=== PATIENT | male | born 1950 | race Caucasian/White ===

== ENCOUNTER 2020-04-22 06:16 | Outpatient (REF) | payer MEDICARE, SELFPAY ==
[2020-04-22 07:21] LABS: MANUAL DIFF FLAG NO
[2020-04-22 07:24] LABS: Basophils Percent Auto 0.5 % (0-2); Eosinophils Absolute Auto 0.3 X10*3/uL (0.0-0.4); Eosinophils Percent Auto 4.7 % (0-4); Hemoglobin 14.4 g/dl (14.0-18.0); Imm Gran Abs Auto 0.05 X10*3/uL (0.00-0.03); Imm Gran Pct Auto 0.8 % (0.0-0.4); Lymphocytes Absolute Auto 1.3 X10*3/uL (1.2-4.9); Lymphocytes Percent Auto 21.5 % (20-40); Mean Corpuscular HGB Conc 32.7 g/dl (31.0-36.0); Mean Corpuscular Volume 97.8 fL (80-98); Mean Platelet Volume 9.8 fL (9.4-12.4); Monocytes Absolute Auto 0.3 X10*3/uL (0.1-1.2); Monocytes Percent Auto 5.6 % (2-11); Neutrophils Absolute Auto 3.9 X10*3/uL (2.0-8.3); Neutrophils Percent Auto 66.9 % (45-73); Platelet Count 188 X10*3/uL (160-400); Red Cell Distribution Width 13.3 % (11.0-16.0); White Blood Count 5.9 X10*3/uL (4.8-10.8)
[2020-04-22 07:38] LABS: Glucose Urine UA NEG (NEG); Leukocyte Esterase Urine NEG (NEG); Nitrite Urine NEG (NEG); PH 5.5 (5.0-8.0); Specific Gravity - Urine >= 1.030 (1.005-1.025); Urine Blood 1+ (NEG); Urine Ketones NEG (NEG); Urine Protein 1+ MG/DL (NEG-TRACE)
[2020-04-22 07:39] LABS: Appearance Urine CLEAR; Color Urine YELLOW
[2020-04-22 07:40] LABS: Alanine Aminotransferase 12 U/L (0-40); Albumin Level 4.3 g/dL (3.5-5.0); Alkaline Phosphatase 91 U/L (39-117); Anion Gap 12 (12-20); Aspartate Amino Transferase 10 U/L (5-37); Bilirubin Total 0.5 mg/dL (0.0-1.0); Blood Urea Nitrogen 18 mg/dL (9-16); Calcium 8.8 mg/dL (8.4-10.2); Carbon Dioxide 28 mmol/L (22-29); Chloride 108 mmol/L (96-108); Cholesterol 128 mg/dL; Estimated Glomerular Filt Rate 57; Glucose Fasting 99 mg/dL (60-99); HDL Cholesterol 53 mg/dL; LDL Cholesterol Calculated 26 mg/dl; Potassium 4.5 mmol/l (3.3-5.1); Sodium 143 mmol/L (135-145); Total Protein 6.3 g/dL (6.5-8.0); Triglycerides 247 mg/dL
[2020-04-22 07:47] LABS: Squamous Epithelial Cell Urine TRACE /LPF; WBC Urine 0-2 /HPF (0-4)
[2020-04-22 07:53] LABS: Estimated Average Glucose 105 mg/dL; Hemoglobin A1c % 5.3 %
[2020-04-22 08:03] LABS: PSA,Total (Free>4and<10) < 0.05 ng/mL (0.00-4.00)
[2020-04-22 08:05] LABS: TSH reflex Free T4 0.48 mIU/mL (0.32-4.0)
[2020-04-22 08:16] LABS: Folate 19.8 ng/mL (> or = 4.0); Vitamin B12 563 pg/mL (200-900)
[2020-04-22 08:20] LABS: Mucus Urine TRACE /LPF
[2020-04-22 08:27] LABS: Reflex LDLD? No
== END 2020-04-22 06:17 | disposition home or self-care (01) ==
LOC: HO.LAB 06:16
PROVIDERS: PCP Internal Medicine; Visit Provider Internal Medicine
DX: Z00.00 Encounter for general adult medical examination without abnormal findings (principal); I10 Essential (primary) hypertension; E78.5 Hyperlipidemia, unspecified; R73.01 Impaired fasting glucose; R20.2 Paresthesia of skin; C61 Malignant neoplasm of prostate; K52.0 Gastroenteritis and colitis due to radiation; Z12.5 Encounter for screening for malignant neoplasm of prostate
CPT/HCPCS: 36415; 80053; 80061; 81001; 82607; 82746; 83036; 84153; 84443; 85025

== ENCOUNTER 2021-03-10 09:54 | Outpatient (REF) | payer MEDICARE, SELFPAY ==
[2021-03-10 10:11] LABS: MANUAL DIFF FLAG NO
[2021-03-10 10:27] LABS: Basophils Percent Auto 0.3 % (0-2); Eosinophils Absolute Auto 0.5 X10*3/uL (0.0-0.4); Hematocrit 49.3 % (42.0-52.0); Hemoglobin 15.9 g/dl (14.0-18.0); Imm Gran Abs Auto 0.06 X10*3/uL (0.00-0.03); Imm Gran Pct Auto 0.7 % (0.0-0.4); Lymphocytes Absolute Auto 1.6 X10*3/uL (1.2-4.9); Lymphocytes Percent Auto 17.3 % (20-40); Mean Corpuscular HGB Conc 32.3 g/dl (31.0-36.0); Mean Corpuscular Hemoglobin 31.5 pg (27.0-33.0); Mean Corpuscular Volume 97.6 fL (80.0-98.0); Mean Platelet Volume 9.8 fL (9.4-12.4); Monocytes Absolute Auto 0.6 X10*3/uL (0.1-1.2); Monocytes Percent Auto 6.8 % (2-11); Neutrophils Absolute Auto 6.2 x10*3/uL (2.0-8.3); Neutrophils Percent Auto 68.9 % (45-73); Platelet Count 224 X10*3/uL (160-400); Red Blood Count 5.05 X10*6/uL (4.60-5.80)
[2021-03-10 11:07] LABS: Appearance Urine CLEAR; Color Urine YELLOW; Glucose Urine UA NEG (NEG); Leukocyte Esterase Urine NEG (NEG); Nitrite Urine NEG (NEG); PH 6.5 (5.0-8.0); Urine Blood NEG (NEG); Urine Ketones NEG (NEG); Urine Protein NEG (NEG-TRACE)
[2021-03-10 11:11] LABS: Alanine Aminotransferase 19 U/L (0-40); Albumin Level 4.6 g/dL (3.5-5.0); Alkaline Phosphatase 86 U/L (39-117); Anion Gap 12 (12-20); Aspartate Amino Transferase 19 U/L (5-37); Bilirubin Total 0.5 mg/dL (0.0-1.0); Blood Urea Nitrogen 14 mg/dL (9-16); Calcium 9.8 mg/dL (8.4-10.2); Carbon Dioxide 28 mmol/L (22-29); Chloride 105 mmol/L (96-108); Cholesterol 173 mg/dL; Estimated Glomerular Filt Rate 60; Glucose Fasting 93 mg/dL (60-99); HDL Cholesterol 52 mg/dL; LDL Cholesterol Calculated 60 mg/dl; Potassium 4.4 mmol/L (3.3-5.1); Sodium 141 mmol/L (135-145); Total Protein 6.9 g/dL (6.5-8.0); Triglycerides 309 mg/dL
== END 2021-03-10 09:55 | disposition home or self-care (01) ==
LOC: HO.LAB 09:54
PROVIDERS: PCP Internal Medicine; Visit Provider Internal Medicine
DX: I10 Essential (primary) hypertension (principal); K52.0 Gastroenteritis and colitis due to radiation; E78.00 Pure hypercholesterolemia, unspecified; R73.01 Impaired fasting glucose
CPT/HCPCS: 36415; 80053; 80061; 81003; 85025

== ENCOUNTER 2021-07-14 12:43 | Outpatient (REF) | payer MEDICARE, SELFPAY ==
[2021-07-14 13:04] LABS: MANUAL DIFF FLAG NO
[2021-07-14 13:36] LABS: Basophils Percent Auto 0.3 % (0-2); Eosinophils Absolute Auto 0.5 X10*3/uL (0.0-0.4); Hematocrit 43.5 % (42.0-52.0); Hemoglobin 14.3 g/dl (14.0-18.0); Imm Gran Abs Auto 0.02 X10*3/uL (0.00-0.03); Imm Gran Pct Auto 0.3 % (0.0-0.4); Lymphocytes Absolute Auto 1.4 X10*3/uL (1.2-4.9); Lymphocytes Percent Auto 22.7 % (20-40); Mean Corpuscular HGB Conc 32.9 g/dl (31.0-36.0); Mean Corpuscular Hemoglobin 30.9 pg (27.0-33.0); Mean Platelet Volume 9.7 fL (9.4-12.4); Monocytes Absolute Auto 0.5 X10*3/uL (0.1-1.2); Monocytes Percent Auto 7.9 % (2-11); Neutrophils Absolute Auto 3.6 x10*3/uL (2.0-8.3); Neutrophils Percent Auto 60.8 % (45-73); Platelet Count 184 X10*3/uL (160-400); Red Blood Count 4.63 X10*6/uL (4.60-5.80)
[2021-07-14 14:06] LABS: Estimated Average Glucose 108 mg/dL; Hemoglobin A1c % 5.4 %
[2021-07-14 14:24] LABS: Alanine Aminotransferase 16 U/L (0-40); Albumin Level 4.5 g/dL (3.5-5.0); Alkaline Phosphatase 84 U/L (39-117); Anion Gap 12 (12-20); Aspartate Amino Transferase 17 U/L (5-37); Bilirubin Total 0.7 mg/dL (0.0-1.0); Blood Urea Nitrogen 25 mg/dL (9-16); Calcium 9.1 mg/dL (8.4-10.2); Carbon Dioxide 24 mmol/L (22-29); Chloride 104 mmol/L (96-108); Cholesterol 133 mg/dL; Estimated Glomerular Filt Rate 54; Glucose Fasting 80 mg/dL (60-99); HDL Cholesterol 39 mg/dL; LDL Cholesterol Calculated 64 mg/dl; Potassium 4.3 mmol/L (3.3-5.1); Sodium 136 mmol/L (135-145); Total Protein 6.7 g/dL (6.5-8.0); Triglycerides 154 mg/dL
[2021-07-14 14:47] LABS: Vitamin D 25-OH Total 38.8 ng/mL (>30)
[2021-07-14 14:47] LABS: Appearance Urine CLEAR; Color Urine YELLOW; Glucose Urine UA NEG (NEG); Leukocyte Esterase Urine NEG (NEG); Nitrite Urine NEG (NEG); PH 5.5 (5.0-8.0); Specific Gravity - Urine >= 1.030 (1.005-1.025); Urine Blood NEG (NEG); Urine Ketones NEG (NEG); Urine Protein NEG (NEG-TRACE)
== END 2021-07-14 12:44 | disposition home or self-care (01) ==
LOC: HO.LAB 12:43
PROVIDERS: PCP Internal Medicine; Visit Provider Internal Medicine
DX: I10 Essential (primary) hypertension (principal); E78.00 Pure hypercholesterolemia, unspecified; E55.9 Vitamin D deficiency, unspecified; R73.01 Impaired fasting glucose
CPT/HCPCS: 36415; 80053; 80061; 81003; 82306; 83036; 84443; 85025

== ENCOUNTER → 2021-08-14 07:44 | Outpatient (BNVA) | payer MEDICARE, SELFPAY | PROVIDERS: PCP Internal Medicine; Referring Provider Internal Medicine; Visit Provider Physician Assistant | DX: R19.5 Other fecal abnormalities (principal); K57.30 Diverticulosis of large intestine without perforation or abscess without bleeding; Z79.02 Long term (current) use of antithrombotics/antiplatelets; Z79.891 Long term (current) use of opiate analgesic | CPT/HCPCS: 99202 ==

== ENCOUNTER → 2021-08-21 15:27 | Outpatient (BNVA) | payer MEDICARE, SELFPAY | PROVIDERS: PCP Internal Medicine; Referring Provider Internal Medicine; Visit Provider Surgery | DX: R19.8 Other specified symptoms and signs involving the digestive system and abdomen (principal); K64.9 Unspecified hemorrhoids | CPT/HCPCS: 46600; 99202 ==

== ENCOUNTER 2021-10-16 13:10 | Outpatient (REF) | payer MEDICARE, SELFPAY ==
[2021-10-16 13:27] LABS: MANUAL DIFF FLAG NO
[2021-10-16 13:45] LABS: Basophils Percent Auto 0.3 % (0-2); Eosinophils Absolute Auto 0.5 X10*3/uL (0.0-0.4); Hematocrit 42.8 % (42.0-52.0); Hemoglobin 14.2 g/dl (14.0-18.0); Imm Gran Abs Auto 0.03 X10*3/uL (0.00-0.03); Imm Gran Pct Auto 0.3 % (0.0-0.4); Lymphocytes Absolute Auto 1.4 X10*3/uL (1.2-4.9); Lymphocytes Percent Auto 15.7 % (20-40); Mean Corpuscular HGB Conc 33.2 g/dl (31.0-36.0); Mean Corpuscular Volume 93.4 fL (80.0-98.0); Mean Platelet Volume 9.9 fL (9.4-12.4); Monocytes Absolute Auto 0.7 X10*3/uL (0.1-1.2); Monocytes Percent Auto 7.5 % (2-11); Neutrophils Absolute Auto 6.5 x10*3/uL (2.0-8.3); Neutrophils Percent Auto 71.2 % (45-73); Platelet Count 191 X10*3/uL (160-400); Red Blood Count 4.58 X10*6/uL (4.60-5.80); Red Cell Distribution Width 13.2 % (11.0-16.0); White Blood Count 9.1 X10*3/uL (4.8-10.8)
[2021-10-16 14:09] LABS: Alanine Aminotransferase 13 U/L (0-40); Albumin Level 4.4 g/dL (3.5-5.0); Alkaline Phosphatase 77 U/L (39-117); Anion Gap 12 (12-20); Aspartate Amino Transferase 19 U/L (5-37); Bilirubin Total 0.5 mg/dL (0.0-1.0); Blood Urea Nitrogen 18 mg/dL (9-16); Calcium 9.1 mg/dL (8.4-10.2); Carbon Dioxide 25 mmol/L (22-29); Chloride 103 mmol/L (96-108); Cholesterol 130 mg/dL; Estimated Glomerular Filt Rate 48; Glucose Fasting 99 mg/dL (60-99); HDL Cholesterol 38 mg/dL; LDL Cholesterol Calculated 58 mg/dl; Potassium 5.1 mmol/L (3.3-5.1); Sodium 135 mmol/L (135-145); Total Protein 6.5 g/dL (6.5-8.0); Triglycerides 173 mg/dL
[2021-10-16 14:13] LABS: Estimated Average Glucose 108 mg/dL; Hemoglobin A1c % 5.4 %
[2021-10-16 14:17] LABS: Appearance Urine CLEAR; Color Urine YELLOW; Glucose Urine UA NEG (NEG); Leukocyte Esterase Urine NEG (NEG); Nitrite Urine NEG (NEG); PH 5.5 (5.0-8.0); Urine Blood NEG (NEG); Urine Ketones NEG (NEG); Urine Protein TRACE MG/DL (NEG-TRACE)
[2021-10-16 14:32] LABS: Vitamin D 25-OH Total 37.7 ng/mL (>30)
== END 2021-10-16 13:11 | disposition home or self-care (01) ==
LOC: HO.LAB 13:10
PROVIDERS: PCP Internal Medicine; Visit Provider Internal Medicine
DX: I10 Essential (primary) hypertension (principal); E78.00 Pure hypercholesterolemia, unspecified; R73.01 Impaired fasting glucose; E55.9 Vitamin D deficiency, unspecified
CPT/HCPCS: 36415; 80053; 80061; 81003; 82306; 83036; 84443; 85025

== ENCOUNTER 2021-12-11 07:16 | Day surgery (SDC) | payer MEDICARE, SELFPAY ==
--- NOTE | 2021-12-10 12:10 | HO.ANESPROP2 ---
Documented by User: Kateryna Armenta NP 12/10/21 12:12 HPI - Anesthesia Eval Consult details Narrative: 71yo M for Colonoscopy Plavix s/p carotid artery stenting 2014 [facility] Active Problems Active Problems: All Active Problems (Updated 10/20/21 @ 10:54 by Jayy Foster MD) Annual physical exam (Acute) Anal discharge (Acute) Encounter for long-term (current) use of antiplatelets/antithrombotics (Acute) Diverticulosis of colon (Acute) Positive colorectal cancer screening using Cologuard test (Acute) Perianal lesion (Acute) Perianal infection (Acute) Epilepsy (Acute) Depression (Acute) Anxiety (Acute) Prostate cancer (Acute) Restless legs syndrome (Acute) Radiation colitis (Acute) Degenerative disc disease, cervical (Acute) Impaired fasting glucose (Acute) Pure hypercholesterolemia (Acute) Bilateral carotid artery stenosis (Acute) Benign essential hypertension (Acute) Past Medical History Medical History Anal discharge Anxiety Basilar artery aneurysm Benign essential hypertension Bilateral carotid artery stenosis Cerebellar hemorrhage Degenerative disc disease, cervical Depression Epilepsy Impaired fasting glucose Prostate cancer Pure hypercholesterolemia Radiation colitis Restless legs syndrome Family History Family History Father Cancer Mother Chronic mental illness Son In good health Daughter In good health Surgical History Surgical History H/O radical prostatectomy History of common carotid artery stent placement History of inguinal hernia repair Hx of colonoscopy Social History Social History Housing: House Alcohol intake: never Patient Tobacco Use Status: Former Tobacco user Quit Date: quit 7 yrs ago Tobacco use type: Cigarette e-Cigarette/Vaping Use: Never Used Second Hand Smoke Exposure: No Substance Use Type: Marijuana Substance Use Frequency: Daily Are you DNR?: No Advance Directives: No Advance Directives Information Provided: Yes service: No Current occupational status: retired Cognitive needs: No Hearing needs: No Vision needs: Yes Meds Allergies Allergy/AdvReac Type Severity Reaction Status Date / Time zolpidem AdvReac Unknown sleepwalkin Verified 10/20/21 10:37 g Home Medications Medication Instructions Recorded Confirmed Last Taken Type clopidogrel 75 mg tablet 75 mg PO DAILY 08/14/21 10/20/21 Unknown History Exam Exam Date and Time: December 10, 2021 1210 Pertinent Lab Results Pertinent Lab Results: Laboratory Tests 10/16/21 10/16/21 13:25 13:25 WBC 9.1 Hgb 14.2 Hct 42.8 Plt Count 191 Sodium 135 Potassium 5.1 Chloride 103 Carbon Dioxide 25 BUN 18 H Creatinine 1.44 H Assessment and Plan Assessment Anesthesia Assessment: Chart Reviewed Documented by User: Selin Valerio MD 12/11/21 09:00 PMFSH Past Medical History Medical History Anal discharge Anxiety Basilar artery aneurysm Benign essential hypertension Bilateral carotid artery stenosis Cerebellar hemorrhage Degenerative disc disease, cervical Depression Epilepsy Impaired fasting glucose Prostate cancer Pure hypercholesterolemia Radiation colitis Restless legs syndrome Functional capacity: independent ambulation Family History Family History Father Cancer Mother Chronic mental illness Son In good health Daughter In good health Family history of problems with anesthesia: No Surgical History Surgical History H/O radical prostatectomy History of common carotid artery stent placement History of inguinal hernia repair Hx of colonoscopy History of Problems with Anesthesia: No Social History Social History Housing: House Alcohol intake: never Patient Tobacco Use Status: Former Tobacco user Quit Date: quit 7 yrs ago Tobacco use type: Cigarette e-Cigarette/Vaping Use: Never Used Second Hand Smoke Exposure: No Substance Use Type: Marijuana Substance Use Frequency: Daily Are you DNR?: No Advance Directives: No Advance Directives Information Provided: Yes service: No Current occupational status: retired Cognitive needs: No Hearing needs: No Vision needs: Yes Meds Allergies Allergy/AdvReac Type Severity Reaction Status Date / Time zolpidem AdvReac Unknown sleepwalkin Verified 10/20/21 10:37 g Home Medications Medication Instructions Recorded Confirmed Last Taken Type clopidogrel 75 mg tablet 75 mg PO DAILY 08/14/21 10/20/21 Unknown History Exam Airway Mallampati Class: III TM Dist: >3cm Neck ROM: Full Heart: RRR Lungs: CTA Assessment and Plan Final Anesthetic Review Family History of Problems with Anesthesia: No History of Problems with Anesthesia: No ASA Class: III Final Preanesthetic Review: No Changes in Pt Med Stat, Meds/Allgs Chart Reviewed, Consent Obtained/Reviewed and Anes Risks/Benef Reviewed Patient Risk: Low Anesthetic Plan Anesthetic Plan: MAC: Disposition: Standard PACU
[2021-12-11 07:44] VITALS: BMI 21.1
[2021-12-11] MEDS: Lactated Ringers 1,000 ML 100 ML IVCONT (07:54)
[2021-12-11 07:55] VITALS: BP 134/80; PULSE 80; RESP 16; TEMP 36.2; O2SAT 97
--- NOTE | 2021-12-11 08:53 | MHC.SHP ---
Pre-Procedural Eval Section A Date of Service: 12/11/21 Section B Chief Complaint: fecal abnormalities Relevant Family History (Specify if Yes): No Relevant Social History: Other (specify) (THC use) Present Medications: see Short Stay Collaborative assessment Medical History: Significant History (Anal discharge Anxiety Basilar artery aneurysm Benign essential hypertension Bilateral carotid artery stenosis Cerebellar hemorrhage Degenerative disc disease, cervical Depression Epilepsy Impaired fasting glucose Prostate cancer Pure hypercholesterolemia Radiation colitis Restless legs syndrome) History of Previous Operations: Relevant previous surgery/procedure and date(s) (H/O radical prostatectomy History of common carotid artery stent placement History of inguinal hernia repair Hx of colonoscopy) Allergies: Allergies Allergy/AdvReac Type Severity Reaction Status Date / Time zolpidem AdvReac Unknown sleepwalkin Verified 10/20/21 10:37 g Review of Systems Sugical H&P ROS: Negative: Constitution, Cardiovascular, Respiratory, Neurological, Psychiatric, Hem-Onc, Allergic/Immunologic, Gastrointestinal, Genitourinary, Musculoskeletal, Integumentary, Endocrine and Eyes/Ears/Nose/Throat Exam Surgical H&P Exam: Normal: HEENT, Normal: Heart, Normal: Lungs, Normal: Extremities, Normal: Abdomen, Normal: Skin and Normal: Neurological Plan Diagnosis/Plan: Unchanged I have reviewed the history and physical and performed a pertinent physical examination on my patient. No changes have occurred unless specified.
--- NOTE | 2021-12-11 09:17 | P.OP_ITS ---
Operative Note Operative Note Date of Service: 12/11/21 Narrative: Operative Information Procedure Description: Colonoscopy Indication: pos cologuard Anesthesia: MAC COLONOSCOPY Instrument: Olympus variable stiffness pediatric scope 190L Colonoscopy Monitoring: Vital signs and clinical assessment, continuous EKG monitoring, Pulse oximetry, Carbon Dioxide monitoring and blood pressure monitoring were done throughout the procedure. Colon withdrawal time was 15 minutes. Procedure: The patient was placed in the left lateral decubitis position and pre-procedure medications were administered. After a digital rectal examination of the ano-rectum, the video colonoscope was inserted into the rectum and advanced through the colon to the cecum/TI. The colonoscope was slowly withdrawn in a retrograde panoramic fashion and the colon mucosa was carefully examined including a retroflexed view of the rectum. Findings and interventions are described below. Procedure Difficulty: easy Findings: Terminal Ileum-normal Cecum:normal Ascending Colon: mild diverticulosis Transverse Colon -normal Descending Colon:normal Sigmoid Colon: severe diverticulosis with luminal narrowing and mucosal hypertrophy Rectum: Retroflexion not done due to rectal inflammation and ucleration. At analrectal junction a shallow ulceration 10-12 mm with surrounding edema and induration noted, bx taken, Also scattered telangiectasia seen compatible with radiation proctitis. At the rectosigmoid junction there was a12 mm semi peudculated polyp which was injected with few cc of epinephrine and then removed with hot snare. Edges ablated with soft tip coag. Anorectum - normal Colon preparation: [place] Bowel Preparation Scale Right colon; 3 Transverse colon: 3 Left colon; 3 (0 = Unprepared colon segment with mucosa not seen due to solid stool that cannot be cleared. 1 = Portion of mucosa of the colon segment seen, but other areas of the colon segment not well seen due to staining, residual stool and/or opaque liquid. 2 = Minor amount of residual staining, small fragments of stool and/or opaque liquid, but mucosa of colon segment seen well. 3 = Entire mucosa of colon segment seen well with no residual staining, small fragments of stool or opaque liquid) Impression and Post Procedure Diagnosis: polyp rectal ulceration radiation proctitis (RAVE) diverticular disease Plan: High fiber diet leaflet Avoid straining at stool, epsom salts and sitz bath, anusol supps or cream Repeat Colonoscopy in 6-12 month or earlier if clinically indicated depending on path may need steroid cream, avoid constipation. restart plavix tomorrow Above findings were reviewed with the patient and relevant handouts were provided if indicated.
[2021-12-11 09:23] VITALS: BP 106/55; PULSE 64; RESP 16; TEMP 36.5; O2SAT 96
[2021-12-11 09:38] VITALS: BP 140/74; PULSE 60; RESP 16; TEMP 36.5; O2SAT 96
[2021-12-11 09:53] VITALS: BP 152/86; PULSE 69; RESP 16; O2SAT 96
[2021-12-11 10:08] VITALS: BP 160/80; PULSE 71; RESP 16; TEMP 36.6; O2SAT 95
--- NOTE | 2021-12-11 13:22 | HO.POSTANES ---
Post Anesthesia Evaluation Post Anesthesia Evaluation Vital Signs: Vital Signs Temp Pulse Resp BP Pulse Ox O2 Del Method 12/11/21 10:08 97.9 F 71 16 160/80 H 95 Room Air 12/11/21 09:53 69 16 152/86 H 96 Room Air 12/11/21 09:38 97.7 F 60 16 140/74 H 96 Room Air 12/11/21 09:23 97.7 F 64 16 106/55 L 96 Room Air 12/11/21 07:55 97.2 F 80 16 134/80 97 Room Air Anesthesia: Monitored Mental Status: Awake Pain Control: Satisfactory Nausea/Vomiting: None Hydration: Adequate Anesthesia-Related Issues: No Anes. Related Issues
== END 2021-12-11 10:42 ==
LOC: HO.SSS 07:16
PROVIDERS: PCP Internal Medicine; Visit Provider Internal Medicine Gastroenterology
PROC: 0DJD8ZZ Inspection of Lower Intestinal Tract, Via Natural or Artificial Opening Endoscopic (ICD-10-PCS; CPT 45378; principal; 2021-12-11 08:30)
DX: R19.5 Other fecal abnormalities (principal); D12.8 Benign neoplasm of rectum; K62.6 Ulcer of anus and rectum; K57.30 Diverticulosis of large intestine without perforation or abscess without bleeding; K62.7 Radiation proctitis; Y84.2 Radiological procedure and radiotherapy as the cause of abnormal reaction of the patient, or of later complication, without mention of misadventure at the time of the procedure; K31.819 Angiodysplasia of stomach and duodenum without bleeding; G40.909 Epilepsy, unspecified, not intractable, without status epilepticus; I10 Essential (primary) hypertension; F32.A Depression, unspecified; R73.02 Impaired glucose tolerance (oral); Z85.46 Personal history of malignant neoplasm of prostate; Z79.899 Other long term (current) drug therapy; Z79.02 Long term (current) use of antithrombotics/antiplatelets; Z88.8 Allergy status to other drugs, medicaments and biological substances; Z92.3 Personal history of irradiation; Z87.891 Personal history of nicotine dependence
CPT/HCPCS: 45385; 45380; 88305; J0171

== ENCOUNTER → 2021-12-25 11:03 | Outpatient (BNVA) | payer MEDICARE, SELFPAY | PROVIDERS: PCP Internal Medicine; Visit Provider Physician Assistant | DX: D12.8 Benign neoplasm of rectum (principal); Z98.890 Other specified postprocedural states | CPT/HCPCS: Q3014 ==

== ENCOUNTER 2022-01-08 06:07 | Outpatient (REF) | payer MEDICARE, SELFPAY ==
[2022-01-08 07:25] LABS: Basophils Absolute Auto 0.1 X10*3/uL (0.0-0.2); Basophils Percent Auto 0.6 % (0-2); Eosinophils Absolute Auto 0.3 X10*3/uL (0.0-0.4); Eosinophils Percent Auto 3.9 % (0-4); Hematocrit 49.8 % (42.0-52.0); Hemoglobin 16.2 g/dl (14.0-18.0); Imm Gran Abs Auto 0.03 X10*3/uL (0.00-0.03); Imm Gran Pct Auto 0.4 % (0.0-0.4); Lymphocytes Percent Auto 23.8 % (20-40); MANUAL DIFF FLAG SCAN; Mean Corpuscular HGB Conc 32.5 g/dl (31.0-36.0); Mean Corpuscular Hemoglobin 30.3 pg (27.0-33.0); Mean Corpuscular Volume 93.1 fL (80.0-98.0); Mean Platelet Volume 11.1 fL (9.4-12.4); Monocytes Absolute Auto 0.7 X10*3/uL (0.1-1.2); Monocytes Percent Auto 7.9 % (2-11); Neutrophils Absolute Auto 5.4 x10*3/uL (2.0-8.3); Neutrophils Percent Auto 63.4 % (45-73); PLT CLUMP 1; Red Blood Count 5.35 X10*6/uL (4.60-5.80); Red Cell Distribution Width 14.2 % (11.0-16.0); SCAN SMEAR FLAG 1
[2022-01-08 07:26] LABS: Platelet Count 169 X10*3/uL (160-400); White Blood Count 8.6 X10*3/uL (4.8-10.8)
[2022-01-08 07:32] LABS: Appearance Urine Clear; Color Urine Yellow; Estimated Average Glucose 103 mg/dL; Glucose Urine UA Negative (Negative); Hemoglobin A1c % 5.2 %; Leukocyte Esterase Urine Negative (Negative); Nitrite Urine Negative (Negative); Specific Gravity - Urine >= 1.030 (1.005-1.025); UMIC TRIGGER UACC YES; Urine Blood Negative (Negative); Urine Ketones Negative (Negative); Urine Protein 30 (1+) mg/dL (Neg-Trace)
[2022-01-08 07:41] LABS: WBC Urine 0-5 /HPF (0-5)
[2022-01-08 07:42] LABS: Bacteria Urine None Seen (None Seen); Granular Casts Urine Present; Hyaline Casts Urine 0-2 /LPF (0-2); RBC Urine 0-2 /HPF (0-2); Squamous Epithelial Cell Urine 0-2 /HPF (0-2)
[2022-01-08 07:46] LABS: SLIDE REVIEW VERIFIED
[2022-01-08 07:49] LABS: Alanine Aminotransferase 22 U/L (0-40); Albumin Level 4.7 g/dL (3.5-5.0); Alkaline Phosphatase 89 U/L (39-117); Anion Gap 17 (12-20); Aspartate Amino Transferase 24 U/L (5-37); Bilirubin Total 0.6 mg/dL (0.0-1.0); Blood Urea Nitrogen 17 mg/dL (9-16); Calcium 9.6 mg/dL (8.4-10.2); Carbon Dioxide 23 mmol/L (22-29); Chloride 105 mmol/L (96-108); Cholesterol 146 mg/dL; Estimated Glomerular Filt Rate 52; Glucose Fasting 100 mg/dL (60-99); HDL Cholesterol 44 mg/dL; LDL Cholesterol Calculated 74 mg/dl; Potassium 4.6 mmol/L (3.3-5.1); Sodium 140 mmol/L (135-145); Total Protein 7.2 g/dL (6.5-8.0); Triglycerides 143 mg/dL
[2022-01-08 08:23] LABS: Folate > 20.0 ng/mL (> or = 4.0); Vitamin B12 1120 pg/mL (200-900)
[2022-01-08 08:56] LABS: Prostate Specific Antigen < 0.05 ng/mL (<0.05-4.0); TSH reflex Free T4 1.08 uIU/mL (0.32-4.0); Vitamin D 25-OH Total 46.4 ng/mL (>30)
== END 2022-01-08 06:08 | disposition home or self-care (01) ==
LOC: HO.LAB 06:07
PROVIDERS: PCP Internal Medicine; Visit Provider Internal Medicine
DX: Z00.00 Encounter for general adult medical examination without abnormal findings (principal); Z12.5 Encounter for screening for malignant neoplasm of prostate; I10 Essential (primary) hypertension; N40.0 Benign prostatic hyperplasia without lower urinary tract symptoms; R73.01 Impaired fasting glucose; E53.8 Deficiency of other specified B group vitamins; E78.00 Pure hypercholesterolemia, unspecified; E55.9 Vitamin D deficiency, unspecified
CPT/HCPCS: 36415; 80053; 80061; 81001; 82306; 82607; 82746; 83036; 84153; 84443; 85025

== ENCOUNTER 2022-01-09 11:23 | Emergency (ER) | payer MEDICARE, SELFPAY ==
[2022-01-09] VITALS (7 sets, daily range): BP systolic 65–148; BP diastolic 52–83; PULSE 92–111; RESP 18–26; TEMP 36.6–36.8; O2SAT 98–100
--- NOTE | ~2022-01-09 | CT_ITS ---
EXAMINATION: CT ABDOMEN AND PELVIS WITHOUT AND WITH CONTRAST CLINICAL INFORMATION: GI bleeding. COMPARISON: 08/12/2018. TECHNIQUE: Contiguous axial thin section helical images of the abdomen and pelvis were performed following the administration of oral contrast and 80 mL of intravenous Omnipaque 350. The data set was reformatted in the coronal and sagittal planes and reviewed on an independent workstation. This CT examination was performed using dose optimization techniques as appropriate, variously including the following: *Automated exposure control *Adjustment of mA and/or kV according to patient size (this includes techniques or standardized protocols for targeted exams where dose is matched to indication/reason for exam; i.e. extremities or head) *Use of iterative reconstruction technique DLP: 1140 mGy-cm FINDINGS: GASTROINTESTINAL TRACT: There is severe diverticulosis throughout the colon especially distal colon but no definite acute transition of contrast is seen to indicate active bleeding. There is no discernible mass contrast blush or abnormal enhancement. LUNG BASES: No focal parenchymal or pleural disease. No pericardial effusion. LIVER, GALLBLADDER, BILIARY TREE: Within normal limits. No focal lesion. PANCREAS: No mass or inflammatory changes. Incidental punctate calcific lesion within the body. SPLEEN: No focal lesion or enlargement. ADRENAL GLANDS AND KIDNEYS: No focal lesion. No mass, calculus or hydronephrosis. Tiny subcentimeter posterior exophytic cyst lower mid pole right kidney. PELVIS: There is no pelvic mass. Pelvic organs within normal limits. URETERS AND BLADDER: . LYMPHOVASCULAR STRUCTURES: No pathologic enlargement. BONES: No lytic or sclerotic lesions. No fracture. CT/CT gi bleed abd pel wo/w IVcon IMPRESSION: Severe diverticulosis but no active sites of bleeding is noted. No new findings since baseline exam..
--- NOTE | 2022-01-09 11:29 | ECG_ITS ---
Test Reason : Tachycardia Blood Pressure : / mmHG Vent. Rate : 111 BPM Atrial Rate : 111 BPM P-R Int : 174 ms QRS Dur : 074 ms QT Int : 328 ms P-R-T Axes : 083 -46 075 degrees QTc Int : 446 ms Sinus tachycardia Left axis deviation Abnormal ECG When compared with ECG of 02-JAN-2006 05:40, Nonspecific T wave abnormality is no longer Present Heart rate has increased Referred By: Steve Velez Electronically Signed By:JOSSE SANTAMARIA
[2022-01-09 11:48] LABS: MANUAL DIFF FLAG NO
[2022-01-09] MEDS: 0.9 % Sodium Chloride 1,000 ML 999 ML IV (11:48)
[2022-01-09 11:50] LABS: Basophils Absolute Auto 0.1 X10*3/uL (0.0-0.2); Basophils Percent Auto 0.6 % (0-2); Eosinophils Absolute Auto 0.3 X10*3/uL (0.0-0.4); Eosinophils Percent Auto 2.3 % (0-4); Hematocrit 39.5 % (42.0-52.0); Hemoglobin 13.1 g/dl (14.0-18.0); Imm Gran Abs Auto 0.05 X10*3/uL (0.00-0.03); Imm Gran Pct Auto 0.5 % (0.0-0.4); Lymphocytes Absolute Auto 1.9 X10*3/uL (1.2-4.9); Lymphocytes Percent Auto 17.5 % (20-40); Mean Corpuscular HGB Conc 33.2 g/dl (31.0-36.0); Mean Corpuscular Hemoglobin 30.8 pg (27.0-33.0); Mean Corpuscular Volume 92.9 fL (80.0-98.0); Mean Platelet Volume 9.7 fL (9.4-12.4); Monocytes Absolute Auto 0.8 X10*3/uL (0.1-1.2); Monocytes Percent Auto 7.4 % (2-11); Neutrophils Absolute Auto 7.7 x10*3/uL (2.0-8.3); Neutrophils Percent Auto 71.7 % (45-73); Platelet Count 181 X10*3/uL (160-400); Red Blood Count 4.25 X10*6/uL (4.60-5.80); Red Cell Distribution Width 13.9 % (11.0-16.0); White Blood Count 10.7 X10*3/uL (4.8-10.8)
[2022-01-09 12:02] LABS: Prothrombin Time 11.7 SEC (10.0-13.1)
[2022-01-09 12:06] LABS: COVID-19 Test Negative (Negative)
[2022-01-09 12:09] LABS: Troponin-I High Sensitivity 5.4 ng/L (<3.5-35.0)
[2022-01-09 12:23] LABS: Alanine Aminotransferase 19 U/L (0-40); Albumin Level 3.9 g/dL (3.5-5.0); Alkaline Phosphatase 68 U/L (39-117); Anion Gap 17 (12-20); Aspartate Amino Transferase 19 U/L (5-37); Bilirubin Total 0.7 mg/dL (0.0-1.0); Blood Urea Nitrogen 19 mg/dL (9-16); Calcium 8.7 mg/dL (8.4-10.2); Carbon Dioxide 18 mmol/L (22-29); Chloride 107 mmol/L (96-108); Creatinine Clr Calc Pharmacy 50.1; Estimated Glomerular Filt Rate 55; Glucose Random 123 mg/dL (60-115); Potassium 4.8 mmol/L (3.3-5.1); Sodium 137 mmol/L (135-145); Total Protein 5.9 g/dL (6.5-8.0)
--- NOTE | 2022-01-09 13:21 | ED.GENADULT ---
HPI - General Adult General Chief complaint: General Medical Stated complaint: RECTAL BLEED Time Seen by Provider: 01/09/22 11:28 Source: patient Mode of arrival: ambulatory Limitations: no limitations History of Present Illness HPI narrative: Patient's history of prostate cancer status post radiation proctitis had colonoscopy on 12/11 which showed and anorectal junction shallow ulceration 10-12 mm with surrounding edema and induration without any active bleeding with severe diverticulosis comes here for rectal bleed which started earlier today. Patient had normal bowel movement x3 in the morning followed by about 8-10 times fresh blood rectal bleeding with blood clots no abdominal pain or rectal pain patient never had bleeding like this in the past patient feels slightly weak . Denies any palpitation or dizziness syncope. Patient is on aspirin and Plavix which he took last night on arrival patient's blood pressure 138/83 pulse rate of 111 Related Data Home Medications Medication Instructions Recorded Confirmed clopidogrel 75 mg tablet 75 mg PO DAILY 08/14/21 10/20/21 Previous Rx's Medication Instructions Recorded quetiapine 100 mg tablet 100 mg PO BEDTIME #90 tabs 03/12/21 paroxetine HCl 40 mg tablet 40 mg PO QAM 90 days #90 tabs 09/05/21 diazepam 5 mg tablet 5 mg PO BID PRN anxiety 7 days #14 10/20/21 tabs hydroxyzine HCl 50 mg tablet 50 mg PO TID PRN anxiety 30 days 10/20/21 #90 tabs mirtazapine 30 mg tablet 30 mg PO BEDTIME 90 days #90 tabs 10/21/21 ropinirole 3 mg tablet 3 mg PO BEDTIME 90 days #90 tabs 10/21/21 lisinopril 20 mg tablet 20 mg PO DAILY #90 tabs 12/09/21 docusate sodium 100 mg capsule 100 mg PO BEDTIME 30 days #30 caps 12/25/21 (Colace) oxycodone 10 mg tablet 10 mg PO BID 30 days #60 tabs 12/25/21 rosuvastatin 40 mg tablet 40 mg PO DAILY #30 tabs 12/31/21 hydrocortisone 1 %-pramoxine 1 % 1 appl AR BID PRN hemorrhoids #10 01/09/22 rectal foam (Proctofoam HC) grams Allergies Allergy/AdvReac Type Severity Reaction Status Date / Time zolpidem AdvReac Unknown sleepwalkin Verified 12/25/21 11:04 g Review of Systems Review of Systems: Yes all other systems are reviewed and are negative [facility] Past Medical History Medical History (Updated 01/09/22 @ 17:15 by Steve Velez MD) Anal discharge Anxiety Basilar artery aneurysm Benign essential hypertension Bilateral carotid artery stenosis Cerebellar hemorrhage Degenerative disc disease, cervical Depression Epilepsy Impaired fasting glucose Prostate cancer Pure hypercholesterolemia Radiation colitis Restless legs syndrome Surgical History (Updated 12/25/21 @ 11:18 by Nuzhat Zarate PA-C) H/O radical prostatectomy History of common carotid artery stent placement History of inguinal hernia repair Hx of colonoscopy Family History Family History Father Cancer Mother Chronic mental illness Son In good health Daughter In good health Social History Social History Housing: House Alcohol intake: never Patient Tobacco Use Status: Former Tobacco user Quit Date: quit 7 yrs ago Tobacco use type: Cigarette Smoked in Last 30 Days: No e-Cigarette/Vaping Use: Never Used Second Hand Smoke Exposure: No Use of substances other than those prescribed or required for medical reasons: Yes Substance Use Type: Marijuana Advance Directives: No service: No Current occupational status: retired Cognitive needs: No Hearing needs: No Vision needs: Yes Physical Exam ED Vital Signs: Vital Signs - 24 hr 01/09/22 11:24 01/09/22 12:45 01/09/22 13:41 Temperature 98.2 F 97.9 F Pulse Rate 111 H 98 96 Respiratory Rate 22 H 24 H 26 H Blood Pressure 138/83 93/69 125/77 Pulse Oximetry 98 99 100 Oxygen Delivery Method Room Air Room Air Room Air 01/09/22 15:54 01/09/22 15:55 01/09/22 15:56 Temperature Pulse Rate 93 92 94 Respiratory Rate 18 Blood Pressure 129/79 138/79 148/76 H Pulse Oximetry 100 Oxygen Delivery Method Room Air 01/09/22 15:57 Temperature Pulse Rate 107 H Respiratory Rate Blood Pressure 112/83 Pulse Oximetry Oxygen Delivery Method BMI result Body Mass Index 20.0 Appearance: Alert. Oriented X3. No acute distress. Eyes: Slight pallor ENT: Pharynx normal. Oral Mucosa moist Neck: Normal inspection. Neck supple. CVS: Normal heart rate and rhythm. Pulses normal. Respiratory: No respiratory distress. Equal air entry bilateral, no wheezing/rales/rhonchi Abdomen: Soft and nontender. Bowel sounds are present, no mass palpable, no CVA tenderness Skin: Skin warm and dry. Normal skin color. Normal skin turgor. Extremities: No lower extremity edema. No calf tenderness Neuro: Oriented X 3. No motor deficit. No sensory deficit.No cerebellar signs , cranial nerves II-XII intact Medical Decision Making MDM Narrative Medical decision making narrative: Patient with the rectal bleeding in the ER patient had only 1 time small amount of blood repeat orthostatics were normal patient denies any dizziness no abdominal pain CT angio for GI bleed was negative. Patient H and H on 01/08 was 16.2/49.8 and today was 13.1/39.5 patient was giving 1 g of TXA and Proctofoam suppository patient refused to stay in the hospital. Case discussed with Dr. Brooks patient gastroenterology Lab Data Lab results reviewed: Yes I reviewed the patient's lab results. Result diagrams: 01/09/22 11:41 01/09/22 11:41 Labs: Lab Results 01/09/22 01/09/22 01/09/22 Range/Units 11:36 11:41 11:41 WBC 10.7 (4.8-10.8) X10*3/uL RBC 4.25 L D (4.60-5.80) X10*6/uL Hgb 13.1 L (14.0-18.0) g/dl Hct 39.5 L D (42.0-52.0) % MCV 92.9 (80.0-98.0) fL MCH 30.8 (27.0-33.0) pg MCHC 33.2 (31.0-36.0) g/dl RDW 13.9 (11.0-16.0) % Plt Count 181 (160-400) X10*3/uL MPV 9.7 (9.4-12.4) fL Immature Gran % (Auto) 0.5 H (0.0-0.4) % Neut % (Auto) 71.7 (45-73) % Lymph % (Auto) 17.5 L (20-40) % Love % (Auto) 7.4 (2-11) % Eos % (Auto) 2.3 (0-4) % Baso % (Auto) 0.6 (0-2) % Lymph # (Auto) 1.9 (1.2-4.9) X10*3/uL Love # (Auto) 0.8 (0.1-1.2) X10*3/uL Eos # (Auto) 0.3 (0.0-0.4) X10*3/uL Baso # (Auto) 0.1 (0.0-0.2) X10*3/uL Abs Immat Gran (auto) 0.05 H (0.00-0.03) X10*3/uL Absolute Neuts (auto) 7.7 (2.0-8.3) x10*3/uL Absolute Nucleated RBC 0.000 (0.0-0.012) X10*3/uL Nucleated RBC % (auto) 0.0 (0.0-0.2) /100WBC PT 11.7 (10.0-13.1) SEC INR 1.0 (0.9-1.1) Sodium (135-145) mmol/L Potassium (3.3-5.1) mmol/L Chloride (96-108) mmol/L Carbon Dioxide (22-29) mmol/L Anion Gap (12-20) BUN (9-16) mg/dL Creatinine (0.5-1.4) mg/dL Estim Creat Clear Calc Estimated GFR Random Glucose (60-115) mg/dL Calcium (8.4-10.2) mg/dL Total Bilirubin (0.0-1.0) mg/dL AST (5-37) U/L ALT (0-40) U/L Alkaline Phosphatase (39-117) U/L Troponin I High Sens (<3.5-35.0) ng/L Total Protein (6.5-8.0) g/dL Albumin (3.5-5.0) g/dL COVID-19 ([facility]) Negative (Negative) COVID-19 Clin Com See Note Blood Type Antibody Screen 01/09/22 01/09/22 01/09/22 Range/Units 11:41 11:41 12:43 WBC (4.8-10.8) X10*3/uL RBC (4.60-5.80) X10*6/uL Hgb (14.0-18.0) g/dl Hct (42.0-52.0) % MCV (80.0-98.0) fL MCH (27.0-33.0) pg MCHC (31.0-36.0) g/dl RDW (11.0-16.0) % Plt Count (160-400) X10*3/uL MPV (9.4-12.4) fL Immature Gran % (Auto) (0.0-0.4) % Neut % (Auto) (45-73) % Lymph % (Auto) (20-40) % Love % (Auto) (2-11) % Eos % (Auto) (0-4) % Baso % (Auto) (0-2) % Lymph # (Auto) (1.2-4.9) X10*3/uL Love # (Auto) (0.1-1.2) X10*3/uL Eos # (Auto) (0.0-0.4) X10*3/uL Baso # (Auto) (0.0-0.2) X10*3/uL Abs Immat Gran (auto) (0.00-0.03) X10*3/uL Absolute Neuts (auto) (2.0-8.3) x10*3/uL Absolute Nucleated RBC (0.0-0.012) X10*3/uL Nucleated RBC % (auto) (0.0-0.2) /100WBC PT (10.0-13.1) SEC INR (0.9-1.1) Sodium 137 (135-145) mmol/L Potassium 4.8 (3.3-5.1) mmol/L Chloride 107 (96-108) mmol/L Carbon Dioxide 18 L (22-29) mmol/L Anion Gap 17 (12-20) BUN 19 H (9-16) mg/dL Creatinine 1.28 (0.5-1.4) mg/dL Estim Creat Clear Calc 50.1 Estimated GFR 55 Random Glucose 123 H (60-115) mg/dL Calcium 8.7 D (8.4-10.2) mg/dL Total Bilirubin 0.7 (0.0-1.0) mg/dL AST 19 (5-37) U/L ALT 19 (0-40) U/L Alkaline Phosphatase 68 D (39-117) U/L Troponin I High Sens 5.4 (<3.5-35.0) ng/L Total Protein 5.9 L (6.5-8.0) g/dL Albumin 3.9 (3.5-5.0) g/dL COVID-19 ([facility]) (Negative) COVID-19 Clin Com Blood Type B Positive Antibody Screen NEGATIVE Discharge Plan Discharge Clinical Impression: Acute GI bleeding Patient Disposition: Home, Self-Care Instructions: Rectal Bleeding (ED) Additional Instructions: have clear fluid today advanced as tolerated Report the ER emergently if recurrence of the rectal bleed Proctofoam suppository as prescribed Follow-up with mine supervisor Prescriptions: New Proctofoam HC 1-1 % foam 1 appl AR BID PRN (Reason: hemorrhoids) Qty: 10 0RF No Action quetiapine 100 mg tablet 100 mg PO BEDTIME Qty: 90 3RF paroxetine HCl 40 mg tablet 40 mg PO QAM 90 Days Qty: 90 1RF ropinirole 3 mg tablet 3 mg PO BEDTIME 90 Days Qty: 90 1RF mirtazapine 30 mg tablet 30 mg PO BEDTIME 90 Days Qty: 90 1RF lisinopril 20 mg tablet 20 mg PO DAILY Qty: 90 1RF oxycodone 10 mg tablet 10 mg PO BID 30 Days Qty: 60 0RF rosuvastatin 40 mg tablet 40 mg PO DAILY Qty: 30 3RF hydroxyzine HCl 50 mg tablet 50 mg PO TID PRN (Reason: anxiety) 30 Days Qty: 90 1RF diazepam 5 mg tablet 5 mg PO BID PRN (Reason: anxiety) 7 Days Qty: 14 0RF clopidogrel 75 mg tablet 75 mg PO DAILY docusate sodium [Colace] 100 mg capsule 100 mg PO BEDTIME 30 Days Qty: 30 6RF
[2022-01-09] MEDS: iohexoL 350 MG/ML 100 ML INFUS..BTL IV (13:38)
--- NOTE | 2022-01-09 16:03 | PC.NURSE ---
pt a&ox3, vss - hypertensive, pt denies any dizziness on standing, orthostats complete, pt ambulating independently, denies pain, would like to go home, medications being prepared by pharmacy.
[2022-01-09] MEDS: Pramoxine HCl 1 % Rectal Foam 15 GM 1 APPL PR (16:25)
[2022-01-09] MEDS: Tranexamic Acid 1,000 MG in 0.9 % Sodium Chloride 50 ML 360 MG IV (16:26)
--- NOTE | 2022-01-09 16:31 | PC.NURSE ---
medicated per provider order, no new orders at this time.
== END 2022-01-09 17:22 | disposition home or self-care (01) ==
PROVIDERS: Emergency Provider Internal Medicine; PCP Internal Medicine
DX: K92.2 Gastrointestinal hemorrhage, unspecified (principal); Z20.822 Contact with and (suspected) exposure to COVID-19; I10 Essential (primary) hypertension; E78.00 Pure hypercholesterolemia, unspecified; Z85.46 Personal history of malignant neoplasm of prostate; Z79.899 Other long term (current) drug therapy; Z79.02 Long term (current) use of antithrombotics/antiplatelets; Z87.891 Personal history of nicotine dependence
CPT/HCPCS: 74178; 80053; 84484; 85025; 85610; 86850; 86900; 86901; 87635; 93005; 96361; 96365; 99284; 99285; Q9967

== ENCOUNTER 2022-02-25 14:40 | Outpatient (REF) | payer MEDICARE, SELFPAY ==
--- NOTE | ~2022-02-25 | US_ITS ---
EXAMINATION: US EXTRACRANIAL CAROTID DUPLEX, BILATERAL CLINICAL INFORMATION: Carotid stenosis. History of left ICA stenting 2014 and right ICA stenting 2013 COMPARISON: 09/03/2014. TECHNIQUE: Real-time ultrasound and Doppler techniques (integrating B-mode 2-D vascular images, Doppler spectral analysis and color-flow Doppler imaging) were utilized to interrogate the extracranial carotid arteries, the vertebral arteries and proximal subclavian arteries bilaterally. The degree of stenosis is determined by criteria similar to NASCET. FINDINGS:. Right Side: 1. There is a stent across the bifurcation/proximal ICA. The stent appears patent on grayscale and color Doppler imaging. 2. The common carotid artery PSV proximally is 80 cm/s and distally 69 cm/s. 3. The proximal internal carotid artery velocities are 114 cm/s systolic and 48 cm/s diastolic. 4. The proximal external carotid artery PSV is 413 cm/s. 5. The vertebral artery shows antegrade flow. 6. The subclavian artery waveforms are normal. Left Side: 1. There is a stent across the bifurcation/proximal ICA. The stent appears patent on grayscale and color Doppler imaging. 2. The common carotid artery PSV proximally is 95 cm/s and distally 80 cm/s. 3. The proximal internal carotid artery velocities are 169 cm/s systolic and 56 cm/s diastolic. 4. The proximal external carotid artery PSV is 279 cm/s. 5. The vertebral artery shows antegrade flow. 6. The subclavian artery velocity is mildly elevated. US/US carotid duplex BI IMPRESSION: 1. RIGHT: Stent across the carotid bulb/proximal ICA with normal velocities. No evidence of hemodynamically significant in-stent stenosis. 2. LEFT: Stent across the carotid bulb/proximal ICA with elevated velocity in the distal aspect of the stent possibly representing a near 50% stenosis.
== END 2022-02-25 14:41 | disposition home or self-care (01) ==
LOC: HO.US 14:40
PROVIDERS: Visit Provider Internal Medicine
DX: I65.23 Occlusion and stenosis of bilateral carotid arteries (principal)
CPT/HCPCS: 93880

== ENCOUNTER 2022-04-14 07:22 | Outpatient (REF) | payer MEDICARE, SELFPAY ==
[2022-04-14 07:26] LABS: MANUAL DIFF FLAG NO
[2022-04-14 08:16] LABS: Basophils Absolute Auto 0.1 X10*3/uL (0.0-0.2); Basophils Percent Auto 0.5 % (0-2); Eosinophils Absolute Auto 0.1 X10*3/uL (0.0-0.4); Eosinophils Percent Auto 1.3 % (0-4); Hematocrit 51.3 % (42.0-52.0); Hemoglobin 16.7 g/dl (14.0-18.0); Imm Gran Abs Auto 0.03 X10*3/uL (0.00-0.03); Imm Gran Pct Auto 0.3 % (0.0-0.4); Lymphocytes Absolute Auto 1.5 X10*3/uL (1.2-4.9); Lymphocytes Percent Auto 15.8 % (20-40); Mean Corpuscular HGB Conc 32.6 g/dl (31.0-36.0); Mean Corpuscular Hemoglobin 28.8 pg (27.0-33.0); Mean Corpuscular Volume 88.6 fL (80.0-98.0); Mean Platelet Volume 10.1 fL (9.4-12.4); Monocytes Absolute Auto 0.7 X10*3/uL (0.1-1.2); Monocytes Percent Auto 7.7 % (2-11); Neutrophils Absolute Auto 6.9 x10*3/uL (2.0-8.3); Neutrophils Percent Auto 74.4 % (45-73); Platelet Count 236 X10*3/uL (160-400); Red Blood Count 5.79 X10*6/uL (4.60-5.80); Red Cell Distribution Width 13.8 % (11.0-16.0); White Blood Count 9.2 X10*3/uL (4.8-10.8)
[2022-04-14 08:26] LABS: Appearance Urine Clear; Color Urine Yellow; Glucose Urine UA Negative (Negative); Leukocyte Esterase Urine Negative (Negative); Nitrite Urine Negative (Negative); Urine Blood Negative (Negative); Urine Ketones Trace mg/dL (Negative); Urine Protein Negative (Neg-Trace)
[2022-04-14 08:52] LABS: Alanine Aminotransferase 20 U/L (0-40); Albumin Level 5.2 g/dL (3.5-5.0); Alkaline Phosphatase 97 U/L (39-117); Anion Gap 16 (12-20); Aspartate Amino Transferase 21 U/L (5-37); Blood Urea Nitrogen 20 mg/dL (9-16); Carbon Dioxide 24 mmol/L (22-29); Chloride 102 mmol/L (96-108); Cholesterol 138 mg/dL; Estimated Glomerular Filt Rate 50; Glucose Fasting 103 mg/dL (60-99); HDL Cholesterol 46 mg/dL; LDL Cholesterol Calculated 56 mg/dl; Potassium 4.5 mmol/L (3.3-5.1); Sodium 137 mmol/L (135-145); Total Protein 7.6 g/dL (6.5-8.0); Triglycerides 183 mg/dL
[2022-04-14 11:29] LABS: Bilirubin Total 0.7 mg/dL (0.0-1.0)
== END 2022-04-14 07:23 | disposition home or self-care (01) ==
LOC: HO.LAB 07:22
PROVIDERS: PCP Internal Medicine; Visit Provider Internal Medicine
DX: I10 Essential (primary) hypertension (principal); E78.00 Pure hypercholesterolemia, unspecified
CPT/HCPCS: 36415; 80053; 80061; 81003; 85025

== ENCOUNTER 2022-10-20 06:08 | Outpatient (REF) | payer MEDICARE, SELFPAY ==
[2022-10-20 06:24] LABS: MANUAL DIFF FLAG NO
[2022-10-20 07:12] LABS: Basophils Percent Auto 0.5 % (0-2); Eosinophils Absolute Auto 0.2 X10*3/uL (0.0-0.4); Eosinophils Percent Auto 3.4 % (0-4); Hematocrit 47.9 % (42.0-52.0); Imm Gran Abs Auto 0.02 X10*3/uL (0.00-0.03); Imm Gran Pct Auto 0.3 % (0.0-0.4); Lymphocytes Absolute Auto 1.4 X10*3/uL (1.2-4.9); Lymphocytes Percent Auto 24.6 % (20-40); Mean Corpuscular HGB Conc 33.4 g/dl (31.0-36.0); Mean Corpuscular Hemoglobin 33.1 pg (27.0-33.0); Mean Platelet Volume 9.9 fL (9.4-12.4); Monocytes Absolute Auto 0.5 X10*3/uL (0.1-1.2); Monocytes Percent Auto 9.1 % (2-11); Neutrophils Absolute Auto 3.6 x10*3/uL (2.0-8.3); Neutrophils Percent Auto 62.1 % (45-73); Platelet Count 167 X10*3/uL (160-400); Red Blood Count 4.84 X10*6/uL (4.60-5.80); White Blood Count 5.8 X10*3/uL (4.8-10.8)
[2022-10-20 07:22] LABS: Appearance Urine Clear; Color Urine Yellow; Glucose Urine UA Negative (Negative); Leukocyte Esterase Urine Negative (Negative); Nitrite Urine Negative (Negative); Specific Gravity - Urine 1.025 (1.005-1.025); UMIC TRIGGER UACC YES; Urine Blood Trace (Negative); Urine Ketones Trace mg/dL (Negative); Urine Protein 100 (2+) mg/dL (Neg-Trace)
[2022-10-20 07:28] LABS: Bacteria Urine None Seen (None Seen); Hyaline Casts Urine 0-2 /LPF (0-2); Squamous Epithelial Cell Urine 0-2 /HPF (0-2); WBC Urine 0-5 /HPF (0-5)
[2022-10-20 07:44] LABS: Alanine Aminotransferase 17 U/L (0-40); Albumin Level 4.4 g/dL (3.5-5.0); Alkaline Phosphatase 94 U/L (39-117); Anion Gap 15 (12-20); Aspartate Amino Transferase 18 U/L (5-37); Bilirubin Total 0.7 mg/dL (0.0-1.0); Blood Urea Nitrogen 17 mg/dL (9-16); Calcium 9.7 mg/dL (8.4-10.2); Carbon Dioxide 27 mmol/L (22-29); Chloride 107 mmol/L (96-108); Cholesterol 126 mg/dL; Estimated Glomerular Filt Rate > 60; Glucose Fasting 106 mg/dL (60-99); HDL Cholesterol 51 mg/dL; LDL Cholesterol Calculated 40 mg/dl; Potassium 4.5 mmol/L (3.3-5.1); Sodium 144 mmol/L (135-145); Triglycerides 178 mg/dL
[2022-10-20 08:32] LABS: Estimated Average Glucose 103 mg/dL; Hemoglobin A1c % 5.2 %
== END 2022-10-20 06:09 | disposition home or self-care (01) ==
LOC: HO.LAB 06:08
PROVIDERS: PCP Internal Medicine; Visit Provider Internal Medicine
DX: I10 Essential (primary) hypertension (principal); E78.00 Pure hypercholesterolemia, unspecified; R73.01 Impaired fasting glucose
CPT/HCPCS: 36415; 80053; 80061; 81001; 83036; 85025

== ENCOUNTER 2022-10-20 09:37 | Outpatient (AMB) | payer MEDICARE, SELFPAY ==
[2022-10-20 09:40] VITALS: BP 118/82; PULSE 95; O2SAT 96; BMI 20.2
--- NOTE | 2022-10-20 09:40 | MHC.PC.OV ---
Vital Signs 10/20/22 09:40 Height 6 ft 1 in Weight 153 lb 8 oz BMI 20.2 BP 118/82 Blood Pressure Location Lt brachial Position Sitting Pulse 95 Pulse Source Pulse Oximeter Pulse Oximetry (%) 96 Oxygen Delivery Method Room Air Intake Visit Reasons: Follow Up Mounting Inspector Required: No Accompanied by: Self / Same As Patient Allergies zolpidem Adverse Reaction (Unknown, Verified 07/05/23 04:09) sleepwalking Medication List - Last Reconciled 10/20/22 by Jayy Foster MD clopidogrel 75 mg PO DAILY diazepam 5 mg PO DAILY PRN 30 days docusate sodium (Colace) 100 mg PO BEDTIME 30 days hydrocortisone-pramoxine 1-1 % (Proctofoam HC) 1 appl [place] BID PRN hydroxyzine HCl 50 mg PO TID PRN 30 days lisinopril 20 mg PO DAILY mirtazapine 30 mg PO BEDTIME 90 days paroxetine HCl 40 mg PO QAM 90 days polyethylene glycol 3350 (Miralax) 17 grams PO DAILY 30 days quetiapine 100 mg PO BEDTIME ropinirole 3 mg PO BEDTIME 90 days rosuvastatin 40 mg PO DAILY zolpidem 10 mg PO BEDTIME PRN 30 days Tobacco use date assessed: 10/20/22 Fall risk assessment: No Falls in past year Dental Screening Dental Screen Date: 10/20/22 Did you have a dental visit in the last 12 months?: No Did you have a dental problem in the last 6 months where you did not have access to dental care?: No Was dental information given to patient?: No HPI Follow Up HPI Details Patient comes in today for his follow up visit States that he continues to experience increased anxiety - feels that this has gotten a lot worse lately despite his current Rx States that he sometimes feel like he is going to jump out of himself in panic and has hardly been getting any sleep at night lately, which he feels is making his anxiety a lot worse He denies any headaches or dizziness Denies any chest pains, no SOB No nausea/vomiting, no abdominal pain No change in bowel habits noted - still has frequent loose stools / diarrhea due to his radiation proctitis Had his follow up labs done earlier this morning - to discuss his results [facility] Medical History Anal discharge Depression Anxiety Prostate cancer Restless legs syndrome Epilepsy 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 Degenerative disc disease, cervical Impaired fasting glucose Pure hypercholesterolemia Bilateral carotid artery stenosis Benign essential hypertension Surgical History Hx of colonoscopy History of common carotid artery stent placement H/O radical prostatectomy History of inguinal hernia repair Family History Father Cancer Mother Chronic mental illness Son In good health Daughter In good health Social History Household Members: Children and Other Housing: House Do you presently have visiting nurse or other home services: No Alcohol intake: never Patient Tobacco Use Status: Former Tobacco user Quit Date: quit 7 yrs ago Tobacco use type: Cigarette e-Cigarette/Vaping Use: Never Used Second Hand Smoke Exposure: No Substance Use Type: Marijuana Advance Directives Date on File: 12/08/22 service: No Current occupational status: retired Cognitive needs: No Hearing needs: No Vision needs: Yes Questionnaire PHQ-9 Over the last 2 weeks, how often have you been bothered by any of the following problems? 1. Little interest or pleasure in doing things: several days 2. Feeling down, depressed, or hopeless: several days 3. Trouble falling or staying asleep, or sleeping too much: several days 4. Feeling tired or having little energy: several days 5. Poor appetite or overeating: several days 6. Feeling bad about yourself - or that you are a failure or have let yourself or your family down: not at all 7. Trouble concentrating on things, such as reading the newspaper or watching television: not at all 8. Moving or speaking so slowly that other people could have noticed. Or the opposite - being so fidgety or restless that you have been moving around a lot more than usual: not at all 9. Thoughts that you would be better off or of hurting yourself in some way: not at all Total score: 5 Depression Screening Interpretation: Positive Depression Screening Follow-up: Existing condition and In treatment 38197 - PHQ-9 Billing: Yes Source: Developed by Drs. Rory Porter, Phil Cannon and colleagues, with an educational maria c from [employer]. Thrive Questionnaire Date Thrive assessed: 10/20/22 I am a: Patient What is your living situation today?: I have a steady place to live Within the past 12 months, did the food you bought not last and you didn't have the money to get more?: Never true Within the past 12 months, did you worry whether your food would run out before you got money to buy more?: Never true Do you have trouble paying for medicines?: No Do you have trouble getting transportation to medical appointments?: No Do you have trouble paying your heating and electricity bill?: No Do you have trouble taking care of your child, family member or friend?: No Do you have trouble with day-to-day activities such as bathing, preparing meals, shopping, managing finances, etc.?: No Are you currently unemployed and looking for a job?: No Are you interested in more education?: No Currently or been in a relationship where the following occur: no concerns reported AUDIT C Alcohol Use Questionnaire (AUDIT-C) 1. How often do you have a drink containing alcohol?: Never 3. How often do you have six or more drinks on one occasion?: Never Total Score: 0 Score Reviewed/Action Taken: Yes ELISA-7 AMB Questionnaire ELISA-7 Date ELISA - 7 assessed: 10/20/22 Feeling nervous, anxious, or on edge: 3 = Nearly every day Not being able to stop or control worryin = Nearly every day Worrying too much about different things: 3 = Nearly every day Trouble relaxin = Nearly every day Being so restless that it is hard to sit still: 3 = Nearly every day Becoming easily annoyed or irritable: 3 = Nearly every day Feeling afraid as if something awful might happen: 3 = Nearly every day Total ELISA-7 score (0-4 normal; 5-9 mild; 10-14 moderate; 15-21 severe): 21 Source: Developed by Drs. Rory Porter, Phil Cannon and colleagues, with an educational maria c from [employer]. Review of Systems Const Reports difficulty sleeping, Reports fatigue, Denies fever(s) and Denies headache(s) ENT Denies dysphagia, Denies dizziness, Denies otalgia, Denies headache(s), Reports neck pain (chronic) and Denies sore throat Card Denies chest pain, Denies palpitations and Denies dyspnea Resp Denies cough, Denies dyspnea and Denies wheezing GI Denies abdominal pain, Denies constipation, Denies dysphagia, Denies heartburn, Reports diarrhea (recurrent), Reports loose stools, Denies nausea and Denies vomiting Denies dysuria, Denies nocturia and Denies urinary frequency Musc Reports neck pain (chronic) Neuro Denies dizziness and Denies headache(s) Psych Reports anxiety (increasing), Reports depression and Reports irritability Endo Reports fatigue and Denies palpitations Aller/Immun Denies wheezing Physical exam (Primary Care) Vital Signs: Last Vital Signs Pulse 95 10/20/22 09:40 BP 118/82 10/20/22 09:40 Pulse Ox 96 10/20/22 09:40 Oxygen Delivery Method Room Air 10/20/22 09:40 BMI result Body Mass Index 20.2 Tobacco/Smoking Status: Tobacco use Status Tobacco use date assessed 10/20/22 10/20/22 09:49 Patient Tobacco Use Status Former Tobacco user 10/20/22 09:49 Tobacco use type Cigarette 10/20/22 09:49 e-Cigarette/Vaping Use Never Used 10/20/22 09:49 PHQ-9: PHQ-9 Score PHQ-9: Total score 5 10/20/22 10:24 Depression Screening Interpretation: Positive Depression Screening Follow-up: Existing condition and In treatment Thrive Assessment: Date of Thrive Assessment Date Thrive assessed 10/20/22 10/20/22 09:49 Currently or been in a relationship where the following occur: no concerns reported Const General: no acute distress and alert HENMT Ears: TM's normal bilaterally and EAC's normal Throat: Yes posterior oropharynx normal and Yes tonsils normal Neck Neck: Yes no lymphadenopathy and Yes supple Thyroid: Thyroid normal Resp Auscultation: clear to auscultation bilaterally, no rales and no wheezes Cardio Rate: regular rate Rhythm: regular rhythm Heart sounds: no murmurs GI Palpation (GI): Soft to palpation and nontender Auscultation: normal bowel sounds General: Yes no CVA tenderness Back/Spine/Pelvis Back: no CVA tenderness Cervical Spine: Cervical spine tenderness (chronic) Skin Rashes: no rashes Extrem General: Yes no clubbing, cyanosis or edema Results Reviewed Results Reviewed: Laboratory Tests 10/20/22 10/20/22 10/20/22 06:20 06:20 06:23 WBC 5.8 Hgb 16.0 Hct 47.9 Plt Count 167 D Sodium 144 Potassium 4.5 Creatinine 1.19 Estimated GFR > 60 Fasting Glucose 106 H Hemoglobin A1c % 5.2 Calcium 9.7 AST 18 ALT 17 Triglycerides 178 Cholesterol LDL Cholesterol, Calc HDL Cholesterol Ur Specific [place] 1.025 Urine Protein 100 (2+) H Urine Glucose (UA) Negative Urine Blood Trace H Urine Nitrite Negative Ur Leukocyte Esterase Negative 10/20/22 06:23 WBC Hgb Hct Plt Count Sodium Potassium Creatinine Estimated GFR Fasting Glucose Hemoglobin A1c % Calcium AST ALT Triglycerides Cholesterol 126 LDL Cholesterol, Calc 40 HDL Cholesterol 51 Ur Specific [place] Urine Protein Urine Glucose (UA) Urine Blood Urine Nitrite Ur Leukocyte Esterase Assessment and Plan Assessment & Plan (1) Pure hypercholesterolemia: Code(s): E78.00 - Pure hypercholesterolemia, unspecified Plan: Results of his labs done earlier this morning reviewed and discussed with patient Reinforced low cholesterol diet Continue Rosuvastatin 40 mg QD Will recheck his labs and fasting lipids in 3 months for follow up (2) Benign essential hypertension: Code(s): I10 - Essential (primary) hypertension Plan: Reinforced low sodium diet - goal is systolic BP of at least 130 mm or less Continue Lisinopril 20 mg QD (3) Impaired fasting glucose: Code(s): R73.01 - Impaired fasting glucose Plan: HgbA1c remains normal and unchanged at 5.2% on his labs earlier this morning; HgbA1c was also at 5.2% a few months ago Reinforced low calorie diet/exercise as tolerated (4) Bilateral carotid artery stenosis: Comment: S/P bilateral carotid stenting with Dr. Almazan Code(s): I65.23 - Occlusion and stenosis of bilateral carotid arteries Plan: Was following up with vascular surgery regularly before but has not been back to see them since 2019 Repeat carotid US done a few months ago revealed (+) stent across the RIGHT carotid bulb/proximal ICA with normal velocities. No evidence of hemodynamically significant in-stent stenosis; (+) stent across the LEFT carotid bulb/proximal ICA with elevated velocity in the distal aspect of the stent possibly representing a near 50% stenosis. Due to his frequent rectal bleeding, we had him stop taking his Clopidogrel a few months ago but advised that as he's had carotid stenting done years ago, he should continue on low dose Aspirin 81 mg QD indefinitely Patient eventually went back on Clopidogrel as he reportedly did not notice any improvement in his symptoms even after he was off Clopidogrel for a few weeks (5) Degenerative disc disease, cervical: Code(s): M50.30 - Other cervical disc degeneration, unspecified cervical region Plan: Reinforced activity and weight-lifting restrictions to avoid aggravating his neck pain Used to take Oxycodone for pain but he has stopped taking them a few months ago and now uses CBD oil, which he feels work just as well (6) Radiation colitis: Comment: S/P colonoscopy in 05/2012 and on 12/11/2021 - due for repeat in 2 to 3 years Code(s): K52.0 - Gastroenteritis and colitis due to radiation Plan: Was started on a trial of bile salt binders in the past to help slow down his diarrhea but patient could not fill Rx due to cost, as the Rx is not covered by his insurance; patient has also tried OTC Imodium in the past with no improvement of symptoms Patient recently had a POSITIVE COLOGUARD test result and was subsequently referred to GI for colonoscopy Colonoscopy done on 12/11/2021 revealed (+) polyp that was a tubular adenoma on pathology, rectal ulceration, radiation proctitis (RAVE) and severe diverticular disease Has been advised not to strain as much as possible during BM, which patient has been doing due to constipation - was advised to come off his opioid Rx as this was most likely the biggest contributor to his constipation and his constipation has improved significantly since he stopped taking Oxycodone last year Follow up with GI as scheduled (7) Constipation: Code(s): K59.00 - Constipation, unspecified Qualifiers: Constipation type: unspecified constipation type Qualified Code(s): K59.00 - Constipation, unspecified Plan: Encouraged to increased his oral fluids and dietary fiber intake daily Continue Miralax 17 gm QD - he is reminded again to take this daily for it to work effectively Continue Colace 100 mg Q HS PRN (8) Epilepsy: Comment: no seizures since 2014 Code(s): G40.909 - Epilepsy, unspecified, not intractable, without status epilepticus Qualifiers: Epilepsy type: unspecified Intractability: not intractable Status epilepticus: without status epilepticus Qualified Code(s): G40.909 - Epilepsy, unspecified, not intractable, without status epilepticus Plan: Stable - follow up with neurology as scheduled (9) Restless legs syndrome: Code(s): G25.81 - Restless legs syndrome Plan: Continue Ropinirole 3 mg Q HS (10) Prostate cancer: Comment: S/P radiation Tx and hormonal Tx with Bicalutamide x 2.5 years Code(s): C61 - Malignant neoplasm of prostate Plan: Follow up with urology as scheduled PSA was normal when last checked a few months ago (11) Insomnia: Code(s): G47.00 - Insomnia, unspecified Qualifiers: Insomnia type: unspecified Qualified Code(s): G47.00 - Insomnia, unspecified Plan: Sleep hygiene reinforced Continue Zolpidem 10 mg Q HS PRN (12) Anxiety: Code(s): F41.9 - Anxiety disorder, unspecified Plan: Will increase his Paroxetine to 60 mg QD; continue Hydroxyzine 50 mg TID PRN He was start additionally on Buspirone 7.5 mg BID at his last visit but he felt that this was not working and self-discontinued the medication after a few weeks Will also STOP his Diazepam and switch him over to Alprazolam 1 mg BID PRN (13) Depression: Code(s): F32.9 - Major depressive disorder, single episode, unspecified Qualifiers: Depression Type: major depressive disorder Major depression recurrence: recurrent Active/Remission status: currently active Major depression episode severity: unspecified Qualified Code(s): F33.9 - Major depressive disorder, recurrent, unspecified Plan: Continue Quetiapine 100 mg Q HS and Mirtazapine 30 mg Q HS He will also have his Paroxetine increased today to 60 mg QD Plan To return as scheduled in December 2023 for his annual physical examination Orders: Orders TSH reflex Free T4 01/04/23 E78.00 - Pure hypercholesterolemia, unspecified Complete Blood Count Auto Diff 01/04/23 I10 - Essential (primary) hypertension Lipid Panel 01/04/23 E78.00 - Pure hypercholesterolemia, unspecified Comprehensive [place]. Panel Fast 01/04/23 E78.00 - Pure hypercholesterolemia, unspecified UA CC w/rflx Micro + Cult 01/04/23 R30.0 - Dysuria Vitamin D 25-OH Total 01/04/23 E55.9 - Vitamin D deficiency, unspecified Medications: New alprazolam 1 mg PO BID PRN 60 tabs 0RF anxiety 30 days F41.9 - Anxiety disorder, unspecified Changed From paroxetine HCl 40 mg PO QAM 90 days 90 tabs 1RF To paroxetine HCl 60 mg (2 x 30 mg) PO QAM 180 tabs 1RF 90 days Discontinued diazepam Discontinued Reason: Doctor's Order 5 mg PO DAILY 30 days PRN 30 tabs 0RF anxiety Coding Level of Care Code Est Pt Level 4 (90555) Diagnoses Pure hypercholesterolemia E78.00 Benign essential hypertension I10 Impaired fasting glucose R73.01 Bilateral carotid artery stenosis I65.23 Degenerative disc disease, cervical M50.30 Radiation colitis K52.0 Constipation, unspecified constipation type K59.00 Constipation type: unspecified constipation type Nonintractable epilepsy without status epilepticus, unspecified epilepsy type G40.909 Epilepsy type: unspecified Intractability: not intractable Status epilepticus: without status epilepticus Restless legs syndrome G25.81 Prostate cancer C61 Insomnia, unspecified type G47.00 Insomnia type: unspecified Anxiety F41.9 Episode of recurrent major depressive disorder, unspecified depression episode severity F33.9 Depression Type: major depressive disorder Major depression recurrence: recurrent Active/Remission status: currently active Major depression episode severity: unspecified
== END 2022-10-20 10:37 | disposition home or self-care (01) ==
PROVIDERS: Visit Provider Internal Medicine
DX: I10 Essential (primary) hypertension (principal); G40.909 Epilepsy, unspecified, not intractable, without status epilepticus; C61 Malignant neoplasm of prostate; F33.9 Major depressive disorder, recurrent, unspecified; E78.00 Pure hypercholesterolemia, unspecified; R73.01 Impaired fasting glucose; I65.23 Occlusion and stenosis of bilateral carotid arteries; M50.30 Other cervical disc degeneration, unspecified cervical region; K52.0 Gastroenteritis and colitis due to radiation; K59.00 Constipation, unspecified; G25.81 Restless legs syndrome; G47.00 Insomnia, unspecified
CPT/HCPCS: 99214

== ENCOUNTER 2022-12-01 13:07 | Inpatient (IN) | payer MEDICARE, SELFPAY ==
[2022-12-01] VITALS (11 sets, daily range): BP systolic 79–139; BP diastolic 48–81; PULSE 63–91; RESP 20–30; TEMP 35.9–37.1; O2SAT 95–99; BMI 21.3
--- NOTE | ~2022-12-01 | XR_ITS ---
EXAMINATION: XR CHEST CLINICAL INFORMATION: Chest pain, shortness of breath. COMPARISON: None available. TECHNIQUE: Frontal view of the chest was obtained. FINDINGS: No significant abnormality is noted involving the heart, lungs, mediastinum, bony thorax or soft tissues. XR/XR chest 1V IMPRESSION: No acute cardiopulmonary process.
--- NOTE | ~2022-12-01 | CT_ITS ---
EXAMINATION: CT ABDOMEN AND PELVIS WITHOUT CONTRAST CLINICAL INFORMATION: Abdominal pain, diarrhea, rectal bleeding. COMPARISON: CT scan of the abdomen and pelvis dated 08/12/2018. TECHNIQUE: Multidetector volumetric imaging was performed from the superior aspect of the liver through the pubic symphysis. Sagittal and coronal reformatted images were obtained on the technologist's workstation. Lack of intravenous and oral contrast limits visceral evaluation. This CT examination was performed using dose optimization techniques as appropriate, variously including the following: *Automated exposure control *Adjustment of mA and/or kV according to patient size (this includes techniques or standardized protocols for targeted exams where dose is matched to indication/reason for exam; i.e. extremities or head) *Use of iterative reconstruction technique DLP: 600.41 mGy-cm FINDINGS: LUNG BASES: Mild centrilobular emphysema at the lung bases with mild bibasilar atelectasis/scarring. No pleural or pericardial effusions. LIVER, GALLBLADDER, AND BILIARY TREE: Unremarkable. PANCREAS: A 0.2 cm calculus is seen in the region of the confluence of the common bile duct and pancreatic duct near the ampulla (image 33, series 14) without significant change. SPLEEN: Unremarkable. ADRENAL GLANDS: Unremarkable. KIDNEYS AND URETERS: There is a punctate nonobstructive calculus in the lower pole the left kidney. No significant right renal abnormality. BLADDER: Unremarkable. GASTROINTESTINAL TRACT: The stomach and small bowel are unremarkable. No evidence for acute appendicitis. The colon again shows scattered mild mural thickening extending to the rectum without surrounding infiltrative changes. Mild diverticulosis is seen distally. ABDOMINAL WALL: No significant hernia is appreciated. LYMPH NODES: No lymphadenopathy. VASCULAR: Moderate to severe atherosclerosis most pronounced in the infrarenal aortic segment without significant aneurysmal dilatation. PELVIC VISCERA: Postsurgical changes in the prostatic bed without associated abnormality. OSSEOUS STRUCTURES: Mild degenerative disc disease at L2-L3. No suspicious abnormality. CT/CT abdomen pelvis wo IV con IMPRESSION: 1. Scattered diffuse mild colonic and rectal mural thickening without surrounding infiltrative changes is nonspecific, but appears increased from the 2021 study. Given the patient's symptoms, this could represent sequelae of possible subacute colitis. Developing acute colitis would be less likely. If symptoms persist or worsen, short-term repeat CT follow-up is recommended as clinically indicated to assess for more acute change. 2. Other incidental findings detailed above without significant interval change.
--- NOTE | ~2022-12-01 | CT_ITS ---
EXAMINATION: CT HEAD WITHOUT CONTRAST CLINICAL INFORMATION: Status post fall with head injury, on blood thinners, rule out intracranial abnormality. COMPARISON: MRA of the head dated 06/27/2015. TECHNIQUE: Contiguous axial imaging was performed from the skull base to vertex without intravenous administration of contrast. Coronal and sagittal reformatted images were obtained. This CT examination was performed using dose optimization techniques as appropriate, variously including the following: *Automated exposure control *Adjustment of mA and/or kV according to patient size (this includes techniques or standardized protocols for targeted exams where dose is matched to indication/reason for exam; i.e. extremities or head) *Use of iterative reconstruction technique DLP: 687.04 mGy-cm FINDINGS: There is mild widening of the cortical sulci and associated ventriculomegaly. The lateral ventricles are symmetrical. The third and fourth ventricles are in their normal midline position. The basilar and prepontine cisterns are unremarkable. The neurovascular channel seen in the insular cortex extending towards the basal ganglia. Mild periventricular microvascular changes. There is no acute intra or extracerebral abnormality. There is no mass effect or midline shift. Sections through the bony calvarium are unremarkable. The orbits are intact. The paranasal sinuses are clear. The mastoid air cells are clear. CT/CT head/brain wo IV con IMPRESSION: No acute intracranial pathology.
--- NOTE | 2022-12-01 13:16 | ECG_ITS ---
Test Reason : CHEST PAIN Blood Pressure : / mmHG Vent. Rate : 083 BPM Atrial Rate : 083 BPM P-R Int : 166 ms QRS Dur : 078 ms QT Int : 382 ms P-R-T Axes : 081 024 089 degrees QTc Int : 448 ms Normal sinus rhythm ST & T wave abnormality, consider anterolateral ischemia Abnormal ECG When compared with ECG of 09-JAN-2022 11:41, QRS axis Shifted right ST now depressed in Anterior leads T wave inversion more evident in Anterior leads Referred By: Generic ED Physician Electronically Signed By:Venkatesh Marroquin
--- NOTE | 2022-12-01 13:23 | ED.CHESTPAIN ---
HPI - Chest Pain General Chief Complaint: Chest Pain Stated Complaint: SOB, CHEST PAIN, WEAKNESS Time Seen by Provider: 12/01/22 13:18 History of Present Illness HPI narrative: 72-year-old male who presents emergency department for evaluation of multiple complaints. The patient states that over the past 2 days he has had intermittent chest pain, multiple episodes per day. He points to his sternum when asked to localize the pain. The pain is a sharp pain which is worse with movement and with breathing. Pain is 6/10 at its worst. He states that he is feeling short of breath and very weak. He states he has been drinking fluid over the past several days but he lost his appetite. He states that he has had multiple falls, at least 12 times over the past 2 days. He states that he has struck his head on some of these falls but has not lost consciousness. He states that on Wednesday, 3 days prior, he did notice bloody stools but since then he has been having frequent, brown loose, diarrheal stools. He complains of a constant, diffuse, cramping abdominal pain. Patient states the last drank alcohol 3 weeks prior. He he had subjective fever and chills at home. He has had rhinorrhea. He denied sore throat or cough. He denied frequency, urgency or dysuria. Patient presented on to for lower rectal bleeding, his past medical history was listed as prostate cancer status post radiation proctitis had colonoscopy on 12/11 which showed and anorectal junction shallow ulceration 10-12 mm with surrounding edema and induration without any active bleeding with severe diverticulosis comes here for rectal bleed. His H&H at that time was stable he was discharged home. Related Data Previous Rx's Medication Instructions Recorded hydroxyzine HCl 50 mg tablet 50 mg PO TID PRN anxiety 30 days 10/20/21 #90 tabs docusate sodium 100 mg capsule 100 mg PO BEDTIME 30 days #30 caps 12/25/21 (Colace) hydrocortisone 1 %-pramoxine 1 % 1 appl ME BID PRN hemorrhoids #10 01/13/22 rectal foam (Proctofoam HC) grams polyethylene glycol 3350 17 17 g PO DAILY 30 days #510 grams 01/13/22 gram/dose oral powder (Miralax) quetiapine 100 mg tablet 100 mg PO BEDTIME #90 tabs 01/23/22 clopidogrel 75 mg tablet 75 mg PO DAILY #90 tabs 05/16/22 zolpidem 10 mg tablet 10 mg PO BEDTIME PRN insomnia 30 07/15/22 days #30 tabs lisinopril 20 mg tablet 20 mg PO DAILY #90 tabs 09/12/22 mirtazapine 30 mg tablet 30 mg PO BEDTIME 90 days #90 tabs 09/17/22 paroxetine HCl 30 mg tablet 60 mg PO QAM 90 days #180 tabs 10/20/22 rosuvastatin 40 mg tablet 40 mg PO DAILY #100 tabs 10/21/22 bisacodyl 5 mg tablet,delayed 20 mg PO ONCE 1 day #4 tabs 10/31/22 release (Dulcolax (bisacodyl)) peg-electrolyte solution 420 gram 240 ml PO Q10M #4,000 mL 10/31/22 oral solution alprazolam 1 mg tablet 1 mg PO BID PRN anxiety 30 days 11/17/22 #60 tabs ropinirole 3 mg tablet 3 mg PO BEDTIME 90 days #90 tabs 11/18/22 Allergies Allergy/AdvReac Type Severity Reaction Status Date / Time zolpidem AdvReac Unknown sleepwalkin Verified 10/20/22 10:21 g Review of Systems Review of Systems: Yes all other systems are reviewed and are negative [facility] Past Medical History [facility] Narrative: Social history: He denies tobacco use. He denies alcohol use. He states that he smokes marijuana daily. Medical History Anal discharge Anxiety Basilar artery aneurysm Benign essential hypertension Bilateral carotid artery stenosis Cerebellar hemorrhage Degenerative disc disease, cervical Depression Epilepsy Impaired fasting glucose Prostate cancer Pure hypercholesterolemia Radiation colitis Restless legs syndrome Surgical History H/O radical prostatectomy History of common carotid artery stent placement History of inguinal hernia repair Hx of colonoscopy Family History Family History Father Cancer Mother Chronic mental illness Son In good health Daughter In good health Social History Social History Housing: House Alcohol intake: current Alcohol intake frequency: does not drink Patient Tobacco Use Status: Former Tobacco user Quit Date: quit 7 yrs ago Tobacco use type: Cigarette Smoked in Last 30 Days: No e-Cigarette/Vaping Use: Never Used Second Hand Smoke Exposure: No Use of substances other than those prescribed or required for medical reasons: Yes Substance Use Type: Marijuana Advance Directives: No Advance Directives Information Provided: Yes service: No Current occupational status: retired Cognitive needs: No Hearing needs: No Vision needs: Yes Physical Exam Vital Signs: Vital Signs: Last Vital Signs Temp 97.6 F 12/01/22 16:13 Pulse 81 12/01/22 16:13 Resp 25 H 12/01/22 16:13 BP 103/65 12/01/22 16:13 Pulse Ox 98 12/01/22 16:10 O2 Del Method Room Air 12/01/22 16:10 BMI result Body Mass Index 21.3 Vital signs revealed hypotension with a be P of 70 over 50, normal heart rate of 87, elevated respiratory rate of 25. General: Awake, alert male patient, appears weak, pleasant, cooperative, answers questions appropriately, very pale skin Head: Normocephalic, atraumatic EENT: PERRL, Lids normal, sclera normal, conjunctiva normal, nose normal , ears normal, throat without erythema or exudates Neck: Supple, no adenopathy, trachea midline and nontender Lung: breath sounds symmetric, no wheezing, rales or rhonchi Chest: symmetric movement, nontender Heart: regular rate and rhythm, normal S1, S2 no murmurs or rubs Abdomen: soft, moderate RUQ tenderness, mild epigastric tender, nondistended, normal bowel sounds. Rectal exam, small external skin tag, patient had brown stool which was strongly Hemoccult positive, patient had significant tenderness with insertion of the finger into his rectal area, I did not feel any rectal masses on my exam Back: no vertebral tenderness, no CVAT Extremities: no deformities, moves all extremities symmetrically Skin: no rashes, no lesion, normal color and warmth Neuro: Awake, alert, oriented, normal speech, cranial nerves intact, moves all extremities symmetrically Psych: Pleasant, cooperative Medications Administered Discontinued Medications Generic Name Dose Route Start Last Admin Trade Name Freq PRN Reason Stop Dose Admin Sodium Chloride 1,000 mls @ 999 mls/hr 12/01/22 13:19 12/01/22 15:33 Ns IV 12/01/22 14:19 Infused .Q1H1M STA Infusion Sodium Chloride 100 mls @ 100 mls/hr 12/01/22 14:45 12/01/22 15:58 Ns IV 12/01/22 15:44 100 mls/hr ONCE ONE Administration Medical Decision Making Medical Decision Making MDM Narrative: 72-year-old male with a history of hypertension, hyperlipidemia, diverticulosis, prostate cancer with radiation proctitis, seizures who presents emergency department for evaluation of chest pain, weakness, loose brown stools, loss of appetite, shortness of breath x2 days with bright red blood per rectum 3 days prior. Patient has had multiple falls secondary to his weakness and did have several head injuries but is uncertain if he had loss of consciousness. Vital signs revealed low blood pressure with normal heart rate. Patient abdominal exam did reveal right upper quadrant and epigastric tenderness. Rectal exam revealed rectal tenderness, brown stool which was strongly Hemoccult positive. I ordered the following evaluation on the patient: CBC, CMP, lipase, lactic acid, BNP, troponin, PT/INR, PTT, urine drug screen, blood cultures x2, urinalysis, urine drug screen, 12 EKG, CT scan of the head without contrast, CT scan of the abdomen pelvis with IV contrast and chest x-ray one view. Patient was ordered to get normal saline x1 L. 1447: Laboratory evaluation did reveal elevated WBCs 11,200 with a low H&H of 10 and 32. This was compared to an H&H of 16 and 47 from 10/20/2022-a I suspect that this represents an acute drop in his H&H and may be the cause of his hypotension therefore I ordered 1 unit of packed red blood cells to be transfused. Patient's BUN creatinine were elevated 47 and 1.93-this could be secondary to volume depletion/acute kidney injury or secondary to a GI bleed. Troponin was also elevated at 44.7, repeat is due at 16:55. Lactic acid was normal 1.8. Chest x-ray was unremarkable with no evidence of pneumonia. 1657: Patient's CT scan of the brain revealed no acute fracture bleed CT scan of the abdomen pelvis revealed no acute findings to explain the patient's abdominal pain or Hemoccult-positive stool. Patient's blood pressure has improved with the IV fluids and blood transfusion. I will discuss admission for acute GI bleed with the covering hospitalist 1744: I did discuss the patient with Dr. Carty and the patient will be admitted for further management. Patient's repeat high sensitivity troponin I was 40.0 which did not meet the criteria for a 50% change suggesting that he did not have myocardial injury is the cause of weakness and falls. Differential Diagnosis Differential Diagnoses: The differential diagnosis associated with the presentation includes Differential diagnosis includes but is not limited to myocardial infarction, myocardial ischemia, anemia, electrolyte abnormality, volume depletion, dehydration, malnutrition, GI bleed Admission/Observation Consideration of admission/observation: Escalation of care including admission/observation considered Consult Healthcare Provider Management of the patient was discussed with: Hospitalist Lab Data MDM Lab Attestation statement: I reviewed the patient's lab results. My independent interpretation patient's laboratory evaluation is as follows: Elevated WBC 69605. Anemia with an H&H of 10 and 32-compared to an H&H of 16 and 47 on 10/20/2022. Elevated BUN creatinine 46 and 1.93-compared to BUN creatinine of 17 and 1.19 from 10/20/2022. Patient's chloride was elevated 109 and bicarb was low at 21. High sensitive troponin I was elevated at 44.7 repeat is due at 16:55. LFTs were normal. Lipase was normal. COVID-19 was negative. Hemoccult stool was positive and confirms my bedside test. Lactic acid was normal at 1.8. 12/01/22 13:55 12/01/22 13:55 Labs: Lab Results 12/01/22 12/01/22 12/01/22 Range/Units 13:37 13:55 13:55 WBC 11.2 H (4.8-10.8) X10*3/uL RBC 3.31 L D (4.60-5.80) X10*6/uL Hgb 10.9 L D (14.0-18.0) g/dl Hct 32.2 L D (42.0-52.0) % MCV 97.3 (80.0-98.0) fL MCH 32.9 (27.0-33.0) pg MCHC 33.9 (31.0-36.0) g/dl RDW 12.7 (11.0-16.0) % Plt Count 234 D (160-400) X10*3/uL MPV 9.1 L (9.4-12.4) fL Immature Gran % (Auto) 0.6 H (0.0-0.4) % Neut % (Auto) 79.0 H (45-73) % Lymph % (Auto) 14.0 L (20-40) % [place] % (Auto) 5.1 (2-11) % Eos % (Auto) 0.9 (0-4) % Baso % (Auto) 0.4 (0-2) % Lymph # (Auto) 1.6 (1.2-4.9) X10*3/uL [place] # (Auto) 0.6 (0.1-1.2) X10*3/uL Eos # (Auto) 0.1 (0.0-0.4) X10*3/uL Baso # (Auto) 0.0 (0.0-0.2) X10*3/uL Abs Immat Gran (auto) 0.07 H (0.00-0.03) X10*3/uL Absolute Neuts (auto) 8.8 H (2.0-8.3) x10*3/uL Absolute Nucleated RBC 0.000 (0.0-0.012) X10*3/uL Nucleated RBC % (auto) 0.0 (0.0-0.2) /100WBC PT (11.1-13.3) SEC INR (0.9-1.1) APTT (26.0-36.4) SEC Sodium 138 (135-145) mmol/L Potassium 4.9 (3.3-5.1) mmol/L Chloride 109 H (96-108) mmol/L Carbon Dioxide 21 L (22-29) mmol/L Anion Gap 13 (12-20) BUN 46 H (9-16) mg/dL Creatinine 1.93 H (0.5-1.4) mg/dL Estim Creat Clear Calc 33.3 Estimated GFR 34 Random Glucose 86 (60-115) mg/dL Lactic Acid (0.5-2.0) mmol/L Calcium 8.9 D (8.4-10.2) mg/dL Total Bilirubin 0.7 (0.0-1.0) mg/dL AST 13 (5-37) U/L ALT 17 (0-40) U/L Alkaline Phosphatase 80 (39-117) U/L Troponin I High Sens (<3.5-35.0) ng/L B-Natriuretic Peptide (<100) pg/mL Total Protein 5.9 L (6.5-8.0) g/dL Albumin 3.5 (3.5-5.0) g/dL Lipase 32 (8-78) U/L Urine Color Urine Appearance Urine pH (5.0-9.0) Ur Specific [place] (1.005-1.025) Urine Protein (Neg-Trace) mg/dL Urine Glucose (UA) (Negative) mg/dL Urine Ketones (Negative) mg/dL Urine Blood (Negative) Urine Nitrite (Negative) Ur Leukocyte Esterase (Negative) Stool Occult Blood (NEGATIVE) Urine Opiates Screen (Not Detect) Urine Fentanyl Screen (Not Detect) Ur Barbiturates Screen (Not Detect) Ur Phencyclidine Scrn (Not Detect) Ur Amphetamines Screen (Not Detect) U Benzodiazepines Scrn (Not Detect) Urine Cocaine Screen (Not Detect) U Marijuana (THC) Screen (Not Detect) Ethyl Alcohol mg/dL COVID-19 ([facility]) Negative (Negative) COVID-19 Clin Com See Note Blood Type Antibody Screen Crossmatch 12/01/22 12/01/22 12/01/22 Range/Units 13:55 13:55 13:55 WBC (4.8-10.8) X10*3/uL RBC (4.60-5.80) X10*6/uL Hgb (14.0-18.0) g/dl Hct (42.0-52.0) % MCV (80.0-98.0) fL MCH (27.0-33.0) pg MCHC (31.0-36.0) g/dl RDW (11.0-16.0) % Plt Count (160-400) X10*3/uL MPV (9.4-12.4) fL Immature Gran % (Auto) (0.0-0.4) % Neut % (Auto) (45-73) % Lymph % (Auto) (20-40) % [place] % (Auto) (2-11) % Eos % (Auto) (0-4) % Baso % (Auto) (0-2) % Lymph # (Auto) (1.2-4.9) X10*3/uL [place] # (Auto) (0.1-1.2) X10*3/uL Eos # (Auto) (0.0-0.4) X10*3/uL Baso # (Auto) (0.0-0.2) X10*3/uL Abs Immat Gran (auto) (0.00-0.03) X10*3/uL Absolute Neuts (auto) (2.0-8.3) x10*3/uL Absolute Nucleated RBC (0.0-0.012) X10*3/uL Nucleated RBC % (auto) (0.0-0.2) /100WBC PT 11.3 (11.1-13.3) SEC INR 0.9 (0.9-1.1) APTT 26.5 (26.0-36.4) SEC Sodium (135-145) mmol/L Potassium (3.3-5.1) mmol/L Chloride (96-108) mmol/L Carbon Dioxide (22-29) mmol/L Anion Gap (12-20) BUN (9-16) mg/dL Creatinine (0.5-1.4) mg/dL Estim Creat Clear Calc Estimated GFR Random Glucose (60-115) mg/dL Lactic Acid 1.8 (0.5-2.0) mmol/L Calcium (8.4-10.2) mg/dL Total Bilirubin (0.0-1.0) mg/dL AST (5-37) U/L ALT (0-40) U/L Alkaline Phosphatase (39-117) U/L Troponin I High Sens (<3.5-35.0) ng/L B-Natriuretic Peptide 69 (<100) pg/mL Total Protein (6.5-8.0) g/dL Albumin (3.5-5.0) g/dL Lipase (8-78) U/L Urine Color Urine Appearance Urine pH (5.0-9.0) Ur Specific [place] (1.005-1.025) Urine Protein (Neg-Trace) mg/dL Urine Glucose (UA) (Negative) mg/dL Urine Ketones (Negative) mg/dL Urine Blood (Negative) Urine Nitrite (Negative) Ur Leukocyte Esterase (Negative) Stool Occult Blood (NEGATIVE) Urine Opiates Screen (Not Detect) Urine Fentanyl Screen (Not Detect) Ur Barbiturates Screen (Not Detect) Ur Phencyclidine Scrn (Not Detect) Ur Amphetamines Screen (Not Detect) U Benzodiazepines Scrn (Not Detect) Urine Cocaine Screen (Not Detect) U Marijuana (THC) Screen (Not Detect) Ethyl Alcohol mg/dL COVID-19 ([facility]) (Negative) COVID-19 Clin Com Blood Type Antibody Screen Crossmatch 12/01/22 12/01/22 12/01/22 Range/Units 13:55 13:55 13:55 WBC (4.8-10.8) X10*3/uL RBC (4.60-5.80) X10*6/uL Hgb (14.0-18.0) g/dl Hct (42.0-52.0) % MCV (80.0-98.0) fL MCH (27.0-33.0) pg MCHC (31.0-36.0) g/dl RDW (11.0-16.0) % Plt Count (160-400) X10*3/uL MPV (9.4-12.4) fL Immature Gran % (Auto) (0.0-0.4) % Neut % (Auto) (45-73) % Lymph % (Auto) (20-40) % [place] % (Auto) (2-11) % Eos % (Auto) (0-4) % Baso % (Auto) (0-2) % Lymph # (Auto) (1.2-4.9) X10*3/uL [place] # (Auto) (0.1-1.2) X10*3/uL Eos # (Auto) (0.0-0.4) X10*3/uL Baso # (Auto) (0.0-0.2) X10*3/uL Abs Immat Gran (auto) (0.00-0.03) X10*3/uL Absolute Neuts (auto) (2.0-8.3) x10*3/uL Absolute Nucleated RBC (0.0-0.012) X10*3/uL Nucleated RBC % (auto) (0.0-0.2) /100WBC PT (11.1-13.3) SEC INR (0.9-1.1) APTT (26.0-36.4) SEC Sodium (135-145) mmol/L Potassium (3.3-5.1) mmol/L Chloride (96-108) mmol/L Carbon Dioxide (22-29) mmol/L Anion Gap (12-20) BUN (9-16) mg/dL Creatinine (0.5-1.4) mg/dL Estim Creat Clear Calc Estimated GFR Random Glucose (60-115) mg/dL Lactic Acid (0.5-2.0) mmol/L Calcium (8.4-10.2) mg/dL Total Bilirubin (0.0-1.0) mg/dL AST (5-37) U/L ALT (0-40) U/L Alkaline Phosphatase (39-117) U/L Troponin I High Sens 44.7 H (<3.5-35.0) ng/L B-Natriuretic Peptide (<100) pg/mL Total Protein (6.5-8.0) g/dL Albumin (3.5-5.0) g/dL Lipase (8-78) U/L Urine Color Urine Appearance Urine pH (5.0-9.0) Ur Specific [place] (1.005-1.025) Urine Protein (Neg-Trace) mg/dL Urine Glucose (UA) (Negative) mg/dL Urine Ketones (Negative) mg/dL Urine Blood (Negative) Urine Nitrite (Negative) Ur Leukocyte Esterase (Negative) Stool Occult Blood (NEGATIVE) Urine Opiates Screen (Not Detect) Urine Fentanyl Screen (Not Detect) Ur Barbiturates Screen (Not Detect) Ur Phencyclidine Scrn (Not Detect) Ur Amphetamines Screen (Not Detect) U Benzodiazepines Scrn (Not Detect) Urine Cocaine Screen (Not Detect) U Marijuana (THC) Screen (Not Detect) Ethyl Alcohol < 10 mg/dL COVID-19 ([facility]) (Negative) COVID-19 Clin Com Blood Type B Positive Antibody Screen NEGATIVE Crossmatch See Detail 12/01/22 12/01/22 12/01/22 Range/Units 13:58 14:58 14:58 WBC (4.8-10.8) X10*3/uL RBC (4.60-5.80) X10*6/uL Hgb (14.0-18.0) g/dl Hct (42.0-52.0) % MCV (80.0-98.0) fL MCH (27.0-33.0) pg MCHC (31.0-36.0) g/dl RDW (11.0-16.0) % Plt Count (160-400) X10*3/uL MPV (9.4-12.4) fL Immature Gran % (Auto) (0.0-0.4) % Neut % (Auto) (45-73) % Lymph % (Auto) (20-40) % [place] % (Auto) (2-11) % Eos % (Auto) (0-4) % Baso % (Auto) (0-2) % Lymph # (Auto) (1.2-4.9) X10*3/uL [place] # (Auto) (0.1-1.2) X10*3/uL Eos # (Auto) (0.0-0.4) X10*3/uL Baso # (Auto) (0.0-0.2) X10*3/uL Abs Immat Gran (auto) (0.00-0.03) X10*3/uL Absolute Neuts (auto) (2.0-8.3) x10*3/uL Absolute Nucleated RBC (0.0-0.012) X10*3/uL Nucleated RBC % (auto) (0.0-0.2) /100WBC PT (11.1-13.3) SEC INR (0.9-1.1) APTT (26.0-36.4) SEC Sodium (135-145) mmol/L Potassium (3.3-5.1) mmol/L Chloride (96-108) mmol/L Carbon Dioxide (22-29) mmol/L Anion Gap (12-20) BUN (9-16) mg/dL Creatinine (0.5-1.4) mg/dL Estim Creat Clear Calc Estimated GFR Random Glucose (60-115) mg/dL Lactic Acid (0.5-2.0) mmol/L Calcium (8.4-10.2) mg/dL Total Bilirubin (0.0-1.0) mg/dL AST (5-37) U/L ALT (0-40) U/L Alkaline Phosphatase (39-117) U/L Troponin I High Sens (<3.5-35.0) ng/L B-Natriuretic Peptide (<100) pg/mL Total Protein (6.5-8.0) g/dL Albumin (3.5-5.0) g/dL Lipase (8-78) U/L Urine Color Yellow Urine Appearance Clear Urine pH 6.5 (5.0-9.0) Ur Specific [place] <= 1.005 (1.005-1.025) Urine Protein Negative (Neg-Trace) mg/dL Urine Glucose (UA) Negative (Negative) mg/dL Urine Ketones Negative (Negative) mg/dL Urine Blood Negative (Negative) Urine Nitrite Negative (Negative) Ur Leukocyte Esterase Negative (Negative) Stool Occult Blood POSITIVE (NEGATIVE) Urine Opiates Screen Not Detected (Not Detect) Urine Fentanyl Screen Not Detected (Not Detect) Ur Barbiturates Screen Not Detected (Not Detect) Ur Phencyclidine Scrn Not Detected (Not Detect) Ur Amphetamines Screen Not Detected (Not Detect) U Benzodiazepines Scrn POSITIVE H (Not Detect) Urine Cocaine Screen Not Detected (Not Detect) U Marijuana (THC) Screen POSITIVE H (Not Detect) Ethyl Alcohol mg/dL COVID-19 ([facility]) (Negative) COVID-19 Clin Com Blood Type Antibody Screen Crossmatch 12/01/22 Range/Units 17:03 WBC (4.8-10.8) X10*3/uL RBC (4.60-5.80) X10*6/uL Hgb (14.0-18.0) g/dl Hct (42.0-52.0) % MCV (80.0-98.0) fL MCH (27.0-33.0) pg MCHC (31.0-36.0) g/dl RDW (11.0-16.0) % Plt Count (160-400) X10*3/uL MPV (9.4-12.4) fL Immature Gran % (Auto) (0.0-0.4) % Neut % (Auto) (45-73) % Lymph % (Auto) (20-40) % [place] % (Auto) (2-11) % Eos % (Auto) (0-4) % Baso % (Auto) (0-2) % Lymph # (Auto) (1.2-4.9) X10*3/uL [place] # (Auto) (0.1-1.2) X10*3/uL Eos # (Auto) (0.0-0.4) X10*3/uL Baso # (Auto) (0.0-0.2) X10*3/uL Abs Immat Gran (auto) (0.00-0.03) X10*3/uL Absolute Neuts (auto) (2.0-8.3) x10*3/uL Absolute Nucleated RBC (0.0-0.012) X10*3/uL Nucleated RBC % (auto) (0.0-0.2) /100WBC PT (11.1-13.3) SEC INR (0.9-1.1) APTT (26.0-36.4) SEC Sodium (135-145) mmol/L Potassium (3.3-5.1) mmol/L Chloride (96-108) mmol/L Carbon Dioxide (22-29) mmol/L Anion Gap (12-20) BUN (9-16) mg/dL Creatinine (0.5-1.4) mg/dL Estim Creat Clear Calc Estimated GFR Random Glucose (60-115) mg/dL Lactic Acid (0.5-2.0) mmol/L Calcium (8.4-10.2) mg/dL Total Bilirubin (0.0-1.0) mg/dL AST (5-37) U/L ALT (0-40) U/L Alkaline Phosphatase (39-117) U/L Troponin I High Sens 40.0 H (<3.5-35.0) ng/L B-Natriuretic Peptide (<100) pg/mL Total Protein (6.5-8.0) g/dL Albumin (3.5-5.0) g/dL Lipase (8-78) U/L Urine Color Urine Appearance Urine pH (5.0-9.0) Ur Specific [place] (1.005-1.025) Urine Protein (Neg-Trace) mg/dL Urine Glucose (UA) (Negative) mg/dL Urine Ketones (Negative) mg/dL Urine Blood (Negative) Urine Nitrite (Negative) Ur Leukocyte Esterase (Negative) Stool Occult Blood (NEGATIVE) Urine Opiates Screen (Not Detect) Urine Fentanyl Screen (Not Detect) Ur Barbiturates Screen (Not Detect) Ur Phencyclidine Scrn (Not Detect) Ur Amphetamines Screen (Not Detect) U Benzodiazepines Scrn (Not Detect) Urine Cocaine Screen (Not Detect) U Marijuana (THC) Screen (Not Detect) Ethyl Alcohol mg/dL COVID-19 ([facility]) (Negative) COVID-19 Clin Com Blood Type Antibody Screen Crossmatch Independent Interpretation I performed an independent interpretation of an: EKG Interpretation: My independent interpretation the patient's 12 EKG is as follows, sinus rhythm with a rate of 83, normal ME interval, QRS duration QTC interval, no ST segment elevation, no ST segment depression inverted T-waves from V1 through V4, no PACs, no PVCs. Compared to EKG dated 01/09/2022 the T-wave inversions in V2 through V4 are new. Radiology Impression Discussion of test interpretation with radiology: I have reviewed the radiologist's reading. Radiologist Impression: XR chest 1V IMPRESSION: No acute cardiopulmonary process. Dictated By:Angel Wood MD CT head/brain wo IV con IMPRESSION: No acute intracranial pathology. Dictated By:Angel Wood MD CT abdomen pelvis wo IV con FINDINGS: LUNG BASES: Mild centrilobular emphysema at the lung bases with mild bibasilar atelectasis/scarring. No pleural or pericardial effusions. LIVER, GALLBLADDER, AND BILIARY TREE: Unremarkable. PANCREAS: A 0.2 cm calculus is seen in the region of the confluence of the common bile duct and pancreatic duct near the ampulla (image 33, series 14) without significant change. SPLEEN: Unremarkable. ADRENAL GLANDS: Unremarkable. KIDNEYS AND URETERS: There is a punctate nonobstructive calculus in the lower pole the left kidney. No significant right renal abnormality. BLADDER: Unremarkable. GASTROINTESTINAL TRACT: The stomach and small bowel are unremarkable. No evidence for acute appendicitis. The colon again shows scattered mild mural thickening extending to the rectum without surrounding infiltrative changes. Mild diverticulosis is seen distally. ABDOMINAL WALL: No significant hernia is appreciated. LYMPH NODES: No lymphadenopathy. VASCULAR: Moderate to severe atherosclerosis most pronounced in the infrarenal aortic segment without significant aneurysmal dilatation. PELVIC VISCERA: Postsurgical changes in the prostatic bed without associated abnormality. OSSEOUS STRUCTURES: Mild degenerative disc disease at L2-L3. No suspicious abnormality. CT/CT abdomen pelvis wo IV con IMPRESSION: 1. Scattered diffuse mild colonic and rectal mural thickening without surrounding infiltrative changes is nonspecific, but appears increased from the 2021 study. Given the patient's symptoms, this could represent sequelae of possible subacute colitis. Developing acute colitis would be less likely. If symptoms persist or worsen, short-term repeat CT follow-up is recommended as clinically indicated to assess for more acute change. 2. Other incidental findings detailed above without significant interval change. External Record Review External record reviewed: Inpatient record and Office record Chronic Conditions Patient?s care impacted by: Hypertension Critical Care Time Critical Care Time Critical Care Time: Yes Total Critical Care Time: 75 Attestation: Critical Care: The patient was critically ill with a high probability of imminent or life threatening deterioration. I spent greater than 30 minutes of discontinuous time evaluating the patient,delivering critical care at the bedside, discussing and evaluating pertinent data with consultants. Critical care time does not include time spent performing separately billable procedures or teaching. Total time spent performing critical care was 75 minutes. Discharge Plan Discharge Prescriptions: No Action quetiapine 100 mg tablet 100 mg PO BEDTIME Qty: 90 3RF clopidogrel 75 mg tablet 75 mg PO DAILY Qty: 90 3RF zolpidem 10 mg tablet 10 mg PO BEDTIME PRN (Reason: insomnia) 30 Days Qty: 30 1RF lisinopril 20 mg tablet 20 mg PO DAILY Qty: 90 1RF mirtazapine 30 mg tablet 30 mg PO BEDTIME 90 Days Qty: 90 1RF rosuvastatin 40 mg tablet 40 mg PO DAILY Qty: 100 2RF bisacodyl [Dulcolax (bisacodyl)] 5 mg tablet,delayed release (DR/EC) 20 mg PO ONCE 1 Days Qty: 4 0RF Rx Instructions: take at 6 pm day before colonoscopy peg-electrolyte soln 420 gram recon soln 240 ml PO Q10M Qty: 4000 0RF Rx Instructions: until fecal effluent is clear; to take day before colonoscopy alprazolam 1 mg tablet 1 mg PO BID PRN (Reason: anxiety) 30 Days Qty: 60 0RF ropinirole 3 mg tablet 3 mg PO BEDTIME 90 Days Qty: 90 1RF hydroxyzine HCl 50 mg tablet 50 mg PO TID PRN (Reason: anxiety) 30 Days Qty: 90 1RF paroxetine HCl 30 mg tablet 60 mg PO QAM 90 Days Qty: 180 1RF Proctofoam HC 1-1 % foam 1 appl ME BID PRN (Reason: hemorrhoids) Qty: 10 5RF polyethylene glycol 3350 [Miralax] 17 gram/dose powder 17 g PO DAILY 30 Days Qty: 510 11RF docusate sodium [Colace] 100 mg capsule 100 mg PO BEDTIME 30 Days Qty: 30 6RF
[2022-12-01] MEDS: 0.9 % Sodium Chloride 1,000 ML 999 ML IV (13:25)
[2022-12-01 14:07] LABS: MANUAL DIFF FLAG NO
[2022-12-01 14:08] LABS: Basophils Percent Auto 0.4 % (0-2); Eosinophils Absolute Auto 0.1 X10*3/uL (0.0-0.4); Eosinophils Percent Auto 0.9 % (0-4); Hematocrit 32.2 % (42.0-52.0); Hemoglobin 10.9 g/dl (14.0-18.0); Imm Gran Abs Auto 0.07 X10*3/uL (0.00-0.03); Imm Gran Pct Auto 0.6 % (0.0-0.4); Lymphocytes Absolute Auto 1.6 X10*3/uL (1.2-4.9); Mean Corpuscular HGB Conc 33.9 g/dl (31.0-36.0); Mean Corpuscular Hemoglobin 32.9 pg (27.0-33.0); Mean Corpuscular Volume 97.3 fL (80.0-98.0); Mean Platelet Volume 9.1 fL (9.4-12.4); Monocytes Absolute Auto 0.6 X10*3/uL (0.1-1.2); Monocytes Percent Auto 5.1 % (2-11); Neutrophils Absolute Auto 8.8 x10*3/uL (2.0-8.3); Platelet Count 234 X10*3/uL (160-400); Red Blood Count 3.31 X10*6/uL (4.60-5.80); Red Cell Distribution Width 12.7 % (11.0-16.0); White Blood Count 11.2 X10*3/uL (4.8-10.8)
[2022-12-01 14:11] LABS: OBS Int Ctl Valid YES; OBS1 POSITIVE (NEGATIVE)
[2022-12-01 14:12] LABS: COVID-19 Test Negative (Negative); IDNOW Serial# 08D9AD1C
[2022-12-01 14:22] LABS: Lactic Acid 1.8 mmol/L (0.5-2.0)
[2022-12-01 14:27] LABS: INTERNATIONAL NORM RATIO 0.9 (0.9-1.1); Prothrombin Time 11.3 SEC (11.1-13.3)
[2022-12-01 14:28] LABS: Alanine Aminotransferase 17 U/L (0-40); Albumin Level 3.5 g/dL (3.5-5.0); Alkaline Phosphatase 80 U/L (39-117); Anion Gap 13 (12-20); Aspartate Amino Transferase 13 U/L (5-37); Bilirubin Total 0.7 mg/dL (0.0-1.0); Blood Urea Nitrogen 46 mg/dL (9-16); Calcium 8.9 mg/dL (8.4-10.2); Carbon Dioxide 21 mmol/L (22-29); Chloride 109 mmol/L (96-108); Creatinine Clr Calc Pharmacy 33.3; Estimated Glomerular Filt Rate 34; Glucose Random 86 mg/dL (60-115); Lipase 32 U/L (8-78); Potassium 4.9 mmol/L (3.3-5.1); Sodium 138 mmol/L (135-145); Total Protein 5.9 g/dL (6.5-8.0)
[2022-12-01 14:29] LABS: Partial Thromboplastin Time 26.5 SEC (26.0-36.4)
[2022-12-01 14:32] LABS: B Type Natriuretic Peptide 69 pg/mL (<100)
[2022-12-01 14:33] LABS: Troponin-I High Sensitivity 44.7 ng/L (<3.5-35.0)
[2022-12-01 14:35] LABS: Ethanol < 10 mg/dL
[2022-12-01 15:07] LABS: Appearance Urine Clear; Color Urine Yellow; Glucose Urine UA Negative (Negative); Leukocyte Esterase Urine Negative (Negative); Nitrite Urine Negative (Negative); PH 6.5 (5.0-9.0); Specific Gravity - Urine <= 1.005 (1.005-1.025); Urine Blood Negative (Negative); Urine Ketones Negative (Negative); Urine Protein Negative (Neg-Trace)
[2022-12-01 15:23] LABS: Amphetamine Screen Urine Not Detected (Not Detect); Barbiturates, Urine Not Detected (Not Detect); Benzodiazepines Screen Urine POSITIVE (Not Detect); Cannabinoid Screen Urine POSITIVE (Not Detect); Cocaine Screen Urine Not Detected (Not Detect); Fentanyl, urine Not Detected (Not Detect); Opiate Screen Urine Not Detected (Not Detect); Phencyclidine Screen Urine Not Detected (Not Detect)
--- NOTE | 2022-12-01 17:54 | PHA.MEDREC ---
Pharmacy Consult ? Medication Reconciliation Pharmacy has completed the medication reconciliation. Patient stated he did not know his medications, then went to list them. Patient reports he takes paroxetine at night. Reported the one night he took 3 tablets of ambien (30 mg) because it was no working. Rashida Ferguson, PharmD
--- NOTE | 2022-12-01 18:28 | P.HPHOSP_ITS ---
History of Present Illness Date of Service: 12/01/22 Attending physician on admission: Alyssa Carty Chief Complaint: chest pain, falls, brbpr 72-year-old male with history of prostate cancer s/p prostatectomy and radiation therapy, history of radiation proctitis, hypercholesterolemia, coronary artery disease s/p PCI in 2015, hypertension, anxiety, epilepsy, carotid artery stenosis s/p bilateral carotid stenting, history cerebellar hemorrhage, and restless leg syndrome presented to the ED earlier today for evaluation of chest pain. He reports for last 3 days he has been experiencing exertional retrosternal chest pain which is also felt in the bilateral shoulders. There is associated dyspnea on exertion and lightheadedness. Reports the episodes would last for about 15-20 minutes before resolving spontaneously but felt they were worse today. He denies any chest pain at rest. He also tells me that over the last few days he has been experiencing copious watery diarrhea though did not experience any episodes today but has been passing gas. There has been lower abdominal pain and associated chills but no fevers. Denies any nausea or vomiting. He states Wednesday and Wednesday he had 4 episodes of large volume bright red blood per rectum but has not had any bleeding in the last 2 days. He states secondary to the lightheadedness he has had between 12-15 falls with head strike but no LOC. He takes plavix, but no anticoagulants. He is unsure if he has had recent seizure. No sick contacts. No recent abx use. No recent travel. Denies eating any known bad foods. Lives at home with his daughter. On arrival, pt hypotensive to 79/50 and tachypneic to 28. No tachycardia or hypoxia. He is asymptomatic on arrival. He has a mild leukocytosis of 11.2. H/H 10.9/32.2% (significant decrease from 10/20 with H/H 16.0/47.9%). Creat 1.93, BUN 46, electrolytes largely wnl. Initial troponin 44.7, repeat 40.0. BNP 69. Urinalysis negative. Stool occult blood positive and pt reports significant with rectal exam, otherwise denies rectal pain. Head CT negative for any acute intracranial pathology. Chest x-ray negative for any acute cardiopulmonary process. CT abdomen/pelvis shows scattered diffuse mild colonic and rectal mural thickening without any surrounding infiltrative changes being increased from prior studies possibly representing sequela of subacute colitis, developing acute colitis would be less likely. EKG showing NSR with t wave inversions in septal and anterior leads. In the ED, given 1 L IV NS bolus and then started on 1 L IV NS at 100 mL/hour. He was transfused 1 unit packed red blood cells given significant blood loss. Review of Systems Review of Systems: General: No fevers, malaise, unintentional weight loss. +general weakness, falls HEENT: No blurred vision, diplopia. No sore throat, nasal congestion, rhinorrhea, sinus pain, ear pain Cardiovascular: +chest pain, +lightheadedness. No palpitations, or leg edema Respiratory: +solis. No wheezing, cough GI: +abd pain, +diarrhea, +BRBPR. No nausea, vomiting, constipation, melena : No dysuria, hematuria, increased urinary frequency, decreased urinary output MSK: No myalgia, back pain Neuro: No headaches, weakness, paresthesias Skin: No rashes or lesions [facility] Medical History Anal discharge Anxiety Basilar artery aneurysm Benign essential hypertension Bilateral carotid artery stenosis Cerebellar hemorrhage Degenerative disc disease, cervical Depression Epilepsy Impaired fasting glucose Prostate cancer Pure hypercholesterolemia Radiation colitis Restless legs syndrome Family History Father Cancer Mother Chronic mental illness Son In good health Daughter In good health Surgical History H/O radical prostatectomy History of common carotid artery stent placement History of inguinal hernia repair Hx of colonoscopy Social History Household Members: Children and Other Housing: House Do you presently have visiting nurse or other home services: No Alcohol intake: current Alcohol intake frequency: does not drink Patient Tobacco Use Status: Former Tobacco user Quit Date: quit 7 yrs ago Tobacco use type: Cigarette Smoked in Last 30 Days: No e-Cigarette/Vaping Use: Never Used Second Hand Smoke Exposure: No Use of substances other than those prescribed or required for medical reasons: Yes Substance Use Type: Marijuana Last Used Substance: Days (ago) Currently Displaying Signs/Symptoms of Drug Intoxication Withdrawal: No Have you been hit, kicked, punched, or otherwise hurt by someone within the past year? If so, by whom?: No Advance Directives: No Advance Directives Information Provided: Yes Advance Directives on File: No Do you have thoughts of harming others: None Do you have a plan to hurt others: No Plan Recently lost weight without trying: No How much weight loss: 2-13 pounds Eating poorly because of decreased appetite: No Nutrition screen score: 1 Nutrition Risks: No Nutritional Risk service: No Current occupational status: retired Cognitive needs: No Hearing needs: No Vision needs: Yes Meds Allergies Allergy/AdvReac Type Severity Reaction Status Date / Time zolpidem AdvReac Unknown sleepwalkin Verified 10/20/22 10:21 g Active Medications: Current Medications Acetaminophen (Acetaminophen 325 Mg Tablet) 650 mg PO Q6H PRN PRN Reason: Pain, Mild (Pain Scale 1-3) Docusate Sodium (Docusate Sodium 100 Mg Capsule) 100 mg PO DAILY PRN PRN Reason: Constipation Ondansetron HCl (Ondansetron Hcl 4 Mg/2 Ml Vial) 4 mg IVPUSH Q8H PRN PRN Reason: Nausea and Vomiting Sodium Chloride (0.9 % Sodium Chloride Flush 3 Ml Syringe) 3 ml IVFLUSH [facility] Home Medications Medication Instructions Recorded Confirmed Last Taken Type alprazolam 1 mg tablet 1 mg PO BID 12/01/22 12/01/22 12/01/22 History cholecalciferol (vitamin D3) 25 25 mcg PO DAILY 12/01/22 12/01/22 12/01/22 History mcg (1,000 unit) tablet cyanocobalamin (vitamin B-12) 1,000 mcg PO DAILY 12/01/22 12/01/22 12/01/22 History 1,000 mcg tablet [id number]-tl-nawuy 300 mcg-K 60 1 tab PO DAILY 12/01/22 12/01/22 12/01/22 History mcg-lycop 600 mcg-lutein 300 mcg tablet (Centrum Silver Men) paroxetine HCl 30 mg tablet 60 mg PO BEDTIME 12/01/22 12/01/22 11/30/22 History zolpidem 10 mg tablet 10 mg PO BEDTIME 12/01/22 12/01/22 11/30/22 History Physical Exam Vital Signs and Narrative: Vital Signs: Last Vital Signs Temp 98.0 F 12/01/22 18:12 Pulse 86 12/01/22 18:12 Resp 30 H 12/01/22 18:12 BP 113/64 12/01/22 18:12 Pulse Ox 99 12/01/22 18:12 O2 Del Method Room Air 12/01/22 18:12 BMI result Body Mass Index 21.3 Constitutional - Awake and Alert, No apparent distress Eyes - PERRLA, EOMI Cardiovascular - S1S2, RRR, No edema Respiratory - Normal lung expansion, Normal respiratory effort, No respiratory distress, CTA bilaterally Gastrointestinal - rlq ttp without guarding or rebound. ND; +BS Extremities - no calf tenderness bilaterally, no swelling Skin - Warm/Dry Neurological - Alert & oriented x3 Psychological - Appropriate affect Results Labs 12/01/22 13:55 12/01/22 13:55 Labs: Laboratory Results - last 24 hr 12/01/22 12/01/22 12/01/22 13:37 13:55 13:55 MCV 97.3 MCH 32.9 MCHC 33.9 RDW 12.7 Plt Count 234 D MPV 9.1 L Immature Gran % (Auto) 0.6 H Neut % (Auto) 79.0 H Lymph % (Auto) 14.0 L [place] % (Auto) 5.1 Eos % (Auto) 0.9 Baso % (Auto) 0.4 Lymph # (Auto) 1.6 [place] # (Auto) 0.6 Eos # (Auto) 0.1 Baso # (Auto) 0.0 Abs Immat Gran (auto) 0.07 H Absolute Neuts (auto) 8.8 H Absolute Nucleated RBC 0.000 Nucleated RBC % (auto) 0.0 PT INR APTT Anion Gap 13 Estim Creat Clear Calc 33.3 Estimated GFR 34 Random Glucose 86 Lactic Acid Calcium 8.9 D Total Bilirubin 0.7 AST 13 ALT 17 Alkaline Phosphatase 80 B-Natriuretic Peptide Total Protein 5.9 L Albumin 3.5 Lipase 32 Urine Color Urine Appearance Urine pH Ur Specific [place] Urine Protein Urine Glucose (UA) Urine Ketones Urine Blood Urine Nitrite Ur Leukocyte Esterase Stool Occult Blood Urine Opiates Screen Urine Fentanyl Screen Ur Barbiturates Screen Ur Phencyclidine Scrn Ur Amphetamines Screen U Benzodiazepines Scrn Urine Cocaine Screen U Marijuana (THC) Screen Ethyl Alcohol COVID-19 ([facility]) Negative COVID-19 Clin Com See Note Blood Type Antibody Screen Crossmatch 12/01/22 12/01/22 12/01/22 13:55 13:55 13:55 MCV MCH MCHC RDW Plt Count MPV Immature Gran % (Auto) Neut % (Auto) Lymph % (Auto) [place] % (Auto) Eos % (Auto) Baso % (Auto) Lymph # (Auto) [place] # (Auto) Eos # (Auto) Baso # (Auto) Abs Immat Gran (auto) Absolute Neuts (auto) Absolute Nucleated RBC Nucleated RBC % (auto) PT 11.3 INR 0.9 APTT 26.5 Anion Gap Estim Creat Clear Calc Estimated GFR Random Glucose Lactic Acid 1.8 Calcium Total Bilirubin AST ALT Alkaline Phosphatase B-Natriuretic Peptide 69 Total Protein Albumin Lipase Urine Color Urine Appearance Urine pH Ur Specific [place] Urine Protein Urine Glucose (UA) Urine Ketones Urine Blood Urine Nitrite Ur Leukocyte Esterase Stool Occult Blood Urine Opiates Screen Urine Fentanyl Screen Ur Barbiturates Screen Ur Phencyclidine Scrn Ur Amphetamines Screen U Benzodiazepines Scrn Urine Cocaine Screen U Marijuana (THC) Screen Ethyl Alcohol COVID-19 ([facility]) COVID-19 Clin Com Blood Type Antibody Screen Crossmatch 12/01/22 12/01/22 12/01/22 13:55 13:55 13:58 MCV MCH MCHC RDW Plt Count MPV Immature Gran % (Auto) Neut % (Auto) Lymph % (Auto) [place] % (Auto) Eos % (Auto) Baso % (Auto) Lymph # (Auto) [place] # (Auto) Eos # (Auto) Baso # (Auto) Abs Immat Gran (auto) Absolute Neuts (auto) Absolute Nucleated RBC Nucleated RBC % (auto) PT INR APTT Anion Gap Estim Creat Clear Calc Estimated GFR Random Glucose Lactic Acid Calcium Total Bilirubin AST ALT Alkaline Phosphatase B-Natriuretic Peptide Total Protein Albumin Lipase Urine Color Urine Appearance Urine pH Ur Specific [place] Urine Protein Urine Glucose (UA) Urine Ketones Urine Blood Urine Nitrite Ur Leukocyte Esterase Stool Occult Blood POSITIVE Urine Opiates Screen Urine Fentanyl Screen Ur Barbiturates Screen Ur Phencyclidine Scrn Ur Amphetamines Screen U Benzodiazepines Scrn Urine Cocaine Screen U Marijuana (THC) Screen Ethyl Alcohol < 10 COVID-19 ([facility]) COVID-19 Clin Com Blood Type B Positive Antibody Screen NEGATIVE Crossmatch See Detail 12/01/22 12/01/22 14:58 14:58 MCV MCH MCHC RDW Plt Count MPV Immature Gran % (Auto) Neut % (Auto) Lymph % (Auto) [place] % (Auto) Eos % (Auto) Baso % (Auto) Lymph # (Auto) [place] # (Auto) Eos # (Auto) Baso # (Auto) Abs Immat Gran (auto) Absolute Neuts (auto) Absolute Nucleated RBC Nucleated RBC % (auto) PT INR APTT Anion Gap Estim Creat Clear Calc Estimated GFR Random Glucose Lactic Acid Calcium Total Bilirubin AST ALT Alkaline Phosphatase B-Natriuretic Peptide Total Protein Albumin Lipase Urine Color Yellow Urine Appearance Clear Urine pH 6.5 Ur Specific [place] <= 1.005 Urine Protein Negative Urine Glucose (UA) Negative Urine Ketones Negative Urine Blood Negative Urine Nitrite Negative Ur Leukocyte Esterase Negative Stool Occult Blood Urine Opiates Screen Not Detected Urine Fentanyl Screen Not Detected Ur Barbiturates Screen Not Detected Ur Phencyclidine Scrn Not Detected Ur Amphetamines Screen Not Detected U Benzodiazepines Scrn POSITIVE H Urine Cocaine Screen Not Detected U Marijuana (THC) Screen POSITIVE H Ethyl Alcohol COVID-19 ([facility]) COVID-19 Clin Com Blood Type Antibody Screen Crossmatch Imaging Radiologist's Impressions: Impressions Chest X-Ray 12/01/22 14:06 IMPRESSION: No acute cardiopulmonary process. Abdomen/Pelvis CT 12/01/22 15:37 IMPRESSION: 1. Scattered diffuse mild colonic and rectal mural thickening without surrounding infiltrative changes is nonspecific, but appears increased from the 2021 study. Given the patient's symptoms, this could represent sequelae of possible subacute colitis. Developing acute colitis would be less likely. If symptoms persist or worsen, short-term repeat CT follow-up is recommended as clinically indicated to assess for more acute change. 2. Other incidental findings detailed above without significant interval change. Head CT 12/01/22 15:37 IMPRESSION: No acute intracranial pathology. Assessment and Plan (1) Acute gastrointestinal bleeding: Status: Acute (2) Acute hypotension: Status: Acute (3) Colitis: Status: Acute (4) Acute anemia: Status: Acute (5) Multiple falls: Status: Acute (6) Elevated troponin I level: Status: Acute Plan 72-year-old male with history of prostate cancer s/p prostatectomy and radiation therapy, history of radiation proctitis, hypercholesterolemia, coronary artery disease s/p PCI in 2014, hypertension, anxiety, epilepsy, carotid artery stenosis s/p bilateral carotid stenting, history cerebellar hemorrhage, and restless leg syndrome to be admitted for symptomatic blood loss anemia secondary to colitis with demand ischemia. #Acute symptomatic blood loss anemia due to GI bleed -H/H 10.9/32.2% (significant decrease from 10/20 with H/H 16.0/47.9%) -GIven significant symptoms and end organ damage, tranfused 1 unit PRBC. Give 20mg IV lasix x 1 -Repeat H/H q6h -Monitor on telemetry #Subacute colitis with acute GI bleed -IV PPI -Transfused as above -CT abd/pelvis showing subacute colitis -GI panel/CDiff PCR ordered -Cover with flagyl and ceftriaxone empirically -Clear liquid diet -GI consult #Elevated troponins- likely demand ischemia in setting of acute blood loss -Initiatl trop 44, repeat 40 -EKG with t wave inversions anteroseptal leads -Currently asymptomatic, but exertional cp -Echo -Cardiology consult -monitor on telemetry #Acute kidney injury- likely r/t to blood loss -resuscitated with 2 L IVF and 1 unit packed red blood cells -avoid nephrotoxins -follow BMP # recurrent falls -likely related to generalized weakness and lightheadedness related to above -PT evaluation # hypertension -blood pressure is soft -hold antihypertensives for now # coronary artery disease -chest pain/elevated troponins as above -echo ordered, cardiology consult -continue statin, hold Plavix #Epilepsy -not on anti epileptics #Mood disorder -continue home meds DVT prophylaxis- SCPs Full code Pt requires inpt stay at least 2 midnights for management of acute blood loss anemia 2/2 gi bleed with demand ischemia requiring blood transfusion, IV abx, close monitoring of blood counts and cardiac function, and expert consultation Time Spent With Patient Time: Total time managing care of this patient today ____ minutes. Quality Stroke Does the patient have a stroke diagnosis?: No VTE Prior VTE?: No VTE Risk Level:: Medical - moderate - high VTE Device Contraindication: N/A - Device Ordered VTE Drug Contraindication: Treatment Not Indicated
[2022-12-01] MEDS: Furosemide 20 MG/2 ML VIAL IVPUSH (19:20)
[2022-12-01] MEDS: cefTRIAXone sodium 1 GM in 0.9 % Sodium Chloride 50 ML IV (19:20)
[2022-12-01 20:00] LABS: Hemoglobin 11.9 g/dl (14.0-18.0)
[2022-12-01] MEDS: ALPRAZolam 0.5 MG TABLET 1 MG PO (21:31)
[2022-12-01] MEDS: metroNIDAZOLE/NS 500 MG/100 ML PIGGYBACK 100 MG IV (21:31)
[2022-12-01] MEDS: rOPINIRole HCL 1 MG TABLET 3 MG PO (21:32)
[2022-12-01] MEDS: Zolpidem Tartrate 5 MG TABLET PO (21:32)
[2022-12-01] MEDS: PARoxetine HCL 30 MG TABLET 60 MG PO (21:33)
[2022-12-01] MEDS: QUEtiapine Fumarate 100 MG TABLET PO (21:33)
[2022-12-01] MEDS: Mirtazapine 30 MG TABLET PO (21:33)
[2022-12-02] VITALS (7 sets, daily range): BP systolic 100–136; BP diastolic 61–80; PULSE 76–93; RESP 16–20; TEMP 36.2–37.1; O2SAT 93–98
--- NOTE | 2022-12-02 | ECG_ITS ---
Test Reason : chest pain Blood Pressure : / mmHG Vent. Rate : 102 BPM Atrial Rate : 102 BPM P-R Int : 166 ms QRS Dur : 084 ms QT Int : 354 ms P-R-T Axes : 085 018 092 degrees QTc Int : [address] & T wave abnormality, consider anterolateral ischemia Abnormal ECG When compared with ECG of 01-DEC-2022 13:22, Inverted T waves have replaced nonspecific T wave abnormality in Lateral leads Referred By: Alyssa Carty Electronically Signed By:Venkatesh Marroquin
[2022-12-02] MEDS: 0.9 % Sodium Chloride Flush 3 ML SYRINGE IVFLUSH ×4 (00:42→20:31)
[2022-12-02] MEDS: Pantoprazole Sodium 40 MG/10 ML VIAL IVPUSH ×2 (05:31→18:06)
--- NOTE | 2022-12-02 07:00 | CA_ITS ---
Transthoracic Echocardiogram Patient (Last, First, Middle): Irwin Clark, Gender: Male Date of : 1950 Age: 72 Procedure Date: 12/02/2022 Procedure Type: Transthoracic Echocardiogram Location: [facility] [place] Height: 177.8 cm Weight: 67.13 kg BSA: 1.84 m2 Heart Rate: bpm BP: 134 / 75 mmHg Reclamation Supervisor: Referring MD: [place] OCONNELL Symptoms: elevated trops, chest pain Study Quality: Fair Conclusions: - Normal left ventricular size, thickness, and systolic function. The visually estimated ejection fraction is between 65-70%. - Normal right ventricular cavity size and systolic function. Findings Left Ventricle Normal left ventricular size, thickness, and systolic function. The visually estimated ejection fraction is between 65-70%. There is no evidence of regional wall motion abnormalities. Diastolic function is normal for age. Right Ventricle Normal right ventricular cavity size and systolic function. Atria The left atrium is normal in size. Aortic Valve Normal aortic valve structure and function. There is no aortic valve stenosis. There is no aortic valve regurgitation. Mitral Valve The mitral valve appears normal. There is no mitral valve regurgitation. There is no mitral valve stenosis. Tricuspid Valve Normal tricuspid valve structure and function. Tricuspid regurgitation envelope is inadequate for calculation of right ventricular systolic pressure. Normal right atrial pressure. Great Vessels All visible segments of the aorta are normal in size. Venous The inferior vena cava is normal in size and collapses greater than 50% with inspiration. Pericardium/Pleural Prominent epicardial adipose tissue noted. There is no evidence of pericardial effusion. Prior Study Comparison No prior study available for comparison. Measurements 2D Linear Measurements IVSd: 1.00 0.6-0.9/0.6-1.0 cm LVIDd: 3.60 3.9-5.3/4.2-5.9 cm LVIDd Index: 1.96 2.4-3.2/2.2-3.1 cm/m2 LVIDs: 2.30 2.0-3.6 cm LVPWd: 1.00 0.7-1.1 cm Ao Root: 3.20 2.1-3.5 cm LA Diam: 2.40 2.7-3.8/3.0-4.0 cm LAIDs Index: 1.30 1.5-2.3 cm/m2 LV Mass: 134.12 67-162/88-224 g LV Mass Index: 72.89 43-95/49-115 g/m2 LVOT Diam: 2.00 3.0+(-)1.3 cm Mitral Valve MV Pk E: 0.52 MV PK A: 0.75 MV Decel Time: 130.00 E/A: 0.70 E'Lateral: 9.90 E'Medial: 5.77 E/E' Med: 9.00 E/E' Lat: 5.30 PHT: 38.00 MVA PHT: 5.79 Decel Jewell: 4.01 Aortic Valve AoV Pk Fidencio: 1.30 AoV Mn Fidencio: 0.79 AoV VTI: 0.19 AoV Pk Grad: 7.00 Aov Mn Grad: 3.00 LVOT LVOT Diam: 2.00 LVOT Area: 3.14 Diastolic Function MV Pk E: 0.52 MV Pk A: 0.75 E/A: 0.70 E'Medial: 5.77 E/E' Med: 9.00 E' Laterial: 9.90 E/E' Lat: 5.30 Right Ventricle TAPSE (mm): 19.80 TVS' Fidencio: 11.70 Tricuspid Valve TR Pk Fidencio: 2.11 TR Pk Grad: 18.00 Great Vessels Aorta Ao Root-2D: 3.20 2.0-3.7 cm Ao Asc: 3.40 2.1-3.4 cm Pulmonary Valve PV Pk Fidencio: 1.05 Peak PV Grad: 4.00 Updated in Other Vendor System with Status of Final Venkatesh Marroquin MD electronically signed on 12/02/2022 9:20:30 PM with status of Final
[2022-12-02 07:29] LABS: MANUAL DIFF FLAG NO
[2022-12-02 07:34] LABS: Basophils Percent Auto 0.4 % (0-2); Eosinophils Absolute Auto 0.1 X10*3/uL (0.0-0.4); Eosinophils Percent Auto 1.7 % (0-4); Hematocrit 39.7 % (42.0-52.0); Hemoglobin 13.2 g/dl (14.0-18.0); Imm Gran Abs Auto 0.06 X10*3/uL (0.00-0.03); Imm Gran Pct Auto 0.7 % (0.0-0.4); Lymphocytes Absolute Auto 1.1 X10*3/uL (1.2-4.9); Lymphocytes Percent Auto 13.2 % (20-40); Mean Corpuscular HGB Conc 33.2 g/dl (31.0-36.0); Mean Corpuscular Hemoglobin 32.4 pg (27.0-33.0); Mean Corpuscular Volume 97.3 fL (80.0-98.0); Mean Platelet Volume 9.2 fL (9.4-12.4); Monocytes Absolute Auto 0.5 X10*3/uL (0.1-1.2); Monocytes Percent Auto 6.3 % (2-11); Neutrophils Absolute Auto 6.6 x10*3/uL (2.0-8.3); Neutrophils Percent Auto 77.7 % (45-73); Platelet Count 204 X10*3/uL (160-400); Red Blood Count 4.08 X10*6/uL (4.60-5.80); Red Cell Distribution Width 14.3 % (11.0-16.0); White Blood Count 8.5 X10*3/uL (4.8-10.8)
[2022-12-02 07:46] LABS: Anion Gap 14 (12-20); Blood Urea Nitrogen 39 mg/dL (9-16); Calcium 9.4 mg/dL (8.4-10.2); Carbon Dioxide 23 mmol/L (22-29); Chloride 110 mmol/L (96-108); Creatinine Clr Calc Pharmacy 37.4; Estimated Glomerular Filt Rate 39; Glucose Random 116 mg/dL (60-115); Potassium 4.8 mmol/L (3.3-5.1); Sodium 142 mmol/L (135-145)
--- NOTE | 2022-12-02 09:05 | P.CNGI_ITS ---
History of Present Illness Data of Consult Service Date: 12/02/22 Requesting physician: [place] Marlow Primary Care Provider: Jayy Foster MD HPI Reason for consult: Rectal bleeding This is a 72y.o M with PMH of carotid artery disease, prostate ca s/p XRT and radical prostatectomy, hyperlipidemia who presented to the hospital for chest pain. Gastroenterology has been consulted for acute anemia and rectal bleeding. Pt reports having 4-5 episodes of david blood ME on Wednesday that were self limiting. This was not associated with any abd pain, rectal pain, fevers or chills. He does not report any chest pain, lightheadedness or dizziness that day. Then on Wednesday he started noticing chest pain and heaviness radiating to shoulders that would get worse on exertion. The episodes would come and go and each would last around 20-30 mins. However on the day of admission, pain was w orse and lasted longer than usual, associated with lightheadedness and diaphoresis and therefore he came to the ER. On presentation, he was noted to have hypotension that was responsive to fluid resuscitation. Blood work showed Hb of 10.9, down from previous baseline of 16. He was given 1u PRBC subsequently. CT Abd/pel without contrast showed mild wall thickening throughout colon worse in rectum. Pt was also noted to have dynamic changes on EKG with elevated trops; and undergoing cardiac work up. [place] 11/2021 (Dr Brooks) Sigmoid Colon:? severe diverticulosis with luminal narrowing and mucosal hypertrophy Rectum: Retroflexion not done due to rectal inflammation and ucleration. At analrectal junction a shallow ulceration 10-12 mm with surrounding edema and induration noted, bx taken, Also scattered telangiectasia seen compatible with radiation proctitis. At the rectosigmoid junction there was a12 mm semi peudculated polyp which was injected with few cc of epinephrine and then removed with hot snare. Edges ablated with soft tip coag. Path: A.? Rectum, polypectomy:? Tubular adenoma; negative for high-grade dysplasia or carcinoma. B. ? Rectum, ulcer, biopsy:? Anorectal mucosa with mucosal congestion and architectural disarray, consistent with sampling near an ulcer. Review of Systems Review of Systems: Yes all other systems are reviewed and are negative PMFSH Past Medical History Medical History Anal discharge Anxiety Basilar artery aneurysm Benign essential hypertension Bilateral carotid artery stenosis Cerebellar hemorrhage Degenerative disc disease, cervical Depression Epilepsy Impaired fasting glucose Prostate cancer Pure hypercholesterolemia Radiation colitis Restless legs syndrome Family History Family History Father Cancer Mother Chronic mental illness Son In good health Daughter In good health Surgical History Surgical History H/O radical prostatectomy History of common carotid artery stent placement History of inguinal hernia repair Hx of colonoscopy Social History Social History Household Members: Children and Other Housing: House Do you presently have visiting nurse or other home services: No Alcohol intake: current Alcohol intake frequency: does not drink Patient Tobacco Use Status: Former Tobacco user Quit Date: quit 7 yrs ago Tobacco use type: Cigarette Smoked in Last 30 Days: No e-Cigarette/Vaping Use: Never Used Second Hand Smoke Exposure: No Use of substances other than those prescribed or required for medical reasons: Yes Substance Use Type: Marijuana Last Used Substance: Days (ago) Currently Displaying Signs/Symptoms of Drug Intoxication Withdrawal: No Have you been hit, kicked, punched, or otherwise hurt by someone within the past year? If so, by whom?: No Advance Directives: No Advance Directives Information Provided: Yes Advance Directives on File: No Do you have thoughts of harming others: None Do you have a plan to hurt others: No Plan Recently lost weight without trying: No How much weight loss: 2-13 pounds Eating poorly because of decreased appetite: No Nutrition screen score: 1 Nutrition Risks: No Nutritional Risk service: No Current occupational status: retired Cognitive needs: No Hearing needs: No Vision needs: Yes Meds Allergies Allergy/AdvReac Type Severity Reaction Status Date / Time zolpidem AdvReac Unknown sleepwalkin Verified 10/20/22 10:21 g Active Medications: Current Medications Acetaminophen (Acetaminophen 325 Mg Tablet) 650 mg PO Q6H PRN PRN Reason: Pain, Mild (Pain Scale 1-3) Alprazolam (Alprazolam 0.5 Mg Tablet) 1 mg PO BID HERMINIO Last Admin: 12/01/22 21:31 Dose: 1 mg Atorvastatin Calcium (Atorvastatin Calcium 80 Mg Tablet) 80 mg PO DAILY [facility] Cyanocobalamin (Cyanocobalamin (Vitamin B-12) 1,000 Mcg Tablet) 1,000 mcg PO DAILY [facility] Docusate Sodium (Docusate Sodium 100 Mg Capsule) 100 mg PO DAILY PRN PRN Reason: Constipation Ceftriaxone Sodium 1 gm/ (Sodium Chloride) 50 mls @ 100 mls/hr IV Q24H [facility] Last Infusion: 12/01/22 20:00 Dose: Infused Metronidazole (Flagyl) 500 mg in 100 mls @ 100 mls/hr IV Q12H [facility] Last Infusion: 12/01/22 22:54 Dose: Infused Mirtazapine (Mirtazapine 30 Mg Tablet) 30 mg PO BEDTIME [facility] Last Admin: 12/01/22 21:33 Dose: 30 mg Multivitamins/Vitamin C (Multivitamin Tablet) 1 tab PO DAILY [facility] Ondansetron HCl (Ondansetron Hcl 4 Mg/2 Ml Vial) 4 mg IVPUSH Q8H PRN PRN Reason: Nausea and Vomiting Pantoprazole Sodium (Pantoprazole Sodium 40 Mg/10 Ml Vial) 40 mg IVPUSH BID@0630,1630 [facility] Last Admin: 12/02/22 05:31 Dose: 40 mg Paroxetine HCl (Paroxetine Hcl 30 Mg Tablet) 60 mg PO BEDTIME [facility] Last Admin: 12/01/22 21:33 Dose: 60 mg Quetiapine Fumarate (Quetiapine Fumarate 100 Mg Tablet) 100 mg PO BEDTIME [facility] Last Admin: 12/01/22 21:33 Dose: 100 mg Ropinirole HCl (Ropinirole Hcl 1 Mg Tablet) 3 mg PO BEDTIME [facility] Last Admin: 12/01/22 21:32 Dose: 3 mg Sodium Chloride (0.9 % Sodium Chloride Flush 3 Ml Syringe) 3 ml IVFLUSH QSHIFT [facility] Last Admin: 12/02/22 00:42 Dose: 3 ml Vitamin D (Cholecalciferol (Vitamin D3) 25 Mcg Tablet) 25 mcg PO DAILY [facility] Zolpidem Tartrate (Zolpidem Tartrate 5 Mg Tablet) 5 mg PO BEDTIME [facility] Last Admin: 12/01/22 21:32 Dose: 5 mg Home Medications Medication Instructions Recorded Confirmed Last Taken Type alprazolam 1 mg tablet 1 mg PO BID 12/01/22 12/01/22 12/01/22 History cholecalciferol (vitamin D3) 25 25 mcg PO DAILY 12/01/22 12/01/22 12/01/22 History mcg (1,000 unit) tablet cyanocobalamin (vitamin B-12) 1,000 mcg PO DAILY 12/01/22 12/01/22 12/01/22 History 1,000 mcg tablet [id number] 300 mcg-K 60 1 tab PO DAILY 12/01/22 12/01/22 12/01/22 History mcg-lycop 600 mcg-lutein 300 mcg tablet (Centrum Silver Men) paroxetine HCl 30 mg tablet 60 mg PO BEDTIME 12/01/22 12/01/22 11/30/22 History zolpidem 10 mg tablet 10 mg PO BEDTIME 12/01/22 12/01/22 11/30/22 History Physical Exam Vital Signs: Vital Signs: Last Vital Signs Temp 97.7 F 12/02/22 07:11 Pulse 93 12/02/22 07:31 Resp 16 12/02/22 07:11 BP 134/75 12/02/22 07:31 Pulse Ox 93 12/02/22 07:31 O2 Del Method Room Air 12/02/22 07:11 BMI result Body Mass Index 21.3 Gen appear: NAD, non toxic appearing HEENT: nonicteric, no cervical lymphadenopathy Chest: CTA CVS: Regular S1/S2 Abd: soft, nontender, mild distended, bowel sounds + Ext: no peripheral edema Neuro: A/Ox3, noted to move all extremities spontaneously Psych: interacting appropriately Results Labs 12/02/22 07:20 12/02/22 07:20 Labs: Short CBC 12/01/22 12/01/22 12/02/22 Range/Units 13:55 19:50 07:20 WBC 11.2 H 8.5 (4.8-10.8) X10*3/uL Hgb 10.9 L D 11.9 L 13.2 L (14.0-18.0) g/dl Hct 32.2 L D 36.0 L 39.7 L (42.0-52.0) % Plt Count 234 D 204 (160-400) X10*3/uL BMP 12/01/22 12/02/22 13:55 07:20 Sodium 138 142 Potassium 4.9 4.8 Chloride 109 H 110 H Carbon Dioxide 21 L 23 BUN 46 H 39 H Creatinine 1.93 H 1.72 H Calcium 8.9 D 9.4 Liver Function 12/01/22 Range/Units 13:55 Total Bilirubin 0.7 (0.0-1.0) mg/dL AST 13 (5-37) U/L ALT 17 (0-40) U/L Alkaline Phosphatase 80 (39-117) U/L Albumin 3.5 (3.5-5.0) g/dL Urine 12/01/22 Range/Units 14:58 Urine Color Yellow Urine Appearance Clear Urine pH 6.5 (5.0-9.0) Ur Specific [place] <= 1.005 (1.005-1.025) Urine Protein Negative (Neg-Trace) mg/dL Urine Glucose (UA) Negative (Negative) mg/dL Assessment and Plan (1) Colitis: Status: Acute (2) Acute gastrointestinal bleeding: Status: Acute (3) Acute hypotension: Status: Acute (4) Acute anemia: Status: Acute (5) Elevated troponin I level: Status: Acute Plan Based on history and findings on recent colo from last year, most likely had LGIB due to radiation proctitis. Currently has not had any bleeding x 2 days. Also does not report any rectal pain or obstructive sx. Appreciate input from Cardiology. Recommendations: - Work up for anginal sx as per Cardiology - Will hold off diagnostic endoscopy for now, until cleared from cardiology standpoint - Monitor H/H - If has recurrence of mild bleeding, can start sucralfate enemas - If has hemodynamically significant bleeding, will need to review periprocedural risk with the pt before proceeding with flex sig for APC Thank you for allowing me to participate in his care. Please do not hesitate to reach out for any questions or concerns. Time Spent With Patient Time: Total time managing care of this patient today ____ minutes. Procedures Date of Service Date of Service: 12/02/22
--- NOTE | 2022-12-02 09:46 | MHC.CM.PN ---
IMM 12/02. Pt admitted with acute blood loss anemia, elevated troponins, and colitis. Pt lives at home with his daughter, he is independent/self-care. D/C plan to return home self-care when medically cleared. Pts daughter or friend will transport him home. HCP created and on file. PCP: Jayy Hathaway vax: x [phone]
[2022-12-02] MEDS: Atorvastatin Calcium 80 MG TABLET PO (09:49)
[2022-12-02] MEDS: ALPRAZolam 0.5 MG TABLET 1 MG PO ×2 (09:49→20:30)
[2022-12-02] MEDS: Cyanocobalamin (Vitamin B-12) 1,000 MCG TABLET 1000 MCG PO (09:49)
[2022-12-02] MEDS: Multivitamin TABLET 1 TAB PO (09:49)
[2022-12-02] MEDS: metroNIDAZOLE/NS 500 MG/100 ML PIGGYBACK 100 MG IV ×2 (09:50→18:05)
[2022-12-02] MEDS: Cholecalciferol (Vitamin D3) 25 MCG TABLET PO (10:36)
--- NOTE | 2022-12-02 13:37 | PM.CNCAR ---
History of Present Illness History of Present Illness Date of Service: 12/02/22 Requesting physician: Alyssa Carty Chief complaint: acute blood loss anemia, elevated troponins,coliti Narrative: 72-year-old gentleman who is presenting with chest discomfort and GI bleed. He was having significant diarrhea and was later noticed in the hospital to have bloody diarrhea. He came hypotensive. He was complaining of chest tightness at that time radiating to both shoulders. He was resuscitated and was noticed to have hemoglobin of 10 and was given 1 unit of blood. He is denying any chest discomfort currently. He is saying he has never had similar discomfort in his chest before. No other complaints currently. Labs EKG and imaging reviewed. [facility] Past Medical History Medical History Anal discharge Anxiety Basilar artery aneurysm Benign essential hypertension Bilateral carotid artery stenosis Cerebellar hemorrhage Degenerative disc disease, cervical Depression Epilepsy Impaired fasting glucose Prostate cancer Pure hypercholesterolemia Radiation colitis Restless legs syndrome Family History Family History Father Cancer Mother Chronic mental illness Son In good health Daughter In good health Surgical History Surgical History H/O radical prostatectomy History of common carotid artery stent placement History of inguinal hernia repair Hx of colonoscopy Social History Social History Household Members: Children and Other Housing: House Do you presently have visiting nurse or other home services: No Alcohol intake: current Alcohol intake frequency: does not drink Patient Tobacco Use Status: Former Tobacco user Quit Date: quit 7 yrs ago Tobacco use type: Cigarette Smoked in Last 30 Days: No e-Cigarette/Vaping Use: Never Used Second Hand Smoke Exposure: No Use of substances other than those prescribed or required for medical reasons: Yes Substance Use Type: Marijuana Last Used Substance: Days (ago) Currently Displaying Signs/Symptoms of Drug Intoxication Withdrawal: No Have you been hit, kicked, punched, or otherwise hurt by someone within the past year? If so, by whom?: No Advance Directives: No Advance Directives Information Provided: Yes Advance Directives on File: No Do you have thoughts of harming others: None Do you have a plan to hurt others: No Plan Recently lost weight without trying: No How much weight loss: 2-13 pounds Eating poorly because of decreased appetite: No Nutrition screen score: 1 Nutrition Risks: No Nutritional Risk service: No Current occupational status: retired Cognitive needs: No Hearing needs: No Vision needs: Yes Meds Allergies Allergy/AdvReac Type Severity Reaction Status Date / Time zolpidem AdvReac Unknown sleepwalkin Verified 10/20/22 10:21 g Active Medications: Current Medications Acetaminophen (Acetaminophen 325 Mg Tablet) 650 mg PO Q6H PRN PRN Reason: Pain, Mild (Pain Scale 1-3) Alprazolam (Alprazolam 0.5 Mg Tablet) 1 mg PO BID [facility] Last Admin: 12/02/22 09:49 Dose: 1 mg Atorvastatin Calcium (Atorvastatin Calcium 80 Mg Tablet) 80 mg PO DAILY [facility] Last Admin: 12/02/22 09:49 Dose: 80 mg Cyanocobalamin (Cyanocobalamin (Vitamin B-12) 1,000 Mcg Tablet) 1,000 mcg PO DAILY [facility] Last Admin: 12/02/22 09:49 Dose: 1,000 mcg Docusate Sodium (Docusate Sodium 100 Mg Capsule) 100 mg PO DAILY PRN PRN Reason: Constipation Ceftriaxone Sodium 1 gm/ (Sodium Chloride) 50 mls @ 100 mls/hr IV Q24H [facility] Last Infusion: 12/01/22 20:00 Dose: Infused Metronidazole (Flagyl) 500 mg in 100 mls @ 100 mls/hr IV Q12H [facility] Last Infusion: 12/02/22 13:14 Dose: Infused Mirtazapine (Mirtazapine 30 Mg Tablet) 30 mg PO BEDTIME [facility] Last Admin: 12/01/22 21:33 Dose: 30 mg Multivitamins/Vitamin C (Multivitamin Tablet) 1 tab PO DAILY [facility] Last Admin: 12/02/22 09:49 Dose: 1 tab Ondansetron HCl (Ondansetron Hcl 4 Mg/2 Ml Vial) 4 mg IVPUSH Q8H PRN PRN Reason: Nausea and Vomiting Pantoprazole Sodium (Pantoprazole Sodium 40 Mg/10 Ml Vial) 40 mg IVPUSH BID@0630,1630 [facility] Last Admin: 12/02/22 05:31 Dose: 40 mg Paroxetine HCl (Paroxetine Hcl 30 Mg Tablet) 60 mg PO BEDTIME [facility] Last Admin: 12/01/22 21:33 Dose: 60 mg Quetiapine Fumarate (Quetiapine Fumarate 100 Mg Tablet) 100 mg PO BEDTIME [facility] Last Admin: 12/01/22 21:33 Dose: 100 mg Ropinirole HCl (Ropinirole Hcl 1 Mg Tablet) 3 mg PO BEDTIME [facility] Last Admin: 12/01/22 21:32 Dose: 3 mg Sodium Chloride (0.9 % Sodium Chloride Flush 3 Ml Syringe) 3 ml IVFLUSH QSHIFT [facility] Last Admin: 12/02/22 09:50 Dose: 3 ml Vitamin D (Cholecalciferol (Vitamin D3) 25 Mcg Tablet) 25 mcg PO DAILY [facility] Last Admin: 12/02/22 10:36 Dose: 25 mcg Zolpidem Tartrate (Zolpidem Tartrate 5 Mg Tablet) 5 mg PO BEDTIME [facility] Last Admin: 12/01/22 21:32 Dose: 5 mg Home Medications Medication Instructions Recorded Confirmed Last Taken Type alprazolam 1 mg tablet 1 mg PO BID 12/01/22 12/01/22 12/01/22 History cholecalciferol (vitamin D3) 25 25 mcg PO DAILY 12/01/22 12/01/22 12/01/22 History mcg (1,000 unit) tablet cyanocobalamin (vitamin B-12) 1,000 mcg PO DAILY 12/01/22 12/01/22 12/01/22 History 1,000 mcg tablet [id number] 300 mcg-K 60 1 tab PO DAILY 12/01/22 12/01/22 12/01/22 History mcg-lycop 600 mcg-lutein 300 mcg tablet (Centrum Silver Men) paroxetine HCl 30 mg tablet 60 mg PO BEDTIME 12/01/22 12/01/22 11/30/22 History zolpidem 10 mg tablet 10 mg PO BEDTIME 12/01/22 12/01/22 11/30/22 History Physical Exam Vital Signs: Vital Signs: Last Vital Signs Temp 97.2 F 12/02/22 11:17 Pulse 89 12/02/22 11:17 Resp 16 12/02/22 11:17 BP 100/72 12/02/22 11:17 Pulse Ox 96 12/02/22 11:17 O2 Del Method Room Air 12/02/22 11:17 BMI result Body Mass Index 21.3 GENERAL APPEARANCE: in no acute distress, pleasant. NECK: no carotid bruit, no jugular venous distention. SKIN: no suspicious lesions, warm and dry. HEART: no murmurs, regular rate and rhythm. LUNGS: clear to auscultation bilaterally. ABDOMEN: soft, nontender. EXTREMITIES: no edema. PERIPHERAL PULSES: equal. NEUROLOGIC: No gross deficits, AAO X 3 Objective Labs and Meds 12/02/22 07:20 12/02/22 07:20 Lab results: Laboratory Results - last 24 hr 12/01/22 12/01/22 12/01/22 13:37 13:55 13:55 WBC 11.2 H RBC 3.31 L D Hgb 10.9 L D Hct 32.2 L D MCV 97.3 MCH 32.9 MCHC 33.9 RDW 12.7 Plt Count 234 D MPV 9.1 L Immature Gran % (Auto) 0.6 H Neut % (Auto) 79.0 H Lymph % (Auto) 14.0 L [place] % (Auto) 5.1 Eos % (Auto) 0.9 Baso % (Auto) 0.4 Lymph # (Auto) 1.6 [place] # (Auto) 0.6 Eos # (Auto) 0.1 Baso # (Auto) 0.0 Abs Immat Gran (auto) 0.07 H Absolute Neuts (auto) 8.8 H Absolute Nucleated RBC 0.000 Nucleated RBC % (auto) 0.0 PT INR APTT Sodium 138 Potassium 4.9 Chloride 109 H Carbon Dioxide 21 L Anion Gap 13 BUN 46 H Creatinine 1.93 H Estim Creat Clear Calc 33.3 Estimated GFR 34 Random Glucose 86 Lactic Acid Calcium 8.9 D Total Bilirubin 0.7 AST 13 ALT 17 Alkaline Phosphatase 80 Troponin I High Sens B-Natriuretic Peptide Total Protein 5.9 L Albumin 3.5 Lipase 32 Urine Color Urine Appearance Urine pH Ur Specific [place] Urine Protein Urine Glucose (UA) Urine Ketones Urine Blood Urine Nitrite Ur Leukocyte Esterase Stool Occult Blood Urine Opiates Screen Urine Fentanyl Screen Ur Barbiturates Screen Ur Phencyclidine Scrn Ur Amphetamines Screen U Benzodiazepines Scrn Urine Cocaine Screen U Marijuana (THC) Screen Ethyl Alcohol COVID-19 ([facility]) Negative COVID-19 Clin Com See Note Blood Type Antibody Screen Crossmatch 12/01/22 12/01/22 12/01/22 13:55 13:55 13:55 WBC RBC Hgb Hct MCV MCH MCHC RDW Plt Count MPV Immature Gran % (Auto) Neut % (Auto) Lymph % (Auto) [place] % (Auto) Eos % (Auto) Baso % (Auto) Lymph # (Auto) [place] # (Auto) Eos # (Auto) Baso # (Auto) Abs Immat Gran (auto) Absolute Neuts (auto) Absolute Nucleated RBC Nucleated RBC % (auto) PT 11.3 INR 0.9 APTT 26.5 Sodium Potassium Chloride Carbon Dioxide Anion Gap BUN Creatinine Estim Creat Clear Calc Estimated GFR Random Glucose Lactic Acid 1.8 Calcium Total Bilirubin AST ALT Alkaline Phosphatase Troponin I High Sens B-Natriuretic Peptide 69 Total Protein Albumin Lipase Urine Color Urine Appearance Urine pH Ur Specific [place] Urine Protein Urine Glucose (UA) Urine Ketones Urine Blood Urine Nitrite Ur Leukocyte Esterase Stool Occult Blood Urine Opiates Screen Urine Fentanyl Screen Ur Barbiturates Screen Ur Phencyclidine Scrn Ur Amphetamines Screen U Benzodiazepines Scrn Urine Cocaine Screen U Marijuana (THC) Screen Ethyl Alcohol COVID-19 ([facility]) COVID-19 [place] Com Blood Type Antibody Screen Crossmatch 12/01/22 12/01/22 12/01/22 13:55 13:55 13:55 WBC RBC Hgb Hct MCV MCH MCHC RDW Plt Count MPV Immature Gran % (Auto) Neut % (Auto) Lymph % (Auto) [place] % (Auto) Eos % (Auto) Baso % (Auto) Lymph # (Auto) [place] # (Auto) Eos # (Auto) Baso # (Auto) Abs Immat Gran (auto) Absolute Neuts (auto) Absolute Nucleated RBC Nucleated RBC % (auto) PT INR APTT Sodium Potassium Chloride Carbon Dioxide Anion Gap BUN Creatinine Estim Creat Clear Calc Estimated GFR Random Glucose Lactic Acid Calcium Total Bilirubin AST ALT Alkaline Phosphatase Troponin I High Sens 44.7 H B-Natriuretic Peptide Total Protein Albumin Lipase Urine Color Urine Appearance Urine pH Ur Specific [place] Urine Protein Urine Glucose (UA) Urine Ketones Urine Blood Urine Nitrite Ur Leukocyte Esterase Stool Occult Blood Urine Opiates Screen Urine Fentanyl Screen Ur Barbiturates Screen Ur Phencyclidine Scrn Ur Amphetamines Screen U Benzodiazepines Scrn Urine Cocaine Screen U Marijuana (THC) Screen Ethyl Alcohol < 10 COVID-19 ([facility]) COVID-19 [place] Com Blood Type B Positive Antibody Screen NEGATIVE Crossmatch See Detail 12/01/22 12/01/2212/01/23 13:58 14:58 14:58 WBC RBC Hgb Hct MCV MCH MCHC RDW Plt Count MPV Immature Gran % (Auto) Neut % (Auto) Lymph % (Auto) [place] % (Auto) Eos % (Auto) Baso % (Auto) Lymph # (Auto) [place] # (Auto) Eos # (Auto) Baso # (Auto) Abs Immat Gran (auto) Absolute Neuts (auto) Absolute Nucleated RBC Nucleated RBC % (auto) PT INR APTT Sodium Potassium Chloride Carbon Dioxide Anion Gap BUN Creatinine Estim Creat Clear Calc Estimated GFR Random Glucose Lactic Acid Calcium Total Bilirubin AST ALT Alkaline Phosphatase Troponin I High Sens B-Natriuretic Peptide Total Protein Albumin Lipase Urine Color Yellow Urine Appearance Clear Urine pH 6.5 Ur Specific [place] <= 1.005 Urine Protein Negative Urine Glucose (UA) Negative Urine Ketones Negative Urine Blood Negative Urine Nitrite Negative Ur Leukocyte Esterase Negative Stool Occult Blood POSITIVE Urine Opiates Screen Not Detected Urine Fentanyl Screen Not Detected Ur Barbiturates Screen Not Detected Ur Phencyclidine Scrn Not Detected Ur Amphetamines Screen Not Detected U Benzodiazepines Scrn POSITIVE H Urine Cocaine Screen Not Detected U Marijuana (THC) Screen POSITIVE H Ethyl Alcohol COVID-19 ([facility]) COVID-19 Clin Com Blood Type Antibody Screen Crossmatch 12/01/22 12/01/22 12/02/22 17:03 19:50 07:20 WBC 8.5 RBC 4.08 L D Hgb 11.9 L 13.2 L Hct 36.0 L 39.7 L MCV 97.3 MCH 32.4 MCHC 33.2 RDW 14.3 Plt Count 204 MPV 9.2 L Immature Gran % (Auto) 0.7 H Neut % (Auto) 77.7 H Lymph % (Auto) 13.2 L [place] % (Auto) 6.3 Eos % (Auto) 1.7 Baso % (Auto) 0.4 Lymph # (Auto) 1.1 L [place] # (Auto) 0.5 Eos # (Auto) 0.1 Baso # (Auto) 0.0 Abs Immat Gran (auto) 0.06 H Absolute Neuts (auto) 6.6 Absolute Nucleated RBC 0.000 Nucleated RBC % (auto) 0.0 PT INR APTT Sodium Potassium Chloride Carbon Dioxide Anion Gap BUN Creatinine Estim Creat Clear Calc Estimated GFR Random Glucose Lactic Acid Calcium Total Bilirubin AST ALT Alkaline Phosphatase Troponin I High Sens 40.0 H B-Natriuretic Peptide Total Protein Albumin Lipase Urine Color Urine Appearance Urine pH Ur Specific [place] Urine Protein Urine Glucose (UA) Urine Ketones Urine Blood Urine Nitrite Ur Leukocyte Esterase Stool Occult Blood Urine Opiates Screen Urine Fentanyl Screen Ur Barbiturates Screen Ur Phencyclidine Scrn Ur Amphetamines Screen U Benzodiazepines Scrn Urine Cocaine Screen U Marijuana (THC) Screen Ethyl Alcohol COVID-19 ([facility]) COVID-19 Clin Com Blood Type Antibody Screen Crossmatch 12/02/22 07:20 WBC RBC Hgb Hct MCV MCH MCHC RDW Plt Count MPV Immature Gran % (Auto) Neut % (Auto) Lymph % (Auto) [place] % (Auto) Eos % (Auto) Baso % (Auto) Lymph # (Auto) [place] # (Auto) Eos # (Auto) Baso # (Auto) Abs Immat Gran (auto) Absolute Neuts (auto) Absolute Nucleated RBC Nucleated RBC % (auto) PT INR APTT Sodium 142 Potassium 4.8 Chloride 110 H Carbon Dioxide 23 Anion Gap 14 BUN 39 H Creatinine 1.72 H Estim Creat Clear Calc 37.4 Estimated GFR 39 Random Glucose 116 H Lactic Acid Calcium 9.4 Total Bilirubin AST ALT Alkaline Phosphatase Troponin I High Sens B-Natriuretic Peptide Total Protein Albumin Lipase Urine Color Urine Appearance Urine pH Ur Specific [place] Urine Protein Urine Glucose (UA) Urine Ketones Urine Blood Urine Nitrite Ur Leukocyte Esterase Stool Occult Blood Urine Opiates Screen Urine Fentanyl Screen Ur Barbiturates Screen Ur Phencyclidine Scrn Ur Amphetamines Screen U Benzodiazepines Scrn Urine Cocaine Screen U Marijuana (THC) Screen Ethyl Alcohol COVID-19 ([facility]) COVID-19 Clin Com Blood Type Antibody Screen Crossmatch Imaging Radiologist's impression: Impressions Chest X-Ray 12/01/22 14:06 IMPRESSION: No acute cardiopulmonary process. Abdomen/Pelvis CT 12/01/22 15:37 IMPRESSION: 1. Scattered diffuse mild colonic and rectal mural thickening without surrounding infiltrative changes is nonspecific, but appears increased from the 2021 study. Given the patient's symptoms, this could represent sequelae of possible subacute colitis. Developing acute colitis would be less likely. If symptoms persist or worsen, short-term repeat CT follow-up is recommended as clinically indicated to assess for more acute change. 2. Other incidental findings detailed above without significant interval change. Head CT 12/01/22 15:37 IMPRESSION: No acute intracranial pathology. Assessment and Plan (1) Colitis: Status: Acute (2) Acute gastrointestinal bleeding: Status: Acute (3) Chest pain: Status: Acute Plan 72-year-old gentleman presenting with chest discomfort and GI bleed. Was having diarrhea and came with hypotension and chest tightness. He also had bloody bowel movement in the hospital and eventually was given 1 unit of blood. He has background history of radiation proctitis. His chest discomfort has resolved. He has precordial T-wave inversions which are nonspecific appearing. Clinical story is somewhat concerning for angina but he came with bleeding which needs to be further workup to make sure there is any reversible cause present or not. If bleeding settles then we can consider doing further workup. Check echocardiogram to rule out any wall motion abnormalities. GI workup. Thank you for allowing me to participate in the care of your patient. Please feel free to contact me if you have any questions. Time Spent With Patient Time: Total time managing care of this patient today ____ minutes. Procedures Date of Service Date of Service: 12/02/22
--- NOTE | 2022-12-02 15:47 | HO.PM.IMPN ---
Subjective Subjective Date of Service: 12/02/22 Interval History: chest pain, falls, brbpr Review of Systems no new bleeding episode diarrahe improved , no fevers denies chest pain even with walkin Physical Exam Vital Signs: Vital Signs: Last Vital Signs Temp 98.0 F 12/02/22 14:50 Pulse 81 12/02/22 14:50 Resp 20 12/02/22 14:50 BP 104/61 12/02/22 14:50 Pulse Ox 98 12/02/22 14:50 O2 Del Method Room Air 12/02/22 14:50 BMI result Body Mass Index 21.3 Appearance: Alert.? Oriented X3.? not in distress.?. cvs: rrr, [id number] . res: clear to auscultation ,no rhonchii or wheezing abd: no rebound or guarding ,nt, bs present. ext pulses present , no cyanosis . neuro: axo3 , nonfocal. Objective Data Active Medications Acetaminophen (Acetaminophen 325 Mg Tablet) 650 mg PO Q6H PRN PRN Reason: Pain, Mild (Pain Scale 1-3) Alprazolam (Alprazolam 0.5 Mg Tablet) 1 mg PO BID [facility] Last Admin: 12/02/22 09:49 Dose: 1 mg Documented By: MINDY Atorvastatin Calcium (Atorvastatin Calcium 80 Mg Tablet) 80 mg PO DAILY [facility] Last Admin: 12/02/22 09:49 Dose: 80 mg Documented By: MINDY Cyanocobalamin (Cyanocobalamin (Vitamin B-12) 1,000 Mcg Tablet) 1,000 mcg PO DAILY [facility] Last Admin: 12/02/22 09:49 Dose: 1,000 mcg Documented By: MINDY Docusate Sodium (Docusate Sodium 100 Mg Capsule) 100 mg PO DAILY PRN PRN Reason: Constipation Ceftriaxone Sodium 1 gm/ (Sodium Chloride) 50 mls @ 100 mls/hr IV Q24H [facility] Last Infusion: 12/01/22 20:00 Dose: 0 mls/hr Documented By: EVY Metronidazole (Flagyl) 500 mg in 100 mls @ 100 mls/hr IV Q12H [facility] Last Infusion: 12/02/22 13:14 Dose: 0 mls/hr Documented By: MINDY Mirtazapine (Mirtazapine 30 Mg Tablet) 30 mg PO BEDTIME [facility] Last Admin: 12/01/22 21:33 Dose: 30 mg Documented By: TING Multivitamins/Vitamin C (Multivitamin Tablet) 1 tab PO DAILY [facility] Last Admin: 12/02/22 09:49 Dose: 1 tab Documented By: MINDY Ondansetron HCl (Ondansetron Hcl 4 Mg/2 Ml Vial) 4 mg IVPUSH Q8H PRN PRN Reason: Nausea and Vomiting Pantoprazole Sodium (Pantoprazole Sodium 40 Mg/10 Ml Vial) 40 mg IVPUSH BID@0630,1630 [facility] Last Admin: 12/02/22 05:31 Dose: 40 mg Documented By: TEJINDER Paroxetine HCl (Paroxetine Hcl 30 Mg Tablet) 60 mg PO BEDTIME [facility] Last Admin: 12/01/22 21:33 Dose: 60 mg Documented By: TING Quetiapine Fumarate (Quetiapine Fumarate 100 Mg Tablet) 100 mg PO BEDTIME [facility] Last Admin: 12/01/22 21:33 Dose: 100 mg Documented By: TING Ropinirole HCl (Ropinirole Hcl 1 Mg Tablet) 3 mg PO BEDTIME [facility] Last Admin: 12/01/22 21:32 Dose: 3 mg Documented By: TING Sodium Chloride (0.9 % Sodium Chloride Flush 3 Ml Syringe) [facility] Last Admin: 12/02/22 09:50 Dose: 3 ml Documented By: MINDY Vitamin D (Cholecalciferol (Vitamin D3) 25 Mcg Tablet) 25 mcg PO DAILY [facility] Last Admin: 12/02/22 10:36 Dose: 25 mcg Documented By: MINDY Zolpidem Tartrate (Zolpidem Tartrate 5 Mg Tablet) 5 mg PO BEDTIME [facility] Last Admin: 12/01/22 21:32 Dose: 5 mg Documented By: TING Labs 12/02/22 07:20 12/02/22 07:20 Labs: Laboratory Results - last 24 hr 12/01/22 12/02/22 12/02/22 13:55 07:20 07:20 MCV 97.3 MCH 32.4 MCHC 33.2 RDW 14.3 Plt Count 204 MPV 9.2 L Immature Gran % (Auto) 0.7 H Neut % (Auto) 77.7 H Lymph % (Auto) 13.2 L [place] % (Auto) 6.3 Eos % (Auto) 1.7 Baso % (Auto) 0.4 Lymph # (Auto) 1.1 L [place] # (Auto) 0.5 Eos # (Auto) 0.1 Baso # (Auto) 0.0 Abs Immat Gran (auto) 0.06 H Absolute Neuts (auto) 6.6 Absolute Nucleated RBC 0.000 Nucleated RBC % (auto) 0.0 Anion Gap 14 Estim Creat Clear Calc 37.4 Estimated GFR 39 Random Glucose 116 H Calcium 9.4 Blood Type B Positive Antibody Screen NEGATIVE Crossmatch See Detail Assessment and Plan (1) Colitis: Status: Acute (2) Acute gastrointestinal bleeding: Status: Acute (3) Elevated troponin I level: Status: Acute Plan 72-year-old male with history of prostate cancer s/p prostatectomy and radiation therapy, history of radiation proctitis, hypercholesterolemia, coronary artery disease s/p PCI in 2014, hypertension, anxiety, epilepsy, carotid artery stenosis s/p bilateral carotid stenting, history cerebellar hemorrhage, and restless leg syndrome to be admitted for symptomatic blood loss anemia secondary to colitis with demand ischemia. Acute symptomatic blood loss anemia due to GI bleed -H/H 10.9/32.2% (significant decrease from 10/20 with H/H 16.0/47.9%) got 1 prbc in ed. h/h :13.2/39.7 No abdominal pain or diarrhea or gross bleeding now continue moniter h/h switch to daily, ppi,Gi eval possible Subacute colitis with acute GI bleed CT abd/pelvis showing subacute colitis need GI panel/CDiff PCR sent when has bm continue flagyl and ceftriaxone empirically Clear liquid diet, may need to advance diet GI eval pendin Elevated troponins- likely demand ischemia in setting of acute blood loss Initiatl trop 44, repeat 40 EKG with t wave inversions anteroseptal leads ? nonspecific. Currently asymptomatic, no exertional CP. Echo pending Cardiology consult-Clinical story is somewhat concerning for angina but he came with bleeding which needs to be further workup to make sure there is any reversible cause present or not.? If bleeding settles then consider doing further workup.Gi input pendin Acute kidney injury- likely r/t to blood loss resuscitated with 2 L IVF and 1 unit packed red blood cells renal function slightly improving encouraged for po hydration 250 ml q6hr,avoid nephrotoxins follow BMP nephro eval recurrent falls-likely related to generalized weakness and lightheadedness related to above PT evaluation hypertension -blood pressure is soft,hold antihypertensives for now coronary artery disease -chest pain/elevated troponins as above -echo ordered, cardiology consult -continue statin, hold Plavix hx Epilepsy-not on anti epileptics Mood disorder-continue home meds DVT prophylaxis- SCPs Full code inpatient need:acute blood loss anemia 2/2 gi bleed with demand ischemia requiring blood transfusion, IV abx, close monitoring of blood counts and cardiac function, and expert consultation(GI and cardiac workup). Time Spent With Patient Time: Total time managing care of this patient today ____ minutes. Quality Stroke Does the patient have a stroke diagnosis?: No VTE Prior VTE?: No VTE Risk Level:: Medical - moderate - high VTE Device Contraindication: N/A - Device Ordered VTE Drug Contraindication: Treatment Not Indicated
[2022-12-02] MEDS: cefTRIAXone sodium 1 GM in 0.9 % Sodium Chloride 50 ML IV (18:05)
[2022-12-02] MEDS: PARoxetine HCL 30 MG TABLET 60 MG PO (20:30)
[2022-12-02] MEDS: Zolpidem Tartrate 5 MG TABLET PO (20:30)
[2022-12-02] MEDS: Mirtazapine 30 MG TABLET PO (20:30)
[2022-12-02] MEDS: QUEtiapine Fumarate 100 MG TABLET PO (20:30)
[2022-12-02] MEDS: rOPINIRole HCL 1 MG TABLET 3 MG PO (20:30)
[2022-12-03 03:42] VITALS: BP 125/75; PULSE 91; RESP 18; TEMP 36.9; O2SAT 94
[2022-12-03] MEDS: Pantoprazole Sodium 40 MG/10 ML VIAL IVPUSH (05:46)
[2022-12-03 07:16] VITALS: BP 112/64; PULSE 98; RESP 18; TEMP 36.4; O2SAT 93
[2022-12-03 08:28] LABS: Hematocrit 39.5 % (42.0-52.0); Hemoglobin 12.8 g/dl (14.0-18.0)
[2022-12-03 08:52] LABS: Anion Gap 14 (12-20); Blood Urea Nitrogen 38 mg/dL (9-16); Calcium 9.5 mg/dL (8.4-10.2); Carbon Dioxide 23 mmol/L (22-29); Chloride 109 mmol/L (96-108); Creatinine Clr Calc Pharmacy 38.3; Estimated Glomerular Filt Rate 40; Glucose Random 108 mg/dL (60-115); Potassium 4.4 mmol/L (3.3-5.1); Sodium 142 mmol/L (135-145)
[2022-12-03] MEDS: metroNIDAZOLE/NS 500 MG/100 ML PIGGYBACK 100 MG IV ×2 (09:17→21:42)
[2022-12-03] MEDS: Atorvastatin Calcium 80 MG TABLET PO (09:18)
[2022-12-03] MEDS: ALPRAZolam 0.5 MG TABLET 1 MG PO ×2 (09:18→21:43)
[2022-12-03] MEDS: Cholecalciferol (Vitamin D3) 25 MCG TABLET PO (09:18)
[2022-12-03] MEDS: Cyanocobalamin (Vitamin B-12) 1,000 MCG TABLET 1000 MCG PO (09:18)
[2022-12-03] MEDS: Multivitamin TABLET 1 TAB PO (09:18)
[2022-12-03] MEDS: 0.9 % Sodium Chloride Flush 3 ML SYRINGE IVFLUSH ×2 (09:18→21:42)
[2022-12-03] MEDS: Omeprazole 20 MG CAPSULE.DR PO (11:02)
[2022-12-03 11:13] VITALS: BP 101/67; PULSE 98; RESP 18; TEMP 36.4; O2SAT 95
[2022-12-03 15:12] VITALS: BP 95/55; PULSE 83; RESP 14; TEMP 36.1; O2SAT 95
--- NOTE | 2022-12-03 15:12 | P.CDIM_ITS ---
PROVIDER RESPONSE TEXT: To clarify, the appropriate diagnosis supported by the clinical indicators: NSTEMI due to demand ischemia QUERY TEXT: PHYSICIAN'S DOCUMENTATION REQUEST Date of Query: 12/03/2022 08:48 AM EDT Patient Name: Irwin Clark Admit Date: 12/01/2022 Dear Alyssa Carty, A review of the medical record indicates additional documentation may be needed. Please review below and update the documentation accordingly. Clinical Indicators: Elevated troponins - likely demand ischemia in setting of acute blood loss. Cardiology somewhat concerning for angina but came in with bleeding which needs to be further worked up. Troponin 44 EKG CAD, chest discomfort, hypotensive. [place] Type 2 NSTEMI due to demand ischemia Other etiology of the elevated Troponins Other (explain)Clinically unable to determine (explain)Thank you, Eva Bermeo, CCS, CDIS Use of terms such as suspected, likely, concern for, or probable (associated with a specific diagnosi s that is being evaluated, monitored, or treated as if it exists) are acceptable and can be coded in the inpatient se tting, when documented at the time of discharge. Please use your independent medical judgment in providing your response. THIS QUERY IS PART OF THE PERMANENT MEDICAL RECORD
--- NOTE | 2022-12-03 17:01 | HO.PM.IMPN ---
Subjective Subjective Date of Service: 12/04/22 Interval History: Gi bleed ,chest pain Review of Systems Denies any chest pain, no new episode of GI bleeding. Physical Exam Vital Signs: Vital Signs: Last Vital Signs Temp 96.9 F 12/03/22 15:12 Pulse 83 12/03/22 15:12 Resp 14 12/03/22 15:12 BP 95/55 L 12/03/22 15:12 Pulse Ox 95 12/03/22 15:12 O2 Del Method Room Air 12/03/22 15:12 BMI result Body Mass Index 21.3 Appearance: Alert. Oriented X3. not in distress. . cvs: rrr, [id number] . res: clear to auscultation ,no rhonchii or wheezing abd: no rebound or guarding ,nt, bs present. ext pulses present , no cyanosis . neuro: axo3 , nonfocal. Objective Data Active Medications Acetaminophen (Acetaminophen 325 Mg Tablet) 650 mg PO Q6H PRN PRN Reason: Pain, Mild (Pain Scale 1-3) Alprazolam (Alprazolam 0.5 Mg Tablet) 1 mg PO BID [facility] Last Admin: 12/03/22 09:18 Dose: 1 mg Documented By: LESTER Atorvastatin Calcium (Atorvastatin Calcium 80 Mg Tablet) 80 mg PO DAILY [facility] Last Admin: 12/03/22 09:18 Dose: 80 mg Documented By: LESTER Cyanocobalamin (Cyanocobalamin (Vitamin B-12) 1,000 Mcg Tablet) 1,000 mcg PO DAILY [facility] Last Admin: 12/03/22 09:18 Dose: 1,000 mcg Documented By: LESTER Docusate Sodium (Docusate Sodium 100 Mg Capsule) 100 mg PO DAILY PRN PRN Reason: Constipation Ceftriaxone Sodium 1 gm/ (Sodium Chloride) 50 mls @ 100 mls/hr IV Q24H [facility] Last Infusion: 12/02/22 19:18 Dose: 0 mls/hr Documented By: MINDY Metronidazole (Flagyl) 500 mg in 100 mls @ 100 mls/hr IV Q12H [facility] Last Infusion: 12/03/22 11:18 Dose: 0 mls/hr Documented By: LESTER Mirtazapine (Mirtazapine 30 Mg Tablet) 30 mg PO BEDTIME [facility] Last Admin: 12/02/22 20:30 Dose: 30 mg Documented By: LINDA Multivitamins/Vitamin C (Multivitamin Tablet) 1 tab PO DAILY [facility] Last Admin: 12/03/22 09:18 Dose: 1 tab Documented By: LESTER Omeprazole (Omeprazole 20 Mg Capsule.Dr) 20 mg PO DAILY@0630 [facility] Last Admin: 12/03/22 11:02 Dose: 20 mg Documented By: LOBO Ondansetron HCl (Ondansetron Hcl 4 Mg/2 Ml Vial) 4 mg IVPUSH Q8H PRN PRN Reason: Nausea and Vomiting Paroxetine HCl (Paroxetine Hcl 30 Mg Tablet) 60 mg PO BEDTIME [facility] Last Admin: 12/02/22 20:30 Dose: 60 mg Documented By: LINDA Quetiapine Fumarate (Quetiapine Fumarate 100 Mg Tablet) 100 mg PO BEDTIME [facility] Last Admin: 12/02/22 20:30 Dose: 100 mg Documented By: LINDA Ropinirole HCl (Ropinirole Hcl 1 Mg Tablet) 3 mg PO BEDTIME [facility] Last Admin: 12/02/22 20:30 Dose: 3 mg Documented By: LINDA Sodium Chloride (0.9 % Sodium Chloride Flush 3 Ml Syringe) 3 ml IVFSH [facility] Last Admin: 12/03/22 09:18 Dose: 3 ml Documented By: LESTER Vitamin D (Cholecalciferol (Vitamin D3) 25 Mcg Tablet) 25 mcg PO DAILY [facility] Last Admin: 12/03/22 09:18 Dose: 25 mcg Documented By: LESTER Zolpidem Tartrate (Zolpidem Tartrate 5 Mg Tablet) 5 mg PO BEDTIME [facility] Last Admin: 12/02/22 20:30 Dose: 5 mg Documented By: LINDA Labs 12/03/22 08:16 12/03/22 08:16 Labs: Laboratory Results - last 24 hr 12/03/22 08:16 Anion Gap 14 Estim Creat Clear Calc 38.3 Estimated GFR 40 Random Glucose 108 Calcium 9.5 Microbiology Microbiology Results: Microbiology 12/01/22 13:55 Blood Culture - Preliminary Blood - Venous No growth after 48 hours. 12/01/22 13:55 Blood Culture - Preliminary Blood - Venous No growth after 48 hours. Assessment and Plan (1) Colitis: Status: Acute (2) Acute gastrointestinal bleeding: Status: Acute (3) Elevated troponin I level: Status: Acute Plan 72-year-old male with history of prostate cancer s/p prostatectomy and radiation therapy, history of radiation proctitis, hypercholesterolemia, coronary artery disease s/p PCI in 2014, hypertension, anxiety, epilepsy, carotid artery stenosis s/p bilateral carotid stenting, history cerebellar hemorrhage, and restless leg syndrome to be admitted for symptomatic blood loss anemia secondary to colitis with demand ischemia. Acute symptomatic blood loss anemia due to GI bleed -H/H 10.9/32.2% (significant decrease from 10/20 with H/H 16.0/47.9%) got 1 prbc in ed. h/h :13.2/39.7 No abdominal pain or diarrhea or gross bleeding now continue moniter h/h switch to daily, ppi,Gi eval noted -recomended to cardiac workup GI workup outpatient . possible Subacute colitis with acute GI bleed CT abd/pelvis showing subacute colitis need GI panel/CDiff PCR sent when has bm continue flagyl and ceftriaxone empirically Clear liquid diet, may need to advance diet GI eval pendin Elevated troponins- likely demand ischemia in setting of acute blood loss Initiatl trop 44, repeat 40 EKG with t wave inversions anteroseptal leads ? nonspecific. Currently asymptomatic, no exertional CP. Echo pending Cardiology consult-Clinical story is somewhat concerning for angina but he came with bleeding which needs to be further workup to make sure there is any reversible cause present or not.? If bleeding settles then consider doing further workup.Gi input pendin Acute kidney injury- likely r/t to blood loss resuscitated with 2 L IVF and 1 unit packed red blood cells renal function slightly improving encouraged for po hydration 250 ml q6hr,avoid nephrotoxins follow BMP nephro eval recurrent falls-likely related to generalized weakness and lightheadedness related to above PT evaluation hypertension -blood pressure is soft,hold antihypertensives for now coronary artery disease -chest pain/elevated troponins as above -echo ordered, cardiology consult -continue statin, hold Plavix hx Epilepsy-not on anti epileptics Mood disorder-continue home meds DVT prophylaxis- SCPs Full code inpatient need:acute blood loss anemia 2/2 gi bleed with demand ischemia requiring blood transfusion, IV abx, close monitoring of blood counts and cardiac function, and expert consultation(GI and cardiac workup). Time Spent With Patient Time: Total time managing care of this patient today ____ minutes. Quality Stroke Does the patient have a stroke diagnosis?: No VTE Prior VTE?: No VTE Risk Level:: Medical - moderate - high VTE Device Contraindication: N/A - Device Ordered VTE Drug Contraindication: Treatment Not Indicated
[2022-12-03] MEDS: cefTRIAXone sodium 1 GM in 0.9 % Sodium Chloride 50 ML IV (18:26)
[2022-12-03] MEDS: oxyCODONE HCl Immed Release 5 MG TABLET PO (18:40)
[2022-12-03 19:04] VITALS: BP 114/67; PULSE 84; RESP 16; TEMP 36.8; O2SAT 96
[2022-12-03 21:15] LABS: Hematocrit 37.1 % (42.0-52.0); Hemoglobin 12.2 g/dl (14.0-18.0)
[2022-12-03] MEDS: rOPINIRole HCL 1 MG TABLET 3 MG PO (21:43)
[2022-12-03] MEDS: Zolpidem Tartrate 5 MG TABLET PO (21:43)
[2022-12-03] MEDS: PARoxetine HCL 30 MG TABLET 60 MG PO (21:43)
[2022-12-03] MEDS: Mirtazapine 30 MG TABLET PO (21:43)
[2022-12-03] MEDS: QUEtiapine Fumarate 100 MG TABLET PO (21:43)
[2022-12-03 23:32] VITALS: BP 100/56; PULSE 79; RESP 14; TEMP 36.1; O2SAT 95
[2022-12-04 03:25] VITALS: BP 109/62; PULSE 89; RESP 18; TEMP 36.9; O2SAT 93
[2022-12-04] MEDS: Omeprazole 20 MG CAPSULE.DR PO (05:31)
[2022-12-04 07:12] VITALS: BP 128/69; PULSE 95; RESP 18; TEMP 36.4; O2SAT 93
[2022-12-04] MEDS: Cyanocobalamin (Vitamin B-12) 1,000 MCG TABLET 1000 MCG PO (08:54)
[2022-12-04] MEDS: Cholecalciferol (Vitamin D3) 25 MCG TABLET PO (08:54)
[2022-12-04] MEDS: Clopidogrel Bisulfate 75 MG TABLET PO (08:54)
[2022-12-04] MEDS: ALPRAZolam 0.5 MG TABLET 1 MG PO ×2 (08:54→20:21)
[2022-12-04] MEDS: Multivitamin TABLET 1 TAB PO (08:54)
[2022-12-04] MEDS: Atorvastatin Calcium 80 MG TABLET PO (08:54)
[2022-12-04] MEDS: metroNIDAZOLE/NS 500 MG/100 ML PIGGYBACK 100 MG IV (08:55)
[2022-12-04] MEDS: 0.9 % Sodium Chloride Flush 3 ML SYRINGE IVFLUSH ×2 (08:55→20:21)
[2022-12-04 09:45] LABS: Hematocrit 41.3 % (42.0-52.0); Hemoglobin 13.3 g/dl (14.0-18.0)
[2022-12-04 10:12] LABS: Blood Urea Nitrogen 38 mg/dL (9-16); Estimated Glomerular Filt Rate 44
[2022-12-04] MEDS: Loperamide HCl 2 MG CAPSULE PO (10:29)
--- NOTE | 2022-12-04 10:43 | PM.PNCARD ---
Subjective Subjective Date of Service: 12/04/22 Interval history: Seen and examined at bedside. Denying any symptoms. Physical Exam Vital Signs: Last Vital Signs Temp 97.5 F 12/04/22 07:12 Pulse 95 12/04/22 07:12 Resp 18 12/04/22 07:12 BP 128/69 12/04/22 07:12 Pulse Ox 93 12/04/22 07:12 O2 Del Method Room Air 12/04/22 07:12 BMI result Body Mass Index 21.3 GENERAL APPEARANCE: in no acute distress, pleasant. NECK: no carotid bruit, no jugular venous distention. SKIN: no suspicious lesions, warm and dry. HEART: no murmurs, regular rate and rhythm. LUNGS: clear to auscultation bilaterally. ABDOMEN: soft, nontender. EXTREMITIES: no edema. PERIPHERAL PULSES: equal. NEUROLOGIC: No gross deficits, AAO X 3 Objective Labs and Meds 12/04/22 09:15 12/04/22 09:15 Lab results: Laboratory Results - last 24 hr 12/03/22 12/04/22 12/04/22 19:40 09:15 09:15 Hgb 12.2 L 13.3 L Hct 37.1 L 41.3 L BUN 38 H Creatinine 1.57 H Estim Creat Clear Calc 41.0 Estimated GFR 44 Progress Note: A&P Assessment and plan (1) Chest pain: Status: Acute Plan [age] gentleman presenting with GI blood loss and chest pain. Breathing has been stable he has been started on antiplatelet therapy after discussion with Gastroenterology. Given chest discomfort radiating both shoulders and risk factors for coronary disease, we have decided to do an exercise stress echo today. Based on that we will go further with management plan. Blood pressure control is good. Thank you for allowing me to participate in the care of your patient. Please feel free to contact me if you have any questions. Time Spent With Patient Time: Total time managing care of this patient today ____ minutes. Progress Note: Quality Stroke Does the patient have a stroke diagnosis?: No Procedures Date of Service Date of Service: 12/04/22
[2022-12-04 11:13] VITALS: BP 103/63; PULSE 91; RESP 18; TEMP 36.8; O2SAT 96
--- NOTE | 2022-12-04 11:45 | CA_ITS ---
Acquisition Time: 2022-12-04 11:35:40 Total Exercise Time: 00:01:15 Test Indications: CP Medications: Protocol: CRUZ Max HR: 136 BPM 91% of Pred: 149 BPM Max BP: 118/078 mmHG Max Work Load: 3.1 METS Exercise stress text exercise 1 min 15 sec of Cruz protocol achieving 89% MPHR, with request to stop due to leg fatigue and feeling as if they were going to give out from under him, with moderate SOB, 5/10 chest pressure chest discomfort, with isolated PVCs, with normotensive response to exercise at achieved workload, with ST elevation in aVR, aVL, ST depression in lead 2, 3 V3-V6. Chest pain resolved to 0/10 with rest. Echo images obtained by SepSensor at rest and immediately post peak exercise. Definity contrast used. Test reviewed with Dr. Marroquin. Stress echo images reviewed. Resting LVEF and wall motion is normal but post stress there is septal dyskinesis which I think is due to PVC. LV function appears to be normal in post stress images. Conclusion: Abnormal stress echocardiogram. Referred By: Venkatesh Marroquin Overread By: Venkatesh Marroquin
--- NOTE | 2022-12-04 12:12 | MHC.CM.PN ---
EMR reviewed and per MD rounds, pt is not medically cleared for D/C today and is awaiting stress test. CM will continue to follow.
[2022-12-04 12:49] VITALS: BMI 19.7
[2022-12-04 13:19] LABS: Prothrombin Time 12.1 SEC (11.1-13.3)
[2022-12-04 13:22] LABS: PTT Heparin Drip 28.5 SEC (53-77.9)
[2022-12-04 14:01] LABS: Hematocrit 38.8 % (42.0-52.0); Hemoglobin 12.8 g/dl (14.0-18.0); Mean Corpuscular Hemoglobin 32.1 pg (27.0-33.0); Mean Corpuscular Volume 97.2 fL (80.0-98.0); Mean Platelet Volume 9.5 fL (9.4-12.4); Platelet Count 205 X10*3/uL (160-400); Red Blood Count 3.99 X10*6/uL (4.60-5.80); Red Cell Distribution Width 14.2 % (11.0-16.0); White Blood Count 8.3 X10*3/uL (4.8-10.8)
--- NOTE | 2022-12-04 14:53 | HO.PM.IMPN ---
Subjective Subjective Date of Service: 12/04/22 Interval History: Gi bleed ,chest pain Review of Systems no new episode of bleed 2-3 episode of diarrhae overnight-no bleed ,mostly loose stools as per patient no new chest pain Physical Exam Vital Signs: Vital Signs: Last Vital Signs Temp 98.2 F 12/04/22 11:13 Pulse 91 12/04/22 11:13 Resp 18 12/04/22 11:13 BP 103/63 12/04/22 11:13 Pulse Ox 96 12/04/22 11:13 O2 Del Method Room Air 12/04/22 11:13 BMI result Body Mass Index 19.7 Objective Data Active Medications Acetaminophen (Acetaminophen 325 Mg Tablet) 650 mg PO Q6H PRN PRN Reason: Pain, Mild (Pain Scale 1-3) Alprazolam (Alprazolam 0.5 Mg Tablet) 1 mg PO BID [facility] Last Admin: 12/04/22 08:54 Dose: 1 mg Documented By: LESTER Aspirin (Aspirin Enteric Coated 81 Mg Tablet.) 81 mg PO DAILY [facility] Atorvastatin Calcium (Atorvastatin Calcium 80 Mg Tablet) 80 mg PO DAILY [facility] Last Admin: 12/04/22 08:54 Dose: 80 mg Documented By: LESTER Cyanocobalamin (Cyanocobalamin (Vitamin B-12) 1,000 Mcg Tablet) 1,000 mcg PO DAILY [facility] Last Admin: 12/04/22 08:54 Dose: 1,000 mcg Documented By: LESTER Heparin Sodium (Porcine) (Heparin Sodium,Porcine 5,000 Unit/Ml Vial) 2,500 unit 40 unit/kg (2500 unit) IVPUSH PROTOCOL BOLUS PRN; Protocol PRN Reason: 40 unit/kg - Heparin Protocol Heparin Sodium (Porcine) (Heparin Sodium,Porcine 5,000 Unit/Ml Vial) 5,000 unit 80 unit/kg (5000 unit) IVPUSH PROTOCOL BOLUS PRN; Protocol PRN Reason: 80 unit/kg - Heparin Protocol Heparin Sodium/Sodium Chloride (Heparin Sodium,Porcine/1/2ns) 25,000 unit in 250 mls @ 0 mls/hr IVCONT .Q0M HERMINIO; Protocol Lactated Ringer's (Lr) 1,000 mls @ 100 mls/hr IVCONT .Q10H [facility] Mirtazapine (Mirtazapine 30 Mg Tablet) 30 mg PO BEDTIME [facility] Last Admin: 12/03/22 21:43 Dose: 30 mg Documented By: JOYA Multivitamins/Vitamin C (Multivitamin Tablet) 1 tab PO DAILY [facility] Last Admin: 12/04/22 08:54 Dose: 1 tab Documented By: LESETR Omeprazole (Omeprazole 20 Mg Capsule.Dr) 20 mg PO DAILY@0630 [facility] Last Admin: 12/04/22 05:31 Dose: 20 mg Documented By: JOYA Ondansetron HCl (Ondansetron Hcl 4 Mg/2 Ml Vial) 4 mg IVPUSH Q8H PRN PRN Reason: Nausea and Vomiting Paroxetine HCl (Paroxetine Hcl 30 Mg Tablet) 60 mg PO BEDTIME [facility] Last Admin: 12/03/22 21:43 Dose: 60 mg Documented By: JOYA Quetiapine Fumarate (Quetiapine Fumarate 100 Mg Tablet) 100 mg PO BEDTIME [facility] Last Admin: 12/03/22 21:43 Dose: 100 mg Documented By: JOYA Ropinirole HCl (Ropinirole Hcl 1 Mg Tablet) 3 mg PO BEDTIME [facility] Last Admin: 12/03/22 21:43 Dose: 3 mg Documented By: JOYA Sodium Chloride (0.9 % Sodium Chloride Flush 3 Ml Syringe) 3 ml IVFLUSH [facility] Last Admin: 12/04/22 08:55 Dose: 3 ml Documented By: LESTER Vitamin D (Cholecalciferol (Vitamin D3) 25 Mcg Tablet) 25 mcg PO DAILY [facility] Last Admin: 12/04/22 08:54 Dose: 25 mcg Documented By: LESTER Zolpidem Tartrate (Zolpidem Tartrate 5 Mg Tablet) 5 mg PO BEDTIME [facility] Last Admin: 12/03/22 21:43 Dose: 5 mg Documented By: JOYA Labs 12/04/22 13:52 12/04/22 09:15 Labs: Laboratory Results - last 24 hr 12/04/22 12/04/22 12/04/22 09:15 13:02 13:52 MCV 97.2 MCH 32.1 MCHC 33.0 RDW 14.2 Plt Count 205 MPV 9.5 Absolute Nucleated RBC 0.000 Nucleated RBC % (auto) 0.0 PT 12.1 INR 1.0 aPTT Heparin Protocol 28.5 L Estim Creat Clear Calc 41.0 Estimated GFR 44 Microbiology Microbiology Results: Microbiology 12/01/22 13:55 Blood Culture - Preliminary Blood - Venous No growth after 48 hours. 12/01/22 13:55 Blood Culture - Preliminary Blood - Venous No growth after 48 hours. Assessment and Plan (1) Colitis: Status: Acute (2) Acute gastrointestinal bleeding: Status: Acute (3) Elevated troponin I level: Status: Acute Plan 72-year-old male with history of prostate cancer s/p prostatectomy and radiation therapy, history of radiation proctitis, hypercholesterolemia, coronary artery disease s/p PCI in 2014, hypertension, anxiety, epilepsy, carotid artery stenosis s/p bilateral carotid stenting, history cerebellar hemorrhage, and restless leg syndrome to be admitted for symptomatic blood loss anemia secondary to colitis with demand ischemia. Acute symptomatic blood loss anemia due to GI bleed -H/H 10.9/32.2% (significant decrease from 10/20 with H/H 16.0/47.9%) got 1 prbc in ed. h/h :13.2/39.7 No abdominal pain or diarrhea or gross bleeding now continue moniter h/h switch to daily, ppi,Gi eval noted -recomended to cardiac workup GI workup outpatient . likely radiation proctatitis with acute GI bleed CT abd/pelvis showing subacute colitis need GI pane sent when has bm less liekly colitis -no fevers or abd pain Gi-REC Sucralfate enema possible nstmi-since elevated trops ,ekg changes and stress test abnormal hx of cad. Initiatl trop 44, repeat 40 EKG with t wave inversions anteroseptal leads ? nonspecific. Currently asymptomatic, no exertional CP. Echo noted ef seems fine Cardiology consult-added asa ,hold plavix,statin,started on iv heaprin.moniter pt/ptt protocol. Acute kidney injury- likely r/t to blood loss resuscitated with 2 L IVF and 1 unit packed red blood cells renal function slightly improving encouraged for po hydration 250 ml q6hr,avoid nephrotoxins follow BMP nephro eval appreciated recurrent falls-likely related to generalized weakness and lightheadedness related to above PT evaluation hypertension -blood pressure is soft,hold antihypertensives for now hx Epilepsy-not on anti epileptics Mood disorder-continue home meds DVT prophylaxis- SCPs Full code inpatient need:need transfer to [facility] on wednesday -for now need iv heparin /ptt moniterin.will need to go to [facility] for further cardiac workup. Time Spent With Patient Time: Total time managing care of this patient today ____ minutes. Quality Stroke Does the patient have a stroke diagnosis?: No VTE Prior VTE?: No VTE Risk Level:: Medical - moderate - high VTE Device Contraindication: N/A - Device Ordered VTE Drug Contraindication: Treatment Not Indicated
[2022-12-04 15:12] VITALS: BP 102/58; PULSE 84; RESP 14; TEMP 36.5; O2SAT 98
[2022-12-04] MEDS: Heparin Sodium,Porcine/1/2NS 25,000 UNIT/250 ML IV.SOLN 8.74 UNIT IVCONT (15:16)
[2022-12-04] MEDS: Aspirin Enteric Coated 81 MG TABLET.DR 162 MG PO (16:16)
[2022-12-04 19:33] VITALS: BP 90/62; PULSE 84; RESP 14; TEMP 36.3; O2SAT 96
[2022-12-04] MEDS: QUEtiapine Fumarate 100 MG TABLET PO (20:20)
[2022-12-04] MEDS: rOPINIRole HCL 1 MG TABLET 3 MG PO (20:20)
[2022-12-04] MEDS: Zolpidem Tartrate 5 MG TABLET PO (20:20)
[2022-12-04] MEDS: Mirtazapine 30 MG TABLET PO (20:20)
[2022-12-04] MEDS: PARoxetine HCL 30 MG TABLET 60 MG PO (20:21)
[2022-12-04] MEDS: Lactated Ringers 1,000 ML 100 ML IVCONT (20:30)
[2022-12-04 22:27] LABS: PTT Heparin Drip 48.9 SEC (53-77.9)
[2022-12-04] MEDS: Heparin Sodium,Porcine 5,000 UNIT/ML VIAL 2500 UNIT IVPUSH (22:57)
[2022-12-04 23:25] VITALS: BP 92/50; PULSE 76; RESP 18; TEMP 36.5; O2SAT 96
[2022-12-05 03:15] VITALS: BP 116/64; PULSE 74; RESP 18; TEMP 36.4; O2SAT 95
[2022-12-05] MEDS: Omeprazole 20 MG CAPSULE.DR PO (05:39)
[2022-12-05 06:24] LABS: Prothrombin Time 11.7 SEC (11.1-13.3)
[2022-12-05 06:33] LABS: Hematocrit 35.7 % (42.0-52.0); Hemoglobin 11.8 g/dl (14.0-18.0); Mean Corpuscular HGB Conc 33.1 g/dl (31.0-36.0); Mean Corpuscular Hemoglobin 31.9 pg (27.0-33.0); Mean Corpuscular Volume 96.5 fL (80.0-98.0); Mean Platelet Volume 9.9 fL (9.4-12.4); Platelet Count 174 X10*3/uL (160-400); Red Cell Distribution Width 14.2 % (11.0-16.0)
[2022-12-05 06:43] LABS: PTT Heparin Drip 161.2 SEC (53-77.9)
[2022-12-05] MEDS: Lactated Ringers 1,000 ML 100 ML IVCONT (06:54)
[2022-12-05 07:26] VITALS: BP 120/68; PULSE 84; RESP 18; TEMP 36.1; O2SAT 93
[2022-12-05] MEDS: Cyanocobalamin (Vitamin B-12) 1,000 MCG TABLET 1000 MCG PO (08:18)
[2022-12-05] MEDS: Aspirin Enteric Coated 81 MG TABLET.DR PO (08:18)
[2022-12-05] MEDS: Cholecalciferol (Vitamin D3) 25 MCG TABLET PO (08:18)
[2022-12-05] MEDS: Atorvastatin Calcium 80 MG TABLET PO (08:18)
[2022-12-05] MEDS: ALPRAZolam 0.5 MG TABLET 1 MG PO ×2 (08:18→21:45)
[2022-12-05] MEDS: Multivitamin TABLET 1 TAB PO (08:18)
[2022-12-05 08:21] LABS: Hematocrit 35.3 % (42.0-52.0); Hemoglobin 11.5 g/dl (14.0-18.0)
[2022-12-05 08:30] LABS: PTT Heparin Drip 60.9 SEC (53-77.9)
[2022-12-05 09:13] LABS: Anion Gap 11 (12-20); Blood Urea Nitrogen 30 mg/dL (9-16); Calcium 8.9 mg/dL (8.4-10.2); Carbon Dioxide 21 mmol/L (22-29); Chloride 113 mmol/L (96-108); Creatinine Clr Calc Pharmacy 48.2; Estimated Glomerular Filt Rate 57; Glucose Random 97 mg/dL (60-115); Potassium 4.3 mmol/L (3.3-5.1); Sodium 141 mmol/L (135-145)
--- NOTE | 2022-12-05 11:24 | PC.NURSE ---
Previous shift paused heparin drip that was running at a rate of 16units/kg/hr per policy based on aPTTHD of 161.2. Lab redrew aPTTHD one hour later per policy with a result of 60.9. Per policy this nurse resumed heparin drip at a rate of 12units/kg/hr, next aPTTHD to be drawn at 14:00, will continue to monitor patient.
[2022-12-05 11:32] VITALS: BP 98/53; PULSE 77; RESP 18; TEMP 36.6; O2SAT 97
--- NOTE | 2022-12-05 12:19 | HO.PM.IMPN ---
Subjective Subjective Date of Service: 12/05/22 Interval History: chests pain ,radiation proctitis Review of Systems denies any chest pain or sob or dizziness or diarrhea or grossly blood loss. Physical Exam Vital Signs: Vital Signs: Last Vital Signs Temp 97.9 F 12/05/22 11:32 Pulse 77 12/05/22 11:32 Resp 18 12/05/22 11:32 BP 98/53 L 12/05/22 11:32 Pulse Ox 97 12/05/22 11:32 O2 Del Method Room Air 12/05/22 11:32 BMI result Body Mass Index 19.7 Appearance: Alert.? Oriented X3.? not in distress. . cvs: rrr, [id number] . res: clear to auscultation ,no rhonchii or wheezing abd: no rebound or guarding ,nt, bs present. ext pulses present , no cyanosis . neuro: axo3 , nonfocal. Objective Data Active Medications Acetaminophen (Acetaminophen 325 Mg Tablet) 650 mg PO Q6H PRN PRN Reason: Pain, Mild (Pain Scale 1-3) Alprazolam (Alprazolam 0.5 Mg Tablet) 1 mg PO BID [facility] Last Admin: 12/05/22 08:18 Dose: 1 mg Documented By: RADHA Aspirin (Aspirin Enteric Coated 81 Mg Tablet.) 81 mg PO DAILY [facility] Last Admin: 12/05/22 08:18 Dose: 81 mg Documented By: RADHA Atorvastatin Calcium (Atorvastatin Calcium 80 Mg Tablet) 80 mg PO DAILY [facility] Last Admin: 12/05/22 08:18 Dose: 80 mg Documented By: RADHA Cyanocobalamin (Cyanocobalamin (Vitamin B-12) 1,000 Mcg Tablet) 1,000 mcg PO DAILY [facility] Last Admin: 12/05/22 08:18 Dose: 1,000 mcg Documented By: RADHA Heparin Sodium (Porcine) (Heparin Sodium,Porcine 5,000 Unit/Ml Vial) 2,500 unit 40 unit/kg (2500 unit) IVPUSH PROTOCOL BOLUS PRN; Protocol PRN Reason: 40 unit/kg - Heparin Protocol Last Admin: 12/04/22 22:57 Dose: 2,500 unit Documented By: TING Heparin Sodium (Porcine) (Heparin Sodium,Porcine 5,000 Unit/Ml Vial) 5,000 unit 80 unit/kg (5000 unit) IVPUSH PROTOCOL BOLUS PRN; Protocol PRN Reason: 80 unit/kg - Heparin Protocol Heparin Sodium/Sodium Chloride (Heparin Sodium,Porcine/1/2ns) 25,000 unit in 250 mls @ 0 mls/hr IVCONT .Q0M HERMINIO; Protocol Last Titration: 12/05/22 09:01 Dose: 12 units/kg/hr, 7.49 mls/hr Documented By: RADHA Co-signed By: MATT Lactated Ringer's (Lr) 1,000 mls @ 100 mls/hr IVCONT .Q10H [facility] Last Admin: 12/05/22 06:54 Dose: 100 mls/hr Documented By: TEJINDER Mirtazapine (Mirtazapine 30 Mg Tablet) 30 mg PO BEDTIME [facility] Last Admin: 12/04/22 20:20 Dose: 30 mg Documented By: TING Multivitamins/Vitamin C (Multivitamin Tablet) 1 tab PO DAILY [facility] Last Admin: 12/05/22 08:18 Dose: 1 tab Documented By: RADHA Omeprazole (Omeprazole 20 Mg Capsule.Dr) 20 mg PO DAILY@0630 [facility] Last Admin: 12/05/22 05:39 Dose: 20 mg Documented By: TEJINDER Ondansetron HCl (Ondansetron Hcl 4 Mg/2 Ml Vial) 4 mg IVPUSH Q8H PRN PRN Reason: Nausea and Vomiting Paroxetine HCl (Paroxetine Hcl 30 Mg Tablet) 60 mg PO BEDTIME [facility] Last Admin: 12/04/22 20:21 Dose: 60 mg Documented By: TING Quetiapine Fumarate (Quetiapine Fumarate 100 Mg Tablet) 100 mg PO BEDTIME [facility] Last Admin: 12/04/22 20:20 Dose: 100 mg Documented By: TING Ropinirole HCl (Ropinirole Hcl 1 Mg Tablet) 3 mg PO BEDTIME [facility] Last Admin: 12/04/22 20:20 Dose: 3 mg Documented By: TING Sodium Chloride (0.9 % Sodium Chloride Flush 3 Ml Syringe) 3 ml IVFLUSH QSHIFT [facility] Last Admin: 12/05/22 07:15 Dose: Not Given Documented By: RADHA Non-Admin Reason: IV Running Vitamin D (Cholecalciferol (Vitamin D3) 25 Mcg Tablet) 25 mcg PO DAILY [facility] Last Admin: 12/05/22 08:18 Dose: 25 mcg Documented By: RADHA Zolpidem Tartrate (Zolpidem Tartrate 5 Mg Tablet) 5 mg PO BEDTIME [facility] Last Admin: 12/04/22 20:20 Dose: 5 mg Documented By: TING Labs 12/05/22 08:02 12/05/22 08:02 Labs: Laboratory Results - last 24 hr 12/04/22 12/04/22 12/04/22 13:02 13:52 21:37 MCV 97.2 MCH 32.1 MCHC 33.0 RDW 14.2 Plt Count 205 MPV 9.5 Absolute Nucleated RBC 0.000 Nucleated RBC % (auto) 0.0 PT 12.1 INR 1.0 aPTT Heparin Protocol 28.5 L 48.9 L D Anion Gap Estim Creat Clear Calc Estimated GFR Random Glucose Calcium 12/05/22 12/05/22 12/05/22 05:58 05:58 05:58 MCV 96.5 MCH 31.9 MCHC 33.1 RDW 14.2 Plt Count 174 MPV 9.9 Absolute Nucleated RBC 0.000 Nucleated RBC % (auto) 0.0 PT 11.7 INR 1.0 aPTT Heparin Protocol 161.2 H* D Anion Gap Estim Creat Clear Calc Estimated GFR Random Glucose Calcium 12/05/22 12/05/22 08:02 08:02 MCV MCH MCHC RDW Plt Count MPV Absolute Nucleated RBC Nucleated RBC % (auto) PT INR aPTT Heparin Protocol 60.9 D Anion Gap 11 L Estim Creat Clear Calc 48.2 Estimated GFR 57 Random Glucose 97 Calcium 8.9 D Assessment and Plan (1) Colitis: Status: Acute (2) Acute gastrointestinal bleeding: Status: Acute (3) Elevated troponin I level: Status: Acute Plan 72-year-old male with history of prostate cancer s/p prostatectomy and radiation therapy, history of radiation proctitis, hypercholesterolemia, coronary artery disease s/p PCI in 2014, hypertension, anxiety, epilepsy, carotid artery stenosis s/p bilateral carotid stenting, history cerebellar hemorrhage, and restless leg syndrome to be admitted for symptomatic blood loss anemia secondary to colitis with demand ischemia. Acute symptomatic blood loss anemia due to GI bleed -H/H 10.9/32.2% (significant decrease from 10/20 with H/H 16.0/47.9%) got 1 prbc in ed. h/h :11.5 No abdominal pain or diarrhea or gross bleeding now continue moniter h/h switch to daily, ppi,Gi eval noted -recomended to cardiac workup,also added sucralfate enemas for radiation proctitis. GI workup outpatient . likely radiation proctatitis with acute GI bleed CT abd/pelvis showing subacute colitis need GI pane sent when has bm less liekly colitis -no fevers or abd pain Gi-REC Sucralfate enema possible nstemi-since elevated trops ,ekg changes and stress test abnormal hx of cad. Initiatl trop 44, repeat 40 EKG with t wave inversions anteroseptal leads ? nonspecific. Currently asymptomatic, no exertional CP. Echo noted ef seems fine Cardiology consult-added asa ,hold plavix,statin,started on iv heaprin.moniter pt/ptt protocol. Acute kidney injury- likely r/t to blood loss resuscitated with 2 L IVF and 1 unit packed red blood cells renal function slightly improving,stop ivf. encouraged for po hydration 250 ml q6hr,avoid nephrotoxins follow BMP recurrent falls-likely related to generalized weakness and lightheadedness related to above PT evaluation hypertension -blood pressure is soft,hold antihypertensives for now hx Epilepsy-not on anti epileptics Mood disorder-continue home meds DVT prophylaxis- SCPs Full code inpatient need:need transfer to [facility] on wednesday -for now need iv heparin /ptt moniterin.will need to go to [facility] for further cardiac workup.possible transfer to [facility] in [place]. Time Spent With Patient Time: Total time managing care of this patient today ____ minutes. Quality Stroke Does the patient have a stroke diagnosis?: No VTE Prior VTE?: No VTE Risk Level:: Medical - moderate - high VTE Device Contraindication: N/A - Device Ordered VTE Drug Contraindication: Treatment Not Indicated
[2022-12-05 15:02] VITALS: BP 91/54; RESP 20; TEMP 36.2; O2SAT 95
[2022-12-05 15:36] LABS: PTT Heparin Drip 60.6 SEC (53-77.9)
[2022-12-05] MEDS: Heparin Sodium,Porcine/1/2NS 25,000 UNIT/250 ML IV.SOLN 7.49 UNIT IVCONT (16:00)
[2022-12-05] MEDS: 0.9 % Sodium Chloride Flush 3 ML SYRINGE IVFLUSH (16:02)
[2022-12-05 18:06] VITALS: BP 112/64; PULSE 85
[2022-12-05 19:02] VITALS: BP 97/59; PULSE 80; RESP 20; TEMP 36.7; O2SAT 94
[2022-12-05] MEDS: Mirtazapine 30 MG TABLET PO (21:45)
[2022-12-05] MEDS: rOPINIRole HCL 1 MG TABLET 3 MG PO (21:45)
[2022-12-05] MEDS: QUEtiapine Fumarate 100 MG TABLET PO (21:45)
[2022-12-05] MEDS: PARoxetine HCL 30 MG TABLET 60 MG PO (21:45)
[2022-12-05] MEDS: Zolpidem Tartrate 5 MG TABLET PO (21:45)
[2022-12-05 21:51] LABS: PTT Heparin Drip 59.9 SEC (53-77.9)
[2022-12-06] VITALS (7 sets, daily range): BP systolic 112–139; BP diastolic 61–80; PULSE 82–90; RESP 18–20; TEMP 36.2–37; O2SAT 94–96
--- NOTE | 2022-12-06 05:43 | PC.NURSE ---
1900: Handover received from previous RN and acquired care of pt. Pt. awake, alert and oriented x4 and voices no c/o N/V, abdominal pain, dizziness/lightheadedness. BP 97/59 and SR 70-80's on cotton picker. Pt. had a smear of mushy dark red blood per rectum. Pt. inc. of stools. Heparin drip at 12 units/kg/hr. PTT within therapeutic range at 2137. Dr. Lopez notified at 2205 of rectal bleeding and pt on Heparin drip for possible NSTEMI and next CBC for 0600.. Pt. refusing Sucrulfate enema last evening-Md notified of this as well. Per MD, to cont. Heparin drip. No new orders at that time. Pt. continued to have inc. of dark red stools, increased in frequency and presence of mushy clots. Pt. denies N/V, lightheadedness/dizziness but is now c/o abd. pain across lower abd., lower back pain and pain starting in bilateral groin. VSS. See chart. At 0527, Dr. Lopez notified in these new findings and notified of increase/consistency of stools. As per Dr. Lopez, Heparin drip ON HOLD at 0531. New order for Pantoprazole 40mg IV push at 0531. CBC was ordered 05, awaiting blood to be drawn. VS at 0533: 97.2 temporal, HR 82, 138/71 with O2 sat 95% on RA.
--- NOTE | 2022-12-06 06:04 | PM.EVENT ---
Event Note Date of Service: 12/06/22 Event Note: Patient with multiple episodes of bright blood per rectum. Patient hemodynamically stable, with stable blood pressure and heart rate. Given the significant amount of bleed, will hold heparin, obtain stat CBC, PPI IV b.i.d. Time Spent With Patient Time: Total time managing care of this patient today ____ minutes.
[2022-12-06] MEDS: Pantoprazole Sodium 40 MG/10 ML VIAL IVPUSH (06:07)
[2022-12-06 07:05] LABS: MANUAL DIFF FLAG NO
[2022-12-06 07:17] LABS: Hematocrit 34.1 % (42.0-52.0); Hemoglobin 11.3 g/dl (14.0-18.0)
[2022-12-06 07:18] LABS: Basophils Percent Auto 0.4 % (0-2); Eosinophils Absolute Auto 0.2 X10*3/uL (0.0-0.4); Eosinophils Percent Auto 3.4 % (0-4); Hematocrit 33.1 % (42.0-52.0); Imm Gran Abs Auto 0.02 X10*3/uL (0.00-0.03); Imm Gran Pct Auto 0.4 % (0.0-0.4); Lymphocytes Absolute Auto 1.1 X10*3/uL (1.2-4.9); Lymphocytes Percent Auto 20.5 % (20-40); Mean Corpuscular HGB Conc 33.2 g/dl (31.0-36.0); Mean Corpuscular Hemoglobin 32.1 pg (27.0-33.0); Mean Corpuscular Volume 96.5 fL (80.0-98.0); Mean Platelet Volume 9.9 fL (9.4-12.4); Monocytes Absolute Auto 0.4 X10*3/uL (0.1-1.2); Monocytes Percent Auto 7.6 % (2-11); Neutrophils Absolute Auto 3.6 x10*3/uL (2.0-8.3); Neutrophils Percent Auto 67.7 % (45-73); Platelet Count 193 X10*3/uL (160-400); Red Blood Count 3.43 X10*6/uL (4.60-5.80); Red Cell Distribution Width 14.1 % (11.0-16.0); White Blood Count 5.3 X10*3/uL (4.8-10.8)
[2022-12-06 07:19] LABS: PTT Heparin Drip 33.2 SEC (53-77.9)
[2022-12-06] MEDS: 0.9 % Sodium Chloride Flush 3 ML SYRINGE IVFLUSH (09:35)
[2022-12-06] MEDS: Cyanocobalamin (Vitamin B-12) 1,000 MCG TABLET 1000 MCG PO (09:35)
[2022-12-06] MEDS: Multivitamin TABLET 1 TAB PO (09:35)
[2022-12-06] MEDS: Aspirin Enteric Coated 81 MG TABLET.DR PO (09:35)
[2022-12-06] MEDS: Cholecalciferol (Vitamin D3) 25 MCG TABLET PO (09:35)
[2022-12-06] MEDS: ALPRAZolam 0.5 MG TABLET 1 MG PO (09:35)
[2022-12-06] MEDS: Atorvastatin Calcium 80 MG TABLET PO (09:35)
[2022-12-06] MEDS: Sucralfate Oral Suspension 1 GM/10 ML ORAL.SUSP 2 GM PR (10:55)
--- NOTE | 2022-12-06 12:10 | PM.DS ---
DS: Providers Provider Date of Service: 12/06/22 Date of admission: 12/01/22 18:16 Date of discharge: 12/06/22 Primary care physician: Jayy Foster MD Consults: 12/01/22 18:19 Consult to Cardiology Routine Consulting Provider: [facility] Cardi[facility] Services Reason for consultation: elevated trops, exertional chest pain Consult to Gastroenterology Routine Consulting Provider: Harriett Glasgow Reason for consultation: rectal bleeding, colitis Attending physician on discharge: Alyssa Carty Discharging clinician: Alyssa Carty DS: Diagnosis Discharge Diagnosis (1) Colitis: Status: Acute (2) Acute gastrointestinal bleeding: Status: Acute (3) Elevated troponin I level: Status: Acute DS: Summary Hospital Course Hospital Course: 72-year-old male with history of prostate cancer s/p prostatectomy and radiation therapy, history of radiation proctitis, hypercholesterolemia, coronary artery disease s/p PCI in 2014, hypertension, anxiety, epilepsy, carotid artery stenosis s/p bilateral carotid stenting, history cerebellar hemorrhage, and restless leg syndrome presented to the ED earlier today for evaluation of chest pain.? He reports for last 3 days he has been experiencing exertional retrosternal chest pain which is also felt in the bilateral shoulders.? There is associated dyspnea on exertion and lightheadedness.? Reports the episodes would last for about 15-20 minutes before resolving spontaneously but felt they were worse today.? He denies any chest pain at rest.? He also tells me that over the last few days he has been experiencing copious watery diarrhea though did not experience any episodes today but has been passing gas.? There has been lower abdominal pain and associated chills but no fevers.? Denies any nausea or vomiting.? He states Wednesday and Wednesday he had 4 episodes of large volume bright red blood per rectum but has not had any bleeding in the last 2 days.? He states secondary to the lightheadedness he has had between 12-15 falls with head strike but no LOC. He takes plavix, but no anticoagulants.? He is unsure if he has had recent seizure. No sick contacts. No recent abx use. No recent travel. Denies eating any known bad foods. Lives at home with his daughter. On arrival, pt hypotensive to 79/50 and tachypneic to 28. No tachycardia or hypoxia. He is asymptomatic on arrival. He has a mild leukocytosis of 11.2.? H/H 10.9/32.2% (significant decrease from 10/20 with H/H 16.0/47.9%). Creat 1.93, BUN 46, electrolytes largely wnl.? Initial troponin 44.7, repeat 40.0.? BNP 69.? Urinalysis negative.? Stool occult blood positive and pt reports significant with rectal exam, otherwise denies rectal pain.? Head CT negative for any acute intracranial pathology.? Chest x-ray negative for any acute cardiopulmonary process.? CT abdomen/pelvis shows scattered diffuse mild colonic and rectal mural thickening without any surrounding infiltrative changes being increased from prior studies possibly representing sequela of subacute colitis, developing acute colitis would be less likely. EKG showing NSR with t wave inversions in septal and anterior leads. In the ED, given 1 L IV NS bolus and then started on 1 L IV NS at 100 mL/hour.? He was transfused 1 unit packed red blood cells given significant blood loss. Hospital course: Patient was admitted to the hospital because of acute blood loss(GI bleed) possibly related to radiation proctitis: Patient initially hemoglobin was around 11(baseline is around 14): In the ED he was given 1 PRBC. Subsequently patient hemoglobin stayed between 12 and 13. Patient did not had any episode of david bleeding in the hospital. In addition patient was started on empiric antibiotics initially due to question of mild colitis on abdominal CT scan. Seen by GI-above episode of GI bleeding thought to be related to radiation proctitis, patient has through couple episode of stool with blood last night ,stool this morning dark but no david blood or clots. Discussed with the GI thought diarrhea related to radiation proctitis-antibiotics discontinued and continue sucralfate enemas daily for 4 weeks . hb/hct stable around 11/33 ,vitals stable , no abd pain or nausea or vomiting. moniter h/h closely ,consider [facility] eval [facility]. In addition patient had chest pain on presentation, also has mild elevated troponin and EKG changes: Discussed with the GI and Cardiology- recommended for stress test which is abnormal-patient will need possible cardiac catheterization in [facility] and further management accordingly.patient was started asa,iv heparin drip started ( received almst 35 hours of drip which is stopped today due to Gi bleed as above.) discussed with cardiology-hold off heparin now and transfer patient to [facility] for [facility] and further management.plavix use on hold now until cardiac cath done ( if multivessel disease he might need cardiac surgery). Sander on ckd3: possible related to fluid loss due to diarrhae /also was on lisinopril -cr improving with po hydration and holding SIVA - cr near baseline 1.24 ( baseline 1.2 -1.3 ). continue po hydration and moniter bmp closely. plan: nstemi-need cardiac cath GIB-possible sec to radiation proctitis-continue continue sucralfate enemas daily for 4 weeks,moniter h/h closely ,consider Gi eval [facility] also. [id number] renal function and electrolytes closely. Above management discussed with the patient in detail and he understand and in agreement with above plan, time spent 50 minute. Time Spent with Patient Time attestation: Total time managing care of this patient today ____ minutes. Discharge coordination time: Greater than 30 minutes Quality: Safe Use of Opioids Does Pt have an Active Cancer Diagnosis on the Problem List?: No Quality: Stroke Does the patient have a stroke diagnosis?: No Physical Exam Vital Signs: Vital Signs: Last Vital Signs Temp 98.2 F 12/06/22 11:33 Pulse 86 12/06/22 11:33 Resp 18 12/06/22 11:33 BP 129/76 12/06/22 11:33 Pulse Ox 96 12/06/22 11:33 O2 Del Method Room Air 12/06/22 11:33 BMI result Body Mass Index 19.7 Appearance: Alert.? Oriented X3.? not in distress. . cvs: rrr, [id number] . res: clear to auscultation ,no rhonchii or wheezing abd: no rebound or guarding ,nt, bs present. ext pulses present , no cyanosis . neuro: axo3 , nonfocal. DS: Data Data Completed and Pending Labs on day of discharge: Laboratory Results - last 24 hr 12/05/22 12/05/22 12/06/22 14:51 21:17 06:48 WBC RBC Hgb Hct MCV MCH MCHC RDW Plt Count MPV Immature Gran % (Auto) Neut % (Auto) Lymph % (Auto) [place] % (Auto) Eos % (Auto) Baso % (Auto) Lymph # (Auto) [place] # (Auto) Eos # (Auto) Baso # (Auto) Abs Immat Gran (auto) Absolute Neuts (auto) Absolute Nucleated RBC Nucleated RBC % (auto) aPTT Heparin Protocol 60.6 59.9 33.2 L D 12/06/22 12/06/22 06:49 06:49 WBC 5.3 RBC 3.43 L Hgb 11.3 L 11.0 L Hct 34.1 L 33.1 L MCV 96.5 MCH 32.1 MCHC 33.2 RDW 14.1 Plt Count 193 MPV 9.9 Immature Gran % (Auto) 0.4 Neut % (Auto) 67.7 Lymph % (Auto) 20.5 [place] % (Auto) 7.6 Eos % (Auto) 3.4 Baso % (Auto) 0.4 Lymph # (Auto) 1.1 L [place] # (Auto) 0.4 Eos # (Auto) 0.2 Baso # (Auto) 0.0 Abs Immat Gran (auto) 0.02 Absolute Neuts (auto) 3.6 Absolute Nucleated RBC 0.000 Nucleated RBC % (auto) 0.0 aPTT Heparin Protocol Preliminary micro results at discharge 12/01/22 13:55 Blood Culture - Preliminary Blood - Venous No growth after 48 hours. 12/01/22 13:55 Blood Culture - Preliminary Blood - Venous No growth after 48 hours. Imaging Chest x-ray: Radiologist's impression: ITS Impressions Chest X-Ray 12/01/22 14:06 IMPRESSION: No acute cardiopulmonary process. Abdomen/Pelvis CT 12/01/22 15:37 IMPRESSION: 1. Scattered diffuse mild colonic and rectal mural thickening without surrounding infiltrative changes is nonspecific, but appears increased from the 2021 study. Given the patient's symptoms, this could represent sequelae of possible subacute colitis. Developing acute colitis would be less likely. If symptoms persist or worsen, short-term repeat CT follow-up is recommended as clinically indicated to assess for more acute change. 2. Other incidental findings detailed above without significant interval change. Head CT 12/01/22 15:37 IMPRESSION: No acute intracranial pathology. Discharge Plan Discharge Anticipated Discharge Date/Time: 12/04/22 12:34 Patient Disposition: [facility] Discharge Diagnosis: Gi bleed ,chest pain Referrals: Jayy Foster MD [Primary Care Provider] - 1 Week Discharge Medications: New omeprazole 20 mg Capsule,Delayed Release(Dr/Ec) 20 mg PO BID Qty: 30 0RF aspirin 81 mg capsule 81 mg PO DAILY Qty: 1 0RF sucralfate [Carafate] 100 mg/mL suspension 20 ml PA DAILY Qty: 1 0RF Rx Instructions: swish in mouth and swallow; use after food/drink Continued quetiapine 100 mg tablet 100 mg PO BEDTIME Qty: 90 3RF mirtazapine 30 mg tablet 30 mg PO BEDTIME 90 Days Qty: 90 1RF rosuvastatin 40 mg tablet 40 mg PO DAILY Qty: 100 2RF ropinirole 3 mg tablet 3 mg PO BEDTIME 90 Days Qty: 90 1RF alprazolam 1 mg tablet 1 mg PO BID paroxetine HCl 30 mg tablet 60 mg PO BEDTIME zolpidem 10 mg tablet 10 mg PO BEDTIME cyanocobalamin (vitamin B-12) 1,000 mcg Tablet 1,000 mcg PO DAILY cholecalciferol (vitamin D3) 25 mcg (1,000 unit) Tablet 25 mcg PO DAILY Centrum Silver Men [id number] mcg Tablet 1 tab PO DAILY Held clopidogrel 75 mg tablet 75 mg PO DAILY Qty: 90 3RF Hold Instructions: Resume on 12/15/22. hold until clear by cardiology lisinopril 20 mg tablet 20 mg PO DAILY Qty: 90 1RF Hold Instructions: Resume on 12/18/22. hold due to sander -moniter renal function and start lisinopril according to renal function Discharge Orders: Discharge Order (Routine); Ordered 12/06/22 Ordered By: Alyssa Carty Diet: Advance to usual diet Activity on Discharge: As tolerated Stand Alone Forms: Patient Portal Discharge page Care Plan Goals: Patient was admitted to the hospital because of acute blood loss(GI bleed) possibly related to radiation proctitis: Patient initially hemoglobin was around 11(baseline is around 14): In the ED he was given 1 PRBC. Subsequently patient hemoglobin stayed between 12 and 13. Patient did not had any episode of david bleeding in the hospital. In addition patient was started on empiric antibiotics initially due to question of mild colitis on abdominal CT scan. Seen by GI-above episode of GI bleeding thought to be related to radiation proctitis, patient has through couple episode of stool with blood last night ,stool this morning dark but no david blood or clots. Discussed with the GI thought diarrhea related to radiation proctitis-antibiotics discontinued and continue sucralfate enemas daily for 4 weeks . hb/hct stable around ,vitals stable , no abd pain or nausea or vomiting. moniter h/h closely ,consider [facility]. In addition patient had chest pain on presentation, also has mild elevated troponin and EKG changes: Discussed with the GI and Cardiology- recommended for stress test which is abnormal-patient will need possible cardiac catheterization in [facility] and further management accordingly.patient was started asa,iv heparin drip started ( received almst 35 hours of drip which is stopped today due to Gi bleed as above.) discussed with cardiology-hold off heparin now and transfer [facility] and further management.plavix use on hold now until cardiac cath done ( if multivessel disease he might need cardiac surgery). Sander on ckd3: possible related to fluid loss due to diarrhae /also was on lisinopril -cr improving with po hydration and holding SIVA - cr near baseline 1.24 ( baseline 1.2 -1.3 ). continue hydration and moniter bmp closely Health Concerns: as above. Plan of Treatment: as above. Assessment: as above.
--- NOTE | 2022-12-06 12:25 | MHC.CM.PN ---
Patient will be transferred to [facility] for Cardiac Catheterization.
--- NOTE | 2022-12-06 12:30 | P.PNCA_ITS ---
Subjective Subjective Date of Service: 12/06/22 Interval history: Seen examined at bedside. He is saying he had mild chest discomfort last night. He also small amount of rectal bleeding too. He is still having some oozing. Physical Exam Vital Signs: Last Vital Signs Temp 98.2 F 12/06/22 11:33 Pulse 86 12/06/22 11:33 Resp 18 12/06/22 11:33 BP 129/76 12/06/22 11:33 Pulse Ox 96 12/06/22 11:33 O2 Del Method Room Air 12/06/22 11:33 BMI result Body Mass Index 19.7 GENERAL APPEARANCE: in no acute distress, pleasant. NECK: no carotid bruit, no jugular venous distention. SKIN: no suspicious lesions, warm and dry. HEART: no murmurs, regular rate and rhythm. LUNGS: clear to auscultation bilaterally. ABDOMEN: soft, nontender. EXTREMITIES: no edema. PERIPHERAL PULSES: equal. NEUROLOGIC: No gross deficits, AAO X 3 Objective Labs and Meds 12/06/22 06:49 12/05/22 08:02 Lab results: Laboratory Results - last 24 hr 12/05/22 12/05/22 12/06/22 14:51 21:17 06:48 WBC RBC Hgb Hct MCV MCH MCHC RDW Plt Count MPV Immature Gran % (Auto) Neut % (Auto) Lymph % (Auto) [place] % (Auto) Eos % (Auto) Baso % (Auto) Lymph # (Auto) [place] # (Auto) Eos # (Auto) Baso # (Auto) Abs Immat Gran (auto) Absolute Neuts (auto) Absolute Nucleated RBC Nucleated RBC % (auto) aPTT Heparin Protocol 60.6 59.9 33.2 L D 12/06/22 12/06/22 06:49 06:49 WBC 5.3 RBC 3.43 L Hgb 11.3 L 11.0 L Hct 34.1 L 33.1 L MCV 96.5 MCH 32.1 MCHC 33.2 RDW 14.1 Plt Count 193 MPV 9.9 Immature Gran % (Auto) 0.4 Neut % (Auto) 67.7 Lymph % (Auto) 20.5 [place] % (Auto) 7.6 Eos % (Auto) 3.4 Baso % (Auto) 0.4 Lymph # (Auto) 1.1 L [place] # (Auto) 0.4 Eos # (Auto) 0.2 Baso # (Auto) 0.0 Abs Immat Gran (auto) 0.02 Absolute Neuts (auto) 3.6 Absolute Nucleated RBC 0.000 Nucleated RBC % (auto) 0.0 aPTT Heparin Protocol Progress Note: A&P Assessment and plan (1) Unstable angina: Status: Acute Plan Pleasant 72-year-old gentleman with radiation proctitis and chest pain with abn ormal stress test. He had ST depressions in 1 minute on treadmill with AVR elevation and I am suspecting multivessel disease at this point. He was on Plavix per bilateral carotid stents done by Dr. Almazan in the past. Plavix has been held and has been started on aspirin at this point. He continues to get some small amount of rectal bleeding at this point. This is due to radiation proctitis. He has high-risk stress tests and cannot get sedated safely at this point. I had a detailed discussion with the patient. His heparin has been held. He needs diagnostic angiogram to start with to see if he has surgical disease. If he truly has surgical disease then CABG should be pursued. On the other hand if he has single-vessel disease which is critical then he may need PCI and after PCI can get colonoscopy with cauterization. Please continue the sucralfate and was daily for the next 4 weeks. Will sign out to [facility] cardiovascular associates at [facility]. Thank you for allowing me to participate in the care of your patient. Please feel free to contact me if you have any questions. Time Spent With Patient Time: Total time managing care of this patient today ____ minutes. Progress Note: Quality Stroke Does the patient have a stroke diagnosis?: No Procedures Date of Service Date of Service: 12/06/22
--- NOTE | 2022-12-06 14:32 | PC.NURSE ---
Report called at [facility], this Nurse spoke to primary Nurse at [facility]; Mirian. pt. is ready for discharge pending transportation.
== END 2022-12-06 16:15 | disposition short-term general hospital (02) | DRG 393 ==
LOC: HO.ED 17:42 → HO.EDOVER 18:30 → HO.IMC 19:16
PROVIDERS: Internal Medicine; Admitting Provider Physician Assistant; Emergency Provider Emergency Medicine Emergency Medical Services; PCP Internal Medicine; Visit Provider Internal Medicine
DX: K62.7 Radiation proctitis (principal); I21.A1 Myocardial infarction type 2; D62 Acute posthemorrhagic anemia; N17.9 Acute kidney failure, unspecified; K62.5 Hemorrhage of anus and rectum; R29.6 Repeated falls; I95.9 Hypotension, unspecified; Z91.81 History of falling; G40.909 Epilepsy, unspecified, not intractable, without status epilepticus; E78.00 Pure hypercholesterolemia, unspecified; N18.30 Chronic kidney disease, stage 3 unspecified; Z20.822 Contact with and (suspected) exposure to COVID-19; Y84.2 Radiological procedure and radiotherapy as the cause of abnormal reaction of the patient, or of later complication, without mention of misadventure at the time of the procedure; Z85.46 Personal history of malignant neoplasm of prostate; Z92.3 Personal history of irradiation; Z90.79 Acquired absence of other genital organ(s); Z87.891 Personal history of nicotine dependence; Z79.82 Long term (current) use of aspirin; Z79.899 Other long term (current) drug therapy
CPT/HCPCS: 36415; 70450; 71045; 74176; 80048; 80053; 80307; 81003; 82272; 82565; 83605; 83690; 83880; 84484; 84520; 85014; 85018; 85025; 85027; 85610; 85730; 86850; 86900; 86901; 86923; 87040; 87635; 93005; 93306; 93350; 97161; 99285; J0696; J1643; J1940; P9016; Q9957

== ENCOUNTER → 2022-12-01 13:16 | Outpatient (BNV) | payer MEDICARE, SELFPAY | PROVIDERS: Emergency Provider Emergency Medicine Emergency Medical Services; PCP Internal Medicine; Visit Provider Internal Medicine Cardiovascular Disease | DX: R94.31 Abnormal electrocardiogram [ECG] [EKG] (principal) | CPT/HCPCS: 93010 ==

== ENCOUNTER 2022-12-01 18:16 | Outpatient (BNV) | payer MEDICARE, SELFPAY | END 2022-12-04 11:45 | PROVIDERS: Admitting Provider Physician Assistant; Emergency Provider Emergency Medicine Emergency Medical Services; PCP Internal Medicine; Visit Provider Internal Medicine Cardiovascular Disease | DX: R06.02 Shortness of breath (principal); I49.3 Ventricular premature depolarization | CPT/HCPCS: 93350 ==

== ENCOUNTER 2022-12-01 18:16 | Outpatient (BNV) | payer MEDICARE, SELFPAY | END 2022-12-02 07:00 | PROVIDERS: Admitting Provider Physician Assistant; Emergency Provider Emergency Medicine Emergency Medical Services; PCP Internal Medicine; Visit Provider Internal Medicine Cardiovascular Disease | DX: R07.9 Chest pain, unspecified (principal) | CPT/HCPCS: 93010; 93306 ==

== ENCOUNTER → 2022-12-01 18:16 | Outpatient (BNV) | payer MEDICARE, SELFPAY | PROVIDERS: Admitting Provider Physician Assistant; Emergency Provider Emergency Medicine Emergency Medical Services; PCP Internal Medicine; Visit Provider Internal Medicine | DX: K52.9 Noninfective gastroenteritis and colitis, unspecified (principal); K92.2 Gastrointestinal hemorrhage, unspecified; D64.9 Anemia, unspecified; R77.8 Other specified abnormalities of plasma proteins | CPT/HCPCS: 99232 ==

== ENCOUNTER → 2022-12-01 18:16 | Outpatient (BNV) | payer MEDICARE, SELFPAY | PROVIDERS: Admitting Provider Physician Assistant; Emergency Provider Emergency Medicine Emergency Medical Services; PCP Internal Medicine; Visit Provider Physician Assistant | DX: K52.9 Noninfective gastroenteritis and colitis, unspecified (principal); K92.2 Gastrointestinal hemorrhage, unspecified; R77.8 Other specified abnormalities of plasma proteins | CPT/HCPCS: 99223; 99231; 99232; 99233; 99239; 99499 ==

== ENCOUNTER → 2022-12-01 18:16 | Outpatient (BNV) | payer MEDICARE, SELFPAY | PROVIDERS: Admitting Provider Physician Assistant; Emergency Provider Emergency Medicine Emergency Medical Services; PCP Internal Medicine; Visit Provider Internal Medicine Cardiovascular Disease | DX: I20.0 Unstable angina (principal) | CPT/HCPCS: 99221; 99223; 99231; 99232; 99233 ==

== ENCOUNTER 2023-01-02 18:50 | Inpatient (IN) | payer MEDICARE, SELFPAY ==
[2023-01-02] VITALS (7 sets, daily range): BP systolic 75–137; BP diastolic 50–71; PULSE 73–112; RESP 16–30; TEMP 36.7–37.2; O2SAT 97–100; BMI 19.6
--- NOTE | 2023-01-02 | ECG_ITS ---
Test Reason : GI Blood Pressure : / mmHG Vent. Rate : 100 BPM Atrial Rate : 100 BPM P-R Int : 154 ms QRS Dur : 074 ms QT Int : 390 ms P-R-T Axes : 084 057 083 degrees QTc Int : 503 ms Normal sinus rhythm Prolonged QT Abnormal ECG When compared with ECG of 02-DEC-2022 08:04, ST no longer depressed in Lateral leads T wave inversion no longer evident in Anterolateral leads Referred By: Generic ED Physician Electronically Signed By:JOSSE SANTAMARIA
--- NOTE | ~2023-01-02 | XR_ITS ---
EXAMINATION: XR CHEST CLINICAL INFORMATION: Cough and wheezing COMPARISON: 12/01/2022 TECHNIQUE: Frontal view of the chest was obtained. FINDINGS: The cardiomediastinal silhouette is normal. The lung mac are hyperinflated and appear to be hyperlucent. There is no focal lung consolidation or pleural effusion. The bony structures and soft tissues are unremarkable. XR/XR chest 1V IMPRESSION: Emphysema/COPD. No focal consolidation or pleural effusion.
--- NOTE | ~2023-01-02 | CT_ITS ---
EXAMINATION: CT ABDOMEN AND PELVIS WITHOUT CONTRAST CLINICAL INFORMATION: Pain COMPARISON: None available. TECHNIQUE: Multidetector volumetric imaging was performed from the superior aspect of the liver through the pubic symphysis. Sagittal and coronal reformatted images were obtained on the technologist's workstation. This CT examination was performed using dose optimization techniques as appropriate, variously including the following: *Automated exposure control *Adjustment of mA and/or kV according to patient size (this includes techniques or standardized protocols for targeted exams where dose is matched to indication/reason for exam; i.e. extremities or head) *Use of iterative reconstruction technique DLP: 375 mGy-cm FINDINGS: LUNG BASES: There is scarring and/or subsegmental atelectasis at the right lung base. LIVER, GALLBLADDER, AND BILIARY TREE: The liver is normal in size, shape, and attenuation. No focal hepatic lesion or biliary ductal dilatation is present. The gallbladder is unremarkable with no evidence of radiopaque gallstones, gallbladder wall thickening, or obvious pericholecystic inflammatory changes. PANCREAS: Unremarkable. SPLEEN: Unremarkable. ADRENAL GLANDS: Unremarkable. KIDNEYS AND URETERS: The kidneys are normal in size, shape, and attenuation. No hydronephrosis, hydroureter, or calculi seen. No perinephric stranding. BLADDER: Unremarkable. GASTROINTESTINAL TRACT: There is retained stool throughout the colon. There is distal rectal/anal thickening. ABDOMINAL WALL: There is a small umbilical hernia containing fat. LYMPH NODES: Normal. VASCULAR: There is moderate atherosclerotic plaque of the abdominal aorta with an infrarenal abdominal aortic bulge measuring up to 2.5 cm. PELVIC VISCERA: Unremarkable. OSSEOUS STRUCTURES: There is a partially healed posterior lateral right ninth rib fracture. CT/CT abdomen pelvis wo IV con IMPRESSION: Distal rectal/anal thickening suggesting proctocolitis. Retained stool throughout the colon. Fleischner guidelines were followed.
[2023-01-02 19:11] LABS: MANUAL DIFF FLAG NO
[2023-01-02 19:14] LABS: Basophils Percent Auto 0.3 % (0-2); Eosinophils Absolute Auto 0.2 X10*3/uL (0.0-0.4); Eosinophils Percent Auto 1.3 % (0-4); Hematocrit 36.7 % (42.0-52.0); Hemoglobin 12.3 g/dl (14.0-18.0); Imm Gran Abs Auto 0.05 X10*3/uL (0.00-0.03); Imm Gran Pct Auto 0.4 % (0.0-0.4); Lymphocytes Absolute Auto 1.5 X10*3/uL (1.2-4.9); Lymphocytes Percent Auto 12.4 % (20-40); Mean Corpuscular HGB Conc 33.5 g/dl (31.0-36.0); Mean Corpuscular Hemoglobin 31.8 pg (27.0-33.0); Mean Corpuscular Volume 94.8 fL (80.0-98.0); Mean Platelet Volume 9.7 fL (9.4-12.4); Monocytes Absolute Auto 0.8 X10*3/uL (0.1-1.2); Monocytes Percent Auto 6.4 % (2-11); Neutrophils Absolute Auto 9.5 x10*3/uL (2.0-8.3); Neutrophils Percent Auto 79.2 % (45-73); Platelet Count 262 X10*3/uL (160-400); Red Blood Count 3.87 X10*6/uL (4.60-5.80); Red Cell Distribution Width 13.9 % (11.0-16.0)
--- NOTE | 2023-01-02 19:20 | PC.NURSE ---
patient refusing occult stool, verbal order from MD to cancel
--- NOTE | 2023-01-02 19:22 | ED_ITS ---
HPI - GI Bleed General Chief complaint: GI Bleed Stated complaint: diarrhea x1week, bright red blood, Hypotensive Time Seen by Provider: 01/02/23 19:10 History of Present Illness HPI Narrative: 72-year-old male with history of prostate cancer s/p prostatectomy and radiation therapy, history of radiation proctitis, hypercholesterolemia, coronary artery disease s/p PCI in 2014, hypertension, anxiety, epilepsy, carotid artery stenosis s/p bilateral carotid stenting, history cerebellar hemorrhage, and restless leg syndrome patient had a history of GI bleed. Last admission was in November. Complaining of bright red blood per rectum again x3. Denies any history of congestive heart failure. Positive previous history of ID. Positive previous history of stents. Patient felt weak tired. Never passed out. The stool was noted to be bright red very similar to previous episodes. This time there is no chest pain. Related Data Home Medications Medication Instructions Recorded Confirmed alprazolam 1 mg tablet 1 mg PO BID 12/01/22 12/01/22 cholecalciferol (vitamin D3) 25 25 mcg PO DAILY 12/01/22 12/01/22 mcg (1,000 unit) tablet cyanocobalamin (vitamin B-12) 1,000 mcg PO DAILY 12/01/22 12/01/22 1,000 mcg tablet [id number] 300 mcg-K 60 1 tab PO DAILY 12/01/22 12/01/22 mcg-lycop 600 mcg-lutein 300 mcg tablet (Centrum Silver Men) paroxetine HCl 30 mg tablet 60 mg PO BEDTIME 12/01/22 12/01/22 Previous Rx's Medication Instructions Recorded quetiapine 100 mg tablet 100 mg PO BEDTIME #90 tabs 01/23/22 clopidogrel 75 mg tablet 75 mg PO DAILY #90 tabs 05/16/22 lisinopril 20 mg tablet 20 mg PO DAILY #90 tabs 09/12/22 mirtazapine 30 mg tablet 30 mg PO BEDTIME 90 days #90 tabs 09/17/22 rosuvastatin 40 mg tablet 40 mg PO DAILY #100 tabs 10/21/22 ropinirole 3 mg tablet 3 mg PO BEDTIME 90 days #90 tabs 11/18/22 aspirin 81 mg capsule 81 mg PO DAILY #1 cap 12/04/22 omeprazole 20 mg capsule,delayed 20 mg PO BID #30 caps 12/04/22 release sucralfate 100 mg/mL oral [address] DAILY #1 mL 12/06/22 suspension (Carafate) zolpidem 10 mg tablet 10 mg PO BEDTIME PRN insomnia #30 12/14/22 tabs alprazolam 1 mg tablet 1 mg PO BID PRN anxiety 30 days 12/29/22 #60 tabs Allergies Allergy/AdvReac Type Severity Reaction Status Date / Time zolpidem AdvReac Unknown sleepwalkin Verified 10/20/22 10:21 g Review of Systems 2 Review of Systems: Positive generalized malaise Yes all other systems are reviewed and are negative [facility] Past Medical History Medical History Anal discharge Depression Anxiety Prostate cancer Restless legs syndrome Epilepsy 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 Degenerative disc disease, cervical Impaired fasting glucose Pure hypercholesterolemia Bilateral carotid artery stenosis Benign essential hypertension Surgical History Hx of colonoscopy History of common carotid artery stent placement H/O radical prostatectomy History of inguinal hernia repair Family History Family History Father Cancer Mother Chronic mental illness Son In good health Daughter In good health Social History Social History Household Members: Children and Other Housing: House Do you presently have visiting nurse or other home services: No Alcohol intake: never Patient Tobacco Use Status: Former Tobacco user Quit Date: quit 7 yrs ago Tobacco use type: Cigarette Smoked in Last 30 Days: No e-Cigarette/Vaping Use: Never Used Second Hand Smoke Exposure: No Use of substances other than those prescribed or required for medical reasons: Yes Substance Use Type: Marijuana Substance Use Frequency: Monthly Advance Directives: No Advance Directives Information Provided: No service: No Current occupational status: retired Cognitive needs: No Hearing needs: No Vision needs: Yes Physical Exam 2 Vital Signs: Vital Signs: Last Vital Signs Temp 98.8 F 01/02/23 20:25 Pulse 93 01/02/23 20:53 Resp 28 H 01/02/23 20:53 BP 114/68 01/02/23 20:53 Pulse Ox 100 01/02/23 20:53 O2 Del Method Room Air 01/02/23 20:53 BMI result Body Mass Index 19.6 Appearance: Alert. Oriented X3. No acute distress. Eyes: Pupils equal, round and reactive to light. ENT: Pharynx normal. Neck: Normal inspection. Neck supple. No lymph nodes noted. No crepitus CVS: Normal heart rate and rhythm. Pulses normal. Normal S1 and S2 Respiratory: No respiratory distress. Breath sounds normal. No Wheezing. No rales Abdomen: Soft and nontender. No rigidity. No distention. good BS x4 Rectal exam patient refuse Skin: Skin warm and dry. Normal skin color. Normal skin turgor. Extremities: No lower extremity edema. Neurovascular intact to all extremities. No Lacerations. No Rash Neuro: Oriented X 3. No motor deficit. No sensory deficit. Moving all extermities. No slurred speech Medications Administered Generic Name Dose Route Start Last Admin Trade Name Freq PRN Reason Stop Dose Admin Sodium Chloride 1,000 mls @ 999 mls/hr 01/02/23 20:15 01/02/23 20:25 Ns IV 01/02/23 21:15 999 mls/hr .Q1H1M HERMINIO Administration Medical Decision Making Medical Decision Making MDM Narrative: Patient's previous record reviewed. Had a colonoscopy done about a year ago. At that time it shows diverticulosis. Also had a history of prostatectomy. History of having lower GI bleed secondary to radiation prostatitis. Likely the same causing the bright red blood per rectum. Will check patient's hemoglobin. Electrolytes will be checked. My interpretation of patient's EKG showed a sinus rhythm heart rate is [address] CT QRS was normal. QTC was slightly prolonged at 500. Will likely require admission for further evaluation. Patient is currently not on any blood thinners. He was on Plavix previously for his stents. He has not been taking them for the last 2 weeks. Patient well appearing no acute distress. Given 2 L of IV fluids. Hemoglobin is 12 today. Not on Plavix anymore. Blood pressure recover nicely. The last blood pressure is 130/70. Patient did have multiple bouts of 80/40. In no distress. Case discussed with the hospitalist team. Will admit for further evaluation. Differential Diagnosis Differential Diagnoses: The differential diagnosis associated with the presentation includes Lower GI bleed secondary to diverticulitis, radiation proctitis, Admission/Observation Consideration of admission/observation: Escalation of care including admission/observation considered Consult Healthcare Provider Management of the patient was discussed with: Hospitalist Lab Data MDM Lab Attestation statement: I reviewed the patient's lab results. 01/02/23 19:07 01/02/23 19:07 Labs: Lab Results 01/02/23 01/02/23 01/02/23 Range/Units 19:07 19:09 20:17 WBC 12.0 H (4.8-10.8) X10*3/uL RBC 3.87 L (4.60-5.80) X10*6/uL Hgb 12.3 L (14.0-18.0) g/dl Hct 36.7 L (42.0-52.0) % MCV 94.8 (80.0-98.0) fL MCH 31.8 (27.0-33.0) pg MCHC 33.5 (31.0-36.0) g/dl RDW 13.9 (11.0-16.0) % Plt Count 262 D (160-400) X10*3/uL MPV 9.7 (9.4-12.4) fL Immature Gran % (Auto) 0.4 (0.0-0.4) % Neut % (Auto) 79.2 H (45-73) % Lymph % (Auto) 12.4 L (20-40) % [place] % (Auto) 6.4 (2-11) % Eos % (Auto) 1.3 (0-4) % Baso % (Auto) 0.3 (0-2) % Lymph # (Auto) 1.5 (1.2-4.9) X10*3/uL [place] # (Auto) 0.8 (0.1-1.2) X10*3/uL Eos # (Auto) 0.2 (0.0-0.4) X10*3/uL Baso # (Auto) 0.0 (0.0-0.2) X10*3/uL Abs Immat Gran (auto) 0.05 H (0.00-0.03) X10*3/uL Absolute Neuts (auto) 9.5 H (2.0-8.3) x10*3/uL Absolute Nucleated RBC 0.000 (0.0-0.012) X10*3/uL Nucleated RBC % (auto) 0.0 (0.0-0.2) /100WBC PT 10.6 L (11.1-13.3) SEC INR 0.9 (0.9-1.1) Sodium 141 (135-145) mmol/L Potassium 4.4 (3.3-5.1) mmol/L Chloride 109 H (96-108) mmol/L Carbon Dioxide 18 L (22-29) mmol/L Anion Gap 18 (12-20) BUN 33 H (9-16) mg/dL Creatinine 1.76 H (0.5-1.4) mg/dL Estim Creat Clear Calc 36.7 Estimated GFR 38 Random Glucose 110 (60-115) mg/dL Calcium 9.9 D (8.4-10.2) mg/dL Total Bilirubin 0.6 (0.0-1.0) mg/dL AST 30 (5-37) U/L ALT 16 (0-40) U/L Alkaline Phosphatase 83 (39-117) U/L Troponin I High Sens 17.8 D (<3.5-35.0) ng/L Total Protein 6.8 (6.5-8.0) g/dL Albumin 3.9 (3.5-5.0) g/dL Blood Type B Positive Antibody Screen NEGATIVE Independent Interpretation I performed an independent interpretation of an: EKG Interpretation: Sinus heart rate is 100 CT QRS within normal limits. QTC slightly prolonged at 500. There is no acute ST segment elevation. External Record Review External record reviewed: Inpatient record Chronic Conditions Prostate cancer, status post radical prostatectomy history of radiation induced proctitis history of diverticulosis. History of coronary artery disease Critical Care Time Critical Care Time Critical Care Time: Yes Total Critical Care Time: 40 Attestation: I have personally provided 40 minutes of critical care time exclusive of time spent on separately billable procedures. Time includes review of lab data, radiology results, discussion with consultants, and monitoring for potential decompensation. Interventions were performed as documented above Discharge Plan Discharge Clinical Impression: Lower gastrointestinal hemorrhage Patient Disposition: Admitted As Inpatient Prescriptions: No Action quetiapine 100 mg tablet 100 mg PO BEDTIME Qty: 90 3RF clopidogrel 75 mg tablet 75 mg PO DAILY Qty: 90 3RF Hold Instructions: Resume on 12/15/22. hold until clear by cardiology lisinopril 20 mg tablet 20 mg PO DAILY Qty: 90 1RF Hold Instructions: Resume on 12/18/22. hold due to black -moniter renal function and start lisinopril according to renal function mirtazapine 30 mg tablet 30 mg PO BEDTIME 90 Days Qty: 90 1RF rosuvastatin 40 mg tablet 40 mg PO DAILY Qty: 100 2RF ropinirole 3 mg tablet 3 mg PO BEDTIME 90 Days Qty: 90 1RF zolpidem 10 mg tablet 10 mg PO BEDTIME PRN (Reason: insomnia) Qty: 30 1RF alprazolam 1 mg tablet 1 mg PO BID PRN (Reason: anxiety) 30 Days Qty: 60 0RF alprazolam 1 mg tablet 1 mg PO BID paroxetine HCl 30 mg tablet 60 mg PO BEDTIME cyanocobalamin (vitamin B-12) 1,000 mcg Tablet 1,000 mcg PO DAILY cholecalciferol (vitamin D3) 25 mcg (1,000 unit) Tablet 25 mcg PO DAILY Centrum Silver Men [id number] mcg Tablet 1 tab PO DAILY omeprazole 20 mg Capsule,Delayed Release(Dr/Ec) 20 mg PO BID Qty: 30 0RF aspirin 81 mg capsule 81 mg PO DAILY Qty: 1 0RF sucralfate [Carafate] 100 mg/mL suspension [address] DAILY Qty: 1 0RF Rx Instructions: swish in mouth and swallow; use after food/drink
[2023-01-02 19:29] LABS: Alanine Aminotransferase 16 U/L (0-40); Albumin Level 3.9 g/dL (3.5-5.0); Alkaline Phosphatase 83 U/L (39-117); Anion Gap 18 (12-20); Aspartate Amino Transferase 30 U/L (5-37); Bilirubin Total 0.6 mg/dL (0.0-1.0); Blood Urea Nitrogen 33 mg/dL (9-16); Calcium 9.9 mg/dL (8.4-10.2); Carbon Dioxide 18 mmol/L (22-29); Chloride 109 mmol/L (96-108); Creatinine Clr Calc Pharmacy 36.7; Estimated Glomerular Filt Rate 38; Glucose Random 110 mg/dL (60-115); Potassium 4.4 mmol/L (3.3-5.1); Sodium 141 mmol/L (135-145); Total Protein 6.8 g/dL (6.5-8.0)
[2023-01-02 19:57] LABS: INTERNATIONAL NORM RATIO 0.9 (0.9-1.1); Prothrombin Time 10.6 SEC (11.1-13.3)
[2023-01-02] MEDS: 0.9 % Sodium Chloride 1,000 ML 999 ML IV (20:25)
--- NOTE | 2023-01-02 20:35 | MHC.EDTECH ---
Pt resting in bed Respirations even and unlabored No distress noted Plan of care is ongoing
[2023-01-02 20:41] LABS: Troponin-I High Sensitivity 17.8 ng/L (<3.5-35.0)
--- NOTE | 2023-01-02 20:46 | P.HPHOSP_ITS ---
<Statement entered by Marci Goldstein MD - 01/03/23 22:49> I agree with KOURTNEY saxena, AP. pt seen and examined at bedside. Pt will be admittd for evaluatin of GI bleed likely 2/2 radiation proctitis. Pt will also be given abx. his cxr negative. denies any hx copd. but xray showed emphysema. for full h&P see below History of Present Illness Date of Service: 01/02/23 Attending physician on admission: Marci Goldstein Chief Complaint: Lower GI bleed Pt is a 72-year-old male with a PMH significant for?prostate cancer s/p prostatectomy and radiation therapy for 8 weeks, hx of radiation proctitis, CAD s/p PCI in 2014, carotid artery stenosis s/p bilateral carotid stenting, hx of cerebral hemorrhage, epilepsy, HLD, HTN, restless leg syndrome, and anxiety who presents to the ED for evaluation of episodes of bright red blood per rectum earlier today. Patient states that he woke up this morning with diarrhea that continued throughout the day. Reports having 10+ episodes of diarrhea. Reports that during one of these episodes he felt a ?gush? and then produced a large amount of bright red blood per rectum. Had a total of 3 episodes of hematochezia within 1 hour. Patient also notes lower back pain associated with episodes of diarrhea. Also reports lightheadedness and dizziness for the past few days. Has been experiencing a cough and mildly increased shortness of breath. Patient also states that he has been losing weight lately despite eating more than normal. He is unsure of the amount of unintentional weight loss, but his pants continue to fit him less and less well. Denies nausea, vomiting, abdominal pain. No fever. Denies chest pain/pressure, palpitations. Of note, patient presented with similar symptoms to the ED one month prior on 12/01/2022 through 12/06/2022. Patient reports he had similar episodes of diarrhea that preceded episodes of david red blood per rectum. The 1 major difference he noted his that he is not experiencing chest pain or pressure today. Of note, patient no longer on Plavix after last admission. Discharge instructions state patient was supposed to be taking daily sulcrafate enemas for 4 weeks, however patient reports he was never told this and has not performed any enemas since discharge. In the ED today patient had 3 more episodes of diarrhea, though only one contained any david red blood. In the ED patient was afebrile but tachycardic up to 109 and tachypneic up to 30. Was initially hypotensive as low as 82/50, but BP improved to 114/68 after administration of IVF. Labs were significant for minor leukocytosis of 12.0, stable H&H 12.3/36.7, creatinine 1.76 (up from 1.24 at time of discharge on 12/05/2022), initial troponin 17.8. Hepatic function WNL. EKG demonstrated normal sinus rhythm with prolonged QTc of 503 and no evidence of ST elevations or depressions. Pt was treated with 1 L IVF. Pt will be admitted to the hospital for treatment further evaluation of lower GI bleed likely secondary to radiation proctitis. Review of Systems 2 Review of Systems: Diarrhea x1 day Hematochezia x1 day Lightheadedness, dizziness Lower back pain Unintentional weight loss Nonproductive cough, minor SOB Increased fatigue Denies chest pain/pressure, palpitations Denies fever, nausea, vomiting, abdominal pain Yes all other systems are reviewed and are negative [facility] Medical History Anal discharge Depression Anxiety Prostate cancer Restless legs syndrome Epilepsy 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 Degenerative disc disease, cervical Impaired fasting glucose Pure hypercholesterolemia Bilateral carotid artery stenosis Benign essential hypertension Family History Father Cancer Mother Chronic mental illness Son In good health Daughter In good health Surgical History Hx of colonoscopy History of common carotid artery stent placement H/O radical prostatectomy History of inguinal hernia repair Social History Household Members: Children and Other Housing: House Do you presently have visiting nurse or other home services: No Alcohol intake: never Patient Tobacco Use Status: Former Tobacco user Quit Date: quit 7 yrs ago Tobacco use type: Cigarette Smoked in Last 30 Days: No e-Cigarette/Vaping Use: Never Used Second Hand Smoke Exposure: No Use of substances other than those prescribed or required for medical reasons: Yes Substance Use Type: Marijuana Substance Use Frequency: Monthly Advance Directives: No Advance Directives Information Provided: No Nutrition Risks: No Nutritional Risk service: No Current occupational status: retired Cognitive needs: No Hearing needs: No Vision needs: Yes Meds Allergies Allergy/AdvReac Type Severity Reaction Status Date / Time zolpidem AdvReac Unknown sleepwalkin Verified 10/20/22 10:21 g Active Medications: Current Medications Sodium Chloride (Ns) 1,000 mls @ 999 mls/hr IV .Q1H1M HERMINIO Stop: 01/02/23 21:15 Last Admin: 01/02/23 20:25 Dose: 999 mls/hr Home Medications Medication Instructions Recorded Confirmed Last Taken Type alprazolam 1 mg tablet 1 mg PO BID 12/01/22 01/03/23 12/01/22 History cholecalciferol (vitamin D3) 25 25 mcg PO DAILY 12/01/22 01/03/23 12/01/22 History mcg (1,000 unit) tablet cyanocobalamin (vitamin B-12) 1,000 mcg PO DAILY 12/01/22 01/03/23 12/01/22 History 1,000 mcg tablet [id number] 300 mcg-K 60 1 tab PO DAILY 12/01/22 01/03/23 12/01/22 History mcg-lycop 600 mcg-lutein 300 mcg tablet (Centrum Silver Men) paroxetine HCl 30 mg tablet 60 mg PO BEDTIME 12/01/22 01/03/23 11/30/22 History metoprolol tartrate 25 mg tablet 25 mg PO BID 01/03/23 01/03/23 Unknown History Physical Exam 2 Vital Signs and Narrative: Vital Signs: Last Vital Signs Temp 98.8 F 01/02/23 20:25 Pulse 93 01/02/23 20:25 Resp 28 H 01/02/23 20:25 BP 137/66 01/02/23 20:25 Pulse Ox 100 01/02/23 20:25 O2 Del Method Room Air 01/02/23 20:25 BMI result Body Mass Index 19.6 Constitutional: Alert, in no acute distress. Mental Status: Oriented to person, place and time. Eyes: Pupils are equal, round, and reactive to light. Ear, Nose, and Throat: Oropharynx clear, mucous membranes moist. Ears and nose without deformities. Trachea midline. Respiratory: Diffuse bilateral rhonchi. Pt audibly wheezing. Wet sounding, nonproductive cough noted Cardiovascular: S1, S2 regular. No murmurs, rubs, or gallops. Gastrointestinal: Abdomen soft, non-tender, non-distended. Normal bowel sounds. Neurologic: Cranial nerves II-XII are grossly intact bilaterally. No focal neurological deficits. Moves all extremities spontaneously. Skin: Warm, dry. Musculoskeletal: No cyanosis or clubbing. Extremities: No edema. Psychiatric: Normal mood and affect. Results Labs 01/03/23 10:12 01/03/23 05:11 Labs: Laboratory Results - last 24 hr 01/02/23 01/02/23 19:07 19:09 MCV 94.8 MCH 31.8 MCHC 33.5 RDW 13.9 Plt Count 262 D MPV 9.7 Immature Gran % (Auto) 0.4 Neut % (Auto) 79.2 H Lymph % (Auto) 12.4 L [place] % (Auto) 6.4 Eos % (Auto) 1.3 Baso % (Auto) 0.3 Lymph # (Auto) 1.5 [place] # (Auto) 0.8 Eos # (Auto) 0.2 Baso # (Auto) 0.0 Abs Immat Gran (auto) 0.05 H Absolute Neuts (auto) 9.5 H Absolute Nucleated RBC 0.000 Nucleated RBC % (auto) 0.0 PT 10.6 L INR 0.9 Anion Gap 18 Estim Creat Clear Calc 36.7 Estimated GFR 38 Random Glucose 110 Calcium 9.9 D Total Bilirubin 0.6 AST 30 ALT 16 Alkaline Phosphatase 83 Total Protein 6.8 Albumin 3.9 Blood Type B Positive Antibody Screen NEGATIVE Assessment and Plan (1) Acute gastrointestinal bleeding: Status: Acute (2) Acute hypotension: Status: Acute (3) MARKUS (acute kidney injury): Status: Acute Plan Pt is a 72-year-old male with a PMH significant for?prostate cancer s/p prostatectomy and radiation therapy for 8 weeks, hx of radiation proctitis, CAD s/p PCI in 2014, carotid artery stenosis s/p bilateral carotid stenting, hx of cerebral hemorrhage, epilepsy, HLD, HTN, restless leg syndrome, and anxiety who presents to the ED for evaluation of episodes of bright red blood per rectum earlier today. Pt will be admitted to the hospital for treatment further evaluation of lower GI bleed likely secondary to radiation proctitis. Acute symptomatic blood loss anemia due to GI bleed Patient with 3+ episodes of large amounts of bright red blood per rectum; H&H stable at 12.3/36.7 Patient with similar presentation to prior admission on 12/01/2022-12/06/2022 Likely secondary to radiation proctitis Patient non compliant with discharge instructions from last discharge for sucralfate enemas daily x4 weeks Will get CT of abdomen and pelvis Will cover with empiric antibiotics: Ceftriaxone and Flagyl GI consult Follow CBC Hypotension Patient initially hypotensive as low as 82/50 Likely secondary to hypovolemia d/t GI losses from diarrhea and hematochezia Patient received IVF in the ED with improvement to BP, currently 134/[address] on maintenance fluids Hold antihypertensives for now, resume as warranted Monitor BP closely MARKUS Patient's creatinine 1.76 at time presentation, up from 1.24 on 12/05/2022 Likely secondary to hypovolemia d/t GI losses from diarrhea and hematochezia Received 1L IVF in ED Will place on maintenance fluids Follow BMP Leukocytosis WBC 12.0 at time of presentation Likely reactionary, no clear sign of infection Tachycardia, tachypnea likely secondary to hypovolemia d/t GI losses from diarrhea and hematochezia, not sepsis Check CT of abdomen and pelvis Check CXR Check UA Patient being covered with empiric antibiotics: Ceftriaxone and Flagyl Cough/SOB Minor complaints per pt Will get CXR Prolonged QTc EKG demonstrated prolonged QTc of 503 Avoid QT prolonging agents Unintentional weight loss Etiology unclear Will be getting CXR, CT of abdomen and pelvis F/U outpatient HTN Patient hypotensive in the ED Hold antihypertensives for now, resume as indicated CAD No longer on anti-platelet therapy d/t GI bleed Continue statin Mood disorder Continue home meds Full Code Attending:?Dr. Goldstein DVT Prophylaxis: Pneumatic boots d/t GI bleed Pt will require a hospitalization of at least two nights for treatment and further evaluation of MARKUS and symptomatic acute blood loss anemia due to GI bleed likely secondary to radiation proctitis. Patient will require close monitoring, IVF, and specialist consultation. Time Spent With Patient Time: Total time managing care of this patient today ____ minutes. Quality Stroke Does the patient have a stroke diagnosis?: No VTE Prior VTE?: No VTE Risk Level:: Medical - moderate - high VTE Device Contraindication: N/A - Device Ordered VTE Drug Contraindication: Treatment Not Indicated
[2023-01-02] MEDS: 0.9 % Sodium Chloride 1,000 ML 100 ML IVCONT (23:12)
[2023-01-03] MEDS: cefTRIAXone sodium 1 GM in 0.9 % Sodium Chloride 50 ML IV (00:10)
[2023-01-03] MEDS: 0.9 % Sodium Chloride Flush 3 ML SYRINGE IVFLUSH (00:11)
[2023-01-03] MEDS: metroNIDAZOLE/NS 500 MG/100 ML PIGGYBACK 100 MG IV ×3 (00:16→14:27)
[2023-01-03 01:59] VITALS: BP 127/73; PULSE 86; RESP 25; TEMP 36.7; O2SAT 99
[2023-01-03] MEDS: QUEtiapine Fumarate 100 MG TABLET PO ×2 (03:04→21:27)
[2023-01-03] MEDS: Mirtazapine 30 MG TABLET PO (03:04)
[2023-01-03] MEDS: PARoxetine HCL 30 MG TABLET 60 MG PO (03:04)
[2023-01-03] MEDS: rOPINIRole HCL 1 MG TABLET 3 MG PO (03:17)
[2023-01-03 05:39] VITALS: BP 126/71; PULSE 103; RESP 20; TEMP 36.7; O2SAT 95
[2023-01-03 05:44] LABS: Hemoglobin 9.4 g/dl (14.0-18.0); Mean Corpuscular HGB Conc 32.4 g/dl (31.0-36.0); Mean Corpuscular Volume 95.7 fL (80.0-98.0); Mean Platelet Volume 9.7 fL (9.4-12.4); Platelet Count 170 X10*3/uL (160-400); Red Blood Count 3.03 X10*6/uL (4.60-5.80); White Blood Count 5.1 X10*3/uL (4.8-10.8)
[2023-01-03 05:59] LABS: Anion Gap 9 (12-20); Blood Urea Nitrogen 26 mg/dL (9-16); Calcium 7.5 mg/dL (8.4-10.2); Carbon Dioxide 16 mmol/L (22-29); Chloride 121 mmol/L (96-108); Creatinine Clr Calc Pharmacy 56.2; Estimated Glomerular Filt Rate > 60; Glucose Random 87 mg/dL (60-115); Potassium 3.2 mmol/L (3.3-5.1); Sodium 143 mmol/L (135-145)
[2023-01-03 06:22] LABS: Influenza A PCR NEGATIVE (Negative); Influenza B PCR NEGATIVE (Negative); Resp Syncy Virus RNA Qual PCR NEGATIVE (Negative); SARS COV2 PCR INHOUSE NEGATIVE (Negative)
--- NOTE | 2023-01-03 07:06 | PC.NURSE ---
Provider Alvin notified via [employer] about hemoglobin drop from 12 to 9.4.
--- NOTE | 2023-01-03 07:26 | PHA.MEDREC ---
Med rec completed overnight by nursing, confirmed in am by pharmacy. Patient was prescribed metoprolol 25 mg bid but has not been taking this, unclear as to why Pharmacy Consult ? Medication Reconciliation Pharmacy has completed the medication reconciliation.
--- NOTE | 2023-01-03 07:35 | PC.NURSE ---
?NPO, reached out to Haven OCONNELL, states to hold tray at this time. pt aware/agreeable. Pt is alert/awake, skin pale. Speech clear.
[2023-01-03 08:39] LABS: Magnesium 1.5 mg/dL (1.6-2.6)
[2023-01-03] MEDS: ALPRAZolam 0.5 MG TABLET 1 MG PO ×2 (09:30→21:28)
[2023-01-03] MEDS: Multivitamin TABLET 1 TAB PO (09:30)
[2023-01-03] MEDS: Sucralfate Oral Suspension 1 GM/10 ML ORAL.SUSP 2 GM PR ×2 (09:30→15:03)
[2023-01-03] MEDS: Potassium Chloride Packet 20 MEQ PACKET 40 MEQ PO (09:30)
[2023-01-03] MEDS: Atorvastatin Calcium 80 MG TABLET PO (09:30)
[2023-01-03] MEDS: Cyanocobalamin (Vitamin B-12) 1,000 MCG TABLET 1000 MCG PO (09:31)
[2023-01-03] MEDS: Cholecalciferol (Vitamin D3) 25 MCG TABLET PO (09:31)
[2023-01-03] MEDS: Metoprolol Tartrate 12.5 MG HALFTAB PO (09:31)
[2023-01-03 09:36] VITALS: BP 133/72; PULSE 98; RESP 18; O2SAT 96
--- NOTE | 2023-01-03 10:19 | PC.NURSE ---
Axox4, vss, nsr on monitor 79 bpm; sats 99% RA; skin wpd. pt denies pain/cp/sob/n/v/d. pt medicated per mar. pt aware of plan of care; denies questions/concerns at this time. call vargas within reach.
[2023-01-03 10:22] LABS: Hematocrit 32.4 % (42.0-52.0); Hemoglobin 10.4 g/dl (14.0-18.0)
[2023-01-03 14:55] VITALS: BP 135/66; PULSE 73; RESP 18; TEMP 36.4; O2SAT 97
[2023-01-03] MEDS: Lactated Ringers 1,000 ML 100 ML IVCONT (15:13)
--- NOTE | 2023-01-03 15:23 | HO.PM.IMPN ---
Subjective Subjective Date of Service: 01/03/23 Interval History: gib , black Review of Systems Patient had painless 1 BM with blood and few clots this afternoon since he came Denies any abdominal pain, nausea vomiting or diarrhea or any dizziness lightheadedness. No fever or chills. Physical Exam Vital Signs: Vital Signs: Last Vital Signs Temp 97.5 F 01/03/23 14:55 Pulse 73 01/03/23 14:55 Resp 18 01/03/23 14:55 BP 135/66 01/03/23 14:55 Pulse Ox 97 01/03/23 14:55 O2 Del Method Room Air 01/03/23 14:55 BMI result Body Mass Index 19.6 Appearance: Alert.? Oriented X3.? not in distress.? cvs: rrr, [id number] . res: clear to auscultation ,no rhonchii or wheezing abd: no rebound or guarding ,nt, bs present. ext pulses present , no cyanosis . neuro: axo3 , nonfocal. Objective Data Active Medications Acetaminophen (Acetaminophen 325 Mg Tablet) 650 mg PO Q6H PRN PRN Reason: Pain, Mild (Pain Scale 1-3) Albuterol/Ipratropium (Albuterol/Iprat 2.5/0.5mg 3 Ml Ampul.Neb) 3 ml INHALE RQ4H PRN PRN Reason: Shortness of Breath/Wheezing Alprazolam (Alprazolam 0.5 Mg Tablet) 1 mg PO BID [facility] Last Admin: 01/03/23 09:30 Dose: 1 mg Documented By: SHUN Atorvastatin Calcium (Atorvastatin Calcium 80 Mg Tablet) 80 mg PO DAILY [facility] Last Admin: 01/03/23 09:30 Dose: 80 mg Documented By: SHUN Cyanocobalamin (Cyanocobalamin (Vitamin B-12) 1,000 Mcg Tablet) 1,000 mcg PO DAILY [facility] Last Admin: 01/03/23 09:31 Dose: 1,000 mcg Documented By: SHUN Ceftriaxone Sodium 1 gm/ (Sodium Chloride) 50 mls @ 100 mls/hr IV Q24H [facility] Last Infusion: 01/03/23 00:40 Dose: Infused Documented By: JEAN Metronidazole (Flagyl) 500 mg in 100 mls @ 100 mls/hr IV Q8H [facility] Last Admin: 01/03/23 14:27 Dose: 100 mls/hr Documented By: NATALIE Lactated Ringer's (Lr) 1,000 mls @ 100 mls/hr IVCONT .Q10H [facility] Last Admin: 01/03/23 15:13 Dose: 100 mls/hr Documented By: NATALIE Metoprolol Tartrate (Metoprolol Tartrate 12.5 Mg Halftab) 12.5 mg PO BID [facility]; Protocol Last Admin: 01/03/23 09:31 Dose: 12.5 mg Documented By: SHUN Mirtazapine (Mirtazapine 30 Mg Tablet) 30 mg PO BEDTIME [facility] Last Admin: 01/03/23 03:04 Dose: 30 mg Documented By: JEAN Multivitamins/Vitamin C (Multivitamin Tablet) 1 tab PO DAILY [facility] Last Admin: 01/03/23 09:30 Dose: 1 tab Documented By: SHUN Pantoprazole Sodium (Pantoprazole Sodium 40 Mg/10 Ml Vial) 40 mg IVPUSH BID@0630,1630 [facility] Paroxetine HCl (Paroxetine Hcl 30 Mg Tablet) 60 mg PO BEDTIME [facility] Last Admin: 01/03/23 03:04 Dose: 60 mg Documented By: JEAN Quetiapine Fumarate (Quetiapine Fumarate 100 Mg Tablet) 100 mg PO BEDTIME [facility] Last Admin: 01/03/23 03:04 Dose: 100 mg Documented By: JEAN Ropinirole HCl (Ropinirole Hcl 1 Mg Tablet) 3 mg PO BEDTIME [facility] Last Admin: 01/03/23 03:17 Dose: 3 mg Documented By: JEAN Sodium Chloride (0.9 % Sodium Chloride Flush 3 Ml Syringe) 3 ml IVFLUSH QSHIFT [facility] Last Admin: 01/03/23 13:33 Dose: Not Given Documented By: NATALIE Non-Admin Reason: See Note Sucralfate (Sucralfate Oral Suspension 1 Gm/10 Ml Oral.Susp) 2 gm WI DAILY [facility] Last Admin: 01/03/23 09:30 Dose: 2 gm Documented By: SHUN Sucralfate (Sucralfate Oral Suspension 1 Gm/10 Ml Oral.Susp) 2 gm WI ONCE [facility] Last Admin: 01/03/23 15:03 Dose: 2 gm Documented By: NATALIE Vitamin D (Cholecalciferol (Vitamin D3) 25 Mcg Tablet) 25 mcg PO DAILY [facility] Last Admin: 01/03/23 09:31 Dose: 25 mcg Documented By: SHUN Zolpidem Tartrate (Zolpidem Tartrate 5 Mg Tablet) 10 mg PO BEDTIME PRN PRN Reason: insomnia Labs 01/03/23 10:12 01/03/23 05:11 Labs: Laboratory Results - last 24 hr 01/02/23 01/02/23 01/02/23 19:07 19:09 23:35 MCV 94.8 MCH 31.8 MCHC 33.5 RDW 13.9 Plt Count 262 D MPV 9.7 Immature Gran % (Auto) 0.4 Neut % (Auto) 79.2 H Lymph % (Auto) 12.4 L [place] % (Auto) 6.4 Eos % (Auto) 1.3 Baso % (Auto) 0.3 Lymph # (Auto) 1.5 [place] # (Auto) 0.8 Eos # (Auto) 0.2 Baso # (Auto) 0.0 Abs Immat Gran (auto) 0.05 H Absolute Neuts (auto) 9.5 H Absolute Nucleated RBC 0.000 Nucleated RBC % (auto) 0.0 PT 10.6 L INR 0.9 Anion Gap 18 Estim Creat Clear Calc 36.7 Estimated GFR 38 Random Glucose 110 Lactic Acid 1.0 Calcium 9.9 D Magnesium Total Bilirubin 0.6 AST 30 ALT 16 Alkaline Phosphatase 83 Total Protein 6.8 Albumin 3.9 Influenza Type A (PCR) Influenza Type B (PCR) RSV RNA Qual (PCR) SARS-CoV-2 RNA (RT-PCR) Blood Type B Positive Antibody Screen NEGATIVE 01/03/23 01/03/23 05:11 05:38 MCV 95.7 MCH 31.0 MCHC 32.4 RDW 14.0 Plt Count 170 D MPV 9.7 Immature Gran % (Auto) Neut % (Auto) Lymph % (Auto) [place] % (Auto) Eos % (Auto) Baso % (Auto) Lymph # (Auto) [place] # (Auto) Eos # (Auto) Baso # (Auto) Abs Immat Gran (auto) Absolute Neuts (auto) Absolute Nucleated RBC 0.000 Nucleated RBC % (auto) 0.0 PT INR Anion Gap 9 L Estim Creat Clear Calc 56.2 Estimated GFR > 60 Random Glucose 87 Lactic Acid Calcium 7.5 L D Magnesium 1.5 L Total Bilirubin AST ALT Alkaline Phosphatase Total Protein Albumin Influenza Type A (PCR) NEGATIVE Influenza Type B (PCR) NEGATIVE RSV RNA Qual (PCR) NEGATIVE SARS-CoV-2 RNA (RT-PCR) NEGATIVE Blood Type Antibody Screen Assessment and Plan (1) BLACK (acute kidney injury): Status: Acute (2) Lower gastrointestinal hemorrhage: Status: Acute (3) Colitis: Status: Acute (4) Hypokalemia: Status: Acute (5) Hypomagnesemia: Status: Acute Plan 72-year-old male with a PMH significant for?prostate cancer s/p prostatectomy and radiation therapy for 8 weeks, hx of radiation proctitis, CAD s/p PCI in 2014, carotid artery stenosis s/p bilateral carotid stenting, hx of cerebral hemorrhage, epilepsy, HLD, HTN, restless leg syndrome, and anxiety who presents to the ED for evaluation of episodes of bright red blood per rectum earlier today. Pt will be admitted to the hospital for treatment further evaluation of lower GI bleed likely secondary to radiation proctitis. Acute symptomatic blood loss anemia due to GI bleed 3+ episodes of large amounts of bright red blood per rectum at home siimilar presentation to prior admission on 12/01/2022-12/06/2022 this mornin h/h 10.4/32.4 ( seems likel last month running h/h of 11-12 /hct 33-36 range). has another bm -with blood /clots this afternoon ct abd pelvis:Distal rectal/anal thickening suggesting proctocolitis. d/w GI:Likely secondary to radiation proctitis added sucralfate enemas daily x4 weeks,on empiric antibiotics: Ceftriaxone and Flagyl type and cross h/h is above transfusion threshold. Will check another H and H since had 1 bloody bm this afternoon. moniter for further bleeding moniter h/h this evening also GI consult official pending Hypotension Patient initially hypotensive -thought Likely secondary to hypovolemia d/t GI losses from diarrhea and hematochezia Patient received IVF in the ED with improvement to BP. continue maintenance fluids Hold antihypertensives for now, resume as warranted Monitor BP closely BLACK Patient's creatinine 1.76 at time presentation, up from 1.24 on 12/05/2022 improved with hydration. Leukocytosis-resolved cxr and ua neg Patient being covered with empiric antibiotics:proctocolitis.- ? Ceftriaxone and Flagyl denies nay sob/cough Prolonged QTc EKG demonstrated prolonged QTc of 503 asymptomatic ,added tele added mag/potassium replacement. Avoid QT prolonging agents HTN Patient hypotensive in the ED Hold antihypertensives for now, resume as indicated CAD No longer on anti-platelet therapy d/t GI bleed Continue statin Mood disorder Continue home meds Hypomagnesemia and hypokalemia: Repleted, monitor renal function and electrolyte. Full Code DVT Prophylaxis: Pneumatic boots d/t GI bleed ongoing hospitalization need: for treatment and further evaluation of BLACK and symptomatic acute blood loss anemia due to GI bleed likely secondary to radiation proctitis. Patient will require close monitoring, IVF, h/h moniterring and specialist consultation. Time Spent With Patient Time: Total time managing care of this patient today ____ minutes. Quality Stroke Does the patient have a stroke diagnosis?: No VTE Prior VTE?: No VTE Risk Level:: Medical - moderate - high VTE Device Contraindication: N/A - Device Ordered VTE Drug Contraindication: Treatment Not Indicated
[2023-01-03] MEDS: Pantoprazole Sodium 40 MG/10 ML VIAL IVPUSH (15:30)
[2023-01-03 15:37] VITALS: BP 96/63; PULSE 74; RESP 18; TEMP 36.6; O2SAT 98
[2023-01-03 16:17] LABS: Hematocrit 36.7 % (42.0-52.0); Hemoglobin 11.7 g/dl (14.0-18.0)
[2023-01-03] MEDS: Magnesium Sulfate/D5W 1 GM/100 ML PIGGYBACK IV (16:17)
[2023-01-03] MEDS: Potassium Chloride/H20 10 MEQ/100 ML PIGGYBACK 100 MEQ IV (16:17)
--- NOTE | 2023-01-03 16:25 | MHC.CM.PN ---
CM ATTEMPTED TO SEE PT WHO WAS RECEIVING NURSING CARE CM WILL REVISIT TOMORROW
--- NOTE | 2023-01-03 18:20 | PM.EVENT ---
Event Note Date of Service: 01/03/23 Event Note: GI Consult-Full note dictated. D/W hospitalist service. History from patient, RN, and EMR. Imp: Lower GI Bleed. Presently stable. Diff dx: Diverticular bleed vs bleeding from his known XRT proctitis Rec: Colonoscopy as an inpatient as per Dr. Brooks. It would be best to do that before his cardiac procedure with potential need for anticoagulant therapy. Cardiology consult in AM for clearance prior to the colonoscopy. Hold sucralfate enemas, antibiotics, and IV PPI. F/U labs in the AM. D/W patient in detail and he is comfortable with this plan. Thanks Time Spent With Patient Time: Total time managing care of this patient today ____ minutes.
[2023-01-03 19:05] VITALS: BP 96/55; PULSE 72; RESP 18; TEMP 36.5; O2SAT 98
[2023-01-03 22:21] LABS: Hematocrit 30.3 % (42.0-52.0); Hemoglobin 10.1 g/dl (14.0-18.0)
[2023-01-04] MEDS: cefTRIAXone sodium 1 GM in 0.9 % Sodium Chloride 50 ML IV (00:13)
[2023-01-04] MEDS: Lactated Ringers 1,000 ML 100 ML IVCONT ×2 (00:40→16:08)
[2023-01-04] MEDS: metroNIDAZOLE/NS 500 MG/100 ML PIGGYBACK 100 MG IV ×3 (00:43→14:39)
[2023-01-04 03:22] VITALS: BP 124/59; PULSE 67; RESP 17; TEMP 36.2; O2SAT 93
--- NOTE | 2023-01-04 03:24 | CONS_ITS ---
DATE OF SERVICE: 01/03/2023 REASON FOR CONSULTATION: Lower GI bleeding and anemia. HISTORY OF PRESENT ILLNESS: The patient is a 72-year-old male, who was well up until yesterday morning when he developed the onset of painless hematochezia. He describes that he had the sudden urge to have a bowel movement and when he went to the bathroom it was all pure red blood. This happened at least 2 more times and prompted his arrival to the ER. Overnight in the hospital, he has continued to have small amounts of bright red blood, but definitely lessening both in frequency and the amount. During this time, he has not had any abdominal pain, rectal pain, nausea, nor vomiting. He has not noticed any black stool. He has not noticed any jaundice. He denies any chronic heartburn nor upper GI symptoms such as dysphagia or early satiety. The patient has a past history notable for prostate cancer, for which he underwent previous prostatectomy and then subsequent radiation treatments about 2 years ago. He underwent a colonoscopy last year with the finding of a rectal tubular adenoma, which was removed as well as some inflammation in the distal rectum and some telangiectasias consistent with some radiation proctitis. The procedure was done by Dr. Brooks. In fact, he is scheduled for a followup colonoscopy later this week by coincidence. The patient was hospitalized here in November for some rectal bleeding, which did resolve and did not require transfusions. He did not undergo any procedures last month. The patient has been seen by Cardiology both last month in the hospital and as an outpatient, and he describes that he failed a stress test and was scheduled for a cardiac catheterization last week, but he had to cancel that. He had been on Plavix, but stopped that in November and has only been on 81 mg aspirin. He took his last dose of aspirin yesterday. He has not had any chest pain. The patient denies any known family history of colorectal cancer. Since admission, his blood count has remained stable and is actually improved without any transfusions. His hemoglobin on December 06 during the last hospitalization was 11.0 at the time of discharge. When he came in yesterday, his hemoglobin was 12.3, which dropped to 9.4 this morning. However, repeat at 10 a.m. was 10.4 and at 3 p.m. today was 11.7. Again, he has not had any transfusions. MEDICATIONS: His medications at home included aspirin 81 mg, alprazolam, vitamins, vitamin D, lisinopril, metoprolol, mirtazapine, Paxil, quetiapine, ropinirole, rosuvastatin, and Ambien. His medications here in the hospital include acetaminophen, albuterol p.r.n., alprazolam, atorvastatin, IV ceftriaxone, vitamin D, vitamin B12, magnesium, metoprolol, IV Flagyl, mirtazapine, pantoprazole 40 mg IV b.i.d., Paxil, potassium, quetiapine, Requip, and Ambien. PAST MEDICAL HISTORY: Bilateral carotid artery stents. Apparent coronary artery disease, for which he had been scheduled for cardiac catheterization last week, but that was canceled. Hyperlipidemia. He has had hernia surgery. He denies any history of diabetes, MD, or lung disease. Prostate cancer as above. Seizure disorder. Restless legs syndrome. Hypertension. Anxiety. Colonoscopy as above with the finding of a rectal tubular adenoma and some radiation proctitis in [address] Brooks. FAMILY HISTORY: Noncontributory. SOCIAL HISTORY: He does not smoke nor use any significant amounts of alcohol. He is . REVIEW OF SYSTEMS: CONSTITUTIONAL: Up until yesterday, he had been feeling well with good energy and good appetite. SKIN: No rash. No pruritus. CARDIAC: No recent chest pain. PULMONARY: No cough. No hemoptysis. GI: As above. NEUROLOGIC: No headache or focal weakness. He does have a history of seizures. URINARY: No dysuria. No hematuria. PHYSICAL EXAMINATION: GENERAL: The patient is a pleasant, alert, comfortable-appearing male. SKIN: Warm and dry. HEENT: Nonjaundiced. Anicteric sclerae. Moist mucous membranes. NECK: Supple. CHEST: Clear. CARDIAC: Normal S1 and S2. ABDOMEN: Soft, nondistended, and nontender without organomegaly or mass. EXTREMITIES: Without edema. LABORATORY AND IMAGING DATA: Hemoglobin as above, white blood cell count 5.1, platelets 170,000. PT 10.6 with INR 0.9. Sodium 143, potassium 3.2, BUN 26, creatinine 1.2, calcium 7.5, magnesium 1.5. Normal LFTs. He did have a CT scan of his abdomen and pelvis on admission, describing some distal rectal and anal thickening consistent with proctitis. There was no sign of any other significant abnormalities. Chest x-ray described COPD and emphysema. IMPRESSION: Given the patient's presentation with sudden and painless hematochezia, this could represent a diverticular bleed as opposed to bleeding from the radiation proctitis since this came on suddenly and was not associated with any particular symptoms such as diarrhea nor urgency. Nonetheless, he had been scheduled for a followup colonoscopy later this week and we shall, therefore, try to do this as an inpatient. At the present time, he appears quite stable. I will continue his clear liquid diet and hold his low-dose aspirin. Given his reported positive stress test and plan for cardiac catheterization, I have recommended that he have a Cardiology consult tomorrow, so as to be cleared for a colonoscopy later this week. I do not think the colonoscopy needs to be done urgently, but again would be best to be done while he is inpatient and preferably before his cardiac procedure with potential stent placement or coronary artery surgery that could require him to be on anticoagulation. He will have followup laboratories in the morning including CBC. For now, I would hold the sucralfate enema that was ordered in regard to the finding of previous radiation proctitis. I also do not see a need for antibiotics nor IV PPI at this time. This has all been discussed with the Hospitalist. He will be followed up tomorrow in the hospital by Dr. Brooks and plans will be made for his colonoscopy as an inpatient assuming he is cleared by Cardiology. Thank you for the consultation. MD JAMESON Marie/XAVI / [id number] MTDD
[2023-01-04 06:00] LABS: MANUAL DIFF FLAG NO
[2023-01-04 06:08] LABS: Basophils Percent Auto 0.5 % (0-2); Eosinophils Absolute Auto 0.4 X10*3/uL (0.0-0.4); Eosinophils Percent Auto 6.4 % (0-4); Hematocrit 31.1 % (42.0-52.0); Hemoglobin 10.1 g/dl (14.0-18.0); Imm Gran Abs Auto 0.01 X10*3/uL (0.00-0.03); Imm Gran Pct Auto 0.2 % (0.0-0.4); Lymphocytes Percent Auto 15.5 % (20-40); Mean Corpuscular HGB Conc 32.5 g/dl (31.0-36.0); Mean Corpuscular Hemoglobin 31.8 pg (27.0-33.0); Mean Corpuscular Volume 97.8 fL (80.0-98.0); Monocytes Absolute Auto 0.6 X10*3/uL (0.1-1.2); Monocytes Percent Auto 9.3 % (2-11); Neutrophils Absolute Auto 4.2 x10*3/uL (2.0-8.3); Neutrophils Percent Auto 68.1 % (45-73); Platelet Count 179 X10*3/uL (160-400); Red Blood Count 3.18 X10*6/uL (4.60-5.80); Red Cell Distribution Width 13.7 % (11.0-16.0); White Blood Count 6.1 X10*3/uL (4.8-10.8)
[2023-01-04 06:24] LABS: Anion Gap 13 (12-20); Blood Urea Nitrogen 21 mg/dL (9-16); Calcium 8.7 mg/dL (8.4-10.2); Carbon Dioxide 20 mmol/L (22-29); Chloride 112 mmol/L (96-108); Estimated Glomerular Filt Rate > 60; Glucose Fasting 80 mg/dL (60-99); Magnesium 1.9 mg/dL (1.6-2.6); Potassium 4.5 mmol/L (3.3-5.1); Sodium 140 mmol/L (135-145)
[2023-01-04 07:40] VITALS: BP 131/61; PULSE 71; RESP 18; TEMP 36.3; O2SAT 96
[2023-01-04] MEDS: ALPRAZolam 0.5 MG TABLET 1 MG PO ×2 (08:09→20:22)
[2023-01-04] MEDS: 0.9 % Sodium Chloride Flush 3 ML SYRINGE IVFLUSH (08:10)
--- NOTE | 2023-01-04 09:40 | MHC.CM.PN ---
IMM DELIVERED LIVES WITH SPOUSE, INDEPENDENT AT BASELINE. +COVID VAX + HCP ON FILE PCP DR. GONZALES AT [facility] [place] DP: HOME, NO SERVICES ANTICIPATED. PT HAS OWN RIDE HOME. CM WILL CONTINUE TO FOLLOW FOR ANY CHANGE TO DC PLAN/NEEDS
--- NOTE | 2023-01-04 10:06 | P.CONCA_ITS ---
History of Present Illness History of Present Illness Date of Service: 01/04/23 Chief complaint: Lower GI Bleed Narrative: This is a cardiology consultation regarding preoperative risk stratification for colonoscopy. Recent cardiology consultation by was reviewed. It seems that he had presented with chest discomfort and some GI bleed. He had chest tightness radiating to both shoulders. Then received blood transfusion. At that time, it was felt that the symptoms were anginal sounding. Any case, he underwent echocardiogram and stress test. Echocardiogram was unremarkable but the stress test was abnormal. After this, patient was transferred to [facility] but it does not appear that he actually had any catheterization there. He is rather discharged for medical therapy only. Currently, he is readmitted with gastrointestinal bleeding and that is suspected to be from radiation proctitis. However, he is not complaining of any chest pain or cardiac symptoms at this time. Review of Systems 2 Review of Systems: Yes all other systems are reviewed and are negative Constitutional: Constitutional: Reports as per HPI and Reports no additional constitutional complaints Eyes: Eyes: Reports as per HPI and Denies no additional eye complaints ENT: Denies system reviewed and no additional complaints, except as documented and Reports as per HPI Cardiovascular: Cardiovascular: Reports as per HPI, Reports no additional cardiovascular complaints, Denies acrocyanosis, Denies cool extremities, Denies chest pain, Denies leg edema, Denies lightheadedness, Denies palpitations and Denies dyspnea Respiratory: Respiratory: Reports as per HPI, Denies no additional respiratory complaints and Denies dyspnea Gastrointestinal: Gastrointestinal: Reports as per HPI and Denies no additional gastrointestinal complaints Genitourinary: Genitourinary: Reports no additional male genitourinary complaints and Reports as per HPI Musculoskeletal: Musculoskeletal: Reports no additional musculoskeletal complaints and Reports as per HPI Integumentary/Breasts: Skin/Breast: Reports system reviewed and no additional complaints, except as docu Neurologic: Reports system reviewed and no additional complaints, except as documented and Reports as per HPI Psychiatric: Psychiatric: Reports no additional psychiatric complaints and Reports as per HPI Endocrine: Endocrine: Reports no additional endocrine complaints, Reports as per HPI and Denies palpitations Hematologic/Lymphatic: Hematologic/Lymphatic: Reports no additional hematologic/lymphatic complaints and Reports as per HPI Allergic/Immunologic: Allergic/Immunologic: Reports no additional allergic/immunologic complaints and Reports as per HPI [facility] Past Medical History Medical History Anal discharge Depression Anxiety Prostate cancer Restless legs syndrome Epilepsy 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 Degenerative disc disease, cervical Impaired fasting glucose Pure hypercholesterolemia Bilateral carotid artery stenosis Benign essential hypertension Family History Family History Father Cancer Mother Chronic mental illness Son In good health Daughter In good health Surgical History Surgical History Hx of colonoscopy History of common carotid artery stent placement H/O radical prostatectomy History of inguinal hernia repair Social History Social History Household Members: Children and Other Housing: House Do you presently have visiting nurse or other home services: No Alcohol intake: never Patient Tobacco Use Status: Former Tobacco user Quit Date: quit 7 yrs ago Tobacco use type: Cigarette Smoked in Last 30 Days: No e-Cigarette/Vaping Use: Never Used Second Hand Smoke Exposure: No Use of substances other than those prescribed or required for medical reasons: No Substance Use Type: Marijuana Substance Use Frequency: Monthly Currently Displaying Signs/Symptoms of Drug Intoxication Withdrawal: No Have you been hit, kicked, punched, or otherwise hurt by someone within the past year? If so, by whom?: No Advance Directives: No Advance Directives Information Provided: No Recently lost weight without trying: Unsure Nutrition Risks: Poor intake 0-25% >4 days service: No Current occupational status: retired Cognitive needs: No Hearing needs: No Vision needs: Yes Meds Allergies Allergy/AdvReac Type Severity Reaction Status Date / Time zolpidem AdvReac Unknown sleepwalkin Verified 10/20/22 10:21 g Active Medications: Current Medications Acetaminophen (Acetaminophen 325 Mg Tablet) 650 mg PO Q6H PRN PRN Reason: Pain, Mild (Pain Scale 1-3) Albuterol/Ipratropium (Albuterol/Iprat 2.5/0.5mg 3 Ml Ampul.Neb) 3 ml INHALE RQ4H PRN PRN Reason: Shortness of Breath/Wheezing Alprazolam (Alprazolam 0.5 Mg Tablet) 1 mg PO BID [facility] Last Admin: 01/04/23 08:09 Dose: 1 mg Atorvastatin Calcium (Atorvastatin Calcium 80 Mg Tablet) 80 mg PO DAILY [facility] Last Admin: 01/03/23 09:30 Dose: 80 mg Cyanocobalamin (Cyanocobalamin (Vitamin B-12) 1,000 Mcg Tablet) 1,000 mcg PO DAILY [facility] Last Admin: 01/03/23 09:31 Dose: 1,000 mcg Ceftriaxone Sodium 1 gm/ (Sodium Chloride) 50 mls @ 100 mls/hr IV Q24H [facility] Last Infusion: 01/04/23 00:43 Dose: Infused Metronidazole (Flagyl) 500 mg in 100 mls @ 100 mls/hr IV Q8H [facility] Last Infusion: 01/04/23 09:17 Dose: Infused Lactated Ringer's (Lr) 1,000 mls @ 100 mls/hr IVCONT .Q10H [facility] Last Admin: 01/04/23 00:40 Dose: 100 mls/hr Metoprolol Tartrate (Metoprolol Tartrate 12.5 Mg Halftab) 12.5 mg PO BID [facility]; Protocol Last Admin: 01/03/23 09:31 Dose: 12.5 mg Mirtazapine (Mirtazapine 30 Mg Tablet) 30 mg PO BEDTIME [facility] Last Admin: 01/03/23 03:04 Dose: 30 mg Multivitamins/Vitamin C (Multivitamin Tablet) 1 tab PO DAILY [facility] Last Admin: 01/03/23 09:30 Dose: 1 tab Pantoprazole Sodium (Pantoprazole Sodium 40 Mg/10 Ml Vial) 40 mg IVPUSH BID@0630,1630 [facility] Last Admin: 01/04/23 06:04 Dose: Not Given Paroxetine HCl (Paroxetine Hcl 30 Mg Tablet) 60 mg PO BEDTIME [facility] Last Admin: 01/03/23 03:04 Dose: 60 mg Quetiapine Fumarate (Quetiapine Fumarate 100 Mg Tablet) 100 mg PO BEDTIME [facility] Last Admin: 01/03/23 21:27 Dose: 100 mg Ropinirole HCl (Ropinirole Hcl 1 Mg Tablet) 3 mg PO BEDTIME [facility] Last Admin: 01/03/23 03:17 Dose: 3 mg Sodium Chloride (0.9 % Sodium Chloride Flush 3 Ml Syringe) 3 ml IVFLUSH QSHIFT [facility] Last Admin: 01/04/23 08:10 Dose: 3 ml Vitamin D (Cholecalciferol (Vitamin D3) 25 Mcg Tablet) 25 mcg PO DAILY [facility] Last Admin: 01/03/23 09:31 Dose: 25 mcg Zolpidem Tartrate (Zolpidem Tartrate 5 Mg Tablet) 10 mg PO BEDTIME PRN PRN Reason: insomnia Home Medications Medication Instructions Recorded Confirmed Last Taken Type alprazolam 1 mg tablet 1 mg PO BID 12/01/22 01/03/23 12/01/22 History cholecalciferol (vitamin D3) 25 25 mcg PO DAILY 12/01/22 01/03/23 12/01/22 History mcg (1,000 unit) tablet cyanocobalamin (vitamin B-12) 1,000 mcg PO DAILY 12/01/22 01/03/23 12/01/22 History 1,000 mcg tablet [id number] 300 mcg-K 60 1 tab PO DAILY 12/01/22 01/03/23 12/01/22 History mcg-lycop 600 mcg-lutein 300 mcg tablet (Centrum Silver Men) paroxetine HCl 30 mg tablet 60 mg PO BEDTIME 12/01/22 01/03/23 11/30/22 History metoprolol tartrate 25 mg tablet 25 mg PO BID 01/03/23 01/03/23 Unknown History Physical Exam 2 Vital Signs: Vital Signs: Last Vital Signs Temp 97.3 F 01/04/23 07:40 Pulse 71 01/04/23 07:40 Resp 18 01/04/23 07:40 BP 131/61 01/04/23 07:40 Pulse Ox 96 01/04/23 07:40 O2 Del Method Room Air 01/04/23 07:40 BMI result Body Mass Index 19.6 Const: General: comfortable and no acute distress O rientation/consciousness: patient oriented x3 HEENT: Other: Unremarkable Head: Yes normal to inspection Neck: Neck: Yes normal visual inspection Chest: Chest palpation & inspection: normal inspection of the chest Resp: Auscultation: clear to auscultation bilaterally Cardio: Palpation: normal PMI Heart sounds: S1 normal heart sound present, S2 normal heart sound present, no gallops, no murmurs and no rubs GI: Palpation (GI): Soft to palpation Back/Spine/Pelvis: Other: unremarkable Skin: General skin exam: no rashes or lesions noted Neuro: General: patient oriented x3 Extrem: General: Yes normal to inspection Psych: Mental Status: mental status grossly normal Objective Labs and Meds 01/04/23 05:44 01/04/23 05:44 Lab results: Laboratory Results - last 24 hr 01/03/23 01/03/23 01/03/23 10:12 15:23 22:16 WBC RBC Hgb 10.4 L 11.7 L 10.1 L Hct 32.4 L 36.7 L 30.3 L MCV MCH MCHC RDW Plt Count MPV Immature Gran % (Auto) Neut % (Auto) Lymph % (Auto) [place] % (Auto) Eos % (Auto) Baso % (Auto) Lymph # (Auto) [place] # (Auto) Eos # (Auto) Baso # (Auto) Abs Immat Gran (auto) Absolute Neuts (auto) Absolute Nucleated RBC Nucleated RBC % (auto) Sodium Potassium Chloride Carbon Dioxide Anion Gap BUN Creatinine Estim Creat Clear Calc Estimated GFR Fasting Glucose Calcium Magnesium 01/04/23 05:44 WBC 6.1 RBC 3.18 L Hgb 10.1 L Hct 31.1 L MCV 97.8 MCH 31.8 MCHC 32.5 RDW 13.7 Plt Count 179 MPV 10.0 Immature Gran % (Auto) 0.2 Neut % (Auto) 68.1 Lymph % (Auto) 15.5 L [place] % (Auto) 9.3 Eos % (Auto) 6.4 H Baso % (Auto) 0.5 Lymph # (Auto) 1.0 L [place] # (Auto) 0.6 Eos # (Auto) 0.4 Baso # (Auto) 0.0 Abs Immat Gran (auto) 0.01 Absolute Neuts (auto) 4.2 Absolute Nucleated RBC 0.000 Nucleated RBC % (auto) 0.0 Sodium 140 Potassium 4.5 D Chloride 112 H Carbon Dioxide 20 L Anion Gap 13 BUN 21 H Creatinine 0.98 Estim Creat Clear Calc 65.0 Estimated GFR > 60 Fasting Glucose 80 Calcium 8.7 D Magnesium 1.9 ECG Interpretation: EKG from January 02 with sinus tachycardia 100/Min; no significant ST-T changes and otherwise unremarkable. Normal NE. Slightly prolonged corrected QT. Assessment and Plan (1) Preoperative cardiovascular examination: Status: Acute (2) Abnormal stress test: Status: Acute Plan In the recent echocardiogram, LVEF 65-70%. No wall motion abnormalities and otherwise unremarkable. In the stress test, patient exercised only for 1 minute and 15 seconds anterior chest pressure with PVCs. EKG was also abnormal. Post-stress septal dyskinesis thought to be possibly from PVC. Per recent cardiology note, high suspicion of CAD. Cardiac catheterization was recommended and transferred to [facility] but not performed. Will discuss catheterization team. Possible outpatient cardiac catheterization but will confirm definitive plan. Patient of [facility]. Time Spent With Patient Time: Total time managing care of this patient today ____ minutes. Procedures Date of Service Date of Service: 01/04/23
[2023-01-04 14:14] VITALS: BMI 19.6
--- NOTE | 2023-01-04 14:33 | P.PNIM_ITS ---
Subjective Subjective Date of Service: 01/04/23 Interval History: GIB Review of Systems He has 1 bm last night -said no bleed Does not feel nauseated or any chest pain or shortness of breath Physical Exam 2 Vital Signs: Vital Signs: Last Vital Signs Temp 97.3 F 01/04/23 07:40 Pulse 71 01/04/23 07:40 Resp 18 01/04/23 07:40 BP 131/61 01/04/23 07:40 Pulse Ox 96 01/04/23 07:40 O2 Del Method Room Air 01/04/23 07:40 BMI result Body Mass Index 19.6 Appearance: Alert.? Oriented X3.? not in distress.? cvs: rrr, [id number] . res: clear to auscultation ,no rhonchii or wheezing abd: no rebound or guarding ,nt, bs present. ext pulses present , no cyanosis . neuro: axo3 , nonfocal. Objective Data Active Medications Acetaminophen (Acetaminophen 325 Mg Tablet) 650 mg PO Q6H PRN PRN Reason: Pain, Mild (Pain Scale 1-3) Albuterol/Ipratropium (Albuterol/Iprat 2.5/0.5mg 3 Ml Ampul.Neb) 3 ml INHALE RQ4H PRN PRN Reason: Shortness of Breath/Wheezing Alprazolam (Alprazolam 0.5 Mg Tablet) 1 mg PO BID [facility] Last Admin: 01/04/23 08:09 Dose: 1 mg Documented By: ALANA Atorvastatin Calcium (Atorvastatin Calcium 80 Mg Tablet) 80 mg PO DAILY [facility] Last Admin: 01/03/23 09:30 Dose: 80 mg Documented By: SHUN Cyanocobalamin (Cyanocobalamin (Vitamin B-12) 1,000 Mcg Tablet) 1,000 mcg PO DAILY [facility] Last Admin: 01/03/23 09:31 Dose: 1,000 mcg Documented By: SHUN Ceftriaxone Sodium 1 gm/ (Sodium Chloride) 50 mls @ 100 mls/hr IV Q24H [facility] Last Infusion: 01/04/23 00:43 Dose: Infused Documented By: MARY Metronidazole (Flagyl) 500 mg in 100 mls @ 100 mls/hr IV Q8H [facility] Last Infusion: 01/04/23 09:17 Dose: Infused Documented By: ALANA Lactated Ringer's (Lr) 1,000 mls @ 100 mls/hr IVCONT .Q10H [facility] Last Admin: 01/04/23 00:40 Dose: 100 mls/hr Documented By: MARY Metoprolol Tartrate (Metoprolol Tartrate 12.5 Mg Halftab) 12.5 mg PO BID [facility]; Protocol Last Admin: 01/03/23 09:31 Dose: 12.5 mg Documented By: SHUN Mirtazapine (Mirtazapine 30 Mg Tablet) 30 mg PO BEDTIME [facility] Last Admin: 01/03/23 03:04 Dose: 30 mg Documented By: JEAN Multivitamins/Vitamin C (Multivitamin Tablet) 1 tab PO DAILY [facility] Last Admin: 01/03/23 09:30 Dose: 1 tab Documented By: SHUN Pantoprazole Sodium (Pantoprazole Sodium 40 Mg/10 Ml Vial) 40 mg IVPUSH BID@0630,1630 [facility] Last Admin: 01/04/23 06:04 Dose: Not Given Documented By: MARY Non-Admin Reason: med held per MD in event note on 01/03/23 Paroxetine HCl (Paroxetine Hcl 30 Mg Tablet) 60 mg PO BEDTIME [facility] Last Admin: 01/03/23 03:04 Dose: 60 mg Documented By: JEAN Quetiapine Fumarate (Quetiapine Fumarate 100 Mg Tablet) 100 mg PO BEDTIME [facility] Last Admin: 01/03/23 21:27 Dose: 100 mg Documented By: MARY Ropinirole HCl (Ropinirole Hcl 1 Mg Tablet) 3 mg PO BEDTIME [facility] Last Admin: 01/03/23 03:17 Dose: 3 mg Documented By: JEAN Sodium Chloride (0.9 % Sodium Chloride Flush 3 Ml Syringe) 3 ml IVFLUSH QSHIFT [facility] Last Admin: 01/04/23 08:10 Dose: 3 ml Documented By: ALANA Vitamin D (Cholecalciferol (Vitamin D3) 25 Mcg Tablet) 25 mcg PO DAILY [facility] Last Admin: 01/03/23 09:31 Dose: 25 mcg Documented By: SHUN Zolpidem Tartrate (Zolpidem Tartrate 5 Mg Tablet) 10 mg PO BEDTIME PRN PRN Reason: insomnia Labs 01/04/23 05:44 01/04/23 05:44 Labs: Laboratory Results - last 24 hr 01/04/23 05:44 MCV 97.8 MCH 31.8 MCHC 32.5 RDW 13.7 Plt Count 179 MPV 10.0 Immature Gran % (Auto) 0.2 Neut % (Auto) 68.1 Lymph % (Auto) 15.5 L [place] % (Auto) 9.3 Eos % (Auto) 6.4 H Baso % (Auto) 0.5 Lymph # (Auto) 1.0 L [place] # (Auto) 0.6 Eos # (Auto) 0.4 Baso # (Auto) 0.0 Abs Immat Gran (auto) 0.01 Absolute Neuts (auto) 4.2 Absolute Nucleated RBC 0.000 Nucleated RBC % (auto) 0.0 Anion Gap 13 Estim Creat Clear Calc 65.0 Estimated GFR > 60 Fasting Glucose 80 Calcium 8.7 D Magnesium 1.9 Microbiology Microbiology Results: Microbiology 01/02/23 23:35 Blood Culture - Preliminary Blood - Venous No growth after 24 hours. 01/02/23 23:35 Blood Culture - Preliminary Blood - Venous No growth after 24 hours. Assessment and Plan (1) Abnormal stress test: Status: Acute (2) Hypomagnesemia: Status: Acute (3) Hypokalemia: Status: Acute (4) Lower gastrointestinal hemorrhage: Status: Acute Plan 72-year-old male with a PMH significant for?prostate cancer s/p prostatectomy and radiation therapy for 8 weeks, hx of radiation proctitis, CAD s/p PCI in 2014, carotid artery stenosis s/p bilateral carotid stenting, hx of cerebral hemorrhage, epilepsy, HLD, HTN, restless leg syndrome, and anxiety who presents to the ED for evaluation of episodes of bright red blood per rectum earlier today. Pt will be admitted to the hospital for treatment further evaluation of lower GI bleed likely secondary to radiation proctitis. Acute symptomatic blood loss anemia due to GI bleed 3+ episodes of large amounts of bright red blood per rectum at home siimilar presentation to prior admission on 12/01/2022-12/06/2022 this mornin h/h 10.4/32.4 ( seems likel last month running h/h of 11-12 /hct 33- [address] abd pelvis:Distal rectal/anal thickening suggesting proctocolitis. no bloody bm sofar today type and cross h/h moniteriing had 1 bm-non bloody d/w GI:Likely secondary to radiation proctitis d/w cardiology /Gi: Patient will need cardiac catheterization out patiently before deciding for colonoscopy( patient had recent abnormal stress test in November 2022-please see previous admission notes for further details.) d/w gi-off antibiotics ,ppi -less likely infectious /upper gi issue added proctfoam enema Monitor H&H. Hypotension Patient initially hypotensive -thought Likely secondary to hypovolemia d/t GI losses from diarrhea and hematochezia Patient received IVF in the ED with improvement to BP. continue maintenance fluids Hold antihypertensives for now, resume as warranted Monitor BP closely MARKUS improved tobaseline, up from 1.24 on 12/05/2022 improved with hydration. Leukocytosis-resolved cxr and ua neg proctocolitis.- liklet radiation related , less likely infectious. Prolonged QTc hypomag/hypokalemia - mag/potassium repleted and resolved. QTC on tele-today 430 seconds Avoid QT prolonging agents HTN Patient hypotensive in the ED Hold antihypertensives for now, resume as indicated CAD No longer on anti-platelet therapy d/t GI bleed Continue statin Mood disorder Continue home meds Hypomagnesemia and hypokalemia: Repleted, monitor renal function and electrolyte. Full Code DVT Prophylaxis: Pneumatic boots d/t GI bleed ongoing hospitalization need: for treatment acute blood loss anemia due to GI bleed likely secondary to radiation proctitis. Patient will require close monitoring, IVF, h/h moniterring and specialist consultation. Time Spent With Patient Time: Total time managing care of this patient today ____ minutes. Quality Stroke Does the patient have a stroke diagnosis?: No VTE Prior VTE?: No VTE Risk Level:: Medical - moderate - high VTE Device Contraindication: N/A - Device Ordered VTE Drug Contraindication: Treatment Not Indicated
[2023-01-04 16:00] VITALS: BP 128/64; PULSE 75; RESP 16; TEMP 36.6; O2SAT 94
--- NOTE | 2023-01-04 16:24 | P.CDIM_ITS ---
PROVIDER RESPONSE TEXT: To clarify, the appropriate diagnosis supported by the clinical indicators: Malnutrition, moderate protein calorie QUERY TEXT: PHYSICIAN'S DOCUMENTATION REQUEST Date of Query: 01/04/2023 12:25 PM EDT Patient Name: Irwin Clark Admit Date: 01/03/2023 Dear Alyssa Carty, A review of the medical record indicates additional documentation may be needed. Please review below and update the documentation accordingly. Clinical Indicators: Height: ( ) 6'1 Weight: ( ) 67.5 kg BMI: ( ) 19.6 If possible, please provide an associated diagnosis related to the abnormal BMI, such as: Underweight Malnutrition, moderate protein calorie Cachexia Anorexia BMI is not significant Other (explain)Clinically unable to determine (explain)Thank you, China Gabriel RN Use of terms such as suspected, likely, concern for, or probable (associated with a specific diagnosi s that is being evaluated, monitored, or treated as if it exists) are acceptable and can be coded in the inpatient se tting, when documented at the time of discharge. Please use your independent medical judgment in providing your response. THIS QUERY IS PART OF THE PERMANENT MEDICAL RECORD
[2023-01-04] MEDS: Hydrocortisone 2.5 % Rectal Cr 30 GM TUBE 1 APPL PR (18:24)
[2023-01-04 19:26] VITALS: BP 139/70; PULSE 75; RESP 16; TEMP 36.4; O2SAT 97
[2023-01-04] MEDS: rOPINIRole HCL 1 MG TABLET 3 MG PO (19:35)
[2023-01-04] MEDS: Metoprolol Tartrate 12.5 MG HALFTAB PO (20:22)
[2023-01-04] MEDS: Mirtazapine 30 MG TABLET PO (20:22)
[2023-01-04] MEDS: QUEtiapine Fumarate 100 MG TABLET PO (20:22)
[2023-01-04] MEDS: PARoxetine HCL 30 MG TABLET 60 MG PO (20:22)
[2023-01-04 21:45] LABS: Hematocrit 34.4 % (42.0-52.0); Hemoglobin 11.2 g/dl (14.0-18.0)
[2023-01-05] MEDS: Lactated Ringers 1,000 ML 100 ML IVCONT (02:01)
[2023-01-05 04:00] VITALS: BP 106/72; PULSE 65; RESP 16; TEMP 36.3; O2SAT 95
[2023-01-05 06:41] LABS: Hematocrit 34.7 % (42.0-52.0); Hemoglobin 10.9 g/dl (14.0-18.0)
[2023-01-05 07:35] VITALS: BP 152/74; PULSE 71; RESP 17; TEMP 36.6; O2SAT 96
--- NOTE | 2023-01-05 08:30 | P.DS_ITS ---
DS: Providers Provider Date of Service: 01/05/23 Date of admission: 01/02/23 22:28 Primary care physician: Jayy Foster MD Consults: 01/02/23 22:28 Consult to Gastroenterology Routine Consulting Provider: Rory Murray Reason for consultation: Lower GI bleed, ?Radiation proctitis 01/03/23 17:40 Consult to Cardiology Routine Consulting Provider: [facility] [place] [facility] Reason for consultation: Cardiology clearance for colonoscopy; pt did not get PCI after previous d/c DS: Transfer Hospital Acceptance Accepting Provider: Chief Complaint: Lower GI bleed Pt is a 72-year-old male with a PMH significant for?prostate cancer s/p prostatectomy and radiation therapy for 8 weeks, hx of radiation proctitis, CAD s/p PCI in 2014, carotid artery stenosis s/p bilateral carotid stenting, hx of cerebral hemorrhage, epilepsy, HLD, HTN, restless leg syndrome, and anxiety who presents to the ED for evaluation of episodes of bright red blood per rectum earlier today. Patient states that he woke up this morning with diarrhea that continued throughout the day. Reports having 10+ episodes of diarrhea. Reports that during one of these episodes he felt a ?gush? and then produced a large amount of bright red blood per rectum. Had a total of 3 episodes of hematochezia within 1 hour. Patient also notes lower back pain associated with episodes of diarrhea. Also reports lightheadedness and dizziness for the past few days. Has been experiencing a cough and mildly increased shortness of breath. Patient also states that he has been losing weight lately despite eating more than normal. He is unsure of the amount of unintentional weight loss, but his pants continue to fit him less and less well. Denies nausea, vomiting, abdominal pain. No fever. Denies chest pain/pressure, palpitations. Of note, patient presented with similar symptoms to the ED one month prior on 12/01/2022 through 12/06/2022. Patient reports he had similar episodes of diarrhea that preceded episodes of david red blood per rectum. The 1 major difference he noted his that he is not experiencing chest pain or pressure today. Of note, patient no longer on Plavix after last admission. Discharge instructions state patient was supposed to be taking daily sulcrafate enemas for 4 weeks, however patient reports he was never told this and has not performed any enemas since discharge. In the ED today patient had 3 more episodes of diarrhea, though only one contained any david red blood. In the ED patient was afebrile but tachycardic up to 109 and tachypneic up to 30. Was initially hypotensive as low as 82/50, but BP improved to 114/68 after administration of IVF. Labs were significant for minor leukocytosis of 12.0, stable H&H 12.3/36.7, creatinine 1.76 (up from 1.24 at time of discharge on 12/05/2022), initial troponin 17.8. Hepatic function WNL. EKG demonstrated normal sinus rhythm with prolonged QTc of 503 and no evidence of ST elevations or depressions. Pt was treated with 1 L IVF. Pt will be admitted to the hospital for treatment further evaluation of lower GI bleed likely secondary to radiation proctitis. Hospital course: The patient presented with painless rectal bleeding with concern for diverticular bleeding as opposed to bleeding from radiation proctitis, given the patient's presentation with sudden and painless hematochezia. His H/H has been relatively stable; the initial plan was to have a colonoscopy done as an inpatient but following cardiology evaluation and clearance. His harvest worker field crop is recommending performing a cardiac cath before proceeding to a colonoscopy. During his last hospitalizatio with similar GI bleed, he also had chest pain and at that time was transferred to [facility] he had a stress test which was positive but did not have cardiac cath. Is hemodynamically stable and no further bleeding; diet advanced to a regular diet. Will be discharged and have outpatient cath which will be arranged by his harvest worker field crop and colonoscopy to be arranged by Dr. Murray. Initial hemoglobin was 36 and presently 34 without transfusion Final diagnoses: Acute gi bleed/rectal bleed Acute blood loss anemia Abnormal rectal DS: Diagnosis Discharge Diagnosis (1) Abnormal stress test: Status: Acute (2) Hypomagnesemia: Status: Acute (3) Hypokalemia: Status: Acute (4) Lower gastrointestinal hemorrhage: Status: Acute DS: Summary Time Spent with Patient Time attestation: Total time managing care of this patient today ____ minutes. Discharge coordination time: Greater than 30 minutes Quality: Safe Use of Opioids Does Pt have an Active Cancer Diagnosis on the Problem List?: No Quality: Stroke Does the patient have a stroke diagnosis?: No Physical Exam Vital Signs: Vital Signs: Last Vital Signs Temp 97.9 F 01/05/23 07:35 Pulse 71 01/05/23 07:35 Resp 17 01/05/23 07:35 BP 152/74 H 01/05/23 07:35 Pulse Ox 96 01/05/23 07:35 O2 Del Method Room Air 01/05/23 07:35 BMI result Body Mass Index 19.6 Const: Other: General: AO X 3, no acute distress Resp: CTA bilateral CVS: S1,S2,RRR GI: +BS, NT, no distention Skin: No rash Neuro: motor grossly intact Psych: appropriate affect DS: Data Data Completed and Pending Completed studies during hospitalization [Text1]: Procedures Transfusion of Nonautologous Red Blood Cells into Peripheral Vein, Percutaneous Approach (12/01/22) Labs on day of discharge: Laboratory Results - last 24 hr 01/04/23 01/05/23 21:29 06:10 Hgb 11.2 L 10.9 L Hct 34.4 L 34.7 L Preliminary micro results at discharge 01/02/23 23:35 Blood Culture - Preliminary Blood - Venous No growth after 48 hours. 01/02/23 23:35 Blood Culture - Preliminary Blood - Venous No growth after 48 hours. Discharge Plan Discharge Anticipated Discharge Date/Time: 01/05/23 11:25 Patient Disposition: Home, Self-Care Discharge Diagnosis: Rectal bleeding, acute blood loss anemia Referrals: Jayy Foster MD [Primary Care Provider] - 1 Week Discharge Medications: Continued quetiapine 100 mg tablet 100 mg PO BEDTIME Qty: 90 3RF clopidogrel 75 mg tablet 75 mg PO DAILY Qty: 90 3RF Hold Instructions: Resume on 12/15/22. hold until clear by cardiology lisinopril 20 mg tablet 20 mg PO DAILY Qty: 90 1RF Hold Instructions: Resume on 12/18/22. hold due to black -moniter renal function and start lisinopril according to renal function mirtazapine 30 mg tablet 30 mg PO BEDTIME 90 Days Qty: 90 1RF rosuvastatin 40 mg tablet 40 mg PO DAILY Qty: 100 2RF ropinirole 3 mg tablet 3 mg PO BEDTIME 90 Days Qty: 90 1RF zolpidem 10 mg tablet 10 mg PO BEDTIME PRN (Reason: insomnia) Qty: 30 1RF metoprolol tartrate 25 mg Tablet 25 mg PO BID alprazolam 1 mg tablet 1 mg PO BID paroxetine HCl 30 mg tablet 60 mg PO BEDTIME cyanocobalamin (vitamin B-12) 1,000 mcg Tablet 1,000 mcg PO DAILY cholecalciferol (vitamin D3) 25 mcg (1,000 unit) Tablet 25 mcg PO DAILY Centrum Silver Men [id number] mcg Tablet 1 tab PO DAILY Discontinued aspirin 81 mg capsule 81 mg PO DAILY Qty: 1 0RF Discharge Orders: Discharge Order (Routine); Ordered 01/05/23 Ordered By: Wiley Jeffries Diet: Advance to usual diet Activity on Discharge: As tolerated Stand Alone Forms: Patient Portal Discharge page Care Plan Goals: Cardiac cath and colonoscopy to be done on outpatient basis Health Concerns: rectal bleeding abnormal stress test Plan of Treatment: outpatient cardiac catha--this will be arranged by your harvest worker field crop outpatient colonscopy--to be arranged by Dr. Murray Assessment: carlton harkins Discharge Date/Time: 01/05/23 14:00
[2023-01-05] MEDS: Metoprolol Tartrate 12.5 MG HALFTAB PO (09:11)
[2023-01-05] MEDS: ALPRAZolam 0.5 MG TABLET 1 MG PO (09:11)
[2023-01-05] MEDS: Multivitamin TABLET 1 TAB PO (09:11)
[2023-01-05] MEDS: Cyanocobalamin (Vitamin B-12) 1,000 MCG TABLET 1000 MCG PO (09:11)
[2023-01-05] MEDS: 0.9 % Sodium Chloride Flush 3 ML SYRINGE IVFLUSH (09:13)
--- NOTE | 2023-01-05 11:37 | MHC.CM.PN ---
DP: PT HAS BEEN MEDICALLY CLEARED FOR DC HOME, NO SERVICES. PT HAS OWN RIDE HOME.
== END 2023-01-05 14:00 | disposition home or self-care (01) | DRG 394 ==
LOC: HO.ED 20:59 → HO.EDOVER 22:35 → HO.S3 01-03 12:47
PROVIDERS: Internal Medicine; Admitting Provider Student in an Organized Health Care Education/Training Program; Emergency Provider Emergency Medicine Emergency Medical Services; PCP Internal Medicine; Visit Provider Internal Medicine
DX: K62.7 Radiation proctitis (principal); D62 Acute posthemorrhagic anemia; N17.9 Acute kidney failure, unspecified; E44.0 Moderate protein-calorie malnutrition; Z68.1 Body mass index [BMI] 19.9 or less, adult; K62.5 Hemorrhage of anus and rectum; I95.9 Hypotension, unspecified; I25.10 Atherosclerotic heart disease of native coronary artery without angina pectoris; E87.6 Hypokalemia; F41.9 Anxiety disorder, unspecified; F32.A Depression, unspecified; E83.42 Hypomagnesemia; E78.00 Pure hypercholesterolemia, unspecified; E86.1 Hypovolemia; Z90.79 Acquired absence of other genital organ(s); Z85.46 Personal history of malignant neoplasm of prostate; Z20.822 Contact with and (suspected) exposure to COVID-19; Z91.199 Patient's noncompliance with other medical treatment and regimen due to unspecified reason; Z87.891 Personal history of nicotine dependence; Z79.02 Long term (current) use of antithrombotics/antiplatelets; Z79.899 Other long term (current) drug therapy
CPT/HCPCS: 0241U; 36415; 71045; 74176; 80048; 80053; 83605; 83735; 84484; 85014; 85018; 85025; 85027; 85610; 86850; 86900; 86901; 87040; 93005; 99221; 99285; J0696; J3475

== ENCOUNTER → 2023-01-02 22:28 | Outpatient (BNV) | payer MEDICARE, SELFPAY | PROVIDERS: Admitting Provider Student in an Organized Health Care Education/Training Program; Emergency Provider Emergency Medicine Emergency Medical Services; PCP Internal Medicine; Visit Provider Internal Medicine | DX: Z01.810 Encounter for preprocedural cardiovascular examination (principal); R94.39 Abnormal result of other cardiovascular function study | CPT/HCPCS: 99223 ==

== ENCOUNTER → 2023-01-02 22:28 | Outpatient (BNV) | payer MEDICARE, SELFPAY | PROVIDERS: Admitting Provider Student in an Organized Health Care Education/Training Program; Emergency Provider Emergency Medicine Emergency Medical Services; PCP Internal Medicine; Visit Provider Internal Medicine | DX: R94.39 Abnormal result of other cardiovascular function study (principal); E83.42 Hypomagnesemia; E87.6 Hypokalemia; K92.2 Gastrointestinal hemorrhage, unspecified | CPT/HCPCS: 99223; 99232; 99239 ==

== ENCOUNTER 2023-01-27 16:18 | Emergency (ER) | payer MEDICARE, SELFPAY ==
--- NOTE | ~2023-01-27 | CT_ITS ---
EXAMINATION: CT ABDOMEN AND PELVIS WITH CONTRAST CLINICAL INFORMATION: Diarrhea. COMPARISON: CT abdomen and pelvis dated 01/02/2023. TECHNIQUE: Multidetector volumetric images were obtained from the superior aspect of the liver through the pubic symphysis following administration 85 mL of Omnipaque 350 intravenous contrast. Sagittal and coronal reformatted images were obtained on the technologist's workstation. Oral contrast: No This CT examination was performed using dose optimization techniques as appropriate, variously including the following: *Automated exposure control *Adjustment of mA and/or kV according to patient size (this includes techniques or standardized protocols for targeted exams where dose is matched to indication/reason for exam; i.e. extremities or head) *Use of iterative reconstruction technique DLP: 442 mGy-cm FINDINGS: LUNG BASES: There is mild medial right base scar/subsegmental atelectasis. LIVER, GALLBLADDER, AND BILIARY TREE: The liver is normal in size, shape, and attenuation. No focal hepatic lesion or biliary ductal dilatation is present. The gallbladder is unremarkable with no evidence of radiopaque gallstones, gallbladder wall thickening, or obvious pericholecystic inflammatory changes. PANCREAS: Unremarkable. SPLEEN: Unremarkable. ADRENAL GLANDS: Unremarkable. KIDNEYS AND URETERS: The kidneys are normal in size, shape, and attenuation. 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 There are tiny low-attenuation bilateral renal simple appearing cysts, which are too small to fully characterize with CT. These require no imaging follow-up. No hydronephrosis, hydroureter, or calculi seen. No perinephric stranding. BLADDER: Unremarkable. GASTROINTESTINAL TRACT: There is diffuse wall thickening of the distal sigmoid and rectum, with adjacent fat stranding. No free intraperitoneal air or abscess is seen. There is no obstruction or ileus. There is mild sigmoid diverticulosis. The vermiform appendix is unremarkable. ABDOMINAL WALL: There is a tiny fat-containing umbilical hernia. There are small fat-containing bilateral inguinal hernias. LYMPH NODES: Normal. VASCULAR: There is moderate aortoiliac atherosclerotic calcifications. No abdominal aortic aneurysm or dissection is seen. PELVIC VISCERA: The prostate gland and seminal vesicles are diminutive and unremarkable. OSSEOUS STRUCTURES: There is mild degenerative disc disease at L2-L3. There is anterior spondylosis at L5-L3 and L3-L4. No acute or aggressive osseous finding is noted. CT/CT abdomen pelvis w IV con IMPRESSION: There is again diffuse wall thickening of the distal sigmoid and rectum, consistent with proctocolitis. This is similar in extent to the CT evaluation performed on 01/02/2023. There is mild diverticulosis, without acute diverticulitis. No obstruction, free intraperitoneal air or abscess is seen. The vermiform appendix appears normal. Fleischner guidelines were followed.
[2023-01-27 16:24] VITALS: BP 108/60; PULSE 88; O2SAT 97
[2023-01-27 16:40] VITALS: BP 105/56; PULSE 74; RESP 18; TEMP 36.6; O2SAT 96; BMI 19.8
--- NOTE | 2023-01-27 16:47 | ECG_ITS ---
Test Reason : WEAKNESS Blood Pressure : / mmHG Vent. Rate : 069 BPM Atrial Rate : 069 BPM P-R Int : 184 ms QRS Dur : 084 ms QT Int : 436 ms P-R-T Axes : 079 016 064 degrees QTc Int : 467 ms Normal sinus rhythm Normal ECG When compared with ECG of 02-JAN-2023 19:19, QT has shortened Referred By: Stephany Azar Electronically Signed By:JOSSE SANTAMARIA
--- NOTE | 2023-01-27 16:53 | ED_ITS ---
HPI - General Adult General Chief complaint: General Medical Stated complaint: uncontrollable bowels 1month, no food x2days Time Seen by Provider: 01/27/23 16:24 History of Present Illness HPI narrative: Patient is a 73-year-old male history of coronary artery disease was sent to [facility] was discharged there patient came back today complaining of diarrhea. The diarrhea is brown in color. It has been ongoing in the monitor. Multiple episodes a day. Also had lots of urination. Patient only has minimal abdominal pain. No fever no chills. The condition has been basically unchanged from last month. No other ingestion. No diaphoresis. Related Data Home Medications Medication Instructions Recorded Confirmed cholecalciferol (vitamin D3) 25 25 mcg PO DAILY 12/01/22 01/03/23 mcg (1,000 unit) tablet cyanocobalamin (vitamin B-12) 1,000 mcg PO DAILY 12/01/22 01/03/23 1,000 mcg tablet [id number] 300 mcg-K 60 1 tab PO DAILY 12/01/22 01/03/23 mcg-lycop 600 mcg-lutein 300 mcg tablet (Centrum Silver Men) paroxetine HCl 30 mg tablet 60 mg PO BEDTIME 12/01/22 01/03/23 Previous Rx's Medication Instructions Recorded quetiapine 100 mg tablet 100 mg PO BEDTIME #90 tabs 01/23/22 clopidogrel 75 mg tablet 75 mg PO DAILY #90 tabs 05/16/22 lisinopril 20 mg tablet 20 mg PO DAILY #90 tabs 09/12/22 mirtazapine 30 mg tablet 30 mg PO BEDTIME 90 days #90 tabs 09/17/22 rosuvastatin 40 mg tablet 40 mg PO DAILY #100 tabs 10/21/22 ropinirole 3 mg tablet 3 mg PO BEDTIME 90 days #90 tabs 11/18/22 zolpidem 10 mg tablet 10 mg PO BEDTIME PRN insomnia #30 12/14/22 tabs metoprolol tartrate 25 mg tablet 25 mg PO BID 30 days #60 tabs 01/15/23 alprazolam 1 mg tablet 1 mg PO BID PRN anxiety 30 days 01/25/23 #60 tabs Allergies Allergy/AdvReac Type Severity Reaction Status Date / Time zolpidem AdvReac Unknown sleepwalkin Verified 10/20/22 10:21 g Review of Systems 2 Review of Systems: Positive abdominal pain Yes all other systems are reviewed and are negative [facility] Past Medical History Medical History Anal discharge Depression Anxiety Prostate cancer Restless legs syndrome Epilepsy 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 Degenerative disc disease, cervical Impaired fasting glucose Pure hypercholesterolemia Bilateral carotid artery stenosis Benign essential hypertension Surgical History Hx of colonoscopy History of common carotid artery stent placement H/O radical prostatectomy History of inguinal hernia repair Family History Family History Father Cancer Mother Chronic mental illness Son In good health Daughter In good health Social History Social History Household Members: Children and Other Housing: House Do you presently have visiting nurse or other home services: No Alcohol intake: never Patient Tobacco Use Status: Former Tobacco user Quit Date: quit 7 yrs ago Tobacco use type: Cigarette Smoked in Last 30 Days: Yes e-Cigarette/Vaping Use: Never Used Second Hand Smoke Exposure: No Use of substances other than those prescribed or required for medical reasons: Yes Substance Use Type: Marijuana Advance Directives: Yes Advance Directives on File: Yes Advance Directives Date on File: 12/08/22 service: No Current occupational status: retired Cognitive needs: No Hearing needs: No Vision needs: Yes Physical Exam ED Vital Signs: Vital Signs - 24 hr 01/27/23 16:40 01/27/23 19:35 Temperature 97.9 F 97.9 F Pulse Rate 74 77 Respiratory Rate 18 16 Blood Pressure 105/56 L 116/62 Pulse Oximetry 96 96 Oxygen Delivery Method Room Air Room Air BMI result Body Mass Index 19.8 Appearance: Alert. Oriented X3. No acute distress. Eyes: Pupils equal, round and reactive to light. ENT: Pharynx normal. Neck: Normal inspection. Neck supple. No lymph nodes noted. No crepitus CVS: Normal heart rate and rhythm. Pulses normal. Normal S1 and S2 Respiratory: No respiratory distress. Breath sounds normal. No Wheezing. No rales Abdomen: Soft and nontender. No rigidity. No distention. good BS x4 Skin: Skin warm and dry. Normal skin color. Normal skin turgor. Extremities: No lower extremity edema. Neurovascular intact to all extremities. No Lacerations. No Rash Neuro: Oriented X 3. No motor deficit. No sensory deficit. Moving all extermities. No slurred speech Medications Administered Discontinued Medications Generic Name Dose Route Start Last Admin Trade Name Emily PRN Reason Stop Dose Admin Hydromorphone HCl 0.5 mg 01/27/23 16:48 01/27/23 17:10 Hydromorphone Hcl 0.5 Mg/0.5 Ml Syringe IVPUSH 01/27/23 16:49 0.5 mg ONCE ONE Administration Protocol Sodium Chloride 1,000 mls @ 999 mls/hr 01/27/23 17:00 01/27/23 19:16 Ns IV 01/27/23 18:00 Infused .Q1H1M HERMINIO Infusion Iohexol 100 ml 01/27/23 18:29 01/27/23 18:29 Iohexol 350 Mg/Ml 100 Ml Infus..Btl IV 01/27/23 18:30 85 ml ONCE ONE Administration Ondansetron HCl 4 mg 01/27/23 16:47 01/27/23 17:10 Ondansetron Hcl 4 Mg/2 Ml Vial IVPUSH 01/27/23 16:48 4 mg ONCE ONE Administration Medical Decision Making Medical Decision Making [facility] Narrative: Patient is 73 years old been having diarrhea for a long period of time. Over a month. The CT scan is essentially unchanged. Patient's abdomen is soft. There is no evidence of abscesses no perforation. There is proctocolitis noted again. Will discharge patient home. Patient's urine showed no signs of infection. There is no evidence of retention. Currently in stable condition. There is no evidence for diverticulitis. There is no obstruction there is no abscess there is no perforation noted on the CT scan. I reviewed radiology's reading of the CT scan. Differential Diagnosis Differential Diagnoses: The differential diagnosis associated with the presentation includes Obstruction, abscess, perforation, diverticulitis, urinary retention, abdominal aortic aneurysm Lab Data [facility] Lab Attestation statement: I reviewed the patient's lab results. 01/27/23 17:08 01/27/23 17:08 Labs: Lab Results 01/27/23 01/27/23 Range/Units 17:08 19:08 WBC 8.5 (4.8-10.8) X10*3/uL RBC 3.28 L (4.60-5.80) X10*6/uL Hgb 10.0 L (14.0-18.0) g/dl Hct 31.5 L (42.0-52.0) % MCV 96.0 (80.0-98.0) fL MCH 30.5 (27.0-33.0) pg MCHC 31.7 (31.0-36.0) g/dl RDW 13.8 (11.0-16.0) % Plt Count 224 D (160-400) X10*3/uL MPV 9.4 (9.4-12.4) fL Immature Gran % (Auto) 0.4 (0.0-0.4) % Neut % (Auto) 70.8 (45-73) % Lymph % (Auto) 14.4 L (20-40) % Collier % (Auto) 11.5 H (2-11) % Eos % (Auto) 2.5 (0-4) % Baso % (Auto) 0.4 (0-2) % Lymph # (Auto) 1.2 (1.2-4.9) X10*3/uL Collier # (Auto) 1.0 (0.1-1.2) X10*3/uL Eos # (Auto) 0.2 (0.0-0.4) X10*3/uL Baso # (Auto) 0.0 (0.0-0.2) X10*3/uL Abs Immat Gran (auto) 0.03 (0.00-0.03) X10*3/uL Absolute Neuts (auto) 6.1 (2.0-8.3) x10*3/uL Absolute Nucleated RBC 0.000 (0.0-0.012) X10*3/uL Nucleated RBC % (auto) 0.0 (0.0-0.2) /100WBC Sodium 137 (135-145) mmol/L Potassium 4.1 (3.3-5.1) mmol/L Chloride 104 (96-108) mmol/L Carbon Dioxide 22 (22-29) mmol/L Anion Gap 15 (12-20) BUN 20 H (9-16) mg/dL Creatinine 1.13 (0.5-1.4) mg/dL Estim Creat Clear Calc 56.8 Estimated GFR > 60 Random Glucose 92 (60-115) mg/dL Calcium 9.3 D (8.4-10.2) mg/dL Total Bilirubin 0.6 (0.0-1.0) mg/dL Direct Bilirubin 0.3 (0.0-0.5) mg/dL AST 21 (5-37) U/L ALT 11 (0-40) U/L Alkaline Phosphatase 108 (39-117) U/L Total Protein 6.4 L (6.5-8.0) g/dL Albumin 3.7 (3.5-5.0) g/dL Lipase 12 (8-78) U/L Urine Color Yellow Urine Appearance Clear Urine pH 6.0 (5.0-9.0) Ur Specific [facility] 1.010 (1.005-1.025) Urine Protein Negative (Neg-Trace) mg/dL Urine Glucose (UA) Negative (Negative) mg/dL Urine Ketones Negative (Negative) mg/dL Urine Blood Negative (Negative) Urine Nitrite Negative (Negative) Ur Leukocyte Esterase Negative (Negative) Urine RBC 0-2 (0-2) /HPF Urine WBC 0-5 (0-5) /HPF Ur Squamous Epith Cells 0-2 (0-2) /HPF Urine Bacteria None Seen (None Seen) Hyaline Casts 0-2 (0-2) /LPF Independent Interpretation I performed an independent interpretation of an: CT Scan Interpretation: No overt obstruction Radiology Impression Discussion of test interpretation with radiology: I have reviewed the radiologist's reading. External Record Review Previous [facility] record Discharge Plan Discharge Clinical Impression: Diarrhea Patient Disposition: Home, Self-Care Instructions: Acute Diarrhea (ED) Prescriptions: No Action quetiapine 100 mg tablet 100 mg PO BEDTIME Qty: 90 3RF clopidogrel 75 mg tablet 75 mg PO DAILY Qty: 90 3RF Hold Instructions: Resume on 12/15/22. hold until clear by cardiology lisinopril 20 mg tablet 20 mg PO DAILY Qty: 90 1RF Hold Instructions: Resume on 12/18/22. hold due to black -moniter renal function and start lisinopril according to renal function mirtazapine 30 mg tablet 30 mg PO BEDTIME 90 Days Qty: 90 1RF rosuvastatin 40 mg tablet 40 mg PO DAILY Qty: 100 2RF ropinirole 3 mg tablet 3 mg PO BEDTIME 90 Days Qty: 90 1RF zolpidem 10 mg tablet 10 mg PO BEDTIME PRN (Reason: insomnia) Qty: 30 1RF metoprolol tartrate 25 mg tablet 25 mg PO BID 30 Days Qty: 60 2RF alprazolam 1 mg tablet 1 mg PO BID PRN (Reason: anxiety) 30 Days Qty: 60 0RF paroxetine HCl 30 mg tablet 60 mg PO BEDTIME cyanocobalamin (vitamin B-12) 1,000 mcg Tablet 1,000 mcg PO DAILY cholecalciferol (vitamin D3) 25 mcg (1,000 unit) Tablet 25 mcg PO DAILY Centrum Silver Men [id number] mcg Tablet 1 tab PO DAILY Referrals: Jayy Foster MD [Primary Care Provider] - 01/29/23
[2023-01-27] MEDS: 0.9 % Sodium Chloride 1,000 ML 999 ML IV (17:10)
[2023-01-27] MEDS: HYDROmorphone HCl 0.5 MG/0.5 ML SYRINGE IVPUSH (17:10)
[2023-01-27] MEDS: ondansetron HCL 4 MG/2 ML VIAL IVPUSH (17:10)
[2023-01-27 17:25] LABS: MANUAL DIFF FLAG NO
[2023-01-27 17:27] LABS: Basophils Percent Auto 0.4 % (0-2); Eosinophils Absolute Auto 0.2 X10*3/uL (0.0-0.4); Eosinophils Percent Auto 2.5 % (0-4); Hematocrit 31.5 % (42.0-52.0); Imm Gran Abs Auto 0.03 X10*3/uL (0.00-0.03); Imm Gran Pct Auto 0.4 % (0.0-0.4); Lymphocytes Absolute Auto 1.2 X10*3/uL (1.2-4.9); Lymphocytes Percent Auto 14.4 % (20-40); Mean Corpuscular HGB Conc 31.7 g/dl (31.0-36.0); Mean Corpuscular Hemoglobin 30.5 pg (27.0-33.0); Mean Platelet Volume 9.4 fL (9.4-12.4); Monocytes Percent Auto 11.5 % (2-11); Neutrophils Absolute Auto 6.1 x10*3/uL (2.0-8.3); Neutrophils Percent Auto 70.8 % (45-73); Platelet Count 224 X10*3/uL (160-400); Red Blood Count 3.28 X10*6/uL (4.60-5.80); Red Cell Distribution Width 13.8 % (11.0-16.0); White Blood Count 8.5 X10*3/uL (4.8-10.8)
[2023-01-27 17:49] LABS: Alanine Aminotransferase 11 U/L (0-40); Albumin Level 3.7 g/dL (3.5-5.0); Alkaline Phosphatase 108 U/L (39-117); Anion Gap 15 (12-20); Aspartate Amino Transferase 21 U/L (5-37); Bilirubin Direct 0.3 mg/dL (0.0-0.5); Bilirubin Total 0.6 mg/dL (0.0-1.0); Blood Urea Nitrogen 20 mg/dL (9-16); Calcium 9.3 mg/dL (8.4-10.2); Carbon Dioxide 22 mmol/L (22-29); Chloride 104 mmol/L (96-108); Creatinine Clr Calc Pharmacy 56.8; Estimated Glomerular Filt Rate > 60; Glucose Random 92 mg/dL (60-115); Lipase 12 U/L (8-78); Potassium 4.1 mmol/L (3.3-5.1); Sodium 137 mmol/L (135-145); Total Protein 6.4 g/dL (6.5-8.0)
[2023-01-27] MEDS: iohexoL 350 MG/ML 100 ML INFUS..BTL IV (18:29)
[2023-01-27 19:13] LABS: Appearance Urine Clear; Color Urine Yellow; Glucose Urine UA Negative (Negative); Leukocyte Esterase Urine Negative (Negative); Nitrite Urine Negative (Negative); Urine Blood Negative (Negative); Urine Ketones Negative (Negative); Urine Protein Negative (Neg-Trace)
[2023-01-27 19:24] LABS: Bacteria Urine None Seen (None Seen); Hyaline Casts Urine 0-2 /LPF (0-2); RBC Urine 0-2 /HPF (0-2); Squamous Epithelial Cell Urine 0-2 /HPF (0-2); WBC Urine 0-5 /HPF (0-5)
[2023-01-27 19:35] VITALS: BP 116/62; PULSE 77; RESP 16; TEMP 36.6; O2SAT 96
== END 2023-01-27 20:48 | disposition home or self-care (01) ==
PROVIDERS: Emergency Provider Emergency Medicine Emergency Medical Services; PCP Internal Medicine
DX: R19.7 Diarrhea, unspecified (principal); I25.10 Atherosclerotic heart disease of native coronary artery without angina pectoris; R35.0 Frequency of micturition; R10.9 Unspecified abdominal pain; R53.1 Weakness; Z87.891 Personal history of nicotine dependence; Z79.899 Other long term (current) drug therapy
CPT/HCPCS: 36415; 74177; 80048; 80076; 81001; 83690; 85025; 93005; 96361; 96374; 96375; 99284; 99285; J1170; J2405; Q9967

== ENCOUNTER 2023-02-15 13:43 | Outpatient (AMB) | payer MEDICARE, SELFPAY ==
[2023-02-15 13:51] VITALS: BP 138/84; PULSE 78; O2SAT 92; BMI 18.5
--- NOTE | 2023-02-15 13:51 | A.OFFPC_ITS ---
Vital Signs 02/15/23 13:51 Height 6 ft 1 in Weight 140 lb 7 oz BMI 18.5 BP 138/84 Blood Pressure Location Lt brachial Position Sitting Pulse 78 Pulse Source Pulse Oximeter Pulse Oximetry (%) 92 Oxygen Delivery Method Room Air Intake Visit Reasons: [facility]/ 01-13/ Heart Associate Vice President Required: No Accompanied by: Self / Same As Patient Allergies zolpidem Adverse Reaction (Unknown, Verified 07/05/23 04:09) sleepwalking Medication List - Last Reconciled 02/15/23 by Jayy Foster MD alprazolam 1 mg PO BID PRN 30 days cholecalciferol (vitamin D3) 25 mcg PO DAILY clopidogrel 75 mg PO DAILY cyanocobalamin (vitamin B-12) 1,000 mcg PO DAILY isosorbide mononitrate ER 30 mg PO DAILY lisinopril 20 mg PO DAILY metoprolol tartrate 25 mg PO BID 30 days mirtazapine 30 mg PO BEDTIME 90 days [id number] mcg (Centrum Silver Men) 1 tab PO DAILY paroxetine HCl 60 mg PO BEDTIME quetiapine 100 mg PO BEDTIME ropinirole 3 mg PO BEDTIME 90 days rosuvastatin 40 mg PO DAILY zolpidem 10 mg PO BEDTIME PRN Tobacco use date assessed: 02/15/23 Fall risk assessment: 2 + Falls in past year Last assessed Fall Risk: 02/15/23 Dental Screening Dental Screen Date: 02/15/23 Did you have a dental visit in the last 12 months?: No Did you have a dental problem in the last 6 months where you did not have access to dental care?: No Was dental information given to patient?: No HPI [facility]/ 01-13/ Heart HPI Details Patient comes in today for his F follow up visit States that he currently feels okay He was initially found to have some abnormalities in his EKG during his admission to [facility] back in November 2022 for rectal bleeding He also had mild elevation of his troponin level at the time He was sent for an exercise stress test which came back abnormal He was subsequently transferred to [facility] for cardiac cath but due to unclear reasons, this was not done at the time Patient went back to the ER at [facility] at the beginning of December 2022 for increased rectal bleeding and recent weight loss and was readmitted to the hospital and was recommended to undergo colonoscopy for further evaluation but could not do so due to his recent abnormal EKG and stress testing He eventually underwent coronary angiogram on 01/14/2023 and was found to have significant multi-vessel coronary artery disease He was recommended by Dr. Reid Tolliver, who saw him in consultation, to undergo a likely 2 to 3 vessel CABG, including ST-LAD, SVG-OM and possible diagonal Patient states that he has not heard from cardiac surgery since although cardiac surgery OV notes did indicate that patient will need further work ups prior to his cardiac procedure including chest CT without contrast, bilateral screening carotid US and bilateral lower extremity mapping Patient will also be seeing [facility] Cardiology in a few days on 02/19/23 for cardiac clearance for him to undergo colonoscopy for his GI bleeding He presently denies any headaches or dizziness Denies any chest pains or increased SOB lately although his activity level has been minimal with very little exertion lately No nausea/vomiting, no abdominal pain No change in bowel habits noted - still has frequent diarrhea and loose stools with occasional blood in his stool States that his anxiety and mood disorder have been well-controlled lately on his current Rx [facility] Medical History Anal discharge Depression Anxiety Prostate cancer Restless legs syndrome Epilepsy 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 Degenerative disc disease, cervical Impaired fasting glucose Pure hypercholesterolemia Bilateral carotid artery stenosis Benign essential hypertension Surgical History Hx of colonoscopy History of common carotid artery stent placement H/O radical prostatectomy History of inguinal hernia repair Family History Father Cancer Mother Chronic mental illness Son In good health Daughter In good health Social History Household Members: Children and Other Housing: House Do you presently have visiting nurse or other home services: No Alcohol intake: never Patient Tobacco Use Status: Former Tobacco user Quit Date: quit 7 yrs ago Tobacco use type: Cigarette e-Cigarette/Vaping Use: Never Used Second Hand Smoke Exposure: No Substance Use Type: Marijuana Advance Directives Date on File: 12/08/22 service: No Current occupational status: retired Cognitive needs: No Hearing needs: No Vision needs: Yes Questionnaire PHQ-9 Over the last 2 weeks, how often have you been bothered by any of the following problems? 1. Little interest or pleasure in doing things: several days 2. Feeling down, depressed, or hopeless: several days 3. Trouble falling or staying asleep, or sleeping too much: several days 4. Feeling tired or having little energy: several days 5. Poor appetite or overeating: several days 6. Feeling bad about yourself - or that you are a failure or have let yourself or your family down: not at all 7. Trouble concentrating on things, such as reading the newspaper or watching television: not at all 8. Moving or speaking so slowly that other people could have noticed. Or the opposite - being so fidgety or restless that you have been moving around a lot more than usual: not at all 9. Thoughts that you would be better off or of hurting yourself in some way: not at all Total score: 5 Depression Screening Interpretation: Positive Depression Screening Follow-up: Existing condition and In treatment Depression Screening Done: Yes [id number] - PHQ-9 Billing: Yes Source: Developed by Drs. Rory Porter, Taniya Mayen, Phil Simms and colleagues, with an educational maria c from [employer]. Thrive Questionnaire Date Thrive assessed: 02/15/23 I am a: Patient What is your living situation today?: I have a steady place to live Within the past 12 months, did the food you bought not last and you didn't have the money to get more?: Never true Within the past 12 months, did you worry whether your food would run out before you got money to buy more?: Never true Do you have trouble paying for medicines?: No Do you have trouble getting transportation to medical appointments?: No Do you have trouble paying your heating and electricity bill?: No Do you have trouble taking care of your child, family member or friend?: No Do you have trouble with day-to-day activities such as bathing, preparing meals, shopping, managing finances, etc.?: No Are you currently unemployed and looking for a job?: No Are you interested in more education?: No Please select the resources that you would like help with: None Currently or been in a relationship where the following occur: no concerns reported AUDIT C Alcohol Use Questionnaire (AUDIT-C) 1. How often do you have a drink containing alcohol?: Never 3. How often do you have six or more drinks on one occasion?: Never Total Score: 0 Score Reviewed/Action Taken: Yes ELISA-7 AMB Questionnaire ELISA-7 Date ELISA - 7 assessed: 02/15/23 Feeling nervous, anxious, or on edge: 3 = Nearly every day Not being able to stop or control worryin = Nearly every day Worrying too much about different things: 3 = Nearly every day Trouble relaxin = Nearly every day Being so restless that it is hard to sit still: 3 = Nearly every day Becoming easily annoyed or irritable: 3 = Nearly every day Feeling afraid as if something awful might happen: 3 = Nearly every day Total ELISA-7 score (0-4 normal; 5-9 mild; 10-14 moderate; 15-21 severe): 21 Source: Developed by Drs. Rory Porter, Taniya Mayen, Phil Simms and colleagues, with an educational maria c from [employer]. Review of Systems Const Reports difficulty sleeping (chronic), Denies fatigue, Denies fever(s) and Denies headache(s) ENT Denies dysphagia, Denies dizziness, Denies otalgia, Denies headache(s), Reports neck pain (chronic), Denies odynophagia and Denies sore throat Card Denies chest pain, Denies palpitations and Denies dyspnea Resp Denies cough, Denies dyspnea and Denies wheezing GI Denies abdominal pain, Reports hematochezia (at times), Denies constipation, De nies dysphagia, Denies heartburn, Reports diarrhea (recurrent), Reports loose stools, Denies nausea, Denies odynophagia and Denies vomiting Denies dysuria, Denies nocturia and Denies urinary frequency Musc Denies back pain and Reports neck pain (chronic) Skin/Breast Denies rash Neuro Denies dizziness and Denies headache(s) Psych Reports anxiety (better controlled lately) and Reports depression (controlled) Endo Denies fatigue and Denies palpitations Simba/Lymph Denies easy bruising Aller/Immun Denies wheezing Physical exam (Primary Care) Vital Signs: Last Vital Signs Pulse 78 02/15/23 13:51 BP 138/84 02/15/23 13:51 Pulse Ox 92 02/15/23 13:51 Oxygen Delivery Method Room Air 02/15/23 13:51 BMI result Body Mass Index 18.5 Tobacco/Smoking Status: Tobacco use Status Tobacco use date assessed 02/15/23 02/15/23 13:55 Patient Tobacco Use Status Former Tobacco user 02/15/23 13:55 Tobacco use type Cigarette 02/15/23 13:55 e-Cigarette/Vaping Use Never Used 02/15/23 13:55 PHQ-9: PHQ-9 Score PHQ-9: Total score 5 02/15/23 14:27 Depression Screening Interpretation: Positive Depression Screening Follow-up: Existing condition and In treatment Thrive Assessment: Date of Thrive Assessment Date Thrive assessed 02/15/23 02/15/23 13:55 Currently or been in a relationship where the following occur: no concerns reported Const General: no acute distress and alert HENMT Throat: Yes posterior oropharynx normal and Yes tonsils normal Neck Neck: Yes no lymphadenopathy and Yes supple Thyroid: Thyroid normal Resp Auscultation: clear to auscultation bilaterally, no rales and no wheezes Cardio Rate: regular rate Rhythm: regular rhythm Heart sounds: no murmurs GI Palpation (GI): Soft to palpation and nontender Auscultation: normal bowel sounds General: Yes no CVA tenderness Back/Spine/Pelvis Back: no CVA tenderness Cervical Spine: Cervical spine tenderness (chronic) Skin Rashes: no rashes Extrem General: Yes no clubbing, cyanosis or edema Assessment and Plan Assessment & Plan (1) Coronary artery disease: Code(s): I25.10 - Atherosclerotic heart disease of [place] coronary artery without angina pectoris Qualifiers: Coronary Disease-Associated Artery/Lesion type: [place] artery [place] vs. transplanted heart: [place] heart Associated angina: with stable angina Qualified Code(s): I25.118 - Atherosclerotic heart disease of [place] coronary artery with other forms of angina pectoris Plan: Cardiac catheterization done at [facility] on 01/14/2023 revealed (+) significant multi-vessel coronary artery disease He was subsequently seen by Dr. Reid Tolliver in consultation and was recommended to undergo CABG, likely 2 to [address]-LAD, SVG-OM and possible diagonal Patient states that he has not heard from cardiac surgery since although cardiac surgery OV notes indicated that patient will need further work ups prior to his cardiac procedure including chest CT without contrast, bilateral screening carotid US and bilateral lower extremity mapping He is thus encouraged to reach out to [facility]iology regarding these as the work ups will need to be completed before they will schedule him for his bypass surgery Continue Isosorbide Monomitrate ER 30 mg QD and Aspirin 81 mg QD (2) Bilateral carotid artery stenosis: Comment: S/P bilateral carotid stenting with Dr. Almazan Code(s): I65.23 - Occlusion and stenosis of bilateral carotid arteries Plan: Was following up with vascular surgery regularly before but has not been back to see them since 2019 Repeat carotid US done a few months ago revealed (+) stent across the RIGHT carotid bulb/proximal ICA with normal velocities. No evidence of hemodynamically significant in-stent stenosis; (+) stent across the LEFT carotid bulb/proximal ICA with elevated velocity in the distal aspect of the stent possibly representing a near 50% stenosis He will likely need to have this rechecked as part of his work up prior to his cardiac bypass He was on Clopidogrel 75 mg QD but this was stopped a few months ago when he had increased rectal bleeding Continue Aspirin 81 mg QD (3) Pure hypercholesterolemia: Code(s): E78.00 - Pure hypercholesterolemia, unspecified Plan: Reinforced low cholesterol diet Continue Rosuvastatin 40 mg QD Will recheck his labs and fasting lipids as scheduled for follow up in 3 months (4) Benign essential hypertension: Code(s): I10 - Essential (primary) hypertension Plan: Reinforced low sodium diet - goal is systolic BP of at least 130 mm or less Continue Lisinopril 20 mg QD (5) Impaired fasting glucose: Code(s): R73.01 - Impaired fasting glucose Plan: HgbA1c remains normal and unchanged at 5.2% on his recent labs Reinforced low calorie diet/exercise as tolerated (6) Degenerative disc disease, cervical: Code(s): M50.30 - Other cervical disc degeneration, unspecified cervical region Plan: Reinforced activity and weight-lifting restrictions to avoid aggravating his neck pain Used to take Oxycodone for pain but he has stopped taking them a few months ago and now uses CBD oil, which he feels work just as well (7) Radiation colitis: Comment: S/P colonoscopy in 05/2012 and on 12/11/2021 - due for repeat in 2 to 3 years Code(s): K52.0 - Gastroenteritis and colitis due to radiation Plan: Was started on a trial of bile salt binders in the past to help slow down his diarrhea but patient could not fill Rx due to cost, as the Rx is not covered by his insurance; patient has also tried OTC Imodium in the past with no improvement of symptoms Patient recently had a POSITIVE COLOGUARD test result and was subsequently referred to GI for colonoscopy Colonoscopy done on 12/11/2021 revealed (+) polyp that was a tubular adenoma on pathology, rectal ulceration, radiation proctitis (RAVE) and severe diverticular disease He was recommended to undergo repeat colonoscopy for further evaluation of his recent increased rectal bleeding but this has not been completed yet due to patient's cardiac status - he cannot be cleared until he had his CABG done Follow up with GI as scheduled (8) Constipation: Code(s): K59.00 - Constipation, unspecified Qualifiers: Constipation type: unspecified constipation type Qualified Code(s): K59.00 - Constipation, unspecified Plan: Encouraged to increased his oral fluids and dietary fiber intake daily Continue Miralax 17 gm QD - he is reminded again to take this daily for it to work effectively Continue Colace 100 mg Q HS PRN (9) Epilepsy: Comment: no seizures since 2014 Code(s): G40.909 - Epilepsy, unspecified, not intractable, without status epilepticus Qualifiers: Epilepsy type: unspecified Intractability: not intractable Status epilepticus: without status epilepticus Qualified Code(s): G40.909 - Epilepsy, unspecified, not intractable, without status epilepticus Plan: Stable - follow up with neurology as scheduled (10) Restless legs syndrome: Code(s): G25.81 - Restless legs syndrome Plan: Continue Ropinirole 3 mg Q HS (11) Prostate cancer: Comment: S/P radiation Tx and hormonal Tx with Bicalutamide x 2.5 years Code(s): C61 - Malignant neoplasm of prostate Plan: Follow up with urology as scheduled PSA was normal when last checked a few months ago (12) Insomnia: Code(s): G47.00 - Insomnia, unspecified Qualifiers: Insomnia type: unspecified Qualified Code(s): G47.00 - Insomnia, unspecified Plan: Sleep hygiene reinforced Continue Zolpidem 10 mg Q HS PRN (13) Anxiety: Code(s): F41.9 - Anxiety disorder, unspecified Plan: Continue Paroxetine 60 mg QD, Hydroxyzine 50 mg TID PRN and Alprazolam 1 mg BID PRN (14) Depression: Code(s): F32.9 - Major depressive disorder, single episode, unspecified Qualifiers: Depression Type: major depressive disorder Major depression recurrence: recurrent Active/Remission status: currently active Major depression episode severity: unspecified Qualified Code(s): F33.9 - Major depressive disorder, recurrent, unspecified Plan: Continue Quetiapine 100 mg Q HS, Mirtazapine 30 mg Q HS and Paroxetine 60 mg QD Plan Follow up as scheduled in March 2023 Medications: New isosorbide mononitrate ER 30 mg PO DAILY 30 tabs 1RF 30 days Coding Level of Care Code Est Pt Level 4 (06927) Diagnoses Coronary artery disease of [place] artery of [place] heart with stable angina pectoris I25.118 Coronary Disease-Associated Artery/Lesion type: [place] artery [place] vs. transplanted heart: [place] heart Associated angina: with stable angina Bilateral carotid artery stenosis I65.23 Pure hypercholesterolemia E78.00 Benign essential hypertension I10 Impaired fasting glucose R73.01 Degenerative disc disease, cervical M50.30 Radiation colitis K52.0 Constipation, unspecified constipation type K59.00 Constipation type: unspecified constipation type Nonintractable epilepsy without status epilepticus, unspecified epilepsy type G40.909 Epilepsy type: unspecified Intractability: not intractable Status epilepticus: without status epilepticus Restless legs syndrome G25.81 Prostate cancer C61 Insomnia, unspecified type G47.00 Insomnia type: unspecified Anxiety F41.9 Episode of recurrent major depressive disorder, unspecified depression episode severity F33.9 Depression Type: major depressive disorder Major depression recurrence: recurrent Active/Remission status: currently active Major depression episode severity: unspecified
== END 2023-02-15 14:45 | disposition home or self-care (01) ==
PROVIDERS: PCP Internal Medicine; Visit Provider Internal Medicine
DX: I25.118 Atherosclerotic heart disease of native coronary artery with other forms of angina pectoris (principal); C61 Malignant neoplasm of prostate; F33.9 Major depressive disorder, recurrent, unspecified; G40.909 Epilepsy, unspecified, not intractable, without status epilepticus; I65.23 Occlusion and stenosis of bilateral carotid arteries; E78.00 Pure hypercholesterolemia, unspecified; I10 Essential (primary) hypertension; R73.01 Impaired fasting glucose; M50.30 Other cervical disc degeneration, unspecified cervical region; K52.0 Gastroenteritis and colitis due to radiation; K59.00 Constipation, unspecified; G25.81 Restless legs syndrome
CPT/HCPCS: 99214

== ENCOUNTER 2023-02-19 13:08 | Outpatient (AMB) | payer MEDICARE, SELFPAY ==
[2023-02-19 13:15] VITALS: BP 132/84; PULSE 75; BMI 19.0
--- NOTE | 2023-02-19 13:15 | A.OFFVIS_ITS ---
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 Required: No Allergies zolpidem Adverse Reaction (Unknown, Verified 02/19/23 13:17) sleepwalking Medication List - Last Reconciled 02/19/23 by CLAUDIA Nix alprazolam 1 mg PO BID PRN 30 days cholecalciferol (vitamin D3) 25 mcg PO DAILY clopidogrel 75 mg PO DAILY cyanocobalamin (vitamin B-12) 1,000 mcg PO DAILY isosorbide mononitrate ER 30 mg PO DAILY lisinopril 20 mg PO DAILY metoprolol tartrate 25 mg PO BID 30 days mirtazapine 30 mg PO BEDTIME 90 days [id number] mcg (Centrum Silver Men) 1 tab PO DAILY paroxetine HCl 60 mg PO BEDTIME quetiapine 100 mg PO BEDTIME ropinirole 3 mg PO BEDTIME 90 days rosuvastatin 40 mg PO DAILY zolpidem 10 mg PO BEDTIME PRN HPI pre-op colonoscopy HPI Details Irwin is a 73-year-old male with past medical history of hypertension, hyperlipidemia, impaired fasting glucose, who was admitted to [facility] 8 2022 with bloody diarrhea and report of chest discomfort. His EKG did have T-wave inversions which were nonspecific. His troponins were mildly elevated any underwent an exercise stress test which was abnormal. He was transferred to [facility] however cardiac catheterization was not completed. He was then readmitted to [facility] for rectal bleeding, diarrhea. Colonoscopy was recommended however he was not cardiac cleared. He was set up for outpatient cardiac catheterization which was completed showing significant coronary artery disease. He now presents for follow-up. Today he is requesting clearance for his colonoscopy. He says he met with the cardiac surgeon on 01/14/2023 however has not heard from cardiac surgery regarding any surgery date or follow-up. He tells me he has been feeling well. No recent chest discomfort at rest or with activity. He denies shortness of breath, palpitations, presyncope, syncope, PND, orthopnea or edema. He is having chronic issues with diarrhea, bloody at times. He would like to have his colonoscopy as soon as able. Tells me he smokes marijuana several times a day and is taking his medications as directed. He is with a wood stove and Pellet stove. Needs to lift wood pieces and pellet bags. 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 Degenerative disc disease, cervical Impaired fasting glucose Pure hypercholesterolemia Bilateral carotid artery stenosis Benign essential hypertension Surgical History Hx of colonoscopy History of common carotid artery stent placement H/O radical prostatectomy History of inguinal hernia repair Family History Father Cancer Mother Chronic mental illness Son In good health Daughter In good health Social History Household Members: Children and Other Housing: House Do you presently have visiting nurse or other home services: No Alcohol intake: never Patient Tobacco Use Status: Former Tobacco user Quit Date: quit 7 yrs ago Tobacco use type: Cigarette e-Cigarette/Vaping Use: Never Used Second Hand Smoke Exposure: No Substance Use Type: Marijuana Advance Directives Date on File: 12/08/22 service: No Current occupational status: retired Cognitive needs: No Hearing needs: No Vision needs: Yes Review of Systems Const All systems reviewed & are unremarkable except as noted in HPI and below ENT Denies dizziness Card Denies chest pain, Denies chest pain at rest, Denies chest pain with activity, Denies rapid heart rate, Denies pedal edema, Denies edema, Denies leg edema, Denies lightheadedness, Denies palpitations, Denies dyspnea, Reports dyspnea on exertion and Denies orthopnea Resp Denies cough, Denies dyspnea and Reports dyspnea on exertion GI Denies hematochezia and Denies change in stool character Musc Denies abnormal gait, Denies limited range of motion, Denies muscle cramps, Denies muscle weakness, Denies numbness, Denies radiating pain into limb, Denies stiffness and Denies tingling Neuro Denies abnormal gait, Denies dizziness, Denies numbness and Denies tingling Endo Denies palpitations Physical Exam Vital Signs: Last Vital Signs Pulse 75 02/19/23 13:15 BP 132/84 02/19/23 13:15 BMI result Body Mass Index 19.0 Const General: cooperative, comfortable and no acute distress Orientation/consciousness: patient oriented x3 Neck Neck: Yes normal visual inspection Resp Effort & Inspection: normal respiratory effort Auscultation: clear to auscultation bilaterally, no crackles, no rales, no rhonchi and no wheezes Cardio Jugular venous distension: no JVD Rate: regular rate Rhythm: regular rhythm Heart sounds: S1 normal heart sound present, S2 normal heart sound present, no murmurs and no rubs Neuro General: patient oriented x3 Extrem General: Yes normal to inspection Psych Appearance: grossly normal Mental Status: mental status grossly normal Speech and movement: Normal speech and movement present Assessment & Plan Assessment & Plan (1) Coronary artery disease: Code(s): I25.10 - Atherosclerotic heart disease of [place] coronary artery without angina pectoris Qualifiers: Coronary Disease-Associated Artery/Lesion type: [place] artery [place] vs. transplanted heart: [place] heart Associated angina: with stable angina Qualified Code(s): I25.118 - Atherosclerotic heart disease of [place] coronary artery with other forms of angina pectoris Plan: [facility] admission November 2022 with GI bleeding. Found to have EKG abnormality, mildly elevated troponin at that time. He did under go an exercise stress test which was abnormal with just over 1 minute of exercise. He was transferred to [facility] for cardiac catheterization however was not completed. He then was readmitted to [facility] for recurrent GI bleeding last month. Colonoscopy was recommended however with his recent abnormal stress test it was placed on hold. As an outpatient he underwent cardiac catheterization on 01/14/2023 showing significant coronary artery disease with recommendation for Coronary artery bypass grafting. He did meet with Dr. Tolliver that day. Today he reports that he has not heard from cardiac surgery since that time. I did call their office and was told that patient canceled 2 appointments which he said was for testing. Informed him that he needs to have testing in order to then have cardiac surgery. Colonoscopy will remain on hold till after Coronary artery bypass grafting. Patient currently reports that he has not been getting recent chest discomfort. He tolerates normal ADLs without reported difficulty. Will have him continue on current medical management including aspirin, Plavix, metoprolol, isosorbide, lisinopril, rosuvastatin. Signs and symptoms of angina reviewed. Instructed on light physical activity. Emergency care if needed for symptoms. Cardiology office visit in 2-3 months, sooner if needed. He had been following with [facility] however is now changing to [facility] cardiovascular. Dr. 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 (2) Chest pain: Code(s): R07.9 - Chest pain, unspecified Qualifiers: Chest pain type: chest pain due to myocardial ischemia Ischemic chest pain type: stable angina pectoris Qualified Code(s): I20.89 - Other forms of angina pectoris (3) Abnormal stress test: Code(s): R94.39 - Abnormal result of other cardiovascular function study (4) S/P cardiac catheterization: Comment: 01/14/2023 showing ostial left main 80% stenosis, diffuse disease in the proximal to mid LAD 70-80% stenosis, moderate CAD in the circumflex and RCA, normal LVEDP Code(s): Z98.890 - Other specified postprocedural states (5) Preop cardiovascular exam: Code(s): Z01.810 - Encounter for preprocedural cardiovascular examination Plan: Patient is high cardiac risk to undergo colonoscopy at this time. He needs to undergo coronary artery bypass grafting in the near future. Following that and recovery he will be re-evaluated. He continues to report daily diarrhea, bloody at times. Will forward this note to gastroenterology Coding Level of Care Code Est Pt Level 4 (21211) Diagnoses Coronary artery disease of [place] artery of [place] heart with stable angina pectoris I25.118 Coronary Disease-Associated Artery/Lesion type: [place] artery [place] vs. transplanted heart: [place] heart Associated angina: with stable angina Stable angina pectoris I20.89 Chest pain type: chest pain due to myocardial ischemia Ischemic chest pain type: stable angina pectoris Abnormal stress test R94.39 S/P cardiac catheterization Z98.890 Preop cardiovascular exam Z01.810 Time Spent (min) 35
== END 2023-02-19 14:05 | disposition home or self-care (01) ==
PROVIDERS: PCP Internal Medicine; Visit Provider Nurse Practitioner Family
DX: I25.118 Atherosclerotic heart disease of native coronary artery with other forms of angina pectoris (principal); I20.89 Other forms of angina pectoris; R94.39 Abnormal result of other cardiovascular function study; Z98.890 Other specified postprocedural states; Z01.810 Encounter for preprocedural cardiovascular examination
CPT/HCPCS: 99214

== ENCOUNTER → 2023-02-19 13:08 | Outpatient (BNVA) | payer MEDICARE, SELFPAY | PROVIDERS: PCP Internal Medicine; Visit Provider Nurse Practitioner Family | DX: Z01.810 Encounter for preprocedural cardiovascular examination (principal); I25.118 Atherosclerotic heart disease of native coronary artery with other forms of angina pectoris; R94.39 Abnormal result of other cardiovascular function study; Z98.890 Other specified postprocedural states | CPT/HCPCS: 99212 ==

== ENCOUNTER 2023-07-13 12:55 | Outpatient (REF) | payer MEDICARE, SELFPAY ==
--- NOTE | ~2023-07-13 | US_ITS ---
EXAMINATION: US LOWER EXTREMITY VENOUS PREOPERATIVE MAPPING FOR BYPASS SURGERY, BILATERAL CLINICAL INDICATION: Aortic calcification, preop, carotid bruit COMPARISON: None. TECHNIQUE: Venous ultrasound of the bilateral lower extremities was performed to map the great saphenous vein and small saphenous vein in preparation for bypass surgery. FINDINGS: 1. SUPERFICIAL ULTRASOUND OF RIGHT LOWER EXTREMITY: GREAT SAPHENOUS VEIN: Saphenofemoral Junction: 0.5 cm; Depth: 2.1 cm Proximal Thigh: 0.4 cm; Depth: 1.8 cm Mid Thigh: 0.2 cm; Depth: 1.2 cm Above Knee: 0.2 cm; Depth: 0.6 cm At Knee: 0.3 cm; Depth: 0.3 cm Below Knee: 0.3 cm; Depth: 0.2 cm Mid Calf: 0.3 cm; Depth: 0.2 cm Ankle: 0.3 cm; Depth: 0.1 cm SMALL SAPHENOUS VEIN: Saphenopopliteal Junction: Not visualized Proximal: 0.1 cm; Depth: 0.6 cm Mid: 0.1 cm; Depth: 0.2 cm Distal: 0.1 cm; Depth: 0.2 cm 2. SUPERFICIAL ULTRASOUND OF LEFT LOWER EXTREMITY: GREAT SAPHENOUS VEIN: Saphenofemoral Junction: 0.3 cm; Depth: 1.7 cm Proximal Thigh: 0.4 cm; Depth: 1.1 cm Mid Thigh: 0.2 cm; Depth: 1.1 cm Above Knee: 0.2 cm; Depth: 1.0 cm At Knee: 0.2 cm; Depth: 0.4 cm Below Knee: 0.2 cm; Depth: 0.2 cm Mid Calf: 0.2 cm; Depth: 0.2 cm Ankle: 0.1 cm; Depth: 0.3 cm SMALL SAPHENOUS VEIN: Saphenopopliteal Junction: Not visualized Proximal: Not visualized Mid: 0.04 cm; Depth: 0.4 cm Distal: 0.1 cm; Depth: 0.3 cm US/US venous duplex LE BI IMPRESSION: Bilateral great saphenous and small saphenous vein measurements, as described above. Of note, the bilateral small saphenous veins were not visualized at the saphenofemoral junction and the proximal segment of the left small saphenous vein was also not visualized.
--- NOTE | ~2023-07-13 | US_ITS ---
EXAMINATION: US EXTRACRANIAL CAROTID DUPLEX, BILATERAL CLINICAL INFORMATION: Carotid Bruit COMPARISON: Carotid ultrasound 02/25/2022 TECHNIQUE: Real-time ultrasound and Doppler techniques (integrating B-mode 2-D vascular images, Doppler spectral analysis and color-flow Doppler imaging) were utilized to interrogate the extracranial carotid arteries, the vertebral arteries and proximal subclavian arteries bilaterally. The degree of stenosis is determined by criteria similar to NASCET. FINDINGS: Right Side: 1. There is no atherosclerotic plaque seen in the bifurcation/proximal ICA region. 2. The common carotid artery PSV proximally is 69 cm/s and distally 67 cm/s. 3. The proximal internal carotid artery velocities are 130 cm/s systolic and 47 cm/s diastolic. 4. The proximal external carotid artery PSV is 318 cm/s. 5. The vertebral artery shows antegrade flow. 6. The subclavian artery waveforms are normal. Left Side: 1. There is no atherosclerotic plaque seen in the bifurcation/proximal ICA region. 2. The common carotid artery PSV proximally is 81 cm/s and distally 55 cm/s. 3. The proximal internal carotid artery velocities are 149 cm/s systolic and 54 cm/s diastolic. 4. The proximal external carotid artery PSV is 305 cm/s. 5. The vertebral artery shows antegrade flow. 6. The subclavian artery waveforms are normal. US/US carotid duplex BI IMPRESSION: 1. RIGHT: Mildly elevated velocity near the proximal end of the ICA stent. 2. LEFT: Mildly elevated velocity near the proximal end of the ICA stent.
== END 2023-07-13 12:56 | disposition home or self-care (01) ==
LOC: HO.US 12:55
PROVIDERS: PCP Internal Medicine; Visit Provider Thoracic Surgery (Cardiothoracic Vascular Surgery)
DX: Z01.810 Encounter for preprocedural cardiovascular examination (principal); I70.0 Atherosclerosis of aorta; I25.10 Atherosclerotic heart disease of native coronary artery without angina pectoris; R09.89 Other specified symptoms and signs involving the circulatory and respiratory systems
CPT/HCPCS: 93880; 93970

== ENCOUNTER 2023-07-28 04:23 | Inpatient (IN) | payer MEDICARE, SELFPAY ==
[2023-07-28] VITALS (12 sets, daily range): BP systolic 89–148; BP diastolic 51–76; PULSE 76–90; RESP 14–21; TEMP 36.4–37.2; O2SAT 92–99; BMI 18.0; BMI 16.1
--- NOTE | ~2023-07-28 | CT_ITS ---
EXAMINATION: CT ABDOMEN AND PELVIS WITHOUT CONTRAST CLINICAL INFORMATION: Pain, injury. COMPARISON: CT abdomen and pelvis from 01/27/2023 TECHNIQUE: Multidetector volumetric imaging was performed from the superior aspect of the liver through the pubic symphysis. Sagittal and coronal reformatted images were obtained on the technologist's workstation. This CT examination was performed using dose optimization techniques as appropriate, variously including the following: *Automated exposure control *Adjustment of mA and/or kV according to patient size (this includes techniques or standardized protocols for targeted exams where dose is matched to indication/reason for exam; i.e. extremities or head) *Use of iterative reconstruction technique DLP: 378 mGy-cm FINDINGS: LUNG BASES: Moderate centrilobular emphysema within the visualized lung bases. Multiple small clustered noncalcified nodular foci in the left lower lobe are consistent with sequela of inflammation or infection of the small airways. Based on Fleischner Society guidelines, no chest CT imaging follow-up is recommended. No focal consolidation or pleural effusion. HEPATOBILIARY: Liver has normal size, shape, and attenuation. Gallbladder has a normal appearance. No dilated bile ducts. PANCREAS: No edema, pancreatic ductal dilatation or mass. There is old coarse calcification in the posterior inferior aspect of the pancreatic head. SPLEEN: Normal. ADRENAL GLANDS: Normal. KIDNEYS AND URETERS: Kidneys are normal in size. No hydronephrosis. 0.3 cm calyceal stone is present in the left lower pole. Chronic bilateral perinephric edema is present without evidence of focal organized perinephric collection. The ureters are unremarkable. BLADDER: There appears to be mild thickening of the wall of the bladder inferiorly and mild edema is present within the perivesical fat. This is presumably reactive to the perirectal inflammation. BOWEL AND PERITONEUM: No dilated loops of bowel. The appendix is normal. Diverticula of the sigmoid colon without evidence of diverticulitis. The wall of the rectum is mildly thickened and edema is present within the mesorectal compartment. Multiple lymph nodes are seen within the mesorectal compartment, largest 0.6 cm short axis dimension. ABDOMINAL WALL: A very small fat-containing hernia seen in the periumbilical region. VASCULATURE: There is atherosclerotic calcification of the abdominal aorta and iliac arteries. The infrarenal abdominal aorta measures up to 2.3 cm AP diameter. LYMPH NODES: No retroperitoneal lymphadenopathy. There is chronic lymphadenopathy adjacent to inferior mesenteric/superior rectal vessels. The largest lymph node in the presacral region is 0.9 cm short axis dimension. PELVIC VISCERA: Prostate gland is not definitively seen. MUSCULOSKELETAL: Xnli-vl-yiolyprh discovertebral degenerative change at L2-L3. Otherwise, mild spondylosis of the visualized spine. No acute or suspicious osseous abnormality. Pelvic bones and proximal femurs are intact. CT/CT abdomen pelvis wo IV con IMPRESSION: * In this patient with history of injury, there is no evidence of traumatic pathology involving the solid or hollow viscera on this noncontrast examination. No hemoperitoneum or pneumoperitoneum. * The imaging findings are consistent with proctitis with presence of reactive lymphadenopathy. Similar abnormalities were seen on 01/27/2023. No perirectal abscess. * Diverticula of the sigmoid colon without diverticulitis. * Moderate centrilobular emphysema in the visualized lung bases, and small clustered nodules in the posterior left lower lobe are consistent with sequela of bronchiolitis.
--- NOTE | 2023-07-28 04:38 | MHC.EDTECH ---
Patient came in by ambulance,changed into hospital attire,vitals taken,call vargas in reach
[2023-07-28 05:00] LABS: Basophils Percent Auto 0.3 % (0-2); Eosinophils Absolute Auto 0.3 X10*3/uL (0.0-0.4); Eosinophils Percent Auto 2.3 % (0-4); Hematocrit 31.9 % (42.0-52.0); Hemoglobin 10.2 g/dl (14.0-18.0); Imm Gran Abs Auto 0.05 X10*3/uL (0.00-0.03); Imm Gran Pct Auto 0.4 % (0.0-0.4); Lymphocytes Absolute Auto 0.9 X10*3/uL (1.2-4.9); Lymphocytes Percent Auto 7.5 % (20-40); Mean Corpuscular Hemoglobin 29.7 pg (27.0-33.0); Mean Platelet Volume 9.6 fL (9.4-12.4); Monocytes Absolute Auto 1.1 X10*3/uL (0.1-1.2); Monocytes Percent Auto 9.3 % (2-11); Neutrophils Absolute Auto 9.4 x10*3/uL (2.0-8.3); Neutrophils Percent Auto 80.2 % (45-73); PLT CLUMP 1; Red Blood Count 3.43 X10*6/uL (4.60-5.80); Red Cell Distribution Width 17.5 % (11.0-16.0); SCAN SMEAR FLAG 1
[2023-07-28 05:01] LABS: MANUAL DIFF FLAG NO; White Blood Count 11.7 X10*3/uL (4.8-10.8)
[2023-07-28 05:06] LABS: Platelet Count 256 X10*3/uL (160-400)
[2023-07-28 05:13] LABS: Anion Gap 14 (12-20); Blood Urea Nitrogen 50 mg/dL (9-16); Carbon Dioxide 16 mmol/L (22-29); Chloride 112 mmol/L (96-108); Estimated Glomerular Filt Rate 21; Glucose Random 146 mg/dL (60-115); Potassium 5.3 mmol/L (3.3-5.1); Sodium 137 mmol/L (135-145)
[2023-07-28 05:14] LABS: Alanine Aminotransferase 14 U/L (0-40); Albumin Level 3.6 g/dL (3.5-5.0); Alkaline Phosphatase 127 U/L (39-117); Aspartate Amino Transferase 23 U/L (5-37); Bilirubin Total 0.4 mg/dL (0.0-1.0); Calcium 9.4 mg/dL (8.4-10.2); Lipase 29 U/L (8-78); Total Protein 7.3 g/dL (6.5-8.0)
--- NOTE | 2023-07-28 06:21 | MHC.EDTECH ---
Patient ambulated to the bathroom with a steady gait, hourly rounds and vitals completed
--- NOTE | 2023-07-28 06:37 | ED_ITS ---
HPI - General Adult General Chief complaint: General Medical Stated complaint: INCONTINENT Time Seen by Provider: 07/28/23 06:36 Source: patient and EMS Mode of arrival: EMS Limitations: no limitations History of Present Illness HPI narrative: Patient is a 73 year old assigned male at with a history of CAD, epilepsy, chronic proctitis, depression, and anxiety presenting to the emergency department today with bowel incontinence. Patient states that over the last few months he has been waking up covered in his own stool. Patient states that it is chronically diarrhea and he has been trying to take immodium with no improvement. Patient denies any dizziness, lightheadedness, abdominal pain, nausea, vomiting, fever, chills, blurry vision, double vision, loss of vision, chest pain, difficulty breathing, shortness of breath, back pain, night sweats, pain with urination, increased urinary frequency, increased urinary urgency, blood in his urine or stool, syncope or a near syncopal episode, recent trauma or falls, or any other complaints at this time. Onset (ago): month(s) Relieving factors: none Exacerbating factors: none Associated symptoms: denies other symptoms Treatments prior to arrival: other (immodium) Related Data Home Medications Medication Instructions Recorded Confirmed cholecalciferol (vitamin D3) 25 25 mcg PO DAILY 12/01/22 07/28/23 mcg (1,000 unit) tablet cyanocobalamin (vitamin B-12) 1,000 mcg PO DAILY 12/01/22 07/28/23 1,000 mcg tablet [id number] 300 mcg-K 60 1 tab PO DAILY 12/01/22 07/28/23 mcg-lycop 600 mcg-lutein 300 mcg tablet (Centrum Silver Men) aspirin 81 mg tablet,delayed 81 mg PO DAILY 02/19/23 07/28/23 release (Adult Low Dose Aspirin) paroxetine HCl 30 mg tablet 60 mg PO BEDTIME 07/28/23 07/28/23 Previous Rx's Medication Instructions Recorded clopidogrel 75 mg tablet 75 mg PO DAILY #100 tabs 02/21/23 ropinirole 3 mg tablet 3 mg PO BEDTIME #100 tabs 02/21/23 mirtazapine 30 mg tablet 30 mg PO BEDTIME 90 days #90 tabs 03/01/23 quetiapine 100 mg tablet 100 mg PO BEDTIME #90 tabs 11/06/23 zolpidem 10 mg tablet 10 mg PO BEDTIME PRN insomnia #30 03/24/23 tabs metoprolol tartrate 25 mg tablet 25 mg PO BID 30 days #60 tabs 04/14/23 isosorbide mononitrate 30 mg 30 mg PO DAILY 90 days #90 tabs 05/17/23 tablet,extended release 24 hr alprazolam 1 mg tablet 1 mg PO BID PRN anxiety 30 days 07/19/23 #60 tabs lisinopril 20 mg tablet 20 mg PO DAILY #100 tabs 07/28/23 rosuvastatin 40 mg tablet 40 mg PO DAILY #100 tabs 07/28/23 Allergies Allergy/AdvReac Type Severity Reaction Status Date / Time zolpidem AdvReac Unknown sleepwalkin Verified 07/05/23 04:09 g Review of Systems 2 Constitutional: Constitutional: Reports no additional constitutional complaints, Denies chills, Denies fever(s) and Denies night sweats Eyes: Eyes: Reports no additional eye complaints, Denies blurry vision, Denies change in vision, Denies diplopia, Denies eye discharge, Denies loss of vision and Denies eye pain ENT: Denies dizziness Cardiovascular: Cardiovascular: Reports no additional cardiovascular complaints, Denies chest pain, Denies lightheadedness, Denies Loss of Consciousness and Denies dyspnea Respiratory: Respiratory: Reports no additional respiratory complaints and Denies dyspnea Gastrointestinal: Gastrointestinal: Reports no additional gastrointestinal complaints, Denies abdominal pain, Denies melena, Denies hematochezia, Reports change in bowel habits, Reports change in stool character and Reports diarrhea Genitourinary: Genitourinary: Reports no additional male genitourinary complaints, Denies hematuria, Denies oliguria, Denies difficulty urinating, Denies dysuria, Denies urinary frequency, Denies urinary hesitancy, Denies urinary incontinence and Denies urinary urgency Musculoskeletal: Musculoskeletal: Reports no additional musculoskeletal complaints, Denies numbness and Denies tingling Neurologic: Denies dizziness, Denies loss of vision, Denies numbness and Denies tingling Psychiatric: Psychiatric: Reports no additional psychiatric complaints Endocrine: Endocrine: Reports no additional endocrine complaints Hematologic/Lymphatic: Hematologic/Lymphatic: Reports no additional hematologic/lymphatic complaints Allergic/Immunologic: Allergic/Immunologic: Reports no additional allergic/immunologic complaints PMFSH Past Medical History Attestation statement: The following information was validated with the patient. 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 Degenerative disc disease, cervical Impaired fasting glucose Pure hypercholesterolemia Bilateral carotid artery stenosis Benign essential hypertension Surgical History Hx of colonoscopy History of common carotid artery stent placement H/O radical prostatectomy History of inguinal hernia repair Family History Family History Father Cancer Mother Chronic mental illness Son In good health Daughter In good health Social History Social History Household Members: Children and Other Housing: House Do you presently have visiting nurse or other home services: No Alcohol intake: never Patient Tobacco Use Status: Former Tobacco user Quit Date: quit 7 yrs ago Tobacco use type: Cigarette Smoked in Last 30 Days: No e-Cigarette/Vaping Use: Never Used Second Hand Smoke Exposure: No Substance Use Type: Marijuana Advance Directives: Yes Advance Directives on File: Yes Advance Directives Date on File: 12/08/22 service: No Current occupational status: retired Cognitive needs: No Hearing needs: No Vision needs: Yes Physical Exam ED Vital Signs: Vital Signs - 24 hr 07/28/23 04:34 07/28/23 06:13 07/28/23 08:52 Temperature 97.6 F Pulse Rate 90 88 84 Respiratory Rate 17 17 16 Blood Pressure 108/60 110/51 L 107/61 Pulse Oximetry 99 99 98 Oxygen Delivery Method Room Air Room Air Room Air 07/28/23 10:00 Temperature Pulse Rate 81 Respiratory Rate 14 Blood Pressure 137/64 Pulse Oximetry 98 Oxygen Delivery Method Room Air BMI result Body Mass Index 18.0 Const General: cooperative, no acute distress, alert and awake Nutritional Appearance: well nourished Orientation/consciousness: patient oriented x3 Limitations: no limitations HENMT Head: Yes normal to inspection and Yes atraumatic Ears: hearing grossly normal bilaterally and external ears normal General nose exam: Normal external nose present, no nasal discharge noted and no epistaxis Face and sinus: Yes normal facial exam, No abrasion and No laceration Mouth: Normal oral and palatal mucosa present, no drooling and no muffled voice Eyes General: appearance normal, both eyes and all related structures Periorbital: periorbital findings normal Eyelids: Yes eyelids normal Conjunctivae: conjunctivae normal Pupils: Equal, round and reactive pupils present EOM: EOMs intact bilaterally Neck Neck: Yes normal visual inspection, Yes full ROM and Yes no lymphadenopathy Chest Chest palpation & inspection: normal inspection of the chest Resp Effort & Inspection: normal respiratory effort and able to speak in complete sentences GI Inspection: Yes normal to inspection Palpation (GI): Soft to palpation, not firm, nontender and no guarding Neuro General: patient oriented x3 and moves all extremities Cranial nerves: Yes Equal, round and reactive pupils present Cognition (Neuro): normal cognition Motor exam (neuro): 5/5 motor strength present throughout Sensory Exam: Normal double simultaneous stimulation for sensation Coordination: [id number] test normal Extrem General: Yes normal to inspection, Yes full ROM and Yes capillary refill normal Psych Appearance: grossly normal Mental Status: mental status grossly normal Affect: normal affect Attitude: cooperative Thought process: Normal thought process present Thought content: Normal thought content present Insight: Good insight present (Psych) Medications Administered Discontinued Medications Generic Name Dose Route Start Last Admin Trade Name Freq PRN Reason Stop Dose Admin Sodium Chloride 1,000 mls @ 999 mls/hr 07/28/23 07:15 07/28/23 11:30 Ns IV 07/28/23 08:15 Infused .Q1H1M HERMINIO Infusion Medical Decision Making Medical Decision Making [facility] Narrative: Patient is a 73 year old assigned male at with a history of CAD, epilepsy, chronic proctitis, depression, and anxiety presenting to the emergency department today with bowel incontinence. Patient's physical exam was unremarkable. Patient's blood work showed an elevated WBC count of 11.7, potassium of 5.3, BUN of 20, and CR of 2.90. Rest of the patient's labs unremarkable. Patient's urine showed no acute process. Patient's EKG was unremarkable. Patient's abdomen/pelvis CT showed no acute process. Patient's clinical presentation is most consistent with MARKUS secondary to persistent diarrhea. Patient's clinical presentation is not consistent with sepsis (@0800). I spoke to the hospitalist team who agreed to admission. I explained my physical exam findings as well as all test results to the patient. I answered all questions asked by the patient. Patient verbalized agreement and understanding with this treatment plan and admission. Differential Diagnosis Differential Diagnoses: The differential diagnosis associated with the presentation includes MARKUS Persistent diarrhea Bowel incontinence Admission/Observation Consideration of admission/observation: Escalation of care including admission/observation considered Patient admitted Consult Healthcare Provider Management of the patient was discussed with: Hospitalist (agreed to admission as noted in the MDM Rationale portion of this note.) Lab Data [facility] Lab Attestation statement: I reviewed the patient's lab results. My interpretation of these results are in the MDM Rationale portion of this note. 07/28/23 04:45 07/28/23 04:45 Labs: Lab Results 07/28/23 07/28/23 07/28/23 Range/Units 04:45 08:26 10:57 WBC 11.7 H (4.8-10.8) X10*3/uL RBC 3.43 L (4.60-5.80) X10*6/uL Hgb 10.2 L (14.0-18.0) g/dl Hct 31.9 L (42.0-52.0) % MCV 93.0 (80.0-98.0) fL MCH 29.7 (27.0-33.0) pg MCHC 32.0 (31.0-36.0) g/dl RDW 17.5 H (11.0-16.0) % Plt Count 256 (160-400) X10*3/uL MPV 9.6 (9.4-12.4) fL Immature Gran % (Auto) 0.4 (0.0-0.4) % Neut % (Auto) 80.2 H (45-73) % Lymph % (Auto) 7.5 L (20-40) % [place] % (Auto) 9.3 (2-11) % Eos % (Auto) 2.3 (0-4) % Baso % (Auto) 0.3 (0-2) % Lymph # (Auto) 0.9 L (1.2-4.9) X10*3/uL [place] # (Auto) 1.1 (0.1-1.2) X10*3/uL Eos # (Auto) 0.3 (0.0-0.4) X10*3/uL Baso # (Auto) 0.0 (0.0-0.2) X10*3/uL Abs Immat Gran (auto) 0.05 H (0.00-0.03) X10*3/uL Absolute Neuts (auto) 9.4 H (2.0-8.3) x10*3/uL Absolute Nucleated RBC 0.000 (0.0-0.012) X10*3/uL Nucleated RBC % (auto) 0.0 (0.0-0.2) /100WBC Sodium 137 (135-145) mmol/L Potassium 5.3 H (3.3-5.1) mmol/L Chloride 112 H (96-108) mmol/L Carbon Dioxide 16 L (22-29) mmol/L Anion Gap 14 (12-20) BUN 50 H (9-16) mg/dL Creatinine 2.90 H (0.5-1.4) mg/dL Estim Creat Clear Calc 18.0 Estimated GFR 21 Random Glucose 146 H (60-115) mg/dL Calcium 9.4 (8.4-10.2) mg/dL Magnesium 1.9 (1.6-2.6) mg/dL Total Bilirubin 0.4 (0.0-1.0) mg/dL AST 23 (5-37) U/L ALT 14 (0-40) U/L Alkaline Phosphatase 127 H (39-117) U/L Total Protein 7.3 (6.5-8.0) g/dL Albumin 3.6 (3.5-5.0) g/dL Lipase 29 (8-78) U/L Urine Color Yellow Urine Appearance Cloudy Urine pH 5.5 (5.0-9.0) Ur Specific [place] 1.020 (1.005-1.025) Urine Protein 100 (2+) H (Neg-Trace) mg/dL Urine Glucose (UA) Negative (Negative) mg/dL Urine Ketones Negative (Negative) mg/dL Urine Blood Negative (Negative) Urine Nitrite Negative (Negative) Ur Leukocyte Esterase Negative (Negative) Urine RBC 0-2 (0-2) /HPF Urine WBC 0-5 (0-5) /HPF Ur Squamous Epith Cells 3-5 (0-2) /HPF Urine Bacteria None Seen (None Seen) Hyaline Casts 3-5 (0-2) /LPF Granular Casts Present Ur Random Sodium 81.0 mmol/L Urine Creatinine 139.95 mg/dL Stl C. cayetanensis PCR Not Detected (Not Detect.) Stool Rotavirus A PCR Not Detected (Not Detect.) Stl Adenov F 40/41 PCR Not Detected (Not Detect.) Stool Astrovirus (PCR) Not Detected (Not Detect.) Stool Campylobacter PCR Not Detected (Not Detect.) Stool Cryptosporidium PCR Not Detected (Not Detect.) Stl Sh Tox Pr E STEC PCR Not Detected (Not Detect.) Stool E coli O157 PCR Not applicable (Not Detect.) Stl Enterotoxigenic E PCR Not Detected (Not Detect.) Stool EPEC (PCR) Not Detected (Not Detect.) Stool EAEC (PCR) Not Detected (Not Detect.) Stl E. histolytica PCR Not Detected (Not Detect.) Stool Giardia Lamblia PCR Not Detected (Not Detect.) Stl P. shigelloides PCR Not Detected (Not Detect.) Stool Salmonella PCR Not Detected (Not Detect.) Stool Sapovirus (PCR) Not Detected (Not Detect.) Stl Shigella/EIEC PCR Not Detected (Not Detect.) St Y.enterocolitica PCR Not Detected (Not Detect.) Stool Vibrio (PCR) Not Detected (Not Detect.) Stl Vibrio cholerae PCR Not Detected (Not Detect.) Stl Norovirus GI/GII PCR Not Detected (Not Detect.) Influenza Type A (PCR) NEGATIVE (Negative) Influenza Type B (PCR) NEGATIVE (Negative) RSV RNA Qual (PCR) NEGATIVE (Negative) SARS-CoV-2 RNA (RT-PCR) NEGATIVE (Negative) Independent Interpretation I performed an independent interpretation of an: EKG and CT Scan Interpretation: My interpretation is in agreement with the radiologist's impression of this imaging study. - EXAMINATION: CT ABDOMEN AND PELVIS WITHOUT CONTRAST CLINICAL INFORMATION: Pain, injury. COMPARISON: CT abdomen and pelvis from 01/27/2023 TECHNIQUE: Multidetector volumetric imaging was performed from the superior aspect of the liver through the pubic symphysis. Sagittal and coronal reformatted images were obtained on the technologist's workstation. This CT examination was performed using dose optimization techniques as appropriate, variously including the following: *Automated exposure control *Adjustment of mA and/or kV according to patient size (this includes techniques or standardized protocols for targeted exams where dose is matched to indication/reason for exam; i.e. extremities or head) *Use of iterative reconstruction technique DLP: 378 mGy-cm FINDINGS: LUNG BASES: Moderate centrilobular emphysema within the visualized lung bases. Multiple small clustered noncalcified nodular foci in the left lower lobe are consistent with sequela of inflammation or infection of the small airways. Based on Fleischner Society guidelines, no chest CT imaging follow-up is recommended. No focal consolidation or pleural effusion. HEPATOBILIARY: Liver has normal size, shape, and attenuation. Gallbladder has a normal appearance. No dilated bile ducts. PANCREAS: No edema, pancreatic ductal dilatation or mass. There is old coarse calcification in the posterior inferior aspect of the pancreatic head. SPLEEN: Normal. ADRENAL GLANDS: Normal. KIDNEYS AND URETERS: Kidneys are normal in size. No hydronephrosis. 0.3 cm calyceal stone is present in the left lower pole. Chronic bilateral perinephric edema is present without evidence of focal organized perinephric collection. The ureters are unremarkable. BLADDER: There appears to be mild thickening of the wall of the bladder inferiorly and mild edema is present within the perivesical fat. This is presumably reactive to the perirectal inflammation. BOWEL AND PERITONEUM: No dilated loops of bowel. The appendix is normal. Diverticula of the sigmoid colon without evidence of diverticulitis. The wall of the rectum is mildly thickened and edema is present within the mesorectal compartment. Multiple lymph nodes are seen within the mesorectal compartment, largest 0.6 cm short axis dimension. ABDOMINAL WALL: A very small fat-containing hernia seen in the periumbilical region. VASCULATURE: There is atherosclerotic calcification of the abdominal aorta and iliac arteries. The infrarenal abdominal aorta measures up to 2.3 cm AP diameter. LYMPH NODES: No retroperitoneal lymphadenopathy. There is chronic lymphadenopathy adjacent to inferior mesenteric/superior rectal vessels. The largest lymph node in the presacral region is 0.9 cm short axis dimension. PELVIC VISCERA: Prostate gland is not definitively seen. MUSCULOSKELETAL: [id number] discovertebral degenerative change at L2-L3. Otherwise, mild spondylosis of the visualized spine. No acute or suspicious osseous abnormality. Pelvic bones and proximal femurs are intact. CT/CT abdomen pelvis wo IV con IMPRESSION: * In this patient with history of injury, there is no evidence of traumatic pathology involving the solid or hollow viscera on this noncontrast examination. No hemoperitoneum or pneumoperitoneum. * The imaging findings are consistent with proctitis with presence of reactive lymphadenopathy. Similar abnormalities were seen on 01/27/2023. No perirectal abscess. * Diverticula of the sigmoid colon without diverticulitis. * Moderate centrilobular emphysema in the visualized lung bases, and small clustered nodules in the posterior left lower lobe are consistent with sequela of bronchiolitis. Dictated By: Otto Sevilla MD Signed By: Electronically signed by Otto Sevilla MD 07/28/23 0740 - Vent. Rate: 084 BPM Atrial Rate: 084 BPM P-R Int: 186 ms QRS Dur: 078 ms QT Int: 366 ms P-R-T Axes: 085 034 075 degrees QTc Int: 432 ms Normal sinus rhythm Normal ECG When compared with ECG of 27-JAN-2023 17:30, No significant change was found Electronically Signed By:DIMITRIOS ROYAL MD Dictated By: Dimitrios Royal MD Signed By: Electronically signed by Dimitrios Royal MD 07/28/23 1014 Radiology Impression Discussion of test interpretation with radiology: I have reviewed the radiologist's reading. Independent Historian Clinical information obtained from an independent historian. History obtained from or confirmed by: EMS (EMS provided additional history and confirmed the history provided by the patient.) Critical Care Time Critical Care Time Critical Care Time: Yes Total Critical Care Time: 127 Attestation: I spent 127 minutes of Critical Care Time with this patient. This does not include time spent on separately reported billable procedures. Discharge Plan Discharge Clinical Impression: MARKUS (acute kidney injury) Patient Disposition: Admitted As Inpatient
[2023-07-28 07:46] LABS: Magnesium 1.9 mg/dL (1.6-2.6)
--- NOTE | 2023-07-28 07:49 | ECG_ITS ---
Test Reason : hyperkalemia Blood Pressure : / mmHG Vent. Rate : 084 BPM Atrial Rate : 084 BPM P-R Int : 186 ms QRS Dur : 078 ms QT Int : 366 ms P-R-T Axes : 085 034 075 degrees QTc Int : 432 ms Normal sinus rhythm Normal ECG When compared with ECG of 27-JAN-2023 17:30, No significant change was found Referred By: Luna Srinivasan Electronically Signed By:MAYE MONTEMAYOR MD
[2023-07-28 08:37] LABS: Appearance Urine Cloudy; Color Urine Yellow; Glucose Urine UA Negative (Negative); Leukocyte Esterase Urine Negative (Negative); Nitrite Urine Negative (Negative); PH 5.5 (5.0-9.0); UMIC TRIGGER UACC YES; Urine Blood Negative (Negative); Urine Ketones Negative (Negative); Urine Protein 100 (2+) mg/dL (Neg-Trace)
[2023-07-28 09:07] LABS: Bacteria Urine None Seen (None Seen); Granular Casts Urine Present; RBC Urine 0-2 /HPF (0-2); WBC Urine 0-5 /HPF (0-5)
[2023-07-28 09:12] LABS: Influenza A PCR NEGATIVE (Negative); Influenza B PCR NEGATIVE (Negative); Resp Syncy Virus RNA Qual PCR NEGATIVE (Negative); SARS COV2 PCR INHOUSE NEGATIVE (Negative)
[2023-07-28] MEDS: 0.9 % Sodium Chloride 1,000 ML 999 ML IV (09:55)
--- NOTE | 2023-07-28 11:25 | PM.IMHP ---
History of Present Illness Date of Service: 07/28/23 Attending physician on admission: Josef Esquivel Chief Complaint: Diarrhea, incontinence Pt is a 73-year-old male with a PMH significant for?prostate cancer s/p prostatectomy and radiation therapy complicated by radiation proctitis, CAD s/p PCI in 2014, carotid artery stenosis s/p bilateral carotid stenting, hx of cerebral hemorrhage, epilepsy, HLD, HTN, restless leg syndrome, and anxiety who presents to the ED for evaluation of bowel and bladder incontinence x2 months. Pt reports has been having painless, non-bloody liquid diarrhea since April, usually 10-15 episodes per day. Occasional lower abdominal cramping extending to groin. Incontinent of urine and stool began a few weeks after diarrhea started. States he currently often wakes up covered in his stool. Reports has been eating and drinking regularly. Has taken a number of OTC medications for diarrhea to no effect, including Imodium and Pepto-Bismol. Denies fever, chills, nausea, vomiting. Denies acute abdominal pain. No chest pain/pressure, palpitations. Chronic shortness of breath and cough at baseline. No headache, acute vision changes. Of note, pt previously presented to the ED in 12/2022 with hematochezia likely secondary to radiation proctitis. Colonoscopy at that time was deferred due to anesthesia concerns for cardiac risk. [place] [facility] cardiac [place]atheter[place] and was deemed when likely need three-vessel CABG. Patient has begun preliminary workup but has not undergone surgery due to his chronic diarrhea. In the ED pt was vitals largely WNL. Labs were significant for leukocytosis of 11.7, potassium 5.3, BUN 50, creatinine 2.90 (up from 1.13 on 01/27/2023), and alk-phos 127. Stable normocytic anemia of 10.231.9. UA negative for UTI. Stool panel and C diff pending. CT?of abdomen and pelvis negative for acute findings or traumatic pathology. Redemonstrated likely proctitis with reactive lymphadenopathy similar to previous on 01/27/2023. EKG demonstrated normal sinus rhythm without evidence of significant ST elevations or depressions. Pt was treated with 1 L IVF. Pt will be admitted to the hospital for treatment and further evaluation of MARKUS in the setting of intractable diarrhea. Review of Systems Review of Systems: Painless, nonbloody diarrhea Incontinence of stool and urine Occasional lower abdominal cramping Chronic shortness of breath and cough at baseline Denies fever, chills, nausea, vomiting Denies chest pain/pressure, palpitations Denies headache, acute vision changes [facility] Medical History Preop cardiovascular exam Abnormal stress test Unstable angina Chest pain Elevated troponin I level Multiple falls Annual physical exam Annual physical exam Positive colorectal cancer screening using Cologuard test Anal discharge Depression Anxiety Prostate cancer Restless legs syndrome Epilepsy 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 Degenerative disc disease, cervical Impaired fasting glucose Pure hypercholesterolemia Bilateral carotid artery stenosis Benign essential hypertension Family History Father Cancer Mother Chronic mental illness Son In good health Daughter In good health Surgical History Hx of colonoscopy History of common carotid artery stent placement H/O radical prostatectomy History of inguinal hernia repair Social History Household Members: Family Housing: House Do you presently have visiting nurse or other home services: No Alcohol intake: never Patient Tobacco Use Status: Former Tobacco user Quit Date: quit 7 yrs ago Tobacco use type: Cigarette e-Cigarette/Vaping Use: Never Used Second Hand Smoke Exposure: No Substance Use Type: Marijuana Advance Directives Date on File: 12/08/22 service: No Current occupational status: retired Cognitive needs: No Hearing needs: No Vision needs: Yes Meds Allergies Allergy/AdvReac Type Severity Reaction Status Date / Time zolpidem AdvReac Unknown sleepwalkin Verified 07/05/23 04:09 g Home Medications ?Medication ?Instructions ?Recorded ?Confirmed ?Last Taken ?Type cholecalciferol (vitamin D3) 25 25 mcg PO DAILY 12/01/22 07/28/23 07/27/23 History mcg (1,000 unit) tablet cyanocobalamin (vitamin B-12) 1,000 mcg PO DAILY 12/01/22 07/28/23 07/27/23 History 1,000 mcg tablet [id number] 300 mcg-K 60 1 tab PO DAILY 12/01/22 07/28/23 07/27/23 History mcg-lycop 600 mcg-lutein 300 mcg tablet (Centrum Silver Men) aspirin 81 mg tablet,delayed 81 mg PO DAILY 02/19/23 07/28/23 07/27/23 History release (Adult Low Dose Aspirin) paroxetine HCl 30 mg tablet 60 mg PO BEDTIME 07/28/23 07/28/23 07/27/23 History Physical Exam Vital Signs and Narrative: Vital Signs: Last Vital Signs Temp 97.6 F 07/28/23 04:34 Pulse 81 07/28/23 10:00 Resp 14 07/28/23 10:00 BP 137/64 07/28/23 10:00 Pulse Ox 98 07/28/23 10:00 O2 Del Method Room Air 07/28/23 10:00 BMI result Body Mass Index 18.0 Results Labs 07/29/23 06:45 07/29/23 06:45 Labs: Laboratory Results - last 24 hr 07/28/23 07/28/23 04:45 08:26 MCV 93.0 MCH 29.7 MCHC 32.0 RDW 17.5 H Plt Count 256 MPV 9.6 Immature Gran % (Auto) 0.4 Neut % (Auto) 80.2 H Lymph % (Auto) 7.5 L [place] % (Auto) 9.3 Eos % (Auto) 2.3 Baso % (Auto) 0.3 Lymph # (Auto) 0.9 L [place] # (Auto) 1.1 Eos # (Auto) 0.3 Baso # (Auto) 0.0 Abs Immat Gran (auto) 0.05 H Absolute Neuts (auto) 9.4 H Absolute Nucleated RBC 0.000 Nucleated RBC % (auto) 0.0 Anion Gap 14 Estim Creat Clear Calc 18.0 Estimated GFR 21 Random Glucose 146 H Calcium 9.4 Magnesium 1.9 Total Bilirubin 0.4 AST 23 ALT 14 Alkaline Phosphatase 127 H Total Protein 7.3 Albumin 3.6 Lipase 29 Urine Color Yellow Urine Appearance Cloudy Urine pH 5.5 Ur Specific [place] 1.020 Urine Protein 100 (2+) H Urine Glucose (UA) Negative Urine Ketones Negative Urine Blood Negative Urine Nitrite Negative Ur Leukocyte Esterase Negative Urine RBC 0-2 Urine WBC 0-5 Ur Squamous Epith Cells 3-5 Urine Bacteria None Seen Hyaline Casts 3-5 Granular Casts Present Influenza Type A (PCR) NEGATIVE Influenza Type B (PCR) NEGATIVE RSV RNA Qual (PCR) NEGATIVE SARS-CoV-2 RNA (RT-PCR) NEGATIVE Imaging Radiologist's Impressions: Impressions Abdomen/Pelvis CT 07/28/23 06:53 IMPRESSION: * In this patient with history of injury, there is no evidence of traumatic pathology involving the solid or hollow viscera on this noncontrast examination. No hemoperitoneum or pneumoperitoneum. * The imaging findings are consistent with proctitis with presence of reactive lymphadenopathy. Similar abnormalities were seen on 01/27/2023. No perirectal abscess. * Diverticula of the sigmoid colon without diverticulitis. * Moderate centrilobular emphysema in the visualized lung bases, and small clustered nodules in the posterior left lower lobe are consistent with sequela of bronchiolitis. Assessment and Plan (1) MARKUS (acute kidney injury): Status: Resolved Plan Pt is a 73-year-old male with a PMH significant for?prostate cancer s/p prostatectomy and radiation therapy complicated by radiation proctitis, CAD s/p PCI in 2014, carotid artery stenosis s/p bilateral carotid stenting, hx of cerebral hemorrhage, epilepsy, HLD, HTN, restless leg syndrome, and anxiety who presents to the ED for evaluation of bowel and bladder incontinence x2 months. MARKUS In the setting of intractable diarrhea times 2-3 months Creatinine 2.90 at time of presentation, up from 1.13 on 01/27/2023 Patient received 1L IVF in ED Will be placed on maintenance fluids Will check urine creatinine and sodium Follow BMP Intractable diarrhea Has been experiencing painless, nonbloody diarrhea x2-3 months, 10-12 episodes per day Patient also has been incontinent of urine and stool x2 months CT of abdomen and pelvis without acute findings Will check GI panel, C diff Will treat with Lomotil and as above with IVF Stop Lomotil if GI panel or C diff positive GI consult Leukocytosis WBCs mildly elevated at 11.7 Likely secondary to hemoconcentration, not related to sepsis No indication of bacterial infection, no indication for antibiotics at this time Hyperkalemia Potassium mildly elevated at 5.3 Will give Lokelma 10 g x 1 dose Follow BMP CAD Continue aspirin, Plavix, statin HTN Continue lisinopril, metoprolol, isosorbide mononitrate Mood disorder Continue home meds Full Code Attending:?Dr. Esquivel DVT Prophylaxis: Heparin Pt will require a hospitalization of at least two nights for treatment of?MARKUS secondary to intractable diarrhea. Patient required hospitalization due to significant MARKUS, need for IV fluid replacement, close monitoring of labs, and specialist consultation with GI. Quality Stroke Does the patient have a stroke diagnosis?: No VTE Prior VTE?: No VTE Risk Level:: Medical - moderate - high VTE Device Contraindication: Treatment Not Indicated VTE Drug Contraindication: N/A - Med Ordered
--- NOTE | 2023-07-28 11:32 | PHA.MEDREC ---
Pharmacy Consult ? Medication Reconciliation Pharmacy has completed the medication reconciliation with the patient, pt was able to confirm most medications although didn't know why or names. Utilized claims hx and med rec completed at office visit Jan 2023, that matched claims and pt reported medications.
--- NOTE | 2023-07-28 13:42 | P.CNGI_ITS ---
History of Present Illness Data of Consult Service Date: 07/28/23 Requesting physician: Jeremy Coronel Primary Care Provider: Jayy Foster MD HPI Reason for consult: rectal bleeding 73 y.o M with PMH of carotid artery disease, prostate ca s/p XRT and radical prostatectomy, hyperlipidemia, and CAD s/p PCI in 2014 who I am seeing for assessment for diarrhea Patient came to ED due to combined urine and stool incontinence, and can wake up covered in stool. This has been a problem since Mid apr 2023, and only partially controlled with imodium. He also tried pepto and it did not help. He needs CABG at some point and does admit to exertional central chest pain and SOB. Denies fever, chills, nausea, vomiting. Denies acute abdominal pain. He had a colonoscopy 2021 with severe diverticulosis, radiation proctitis and colon polyp. CT this admission with proctitis and reactive LN Review of Systems 2 Review of Systems: Constitutional : No Weight loss, No Fever, No Chills ENT/Mouth : No sore throat, No Rhinorrhea Eyes: No Swelling, No Redness Cardiovascular : + Chest Pain, + SOB, No Edema Respiratory : No Cough, No Sputum, No Wheezing Gastrointestinal : see HPI Genitourinary : NO Dysuria, No Urinary Frequency, No Hematuria, No Urgency Musculoskeletal : + joint pain, No Myalgias, No Joint Swelling Skin : No Skin Lesions, No rash Neuro : No Weakness, No Numbness, No Dizziness, No Headache Psych : No Anxiety/Panic, No Depression Heme/Lymph: No Bruising, No Lymphadenopathy Endocrine : No Polyuria, No Polydipsia All other systems reviewed and are negative. [facility] Past Medical History Medical History Preop cardiovascular exam Abnormal stress test Unstable angina Chest pain Elevated troponin I level Multiple falls Annual physical exam Annual physical exam Positive colorectal cancer screening using Cologuard test Anal discharge Depression Anxiety Prostate cancer Restless legs syndrome Epilepsy 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 Degenerative disc disease, cervical Impaired fasting glucose Pure hypercholesterolemia Bilateral carotid artery stenosis Benign essential hypertension Family History Family History Father Cancer Mother Chronic mental illness Son In good health Daughter In good health Surgical History Surgical History Hx of colonoscopy History of common carotid artery stent placement H/O radical prostatectomy History of inguinal hernia repair Social History Social History Household Members: Children and Other Housing: House Do you presently have visiting nurse or other home services: No Alcohol intake: never Patient Tobacco Use Status: Former Tobacco user Quit Date: quit 7 yrs ago Tobacco use type: Cigarette Smoked in Last 30 Days: No e-Cigarette/Vaping Use: Never Used Second Hand Smoke Exposure: No Substance Use Type: Marijuana Advance Directives: Yes Advance Directives on File: Yes Advance Directives Date on File: 12/08/22 service: No Current occupational status: retired Cognitive needs: No Hearing needs: No Vision needs: Yes Meds Allergies Allergy/AdvReac Type Severity Reaction Status Date / Time zolpidem AdvReac Unknown sleepwalkin Verified 07/05/23 04:09 g Active Medications: Current Medications Acetaminophen (Acetaminophen 325 Mg Tablet) 650 mg PO Q6H PRN PRN Reason: Pain, Mild (Pain Scale 1-3) Alprazolam (Alprazolam 0.5 Mg Tablet) 1 mg PO BID PRN PRN Reason: anxiety Aspirin (Aspirin Enteric Coated 81 Mg Tablet.Dr) 81 mg PO DAILY [facility] Atorvastatin Calcium (Atorvastatin Calcium 80 Mg Tablet) 80 mg PO BEDTIME [facility] Benzonatate (Benzonatate 100 Mg Capsule) 100 mg PO TID PRN PRN Reason: Cough Clopidogrel Bisulfate (Clopidogrel Bisulfate 75 Mg Tablet) 75 mg PO DAILY [facility] Cyanocobalamin (Cyanocobalamin (Vitamin B-12) 1,000 Mcg Tablet) 1,000 mcg PO DAILY [facility] Diphenoxylate HCl/Atropine (Diphenoxylate/Atrop 2.5/0.025 Tablet) 1 tab PO BID PRN PRN Reason: Diarrhea Heparin Sodium (Porcine) (Heparin Sodium,Porcine 5,000 Unit/Ml Vial) 5,000 unit SUBCUT Q8H [facility] Sodium Chloride (Ns) 1,000 mls @ 100 mls/hr IVCONT .Q10H [facility] Isosorbide Mononitrate (Isosorbide Mononitrate 30 Mg Tab.Er.24h) 30 mg PO DAILY [facility]; Protocol Lisinopril (Lisinopril 20 Mg Tablet) 20 mg PO DAILY [facility]; Protocol Metoprolol Tartrate (Metoprolol Tartrate 25 Mg Tablet) 25 mg PO BID [facility]; Protocol Mirtazapine (Mirtazapine 30 Mg Tablet) 30 mg PO BEDTIME [facility] Multivitamins/Vitamin C (Multivitamin Tablet) 1 tab PO DAILY [facility] Ondansetron HCl (Ondansetron Hcl 4 Mg/2 Ml Vial) 4 mg IVPUSH Q8H PRN PRN Reason: Nausea and Vomiting Paroxetine HCl (Paroxetine Hcl 30 Mg Tablet) 60 mg PO BEDTIME [facility] Quetiapine Fumarate (Quetiapine Fumarate 100 Mg Tablet) 100 mg PO BEDTIME [facility] Ropinirole HCl (Ropinirole Hcl 1 Mg Tablet) 3 mg PO BEDTIME [facility] Sodium Chloride (0.9 % Sodium Chloride Flush 3 Ml Syringe) 3 ml IVFLUSH QSHIFT [facility] Vitamin D (Cholecalciferol (Vitamin D3) 25 Mcg Tablet) 25 mcg PO DAILY [facility] Zolpidem Tartrate (Zolpidem Tartrate 5 Mg Tablet) 10 mg PO BEDTIME PRN PRN Reason: insomnia Home Medications Medication Instructions Recorded Confirmed Last Taken Type cholecalciferol (vitamin D3) 25 25 mcg PO DAILY 12/01/22 07/28/23 07/27/23 History mcg (1,000 unit) tablet cyanocobalamin (vitamin B-12) 1,000 mcg PO DAILY 12/01/22 07/28/23 07/27/23 History 1,000 mcg tablet [id number] 300 mcg-K 60 1 tab PO DAILY 12/01/22 07/28/23 07/27/23 History mcg-lycop 600 mcg-lutein 300 mcg tablet (Centrum Silver Men) aspirin 81 mg tablet,delayed 81 mg PO DAILY 02/19/23 07/28/23 07/27/23 History release (Adult Low Dose Aspirin) paroxetine HCl 30 mg tablet 60 mg PO BEDTIME 07/28/23 07/28/23 07/27/23 History Physical Exam 2 Vital Signs: Vital Signs: Last Vital Signs Temp 97.6 F 07/28/23 04:34 Pulse 81 07/28/23 10:00 Resp 14 07/28/23 10:00 BP 137/64 07/28/23 10:00 Pulse Ox 98 07/28/23 10:00 O2 Del Method Room Air 07/28/23 10:00 BMI result Body Mass Index 18.0 EXAM: GENERAL: The patient is thin VITAL SIGNS:see workflow HEENT: Nonicteric sclerae, PERRLA, EOMI. Oropharynx clear. Moist mucous membranes. Conjunctivae appear well perfused. No thyroid mass. CHEST: Chest wall is nontender. HEART: Regular rate and rhythm without murmurs. LUNGS: Clear to auscultation bilaterally. ABDOMEN: Soft, positive bowel sounds, nontender, no organomegaly.no flank tenderness SKIN: No rash, no excessive bruising, petechiae, or purpura. NEUROLOGIC: Cranial nerves II-XII intact without motor/sensory deficit. Psych: normal affect Results Labs 07/28/23 04:45 07/28/23 04:45 Labs: Short CBC 07/28/23 Range/Units 04:45 WBC 11.7 H (4.8-10.8) X10*3/uL Hgb 10.2 L (14.0-18.0) g/dl Hct 31.9 L (42.0-52.0) % Plt Count 256 (160-400) X10*3/uL BMP 07/28/23 04:45 Sodium 137 Potassium 5.3 H Chloride 112 H Carbon Dioxide 16 L BUN 50 H Creatinine 2.90 H Calcium 9.4 Liver Function 07/28/23 Range/Units 04:45 Total Bilirubin 0.4 (0.0-1.0) mg/dL AST 23 (5-37) U/L ALT 14 (0-40) U/L Alkaline Phosphatase 127 H (39-117) U/L Albumin 3.6 (3.5-5.0) g/dL Urine 07/28/23 Range/Units 08:26 Urine Color Yellow Urine Appearance Cloudy Urine pH 5.5 (5.0-9.0) Ur Specific [place] 1.020 (1.005-1.025) Urine Protein 100 (2+) H (Neg-Trace) mg/dL Urine Glucose (UA) Negative (Negative) mg/dL Imaging CT scan - abdomen: Attestation: I personally reviewed and interpreted this imaging study as follows: (rectal thickening ) Assessment and Plan (1) Radiation proctitis: Status: Acute Plan 1/ Diarrhea, many possibl causes incl infection, malabsorption, colonic lesion, RAVE, medication SE, IBD PLAN: 1/ He is unable to take supps or enemas, we can empirically try mesalamine PO TID and see if any response, other yu can also try choletyramine 2/ agree with checking c diff and stool panel 3/check with cadiology about timing for colonoscopy Procedures Date of Service Date of Service: 07/28/23
[2023-07-28 13:51] LABS: Creatinine Urine 139.95 mg/dL
[2023-07-28 14:19] LABS: Adenovirus F 40/41 Not Detected (Not Detect.); Astrovirus Not Detected (Not Detect.); Campylobacter Not Detected (Not Detect.); Cryptosporidium Not Detected (Not Detect.); Cyclospora cayetanensis Not Detected (Not Detect.); E. coli EAEC Not Detected (Not Detect.); E. coli EPEC Not Detected (Not Detect.); E. coli ETEC Not Detected (Not Detect.); E. coli STEC Not Detected (Not Detect.); Entamoeba histolytica Not Detected (Not Detect.); Giardia lamblia Not Detected (Not Detect.); Norovirus GI/GII Not Detected (Not Detect.); Plesiomonas shigelloides Not Detected (Not Detect.); Rotavirus A Not Detected (Not Detect.); Salmonella Not Detected (Not Detect.); Sapovirus Not Detected (Not Detect.); Shigella sp./EIEC Not Detected (Not Detect.); Vibrio Not Detected (Not Detect.); Vibrio Cholerae Not Detected (Not Detect.); Yersinia enterocolitica Not Detected (Not Detect.)
--- NOTE | 2023-07-28 14:58 | PC.NURSE ---
fariba care for incont of stool. repositioned. no distress. calm, coop. PIV c/d/i/flushing well
[2023-07-28] MEDS: 0.9 % Sodium Chloride 1,000 ML 100 ML IVCONT (15:53)
[2023-07-28] MEDS: Sodium Zirconium Cyclosilicate 10 GM POWD.PACK PO (15:53)
[2023-07-28] MEDS: Heparin Sodium,Porcine 5,000 UNIT/ML VIAL 5000 UNIT SUBCUT (17:23)
[2023-07-28] MEDS: ALPRAZolam 0.5 MG TABLET 1 MG PO (18:24)
--- NOTE | 2023-07-28 19:30 | PC.NURSE ---
assumed care of pt. pt a&ox4, respirations even and unlabored, pt resting in stretcher, no acute distress noted. pt reporting pain at IV site, Iv remove, attempted to gain IV access at this time.
--- NOTE | 2023-07-28 20:50 | MHC.CM.PN ---
Addendum entered by Bianca Wong 07/28/23 21:02: IMM original copy to patient and copy to medical records. Original Note: IMM 07/27 2430. CM met with admitted patient with bed assignment pending. Pt is A&Ox4. Lives with his daughter. Uses a walking stick. Has no services. PCP verified. HCP on file. THRIVE screening negative. D/C plan: Home without services. Pt would be agreeable to [facility] if needed. No referrals placed at this time. Family will transport home.
--- NOTE | 2023-07-28 21:07 | PC.NURSE ---
22G in left forearm at this time, pt medicated per jun, pt tolerated well with water. pt incontinent of soft stool, pt assisted with changing bed linens.
[2023-07-28] MEDS: PARoxetine HCL 30 MG TABLET 60 MG PO (21:10)
[2023-07-28] MEDS: rOPINIRole HCL 1 MG TABLET 3 MG PO (21:10)
[2023-07-28] MEDS: QUEtiapine Fumarate 100 MG TABLET PO (21:10)
[2023-07-28] MEDS: Mirtazapine 30 MG TABLET PO (21:10)
[2023-07-28] MEDS: Metoprolol Tartrate 25 MG TABLET PO (21:10)
[2023-07-28] MEDS: Zolpidem Tartrate 5 MG TABLET 10 MG PO (21:13)
[2023-07-29] MEDS: 0.9 % Sodium Chloride 1,000 ML 100 ML IVCONT ×3 (02:58→21:45)
[2023-07-29 04:00] VITALS: BP 140/60; PULSE 74; RESP 16; TEMP 36.6; O2SAT 98
[2023-07-29] MEDS: Heparin Sodium,Porcine 5,000 UNIT/ML VIAL 5000 UNIT SUBCUT ×2 (06:25→16:52)
[2023-07-29 07:00] LABS: Hematocrit 31.5 % (42.0-52.0); Mean Corpuscular HGB Conc 31.7 g/dl (31.0-36.0); Mean Corpuscular Hemoglobin 29.3 pg (27.0-33.0); Mean Corpuscular Volume 92.4 fL (80.0-98.0); Mean Platelet Volume 8.9 fL (9.4-12.4); Platelet Count 215 X10*3/uL (160-400); Red Blood Count 3.41 X10*6/uL (4.60-5.80); Red Cell Distribution Width 16.8 % (11.0-16.0); White Blood Count 7.6 X10*3/uL (4.8-10.8)
[2023-07-29 07:16] LABS: Anion Gap 12 (12-20); Blood Urea Nitrogen 31 mg/dL (9-16); Calcium 8.8 mg/dL (8.4-10.2); Carbon Dioxide 19 mmol/L (22-29); Chloride 113 mmol/L (96-108); Creatinine Clr Calc Pharmacy 32.5; Estimated Glomerular Filt Rate 42; Glucose Random 112 mg/dL (60-115); Potassium 4.6 mmol/L (3.3-5.1); Sodium 139 mmol/L (135-145)
[2023-07-29 07:43] VITALS: BP 140/68; PULSE 78; RESP 20; TEMP 37.1; O2SAT 96
[2023-07-29] MEDS: Cholestyramine (With Sugar) 4 GM POWD.PACK PO ×2 (10:24→16:52)
[2023-07-29] MEDS: Isosorbide Mononitrate 30 MG TAB.ER.24H PO (10:24)
[2023-07-29] MEDS: Metoprolol Tartrate 25 MG TABLET PO ×2 (10:24→21:33)
[2023-07-29] MEDS: Mesalamine 400 MG CAP.DRTAB. 800 MG PO ×3 (10:24→21:31)
[2023-07-29] MEDS: Clopidogrel Bisulfate 75 MG TABLET PO (10:24)
[2023-07-29] MEDS: Cyanocobalamin (Vitamin B-12) 1,000 MCG TABLET 1000 MCG PO (10:25)
[2023-07-29] MEDS: Cholecalciferol (Vitamin D3) 25 MCG TABLET PO (10:25)
[2023-07-29] MEDS: Aspirin Enteric Coated 81 MG TABLET.DR PO (10:25)
[2023-07-29] MEDS: 0.9 % Sodium Chloride Flush 3 ML SYRINGE IVFLUSH ×2 (10:25→14:41)
[2023-07-29] MEDS: Multivitamin TABLET 1 TAB PO (10:25)
[2023-07-29] MEDS: ALPRAZolam 0.5 MG TABLET 1 MG PO ×2 (10:30→23:08)
--- NOTE | 2023-07-29 10:35 | P.PNIM_ITS ---
Subjective Subjective Date of Service: 07/29/23 Interval History: Seen and evaluated this morning diarrhea better controlled Cr improving no reported events Review of Systems Review of Systems: Yes all other systems are reviewed and are negative Physical Exam 2 Vital Signs: Vital Signs: Last Vital Signs Temp 98.7 F 07/29/23 07:43 Pulse 78 07/29/23 07:43 Resp 20 07/29/23 07:43 BP 140/68 H 07/29/23 07:43 Pulse Ox 96 07/29/23 07:43 O2 Del Method Room Air 07/29/23 07:43 BMI result Body Mass Index 16.1 Const: Other: Constitutional : Awake, interactive, not in distress Neck : Normal inspection, Supple Cardiovascular : RRR, no JVP, no lower extremity edema Respiratory : good bilateral air entry, no crackles, wheezes or rhonchi Gastrointestinal: soft, lax, Normal bowel sounds, Non tender Skin : Warm, Dry Neurological : Alert & oriented x3, No focal deficit Objective Data Active Medications Acetaminophen (Acetaminophen 325 Mg Tablet) 650 mg PO Q6H PRN PRN Reason: Pain, Mild (Pain Scale 1-3) Alprazolam (Alprazolam 0.5 Mg Tablet) 1 mg PO BID PRN PRN Reason: anxiety Last Admin: 07/29/23 10:30 Dose: 1 mg Documented By: KVNG Aspirin (Aspirin Enteric Coated 81 Mg Tablet.Dr) 81 mg PO DAILY [facility] Last Admin: 07/29/23 10:25 Dose: 81 mg Documented By: KVNG Atorvastatin Calcium (Atorvastatin Calcium 80 Mg Tablet) 80 mg PO BEDTIME [facility] Benzonatate (Benzonatate 100 Mg Capsule) 100 mg PO TID PRN PRN Reason: Cough Cholestyramine Resin (Cholestyramine (With Sugar) 4 Gm Powd.Pack) 4 gm PO BIDWM [facility] Last Admin: 07/29/23 10:24 Dose: 4 gm Documented By: KVNG Clopidogrel Bisulfate (Clopidogrel Bisulfate 75 Mg Tablet) 75 mg PO DAILY [facility] Last Admin: 07/29/23 10:24 Dose: 75 mg Documented By: KVNG Cyanocobalamin (Cyanocobalamin (Vitamin B-12) 1,000 Mcg Tablet) 1,000 mcg PO DAILY [facility] Last Admin: 07/29/23 10:25 Dose: 1,000 mcg Documented By: KVNG Diphenoxylate HCl/Atropine (Diphenoxylate/Atrop 2.5/0.025 Tablet) 1 tab PO BID PRN PRN Reason: Diarrhea Heparin Sodium (Porcine) (Heparin Sodium,Porcine 5,000 Unit/Ml Vial) 5,000 unit SUBCUT Q12H [facility] Last Admin: 07/29/23 06:25 Dose: 5,000 unit Documented By: ANTHONY Sodium Chloride (Ns) 1,000 mls @ 100 mls/hr IVCONT .Q10H [facility] Last Admin: 07/29/23 02:58 Dose: 100 mls/hr Documented By: ANTHONY Isosorbide Mononitrate (Isosorbide Mononitrate 30 Mg Tab.Er.24h) 30 mg PO DAILY [facility]; Protocol Last Admin: 07/29/23 10:24 Dose: 30 mg Documented By: KVNG Mesalamine (Mesalamine 400 Mg Cap.Drtab.) 800 mg PO TID [facility] Last Admin: 07/29/23 10:24 Dose: 800 mg Documented By: KVNG Metoprolol Tartrate (Metoprolol Tartrate 25 Mg Tablet) 25 mg PO BID [facility]; Protocol Last Admin: 07/29/23 10:24 Dose: 25 mg Documented By: KVNG Mirtazapine (Mirtazapine 30 Mg Tablet) 30 mg PO BEDTIME [facility] Last Admin: 07/28/23 21:10 Dose: 30 mg Documented By: WILLIE Multivitamins/Vitamin C (Multivitamin Tablet) 1 tab PO DAILY [facility] Last Admin: 07/29/23 10:25 Dose: 1 tab Documented By: KVNG Ondansetron HCl (Ondansetron Hcl 4 Mg/2 Ml Vial) 4 mg IVPUSH Q8H PRN PRN Reason: Nausea and Vomiting Paroxetine HCl (Paroxetine Hcl 30 Mg Tablet) 60 mg PO BEDTIME [facility] Last Admin: 07/28/23 21:10 Dose: 60 mg Documented By: WILLIE Quetiapine Fumarate (Quetiapine Fumarate 100 Mg Tablet) 100 mg PO BEDTIME [facility] Last Admin: 07/28/23 21:10 Dose: 100 mg Documented By: WILLIE Ropinirole HCl (Ropinirole Hcl 1 Mg Tablet) 3 mg PO BEDTIME [facility] Last Admin: 07/28/23 21:10 Dose: 3 mg Documented By: WILLIE Sodium Chloride (0.9 % Sodium Chloride Flush 3 Ml Syringe) 3 ml IVFLUSH QSHIFT [facility] Last Admin: 07/29/23 10:25 Dose: 3 ml Documented By: KVNG Vitamin D (Cholecalciferol (Vitamin D3) 25 Mcg Tablet) 25 mcg PO DAILY [facility] Last Admin: 07/29/23 10:25 Dose: 25 mcg Documented By: KVNG Zolpidem Tartrate (Zolpidem Tartrate 5 Mg Tablet) 10 mg PO BEDTIME PRN PRN Reason: insomnia Last Admin: 07/28/23 21:13 Dose: 10 mg Documented By: WILLIE Labs 07/29/23 06:45 07/29/23 06:45 Labs: Laboratory Results - last 24 hr 07/28/23 07/28/23 07/29/23 08:26 10:57 06:45 MCV 92.4 MCH 29.3 MCHC 31.7 RDW 16.8 H Plt Count 215 MPV 8.9 L Absolute Nucleated RBC 0.000 Nucleated RBC % (auto) 0.0 Anion Gap 12 Estim Creat Clear Calc 32.5 Estimated GFR 42 Random Glucose 112 Calcium 8.8 D Ur Random Sodium 81.0 Urine Creatinine 139.95 Stl C. cayetanensis PCR Not Detected Stool Rotavirus A PCR Not Detected Stl Adenov F 40/41 PCR Not Detected Stool Astrovirus (PCR) Not Detected Stool Campylobacter PCR Not Detected Stool Cryptosporidium PCR Not Detected Stl Sh Tox Pr E STEC PCR Not Detected Stool E coli O157 PCR Not applicable Stl Enterotoxigenic E PCR Not Detected Stool EPEC (PCR) Not Detected Stool EAEC (PCR) Not Detected Stl E. histolytica PCR Not Detected Stool Giardia Lamblia PCR Not Detected Stl P. shigelloides PCR Not Detected Stool Salmonella PCR Not Detected Stool Sapovirus (PCR) Not Detected Stl Shigella/EIEC PCR Not Detected St Y.enterocolitica PCR Not Detected Stool Vibrio (PCR) Not Detected Stl Vibrio cholerae PCR Not Detected Stl Norovirus GI/GII PCR Not Detected Assessment and Plan (1) MARKUS (acute kidney injury): Status: Acute (2) Coronary artery disease: Status: Acute (3) Radiation proctitis: Status: Acute Plan Pt is a 73-year-old male with a PMH significant for?prostate cancer s/p prostatectomy and radiation therapy complicated by radiation proctitis, CAD s/p PCI in 2015, carotid artery stenosis s/p bilateral carotid stenting, hx of cerebral hemorrhage, epilepsy, HLD, HTN, restless leg syndrome, and anxiety who presents to the ED for evaluation of bowel and bladder incontinence x2 months. MARKUS Improving Cr 1.6 continue maintenance fluids I\O Follow BMP Intractable diarrhea CT of abdomen and pelvis without acute findings Hx radiation proctitis negative GI panel, C diff Lomotil and IVF for now GI input appreciated, use Cholestyramine and Mesalamine for now Leukocytosis resolved secondary to hemoconcentration, not related to sepsis No indication of bacterial infection, no indication for antibiotics at this time Hyperkalemia resolved Follow BMP CAD Continue aspirin, Plavix, statin get Cardiology consult for clearance for colonoscopy HTN Continue lisinopril, metoprolol, isosorbide mononitrate Mood disorder Continue home meds Full Code DVT Prophylaxis: Heparin Pt will require a hospitalization overnight for treatment of?MARKUS secondary to intractable diarrhea. Patient required hospitalization due to significant MARKUS, need for IV fluid replacement, close monitoring of labs, and specialist consultation with Cardiology Quality Stroke Does the patient have a stroke diagnosis?: No VTE Prior VTE?: No VTE Risk Level:: Medical - moderate - high VTE Device Contraindication: Treatment Not Indicated VTE Drug Contraindication: N/A - Med Ordered
[2023-07-29 10:40] VITALS: BMI 17.6
--- NOTE | 2023-07-29 10:47 | MHC.CLN ---
PT IS MODERATELY MALNOURISHED PT WITH MILDLY DEPLETED SUBCUTANEOUS FAT AND MUSCLE MASS, CHRONIC DIARRHEA X 2MONTHS WITH 17% SIGNIFICANT WT LOSS X 6 MONTHS WITH INCREASED NUTRITION NEEDS R/T PROSTATE CA WITH RAD TX DIET RX: CARDIAC-RECOMMEND 2GM NA DIET TO INCREASE PO INTAKE RECOMMEND ADDING ENSURE BID TO INCREASE KCALS SUPPLEMENT TO PROVIDE 700KCALS, 40G PROTEIN MONITOR PO INTAKE AND ENCOURAGE SUPPLEMENTS SEE ALSO FULL CLINICAL NUTRITION ASSESSMENT
--- NOTE | 2023-07-29 10:56 | P.CONCA_ITS ---
History of Present Illness History of Present Illness Date of Service: 07/29/23 Requesting physician: Josef Esquivel Consult reason: pre-op evaluation Chief complaint: MARKUS Narrative: I was requested to see Irwin in cardiology consultation today. Patient has significant left main disease and is planned to undergo surgery but has been having delays. He today tells me that he has been delayed from surgical perspective because they want him to undergo colonoscopy and have other testing done. He comes to the hospital with uncontrolled diarrhea and acute kidney injury. He is scheduled to undergo colonoscopy under MAC. Patient says that he has been taking all his medications. He is supposed to have an echocardiogram although this is not been performed. Last echocardiogram in November had shown normal LV ejection fraction. He has not had any symptoms of heart failure. He also says that he is active and can walk a block without having any symptoms of angina. Only symptoms have when he goes up and down the stairs he gets short of breath. He denies any palpitations, lightheadedness, syncope. Taking all his medications. Has remained hemodynamically stable since been in the hospital. Review of Systems 2 Constitutional: Constitutional: Denies chills, Denies fever(s) and Reports lethargy Eyes: Eyes: Reports no additional eye complaints Cardiovascular: Cardiovascular: Reports no additional cardiovascular complaints Gastrointestinal: Gastrointestinal: Reports diarrhea Genitourinary: Genitourinary: Reports no additional male genitourinary complaints Musculoskeletal: Musculoskeletal: Reports no additional musculoskeletal complaints Neurologic: Reports system reviewed and no additional complaints, except as documented Psychiatric: Psychiatric: Reports no additional psychiatric complaints Endocrine: Endocrine: Reports no additional endocrine complaints Hematologic/Lymphatic: Hematologic/Lymphatic: Reports no additional hematologic/lymphatic complaints [facility] Past Medical History Medical History (Updated 07/29/23 @ 11:00 by Dimitrios Royal MD) Preop cardiovascular exam Abnormal stress test Unstable angina Chest pain Elevated troponin I level Multiple falls Annual physical exam Annual physical exam Positive colorectal cancer screening using Cologuard test Anal discharge Depression Anxiety Prostate cancer Restless legs syndrome Epilepsy 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 Degenerative disc disease, cervical Impaired fasting glucose Pure hypercholesterolemia Bilateral carotid artery stenosis Benign essential hypertension Family History Family History Father Cancer Mother Chronic mental illness Son In good health Daughter In good health Surgical History Surgical History Hx of colonoscopy History of common carotid artery stent placement H/O radical prostatectomy History of inguinal hernia repair Social History Social History Household Members: Family Housing: House Do you presently have visiting nurse or other home services: No Alcohol intake: never Patient Tobacco Use Status: Former Tobacco user Quit Date: quit 7 yrs ago Tobacco use type: Cigarette e-Cigarette/Vaping Use: Never Used Second Hand Smoke Exposure: No Substance Use Type: Marijuana Advance Directives Date on File: 12/08/22 service: No Current occupational status: retired Cognitive needs: No Hearing needs: No Vision needs: Yes Meds Allergies Allergy/AdvReac Type Severity Reaction Status Date / Time zolpidem AdvReac Unknown sleepwalkin Verified 07/05/23 04:09 g Active Medications: Current Medications Acetaminophen (Acetaminophen 325 Mg Tablet) 650 mg PO Q6H PRN PRN Reason: Pain, Mild (Pain Scale 1-3) Alprazolam (Alprazolam 0.5 Mg Tablet) 1 mg PO BID PRN PRN Reason: anxiety Last Admin: 07/29/23 10:30 Dose: 1 mg Aspirin (Aspirin Enteric Coated 81 Mg Tablet.Dr) 81 mg PO DAILY [facility] Last Admin: 07/29/23 10:25 Dose: 81 mg Atorvastatin Calcium (Atorvastatin Calcium 80 Mg Tablet) 80 mg PO BEDTIME [facility] Benzonatate (Benzonatate 100 Mg Capsule) 100 mg PO TID PRN PRN Reason: Cough Cholestyramine Resin (Cholestyramine (With Sugar) 4 Gm Powd.Pack) 4 gm PO BIDWM [facility] Last Admin: 07/29/23 10:24 Dose: 4 gm Clopidogrel Bisulfate (Clopidogrel Bisulfate 75 Mg Tablet) 75 mg PO DAILY [facility] Last Admin: 07/29/23 10:24 Dose: 75 mg Cyanocobalamin (Cyanocobalamin (Vitamin B-12) 1,000 Mcg Tablet) 1,000 mcg PO DAILY [facility] Last Admin: 07/29/23 10:25 Dose: 1,000 mcg Diphenoxylate HCl/Atropine (Diphenoxylate/Atrop 2.5/0.025 Tablet) 1 tab PO BID PRN PRN Reason: Diarrhea Heparin Sodium (Porcine) (Heparin Sodium,Porcine 5,000 Unit/Ml Vial) 5,000 unit SUBCUT Q12H [facility] Last Admin: 07/29/23 06:25 Dose: 5,000 unit Sodium Chloride (Ns) 1,000 mls @ 100 mls/hr IVCONT .Q10H [facility] Last Admin: 07/29/23 02:58 Dose: 100 mls/hr Isosorbide Mononitrate (Isosorbide Mononitrate 30 Mg Tab.Er.24h) 30 mg PO DAILY [facility]; Protocol Last Admin: 07/29/23 10:24 Dose: 30 mg Mesalamine (Mesalamine 400 Mg Cap.Drtab.) 800 mg PO TID [facility] Last Admin: 07/29/23 10:24 Dose: 800 mg Metoprolol Tartrate (Metoprolol Tartrate 25 Mg Tablet) 25 mg PO BID [facility]; Protocol Last Admin: 07/29/23 10:24 Dose: 25 mg Mirtazapine (Mirtazapine 30 Mg Tablet) 30 mg PO BEDTIME [facility] Last Admin: 07/28/23 21:10 Dose: 30 mg Multivitamins/Vitamin C (Multivitamin Tablet) 1 tab PO DAILY [facility] Last Admin: 07/29/23 10:25 Dose: 1 tab Ondansetron HCl (Ondansetron Hcl 4 Mg/2 Ml Vial) 4 mg IVPUSH Q8H PRN PRN Reason: Nausea and Vomiting Paroxetine HCl (Paroxetine Hcl 30 Mg Tablet) 60 mg PO BEDTIME [facility] Last Admin: 07/28/23 21:10 Dose: 60 mg Quetiapine Fumarate (Quetiapine Fumarate 100 Mg Tablet) 100 mg PO BEDTIME [facility] Last Admin: 07/28/23 21:10 Dose: 100 mg Ropinirole HCl (Ropinirole Hcl 1 Mg Tablet) 3 mg PO BEDTIME [facility] Last Admin: 07/28/23 21:10 Dose: 3 mg Sodium Chloride (0.9 % Sodium Chloride Flush 3 Ml Syringe) 3 ml IVFLUSH QSHIFT [facility] Last Admin: 07/29/23 10:25 Dose: 3 ml Vitamin D (Cholecalciferol (Vitamin D3) 25 Mcg Tablet) 25 mcg PO DAILY [facility] Last Admin: 07/29/23 10:25 Dose: 25 mcg Zolpidem Tartrate (Zolpidem Tartrate 5 Mg Tablet) 10 mg PO BEDTIME PRN PRN Reason: insomnia Last Admin: 07/28/23 21:13 Dose: 10 mg Home Medications ?Medication ?Instructions ?Recorded ?Confirmed ?Last Taken ?Type cholecalciferol (vitamin D3) 25 25 mcg PO DAILY 12/01/22 07/28/23 07/27/23 History mcg (1,000 unit) tablet cyanocobalamin (vitamin B-12) 1,000 mcg PO DAILY 12/01/22 07/28/23 07/27/23 History 1,000 mcg tablet [id number] 300 mcg-K 60 1 tab PO DAILY 12/01/22 07/28/23 07/27/23 History mcg-lycop 600 mcg-lutein 300 mcg tablet (Centrum Silver Men) aspirin 81 mg tablet,delayed 81 mg PO DAILY 02/19/23 07/28/23 07/27/23 History release (Adult Low Dose Aspirin) paroxetine HCl 30 mg tablet 60 mg PO BEDTIME 07/28/23 07/28/23 07/27/23 History Physical Exam 2 Vital Signs: Vital Signs: Last Vital Signs Temp 98.7 F 07/29/23 07:43 Pulse 78 07/29/23 07:43 Resp 20 07/29/23 07:43 BP 140/68 H 07/29/23 07:43 Pulse Ox 96 07/29/23 07:43 O2 Del Method Room Air 07/29/23 07:43 BMI result Body Mass Index 17.6 Const: General: cooperative, comfortable, no acute distress, alert and awake Nutritional Appearance: malnourished and thin Orientation/consciousness: p atient oriented x3 Limitations: no limitations HEENT: Head: Yes normocephalic and Yes atraumatic Neck: Neck: Yes trachea midline, Yes supple and Yes no JVD Carotids: bruit Resp: Effort & Inspection: normal respiratory effort Auscultation: clear to auscultation bilaterally Cardio: Jugular venous distension: no JVD Palpation: normal PMI Rate: r egular rate Rhythm: regular rhythm Heart sounds: S1 normal heart sound present, S2 normal heart sound present, no click, no gallops, no murmurs and no rubs GI: Auscultation: normal bowel sounds Skin: General skin exam: no rashes or lesions noted Neuro: General: patient oriented x3 and no focal motor deficits Extrem: General: Yes no clubbing, cyanosis or edema Objective Labs and Meds 07/29/23 06:45 04/04/24 06:45 Lab results: Laboratory Results - last 24 hr 07/28/23 07/28/23 07/29/23 08:26 10:57 06:45 WBC 7.6 RBC 3.41 L Hgb 10.0 L Hct 31.5 L MCV 92.4 MCH 29.3 MCHC 31.7 RDW 16.8 H Plt Count 215 MPV 8.9 L Absolute Nucleated RBC 0.000 Nucleated RBC % (auto) 0.0 Sodium 139 Potassium 4.6 Chloride 113 H Carbon Dioxide 19 L Anion Gap 12 BUN 31 H Creatinine 1.61 H Estim Creat Clear Calc 32.5 Estimated GFR 42 Random Glucose 112 Calcium 8.8 D Ur Random Sodium 81.0 Urine Creatinine 139.95 Stl C. cayetanensis PCR Not Detected Stool Rotavirus A PCR Not Detected Stl Adenov F 40/41 PCR Not Detected Stool Astrovirus (PCR) Not Detected Stool Campylobacter PCR Not Detected Stool Cryptosporidium PCR Not Detected Stl Sh Tox Pr E STEC PCR Not Detected Stool E coli O157 PCR Not applicable Stl Enterotoxigenic E PCR Not Detected Stool EPEC (PCR) Not Detected Stool EAEC (PCR) Not Detected Stl E. histolytica PCR Not Detected Stool Giardia Lamblia PCR Not Detected Stl P. shigelloides PCR Not Detected Stool Salmonella PCR Not Detected Stool Sapovirus (PCR) Not Detected Stl Shigella/EIEC PCR Not Detected St Y.enterocolitica PCR Not Detected Stool Vibrio (PCR) Not Detected Stl Vibrio cholerae PCR Not Detected Stl Norovirus GI/GII PCR Not Detected Assessment and Plan (1) Preop cardiovascular exam: Status: Acute Preoperative cardiovascular risk stratification this elderly gentleman coming with disabling diarrhea leading to acute kidney injury. He needs to undergo colonoscopy under MAC which is considered low risk procedure. He does have underlying coronary artery disease stable. He has no current progressive symptoms angina or signs and symptoms of heart failure. He is currently clinically cardiovascular yu appears to be optimized to undergo the procedure with intermediate risk for perioperative cardiovascular morbidity mortality. Avoid significant hypotension. Replace fluid loss quickly. Continue all medication including statins and metoprolol in the perioperative. Will sign of the case. Thank you for allowing me to partake in his care Procedures Date of Service Date of Service: 07/29/23
[2023-07-29 11:10] VITALS: BP 140/63; PULSE 80; RESP 18; TEMP 37.2; O2SAT 98
[2023-07-29 15:54] VITALS: BP 108/63; PULSE 75; RESP 14; TEMP 36.8; O2SAT 100
[2023-07-29 18:27] LABS: Leukocytes Stool Qualitative NEGATIVE (NEGATIVE)
[2023-07-29 18:34] LABS: CDiff Gene PCR POSITIVE (Negative)
[2023-07-29 19:16] LABS: CDIFF Internal ctrl Dots and bkg OK (V)
[2023-07-29 19:20] LABS: CDiff Toxin Negative (Negative)
[2023-07-29 19:45] VITALS: BP 116/55; PULSE 75; RESP 21; TEMP 37.5; O2SAT 97
[2023-07-29] MEDS: PARoxetine HCL 30 MG TABLET 60 MG PO (21:29)
[2023-07-29] MEDS: QUEtiapine Fumarate 100 MG TABLET PO (21:29)
[2023-07-29] MEDS: rOPINIRole HCL 1 MG TABLET 3 MG PO (21:34)
[2023-07-29] MEDS: Atorvastatin Calcium 80 MG TABLET PO (21:36)
[2023-07-29] MEDS: Mirtazapine 30 MG TABLET PO (21:37)
[2023-07-29] MEDS: vancomycin HCL 125 MG CAPSULE PO (21:38)
[2023-07-29] MEDS: Zolpidem Tartrate 5 MG TABLET 10 MG PO (21:50)
[2023-07-29 23:45] VITALS: BP 92/59; PULSE 76; RESP 19; TEMP 37; O2SAT 98
[2023-07-30] MEDS: vancomycin HCL 125 MG CAPSULE PO ×2 (02:31→08:00)
[2023-07-30 03:34] VITALS: BP 111/64; PULSE 77; RESP 19; TEMP 36.7; O2SAT 95
[2023-07-30] MEDS: Heparin Sodium,Porcine 5,000 UNIT/ML VIAL 5000 UNIT SUBCUT (05:07)
--- NOTE | 2023-07-30 07:44 | P.CDIM_ITS ---
PROVIDER RESPONSE TEXT: To clarify, the appropriate diagnosis supported by the clinical indicators: Other (explain): severe underweight QUERY TEXT: PHYSICIAN'S DOCUMENTATION REQUEST Date of Query: 07/29/2023 11:13 AM EDT Patient Name: Irwin Clark Admit Date: 07/28/2023 Dear Josef Esquivel, A review of the medical record indicates additional documentation may be needed. Please review below and update the documentation accordingly. Clinical Indicators: Clinical nutrition note: patient is moderately malnourished with BMI 16 Mildly depleted subcutaneous fat and muscle mass. Recommend Ensure BID to increase KCALS If possible, please provide an associated diagnosis related to the abnormal BMI, such as: Underweight Malnutrition mild, moderate, severe Cachexia Other (explain) Clinically unable to determine (explain) Thank you, Eva Bermeo, CCS, CDIS Use of terms such as suspected, likely, concern for, or probable (associated with a specific diagnosi s that is being evaluated, monitored, or treated as if it exists) are acceptable and can be coded in the inpatient se tting, when documented at the time of discharge. Please use your independent medical judgment in providing your response. THIS QUERY IS PART OF THE PERMANENT MEDICAL RECORD
[2023-07-30 07:48] VITALS: BP 126/77; PULSE 79; RESP 18; TEMP 37; O2SAT 96
[2023-07-30 07:48] LABS: Hematocrit 28.7 % (42.0-52.0); Hemoglobin 9.2 g/dl (14.0-18.0); Mean Corpuscular HGB Conc 32.1 g/dl (31.0-36.0); Mean Corpuscular Hemoglobin 29.4 pg (27.0-33.0); Mean Corpuscular Volume 91.7 fL (80.0-98.0); Mean Platelet Volume 9.9 fL (9.4-12.4); Platelet Count 195 X10*3/uL (160-400); Red Blood Count 3.13 X10*6/uL (4.60-5.80); Red Cell Distribution Width 16.7 % (11.0-16.0); White Blood Count 7.1 X10*3/uL (4.8-10.8)
[2023-07-30] MEDS: Mesalamine 400 MG CAP.DRTAB. 800 MG PO (08:00)
[2023-07-30] MEDS: Metoprolol Tartrate 25 MG TABLET PO (08:00)
[2023-07-30] MEDS: Cholestyramine (With Sugar) 4 GM POWD.PACK PO (08:00)
[2023-07-30] MEDS: 0.9 % Sodium Chloride Flush 3 ML SYRINGE IVFLUSH (08:00)
[2023-07-30] MEDS: Isosorbide Mononitrate 30 MG TAB.ER.24H PO (08:00)
[2023-07-30] MEDS: Cholecalciferol (Vitamin D3) 25 MCG TABLET PO (08:00)
[2023-07-30] MEDS: Clopidogrel Bisulfate 75 MG TABLET PO (08:00)
[2023-07-30] MEDS: Multivitamin TABLET 1 TAB PO (08:00)
[2023-07-30] MEDS: Aspirin Enteric Coated 81 MG TABLET.DR PO (08:00)
[2023-07-30] MEDS: Cyanocobalamin (Vitamin B-12) 1,000 MCG TABLET 1000 MCG PO (08:00)
[2023-07-30] MEDS: 0.9 % Sodium Chloride 1,000 ML 100 ML IVCONT (08:01)
[2023-07-30 08:02] LABS: Anion Gap 10 (12-20); Blood Urea Nitrogen 22 mg/dL (9-16); Calcium 8.5 mg/dL (8.4-10.2); Carbon Dioxide 20 mmol/L (22-29); Chloride 113 mmol/L (96-108); Creatinine Clr Calc Pharmacy 46.8; Estimated Glomerular Filt Rate > 60; Glucose Random 82 mg/dL (60-115); Potassium 4.1 mmol/L (3.3-5.1); Sodium 139 mmol/L (135-145)
[2023-07-30] MEDS: ALPRAZolam 0.5 MG TABLET 1 MG PO (08:08)
[2023-07-30 08:11] LABS: Anion Gap 11 (12-20); Blood Urea Nitrogen 21 mg/dL (9-16); Calcium 8.5 mg/dL (8.4-10.2); Carbon Dioxide 20 mmol/L (22-29); Chloride 112 mmol/L (96-108); Creatinine Clr Calc Pharmacy 47.2; Estimated Glomerular Filt Rate > 60; Glucose Random 81 mg/dL (60-115); Potassium 4.4 mmol/L (3.3-5.1); Sodium 139 mmol/L (135-145)
--- NOTE | 2023-07-30 11:26 | MHC.CLN ---
F/U PT IS MODERATELY MALNOURISHED SEE FULL CLINICAL NUTRITION ASSESSMENT DATED 07/29/23 PO INTAKE 100% X 2 MEALS DIET RX: 2GM NA -APPROPRIATE PT RECEIVING ENSURE BID TO INCREASE KCALS PROVIDES 700KCALS, 40G PROTEIN MONITOR PO INTAKE AND ENCOURAGE SUPPLEMENTS
[2023-07-30 11:37] VITALS: BP 163/79; PULSE 72; RESP 18; TEMP 36.7; O2SAT 97
--- NOTE | 2023-07-30 11:57 | PM.DS ---
DS: Providers Provider Date of Service: 07/30/23 Date of admission: 07/28/23 12:20 Primary care physician: Jayy Foster MD Consults: 07/28/23 12:38 Consult to Gastroenterology Routine Consulting [place] [facility] Reason for consultation: Diarrhea and incontinence x2 months 07/28/23 14:05 Consult to Cardiology Routine Consulting Provider[place] [facility] Reason for consultation: Cardiac risk assessment for colonoscopy DS: Diagnosis Discharge Diagnosis (1) Preop cardiovascular exam: Status: Acute (2) MARKUS (acute kidney injury): Status: Acute (3) Clostridioides difficile diarrhea: Status: Acute DS: Summary Hospital Course Hospital Course: Admission note Pt is a 73-year-old male with a PMH significant for?prostate cancer s/p prostatectomy and radiation therapy complicated by radiation proctitis, CAD s/p PCI in 2014, carotid artery stenosis s/p bilateral carotid stenting, hx of cerebral hemorrhage, epilepsy, HLD, HTN, restless leg syndrome, and anxiety who presents to the ED for evaluation of bowel and bladder incontinence x2 months. Pt reports has been having painless, non-bloody liquid diarrhea since April, usually 10-15 episodes per day. Occasional lower abdominal cramping extending to groin. Incontinent of urine and stool began a few weeks after diarrhea started. States he currently often wakes up covered in his stool. Reports has been eating and drinking regularly. Has taken a number of OTC medications for diarrhea to no effect, including Imodium and Pepto-Bismol. Denies fever, chills, nausea, vomiting. Denies acute abdominal pain. No chest pain/pressure, palpitations. Chronic shortness of breath and cough at baseline. No headache, acute vision changes. Of note, pt previously presented to the ED in 12/2022 with hematochezia likely secondary to radiation proctitis. Colonoscopy at that time was deferred due to anesthesia concerns for cardiac risk. Patient was transferred to [facility] for potential cardiac recatheterization and was deemed when likely need three-vessel CABG. Patient has begun preliminary workup but has not undergone surgery due to his chronic diarrhea. In the ED pt was vitals largely WNL. Labs were significant for leukocytosis of 11.7, potassium 5.3, BUN 50, creatinine 2.90 (up from 1.13 on 01/27/2023), and alk-phos 127. Stable normocytic anemia of 10.231.9. UA negative for UTI. Stool panel and C diff pending. CT?of abdomen and pelvis negative for acute findings or traumatic pathology. Redemonstrated likely proctitis with reactive lymphadenopathy similar to previous on 01/27/2023. EKG demonstrated normal sinus rhythm without evidence of significant ST elevations or depressions. Pt was treated with 1 L IVF. Pt will be admitted to the hospital for treatment and further evaluation of MARKUS in the setting of intractable diarrhea. Hospital course The patient was admitted to the hospital as he was found to have found to have kidney injury from dehydration.Improved with IV fluids back to baseline. he was evaluated for ongoing diarrhea. seen by GI who would like to do colonoscopy as outpatient. suggested meselamine trial. The patient stool testing found to have an infection carrier of Clostridium difficile which can cause diarrhea. Started on Vancomycin treatment with good response. He will be discharged on 2 weeks of Vancomycin with a plan to follow with GI as outpatient for colonoscopy. To use imodium as needed. He was seen by Cardiology who cleared him for colonoscopy procedure with a moderate fariba-op risk. Had hyperkalemia on presentation which resolved with usage of Lokelma. Discharge Plan Continue Vancomycin as prescribed To follow with dr Brooks as outpatient for colonoscopy Time Attestation Discharge Coordination Time (in mins): 44 Quality: Safe Use of Opioids Does Pt have an Active Cancer Diagnosis on the Problem List?: No Quality: Stroke Does the patient have a stroke diagnosis?: No Physical Exam Vital Signs: Vital Signs: Last Vital Signs Temp 98.0 F 07/30/23 11:37 Pulse 72 07/30/23 11:37 Resp 18 07/30/23 11:37 BP 163/79 H 07/30/23 11:37 Pulse Ox 97 07/30/23 11:37 O2 Del Method Room Air 07/30/23 11:37 BMI result Body Mass Index 17.6 Const: Other: Constitutional : Awake, interactive, not in distress Neck : Normal inspection, Supple Cardiovascular : RRR, no JVP, no lower extremity edema Respiratory : good bilateral air entry, no crackles, wheezes or rhonchi Gastrointestinal: soft, lax, Normal bowel sounds, Non tender Skin : Warm, Dry Neurological : Alert & oriented x3, No focal deficit DS: Data Data Completed and Pending Completed studies during hospitalization [Text1]: Procedures Transfusion of Nonautologous Red Blood Cells into Peripheral Vein, Percutaneous Approach (12/01/22) Labs on day of discharge: Laboratory Results - last 24 hr 07/28/23 07/30/23 07/30/23 17:00 07:07 07:07 WBC 7.1 RBC 3.13 L Hgb 9.2 L Hct 28.7 L MCV 91.7 MCH 29.4 MCHC 32.1 RDW 16.7 H Plt Count 195 MPV 9.9 Absolute Nucleated RBC 0.000 Nucleated RBC % (auto) 0.0 Sodium 139 139 Potassium 4.1 Chloride Carbon Dioxide Anion Gap BUN Creatinine Estim Creat Clear Calc Estimated GFR Random Glucose Calcium Stool Leukocytes, Qual NEGATIVE C. difficile Tox B Gene POSITIVE A* C. difficile Toxin A&B Negative C. difficile Interpret SEE NOTE 07/30/23 07/30/23 07/30/23 07:07 07:07 07:07 WBC RBC Hgb Hct MCV MCH MCHC RDW Plt Count MPV Absolute Nucleated RBC Nucleated RBC % (auto) Sodium Potassium 4.4 Chloride 113 H 112 H Carbon Dioxide 20 L 20 L Anion Gap 10 L BUN Creatinine Estim Creat Clear Calc Estimated GFR Random Glucose Calcium Stool Leukocytes, Qual C. difficile Tox B Gene C. difficile Toxin A&B C. difficile Interpret 07/30/23 07/30/23 07/30/23 07:07 07:07 07:07 WBC RBC Hgb Hct MCV MCH MCHC RDW Plt Count MPV Absolute Nucleated RBC Nucleated RBC % (auto) Sodium Potassium Chloride Carbon Dioxide Anion Gap 11 L BUN 22 H 21 H Creatinine 1.12 1.11 Estim Creat Clear Calc 46.8 Estimated GFR Random Glucose Calcium Stool Leukocytes, Qual C. difficile Tox B Gene C. difficile Toxin A&B C. difficile Interpret 07/30/23 07/30/23 07/30/23 07:07 07:07 07:07 WBC RBC Hgb Hct MCV MCH MCHC RDW Plt Count MPV Absolute Nucleated RBC Nucleated RBC % (auto) Sodium Potassium Chloride Carbon Dioxide Anion Gap BUN Creatinine Estim Creat Clear Calc 47.2 Estimated GFR > 60 > 60 Random Glucose 82 81 Calcium 8.5 Stool Leukocytes, Qual C. difficile Tox B Gene C. difficile Toxin A&B C. difficile Interpret 07/30/23 07:07 WBC RBC Hgb Hct MCV MCH MCHC RDW Plt Count MPV Absolute Nucleated RBC Nucleated RBC % (auto) Sodium Potassium Chloride Carbon Dioxide Anion Gap BUN Creatinine Estim Creat Clear Calc Estimated GFR Random Glucose Calcium 8.5 Stool Leukocytes, Qual C. difficile Tox B Gene C. difficile Toxin A&B C. difficile Interpret Imaging Chest x-ray: Radiologist's impression: ITS Impressions Abdomen/Pelvis CT 07/28/23 06:53 IMPRESSION: * In this patient with history of injury, there is no evidence of traumatic pathology involving the solid or hollow viscera on this noncontrast examination. No hemoperitoneum or pneumoperitoneum. * The imaging findings are consistent with proctitis with presence of reactive lymphadenopathy. Similar abnormalities were seen on 01/27/2023. No perirectal abscess. * Diverticula of the sigmoid colon without diverticulitis. * Moderate centrilobular emphysema in the visualized lung bases, and small clustered nodules in the posterior left lower lobe are consistent with sequela of bronchiolitis. Discharge Plan Discharge Anticipated Discharge Date/Time: 07/30/23 11:33 Patient Disposition: Home, Self-Care Discharge Diagnosis: C.Diff carrier Acute kidney injury Referrals: Jayy Foster MD [Primary Care Provider] - 1 Week Discharge Medications: New vancomycin 125 mg Capsule 125 mg PO Q6H 13 Days Qty: 52 0RF Continued ropinirole 3 mg tablet 3 mg PO BEDTIME Qty: 100 2RF clopidogrel 75 mg tablet 75 mg PO DAILY Qty: 100 2RF Hold Instructions: Resume on 12/15/22. hold until clear by cardiology quetiapine 100 mg tablet 100 mg PO BEDTIME Qty: 90 3RF zolpidem 10 mg tablet 10 mg PO BEDTIME PRN (Reason: insomnia) Qty: 30 1RF metoprolol tartrate 25 mg tablet 25 mg PO BID 30 Days Qty: 60 2RF isosorbide mononitrate 30 mg tablet extended release 24 hr 30 mg PO DAILY 90 Days Qty: 90 1RF alprazolam 1 mg tablet 1 mg PO BID PRN (Reason: anxiety) 30 Days Qty: 60 0RF lisinopril 20 mg tablet 20 mg PO DAILY Qty: 100 2RF Hold Instructions: Resume on 12/18/22. hold due to markus -moniter renal function and start lisinopril according to renal function rosuvastatin 40 mg tablet 40 mg PO DAILY Qty: 100 2RF paroxetine HCl 30 mg tablet 60 mg PO BEDTIME cyanocobalamin (vitamin B-12) 1,000 mcg Tablet 1,000 mcg PO DAILY cholecalciferol (vitamin D3) 25 mcg (1,000 unit) Tablet 25 mcg PO DAILY Centrum Silver Men [id number] mcg Tablet 1 tab PO DAILY aspirin [Adult Low Dose Aspirin] 81 mg tablet,delayed release (DR/EC) 81 mg PO DAILY No Action mirtazapine 30 mg tablet 30 mg PO BEDTIME 90 Days Qty: 90 3RF Discharge Orders: Discharge Order (Routine); Ordered 07/30/23 Ordered By: Josef Esquivel Diet: Advance to usual diet Activity on Discharge: As tolerated Stand Alone Forms: Patient Portal Discharge page Print Language: [place] Care Plan Goals: Read below Health Concerns: Read below Plan of Treatment: Read below Assessment: You were found to have kidney injury from dehydration.Improved with IV fluids back to baseline. You were found to have an infection called Clostridium difficile which can cause diarrhea. Started on Vancomycin treatment with good response. Cardiology feels that you can tolerate anesthasia for colonoscopy procedure. Continue Vancomycin as prescribed To follow with dr Brooks as outpatient for colonoscopy Discharge Date/Time: 07/30/23 12:53
--- NOTE | 2023-07-30 13:17 | MHC.CM.PN ---
Pt is medically cleared for D/C home self-care, family to transport.
== END 2023-07-30 12:53 | disposition home or self-care (01) | DRG 372 ==
LOC: HO.ED 06:38 → HO.EDOVER 12:30 → HO.IMC 19:51
PROVIDERS: Physician Assistant Medical; Admitting Provider Student in an Organized Health Care Education/Training Program; Emergency Provider Emergency Medicine; PCP Internal Medicine; Visit Provider Student in an Organized Health Care Education/Training Program
DX: A04.72 Enterocolitis due to Clostridium difficile, not specified as recurrent (principal); N17.9 Acute kidney failure, unspecified; Z68.1 Body mass index [BMI] 19.9 or less, adult; I10 Essential (primary) hypertension; I25.10 Atherosclerotic heart disease of native coronary artery without angina pectoris; F39 Unspecified mood [affective] disorder; E86.0 Dehydration; E87.5 Hyperkalemia; R63.6 Underweight; Z95.5 Presence of coronary angioplasty implant and graft; Z20.822 Contact with and (suspected) exposure to COVID-19; Z87.891 Personal history of nicotine dependence; Z79.02 Long term (current) use of antithrombotics/antiplatelets; Z79.82 Long term (current) use of aspirin; Z79.899 Other long term (current) drug therapy
CPT/HCPCS: 0241U; 36415; 74176; 80048; 80053; 81001; 82570; 83690; 83735; 84300; 85025; 85027; 87015; 87207; 87324; 87493; 87507; 89055; 93005; 99285; J1644

== ENCOUNTER → 2023-07-28 07:49 | Outpatient (BNV) | payer MEDICARE, SELFPAY | PROVIDERS: Emergency Provider Emergency Medicine; PCP Internal Medicine; Visit Provider Internal Medicine Cardiovascular Disease | DX: E87.5 Hyperkalemia (principal) | CPT/HCPCS: 93010 ==

== ENCOUNTER → 2023-07-28 12:20 | Outpatient (BNV) | payer MEDICARE, SELFPAY | PROVIDERS: Admitting Provider Student in an Organized Health Care Education/Training Program; Emergency Provider Emergency Medicine; PCP Internal Medicine; Visit Provider Internal Medicine Gastroenterology | DX: K62.7 Radiation proctitis (principal) | CPT/HCPCS: 99223 ==

== ENCOUNTER → 2023-07-28 12:20 | Outpatient (BNV) | payer MEDICARE, SELFPAY | PROVIDERS: Admitting Provider Student in an Organized Health Care Education/Training Program; Emergency Provider Emergency Medicine; PCP Internal Medicine; Visit Provider Student in an Organized Health Care Education/Training Program | DX: Z01.810 Encounter for preprocedural cardiovascular examination (principal); N17.9 Acute kidney failure, unspecified; A04.72 Enterocolitis due to Clostridium difficile, not specified as recurrent | CPT/HCPCS: 99223; 99233; 99239 ==

== ENCOUNTER → 2023-07-28 12:20 | Outpatient (BNV) | payer MEDICARE, SELFPAY | PROVIDERS: Admitting Provider Student in an Organized Health Care Education/Training Program; Emergency Provider Emergency Medicine; PCP Internal Medicine; Visit Provider Internal Medicine Cardiovascular Disease | DX: Z01.810 Encounter for preprocedural cardiovascular examination (principal) | CPT/HCPCS: 99222 ==

== ENCOUNTER 2023-10-13 06:16 | Outpatient (REF) | payer MEDICARE, SELFPAY ==
[2023-10-13 06:43] LABS: MANUAL DIFF FLAG NO
[2023-10-13 07:49] LABS: Basophils Percent Auto 0.5 % (0-2); Eosinophils Absolute Auto 0.3 X10*3/uL (0.0-0.4); Eosinophils Percent Auto 3.5 % (0-4); Hematocrit 36.6 % (42.0-52.0); Hemoglobin 11.5 g/dl (14.0-18.0); Imm Gran Abs Auto 0.04 X10*3/uL (0.00-0.03); Imm Gran Pct Auto 0.5 % (0.0-0.4); Lymphocytes Absolute Auto 1.1 X10*3/uL (1.2-4.9); Lymphocytes Percent Auto 12.5 % (20-40); Mean Corpuscular HGB Conc 31.4 g/dl (31.0-36.0); Mean Corpuscular Volume 92.4 fL (80.0-98.0); Mean Platelet Volume 8.9 fL (9.4-12.4); Monocytes Absolute Auto 0.6 X10*3/uL (0.1-1.2); Monocytes Percent Auto 6.5 % (2-11); Neutrophils Absolute Auto 6.8 x10*3/uL (2.0-8.3); Neutrophils Percent Auto 76.5 % (45-73); Platelet Count 308 X10*3/uL (160-400); Red Blood Count 3.96 X10*6/uL (4.60-5.80); Red Cell Distribution Width 14.1 % (11.0-16.0); White Blood Count 8.8 X10*3/uL (4.8-10.8)
[2023-10-13 08:16] LABS: Alanine Aminotransferase 11 U/L (0-40); Albumin Level 3.7 g/dL (3.5-5.0); Alkaline Phosphatase 100 U/L (39-117); Anion Gap 11 (12-20); Aspartate Amino Transferase 13 U/L (5-37); Bilirubin Total 0.3 mg/dL (0.0-1.0); Blood Urea Nitrogen 18 mg/dL (9-16); Calcium 9.4 mg/dL (8.4-10.2); Carbon Dioxide 26 mmol/L (22-29); Chloride 109 mmol/L (96-108); Cholesterol 100 mg/dL (<200); Estimated Glomerular Filt Rate 51; Glucose Fasting 117 mg/dL (60-99); HDL Cholesterol 38 mg/dL (>40); LDL Cholesterol Calculated 39 mg/dL (<100); Potassium 4.2 mmol/L (3.3-5.1); Sodium 142 mmol/L (135-145); Total Protein 6.8 g/dL (6.5-8.0); Triglycerides 116 mg/dL (<150)
[2023-10-13 08:34] LABS: TSH reflex Free T4 1.25 uIU/mL (0.32-4.0); Vitamin D 25-OH Total 36.8 ng/mL (>30)
== END 2023-10-13 06:17 | disposition home or self-care (01) ==
LOC: HO.LAB 06:16
PROVIDERS: PCP Internal Medicine; Visit Provider Internal Medicine
DX: I10 Essential (primary) hypertension (principal); E78.00 Pure hypercholesterolemia, unspecified; E55.9 Vitamin D deficiency, unspecified
CPT/HCPCS: 36415; 80053; 80061; 82306; 84443; 85025

== ENCOUNTER 2023-10-13 10:11 | Outpatient (AMB) | payer MEDICARE, SELFPAY ==
[2023-10-13 10:12] VITALS: BP 90/62; PULSE 109; O2SAT 96; BMI 17.8
--- NOTE | 2023-10-13 10:12 | A.OFFPC_ITS ---
Vital Signs 10/13/23 10:12 Height 5 ft 10 in Weight 124 lb BMI 17.8 BP 90/62 Blood Pressure Location Lt brachial Position Sitting Pulse 109 H Pulse Source Pulse Oximeter Pulse Oximetry (%) 96 Oxygen Delivery Method Room Air Intake Visit Reasons: follow up - see comments Allergist Required: No Allergies zolpidem Adverse Reaction (Unknown, Verified 10/13/23 10:53) sleepwalking Medication List - Last Reconciled 10/13/23 by Jayy Foster MD alprazolam 1 mg PO BID PRN 30 days aspirin (Adult Low Dose Aspirin) 81 mg PO DAILY cholecalciferol (vitamin D3) 25 mcg PO DAILY clopidogrel 75 mg PO DAILY cyanocobalamin (vitamin B-12) 1,000 mcg PO DAILY isosorbide mononitrate ER 30 mg PO DAILY 90 days lisinopril 20 mg PO DAILY metoprolol tartrate 25 mg PO BID 30 days mirtazapine 30 mg PO BEDTIME 90 days [id number] [phone] mcg (Centrum Silver Men) 1 tab PO DAILY paroxetine HCl 60 mg PO BEDTIME quetiapine 100 mg PO BEDTIME ropinirole 3 mg PO BEDTIME rosuvastatin 40 mg PO DAILY vancomycin 125 mg PO Q6H 13 days zolpidem 10 mg PO BEDTIME PRN Tobacco use date assessed: 10/13/23 Fall risk assessment: No Falls in past year Last assessed Fall Risk: 10/13/23 Dental Screening Dental Screen Date: 10/13/23 Did you have a dental visit in the last 12 months?: No Did you have a dental problem in the last 6 months where you did not have access to dental care?: No HPI follow up - see comments HPI Details Patient comes in today for his follow up visit States that he still has frequent diarrhea, which has been going on for over a couple of months now - his stool is mostly watery with a brownish color Relates that he tested positive for C. diff a couple of months ago and was on some Rx for treatment for a while He has been following up with GI for his issues lately and is now scheduled for a repeat colonoscopy in January 2024 for further evaluation Patient states that he has been eating okay with no nausea, vomiting or abdominal pain lately States that he has been experiencing on and off dizziness lately, especially when he gets up too fast His BP today was noted to be low and he also appears tachycardic when his vitals were checked He denies any chest pains, no SOB He had his follow up labs done earlier today - to discuss his results [facility] Medical History (Updated 10/18/23 @ 04:17 by Jayy Foster MD) Coronary artery disease Radiation proctitis Abnormal stress test Unstable angina Chest pain Elevated troponin I level Multiple falls Positive colorectal cancer screening using Cologuard test Anal discharge Depression Anxiety Prostate cancer Restless legs syndrome Epilepsy 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 Degenerative disc disease, cervical Impaired fasting glucose Pure hypercholesterolemia Bilateral carotid artery stenosis Benign essential hypertension Surgical History Hx of colonoscopy History of common carotid artery stent placement H/O radical prostatectomy History of inguinal hernia repair Family History Father Cancer Mother Chronic mental illness Son In good health Daughter In good health Social History Household Members: Family Housing: House Do you presently have visiting nurse or other home services: No Alcohol intake: never Patient Tobacco Use Status: Former Tobacco user Tobacco use type: Cigarette e-Cigarette/Vaping Use: Never Used Second Hand Smoke Exposure: No Substance Use Type: Marijuana Advance Directives Date on File: 12/08/22 service: No Current occupational status: retired Cognitive needs: No Hearing needs: No Vision needs: Yes Questionnaire PHQ-9 Over the last 2 weeks, how often have you been bothered by any of the following problems? 1. Little interest or pleasure in doing things: several days 2. Feeling down, depressed, or hopeless: nearly every day 3. Trouble falling or staying asleep, or sleeping too much: several days 4. Feeling tired or having little energy: several days 5. Poor appetite or overeating: several days 6. Feeling bad about yourself - or that you are a failure or have let yourself or your family down: several days 7. Trouble concentrating on things, such as reading the newspaper or watching television: several days 8. Moving or speaking so slowly that other people could have noticed. Or the opposite - being so fidgety or restless that you have been moving around a lot more than usual: several days 9. Thoughts that you would be better off or of hurting yourself in some way: not at all Total score: 10 Depression Screening Interpretation: Positive Depression Screening Follow-up: Existing condition and In treatment Depression Screening Done: Yes 76801 - PHQ-9 Billing: Yes Source: Developed by Drs. Rory Porter, Taniya Mayen, Phil Simms and colleagues, with an educational maria c from [employer]. Thrive Questionnaire Date Thrive assessed: 10/13/23 I am a: Patient What is your living situation today?: I have a steady place to live Within the past 12 months, did the food you bought not last and you didn't have the money to get more?: Never true Within the past 12 months, did you worry whether your food would run out before you got money to buy more?: Never true Do you have trouble paying for medicines?: No Do you have trouble getting transportation to medical appointments?: No Do you have trouble paying your heating and electricity bill?: No Do you have trouble taking care of your child, family member or friend?: No Do you have trouble with day-to-day activities such as bathing, preparing meals, shopping, managing finances, etc.?: No Are you currently unemployed and looking for a job?: No Are you interested in more education?: No Please select the resources that you would like help with: None Currently or been in a relationship where the following occur: no concerns reported THRIVE Score: 0 AUDIT C Alcohol Use Questionnaire (AUDIT-C) 1. How often do you have a drink containing alcohol?: Never 3. How often do you have six or more drinks on one occasion?: Never Total Score: 0 Score Reviewed/Action Taken: Yes ELISA-7 AMB Questionnaire ELISA-7 Date ELISA - 7 assessed: 10/13/23 Feeling nervous, anxious, or on edge: 3 = Nearly every day Not being able to stop or control worryin = Nearly every day Worrying too much about different things: 3 = Nearly every day Trouble relaxin = Nearly every day Being so restless that it is hard to sit still: 3 = Nearly every day Becoming easily annoyed or irritable: 3 = Nearly every day Feeling afraid as if something awful might happen: 1 = Several days Total ELISA-7 score (0-4 normal; 5-9 mild; 10-14 moderate; 15-21 severe): 19 Source: Developed by Drs. Rory Porter, Taniya Mayen, Phil Simms and colleagues, with an educational maria c from [employer]. ELISA-7 Assessment Billing ELISA-7 Assessment Tool: ELISA-7 Assessment 56651 Review of Systems Const Reports difficulty sleeping (chronic), Denies fatigue, Denies fever(s) and Denies headache(s) ENT Denies dysphagia, Denies dizziness, Denies otalgia, Denies headache(s), Reports neck pain (chronic), Denies odynophagia and Denies sore throat Card Denies chest pain, Denies palpitations and Denies dyspnea Resp Denies cough, Denies dyspnea and Denies wheezing GI Denies abdominal pain, Reports hematochezia (at times), Denies constipation, Denies dysphagia, Denies heartburn, Reports diarrhea (recurrent), Reports loose stools, Denies nausea, Denies odynophagia and Denies vomiting Denies dysuria, Denies nocturia and Denies urinary frequency Musc Denies back pain and Reports neck pain (chronic) Skin/Breast Denies rash Neuro Denies dizziness and Denies headache(s) Psych Reports anxiety (better controlled lately) and Reports depression (controlled) Endo Denies fatigue and Denies palpitations Simba/Lymph Denies easy bruising Aller/Immun Denies wheezing Physical exam (Primary Care) Vital Signs: Last Vital Signs Pulse 109 H 10/13/23 10:12 BP 90/62 10/13/23 10:12 Pulse Ox 96 10/13/23 10:12 Oxygen Delivery Method Room Air 10/13/23 10:12 BMI result Body Mass Index 17.8 Tobacco/Smoking Status: Tobacco use Status Tobacco use date assessed 10/13/23 10/13/23 10:13 Patient Tobacco Use Status Former Tobacco user 10/13/23 10:13 Tobacco use type Cigarette 10/13/23 10:13 e-Cigarette/Vaping Use Never Used 10/13/23 10:13 PHQ-9: PHQ-9 Score PHQ-9: Total score 10 10/13/23 12:48 Depression Screening Interpretation: Positive Depression Screening Follow-up: Existing condition and In treatment Thrive Assessment: Date of Thrive Assessment Date Thrive assessed 10/13/23 10/13/23 10:13 Currently or been in a relationship where the following occur: no concerns reported Const General: no acute distress and alert HENMT Ears: TM's normal bilaterally and EAC's normal Throat: Yes posterior oropharynx normal and Yes tonsils normal Neck Neck: Yes no lymphadenopathy and Yes supple Thyroid: Thyroid normal Resp Auscultation: clear to auscultation bilaterally, no rales and no wheezes Cardio Rate: regular rate Rhythm: regular rhythm Heart sounds: no murmurs GI Palpation (GI): Soft to palpation and nontender Auscultation: normal bowel sounds General: Yes no CVA tenderness Back/Spine/Pelvis Back: no CVA tenderness Cervical Spine: Cervical spine tenderness (chronic) Skin Rashes: no rashes Extrem General: Yes no clubbing, cyanosis or edema Results Reviewed Results Reviewed: Laboratory Tests 07/28/23 07/28/23 10/13/23 04:45 17:00 06:42 WBC 8.8 Hgb 11.5 L D Hct 36.6 L D Plt Count 308 D Sodium 142 Potassium 4.2 Creatinine 1.37 Estimated GFR 51 Fasting Glucose 117 H Calcium 9.4 D Magnesium 1.9 Total Bilirubin 0.3 AST 13 ALT 11 Triglycerides 116 Cholesterol 100 LDL Cholesterol, Calc 39 HDL Cholesterol 38 L 25-OH Vitamin D Total 36.8 TSH 1.25 C. difficile Tox B Gene POSITIVE A* C. difficile Toxin A&B Negative Assessment and Plan Assessment & Plan (1) Diarrhea: Code(s): R19.7 - Diarrhea, unspecified Qualifiers: Diarrhea type: presumed infectious Qualified Code(s): R19.7 - Diarrhea, unspecified Plan: Patient tested positive for C. diff a couple of months ago and was reportedly tr eated with the appropriate Abx but he is currently still reportedly (+) frequent loose stools / diarrhea Will send him for repeat testing for C. diff for further evaluation He also has had recurrent diarrhea and loose stools even before he tested positive for C. diff - states that he's had recurrent loose stools since he had radiation Tx for prostate cancer several years ago Colonoscopy done in 2021 revealed (+) presence of radiation proctocolitis - has radiation-induced vascular ectasia (RAVE) and he also had a rectal ulcer seen at the time He is currently scheduled for a repeat colonoscopy in January 2024 Follow up with GI as scheduled (2) Coronary artery disease: Code(s): I25.10 - Atherosclerotic heart disease of [place] coronary artery without angina pectoris Qualifiers: Coronary Disease-Associated Artery/Lesion type: [place] artery [place] vs. transplanted heart: [place] heart Associated angina: with stable angina Qualified Code(s): I25.118 - Atherosclerotic heart disease of [place] coronary artery with other forms of angina pectoris Plan: Cardiac catheterization done at [facility] on 01/14/2023 revealed (+) significant multi-vessel coronary artery disease He was subsequently seen by Dr. Reid Tolliver in consultation and was recommended to undergo CABG, likely 2 to [address]-LAD, SVG-OM and possible diagonal Patient states that he has not heard from cardiac surgery since although cardiac surgery OV notes indicated that patient will need further work ups prior to his cardiac procedure including chest CT without contrast, bilateral screening carotid US and bilateral lower extremity mapping as well as repeat colonoscopy with GI due to his recurrent diarrhea Continue Isosorbide Mononitrate ER 30 mg QD and Aspirin 81 mg QD; he is also now back on Clopidogrel 75 mg QD (3) Bilateral carotid artery stenosis: Comment: S/P bilateral carotid stenting with Dr. Almaazn Code(s): I65.23 - Occlusion and stenosis of bilateral carotid arteries Plan: Was following up with vascular surgery regularly before but has not been back to see them since 2019 Repeat carotid US done a few months ago revealed (+) stent across the RIGHT c arotid bulb/proximal ICA with normal velocities. No evidence of hemodynamically significant in-stent stenosis; (+) stent across the LEFT carotid bulb/proximal ICA with elevated velocity in the distal aspect of the stent possibly representing a near 50% stenosis He will likely need to have this rechecked as part of his work up prior to his cardiac bypass Continue Aspirin 81 mg QD and Clopidogrel 75 mg QD (4) Pure hypercholesterolemia: Code(s): E78.00 - Pure hypercholesterolemia, unspecified Plan: Results of his labs done earlier this morning reviewed and discussed with patient Reinforced low cholesterol diet Continue Rosuvastatin 40 mg QD (5) Benign essential hypertension: Code(s): I10 - Essential (primary) hypertension Plan: Reinforced low sodium diet - goal is systolic BP of at least 130 mm or less Continue Lisinopril 20 mg QD (6) Impaired fasting glucose: Code(s): R73.01 - Impaired fasting glucose Plan: HgbA1c remained normal at 5.2% when last checked a few months ago Reinforced low calorie diet/exercise as tolerated (7) Degenerative disc disease, cervical: Code(s): M50.30 - Other cervical disc degeneration, unspecified cervical region Plan: Reinforced activity and weight-lifting restrictions to avoid aggravating his neck pain He used to take Oxycodone for pain but he has stopped taking them a few months ago and now uses CBD oil, which he feels work just as well (8) Epilepsy: Comment: no seizures since 2014 Code(s): G40.909 - Epilepsy, unspecified, not intractable, without status epilepticus Qualifiers: Epilepsy type: unspecified Intractability: not intractable Status epilepticus: without status epilepticus Qualified Code(s): G40.909 - Epilepsy, unspecified, not intractable, without status epilepticus Plan: Stable - follow up with neurology as scheduled (9) Restless legs syndrome: Code(s): G25.81 - Restless legs syndrome Plan: Continue Ropinirole 3 mg Q HS (10) Prostate cancer: Comment: S/P radiation Tx and hormonal Tx with Bicalutamide x 2.5 years Code(s): C61 - Malignant neoplasm of prostate Plan: Follow up with urology as scheduled PSA was normal when last checked a few months ago (11) Insomnia: Code(s): G47.00 - Insomnia, unspecified Qualifiers: Insomnia type: unspecified Qualified Code(s): G47.00 - Insomnia, unspecified Plan: Sleep hygiene reinforced Continue Zolpidem 10 mg Q HS PRN (12) Anxiety: Code(s): F41.9 - Anxiety disorder, unspecified Plan: Continue Paroxetine 60 mg QD, Hydroxyzine 50 mg TID PRN and Alprazolam 1 mg BID PRN (13) Depression: Code(s): F32.9 - Major depressive disorder, single episode, unspecified Qualifiers: Depression Type: major depressive disorder Major depression recurrence: recurrent Active/Remission status: currently active Major depression episode severity: unspecified Qualified Code(s): F33.9 - Major depressive disorder, recurrent, unspecified Plan: Continue Quetiapine 100 mg Q HS, Mirtazapine 30 mg Q HS and Paroxetine 60 mg QD Plan Follow up in 3 months Orders: Orders Leukocytes Stool Qualitative 10/13/23 A04.72 - Enterocolitis due to Clostridium difficile, not specified as recurrent CDiff Gene PCR 10/13/23 A04.72 - Enterocolitis due to Clostridium difficile, not specified as recurrent Medications: Changed From lisinopril 20 mg PO DAILY 100 tabs 2RF To lisinopril 10 mg PO DAILY 90 days 90 tabs 1RF Coding Level of Care Code Est Pt Level 4 (70610) Complex EM visit Add On G2211 Diagnoses Diarrhea of presumed infectious origin R19.7 Diarrhea type: presumed infectious Coronary artery disease of [place] artery of [place] heart with stable angina pectoris I25.118 Coronary Disease-Associated Artery/Lesion type: [place] artery [place] vs. transplanted heart: [place] heart Associated angina: with stable angina Bilateral carotid artery stenosis I65.23 Pure hypercholesterolemia E78.00 Benign essential hypertension I10 Impaired fasting glucose R73.01 Degenerative disc disease, cervical M50.30 Nonintractable epilepsy without status epilepticus, unspecified epilepsy type G40.909 Epilepsy type: unspecified Intractability: not intractable Status epilepticus: without status epilepticus Restless legs syndrome G25.81 Prostate cancer C61 Insomnia, unspecified type G47.00 Insomnia type: unspecified Anxiety F41.9 Episode of recurrent major depressive disorder, unspecified depression episode severity F33.9 Depression Type: major depressive disorder Major depression recurrence: recurrent Active/Remission status: currently active Major depression episode severity: unspecified Additional Codes ELISA-7 Assessment Billing - ELISA-7 Assessment Tool: ELISA-7 Assessment [id number] ([id number])
== END 2023-10-13 11:06 | disposition home or self-care (01) ==
PROVIDERS: PCP Internal Medicine; Visit Provider Internal Medicine
DX: I25.118 Atherosclerotic heart disease of native coronary artery with other forms of angina pectoris (principal); C61 Malignant neoplasm of prostate; G40.909 Epilepsy, unspecified, not intractable, without status epilepticus; F33.9 Major depressive disorder, recurrent, unspecified; R19.7 Diarrhea, unspecified; I65.23 Occlusion and stenosis of bilateral carotid arteries; E78.00 Pure hypercholesterolemia, unspecified; I10 Essential (primary) hypertension; M50.30 Other cervical disc degeneration, unspecified cervical region; R73.01 Impaired fasting glucose; G25.81 Restless legs syndrome; G47.00 Insomnia, unspecified
CPT/HCPCS: 99214; G2211

== ENCOUNTER 2023-10-20 18:25 | Outpatient (REF) | payer MEDICARE, SELFPAY ==
[2023-10-21 10:51] LABS: Leukocytes Stool Qualitative NEGATIVE (NEGATIVE)
[2023-10-21 11:36] LABS: CDiff Gene PCR NEGATIVE (Negative)
== END 2023-10-20 18:26 | disposition home or self-care (01) ==
LOC: HO.LNP 18:25
PROVIDERS: Visit Provider Internal Medicine
DX: A04.72 Enterocolitis due to Clostridium difficile, not specified as recurrent (principal)
CPT/HCPCS: 87493; 89055

== ENCOUNTER 2023-12-04 11:53 | Inpatient (IN) | payer MEDICARE, SELFPAY ==
[2023-12-04] VITALS (10 sets, daily range): BP systolic 79–136; BP diastolic 48–71; PULSE 85–110; RESP 16–20; TEMP 36.4–37.2; O2SAT 94–97; BMI 16.6; BMI 16.8
--- NOTE | ~2023-12-04 | CT_ITS ---
EXAMINATION: CT ABDOMEN AND PELVIS WITHOUT CONTRAST CLINICAL INFORMATION: Abdominal pain. Rectal bleeding. COMPARISON: 07/28/2023 TECHNIQUE: Multidetector volumetric imaging was performed from the superior aspect of the liver through the pubic symphysis. Sagittal and coronal reformatted images were obtained on the technologist's workstation. This CT examination was performed using dose optimization techniques as appropriate, variously including the following: *Automated exposure control *Adjustment of mA and/or kV according to patient size (this includes techniques or standardized protocols for targeted exams where dose is matched to indication/reason for exam; i.e. extremities or head) *Use of iterative reconstruction technique DLP: 370 mGy-cm FINDINGS: LUNG BASES: Mild dependent atelectasis. Moderate centrilobular emphysema. LIVER, GALLBLADDER, AND BILIARY TREE: The liver is normal in size, shape, and attenuation. No focal hepatic lesion or biliary ductal dilatation is present. The gallbladder is unremarkable with no evidence of radiopaque gallstones, gallbladder wall thickening, or obvious pericholecystic inflammatory changes. PANCREAS: Small foci of calcification are again seen in the pancreatic head near the ampulla of Vater. No appreciable ductal dilatation. Additional small calcification is noted in the pancreatic body near the junction with the tail. SPLEEN: Normal ADRENAL GLANDS: Unremarkable. KIDNEYS AND URETERS: Bilateral perinephric stranding is noted. Kidneys normal in size and contour without focal lesions. No obstructing calculi are identified. There is mild to moderate bilateral hydroureteronephrosis extending to the level of the bladder. BLADDER: There is a 3.2 x 6 x 3 cm focus of heterogeneous intermediate attenuation within the bladder dependently which is favored to correspond to intraluminal blood products. Air is also noted in the bladder, presumably related to catheterization. Heterogeneous blood products are also suspected within the prostatic and membranous urethra. GASTROINTESTINAL TRACT: Stomach, small bowel, and colon are normal in caliber. Moderate volume of well-formed stool in the colon. There is bowel wall thickening at the rectum surrounding the stool ball. There is mild surrounding fat stranding. No intraperitoneal free fluid. A small amount of gas is present left lateral aspect of the expected location of the prostate, similar to prior. ABDOMINAL WALL: Small fat-containing umbilical hernia. No bowel involvement. LYMPH NODES: Normal. VASCULAR: Atherosclerotic calcifications are present in the abdominal aorta and iliac arteries. No aneurysmal dilatation. PELVIC VISCERA: Prostate gland is not well seen, possibly surgically absent. As noted above, there are small foci of gas extending to the left lateral intrapelvic soft tissues from the expected location of the prostate at the base of the bladder. Heterogeneous blood products are suspected within the membranous urethra. OSSEOUS STRUCTURES: No acute osseous findings. Mild multilevel degenerative disc disease in the lumbar spine. Mild osteoarthritis in the hips. CT/CT abdomen pelvis wo IV con IMPRESSION: 1. Generalized rectal wall thickening with surrounding fat stranding, most consistent with proctitis. 2. Blood products in the bladder anterior urethra as well as intraluminal gas in the bladder. Query recent bladder catheterization. No other causes of intraluminal hemorrhage identified. 3. Mild to moderate bilateral hydroureteronephrosis without a clear cause of obstruction, potentially related to the intraluminal blood products. 4. Small foci of gas in the left lateral soft tissues at the base of the bladder in the expected location of the prostate. Although this could be due to a contained perforation, gas is seen retrospectively on this region on the prior study as well, raising the possibility of a diverticulum or other more chronic extraluminal connection
--- NOTE | ~2023-12-04 | XR_ITS ---
EXAMINATION: XR CHEST CLINICAL INFORMATION: Weakness COMPARISON: 01/02/2023 TECHNIQUE: Frontal view of the chest was obtained. FINDINGS: Lungs are hyperexpanded. Mild bibasilar atelectasis. No consolidation, pneumothorax, or pleural effusion. Cardiac and mediastinal contours are normal. Pulmonary vasculature is unremarkable. Degenerative disc disease is present in the thoracic spine. XR/XR chest 1V IMPRESSION: Mild bibasilar atelectasis. No acute pulmonary findings.
--- NOTE | ~2023-12-04 | XR_ITS ---
EXAMINATION: XR CHEST CLINICAL INFORMATION: Fever COMPARISON: Chest x-rays of 12/04/2023, 01/02/2023 TECHNIQUE: Frontal view of the chest was obtained. FINDINGS: Cardiomediastinal silhouette is stable and normal. The lungs are mildly hyperexpanded. There is increased translucency in the upper lung zones, right greater than left with attenuation of lung markings reflecting underlying changes of emphysema. No focal consolidation, changes of congestion, significant pleural effusions or pneumothorax are seen. XR/XR chest 1V IMPRESSION: Changes of emphysema. No convincing radiographic evidence of pneumonia. Electronically signed by: Missael Escalante MD 01/02/2024 07:15 AM EDT RP
--- NOTE | ~2023-12-04 | CT_ITS ---
EXAMINATION: CT ABDOMEN AND PELVIS WITHOUT CONTRAST CLINICAL INFORMATION: Urinary retention COMPARISON: CT abdomen and pelvis 12/04/2023 TECHNIQUE: Multidetector volumetric imaging was performed from the superior aspect of the liver through the pubic symphysis. Sagittal and coronal reformatted images were obtained on the technologist's workstation. This CT examination was performed using dose optimization techniques as appropriate, variously including the following: *Automated exposure control *Adjustment of mA and/or kV according to patient size (this includes techniques or standardized protocols for targeted exams where dose is matched to indication/reason for exam; i.e. extremities or head) *Use of iterative reconstruction technique DLP: 427 mGy-cm FINDINGS: LUNG BASES: The visualized lung bases are unremarkable. LIVER, GALLBLADDER, AND BILIARY TREE: The liver is normal in size, shape, and attenuation. No focal hepatic lesion or biliary ductal dilatation is present. The gallbladder is unremarkable with no evidence of radiopaque gallstones, gallbladder wall thickening, or obvious pericholecystic inflammatory changes. PANCREAS: Unremarkable. SPLEEN: Unremarkable. ADRENAL GLANDS: Unremarkable. KIDNEYS AND URETERS: Unchanged bilateral moderate hydronephrosis extending to the bladder. No nephrolithiasis. BLADDER: The bladder is distended with air-fluid level, similar to prior. Again there is high density material layering dependently in the bladder, extending to the level of the prostatic urethra. This appears increased in volume since the prior exam. Again there is a small focus of air in the left lateral soft tissues the base of the bladder in the region of the prostate. GASTROINTESTINAL TRACT: Moderate stool burden. Otherwise the large and small bowel are normal in caliber. Rectal wall thickening and perirectal inflammatory fat stranding. ABDOMINAL WALL: No significant hernia is appreciated. LYMPH NODES: Normal. VASCULAR: Extensive atherosclerosis in the abdominal aorta PELVIC VISCERA: Unremarkable. OSSEOUS STRUCTURES: Unremarkable. CT/CT abdomen pelvis wo IV con IMPRESSION: 1. Again there is thickening of the rectum and surrounding fat stranding concerning for proctitis or stercoral colitis. 2. Increasing density material within the bladder and prostatic urethra, again concerning for blood products. Persistent air-fluid level in the bladder. Query catheterization. 3. Unchanged small focus of gas in the left lateral soft tissues at the base of the bladder/prostate. 4. Moderate hydronephrosis. Fleischner guidelines were followed.
--- NOTE | 2023-12-04 12:22 | ECG_ITS ---
Test Reason : Hypotension Blood Pressure : / mmHG Vent. Rate : 090 BPM Atrial Rate : 090 BPM P-R Int : 172 ms QRS Dur : 072 ms QT Int : 384 ms P-R-T Axes : 090 030 082 degrees QTc Int : 469 ms Normal sinus rhythm Normal ECG When compared with ECG of 28-JUL-2023 07:56, No significant change was found Referred By: Eusebia Stevens Electronically Signed By:MAYE MONTEMAYOR MD
[2023-12-04] MEDS: ondansetron HCL 4 MG/2 ML VIAL IVPUSH (12:43)
[2023-12-04] MEDS: SODIUM CHLORIDE 1714.59 ML IV (12:44)
--- NOTE | 2023-12-04 12:49 | ED_ITS ---
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 He started to see what he calls bloody muddy diarrhea for 2 days as well. But has had it on and off since the winter. He feels weak, tired and is having a hard time urinating. The bulge disappeared so he states he thinks the hernia popped. He vomited x 1 with nausea, no fevers. MD elicited complaint: abdominal pain Pertinent past history: other (hernia) Onset (ago): day(s) (2) Pain Consistency: colicky Location: LUQ and RLQ Severity: moderate Quality: aching Radiation: none Migration to: no migration Exacerbating factors: movement Relieving factors: nothing Context: history of similar episodes Associated symptoms: nausea, vomiting, diarrhea and hematochezia Related Data Home Medications ?Medication ?Instructions ?Recorded ?Confirmed cholecalciferol (vitamin D3) 25 25 mcg PO DAILY 12/01/22 10/13/23 mcg (1,000 unit) tablet cyanocobalamin (vitamin B-12) 1,000 mcg PO DAILY 12/01/22 10/13/23 1,000 mcg tablet [id number] 300 mcg-K 60 1 tab PO DAILY 12/01/22 10/13/23 mcg-lycop 600 mcg-lutein 300 mcg tablet (Centrum Silver Men) aspirin 81 mg tablet,delayed 81 mg PO DAILY 02/19/23 10/13/23 release (Adult Low Dose Aspirin) paroxetine HCl 30 mg tablet 60 mg PO BEDTIME 07/28/23 10/13/23 Previous Rx's ?Medication ?Instructions ?Recorded quetiapine 100 mg tablet 100 mg PO BEDTIME #90 tabs 03/01/23 metoprolol tartrate 25 mg tablet 25 mg PO BID 30 days #60 tabs 04/14/23 isosorbide mononitrate 30 mg 30 mg PO DAILY 90 days #90 tabs 05/17/23 tablet,extended release 24 hr rosuvastatin 40 mg tablet 40 mg PO DAILY #100 tabs 07/28/23 mirtazapine 30 mg tablet 30 mg PO BEDTIME 90 days #90 tabs 07/30/23 vancomycin 125 mg capsule 125 mg PO Q6H 13 days #52 caps 07/30/23 zolpidem 10 mg tablet 10 mg PO BEDTIME PRN insomnia #30 09/21/23 tabs lisinopril 10 mg tablet 10 mg PO DAILY 90 days #90 tabs 10/13/23 clopidogrel 75 mg tablet 75 mg PO DAILY #100 tabs 11/02/23 ropinirole 3 mg tablet 3 mg PO BEDTIME #100 tabs 11/02/23 alprazolam 1 mg tablet 1 mg PO BID PRN anxiety 30 days 11/19/23 #60 tabs Allergies Allergy/AdvReac Type Severity Reaction Status Date / Time zolpidem AdvReac Unknown sleepwalkin Verified 12/04/23 12:03 g Review of Systems Review of Systems Constitutional : No Weight loss, No Fever, No Chills ENT/Mouth : No sore throat, No Rhinorrhea Eyes: No Swelling, No Redness Cardiovascular : No Chest Pain, No SOB, NoEdema Respiratory : No Cough, No Sputum, No Wheezing Gastrointestinal : Positive Nausea, Positive Vomiting, positive Diarrhea, positive abdominal Pain, pos Hematochezia, No Melena Genitourinary : No Dysuria, No Urinary Frequency, No Hematuria, No Urgency Musculoskeletal : No joint pain, No Myalgias, No Joint Swelling Skin : No Skin Lesions, No rash Neuro : No Weakness, No Numbness, No Dizziness, No Headache All other systems reviewed and are negative. FOR[facility]LY [facility], [facility] Past Medical History Attestation statement: The following information was validated with the patient. Source: old records reviewed Medical History Coronary artery disease Radiation proctitis Abnormal stress test Unstable angina Chest pain Elevated troponin I level Multiple falls Positive colorectal cancer screening using Cologuard test Anal discharge Depression Anxiety Prostate cancer Restless legs syndrome Epilepsy 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 Degenerative disc disease, cervical Impaired fasting glucose Pure hypercholesterolemia Bilateral carotid artery stenosis Benign essential hypertension Surgical History Hx of colonoscopy History of common carotid artery stent placement H/O radical prostatectomy History of inguinal hernia repair Family History Family History Father Cancer Mother Chronic mental illness Son In good health Daughter In good health Social History Social History Household Members: Family Housing: House Do you presently have visiting nurse or other home services: No Alcohol intake: never Patient Tobacco Use Status: Former Tobacco user Tobacco use type: Cigarette Smoked in Last 30 Days: No e-Cigarette/Vaping Use: Never Used Second Hand Smoke Exposure: No Use of substances other than those prescribed or required for medical reasons: No Substance Use Type: Marijuana Advance Directives: Yes Advance Directives on File: Yes Advance Directives Date on File: 12/08/22 service: No Current occupational status: retired Cognitive needs: No Hearing needs: No Vision needs: Yes Physical Exam ED Vital Signs: Vital Signs - 24 hr 12/04/23 12:01 12/04/23 12:44 12/04/23 13:49 Temperature 97.6 F Pulse Rate 97 88 89 Respiratory Rate 16 20 18 Blood Pressure 79/49 L 86/50 L 110/62 Pulse Oximetry 96 96 97 Oxygen Delivery Method Room Air Room Air Room Air 12/04/23 14:00 Temperature Pulse Rate 90 Respiratory Rate 18 Blood Pressure 114/61 Pulse Oximetry 96 Oxygen Delivery Method BMI result Body Mass Index 16.6 Appearance: Alert. Oriented X3. No acute distress. Eyes: Pupils equal, round and reactive to light. ENT: Pharynx dry MM. Neck: Normal inspection. Neck supple. CVS: Normal heart rate and rhythm. Pulses normal. Respiratory: No respiratory distress. Breath sounds normal. : blood from meatus noted, rectal - brown stool Abdomen: Soft and no mass felt ttp in RLQ no rebound Rectal: brown stool suspect it was mixed with blood from meatus as well as he just urinated on himself a little bit Skin: Skin warm and dry. pale skin color. poor skin turgor. Extremities: No lower extremity edema. Neuro: Oriented X 3. No motor deficit. No sensory deficit. Course Course Course Narrative: BP was low on arrival - likely due to dehydration or anemia not infection or severe sepsis. 1255pm Reevaluation(s) Reevaluation #1: responding to fluids Reevaluation #2: possible infection suspected 209pm IV zosyn ordered Reevaluation #3: given degree of hematuria epps ordered for [address] Additional Reevaluation(s): no pain with CBI urine is clearing up repeat CBC ordered. 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 No hernia noted. Differential Diagnosis Differential Diagnoses: The differential diagnosis associated with the presentation includes diarrhea, anemia, GI bleed, colitis, incarcerated hernia Admission/Observation Consideration of admission/observation: Escalation of care including admission/observation considered admit given MARKUS and findings Consult Healthcare Provider Management of the patient was discussed with: Hospitalist (will admit) and Social Work Assistant Dr. Jordan - discussed case and is aware and will see in AM CATHETER WAS DONE AFTER CT SCAN Lab Data [facility] Lab Attestation statement: I reviewed the patient's lab results. 12/04/23 13:56 12/04/23 13:56 Labs: Lab Results 12/04/23 12/04/23 12/04/23 Range/Units 13:21 13:53 13:55 WBC (4.8-10.8) X10*3/uL RBC (4.60-5.80) X10*6/uL Hgb (14.0-18.0) g/dl Hct (42.0-52.0) % MCV (80.0-98.0) fL MCH (27.0-33.0) pg MCHC (31.0-36.0) g/dl RDW (11.0-16.0) % Plt Count (160-400) X10*3/uL MPV (9.4-12.4) fL Immature Gran % (Auto) (0.0-0.4) % Neut % (Auto) (45-73) % Lymph % (Auto) (20-40) % [place] % (Auto) (2-11) % Eos % (Auto) (0-4) % Baso % (Auto) (0-2) % Lymph # (Auto) (1.2-4.9) X10*3/uL [place] # (Auto) (0.1-1.2) X10*3/uL Eos # (Auto) (0.0-0.4) X10*3/uL Baso # (Auto) (0.0-0.2) X10*3/uL Abs Immat Gran (auto) (0.00-0.03) X10*3/uL Absolute Neuts (auto) (2.0-8.3) x10*3/uL Absolute Nucleated RBC (0.0-0.012) X10*3/uL Nucleated RBC % (auto) (0.0-0.2) /100WBC PT (11.1-13.3) SEC INR (0.9-1.1) VBG pH 7.28 L (7.32-7.43) VBG pCO2 40 mmHg VBG pO2 32 mmHg VBG HCO3 19 L (22-26) mmol/L VBG O2 Saturation 40.0 % VBG Base Excess -6.5 mmol/L Sodium (135-145) mmol/L Potassium (3.3-5.1) mmol/L Chloride (96-108) mmol/L Carbon Dioxide (22-29) mmol/L Anion Gap (12-20) BUN (9-16) mg/dL Creatinine (0.5-1.4) mg/dL Estim Creat Clear Calc Estimated GFR Random Glucose (60-115) mg/dL Lactic Acid (0.5-2.0) mmol/L Calcium (8.4-10.2) mg/dL Magnesium (1.6-2.6) mg/dL Total Bilirubin (0.0-1.0) mg/dL Direct Bilirubin (0.0-0.5) mg/dL AST (5-37) U/L ALT (0-40) U/L Alkaline Phosphatase (39-117) U/L Troponin I High Sens (<3.5-35.0) ng/L C-Reactive Protein (< or = 0.50) mg/dL B-Natriuretic Peptide (<100) pg/mL Total Protein (6.5-8.0) g/dL Albumin (3.5-5.0) g/dL Lipase (8-78) U/L Stool Occult Blood (NEGATIVE) Influenza Type A (PCR) NEGATIVE (Negative) Influenza Type B (PCR) NEGATIVE (Negative) RSV RNA Qual (PCR) NEGATIVE (Negative) SARS-CoV-2 RNA (RT-PCR) NEGATIVE (Negative) Blood Type B Positive Antibody Screen NEGATIVE 12/04/23 12/04/23 Range/Units 13:56 15:21 WBC 13.7 H (4.8-10.8) X10*3/uL RBC 3.01 L D (4.60-5.80) X10*6/uL Hgb 8.6 L D (14.0-18.0) g/dl Hct 27.0 L D (42.0-52.0) % MCV 89.7 (80.0-98.0) fL MCH 28.6 (27.0-33.0) pg MCHC 31.9 (31.0-36.0) g/dl RDW 14.6 (11.0-16.0) % Plt Count 246 (160-400) X10*3/uL MPV 8.7 L (9.4-12.4) fL Immature Gran % (Auto) 0.3 (0.0-0.4) % Neut % (Auto) 82.1 H (45-73) % Lymph % (Auto) 9.7 L (20-40) % [place] % (Auto) 6.6 (2-11) % Eos % (Auto) 1.0 (0-4) % Baso % (Auto) 0.3 (0-2) % Lymph # (Auto) 1.3 (1.2-4.9) X10*3/uL [place] # (Auto) 0.9 (0.1-1.2) X10*3/uL Eos # (Auto) 0.1 (0.0-0.4) X10*3/uL Baso # (Auto) 0.0 (0.0-0.2) X10*3/uL Abs Immat Gran (auto) 0.04 H (0.00-0.03) X10*3/uL Absolute Neuts (auto) 11.3 H (2.0-8.3) x10*3/uL Absolute Nucleated RBC 0.000 (0.0-0.012) X10*3/uL Nucleated RBC % (auto) 0.0 (0.0-0.2) /100WBC PT 13.4 H D (11.1-13.3) SEC INR 1.1 (0.9-1.1) VBG pH (7.32-7.43) VBG pCO2 mmHg VBG pO2 mmHg VBG HCO3 (22-26) mmol/L VBG O2 Saturation % VBG Base Excess mmol/L Sodium 141 (135-145) mmol/L Potassium 4.5 (3.3-5.1) mmol/L Chloride 112 H (96-108) mmol/L Carbon Dioxide 18 L (22-29) mmol/L Anion Gap 16 (12-20) BUN 43 H (9-16) mg/dL Creatinine 2.76 H (0.5-1.4) mg/dL Estim Creat Clear Calc 19.5 Estimated GFR 23 Random Glucose 94 (60-115) mg/dL Lactic Acid 2.2 H* (0.5-2.0) mmol/L Calcium 8.0 L D (8.4-10.2) mg/dL Magnesium 2.1 (1.6-2.6) mg/dL Total Bilirubin 0.4 (0.0-1.0) mg/dL Direct Bilirubin 0.2 (0.0-0.5) mg/dL AST 11 (5-37) U/L ALT 7 (0-40) U/L Alkaline Phosphatase 99 (39-117) U/L Troponin I High Sens 9.0 (<3.5-35.0) ng/L C-Reactive Protein 22.43 H (< or = 0.50) mg/dL B-Natriuretic Peptide 60 (<100) pg/mL Total Protein 5.7 L (6.5-8.0) g/dL Albumin 3.1 L (3.5-5.0) g/dL Lipase 26 (8-78) U/L Stool Occult Blood POSITIVE (NEGATIVE) Influenza Type A (PCR) (Negative) Influenza Type B (PCR) (Negative) RSV RNA Qual (PCR) (Negative) SARS-CoV-2 RNA (RT-PCR) (Negative) Blood Type Antibody Screen Independent Interpretation I performed an independent interpretation of an: EKG, Plain X-Ray (no pneumonia) and CT Scan Interpretation: Rate: 90 Rhythm: NSR [place]: normal Normal P waves. Normal DESIRAE. Normal QRS complex. ST T wave : inverted aVL, no CARTER qTC: 469 prior studies: no acute ischemia The study has been interpreted contemporaneously by me. . Radiology Impression Discussion of test interpretation with radiology: I have reviewed the radiologist's reading. Independent Historian Clinical information obtained from an independent historian. History obtained from or confirmed by: EMS External Record Review External record reviewed: Inpatient record Medications Administered Discontinued Medications Generic Name Dose Route Start Last Admin Trade Name Freq PRN Reason Stop Dose Admin Sodium Chloride 1,714.59 mls @ 1,714.59 mls/hr 12/04/23 12:28 12/04/23 14:00 Ns 30 ml/kg infuse over 1 hr (1714.59 ml) 12/04/23 13:27 Infused IV Infusion .Q1H STA Piperacillin Sod/Tazobactam 50 mls @ 100 mls/hr 12/04/23 14:08 12/04/23 15:00 Sod 3.375 gm/ Sodium Chloride IV 12/04/23 14:37 Infused ONCE ONE Infusion Lidocaine HCl 10 ml 12/04/23 14:50 12/04/23 16:21 Lidocaine Hcl 2 % Urojet 10 Ml Jel.Pf.Justo TOPICAL 12/04/23 14:51 10 ml ONCE ONE Administration Ondansetron HCl 4 mg 12/04/23 12:28 12/04/23 12:43 Ondansetron Hcl 4 Mg/2 Ml Vial IVPUSH 12/04/23 12:29 4 mg ONCE ONE Administration Critical Care Time Critical Care Time Critical Care Time: Yes Total Critical Care Time: 60 Attestation: sepsis protocol, retention with CBI, repeat labs, admission, medical consult, IVF bolus I attest to this time spent taking care of the patient Discharge Plan Discharge Clinical Impression: Acidosis, lactic, MARKUS (acute kidney injury), ABLA (acute blood loss anemia) Hematuria Qualifiers: Hematuria type: gross Qualified Code(s): R31.0 - Gross hematuria Patient Disposition: Admitted As Inpatient Print Language: Wallisian
[2023-12-04 14:01] LABS: Venous Blood Gas Refer to POC result
[2023-12-04 14:01] LABS: VBG Base Excess -6.5 mmol/L; VBG HCO3 19 mmol/L (22-26); VBG pCO2 40 mmHg; VBG pH 7.28 (7.32-7.43); VBG pO2 32 mmHg
[2023-12-04 14:02] LABS: MANUAL DIFF FLAG NO
[2023-12-04 14:05] LABS: Basophils Percent Auto 0.3 % (0-2); Eosinophils Absolute Auto 0.1 X10*3/uL (0.0-0.4); Hemoglobin 8.6 g/dl (14.0-18.0); Imm Gran Abs Auto 0.04 X10*3/uL (0.00-0.03); Imm Gran Pct Auto 0.3 % (0.0-0.4); Lymphocytes Absolute Auto 1.3 X10*3/uL (1.2-4.9); Lymphocytes Percent Auto 9.7 % (20-40); Mean Corpuscular HGB Conc 31.9 g/dl (31.0-36.0); Mean Corpuscular Hemoglobin 28.6 pg (27.0-33.0); Mean Corpuscular Volume 89.7 fL (80.0-98.0); Mean Platelet Volume 8.7 fL (9.4-12.4); Monocytes Absolute Auto 0.9 X10*3/uL (0.1-1.2); Monocytes Percent Auto 6.6 % (2-11); Neutrophils Absolute Auto 11.3 x10*3/uL (2.0-8.3); Neutrophils Percent Auto 82.1 % (45-73); Platelet Count 246 X10*3/uL (160-400); Red Blood Count 3.01 X10*6/uL (4.60-5.80); Red Cell Distribution Width 14.6 % (11.0-16.0); White Blood Count 13.7 X10*3/uL (4.8-10.8)
[2023-12-04 14:10] LABS: Influenza A PCR NEGATIVE (Negative); Influenza B PCR NEGATIVE (Negative); Resp Syncy Virus RNA Qual PCR NEGATIVE (Negative); SARS COV2 PCR INHOUSE NEGATIVE (Negative)
[2023-12-04 14:13] LABS: INTERNATIONAL NORM RATIO 1.1 (0.9-1.1); Prothrombin Time 13.4 SEC (11.1-13.3)
[2023-12-04] MEDS: Piperacillin Sodium/Tazobactam 3.375 GM in 0.9 % Sodium Chloride 50 ML IV (14:15)
[2023-12-04 14:17] LABS: Lactic Acid 2.2 mmol/L (0.5-2.0)
[2023-12-04 14:22] LABS: Alanine Aminotransferase 7 U/L (0-40); Albumin Level 3.1 g/dL (3.5-5.0); Alkaline Phosphatase 99 U/L (39-117); Anion Gap 16 (12-20); Aspartate Amino Transferase 11 U/L (5-37); Bilirubin Direct 0.2 mg/dL (0.0-0.5); Bilirubin Total 0.4 mg/dL (0.0-1.0); Blood Urea Nitrogen 43 mg/dL (9-16); C Reactive Protein 22.43 mg/dL (< or = 0.50); Carbon Dioxide 18 mmol/L (22-29); Chloride 112 mmol/L (96-108); Creatinine Clr Calc Pharmacy 19.5; Estimated Glomerular Filt Rate 23; Glucose Random 94 mg/dL (60-115); Lipase 26 U/L (8-78); Magnesium 2.1 mg/dL (1.6-2.6); Potassium 4.5 mmol/L (3.3-5.1); Sodium 141 mmol/L (135-145); Total Protein 5.7 g/dL (6.5-8.0)
[2023-12-04 14:25] LABS: B Type Natriuretic Peptide 60 pg/mL (<100)
--- NOTE | 2023-12-04 14:53 | PC.NURSE ---
bladder scan shows 72ml. unable to void before scan
--- NOTE | 2023-12-04 15:07 | PC.NURSE ---
pt changed and cleaned. stool brown, leaking blood and some small clots from penis. MD notified.
[2023-12-04 15:44] LABS: OBS Int Ctl Valid YES; OBS1 POSITIVE (NEGATIVE)
[2023-12-04 15:58] LABS: Reflex Lactate? Lactic Acid Added
[2023-12-04] MEDS: Lidocaine HCl 2 % Urojet 10 ML JEL.PF.APP TOPICAL (16:21)
[2023-12-04 16:46] LABS: Appearance Urine Turbid; Color Urine RED; Glucose Urine UA Negative (Negative); Leukocyte Esterase Urine Moderate (2+) (Negative); Nitrite Urine Positive (Negative); PH 7.5 (5.0-9.0); UMIC TRIGGER UACC YES; Urine Blood Large (3+) (Negative); Urine Ketones Trace mg/dL (Negative); Urine Protein 300 (3+) mg/dL (Neg-Trace)
[2023-12-04 17:01] LABS: Hematocrit 30.8 % (42.0-52.0); Hemoglobin 9.3 g/dl (14.0-18.0); Mean Corpuscular HGB Conc 30.2 g/dl (31.0-36.0); Mean Corpuscular Hemoglobin 28.4 pg (27.0-33.0); Mean Corpuscular Volume 93.9 fL (80.0-98.0); Mean Platelet Volume 8.7 fL (9.4-12.4); Platelet Count 236 X10*3/uL (160-400); Red Blood Count 3.28 X10*6/uL (4.60-5.80); Red Cell Distribution Width 14.6 % (11.0-16.0); White Blood Count 12.9 X10*3/uL (4.8-10.8)
[2023-12-04 17:10] LABS: ~Lactic Acid-LAB USE ONLY 3.6 mmol/L (0.5-2.0)
[2023-12-04 17:19] LABS: RBC Urine >20 /HPF (0-2); UACC Culture Trigger YES; WBC Urine 21-50 /HPF (0-5)
[2023-12-04 17:20] LABS: Bacteria Urine 4+ (None Seen); Hyaline Casts Urine 0-2 /LPF (0-2); Squamous Epithelial Cell Urine 0-2 /HPF (0-2)
--- NOTE | 2023-12-04 17:28 | PM.IMHP ---
History of Present Illness Date of Service: 12/04/23 Chief Complaint: Abdominal pain 73-year-old gentleman with past medical history of prostate cancer status post prostatectomy and radiation therapy complicated by radiation proctitis, CAD s/p PCI in 2015, carotid artery stenosis s/p bilateral carotid stenting, hx of cerebral hemorrhage, epilepsy, HLD, HTN, restless leg syndrome, and anxiety who presents to the ED due to symptoms of abdominal pain that started last evening felt a lump right lower quadrant that disappeared this morning ,but overnight patient continued to have multiple episodes of brown muddy stools, of note patient has history of chronic diarrhea he moves up to 6-8 bowel movements daily and has no control, uses briefs, he noticed blood in the briefs, was unable to urinate, passed blood clots, this morning he felt weak, tired, he chronically feels cold, denied fevers, vomited x1, he denies chest pain, no palpitations, no shortness a breath, denies back pain, in the emergency room he was noted to have brown stools not mixed with blood, but noted to have david blood from meatus and clots ,Sesay catheter was placed and noted to have david hematuria ,CBI initiated at present continued to have punch colored urine, blood work showed MARKUS, anemia , lactic acidosis, leukocytosis on arrival noted to have low blood pressure, patient treated with IV Zosyn, IV fluids and now being admitted to [facility] with a diagnosis of severe sepsis likely due to acute pyelonephritis. Review of Systems Review of Systems: Painless, nonbloody diarrhea Chronic Incontinence of stool and urine Denies shortness of breath , chronic cough at baseline Denies fever, chills, no dizziness Denies chest pain/pressure, palpitations Denies headache, acute vision changes Skin no rash Musculoskeletal no pain All other system reviewed and are negative [facility] Medical History Coronary artery disease Radiation proctitis Abnormal stress test Unstable angina Chest pain Elevated troponin I level Multiple falls Positive colorectal cancer screening using Cologuard test Anal discharge Depression Anxiety Prostate cancer Restless legs syndrome Epilepsy 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 Degenerative disc disease, cervical Impaired fasting glucose Pure hypercholesterolemia Bilateral carotid artery stenosis Benign essential hypertension Family History Father Cancer Mother Chronic mental illness Son In good health Daughter In good health Surgical History Hx of colonoscopy History of common carotid artery stent placement H/O radical prostatectomy History of inguinal hernia repair Social History Household Members: Children Housing: House Do you presently have visiting nurse or other home services: No Alcohol intake: never Patient Tobacco Use Status: Former Tobacco user Tobacco use type: Cigarette Smoked in Last 30 Days: No e-Cigarette/Vaping Use: Never Used Second Hand Smoke Exposure: No Use of substances other than those prescribed or required for medical reasons: Yes Substance Use Type: Marijuana Substance Use Frequency: Daily Last Used Substance: Hours (ago) Currently Displaying Signs/Symptoms of Drug Intoxication Withdrawal: No Any prior treatment program specific to substance use: No Have you been hit, kicked, punched, or otherwise hurt by someone within the past year? If so, by whom?: No Do you feel safe in your current relationship?: No Current Relationship Is there a partner from a previous relationship who is making you feel unsafe now?: No Are you made to feel afraid or neglected: No [employer] Healthcare Practices: Shinto Advance Directives: Yes Advance Directives on File: Yes Advance Directives Date on File: 12/08/22 Do you have a plan to hurt others: No Plan Recently lost weight without trying: No How much weight loss: Not applicable Eating poorly because of decreased appetite: No Nutrition screen score: 0 Nutrition Risks: No Nutritional Risk Poor oral hygiene: No service: No Current occupational status: retired Cognitive needs: No Hearing needs: No Vision needs: Yes Meds Allergies Allergy/AdvReac Type Severity Reaction Status Date / Time zolpidem AdvReac Unknown sleepwalkin Verified 12/04/23 12:03 g Active Medications: Current Medications Acetaminophen (Acetaminophen 325 Mg Tablet) 650 mg PO Q6H PRN PRN Reason: Pain, Mild (Pain Scale 1-3), fever or headache Benzonatate (Benzonatate 100 Mg Capsule) 100 mg PO TID PRN PRN Reason: Cough Calcium Carbonate (Calcium Carbonate 750 Mg Tab.Chew) 750 mg PO Q4H PRN PRN Reason: Heartburn Sodium Chloride (Ns) 1,000 mls @ 100 mls/hr IVCONT .Q10H [facility] Magnesium Hydroxide (Milk Of Magnesia 30 Ml Oral.Susp) 30 ml PO DAILY PRN PRN Reason: Constipation Melatonin (Melatonin 3 Mg Tablet) 6 mg PO BEDTIME PRN PRN Reason: Insomnia Ondansetron HCl (Ondansetron Hcl 4 Mg/2 Ml Vial) 4 mg IVPUSH Q8H PRN PRN Reason: Nausea and Vomiting Sodium Chloride (0.9 % Sodium Chloride Flush 3 Ml Syringe) 3 ml IVFLUSH QSHIFT [facility] Home Medications ?Medication ?Instructions ?Recorded ?Confirmed ?Last Taken ?Type cholecalciferol (vitamin D3) 25 25 mcg PO DAILY 12/01/22 12/04/23 12/02/23 History mcg (1,000 unit) tablet cyanocobalamin (vitamin B-12) 1,000 mcg PO DAILY 12/01/22 12/04/23 12/02/23 History 1,000 mcg tablet [id number] 300 mcg-K 60 1 tab PO DAILY 12/01/22 12/04/23 12/02/23 History mcg-lycop 600 mcg-lutein 300 mcg tablet (Centrum Silver Men) aspirin 81 mg tablet,delayed 81 mg PO DAILY 02/19/23 12/04/23 12/02/23 History release (Adult Low Dose Aspirin) paroxetine HCl 30 mg tablet 60 mg PO BEDTIME 07/28/23 12/04/23 12/02/23 History lisinopril 20 mg tablet 20 mg PO DAILY 12/04/23 12/04/23 12/02/23 History Physical Exam Vital Signs and Narrative: Vital Signs: Last Vital Signs Temp 98.8 F 12/04/23 16:58 Pulse 86 12/04/23 16:58 Resp 18 12/04/23 16:58 BP 106/59 L 12/04/23 16:58 Pulse Ox 97 12/04/23 16:58 O2 Del Method Room Air 12/04/23 16:58 BMI result Body Mass Index 16.6 Const: Other: General frail , resting comfortably in no acute distress. Neck supple no JVD. CVS regular rate rhythm, Respiratory lungs clear to auscultation, no respiratory distress, no wheeze, no rhonchi. Gastrointestinal abdomen soft, non tender, bowel sounds audible, no guarding , no rigidity. Extremities no edema. Neuro non focal , speech clear. Skin no rash Psych appropriate affect Results Labs 12/05/23 07:47 12/05/23 07:47 Labs: Laboratory Results - last 24 hr 12/04/23 12/04/23 12/04/23 13:21 13:53 13:55 MCV MCH MCHC RDW Plt Count MPV Immature Gran % (Auto) Neut % (Auto) Lymph % (Auto) [place] % (Auto) Eos % (Auto) Baso % (Auto) Lymph # (Auto) [place] # (Auto) Eos # (Auto) Baso # (Auto) Abs Immat Gran (auto) Absolute Neuts (auto) Absolute Nucleated RBC Nucleated RBC % (auto) PT INR VBG pH 7.28 L VBG pCO2 40 VBG pO2 32 VBG HCO3 19 L VBG O2 Saturation 40.0 VBG Base Excess -6.5 Anion Gap Estim Creat Clear Calc Estimated GFR Random Glucose Lactic Acid Lactic Acid F/U @ 2Hr Calcium Magnesium Total Bilirubin Direct Bilirubin AST ALT Alkaline Phosphatase Troponin I High Sens C-Reactive Protein B-Natriuretic Peptide Total Protein Albumin Lipase Urine Color Urine Appearance Urine pH Ur Specific [place] Urine Protein Urine Glucose (UA) Urine Ketones Urine Blood Urine Nitrite Ur Leukocyte Esterase Urine RBC Urine WBC Ur Squamous Epith Cells Urine Bacteria Hyaline Casts Stool Occult Blood Influenza Type A (PCR) NEGATIVE Influenza Type B (PCR) NEGATIVE RSV RNA Qual (PCR) NEGATIVE SARS-CoV-2 RNA (RT-PCR) NEGATIVE Blood Type B Positive Antibody Screen NEGATIVE 12/04/23 12/04/23 12/04/23 13:56 15:21 16:21 MCV 89.7 MCH 28.6 MCHC 31.9 RDW 14.6 Plt Count 246 MPV 8.7 L Immature Gran % (Auto) 0.3 Neut % (Auto) 82.1 H Lymph % (Auto) 9.7 L [place] % (Auto) 6.6 Eos % (Auto) 1.0 Baso % (Auto) 0.3 Lymph # (Auto) 1.3 [place] # (Auto) 0.9 Eos # (Auto) 0.1 Baso # (Auto) 0.0 Abs Immat Gran (auto) 0.04 H Absolute Neuts (auto) 11.3 H Absolute Nucleated RBC 0.000 Nucleated RBC % (auto) 0.0 PT 13.4 H D INR 1.1 VBG pH VBG pCO2 VBG pO2 VBG HCO3 VBG O2 Saturation VBG Base Excess Anion Gap 16 Estim Creat Clear Calc 19.5 Estimated GFR 23 Random Glucose 94 Lactic Acid 2.2 H* Lactic Acid F/U @ 2Hr Calcium 8.0 L D Magnesium 2.1 Total Bilirubin 0.4 Direct Bilirubin 0.2 AST 11 ALT 7 Alkaline Phosphatase 99 Troponin I High Sens 9.0 C-Reactive Protein 22.43 H B-Natriuretic Peptide 60 Total Protein 5.7 L Albumin 3.1 L Lipase 26 Urine Color RED Urine Appearance Turbid Urine pH 7.5 Ur Specific [place] 1.020 Urine Protein 300 (3+) H Urine Glucose (UA) Negative Urine Ketones Trace Urine Blood Large (3+) H Urine Nitrite Positive H Ur Leukocyte Esterase Moderate (2+) H Urine RBC >20 H Urine WBC 21-50 Ur Squamous Epith Cells 0-2 Urine Bacteria 4+ Hyaline Casts 0-2 Stool Occult Blood POSITIVE Influenza Type A (PCR) Influenza Type B (PCR) RSV RNA Qual (PCR) SARS-CoV-2 RNA (RT-PCR) Blood Type Antibody Screen 12/04/23 16:38 MCV 93.9 MCH 28.4 MCHC 30.2 L RDW 14.6 Plt Count 236 MPV 8.7 L Immature Gran % (Auto) Neut % (Auto) Lymph % (Auto) [place] % (Auto) Eos % (Auto) Baso % (Auto) Lymph # (Auto) [place] # (Auto) Eos # (Auto) Baso # (Auto) Abs Immat Gran (auto) Absolute Neuts (auto) Absolute Nucleated RBC 0.000 Nucleated RBC % (auto) 0.0 PT INR VBG pH VBG pCO2 VBG pO2 VBG HCO3 VBG O2 Saturation VBG Base Excess Anion Gap Estim Creat Clear Calc Estimated GFR Random Glucose Lactic Acid Lactic Acid F/U @ 2Hr 3.6 H* Calcium Magnesium Total Bilirubin Direct Bilirubin AST ALT Alkaline Phosphatase Troponin I High Sens C-Reactive Protein B-Natriuretic Peptide Total Protein Albumin Lipase Urine Color Urine Appearance Urine pH Ur Specific [place] Urine Protein Urine Glucose (UA) Urine Ketones Urine Blood Urine Nitrite Ur Leukocyte Esterase Urine RBC Urine WBC Ur Squamous Epith Cells Urine Bacteria Hyaline Casts Stool Occult Blood Influenza Type A (PCR) Influenza Type B (PCR) RSV RNA Qual (PCR) SARS-CoV-2 RNA (RT-PCR) Blood Type Antibody Screen Imaging Radiologist's Impressions: Impressions Chest X-Ray 12/04/23 13:01 IMPRESSION: Mild bibasilar atelectasis. No acute pulmonary findings. Abdomen/Pelvis CT 12/04/23 15:10 IMPRESSION: 1. Generalized rectal wall thickening with surrounding fat stranding, most consistent with proctitis. 2. Blood products in the bladder anterior urethra as well as intraluminal gas in the bladder. Query recent bladder catheterization. No other causes of intraluminal hemorrhage identified. 3. Mild to moderate bilateral hydroureteronephrosis without a clear cause of obstruction, potentially related to the intraluminal blood products. 4. Small foci of gas in the left lateral soft tissues at the base of the bladder in the expected location of the prostate. Although this could be due to a contained perforation, gas is seen retrospectively on this region on the prior study as well, raising the possibility of a diverticulum or other more chronic extraluminal connection Assessment and Plan (1) Hematuria: Qualifiers: Hematuria type: gross Qualified Code(s): R31.0 - Gross hematuria Status: Acute (2) ABLA (acute blood loss anemia): Status: Acute (3) MARKUS (acute kidney injury): Status: Acute (4) Acidosis, lactic: Status: Acute Plan Pt is a 73-year-old male with a PMH significant for?prostate cancer s/p prostatectomy and radiation therapy complicated by radiation proctitis, CAD s/p PCI in 2014, carotid artery stenosis s/p bilateral carotid stenting, hx of cerebral hemorrhage, epilepsy, HLD, HTN, restless leg syndrome, and anxiety who presents to the ED for evaluation right lower lump, chills and diagnosed to have severe sepsis, MARKUS acute blood loss anemia and hematuria. Severe sepsis due to acute pyelonephritis Noted to have leukocytosis, lactic acidosis, tachycardia and MARKUS Continue IV Zosyn renally dose, follow urine and blood cultures Acute kidney injury likley prerenal , due to hypotension and obstructive ,CT abdomen and pelvis showed [id number] bilateral hydroureteronephrosis without clear cause of obstruction, potentially related to intraluminal blood products . Creatinine 2.76 at time of presentation, up from 1.37 from 10/17 cont ivf Follow BMP, consult Nephro if no improvement/uro eval Acute blood loss anemia due to hematuria follow cbc and transfuse with drop in hct < 30 Hematuria cont. CBI,follow h/hct CT abdomen and pelvis showed small foci of gas in the left lateral soft tissue at base of bladder in expected location of the prostate, gas was seen on prior study raising possibility of diverticulum or other more chronic extra luminal connection uro consult Chronic diarrhea has been incontinent of urine and stool x several months CT of abdomen and pelvis showed generalized rectal wall thickening surrounding the stool ball, with surrounding fat stranding consistent with proctitis , similar findings noted on prior imaging studies Previously seen by GI they recommended mesalamine by mouth t.i.d. and cholestyramine. But as per patient he was later instructed to stop these medications. CAD Hold aspirin, Plavix, due to hematuria HTN Hold blood pressure medications due to hypotension administration Mood disorder Continue home meds Moderate protein calorie malnutrition will add supplements Full Code DVT Prophylaxis: Mechanical device Pt will require a hospitalization of at least two nights for treatment of?MARKUS , severe sepsis, hematuria requiring CBI, IV antibiotics and IV fluids and require expert consultation Quality Stroke Does the patient have a stroke diagnosis?: No VTE Prior VTE?: No VTE Risk Level:: Medical - moderate - high VTE Device Contraindication: N/A - Device Ordered VTE Drug Contraindication: Treatment Not Indicated
--- NOTE | 2023-12-04 18:08 | PHA.MEDREC ---
Addendum entered by Yazan Buckner shar 12/04/23 18:23: med rec reviewed Original Note: Pharmacy Consult ? Medication Reconciliation Pharmacy has completed the medication reconciliation.
[2023-12-04] MEDS: 0.9 % Sodium Chloride 1,000 ML 100 ML IVCONT (18:22)
[2023-12-04 18:42] LABS: Reflex Lactate? 2 Y
--- NOTE | 2023-12-04 19:24 | PC.NURSE ---
3-way epps inserted at 1620 and bladder irrigation started. 1st bag of 3000ml instilled and 2800ml drained with some leakage around the catheter which soaked a pad under the patient. Epps repositioned and leaking stopped. Second bag of fluid now instilling
[2023-12-04 19:37] LABS: ~Lactic Acid-LAB USE ONLY 1.2 mmol/L (0.5-2.0)
--- NOTE | 2023-12-04 19:41 | PC.NURSE ---
For first 4000ml of CBI, fluid color was dark red fruit punch with some clots, now fluid is draining clear
[2023-12-04] MEDS: QUEtiapine Fumarate 100 MG TABLET PO (21:54)
[2023-12-04] MEDS: rOPINIRole HCL 1 MG TABLET 3 MG PO (21:54)
[2023-12-04] MEDS: Mirtazapine 15 MG TABLET PO (21:54)
[2023-12-04] MEDS: PARoxetine HCL 30 MG TABLET 60 MG PO (21:54)
[2023-12-04] MEDS: Piperacillin Sodium/Tazobactam 2.25 GM in 0.9 % Sodium Chloride 50 ML IV (21:54)
[2023-12-04] MEDS: ALPRAZolam 0.5 MG TABLET 1 MG PO (22:50)
[2023-12-04] MEDS: Lactated Ringers 500 ML IV (23:55)
[2023-12-05 01:00] VITALS: BP 147/68
[2023-12-05 03:33] VITALS: BP 106/66; PULSE 97; RESP 18; TEMP 36.9; O2SAT 96
[2023-12-05] MEDS: Piperacillin Sodium/Tazobactam 2.25 GM in 0.9 % Sodium Chloride 50 ML IV ×3 (06:01→17:30)
[2023-12-05] MEDS: 0.9 % Sodium Chloride 1,000 ML 100 ML IVCONT ×2 (06:02→15:53)
--- NOTE | 2023-12-05 06:26 | HO.SKINPHOTO ---
Location: Coccyx. Area cleansed. Barrier cream and mepilex applied.
--- NOTE | 2023-12-05 06:27 | PC.NURSE ---
Pt admitted from ED overnight. Patient with CBI present. Per ED RN, CBI had been leaking from insertion site often. This RN manually irrigated epps for a moderate amount of small blood clots. After irrigation, epps patent and draining. Epps required manual irrigation x5 times. Each irrigation with small blood clots present. Epps currently patent and draining clear yellow urine. No leaking present at insertion site. Epps left at moderate rate to prevent further clotting despite clear yellow urine. Oncoming RN to be made aware. Pt with no complaints of pain.
[2023-12-05 07:44] VITALS: BP 125/59; PULSE 87; RESP 20; TEMP 36.3; O2SAT 97
[2023-12-05] MEDS: Cyanocobalamin (Vitamin B-12) 1,000 MCG TABLET 1000 MCG PO (07:54)
[2023-12-05] MEDS: Cholecalciferol (Vitamin D3) 25 MCG TABLET PO (07:54)
[2023-12-05 08:10] LABS: Hematocrit 28.3 % (42.0-52.0); Hemoglobin 8.6 g/dl (14.0-18.0); Mean Corpuscular HGB Conc 30.4 g/dl (31.0-36.0); Mean Corpuscular Hemoglobin 27.7 pg (27.0-33.0); Platelet Count 216 X10*3/uL (160-400); Red Blood Count 3.11 X10*6/uL (4.60-5.80); Red Cell Distribution Width 14.6 % (11.0-16.0)
[2023-12-05 08:22] LABS: Anion Gap 14 (12-20); Blood Urea Nitrogen 35 mg/dL (9-16); Calcium 8.7 mg/dL (8.4-10.2); Carbon Dioxide 16 mmol/L (22-29); Chloride 113 mmol/L (96-108); Creatinine Clr Calc Pharmacy 27.4; Estimated Glomerular Filt Rate 33; Glucose Random 89 mg/dL (60-115); Potassium 4.4 mmol/L (3.3-5.1); Sodium 139 mmol/L (135-145)
--- NOTE | 2023-12-05 09:08 | MHC.CM.PN ---
IMM 12/05/23, Pt lives with his daughter and grandchildren, HCP is on file and confirmed, names daughter, Taty. Pt. is independent with personal care, has someone that comes in once a week to clean, he is not sure from where, possibly [facility]. He did have [facility], but cancelled them due to not liking the food. For DME he has grab bars in bathroom, and uses a walking stick when outdoors. Family can transport home at DC. DCP: home with services. CM to follow and assist with DC plan.
[2023-12-05 11:07] VITALS: BP 106/56; PULSE 92; RESP 20; TEMP 36.2; O2SAT 96
--- NOTE | 2023-12-05 11:42 | HO.PM.IMPN ---
Subjective Subjective Date of Service: 12/05/23 Interval History: Being followed for severe sepsis due to acute pyelo/hematuria/acute blood loss anemia and MARKUS. Patient offers no acute complaints denies abdominal pain, no diarrhea, urine light pink color, no acute events overnight. Review of Systems All other system reviewed and are negative. Physical Exam Vital Signs: Vital Signs: Last Vital Signs Temp 97.1 F 12/05/23 11:07 Pulse 92 12/05/23 11:07 Resp 20 12/05/23 11:07 BP 106/56 L 12/05/23 11:07 Pulse Ox 96 12/05/23 11:07 O2 Del Method Room Air 12/05/23 11:07 BMI result Body Mass Index 16.8 Const: Other: General frail , resting comfortably in no acute distress. Neck supple no JVD. CVS regular rate rhythm, Respiratory lungs clear to auscultation, no respiratory distress, no wheeze, no rhonchi. Gastrointestinal abdomen soft, non tender, bowel sounds audible, no guarding , no rigidity. Extremities no edema. Neuro non focal , speech clear. Skin no rash Psych appropriate affect Objective Data Active Medications Acetaminophen (Acetaminophen 325 Mg Tablet) 650 mg PO Q6H PRN PRN Reason: Pain, Mild (Pain Scale 1-3), fever or headache Alprazolam (Alprazolam 0.5 Mg Tablet) 1 mg PO BID PRN PRN Reason: anxiety Last Admin: 12/04/23 22:50 Dose: 1 mg Documented By: GIULIANA Benzonatate (Benzonatate 100 Mg Capsule) 100 mg PO TID PRN PRN Reason: Cough Calcium Carbonate (Calcium Carbonate 750 Mg Tab.Chew) 750 mg PO Q4H PRN PRN Reason: Heartburn Cyanocobalamin (Cyanocobalamin (Vitamin B-12) 1,000 Mcg Tablet) 1,000 mcg PO DAILY [facility] Last Admin: 12/05/23 07:54 Dose: 1,000 mcg Documented By: RABIA Sodium Chloride (Ns) 1,000 mls @ 100 mls/hr IVCONT .Q10H [facility] Last Admin: 12/05/23 06:02 Dose: 100 mls/hr Documented By: GIULIANA Piperacillin Sod/Tazobactam (Sod 2.25 gm/ Sodium Chloride) 50 mls @ 100 mls/hr IV Q6H [facility] Magnesium Hydroxide (Milk Of Magnesia 30 Ml Oral.Susp) 30 ml PO DAILY PRN PRN Reason: Constipation Melatonin (Melatonin 3 Mg Tablet) 6 mg PO BEDTIME PRN PRN Reason: Insomnia Mirtazapine (Mirtazapine 15 Mg Tablet) 15 mg PO BEDTIME [facility] Last Admin: 12/04/23 21:54 Dose: 15 mg Documented By: GIULIANA Ondansetron HCl (Ondansetron Hcl 4 Mg/2 Ml Vial) 4 mg IVPUSH Q8H PRN PRN Reason: Nausea and Vomiting Paroxetine HCl (Paroxetine Hcl 30 Mg Tablet) 60 mg PO BEDTIME [facility] Last Admin: 12/04/23 21:54 Dose: 60 mg Documented By: GIULIANA Quetiapine Fumarate (Quetiapine Fumarate 100 Mg Tablet) 100 mg PO BEDTIME [facility] Last Admin: 12/04/23 21:54 Dose: 100 mg Documented By: GIULIANA Ropinirole HCl (Ropinirole Hcl 1 Mg Tablet) 3 mg PO BEDTIME [facility] Last Admin: 12/04/23 21:54 Dose: 3 mg Documented By: GIULIANA Sodium Chloride (0.9 % Sodium Chloride Flush 3 Ml Syringe) 3 ml IVFLUSH QSHIFT [facility] Last Admin: 12/05/23 07:54 Dose: Not Given Documented By: RABIA Non-Admin Reason: IV Running Vitamin D (Cholecalciferol (Vitamin D3) 25 Mcg Tablet) 25 mcg PO DAILY [facility] Last Admin: 12/05/23 07:54 Dose: 25 mcg Documented By: RABIA Labs 12/05/23 07:47 12/05/23 07:47 Labs: Laboratory Results - last 24 hr 12/04/23 12/04/23 12/04/23 13:21 13:53 13:55 MCV MCH MCHC RDW Plt Count MPV Immature Gran % (Auto) Neut % (Auto) Lymph % (Auto) [place] % (Auto) Eos % (Auto) Baso % (Auto) Lymph # (Auto) [place] # (Auto) Eos # (Auto) Baso # (Auto) Abs Immat Gran (auto) Absolute Neuts (auto) Absolute Nucleated RBC Nucleated RBC % (auto) PT INR VBG pH 7.28 L VBG pCO2 40 VBG pO2 32 VBG HCO3 19 L VBG O2 Saturation 40.0 VBG Base Excess -6.5 Anion Gap Estim Creat Clear Calc Estimated GFR Random Glucose Lactic Acid Lactic Acid F/U @ 2Hr Lactic Acid F/U @ 4Hr Calcium Magnesium Total Bilirubin Direct Bilirubin AST ALT Alkaline Phosphatase Troponin I High Sens C-Reactive Protein B-Natriuretic Peptide Total Protein Albumin Lipase Urine Color Urine Appearance Urine pH Ur Specific [place] Urine Protein Urine Glucose (UA) Urine Ketones Urine Blood Urine Nitrite Ur Leukocyte Esterase Urine RBC Urine WBC Ur Squamous Epith Cells Urine Bacteria Hyaline Casts Stool Occult Blood Influenza Type A (PCR) NEGATIVE Influenza Type B (PCR) NEGATIVE RSV RNA Qual (PCR) NEGATIVE SARS-CoV-2 RNA (RT-PCR) NEGATIVE Blood Type B Positive Antibody Screen NEGATIVE 12/04/23 12/04/23 12/04/23 13:56 15:21 16:21 MCV 89.7 MCH 28.6 MCHC 31.9 RDW 14.6 Plt Count 246 MPV 8.7 L Immature Gran % (Auto) 0.3 Neut % (Auto) 82.1 H Lymph % (Auto) 9.7 L [place] % (Auto) 6.6 Eos % (Auto) 1.0 Baso % (Auto) 0.3 Lymph # (Auto) 1.3 [place] # (Auto) 0.9 Eos # (Auto) 0.1 Baso # (Auto) 0.0 Abs Immat Gran (auto) 0.04 H Absolute Neuts (auto) 11.3 H Absolute Nucleated RBC 0.000 Nucleated RBC % (auto) 0.0 PT 13.4 H D INR 1.1 VBG pH VBG pCO2 VBG pO2 VBG HCO3 VBG O2 Saturation VBG Base Excess Anion Gap 16 Estim Creat Clear Calc 19.5 Estimated GFR 23 Random Glucose 94 Lactic Acid 2.2 H* Lactic Acid F/U @ 2Hr Lactic Acid F/U @ 4Hr Calcium 8.0 L D Magnesium 2.1 Total Bilirubin 0.4 Direct Bilirubin 0.2 AST 11 ALT 7 Alkaline Phosphatase 99 Troponin I High Sens 9.0 C-Reactive Protein 22.43 H B-Natriuretic Peptide 60 Total Protein 5.7 L Albumin 3.1 L Lipase 26 Urine Color RED Urine Appearance Turbid Urine pH 7.5 Ur Specific [place] 1.020 Urine Protein 300 (3+) H Urine Glucose (UA) Negative Urine Ketones Trace Urine Blood Large (3+) H Urine Nitrite Positive H Ur Leukocyte Esterase Moderate (2+) H Urine RBC >20 H Urine WBC 21-50 Ur Squamous Epith Cells 0-2 Urine Bacteria 4+ Hyaline Casts 0-2 Stool Occult Blood POSITIVE Influenza Type A (PCR) Influenza Type B (PCR) RSV RNA Qual (PCR) SARS-CoV-2 RNA (RT-PCR) Blood Type Antibody Screen 12/04/23 12/04/23 12/05/23 16:38 19:10 07:47 MCV 93.9 91.0 MCH 28.4 27.7 MCHC 30.2 L 30.4 L RDW 14.6 14.6 Plt Count 236 216 MPV 8.7 L 9.0 L Immature Gran % (Auto) Neut % (Auto) Lymph % (Auto) [place] % (Auto) Eos % (Auto) Baso % (Auto) Lymph # (Auto) [place] # (Auto) Eos # (Auto) Baso # (Auto) Abs Immat Gran (auto) Absolute Neuts (auto) Absolute Nucleated RBC 0.000 0.000 Nucleated RBC % (auto) 0.0 0.0 PT INR VBG pH VBG pCO2 VBG pO2 VBG HCO3 VBG O2 Saturation VBG Base Excess Anion Gap 14 Estim Creat Clear Calc 27.4 Estimated GFR 33 Random Glucose 89 Lactic Acid Lactic Acid F/U @ 2Hr 3.6 H* Lactic Acid F/U @ 4Hr 1.2 Calcium 8.7 D Magnesium Total Bilirubin Direct Bilirubin AST ALT Alkaline Phosphatase Troponin I High Sens C-Reactive Protein B-Natriuretic Peptide Total Protein Albumin Lipase Urine Color Urine Appearance Urine pH Ur Specific [place] Urine Protein Urine Glucose (UA) Urine Ketones Urine Blood Urine Nitrite Ur Leukocyte Esterase Urine RBC Urine WBC Ur Squamous Epith Cells Urine Bacteria Hyaline Casts Stool Occult Blood Influenza Type A (PCR) Influenza Type B (PCR) RSV RNA Qual (PCR) SARS-CoV-2 RNA (RT-PCR) Blood Type Antibody Screen Assessment and Plan (1) Hematuria: Status: Acute (2) ABLA (acute blood loss anemia): Status: Acute (3) MARKUS (acute kidney injury): Status: Acute Plan 73-year-old male with a PMH significant for?prostate cancer s/p prostatectomy and radiation therapy complicated by radiation proctitis, CAD s/p PCI in 2014, carotid artery stenosis s/p bilateral carotid stenting, hx of cerebral hemorrhage, epilepsy, HLD, HTN, restless leg syndrome, and anxiety who presents to the ED for evaluation right lower lump, chills and diagnosed to have severe sepsis, MARKUS acute blood loss anemia and hematuria. Severe sepsis due to acute pyelonephritis Noted to have leukocytosis, lactic acidosis, tachycardia and MARKUS Continue IV Zosyn renally dose, urine and blood cultures pending, WBC normalized Acute kidney injury metabolic acidosis likley prerenal , due to hypotension and obstructive uropathy ,CT abdomen and pelvis showed [id number] bilateral hydroureteronephrosis without clear cause of obstruction, potentially related to intraluminal blood products . Creatinine 2.76 on admission down to 1.99 (last creat 1.37 from 10/17) cont ivf, add soda bicarb Follow BMP, consult Nephro if no improvement/uro eval Acute blood loss anemia due to hematuria follow cbc and transfuse with drop in hb < 8 Hematuria cont. CBI, repeat hematocrit above transfusion threshold, follow h/hct CT abdomen and pelvis showed small foci of gas in the left lateral soft tissue at base of bladder in expected location of the prostate, gas was seen on prior study raising possibility of diverticulum or other more chronic extra luminal connection uro consult Chronic diarrhea No recurrent diarrhea has been incontinent of urine and stool x several months CT of abdomen and pelvis showed generalized rectal wall thickening surrounding the stool ball, with surrounding fat stranding consistent with proctitis , similar findings noted on prior imaging studies Previously seen by GI they recommended mesalamine by mouth t.i.d. and cholestyramine. But as per patient he was later instructed to stop these medications. CAD Hold aspirin, Plavix, due to hematuria HTN Hold blood pressure medications due to persistent soft blood pressures Mood disorder Continue home meds Moderate protein calorie malnutrition add supplements Full Code DVT Prophylaxis: Mechanical device Pt will require continued inpatient hospitalization for treatment of?MARKUS , severe sepsis, hematuria requiring CBI, IV antibiotics and IV fluids and require expert consultation Quality Stroke Does the patient have a stroke diagnosis?: No VTE Prior VTE?: No VTE Risk Level:: Medical - moderate - high VTE Device Contraindication: N/A - Device Ordered VTE Drug Contraindication: Treatment Not Indicated
[2023-12-05] MEDS: Sodium Bicarbonate 650 MG TABLET PO ×2 (12:43→20:47)
--- NOTE | 2023-12-05 14:04 | PM.UROCN ---
History of Present Illness Consult details Consult date: 12/05/23 Narrative: 73-year-old gentleman with past medical history of prostate cancer status post prostatectomy and radiation therapy complicated by radiation proctitis, CAD s/p PCI in 2015, carotid artery stenosis s/p bilateral carotid stenting, hx of cerebral hemorrhage, epilepsy, HLD, HTN, restless leg syndrome, and anxiety who presents to the ED due to symptoms of abdominal pain, changes in stool and difficulty voiding, hematuria. CBI in place. Review of Systems Review of Systems: Yes all other systems are reviewed and are negative Constitutional: Constitutional: Reports no additional constitutional complaints Eyes: Eyes: Reports no additional eye complaints ENT: Reports system reviewed and no additional complaints, except as documented Cardiovascular: Cardiovascular: Reports no additional cardiovascular complaints Respiratory: Respiratory: Reports no additional respiratory complaints Gastrointestinal: Gastrointestinal: Reports no additional gastrointestinal complaints Genitourinary: Genitourinary: Reports as per HPI Musculoskeletal: Musculoskeletal: Reports no additional musculoskeletal complaints Integumentary/Breasts: Skin/Breast: Reports system reviewed and no additional complaints, except as docu Neurologic: Reports system reviewed and no additional complaints, except as documented Psychiatric: Psychiatric: Reports no additional psychiatric complaints Endocrine: Endocrine: Reports no additional endocrine complaints Hematologic/Lymphatic: Hematologic/Lymphatic: Reports no additional hematologic/lymphatic complaints Allergic/Immunologic: Allergic/Immunologic: Reports no additional allergic/immunologic complaints [facility] Past Medical History Medical History Coronary artery disease Radiation proctitis Abnormal stress test Unstable angina Chest pain Elevated troponin I level Multiple falls Positive colorectal cancer screening using Cologuard test Anal discharge Depression Anxiety Prostate cancer Restless legs syndrome Epilepsy 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 Degenerative disc disease, cervical Impaired fasting glucose Pure hypercholesterolemia Bilateral carotid artery stenosis Benign essential hypertension Family History Family History Father Cancer Mother Chronic mental illness Son In good health Daughter In good health Surgical History Surgical History Hx of colonoscopy History of common carotid artery stent placement H/O radical prostatectomy History of inguinal hernia repair Social History Social History Household Members: Children Housing: House Do you presently have visiting nurse or other home services: No Alcohol intake: never Patient Tobacco Use Status: Former Tobacco user Tobacco use type: Cigarette Smoked in Last 30 Days: No e-Cigarette/Vaping Use: Never Used Second Hand Smoke Exposure: No Use of substances other than those prescribed or required for medical reasons: Yes Substance Use Type: Marijuana Substance Use Frequency: Daily Last Used Substance: Hours (ago) Currently Displaying Signs/Symptoms of Drug Intoxication Withdrawal: No Any prior treatment program specific to substance use: No Have you been hit, kicked, punched, or otherwise hurt by someone within the past year? If so, by whom?: No Do you feel safe in your current relationship?: No Current Relationship Is there a partner from a previous relationship who is making you feel unsafe now?: No Are you made to feel afraid or neglected: No Church Healthcare Practices: Muslim Advance Directives: Yes Advance Directives on File: Yes Advance Directives Date on File: 12/08/22 Do you have a plan to hurt others: No Plan Recently lost weight without trying: No How much weight loss: Not applicable Eating poorly because of decreased appetite: No Nutrition screen score: 0 Nutrition Risks: No Nutritional Risk Poor oral hygiene: No service: No Current occupational status: retired Cognitive needs: No Hearing needs: No Vision needs: Yes Meds Allergies Allergy/AdvReac Type Severity Reaction Status Date / Time zolpidem AdvReac Unknown sleepwalkin Verified 12/04/23 12:03 g Active Medications: Current Medications Acetaminophen (Acetaminophen 325 Mg Tablet) 650 mg PO Q6H PRN PRN Reason: Pain, Mild (Pain Scale 1-3), fever or headache Alprazolam (Alprazolam 0.5 Mg Tablet) 1 mg PO BID PRN PRN Reason: anxiety Last Admin: 12/04/23 22:50 Dose: 1 mg Benzonatate (Benzonatate 100 Mg Capsule) 100 mg PO TID PRN PRN Reason: Cough Calcium Carbonate (Calcium Carbonate 750 Mg Tab.Chew) 750 mg PO Q4H PRN PRN Reason: Heartburn Cyanocobalamin (Cyanocobalamin (Vitamin B-12) 1,000 Mcg Tablet) 1,000 mcg PO DAILY [facility] Last Admin: 12/05/23 07:54 Dose: 1,000 mcg Sodium Chloride (Ns) 1,000 mls @ 100 mls/hr IVCONT .Q10H [facility] Last Admin: 12/05/23 06:02 Dose: 100 mls/hr Piperacillin Sod/Tazobactam (Sod 2.25 gm/ Sodium Chloride) 50 mls @ 100 mls/hr IV Q6H [facility] Last Infusion: 12/05/23 13:25 Dose: Infused Magnesium Hydroxide (Milk Of Magnesia 30 Ml Oral.Susp) 30 ml PO DAILY PRN PRN Reason: Constipation Melatonin (Melatonin 3 Mg Tablet) 6 mg PO BEDTIME PRN PRN Reason: Insomnia Mirtazapine (Mirtazapine 15 Mg Tablet) 15 mg PO BEDTIME [facility] Last Admin: 12/04/23 21:54 Dose: 15 mg Ondansetron HCl (Ondansetron Hcl 4 Mg/2 Ml Vial) 4 mg IVPUSH Q8H PRN PRN Reason: Nausea and Vomiting Paroxetine HCl (Paroxetine Hcl 30 Mg Tablet) 60 mg PO BEDTIME [facility] Last Admin: 12/04/23 21:54 Dose: 60 mg Quetiapine Fumarate (Quetiapine Fumarate 100 Mg Tablet) 100 mg PO BEDTIME [facility] Last Admin: 12/04/23 21:54 Dose: 100 mg Ropinirole HCl (Ropinirole Hcl 1 Mg Tablet) 3 mg PO BEDTIME [facility] Last Admin: 12/04/23 21:54 Dose: 3 mg Sodium Bicarbonate (Sodium Bicarbonate 650 Mg Tablet) 650 mg PO BID [facility] Last Admin: 12/05/23 12:43 Dose: 650 mg Sodium Chloride (0.9 % Sodium Chloride Flush 3 Ml Syringe) 3 ml IVFLUSH QSHIFT [facility] Last Admin: 12/05/23 07:54 Dose: Not Given Vitamin D (Cholecalciferol (Vitamin D3) 25 Mcg Tablet) 25 mcg PO DAILY [facility] Last Admin: 12/05/23 07:54 Dose: 25 mcg Home Medications ?Medication ?Instructions ?Recorded ?Confirmed ?Last Taken ?Type cholecalciferol (vitamin D3) 25 25 mcg PO DAILY 12/01/22 12/04/23 12/02/23 History mcg (1,000 unit) tablet cyanocobalamin (vitamin B-12) 1,000 mcg PO DAILY 12/01/22 12/04/23 12/02/23 History 1,000 mcg tablet [id number] 300 mcg-K 60 1 tab PO DAILY 12/01/22 12/04/23 12/02/23 History mcg-lycop 600 mcg-lutein 300 mcg tablet (Centrum Silver Men) aspirin 81 mg tablet,delayed 81 mg PO DAILY 02/19/23 12/04/23 12/02/23 History release (Adult Low Dose Aspirin) paroxetine HCl 30 mg tablet 60 mg PO BEDTIME 07/28/23 12/04/23 12/02/23 History lisinopril 20 mg tablet 20 mg PO DAILY 12/04/23 12/04/23 12/02/23 History Physical Exam Vital Signs: Vital Signs: Last Vital Signs Temp 97.1 F 12/05/23 11:07 Pulse 92 12/05/23 11:07 Resp 20 12/05/23 11:07 BP 106/56 L 12/05/23 11:07 Pulse Ox 96 12/05/23 11:07 O2 Del Method Room Air 12/05/23 11:07 BMI result Body Mass Index 16.8 Const: General: healthy appearing, no acute distress and well developed Orientation/consciousness: patient oriented x3 HEENT: Head: Yes normocephalic and Yes atraumatic Eyes: Conjunctivae: conjunctivae normal Neck: Neck: Yes normal visual inspection Chest: Chest palpation & inspection: normal inspection of the chest Resp: Effort & Inspection: normal respiratory effort Cardio: Rate: regular rate GI: Inspection: Yes normal to inspection Palpation (GI): Soft to palpation : Other: CBI - running urine pink tinged Penis: normal penis Neuro: General: patient oriented x3 Psych: Appearance: grossly normal Affect: normal affect Results Labs 12/05/23 07:47 12/05/23 07:47 Labs: Abnormal lab results 12/04/23 12/04/23 12/04/23 Range/Units 13:56 16:21 16:38 WBC 13.7 H 12.9 H (4.8-10.8) X10*3/uL RBC 3.01 L D 3.28 L (4.60-5.80) X10*6/uL Hgb 8.6 L D 9.3 L (14.0-18.0) g/dl Hct 27.0 L D 30.8 L (42.0-52.0) % MCHC 30.2 L (31.0-36.0) g/dl MPV 8.7 L 8.7 L (9.4-12.4) fL Neut % (Auto) 82.1 H (45-73) % Lymph % (Auto) 9.7 L (20-40) % Abs Immat Gran (auto) 0.04 H (0.00-0.03) X10*3/uL Absolute Neuts (auto) 11.3 H (2.0-8.3) x10*3/uL PT 13.4 H D (11.1-13.3) SEC Chloride 112 H (96-108) mmol/L Carbon Dioxide 18 L (22-29) mmol/L BUN 43 H (9-16) mg/dL Creatinine 2.76 H (0.5-1.4) mg/dL Lactic Acid 2.2 H* (0.5-2.0) mmol/L Lactic Acid F/U @ 2Hr 3.6 H* (0.5-2.0) mmol/L Calcium 8.0 L D (8.4-10.2) mg/dL C-Reactive Protein 22.43 H (< or = 0.50) mg/dL Total Protein 5.7 L (6.5-8.0) g/dL Albumin 3.1 L (3.5-5.0) g/dL Urine Protein 300 (3+) H (Neg-Trace) mg/dL Urine Blood Large (3+) H (Negative) Urine Nitrite Positive H (Negative) Ur Leukocyte Esterase Moderate (2+) H (Negative) Urine RBC >20 H (0-2) /HPF 12/05/23 Range/Units 07:47 WBC (4.8-10.8) X10*3/uL RBC 3.11 L (4.60-5.80) X10*6/uL Hgb 8.6 L (14.0-18.0) g/dl Hct 28.3 L (42.0-52.0) % MCHC 30.4 L (31.0-36.0) g/dl MPV 9.0 L (9.4-12.4) fL Neut % (Auto) (45-73) % Lymph % (Auto) (20-40) % Abs Immat Gran (auto) (0.00-0.03) X10*3/uL Absolute Neuts (auto) (2.0-8.3) x10*3/uL PT (11.1-13.3) SEC Chloride 113 H (96-108) mmol/L Carbon Dioxide 16 L (22-29) mmol/L BUN 35 H (9-16) mg/dL Creatinine 1.99 H (0.5-1.4) mg/dL Lactic Acid (0.5-2.0) mmol/L Lactic Acid F/U @ 2Hr (0.5-2.0) mmol/L Calcium (8.4-10.2) mg/dL C-Reactive Protein (< or = 0.50) mg/dL Total Protein (6.5-8.0) g/dL Albumin (3.5-5.0) g/dL Urine Protein (Neg-Trace) mg/dL Urine Blood (Negative) Urine Nitrite (Negative) Ur Leukocyte Esterase (Negative) Urine RBC (0-2) /HPF Short CBC 12/04/23 12/04/23 12/05/23 Range/Units 13:56 16:38 07:47 WBC 13.7 H 12.9 H 10.0 (4.8-10.8) X10*3/uL Hgb 8.6 L D 9.3 L 8.6 L (14.0-18.0) g/dl Hct 27.0 L D 30.8 L 28.3 L (42.0-52.0) % Plt Count 246 236 216 (160-400) X10*3/uL BMP 12/04/23 12/05/23 13:56 07:47 Sodium 141 139 Potassium 4.5 4.4 Chloride 112 H 113 H Carbon Dioxide 18 L 16 L BUN 43 H 35 H Creatinine 2.76 H 1.99 H Calcium 8.0 L D 8.7 D Liver Function 12/04/23 Range/Units 13:56 Total Bilirubin 0.4 (0.0-1.0) mg/dL Direct Bilirubin 0.2 (0.0-0.5) mg/dL AST 11 (5-37) U/L ALT 7 (0-40) U/L Alkaline Phosphatase 99 (39-117) U/L Albumin 3.1 L (3.5-5.0) g/dL Urine 12/04/23 Range/Units 16:21 Urine Color RED Urine Appearance Turbid Urine pH 7.5 (5.0-9.0) Ur Specific Bradford 1.020 (1.005-1.025) Urine Protein 300 (3+) H (Neg-Trace) mg/dL Urine Glucose (UA) Negative (Negative) mg/dL Imaging Abdomen CT scan report/results: report reviewed and image reviewed CT scan - pelvis: report reviewed and image reviewed Additional studies: Date of Service: 12/04/23 CT ABDOMEN AND PELVIS WITHOUT CONTRAST CLINICAL INFORMATION: Abdominal pain. Rectal bleeding. COMPARISON: 07/28/2023 TECHNIQUE: Multidetector volumetric imaging was performed from the superior aspect of the liver through the pubic symphysis. Sagittal and coronal reformatted images were obtained on the technologist's workstation. This CT examination was performed using dose optimization techniques as appropriate, variously including the following: *Automated exposure control *Adjustment of mA and/or kV according to patient size (this includes techniques or standardized protocols for targeted exams where dose is matched to indication/reason for exam; i.e. extremities or head) *Use of iterative reconstruction technique DLP: 370 mGy-cm FINDINGS: LUNG BASES: Mild dependent atelectasis. Moderate centrilobular emphysema. LIVER, GALLBLADDER, AND BILIARY TREE: The liver is normal in size, shape, and attenuation. No focal hepatic lesion or biliary ductal dilatation is present. The gallbladder is unremarkable with no evidence of radiopaque gallstones, gallbladder wall thickening, or obvious pericholecystic inflammatory changes. PANCREAS: Small foci of calcification are again seen in the pancreatic head near the ampulla of Vater. No appreciable ductal dilatation. Additional small calcification is noted in the pancreatic body near the junction with the tail. SPLEEN: Normal ADRENAL GLANDS: Unremarkable. KIDNEYS AND URETERS: Bilateral perinephric stranding is noted. Kidneys normal in size and contour without focal lesions. No obstructing calculi are identified. There is mild to moderate bilateral hydroureteronephrosis extending to the level of the bladder. BLADDER: There is a 3.2 x 6 x 3 cm focus of heterogeneous intermediate attenuation within the bladder dependently which is favored to correspond to intraluminal blood products. Air is also noted in the bladder, presumably related to catheterization. Heterogeneous blood products are also suspected within the prostatic and membranous urethra. GASTROINTESTINAL TRACT: Stomach, small bowel, and colon are normal in caliber. Moderate volume of well-formed stool in the colon. There is bowel wall thickening at the rectum surrounding the stool ball. There is mild surrounding fat stranding. No intraperitoneal free fluid. A small amount of gas is present left lateral aspect of the expected location of the prostate, similar to prior. ABDOMINAL WALL: Small fat-containing umbilical hernia. No bowel involvement. LYMPH NODES: Normal. VASCULAR: Atherosclerotic calcifications are present in the abdominal aorta and iliac arteries. No aneurysmal dilatation. PELVIC VISCERA: Prostate gland is not well seen, possibly surgically absent. As noted above, there are small foci of gas extending to the left lateral intrapelvic soft tissues from the expected location of the prostate at the base of the bladder. Heterogeneous blood products are suspected within the membranous urethra. OSSEOUS STRUCTURES: No acute osseous findings. Mild multilevel degenerative disc disease in the lumbar spine. Mild osteoarthritis in the hips. IMPRESSION: 1. Generalized rectal wall thickening with surrounding fat stranding, most consistent with proctitis. 2. Blood products in the bladder anterior urethra as well as intraluminal gas in the bladder. Query recent bladder catheterization. No other causes of intraluminal hemorrhage identified. 3. Mild to moderate bilateral hydroureteronephrosis without a clear cause of obstruction, potentially related to the intraluminal blood products. 4. Small foci of gas in the left lateral soft tissues at the base of the bladder in the expected location of the prostate. 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
[2023-12-05 16:00] VITALS: BP 113/58; PULSE 84; RESP 16; TEMP 36.6; O2SAT 97
--- NOTE | 2023-12-05 18:35 | PC.NURSE ---
Assumed care of pt at 0700. Pt has CBI running approx. 1/ open. Output red/pink tinge. This RN irrigated catheter x1 time with several small clots removed, with immediate punch red output, approx. 30-40 ml. Output quickly turned back to pink tinge. CBI has been patent and draining since, continues to be pink tinge with scant small clots/sediment. Pt denies lower abdominal/pelvic pain. MD aware of need to irrigate/output. Urology assessed pt, agrees to continue CBI. No concerns at this time.
[2023-12-05 19:37] VITALS: BP 113/56; PULSE 86; RESP 19; TEMP 36.7; O2SAT 97
[2023-12-05] MEDS: QUEtiapine Fumarate 100 MG TABLET PO (20:47)
[2023-12-05] MEDS: rOPINIRole HCL 1 MG TABLET 3 MG PO (20:47)
[2023-12-05] MEDS: PARoxetine HCL 30 MG TABLET 60 MG PO (20:47)
[2023-12-05] MEDS: ALPRAZolam 0.5 MG TABLET 1 MG PO (20:47)
[2023-12-05] MEDS: Mirtazapine 15 MG TABLET PO (20:47)
[2023-12-06] VITALS (7 sets, daily range): BP systolic 99–138; BP diastolic 58–71; PULSE 78–93; RESP 17–20; TEMP 36.1–37.2; O2SAT 91–97; BMI 16.8
[2023-12-06] MEDS: 0.9 % Sodium Chloride Flush 3 ML SYRINGE IVFLUSH (01:00)
[2023-12-06] MEDS: Piperacillin Sodium/Tazobactam 2.25 GM in 0.9 % Sodium Chloride 50 ML IV ×4 (01:03→19:35)
[2023-12-06] MEDS: 0.9 % Sodium Chloride 1,000 ML 100 ML IVCONT ×2 (01:07→11:39)
[2023-12-06 07:12] LABS: Hematocrit 26.9 % (42.0-52.0); Hemoglobin 8.4 g/dl (14.0-18.0); Mean Corpuscular HGB Conc 31.2 g/dl (31.0-36.0); Mean Corpuscular Hemoglobin 27.8 pg (27.0-33.0); Mean Corpuscular Volume 89.1 fL (80.0-98.0); Mean Platelet Volume 8.8 fL (9.4-12.4); Platelet Count 223 X10*3/uL (160-400); Red Blood Count 3.02 X10*6/uL (4.60-5.80); White Blood Count 6.8 X10*3/uL (4.8-10.8)
[2023-12-06 07:27] LABS: Anion Gap 9 (12-20); Blood Urea Nitrogen 23 mg/dL (9-16); Calcium 8.3 mg/dL (8.4-10.2); Carbon Dioxide 24 mmol/L (22-29); Chloride 113 mmol/L (96-108); Creatinine Clr Calc Pharmacy 43.7; Estimated Glomerular Filt Rate 57; Glucose Random 83 mg/dL (60-115); Potassium 3.9 mmol/L (3.3-5.1); Sodium 142 mmol/L (135-145)
[2023-12-06] MEDS: Cyanocobalamin (Vitamin B-12) 1,000 MCG TABLET 1000 MCG PO (07:56)
[2023-12-06] MEDS: Sodium Bicarbonate 650 MG TABLET PO ×2 (07:56→20:55)
[2023-12-06] MEDS: Cholecalciferol (Vitamin D3) 25 MCG TABLET PO (07:56)
--- NOTE | 2023-12-06 09:32 | MHC.CLN ---
PT IS MODERATELY MALNOURISHED PT WITH MILDLY DEPLETED SUBCUTANEOUS FAT AND MUSCLE MASS WITH 14% NONSIGNIFICANT WT LOSS X1 YEAR WITH CHRONIC DIARRHEA; PT REPORTS 6-8BM DAILY PO INTAKE 100% X 2 MEALS DIET RX: CARDIAC-PT MAY BENEFIT FROM LIBERALIZED DIET TO INCREASE KCALS WILL CHANGE TO REGULAR DIET PT RECEIVING ENSURE TID PROVIDES 1050KCALS, 60G PROTEIN WITH 100% ACCEPTANCE MONITOR PO INTAKE AND ENCOURAGE SUPPLEMENTS SEE ALSO FULL CLINICAL NUTRITION ASSESSMENT
--- NOTE | 2023-12-06 09:54 | HO.PM.IMPN ---
Subjective Subjective Date of Service: 12/06/23 Interval History: Being followed for MARKUS/hematuria/severe sepsis Feeling better this morning offers no acute complaints tolerating diet no nausea, no vomiting, no abdominal pain. Urine clear overnight, CBI running. Review of Systems All other system reviewed and negative Physical Exam Vital Signs: Vital Signs: Last Vital Signs Temp 97.6 F 12/06/23 07:20 Pulse 81 12/06/23 07:20 Resp 18 12/06/23 07:20 BP 138/71 12/06/23 07:20 Pulse Ox 96 12/06/23 07:20 O2 Del Method Room Air 12/06/23 07:20 BMI result Body Mass Index 16.8 Const: Other: General frail , resting comfortably in no acute distress. Neck supple no JVD. CVS regular rate rhythm, Respiratory lungs clear to auscultation, no respiratory distress, no wheeze, no rhonchi. Gastrointestinal abdomen soft, non tender, bowel sounds audible, no guarding , no rigidity. Extremities no edema. Neuro non focal , speech clear. Skin no rash Psych appropriate affect CBI clear urine Objective Data Active Medications Acetaminophen (Acetaminophen 325 Mg Tablet) 650 mg PO Q6H PRN PRN Reason: Pain, Mild (Pain Scale 1-3), fever or headache Alprazolam (Alprazolam 0.5 Mg Tablet) 1 mg PO BID PRN PRN Reason: anxiety Last Admin: 12/05/23 20:47 Dose: 1 mg Documented By: ANTHONY Benzonatate (Benzonatate 100 Mg Capsule) 100 mg PO TID PRN PRN Reason: Cough Calcium Carbonate (Calcium Carbonate 750 Mg Tab.Chew) 750 mg PO Q4H PRN PRN Reason: Heartburn Cyanocobalamin (Cyanocobalamin (Vitamin B-12) 1,000 Mcg Tablet) 1,000 mcg PO DAILY [facility] Last Admin: 12/06/23 07:56 Dose: 1,000 mcg Documented By: MATT Sodium Chloride (Ns) 1,000 mls @ 100 mls/hr IVCONT .Q10H [facility] Last Admin: 12/06/23 09:48 Dose: Not Given Documented By: MATT Non-Admin Reason: IV Running Piperacillin Sod/Tazobactam (Sod 2.25 gm/ Sodium Chloride) 50 mls @ 100 mls/hr IV Q6H [facility] Last Infusion: 12/06/23 09:14 Dose: Infused Documented By: MATT Magnesium Hydroxide (Milk Of Magnesia 30 Ml Oral.Susp) 30 ml PO DAILY PRN PRN Reason: Constipation Melatonin (Melatonin 3 Mg Tablet) 6 mg PO BEDTIME PRN PRN Reason: Insomnia Mirtazapine (Mirtazapine 15 Mg Tablet) 15 mg PO BEDTIME [facility] Last Admin: 12/05/23 20:47 Dose: 15 mg Documented By: ANTHONY Ondansetron HCl (Ondansetron Hcl 4 Mg/2 Ml Vial) 4 mg IVPUSH Q8H PRN PRN Reason: Nausea and Vomiting Paroxetine HCl (Paroxetine Hcl 30 Mg Tablet) 60 mg PO BEDTIME [facility] Last Admin: 12/05/23 20:47 Dose: 60 mg Documented By: ANTHONY Quetiapine Fumarate (Quetiapine Fumarate 100 Mg Tablet) 100 mg PO BEDTIME [facility] Last Admin: 12/05/23 20:47 Dose: 100 mg Documented By: ANTHONY Ropinirole HCl (Ropinirole Hcl 1 Mg Tablet) 3 mg PO BEDTIME [facility] Last Admin: 12/05/23 20:47 Dose: 3 mg Documented By: ANTHONY Sodium Bicarbonate (Sodium Bicarbonate 650 Mg Tablet) 650 mg PO BID [facility] Last Admin: 12/06/23 07:56 Dose: 650 mg Documented By: MATT Sodium Chloride (0.9 % Sodium Chloride Flush 3 Ml Syringe) 3 ml IVFLUSH QSHIFT [facility] Last Admin: 12/06/23 08:07 Dose: Not Given Documented By: MATT Non-Admin Reason: IV Running Vitamin D (Cholecalciferol (Vitamin D3) 25 Mcg Tablet) 25 mcg PO DAILY [facility] Last Admin: 12/06/23 07:56 Dose: 25 mcg Documented By: MATT Labs 12/06/23 06:46 12/06/23 06:46 Labs: Laboratory Results - last 24 hr 12/06/23 06:46 MCV 89.1 MCH 27.8 MCHC 31.2 RDW 14.0 Plt Count 223 MPV 8.8 L Absolute Nucleated RBC 0.000 Nucleated RBC % (auto) 0.0 Anion Gap 9 L Estim Creat Clear Calc 43.7 Estimated GFR 57 Random Glucose 83 Calcium 8.3 L Microbiology Microbiology Results: Microbiology 12/04/23 Unknown Urine Culture - Preliminary Urine clean catch - Clean Catch Midstream Gram negative oumar Lactobacillus species 12/04/23 13:55 Blood Culture - Preliminary Blood - Venous No growth after 24 hours. 12/04/23 13:55 Blood Culture - Preliminary Blood - Venous No growth after 24 hours. Assessment and Plan (1) Hematuria: Status: Acute (2) ABLA (acute blood loss anemia): Status: Acute (3) MARKUS (acute kidney injury): Status: Acute Plan 73-year-old male with a PMH significant for?prostate cancer s/p prostatectomy and radiation therapy complicated by radiation proctitis, CAD s/p PCI in 2015, carotid artery stenosis s/p bilateral carotid stenting, hx of cerebral hemorrhage, epilepsy, HLD, HTN, restless leg syndrome, and anxiety who presents to the ED for evaluation right lower lump, chills and diagnosed to have severe sepsis, MARKUS acute blood loss anemia and hematuria. Severe sepsis due to acute pyelonephritis Noted to have leukocytosis, lactic acidosis, tachycardia and MARKUS Sepsis resolved Urine culture grew Gram-negative oumar and lactobacillus less than 50,000 follow final sensitivities Continue IV Zosyn renally dose, WBC normalized, no fevers Acute kidney injury metabolic acidosis resolved cyndi prerenal , due to hypotension and obstructive uropathy ,CT abdomen and pelvis showed [id number] bilateral hydroureteronephrosis without clear cause of obstruction, potentially related to intraluminal blood products . 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 Chronic diarrhea No recurrent diarrhea, had normal bowel movement has been incontinent of urine and stool x several months CT of abdomen and pelvis showed generalized rectal wall thickening surrounding the stool ball, with surrounding fat stranding consistent with proctitis , similar findings noted on prior imaging studies Previously seen by GI they recommended mesalamine by mouth t.i.d. and cholestyramine. But as per patient he was later instructed to stop these medications. CAD/history of bilateral carotid stenting aspirin, Plavix, on hold due to hematuria /will discuss with Urology went to resume Will resume statin and isosorbide HTN Blood pressure trending of will resume isosorbide, continue to hold lisinopril follow BP Mood disorder Continue home meds Moderate protein calorie malnutrition add supplements Full Code DVT Prophylaxis: Mechanical device Pt will require continued inpatient hospitalization for treatment of?MARKUS , severe sepsis, hematuria requiring CBI, IV antibiotics. Quality Stroke Does the patient have a stroke diagnosis?: No VTE Prior VTE?: No VTE Risk Level:: Medical - moderate - high VTE Device Contraindication: N/A - Device Ordered VTE Drug Contraindication: Treatment Not Indicated
--- NOTE | 2023-12-06 11:02 | MHC.CM.PN ---
Per ROUNDS discussion, Patient is not yet medically cleared for dc (CBI); home is the goal and CM will continue to follow.
[2023-12-06] MEDS: Isosorbide Mononitrate 30 MG TAB.ER.24H PO (11:38)
[2023-12-06] MEDS: Atorvastatin Calcium 80 MG TABLET PO (11:38)
[2023-12-06] MEDS: QUEtiapine Fumarate 100 MG TABLET PO (20:55)
[2023-12-06] MEDS: rOPINIRole HCL 1 MG TABLET 3 MG PO (20:55)
[2023-12-06] MEDS: Mirtazapine 15 MG TABLET PO (20:55)
[2023-12-06] MEDS: PARoxetine HCL 30 MG TABLET 60 MG PO (20:55)
[2023-12-06] MEDS: ALPRAZolam 0.5 MG TABLET 1 MG PO (20:59)
[2023-12-07] VITALS (7 sets, daily range): BP systolic 90–134; BP diastolic 53–73; PULSE 78–95; RESP 17–20; TEMP 36.2–36.7; O2SAT 94–96
[2023-12-07] MEDS: Piperacillin Sodium/Tazobactam 2.25 GM in 0.9 % Sodium Chloride 50 ML IV ×4 (05:46→20:52)
[2023-12-07] MEDS: 0.9 % Sodium Chloride Flush 3 ML SYRINGE IVFLUSH ×2 (05:47→20:52)
[2023-12-07 06:21] LABS: Mean Corpuscular Hemoglobin 28.1 pg (27.0-33.0); Mean Corpuscular Volume 87.7 fL (80.0-98.0); Mean Platelet Volume 8.8 fL (9.4-12.4); Platelet Count 243 X10*3/uL (160-400); Red Blood Count 2.85 X10*6/uL (4.60-5.80); Red Cell Distribution Width 13.7 % (11.0-16.0); White Blood Count 6.9 X10*3/uL (4.8-10.8)
[2023-12-07 06:37] LABS: Anion Gap 13 (12-20); Blood Urea Nitrogen 16 mg/dL (9-16); Calcium 8.4 mg/dL (8.4-10.2); Carbon Dioxide 19 mmol/L (22-29); Chloride 110 mmol/L (96-108); Creatinine Clr Calc Pharmacy 51.5; Estimated Glomerular Filt Rate > 60; Glucose Random 83 mg/dL (60-115); Potassium 3.8 mmol/L (3.3-5.1); Sodium 138 mmol/L (135-145)
[2023-12-07] MEDS: Sodium Bicarbonate 650 MG TABLET PO ×2 (08:40→20:52)
[2023-12-07] MEDS: Cyanocobalamin (Vitamin B-12) 1,000 MCG TABLET 1000 MCG PO (08:40)
[2023-12-07] MEDS: Cholecalciferol (Vitamin D3) 25 MCG TABLET PO (08:40)
[2023-12-07] MEDS: Atorvastatin Calcium 80 MG TABLET PO (08:40)
[2023-12-07] MEDS: Isosorbide Mononitrate 30 MG TAB.ER.24H PO (08:40)
--- NOTE | 2023-12-07 13:16 | P.PNIM_ITS ---
Subjective Subjective Date of Service: 12/07/23 Interval History: f/u on hematuria, sepsis d/t pyelo sepsis resolved, hematuria clear on cbi Physical Exam 2 Vital Signs: Vital Signs: Last Vital Signs Temp 97.8 F 12/07/23 12:00 Pulse 95 12/07/23 12:00 Resp 17 12/07/23 12:00 BP 117/63 12/07/23 12:00 Pulse Ox 95 12/07/23 12:00 O2 Del Method Room Air 12/07/23 12:00 BMI result Body Mass Index 16.8 Const: Other: General frail , resting comfortably in no acute distress. Neck supple no JVD. CVS regular rate rhythm, Respiratory lungs clear to auscultation, no respiratory distress, no wheeze, no rhonchi. Gastrointestinal abdomen soft, non tender, bowel sounds audible, no guarding , no rigidity. Extremities no edema. Neuro non focal , speech clear. Skin no rash Psych appropriate affect CBI clear urine Objective Data Active Medications Acetaminophen (Acetaminophen 325 Mg Tablet) 650 mg PO Q6H PRN PRN Reason: Pain, Mild (Pain Scale 1-3), fever or headache Alprazolam (Alprazolam 0.5 Mg Tablet) 1 mg PO BID PRN PRN Reason: anxiety Last Admin: 12/06/23 20:59 Dose: 1 mg Documented By: DAVID Atorvastatin Calcium (Atorvastatin Calcium 80 Mg Tablet) 80 mg PO DAILY [facility] Last Admin: 12/07/23 08:40 Dose: 80 mg Documented By: KEYUR Benzonatate (Benzonatate 100 Mg Capsule) 100 mg PO TID PRN PRN Reason: Cough Calcium Carbonate (Calcium Carbonate 750 Mg Tab.Chew) 750 mg PO Q4H PRN PRN Reason: Heartburn Cyanocobalamin (Cyanocobalamin (Vitamin B-12) 1,000 Mcg Tablet) 1,000 mcg PO DAILY [facility] Last Admin: 12/07/23 08:40 Dose: 1,000 mcg Documented By: KEYUR Piperacillin Sod/Tazobactam (Sod 2.25 gm/ Sodium Chloride) 50 mls @ 100 mls/hr IV Q6H [facility] Last Infusion: 12/07/23 10:26 Dose: Infused Documented By: KEYUR Isosorbide Mononitrate (Isosorbide Mononitrate 30 Mg Tab.Er.24h) 30 mg PO DAILY [facility]; Protocol Last Admin: 12/07/23 08:40 Dose: 30 mg Documented By: KEYUR Magnesium Hydroxide (Milk Of Magnesia 30 Ml Oral.Susp) 30 ml PO DAILY PRN PRN Reason: Constipation Melatonin (Melatonin 3 Mg Tablet) 6 mg PO BEDTIME PRN PRN Reason: Insomnia Mirtazapine (Mirtazapine 15 Mg Tablet) 15 mg PO BEDTIME [facility] Last Admin: 12/06/23 20:55 Dose: 15 mg Documented By: DAVID Ondansetron HCl (Ondansetron Hcl 4 Mg/2 Ml Vial) 4 mg IVPUSH Q8H PRN PRN Reason: Nausea and Vomiting Paroxetine HCl (Paroxetine Hcl 30 Mg Tablet) 60 mg PO BEDTIME [facility] Last Admin: 12/06/23 20:55 Dose: 60 mg Documented By: DAVID Quetiapine Fumarate (Quetiapine Fumarate 100 Mg Tablet) 100 mg PO BEDTIME [facility] Last Admin: 12/06/23 20:55 Dose: 100 mg Documented By: DAVID Ropinirole HCl (Ropinirole Hcl 1 Mg Tablet) 3 mg PO BEDTIME [facility] Last Admin: 12/06/23 20:55 Dose: 3 mg Documented By: DAVID Sodium Bicarbonate (Sodium Bicarbonate 650 Mg Tablet) 650 mg PO BID [facility] Last Admin: 12/07/23 08:40 Dose: 650 mg Documented By: KEYUR Sodium Chloride (0.9 % Sodium Chloride Flush 3 Ml Syringe) 3 ml IVFLUSH QSHIFT [facility] Last Admin: 12/07/23 08:40 Dose: Not Given Documented By: KEYUR Non-Admin Reason: IV Running Vitamin D (Cholecalciferol (Vitamin D3) 25 Mcg Tablet) 25 mcg PO DAILY [facility] Last Admin: 12/07/23 08:40 Dose: 25 mcg Documented By: KEYUR Labs 12/07/23 05:58 12/07/23 05:58 Labs: Laboratory Results - last 24 hr 12/07/23 05:58 MCV 87.7 MCH 28.1 MCHC 32.0 RDW 13.7 Plt Count 243 MPV 8.8 L Absolute Nucleated RBC 0.000 Nucleated RBC % (auto) 0.0 Anion Gap 13 Estim Creat Clear Calc 51.5 Estimated GFR > 60 Random Glucose 83 Calcium 8.4 Microbiology Microbiology Results: Microbiology 12/04/23 Unknown Urine Culture - Final Urine clean catch - Clean Catch Midstream Escherichia coli Lactobacillus species 12/04/23 13:55 Blood Culture - Preliminary Blood - Venous No growth after 48 hours. 12/04/23 13:55 Blood Culture - Preliminary Blood - Venous No growth after 48 hours. Assessment and Plan (1) Hematuria: Status: Acute (2) ABLA (acute blood loss anemia): Status: Acute (3) MARKUS (acute kidney injury): Status: Acute Plan 73-year-old male with a PMH significant for?prostate cancer s/p prostatectomy and radiation therapy complicated by radiation proctitis, CAD s/p PCI in 2014, carotid artery stenosis s/p bilateral carotid stenting, hx of cerebral hemorrhage, epilepsy, HLD, HTN, restless leg syndrome, and anxiety who presents to the ED for evaluation right lower lump, chills and diagnosed to have severe sepsis, MARKUS acute blood loss anemia and hematuria. Severe sepsis due to acute pyelonephritis, urine culture lactobacilus and E. coli. 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 and cholestyramine. But as per patient he was later instructed to stop these medications. CAD/history of bilateral carotid stenting aspirin, Plavix. Uro recommends restarting plavix 48 once bleeding stops HTN--BP within normal, hold meds Mood disorder Continue home meds Moderate protein calorie malnutrition add supplements Full Code DVT Prophylaxis: Mechanical device Pt will require continued inpatient hospitalization for treatment of?MARKUS , severe sepsis, hematuria requiring CBI, IV antibiotics. Quality Stroke Does the patient have a stroke diagnosis?: No VTE Prior VTE?: No VTE Risk Level:: Medical - moderate - high VTE Device Contraindication: N/A - Device Ordered VTE Drug Contraindication: Treatment Not Indicated
--- NOTE | 2023-12-07 17:59 | HO.WOUND ---
Wound Consult: Initial 73yr old?Male admitted to [facility] on 12/04/23 - See progress notes and H&P for detailed history.? Wound consult placed for [place] wound.? Patient agreeable to assessment and photo documentation.? Patient is noted for incontinence of loose stool. See chart for photo review. Sacrum Etiology: Stage 2 Pressure Injury ??Present on Admission Measurements: 1cm x 1cm x 0.1cm Wound Bed: red nonblanchable tissue with area of epidermal peeling Drainage / Odor: none Edges: ? well defined Ernestine wound: MASD ? No Induration, Fluctuance or Warmth noted Pain: no pain reported Goals of Treatment: ? Off Load pressure and foam dressing to aid in pressure redistribution Buttock and Perianal Etiology: MASD Moisture Associated Skin Damage Wound Bed: red blanchable tissue with area of epidermal peeling Drainage / Odor: none Edges: ?mirrored Ernestine wound: MASD ? No Induration, Fluctuance or Warmth noted Pain: tenderness reported when cleansing Goals of Treatment Barrier cream to protect from moisture and friction Recommendations: 1. Turn and Reposition every 2 hours and as needed for patient comfort.? Use pillows or wedges to support off loading positions. 2. Off Load all bony prominences with use of pillows and heel boots if needed.? Apply Preventative foams where needed. ? 3. Monitor for incontinence and moisture control, use barrier creams when needed for prevention and treatment. 4. Provide adequate and supplemental nutrition.? 5. Continue low air loss mattress. 6. When applicable maintain blood glucose levels per Providers order. 7. Sacrum - Off Load Pressure - Cleanse with Ph balanced wipes. apply sacral foam dressing Change every 5 days and PRN. 8. Buttock and Perianal - Cleanse with Ph balanced wipes. Apply barrier cream to protect from moisture and friction twice daily and PRN. Re-consult wound care Nurse for wound deterioration or wound changes.
[2023-12-07] MEDS: rOPINIRole HCL 1 MG TABLET 3 MG PO (20:51)
[2023-12-07] MEDS: ALPRAZolam 0.5 MG TABLET 1 MG PO (20:52)
[2023-12-07] MEDS: PARoxetine HCL 30 MG TABLET 60 MG PO (20:52)
[2023-12-07] MEDS: QUEtiapine Fumarate 100 MG TABLET PO (20:52)
[2023-12-07] MEDS: Mirtazapine 15 MG TABLET PO (20:52)
[2023-12-08] MEDS: Piperacillin Sodium/Tazobactam 2.25 GM in 0.9 % Sodium Chloride 50 ML IV ×4 (01:52→20:14)
[2023-12-08 03:42] VITALS: BP 112/63; PULSE 93; RESP 18; TEMP 36.9; O2SAT 96
[2023-12-08 06:58] LABS: Hematocrit 26.4 % (42.0-52.0); Hemoglobin 8.3 g/dl (14.0-18.0); Mean Corpuscular HGB Conc 31.4 g/dl (31.0-36.0); Mean Corpuscular Hemoglobin 27.4 pg (27.0-33.0); Mean Corpuscular Volume 87.1 fL (80.0-98.0); Mean Platelet Volume 8.8 fL (9.4-12.4); Platelet Count 265 X10*3/uL (160-400); Red Blood Count 3.03 X10*6/uL (4.60-5.80); Red Cell Distribution Width 13.7 % (11.0-16.0); White Blood Count 8.1 X10*3/uL (4.8-10.8)
[2023-12-08 07:17] LABS: Anion Gap 12 (12-20); Blood Urea Nitrogen 14 mg/dL (9-16); Calcium 9.1 mg/dL (8.4-10.2); Carbon Dioxide 26 mmol/L (22-29); Chloride 106 mmol/L (96-108); Creatinine Clr Calc Pharmacy 47.1; Estimated Glomerular Filt Rate > 60; Glucose Random 124 mg/dL (60-115); Potassium 3.9 mmol/L (3.3-5.1); Sodium 140 mmol/L (135-145)
[2023-12-08 07:52] VITALS: BP 149/72; PULSE 89; RESP 19; TEMP 36.6; O2SAT 95
[2023-12-08] MEDS: Cholecalciferol (Vitamin D3) 25 MCG TABLET PO (08:38)
[2023-12-08] MEDS: Cyanocobalamin (Vitamin B-12) 1,000 MCG TABLET 1000 MCG PO (08:38)
[2023-12-08] MEDS: Isosorbide Mononitrate 30 MG TAB.ER.24H PO (08:38)
[2023-12-08] MEDS: 0.9 % Sodium Chloride Flush 3 ML SYRINGE IVFLUSH ×2 (08:38→14:32)
[2023-12-08] MEDS: Sodium Bicarbonate 650 MG TABLET PO ×2 (08:38→22:54)
[2023-12-08] MEDS: Atorvastatin Calcium 80 MG TABLET PO (08:38)
--- NOTE | 2023-12-08 09:44 | HO.PM.IMPN ---
Subjective Subjective Date of Service: 12/08/23 Interval History: f/u on hematuria, sepsis d/t pyelo CBI with punch color urine Physical Exam Vital Signs: Vital Signs: Last Vital Signs Temp 97.8 F 12/08/23 07:52 Pulse 89 12/08/23 07:52 Resp 19 12/08/23 07:52 BP 149/72 H 12/08/23 07:52 Pulse Ox 95 12/08/23 07:52 O2 Del Method Room Air 12/08/23 07:52 BMI result Body Mass Index 16.8 Const: Other: General frail , resting comfortably in no acute distress. Neck supple no JVD. CVS regular rate rhythm, Respiratory lungs clear to auscultation, no respiratory distress, no wheeze, no rhonchi. Gastrointestinal abdomen soft, non tender, bowel sounds audible, no guarding , no rigidity. Extremities no edema. Neuro non focal , speech clear. Skin no rash Psych appropriate affect CBI clear urine Objective Data Active Medications Acetaminophen (Acetaminophen 325 Mg Tablet) 650 mg PO Q6H PRN PRN Reason: Pain, Mild (Pain Scale 1-3), fever or headache Alprazolam (Alprazolam 0.5 Mg Tablet) 1 mg PO BID PRN PRN Reason: anxiety Last Admin: 12/07/23 20:52 Dose: 1 mg Documented By: SIMONA Comments: Anxiety Atorvastatin Calcium (Atorvastatin Calcium 80 Mg Tablet) 80 mg PO DAILY [facility] Last Admin: 12/08/23 08:38 Dose: 80 mg Documented By: TONEY Benzonatate (Benzonatate 100 Mg Capsule) 100 mg PO TID PRN PRN Reason: Cough Calcium Carbonate (Calcium Carbonate 750 Mg Tab.Chew) 750 mg PO Q4H PRN PRN Reason: Heartburn Cyanocobalamin (Cyanocobalamin (Vitamin B-12) 1,000 Mcg Tablet) 1,000 mcg PO DAILY [facility] Last Admin: 12/08/23 08:38 Dose: 1,000 mcg Documented By: TONEY Piperacillin Sod/Tazobactam (Sod 2.25 gm/ Sodium Chloride) 50 mls @ 100 mls/hr IV Q6H [facility] Last Infusion: 12/08/23 09:26 Dose: Infused Documented By: TONEY Isosorbide Mononitrate (Isosorbide Mononitrate 30 Mg Tab.Er.24h) 30 mg PO DAILY [facility]; Protocol Last Admin: 12/08/23 08:38 Dose: 30 mg Documented By: TONEY Magnesium Hydroxide (Milk Of Magnesia 30 Ml Oral.Susp) 30 ml PO DAILY PRN PRN Reason: Constipation Melatonin (Melatonin 3 Mg Tablet) 6 mg PO BEDTIME PRN PRN Reason: Insomnia Mirtazapine (Mirtazapine 15 Mg Tablet) 15 mg PO BEDTIME [facility] Last Admin: 12/07/23 20:52 Dose: 15 mg Documented By: SIMONA Ondansetron HCl (Ondansetron Hcl 4 Mg/2 Ml Vial) 4 mg IVPUSH Q8H PRN PRN Reason: Nausea and Vomiting Paroxetine HCl (Paroxetine Hcl 30 Mg Tablet) 60 mg PO BEDTIME [facility] Last Admin: 12/07/23 20:52 Dose: 60 mg Documented By: SIMONA Quetiapine Fumarate (Quetiapine Fumarate 100 Mg Tablet) 100 mg PO BEDTIME [facility] Last Admin: 12/07/23 20:52 Dose: 100 mg Documented By: SIMONA Ropinirole HCl (Ropinirole Hcl 1 Mg Tablet) 3 mg PO BEDTIME [facility] Last Admin: 12/07/23 20:51 Dose: 3 mg Documented By: SIMONA Sodium Bicarbonate (Sodium Bicarbonate 650 Mg Tablet) 650 mg PO BID [facility] Last Admin: 12/08/23 08:38 Dose: 650 mg Documented By: TONEY Sodium Chloride (0.9 % Sodium Chloride Flush 3 Ml Syringe) 3 ml IVFLUSH QSHIFT [facility] Last Admin: 12/08/23 08:38 Dose: 3 ml Documented By: TONEY Vitamin D (Cholecalciferol (Vitamin D3) 25 Mcg Tablet) 25 mcg PO DAILY [facility] Last Admin: 12/08/23 08:38 Dose: 25 mcg Documented By: TONEY Labs 12/08/23 05:56 12/08/23 05:56 Labs: Laboratory Results - last 24 hr 12/08/23 05:56 MCV 87.1 MCH 27.4 MCHC 31.4 RDW 13.7 Plt Count 265 MPV 8.8 L Absolute Nucleated RBC 0.000 Nucleated RBC % (auto) 0.0 Anion Gap 12 Estim Creat Clear Calc 47.1 Estimated GFR > 60 Random Glucose 124 H Calcium 9.1 D Microbiology Microbiology Results: Microbiology 12/04/23 Unknown Urine Culture - Final Urine clean catch - Clean Catch Midstream Escherichia coli Lactobacillus species Assessment and Plan (1) Hematuria: Status: Acute (2) ABLA (acute blood loss anemia): Status: Acute (3) MARKUS (acute kidney injury): Status: Acute Plan 73-year-old male with a PMH significant for?prostate cancer s/p prostatectomy and radiation therapy complicated by radiation proctitis, CAD s/p PCI in 2014, carotid artery stenosis s/p bilateral carotid stenting, hx of cerebral hemorrhage, epilepsy, HLD, HTN, restless leg syndrome, and anxiety who presents to the ED for evaluation right lower lump, chills and diagnosed to have severe sepsis, MARKUS acute blood loss anemia and hematuria. Severe sepsis due to acute pyelonephritis, urine culture lactobacilus and E. coli. 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 Hold ASA, Plavix Chronic diarrhea No recurrent diarrhea, had normal bowel movement has been incontinent of urine and stool x several months CT of abdomen and pelvis showed generalized rectal wall thickening surrounding the stool ball, with surrounding fat stranding consistent with proctitis , similar findings noted on prior imaging studies Previously seen by GI they recommended mesalamine by mouth t.i.d. and cholestyramine. But as per patient he was later instructed to stop these medications. CAD/history of bilateral carotid stenting aspirin, Plavix. Uro recommends restarting plavix 48 once bleeding stops HTN--BP within normal, hold meds Mood disorder Continue home meds Moderate protein calorie malnutrition add supplements Full Code DVT Prophylaxis: Mechanical device Pt will require continued inpatient hospitalization for treatment of?MARKUS , severe sepsis, hematuria requiring CBI, IV antibiotics. Quality Stroke Does the patient have a stroke diagnosis?: No VTE Prior VTE?: No VTE Risk Level:: Medical - moderate - high VTE Device Contraindication: N/A - Device Ordered VTE Drug Contraindication: Treatment Not Indicated
--- NOTE | 2023-12-08 10:17 | MHC.CLN ---
F/U PT IS MODERATELY MALNOURISHED SEE FULL CLINICAL NUTRITION ASSESSMENT DATED 12/06/23 PO INTAKE 100% X 4 MEALS DIET RX: REGULAR-APPROPRIATE PT NOTED WITH STAGE 2 SACRUM AND REQUIRES INCREASED KCALS/PROTEIN TO PROMOTE WOUND HEALING PT RECEIVING ENSURE TID PROVIDES 1050KCALS, 60G PROTEIN WITH 100% ACCEPTANCE MONITOR PO INTAKE AND ENCOURAGE SUPPLEMENTS
[2023-12-08 11:22] VITALS: BP 117/63; PULSE 88; RESP 18; TEMP 36.3; O2SAT 95
--- NOTE | 2023-12-08 12:51 | MHC.CM.PN ---
Per ROUNDS discussion, Patient is not yet medically cleared for dc (CBI); PT is recommending STR and CM will continue to follow.
[2023-12-08 15:44] VITALS: BP 109/74; PULSE 84; RESP 19; TEMP 36.7; O2SAT 97
[2023-12-08 20:00] VITALS: BP 85/54; PULSE 88; RESP 18; TEMP 37.1; O2SAT 95
[2023-12-08] MEDS: Lactated Ringers 1,000 ML 999 ML IV ×2 (21:06→22:55)
[2023-12-08 22:03] LABS: Lactic Acid 3.2 mmol/L (0.5-2.0)
[2023-12-08 22:46] VITALS: BP 104/68; PULSE 90; RESP 18; TEMP 37.1; O2SAT 97
[2023-12-08] MEDS: ALPRAZolam 0.5 MG TABLET 1 MG PO (22:54)
[2023-12-08] MEDS: rOPINIRole HCL 1 MG TABLET 3 MG PO (22:54)
[2023-12-08] MEDS: Mirtazapine 15 MG TABLET PO (22:54)
[2023-12-08] MEDS: PARoxetine HCL 30 MG TABLET 60 MG PO (22:55)
[2023-12-08] MEDS: QUEtiapine Fumarate 100 MG TABLET PO (22:55)
[2023-12-08 23:25] LABS: Reflex Lactate? Lactic Acid Added
[2023-12-09] VITALS (13 sets, daily range): BP systolic 96–176; BP diastolic 52–94; PULSE 85–108; RESP 16–22; TEMP 36.2–38.1; O2SAT 93–97
[2023-12-09 00:38] LABS: ~Lactic Acid-LAB USE ONLY 1.4 mmol/L (0.5-2.0)
[2023-12-09] MEDS: Acetaminophen 325 MG TABLET 650 MG PO (04:37)
[2023-12-09 06:39] LABS: Anion Gap 11 (12-20); Blood Urea Nitrogen 16 mg/dL (9-16); Calcium 8.1 mg/dL (8.4-10.2); Carbon Dioxide 25 mmol/L (22-29); Chloride 107 mmol/L (96-108); Creatinine Clr Calc Pharmacy 56.9; Estimated Glomerular Filt Rate > 60; Glucose Random 109 mg/dL (60-115); Potassium 3.6 mmol/L (3.3-5.1); Sodium 139 mmol/L (135-145)
[2023-12-09] MEDS: 0.9 % Sodium Chloride Flush 3 ML SYRINGE IVFLUSH ×3 (07:59→15:50)
[2023-12-09] MEDS: Sodium Bicarbonate 650 MG TABLET PO ×2 (07:59→21:23)
[2023-12-09] MEDS: Cholecalciferol (Vitamin D3) 25 MCG TABLET PO (07:59)
[2023-12-09] MEDS: Cyanocobalamin (Vitamin B-12) 1,000 MCG TABLET 1000 MCG PO (07:59)
[2023-12-09] MEDS: Atorvastatin Calcium 80 MG TABLET PO (07:59)
--- NOTE | 2023-12-09 11:09 | HO.PM.IMPN ---
Subjective Subjective Date of Service: 12/09/23 Interval History: f/u on hematuria, sepsis d/t pyelo cbi occluded last night and they were unable to insert epps, no urinary retention at this time. still with some hematuria Physical Exam Vital Signs: Vital Signs: Last Vital Signs Temp 98.0 F 12/09/23 08:00 Pulse 103 H 12/09/23 08:00 Resp 19 12/09/23 08:00 BP 104/56 L 12/09/23 08:00 Pulse Ox 95 12/09/23 08:00 O2 Del Method Room Air 12/09/23 08:00 BMI result Body Mass Index 16.8 Const: Other: General frail , resting comfortably in no acute distress. Neck supple no JVD. CVS regular rate rhythm, Respiratory lungs clear to auscultation, no respiratory distress, no wheeze, no rhonchi. Gastrointestinal abdomen soft, non tender, bowel sounds audible, no guarding , no rigidity. Extremities no edema. Neuro non focal , speech clear. Skin no rash Psych appropriate affect CBI clear urine Objective Data Active Medications Acetaminophen (Acetaminophen 325 Mg Tablet) 650 mg PO Q6H PRN PRN Reason: Pain, Mild (Pain Scale 1-3), fever or headache Last Admin: 12/09/23 04:37 Dose: 650 mg Documented By: SIMONA Alprazolam (Alprazolam 0.5 Mg Tablet) 1 mg PO BID PRN PRN Reason: anxiety Last Admin: 12/08/23 22:54 Dose: 1 mg Documented By: IRAIDA Atorvastatin Calcium (Atorvastatin Calcium 80 Mg Tablet) 80 mg PO DAILY [facility] Last Admin: 12/09/23 07:59 Dose: 80 mg Documented By: TONEY Benzonatate (Benzonatate 100 Mg Capsule) 100 mg PO TID PRN PRN Reason: Cough Calcium Carbonate (Calcium Carbonate 750 Mg Tab.Chew) 750 mg PO Q4H PRN PRN Reason: Heartburn Cyanocobalamin (Cyanocobalamin (Vitamin B-12) 1,000 Mcg Tablet) 1,000 mcg PO DAILY [facility] Last Admin: 12/09/23 07:59 Dose: 1,000 mcg Documented By: TONEY Piperacillin Sod/Tazobactam (Sod 4.5 gm/ Sodium Chloride) 50 mls @ 100 mls/hr IV Q6H [facility] Last Infusion: 12/09/23 08:46 Dose: Infused Documented By: TONEY Magnesium Hydroxide (Milk Of Magnesia 30 Ml Oral.Susp) 30 ml PO DAILY PRN PRN Reason: Constipation Melatonin (Melatonin 3 Mg Tablet) 6 mg PO BEDTIME PRN PRN Reason: Insomnia Mirtazapine (Mirtazapine 15 Mg Tablet) 15 mg PO BEDTIME [facility] Last Admin: 12/08/23 22:54 Dose: 15 mg Documented By: IRAIDA Ondansetron HCl (Ondansetron Hcl 4 Mg/2 Ml Vial) 4 mg IVPUSH Q8H PRN PRN Reason: Nausea and Vomiting Paroxetine HCl (Paroxetine Hcl 30 Mg Tablet) 60 mg PO BEDTIME [facility] Last Admin: 12/08/23 22:55 Dose: 60 mg Documented By: IRAIDA Quetiapine Fumarate (Quetiapine Fumarate 100 Mg Tablet) 100 mg PO BEDTIME [facility] Last Admin: 12/08/23 22:55 Dose: 100 mg Documented By: IRAIDA Ropinirole HCl (Ropinirole Hcl 1 Mg Tablet) 3 mg PO BEDTIME [facility] Last Admin: 12/08/23 22:54 Dose: 3 mg Documented By: IRAIDA Sodium Bicarbonate (Sodium Bicarbonate 650 Mg Tablet) 650 mg PO BID [facility] Last Admin: 12/09/23 07:59 Dose: 650 mg Documented By: TONEY Sodium Chloride (0.9 % Sodium Chloride Flush 3 Ml Syringe) 3 ml IVFLUSH QSHIFT [facility] Last Admin: 12/09/23 07:59 Dose: 3 ml Documented By: TONEY Vitamin D (Cholecalciferol (Vitamin D3) 25 Mcg Tablet) 25 mcg PO DAILY [facility] Last Admin: 12/09/23 07:59 Dose: 25 mcg Documented By: TONEY Labs 12/08/23 05:56 12/09/23 05:59 Labs: Laboratory Results - last 24 hr 12/08/23 12/09/23 12/09/23 21:17 00:19 05:59 Hold Purple Top SEE NOTE Anion Gap 11 L Estim Creat Clear Calc 56.9 Estimated GFR > 60 Random Glucose 109 Lactic Acid 3.2 H* Lactic Acid F/U @ 2Hr 1.4 Calcium 8.1 L D Assessment and Plan (1) Hematuria: Status: Acute (2) ABLA (acute blood loss anemia): Status: Acute (3) MARKUS (acute kidney injury): Status: Acute Plan 73-year-old male with a PMH significant for?prostate cancer s/p prostatectomy and radiation therapy complicated by radiation proctitis, CAD s/p PCI in 2014, carotid artery stenosis s/p bilateral carotid stenting, hx of cerebral hemorrhage, epilepsy, HLD, HTN, restless leg syndrome, and anxiety who presents to the ED for evaluation right lower lump, chills and diagnosed to have severe sepsis, MARKUS acute blood loss anemia and hematuria. Severe sepsis due to acute pyelonephritis, urine culture lactobacilus and E. coli. 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 Hold ASA, Plavix. urology to follow, epps out, and nursing unable to reinsert Chronic diarrhea No recurrent diarrhea, had normal bowel movement has been incontinent of urine and stool x several months CT of abdomen and pelvis showed generalized rectal wall thickening surrounding the stool ball, with surrounding fat stranding consistent with proctitis , similar findings noted on prior imaging studies Previously seen by GI they recommended mesalamine by mouth t.i.d. and cholestyramine. But as per patient he was later instructed to stop these medications. CAD/history of bilateral carotid stenting aspirin, Plavix. Uro recommends restarting plavix 48 once bleeding stops HTN--BP within normal, hold meds Mood disorder Continue home meds Moderate protein calorie malnutrition add supplements Full Code DVT Prophylaxis: Mechanical device Pt will require continued inpatient hospitalization for treatment of?MARKUS , severe sepsis, hematuria requiring CBI, IV antibiotics. Quality Stroke Does the patient have a stroke diagnosis?: No VTE Prior VTE?: No VTE Risk Level:: Medical - moderate - high VTE Device Contraindication: N/A - Device Ordered VTE Drug Contraindication: Treatment Not Indicated
[2023-12-09 11:18] LABS: MANUAL DIFF FLAG NO
[2023-12-09 11:24] LABS: Basophils Percent Auto 0.4 % (0-2); Eosinophils Absolute Auto 0.1 X10*3/uL (0.0-0.4); Eosinophils Percent Auto 1.1 % (0-4); Hematocrit 23.2 % (42.0-52.0); Hemoglobin 7.6 g/dl (14.0-18.0); Imm Gran Abs Auto 0.06 X10*3/uL (0.00-0.03); Imm Gran Pct Auto 0.5 % (0.0-0.4); Lymphocytes Absolute Auto 0.5 X10*3/uL (1.2-4.9); Mean Corpuscular HGB Conc 32.8 g/dl (31.0-36.0); Mean Corpuscular Hemoglobin 28.4 pg (27.0-33.0); Mean Corpuscular Volume 86.6 fL (80.0-98.0); Mean Platelet Volume 8.9 fL (9.4-12.4); Monocytes Absolute Auto 0.7 X10*3/uL (0.1-1.2); Monocytes Percent Auto 6.4 % (2-11); Neutrophils Percent Auto 87.6 % (45-73); Platelet Count 236 X10*3/uL (160-400); Red Blood Count 2.68 X10*6/uL (4.60-5.80); White Blood Count 11.4 X10*3/uL (4.8-10.8)
--- NOTE | 2023-12-09 11:57 | P.CDIM_ITS ---
PROVIDER RESPONSE TEXT: To clarify, the appropriate diagnosis supported by the clinical indicators: Pressure Injury Sacrum Stage 2 QUERY TEXT: PHYSICIAN'S DOCUMENTATION REQUEST Date of Query: 12/08/2023 07:16 AM EDT Patient Name: Irwin Clark Admit Date: 12/04/2023 Dear Wiley Jeffries MD, A review of the medical record indicates additional documentation may be needed. Please review below and update the documentation accordingly. Clinical Indicators: Wound care: Sacrum - Stage 2 pressure injury Present on admission Off load pressure and foam dressing to aid in pressure redistribution. Based on the above, could you please provide further information regarding the ulcer/wound/injury: Pressure Injury Sacrum Stage 2 Other (explain) Clinically unable to determine (explain) Thank you, Eva Bermeo, CCS, CDIS Use of terms such as suspected, likely, concern for, or probable (associated with a specific diagnosi s that is being evaluated, monitored, or treated as if it exists) are acceptable and can be coded in the inpatient se tting, when documented at the time of discharge. Please use your independent medical judgment in providing your response. THIS QUERY IS PART OF THE PERMANENT MEDICAL RECORD
[2023-12-09] MEDS: rOPINIRole HCL 1 MG TABLET 3 MG PO (21:22)
[2023-12-09] MEDS: PARoxetine HCL 30 MG TABLET 60 MG PO (21:22)
[2023-12-09] MEDS: QUEtiapine Fumarate 100 MG TABLET PO (21:23)
[2023-12-09] MEDS: Mirtazapine 15 MG TABLET PO (21:23)
[2023-12-10] VITALS (7 sets, daily range): BP systolic 134–176; BP diastolic 70–101; PULSE 82–101; RESP 18–21; TEMP 36.6–37.5; O2SAT 92–96
[2023-12-10] MEDS: 0.9 % Sodium Chloride Flush 3 ML SYRINGE IVFLUSH ×4 (00:39→22:13)
[2023-12-10 06:39] LABS: Hematocrit 32.3 % (42.0-52.0); Hemoglobin 10.9 g/dl (14.0-18.0); Mean Corpuscular HGB Conc 33.7 g/dl (31.0-36.0); Mean Corpuscular Hemoglobin 29.1 pg (27.0-33.0); Mean Corpuscular Volume 86.1 fL (80.0-98.0); Mean Platelet Volume 8.9 fL (9.4-12.4); Platelet Count 201 X10*3/uL (160-400); Red Blood Count 3.75 X10*6/uL (4.60-5.80); Red Cell Distribution Width 13.7 % (11.0-16.0); White Blood Count 11.4 X10*3/uL (4.8-10.8)
[2023-12-10 06:57] LABS: Anion Gap 13 (12-20); Blood Urea Nitrogen 19 mg/dL (9-16); Calcium 8.5 mg/dL (8.4-10.2); Carbon Dioxide 22 mmol/L (22-29); Chloride 108 mmol/L (96-108); Creatinine Clr Calc Pharmacy 55.7; Estimated Glomerular Filt Rate > 60; Glucose Random 92 mg/dL (60-115); Potassium 3.5 mmol/L (3.3-5.1); Sodium 139 mmol/L (135-145)
[2023-12-10] MEDS: Cholecalciferol (Vitamin D3) 25 MCG TABLET PO (08:53)
[2023-12-10] MEDS: Sodium Bicarbonate 650 MG TABLET PO ×2 (08:53→22:12)
[2023-12-10] MEDS: Cyanocobalamin (Vitamin B-12) 1,000 MCG TABLET 1000 MCG PO (08:53)
[2023-12-10] MEDS: Atorvastatin Calcium 80 MG TABLET PO (08:53)
--- NOTE | 2023-12-10 09:54 | MHC.CLN ---
F/U PT IS MODERATELY MALNOURISHED PO INTAKE 50-100% DIET RX: REGULAR-APPROPRIATE PT NOTED WITH STAGE 2 SACRUM AND REQUIRES INCREASED KCALS/PROTEIN TO PROMOTE WOUND HEALING PT RECEIVING ENSURE TID PROVIDES 1050KCALS, 60G PROTEIN WITH 100% ACCEPTANCE CONTINUE TO MONITOR PO INTAKE AND ENCOURAGE SUPPLEMENTS
--- NOTE | 2023-12-10 10:22 | MHC.CM.PN ---
CM met with Patient at bedside to discuss PT's recommendation for STR; Patient prefers to go home. MD is aware and CM will follow.
[2023-12-10 12:01] LABS: Magnesium 1.7 mg/dL (1.6-2.6)
--- NOTE | 2023-12-10 14:13 | P.PNIM_ITS ---
Subjective Subjective Date of Service: 12/11/23 Interval History: f/u on hematuria, sepsis d/t pyelo cbi occluded last night and they were unable to insert epps, no urinary retention at this time. still with some hematuria Physical Exam 2 Vital Signs: Vital Signs: Last Vital Signs Temp 99.5 F 12/10/23 11:48 Pulse 82 12/10/23 11:48 Resp 19 12/10/23 11:48 BP 134/70 12/10/23 11:48 Pulse Ox 92 12/10/23 11:48 O2 Del Method Room Air 12/10/23 11:48 BMI result Body Mass Index 16.8 Const: Other: General frail , resting comfortably in no acute distress. Neck supple no JVD. CVS regular rate rhythm, Respiratory lungs clear to auscultation, no respiratory distress, no wheeze, no rhonchi. Gastrointestinal abdomen soft, non tender, bowel sounds audible, no guarding , no rigidity. Extremities no edema. Neuro non focal , speech clear. Skin no rash Psych appropriate affect CBI clear urine Objective Data Active Medications Acetaminophen (Acetaminophen 325 Mg Tablet) 650 mg PO Q6H PRN PRN Reason: Pain, Mild (Pain Scale 1-3), fever or headache Last Admin: 12/09/23 04:37 Dose: 650 mg Documented By: SIMONA Atorvastatin Calcium (Atorvastatin Calcium 80 Mg Tablet) 80 mg PO DAILY [facility] Last Admin: 12/10/23 08:53 Dose: 80 mg Documented By: RABIA Benzonatate (Benzonatate 100 Mg Capsule) 100 mg PO TID PRN PRN Reason: Cough Calcium Carbonate (Calcium Carbonate 750 Mg Tab.Chew) 750 mg PO Q4H PRN PRN Reason: Heartburn Cyanocobalamin (Cyanocobalamin (Vitamin B-12) 1,000 Mcg Tablet) 1,000 mcg PO DAILY [facility] Last Admin: 12/10/23 08:53 Dose: 1,000 mcg Documented By: RABIA Piperacillin Sod/Tazobactam (Sod 4.5 gm/ Sodium Chloride) 50 mls @ 100 mls/hr IV Q6H [facility] Last Infusion: 12/10/23 09:37 Dose: Infused Documented By: RABIA Magnesium Hydroxide (Milk Of Magnesia 30 Ml Oral.Susp) 30 ml PO DAILY PRN PRN Reason: Constipation Melatonin (Melatonin 3 Mg Tablet) 6 mg PO BEDTIME PRN PRN Reason: Insomnia Mirtazapine (Mirtazapine 15 Mg Tablet) 15 mg PO BEDTIME [facility] Last Admin: 12/09/23 21:23 Dose: 15 mg Documented By: FELIX Ondansetron HCl (Ondansetron Hcl 4 Mg/2 Ml Vial) 4 mg IVPUSH Q8H PRN PRN Reason: Nausea and Vomiting Paroxetine HCl (Paroxetine Hcl 30 Mg Tablet) 60 mg PO BEDTIME [facility] Last Admin: 12/09/23 21:22 Dose: 60 mg Documented By: FELIX Quetiapine Fumarate (Quetiapine Fumarate 100 Mg Tablet) 100 mg PO BEDTIME [facility] Last Admin: 12/09/23 21:23 Dose: 100 mg Documented By: FELIX Ropinirole HCl (Ropinirole Hcl 1 Mg Tablet) 3 mg PO BEDTIME [facility] Last Admin: 12/09/23 21:22 Dose: 3 mg Documented By: FELIX Sodium Bicarbonate (Sodium Bicarbonate 650 Mg Tablet) 650 mg PO BID [facility] Last Admin: 12/10/23 08:53 Dose: 650 mg Documented By: RABIA Sodium Chloride (0.9 % Sodium Chloride Flush 3 Ml Syringe) [facility] Last Admin: 12/10/23 08:53 Dose: 3 ml Documented By: RABIA Vitamin D (Cholecalciferol (Vitamin D3) 25 Mcg Tablet) 25 mcg PO DAILY [facility] Last Admin: 12/10/23 08:53 Dose: 25 mcg Documented By: RABIA Labs 12/10/23 06:06 12/10/23 06:06 Labs: Laboratory Results - last 24 hr 12/09/23 12/10/23 12:10 06:06 MCV 86.1 MCH 29.1 MCHC 33.7 RDW 13.7 Plt Count 201 MPV 8.9 L Absolute Nucleated RBC 0.000 Nucleated RBC % (auto) 0.0 Anion Gap 13 Estim Creat Clear Calc 55.7 Estimated GFR > 60 Random Glucose 92 Calcium 8.5 Magnesium 1.7 Blood Type B Positive Antibody Screen NEGATIVE Crossmatch See Detail Microbiology Microbiology Results: Microbiology 12/08/23 21:17 Blood Culture - Preliminary Blood - Venous No growth after 24 hours. 12/08/23 21:17 Blood Culture - Preliminary Blood - Venous No growth after 24 hours. 12/04/23 13:55 Blood Culture - Final Blood - Venous No growth after 5 days. 12/04/23 13:55 Blood Culture - Final Blood - Venous No growth after 5 days. Assessment and Plan (1) Hematuria: Status: Acute (2) ABLA (acute blood loss anemia): Status: Acute (3) MARKUS (acute kidney injury): Status: Acute Plan 73-year-old male with a PMH significant for?prostate cancer s/p prostatectomy and radiation therapy complicated by radiation proctitis, CAD s/p PCI in 2014, carotid artery stenosis s/p bilateral carotid stenting, hx of cerebral hemorrhage, epilepsy, HLD, HTN, restless leg syndrome, and anxiety who presents to the ED for evaluation right lower lump, chills and diagnosed to have severe sepsis, MARKUS acute blood loss anemia and hematuria. Severe sepsis due to acute pyelonephritis, urine culture lactobacilus and E. coli. 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 Hold ASA, Plavix. urology to follow, epps out, he's been incontinent of urine, restart asa, plavix tomorrow Chronic diarrhea No recurrent diarrhea, had normal bowel movement has been incontinent of urine and stool x several months CT of abdomen and pelvis showed generalized rectal wall thickening surrounding the stool ball, with surrounding fat stranding consistent with proctitis , similar findings noted on prior imaging studies Previously seen by GI they recommended mesalamine by mouth t.i.d. and cholestyramine. But as per patient he was later instructed to stop these medications. 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 Uro recommends restarting plavix 48 once bleeding stops HTN--BP within normal, hold meds Mood disorder Continue home meds Moderate protein calorie malnutrition add supplements Full Code DVT Prophylaxis: Mechanical device Pt will require continued inpatient hospitalization for treatment of?MARKUS , severe sepsis, hematuria requiring CBI, IV antibiotics. he is now agreable to go to SNF Quality Stroke Does the patient have a stroke diagnosis?: No VTE Prior VTE?: No VTE Risk Level:: Medical - moderate - high VTE Device Contraindication: N/A - Device Ordered VTE Drug Contraindication: Treatment Not Indicated
--- NOTE | 2023-12-10 14:29 | MHC.CM.PN ---
PT is now recommending home with home PT; CM will follow.
[2023-12-10] MEDS: Piperacillin Sodium/Tazobactam 4.5 GM in 0.9 % Sodium Chloride 100 ML IV ×2 (15:23→22:13)
[2023-12-10] MEDS: LORazepam 0.5 MG TABLET PO (17:14)
[2023-12-10] MEDS: PARoxetine HCL 30 MG TABLET 60 MG PO (22:12)
[2023-12-10] MEDS: rOPINIRole HCL 1 MG TABLET 3 MG PO (22:12)
[2023-12-10] MEDS: Mirtazapine 15 MG TABLET PO (22:12)
[2023-12-10] MEDS: QUEtiapine Fumarate 100 MG TABLET PO (22:12)
[2023-12-10] MEDS: ALPRAZolam 0.5 MG TABLET 1 MG PO (22:53)
[2023-12-11] VITALS (8 sets, daily range): BP systolic 96–150; BP diastolic 58–78; PULSE 80–108; RESP 16–20; TEMP 36.1–37.3; O2SAT 93–96
[2023-12-11] MEDS: Piperacillin Sodium/Tazobactam 4.5 GM in 0.9 % Sodium Chloride 100 ML IV ×4 (03:54→21:44)
[2023-12-11] MEDS: Sodium Bicarbonate 650 MG TABLET PO ×2 (08:51→21:44)
[2023-12-11] MEDS: Cyanocobalamin (Vitamin B-12) 1,000 MCG TABLET 1000 MCG PO (08:51)
[2023-12-11] MEDS: Atorvastatin Calcium 80 MG TABLET PO (08:51)
[2023-12-11] MEDS: Cholecalciferol (Vitamin D3) 25 MCG TABLET PO (08:51)
[2023-12-11] MEDS: 0.9 % Sodium Chloride Flush 3 ML SYRINGE IVFLUSH ×3 (09:26→21:45)
[2023-12-11] MEDS: PARoxetine HCL 30 MG TABLET 60 MG PO (21:44)
[2023-12-11] MEDS: rOPINIRole HCL 1 MG TABLET 3 MG PO (21:44)
[2023-12-11] MEDS: Mirtazapine 15 MG TABLET PO (21:44)
[2023-12-11] MEDS: ALPRAZolam 0.5 MG TABLET 1 MG PO (21:44)
[2023-12-11] MEDS: QUEtiapine Fumarate 100 MG TABLET PO (21:44)
[2023-12-12] VITALS (11 sets, daily range): BP systolic 125–156; BP diastolic 74–88; PULSE 90–103; RESP 16–20; TEMP 36.4–37.2; O2SAT 95–98
[2023-12-12] MEDS: Acetaminophen 325 MG TABLET 650 MG PO (02:18)
[2023-12-12] MEDS: Piperacillin Sodium/Tazobactam 4.5 GM in 0.9 % Sodium Chloride 100 ML IV ×3 (02:19→14:51)
--- NOTE | 2023-12-12 02:52 | PM.EVENT ---
Event Note Date of Service: 12/12/23 Event Note: Nurse reported hematuria with blood clots. Will order epps, cbi and urology evaluation Time Spent With Patient Time: Total time managing care of this patient today ____ minutes.
[2023-12-12] MEDS: oxyBUTYnin chloride ER 5 MG TAB.ER.24 PO (04:29)
[2023-12-12] MEDS: Morphine Sulfate 2 MG/ML CARTRIDGE 1 MG IVPUSH ×2 (04:30→06:18)
--- NOTE | 2023-12-12 07:50 | PC.NURSE ---
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 around 0200, urine found to be red tinged with small clots. MD notified. this nurse directed to initiate CBI. 0245: catheterization unsuccesful. david red blood with medium clots entered catheter tube but obstruction met in urethra and saline unable to flow. end of catheter found to be clotted with blood upon aborting cath attempt. MD aware. urology consulted. bladder scan unable to read residual volume. small amount of yellow urine observed to incontinence wrap around 0315. oxybutynin ER given with morphine IV for pain/bladder discomfort 02/02, later improved. vitals stable. call vargas in reach. plan of care ongoing.
[2023-12-12 08:35] LABS: Hematocrit 35.1 % (42.0-52.0); Hemoglobin 11.6 g/dl (14.0-18.0); Mean Corpuscular Hemoglobin 28.9 pg (27.0-33.0); Mean Corpuscular Volume 87.3 fL (80.0-98.0); Mean Platelet Volume 8.8 fL (9.4-12.4); Platelet Count 210 X10*3/uL (160-400); Red Blood Count 4.02 X10*6/uL (4.60-5.80); Red Cell Distribution Width 14.1 % (11.0-16.0); White Blood Count 10.7 X10*3/uL (4.8-10.8)
[2023-12-12 08:52] LABS: Anion Gap 17 (12-20); Blood Urea Nitrogen 43 mg/dL (9-16); Calcium 9.2 mg/dL (8.4-10.2); Carbon Dioxide 21 mmol/L (22-29); Chloride 105 mmol/L (96-108); Creatinine Clr Calc Pharmacy 27.8; Estimated Glomerular Filt Rate 34; Glucose Random 99 mg/dL (60-115); Potassium 4.3 mmol/L (3.3-5.1); Sodium 139 mmol/L (135-145)
[2023-12-12] MEDS: Cholecalciferol (Vitamin D3) 25 MCG TABLET PO (09:44)
[2023-12-12] MEDS: Atorvastatin Calcium 80 MG TABLET PO (09:45)
[2023-12-12] MEDS: 0.9 % Sodium Chloride Flush 3 ML SYRINGE IVFLUSH ×2 (09:45→21:06)
[2023-12-12] MEDS: Cyanocobalamin (Vitamin B-12) 1,000 MCG TABLET 1000 MCG PO (09:45)
[2023-12-12] MEDS: Sodium Bicarbonate 650 MG TABLET PO ×2 (09:45→21:03)
--- NOTE | 2023-12-12 09:56 | P.PNIM_ITS ---
Subjective Subjective Date of Service: 12/12/23 Interval History: f/u on hematuria, sepsis d/t pyelo hematuria resolved and has been voiding overnight developed retention again, and they were not able to insert epps, creatine is rising Physical Exam 2 Vital Signs: Vital Signs: Last Vital Signs Temp 97.6 F 12/12/23 07:41 Pulse 92 12/12/23 07:41 Resp 18 12/12/23 07:41 BP 128/87 12/12/23 07:41 Pulse Ox 97 12/12/23 07:41 O2 Del Method Room Air 12/12/23 07:41 O2 Flow Rate 2 12/11/23 03:41 BMI result Body Mass Index 16.8 Const: Other: General frail , resting comfortably in no acute distress. Neck supple no JVD. CVS regular rate rhythm, Respiratory lungs clear to auscultation, no respiratory distress, no wheeze, no rhonchi. Gastrointestinal abdomen soft, non tender, bowel sounds audible, no guarding , no rigidity. Extremities no edema. Neuro non focal , speech clear. Skin no rash Psych appropriate affect CBI clear urine Objective Data Active Medications Acetaminophen (Acetaminophen 325 Mg Tablet) 650 mg PO Q6H PRN PRN Reason: Pain, Mild (Pain Scale 1-3), fever or headache Last Admin: 12/12/23 02:18 Dose: 650 mg Documented By: TRACY Alprazolam (Alprazolam 0.5 Mg Tablet) 1 mg PO BID PRN PRN Reason: anxiety/restlessness Last Admin: 12/11/23 21:44 Dose: 1 mg Documented By: TRACY Atorvastatin Calcium (Atorvastatin Calcium 80 Mg Tablet) 80 mg PO DAILY [facility] Last Admin: 12/12/23 09:45 Dose: 80 mg Documented By: RAJANI Benzonatate (Benzonatate 100 Mg Capsule) 100 mg PO TID PRN PRN Reason: Cough Calcium Carbonate (Calcium Carbonate 750 Mg Tab.Chew) 750 mg PO Q4H PRN PRN Reason: Heartburn Cyanocobalamin (Cyanocobalamin (Vitamin B-12) 1,000 Mcg Tablet) 1,000 mcg PO DAILY [facility] Last Admin: 12/12/23 09:45 Dose: 1,000 mcg Documented By: RAJANI Piperacillin Sod/Tazobactam (Sod 4.5 gm/ Sodium Chloride) 100 mls @ 200 mls/hr IV Q6H [facility] Last Admin: 12/12/23 09:44 Dose: 200 mls/hr Documented By: RAJANI Lorazepam (Lorazepam 0.5 Mg Tablet) 0.5 mg PO Q6H PRN PRN Reason: Anxiety Last Admin: 12/10/23 17:14 Dose: 0.5 mg Documented By: RABIA Magnesium Hydroxide (Milk Of Magnesia 30 Ml Oral.Susp) 30 ml PO DAILY PRN PRN Reason: Constipation Melatonin (Melatonin 3 Mg Tablet) 6 mg PO BEDTIME PRN PRN Reason: Insomnia Mirtazapine (Mirtazapine 15 Mg Tablet) 15 mg PO BEDTIME [facility] Last Admin: 12/11/23 21:44 Dose: 15 mg Documented By: TRACY Ondansetron HCl (Ondansetron Hcl 4 Mg/2 Ml Vial) 4 mg IVPUSH Q8H PRN PRN Reason: Nausea and Vomiting Paroxetine HCl (Paroxetine Hcl 30 Mg Tablet) 60 mg PO BEDTIME [facility] Last Admin: 12/11/23 21:44 Dose: 60 mg Documented By: TRACY Quetiapine Fumarate (Quetiapine Fumarate 100 Mg Tablet) 100 mg PO BEDTIME [facility] Last Admin: 12/11/23 21:44 Dose: 100 mg Documented By: TRACY Ropinirole HCl (Ropinirole Hcl 1 Mg Tablet) 3 mg PO BEDTIME [facility] Last Admin: 12/11/23 21:44 Dose: 3 mg Documented By: TRACY Sodium Bicarbonate (Sodium Bicarbonate 650 Mg Tablet) 650 mg PO BID [facility] Last Admin: 12/12/23 09:45 Dose: 650 mg Documented By: RAJANI Sodium Chloride (0.9 % Sodium Chloride Flush 3 Ml Syringe) 3 ml IVFLUSH QSHIFT [facility] Last Admin: 12/12/23 09:45 Dose: 3 ml Documented By: RAJANI Vitamin D (Cholecalciferol (Vitamin D3) 25 Mcg Tablet) 25 mcg PO DAILY [facility] Last Admin: 12/12/23 09:44 Dose: 25 mcg Documented By: RAJANI Labs 12/12/23 08:27 12/12/23 08:27 Labs: Laboratory Results - last 24 hr 12/12/23 08:27 MCV 87.3 MCH 28.9 MCHC 33.0 RDW 14.1 Plt Count 210 MPV 8.8 L Absolute Nucleated RBC 0.000 Nucleated RBC % (auto) 0.0 Anion Gap 17 Estim Creat Clear Calc 27.8 Estimated GFR 34 Random Glucose 99 Calcium 9.2 D Assessment and Plan (1) Hematuria: Status: Acute (2) ABLA (acute blood loss anemia): Status: Acute (3) MARKUS (acute kidney injury): Status: Acute Plan 73-year-old male with a PMH significant for?prostate cancer s/p prostatectomy and radiation therapy complicated by radiation proctitis, CAD s/p PCI in 2014, carotid artery stenosis s/p bilateral carotid stenting, hx of cerebral hemorrhage, epilepsy, HLD, HTN, restless leg syndrome, and anxiety who presents to the ED for evaluation right lower lump, chills and diagnosed to have severe sepsis, MARKUS acute blood loss anemia and hematuria. Severe sepsis due to acute pyelonephritis, urine culture lactobacilus and E. coli. 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 and cholestyramine. But as per patient he was later instructed to stop these medications. 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 Uro recommends restarting plavix 48 once bleeding stops HTN--BP within normal, hold meds Mood disorder Continue home meds Moderate protein calorie malnutrition add supplements Full Code DVT Prophylaxis: Mechanical device Pt will require continued inpatient hospitalization for treatment of?MARKUS , severe sepsis, hematuria requiring CBI, IV antibiotics. he is now agreable to go to SNF Quality Stroke Does the patient have a stroke diagnosis?: No VTE Prior VTE?: No VTE Risk Level:: Medical - moderate - high VTE Device Contraindication: N/A - Device Ordered VTE Drug Contraindication: Treatment Not Indicated
[2023-12-12] MEDS: Lactated Ringers 1,000 ML 100 ML IVCONT (10:59)
[2023-12-12 15:40] LABS: Hematocrit 34.4 % (42.0-52.0); Hemoglobin 11.5 g/dl (14.0-18.0); Mean Corpuscular HGB Conc 33.4 g/dl (31.0-36.0); Mean Corpuscular Hemoglobin 29.2 pg (27.0-33.0); Mean Corpuscular Volume 87.3 fL (80.0-98.0); Platelet Count 200 X10*3/uL (160-400); Red Blood Count 3.94 X10*6/uL (4.60-5.80); White Blood Count 13.5 X10*3/uL (4.8-10.8)
[2023-12-12 15:59] LABS: Anion Gap 21 (12-20); Blood Urea Nitrogen 47 mg/dL (9-16); Calcium 8.6 mg/dL (8.4-10.2); Carbon Dioxide 14 mmol/L (22-29); Chloride 106 mmol/L (96-108); Creatinine Clr Calc Pharmacy 21.5; Estimated Glomerular Filt Rate 25; Glucose Random 83 mg/dL (60-115); Potassium 4.5 mmol/L (3.3-5.1); Sodium 136 mmol/L (135-145)
[2023-12-12] MEDS: Lactated Ringers 1,000 ML 999 ML IV (16:03)
[2023-12-12 17:20] LABS: Beta-Hydroxybutyrate 1.15 mmol/L (0.02-0.27)
[2023-12-12 17:25] LABS: ABG Base Excess -4.4 mmol/L; ABG HCO3 16 mmol/L (22-26); ABG pCO2 21 mmHg (32-45); ABG pO2 106 mmHg (83-108)
[2023-12-12] MEDS: Sodium Bicarbonate 8.4% 150 MEQ in Dextrose 5 % 850 ML 100 MEQ IV (17:35)
--- NOTE | 2023-12-12 17:45 | PM.EVENT ---
Event Note Date of Service: 12/13/23 Event Note: Patient throughout the day has not been voiding, serial bladder scan registering 0 to 15 ml, he and blood at the meatus, and he c/o suprapubic pain. repeat bmp from this morning is showing worsening renal function despite IVF with Scr up to 2.54 from 1.99 this morning. Serum bicab has decreased to 14 from 21 this morning, AGAP of 21, pt not diabetic, BS 83, B-Hydroxybtyrate of 1.5 , no confusion. IVF chnaged to D5 with Bicab replacement following discussion with Nephrology. CT of abdomen and Pelvis showed : KIDNEYS AND URETERS: Unchanged bilateral moderate hydronephrosis extending to the bladder. No nephrolithiasis. BLADDER: The bladder is distended with air-fluid level, similar to prior. Again there is high density material layering dependently in the bladder, extending to the level of the prostatic urethra. This appears increased in volume since the prior exam. Again there is a small focus of air in the left lateral soft tissues the base of the bladder in the region of the prostate. Finding discussed with Dr. Evangelista who will be placing Sesay cath. Patient is otherwise hemodynamically stable. Lactic acid level is pending. Time Spent With Patient Time: Total time managing care of this patient today ____ minutes.
[2023-12-12 18:05] LABS: Lactic Acid 0.9 mmol/L (0.5-2.0)
--- NOTE | 2023-12-12 18:27 | PM.UROPN ---
Subjective Subjective Date of Service: 12/12/23 Interval history: ATSP: Hematuria Difficult epps catheter placement Rising Cr Bilateral hydronephrosis s/p XRT for prostate salvage after prostatectomy Unable to place catheter Difficult Epps Placement CPT 22347 Glidewire placement 18 Fr Catheter placed Bladder irrigated for removal of significant clot. Approximately 10 minutes taken for full irrigation. The completion of irrigation catheter bag reattached P.r.n. irrigation with 100 cc for clot Hematuria Bladder Irriation CPT 05986 Physical Exam Vital Signs: Vital Signs: Last Vital Signs Temp 97.8 F 12/12/23 12:00 Pulse 93 12/12/23 12:00 Resp 18 12/12/23 12:00 BP 129/81 12/12/23 12:00 Pulse Ox 96 12/12/23 12:00 O2 Del Method Room Air 12/12/23 12:00 O2 Flow Rate 2 12/11/23 03:41 BMI result Body Mass Index 16.8 Const: General: cooperative, healthy appearing, comfortable and no acute distress Orientation/consciousness: patient oriented x3 HEENT: Face and sinus: Yes normal facial exam Mouth: moist mucous membranes Neck: Neck: Yes normal visual inspection, Yes full ROM and Yes trachea midline Chest: Chest palpation & inspection: normal inspection of the chest Resp: Effort & Inspection: normal respiratory effort, able to speak in complete sentences and no respiratory distress GI: Inspection: Yes normal to inspection Back/Spine/Pelvis: Cervical Spine: normal cervical lordosis Thoracic/Lumbar Spine: thoracic and lumbar spine normal to inspection Skin: General skin exam: no rashes or lesions noted Neuro: General: patient oriented x3, tone normal and moves all extremities Extrem: General: Yes normal to inspection and Yes capillary refill normal Urology Results Labs 12/12/23 15:26 12/12/23 15:26 Labs: Laboratory Results - last 24 hr 12/12/23 12/12/23 12/12/23 08:27 15:26 17:15 WBC 10.7 13.5 H RBC 4.02 L 3.94 L Hgb 11.6 L 11.5 L Hct 35.1 L 34.4 L MCV 87.3 87.3 MCH 28.9 29.2 MCHC 33.0 33.4 RDW 14.1 14.0 Plt Count 210 200 MPV 8.8 L 9.0 L Absolute Nucleated RBC 0.000 0.000 Nucleated RBC % (auto) 0.0 0.0 O2 Saturation 99.0 ABG pH at Pt Temp 7.50 H ABG pCO2 at Pt Temp 21 L ABG pO2 at Pt Temp 106 ABG HCO3 16 L ABG Base Excess (Actual) -4.4 Sodium 139 136 Potassium 4.3 D 4.5 Chloride 105 106 Carbon Dioxide 21 L 14 L Anion Gap 17 21 H BUN 43 H 47 H Creatinine 1.96 H 2.54 H Estim Creat Clear Calc 27.8 21.5 Estimated GFR 34 25 Random Glucose 99 83 Lactic Acid Calcium 9.2 D 8.6 D Beta-Hydroxybutyrate 1.15 H Blood Type B Positive Antibody Screen NEGATIVE 12/12/23 17:44 WBC RBC Hgb Hct MCV MCH MCHC RDW Plt Count MPV Absolute Nucleated RBC Nucleated RBC % (auto) O2 Saturation ABG pH at Pt Temp ABG pCO2 at Pt Temp ABG pO2 at Pt Temp ABG HCO3 ABG Base Excess (Actual) Sodium Potassium Chloride Carbon Dioxide Anion Gap BUN Creatinine Estim Creat Clear Calc Estimated GFR Random Glucose Lactic Acid 0.9 Calcium Beta-Hydroxybutyrate Blood Type Antibody Screen Urology Procedures Catheter Insertion (Urinary) Date of insertion: 12/12/23 Time of insertion: 18:29 Replacement of catheter present on admission: No Reason for placing: Other (Hematuria with Retention) Patient has the following: other (prostatectomy with XRT) Antiseptic solution prep: Povidone-Iodine Catheter type/location: 2-way Urethral Size ([place]): 18 Catheter balloon size (mL): 10 Results: consulted Comment: Difficult catheter placement with irrigation Progress Note: A&P Assessment and plan (1) Hematuria: Status: Acute (2) BNC (bladder neck contracture): Status: Acute (3) Urinary retention: Status: Acute Plan epps placed irrigation performed epps to drainage Time Spent With Patient Time: Total time managing care of this patient today ____ minutes. Progress Note: Quality Stroke Does the patient have a stroke diagnosis?: No
[2023-12-12 18:42] LABS: ABG Refer to POC result
--- NOTE | 2023-12-12 18:56 | PC.NURSE ---
pt seen by Urologist. Sesay cath placed 500mls of bloody urine left in basin, Sesay Cath draining bright red urine. MD Jeffries aware. All other needs met at this time, call vargas within reach.
[2023-12-12] MEDS: rOPINIRole HCL 1 MG TABLET 3 MG PO (21:02)
[2023-12-12] MEDS: PARoxetine HCL 30 MG TABLET 60 MG PO (21:03)
[2023-12-12] MEDS: Mirtazapine 15 MG TABLET PO (21:03)
[2023-12-12] MEDS: Morphine Sulfate 2 MG/ML CARTRIDGE IVPUSH (21:18)
[2023-12-12] MEDS: ondansetron HCL 4 MG/2 ML VIAL IVPUSH (21:24)
[2023-12-12 22:32] LABS: Anion Gap 19 (12-20); Blood Urea Nitrogen 49 mg/dL (9-16); Calcium 8.6 mg/dL (8.4-10.2); Carbon Dioxide 18 mmol/L (22-29); Chloride 104 mmol/L (96-108); Creatinine Clr Calc Pharmacy 20.8; Estimated Glomerular Filt Rate 24; Glucose Random 155 mg/dL (60-115); Potassium 3.7 mmol/L (3.3-5.1); Sodium 137 mmol/L (135-145)
[2023-12-12] MEDS: QUEtiapine Fumarate 100 MG TABLET PO (23:27)
[2023-12-12] MEDS: cefTRIAXone sodium 1 GM in 0.9 % Sodium Chloride 50 ML IV (23:28)
[2023-12-13] VITALS (11 sets, daily range): BP systolic 90–177; BP diastolic 49–70; PULSE 80–109; RESP 16–20; TEMP 36.6–37.5; O2SAT 94–100
[2023-12-13] MEDS: Sodium Bicarbonate 8.4% 150 MEQ in Dextrose 5 % 850 ML 100 MEQ IV (04:17)
[2023-12-13 06:24] LABS: MANUAL DIFF FLAG NO
[2023-12-13 06:33] LABS: Basophils Absolute Auto 0.1 X10*3/uL (0.0-0.2); Basophils Percent Auto 0.5 % (0-2); Eosinophils Absolute Auto 0.2 X10*3/uL (0.0-0.4); Eosinophils Percent Auto 2.3 % (0-4); Hematocrit 30.3 % (42.0-52.0); Imm Gran Abs Auto 0.05 X10*3/uL (0.00-0.03); Imm Gran Pct Auto 0.5 % (0.0-0.4); Mean Corpuscular Hemoglobin 28.4 pg (27.0-33.0); Mean Corpuscular Volume 86.1 fL (80.0-98.0); Mean Platelet Volume 9.2 fL (9.4-12.4); Monocytes Absolute Auto 0.7 X10*3/uL (0.1-1.2); Monocytes Percent Auto 6.7 % (2-11); Neutrophils Absolute Auto 7.8 x10*3/uL (2.0-8.3); Platelet Count 217 X10*3/uL (160-400); Red Blood Count 3.52 X10*6/uL (4.60-5.80); Red Cell Distribution Width 14.5 % (11.0-16.0); White Blood Count 9.7 X10*3/uL (4.8-10.8)
[2023-12-13 07:26] LABS: Anion Gap 15 (12-20); Blood Urea Nitrogen 44 mg/dL (9-16); Calcium 8.6 mg/dL (8.4-10.2); Chloride 101 mmol/L (96-108); Creatinine Clr Calc Pharmacy 23.2; Estimated Glomerular Filt Rate 27; Glucose Random 153 mg/dL (60-115); Potassium 3.6 mmol/L (3.3-5.1); Sodium 138 mmol/L (135-145)
[2023-12-13 07:57] LABS: Carbon Dioxide 26 mmol/L (22-29)
[2023-12-13] MEDS: Atorvastatin Calcium 80 MG TABLET PO (08:20)
[2023-12-13] MEDS: Cyanocobalamin (Vitamin B-12) 1,000 MCG TABLET 1000 MCG PO (08:20)
[2023-12-13] MEDS: Cholecalciferol (Vitamin D3) 25 MCG TABLET PO (08:20)
[2023-12-13] MEDS: Sodium Bicarbonate 650 MG TABLET PO ×2 (08:20→21:44)
--- NOTE | 2023-12-13 09:57 | HO.PM.IMPN ---
Subjective Subjective Date of Service: 12/13/23 Interval History: f/u on hematuria, sepsis d/t pyelo A epps was inserted by uro overnight, has ongoing hematuria requiring frequent irigation renal function and metabolic acidosis is getting better Physical Exam Vital Signs: Vital Signs: Last Vital Signs Temp 97.8 F 12/13/23 08:00 Pulse 95 12/13/23 08:00 Resp 18 12/13/23 08:00 BP 177/70 H 12/13/23 08:00 Pulse Ox 94 12/13/23 08:00 O2 Del Method Room Air 12/13/23 08:00 O2 Flow Rate 2 12/11/23 03:41 BMI result Body Mass Index 16.8 Objective Data Active Medications Acetaminophen (Acetaminophen 325 Mg Tablet) 650 mg PO Q6H PRN PRN Reason: Pain, Mild (Pain Scale 1-3), fever or headache Last Admin: 12/12/23 02:18 Dose: 650 mg Documented By: TRACY Alprazolam (Alprazolam 0.5 Mg Tablet) 1 mg PO BID PRN PRN Reason: anxiety/restlessness Last Admin: 12/11/23 21:44 Dose: 1 mg Documented By: TRACY Atorvastatin Calcium (Atorvastatin Calcium 80 Mg Tablet) 80 mg PO DAILY [facility] Last Admin: 12/13/23 08:20 Dose: 80 mg Documented By: SUMMER Benzonatate (Benzonatate 100 Mg Capsule) 100 mg PO TID PRN PRN Reason: Cough Calcium Carbonate (Calcium Carbonate 750 Mg Tab.Chew) 750 mg PO Q4H PRN PRN Reason: Heartburn Cyanocobalamin (Cyanocobalamin (Vitamin B-12) 1,000 Mcg Tablet) 1,000 mcg PO DAILY [facility] Last Admin: 12/13/23 08:20 Dose: 1,000 mcg Documented By: SUMMER Ceftriaxone Sodium 1 gm/ (Sodium Chloride) 50 mls @ 100 mls/hr IV Q24H [facility] Last Infusion: 12/12/23 23:58 Dose: Infused Documented By: SIMONA Loperamide HCl (Loperamide Hcl 2 Mg Capsule) 2 mg PO Q6H PRN PRN Reason: Diarrhea Lorazepam (Lorazepam 0.5 Mg Tablet) 0.5 mg PO Q6H PRN PRN Reason: Anxiety Last Admin: 12/10/23 17:14 Dose: 0.5 mg Documented By: RABIA Magnesium Hydroxide (Milk Of Magnesia 30 Ml Oral.Susp) 30 ml PO DAILY PRN PRN Reason: Constipation Melatonin (Melatonin 3 Mg Tablet) 6 mg PO BEDTIME PRN PRN Reason: Insomnia Mirtazapine (Mirtazapine 15 Mg Tablet) 15 mg PO BEDTIME [facility] Last Admin: 12/12/23 21:03 Dose: 15 mg Documented By: SIMONA Morphine Sulfate (Morphine Sulfate 2 Mg/Ml Cartridge) 2 mg IVPUSH Q4H PRN; Protocol PRN Reason: Pain, Severe (Pain Scale 7-10) Last Admin: 12/12/23 21:18 Dose: 2 mg Documented By: SIMONA Ondansetron HCl (Ondansetron Hcl 4 Mg/2 Ml Vial) 4 mg IVPUSH Q8H PRN PRN Reason: Nausea and Vomiting Last Admin: 12/12/23 21:24 Dose: 4 mg Documented By: SIMONA Comments: Dry heaving/nausea Paroxetine HCl (Paroxetine Hcl 30 Mg Tablet) 60 mg PO BEDTIME [facility] Last Admin: 12/12/23 21:03 Dose: 60 mg Documented By: SIMONA Quetiapine Fumarate (Quetiapine Fumarate 100 Mg Tablet) 100 mg PO BEDTIME [facility] Last Admin: 12/12/23 23:27 Dose: 100 mg Documented By: SIMONA Ropinirole HCl (Ropinirole Hcl 1 Mg Tablet) 3 mg PO BEDTIME [facility] Last Admin: 12/12/23 21:02 Dose: 3 mg Documented By: SIMONA Sodium Bicarbonate (Sodium Bicarbonate 650 Mg Tablet) 650 mg PO BID [facility] Last Admin: 12/13/23 08:20 Dose: 650 mg Documented By: SUMMER Sodium Chloride (0.9 % Sodium Chloride Flush 3 Ml Syringe) 3 [facility] Last Admin: 12/13/23 08:24 Dose: Not Given Documented By: SUMMER Non-Admin Reason: IV Running Vitamin D (Cholecalciferol (Vitamin D3) 25 Mcg Tablet) 25 mcg PO DAILY [facility] Last Admin: 12/13/23 08:20 Dose: 25 mcg Documented By: SUMMER Labs 12/13/23 05:51 12/13/23 05:51 Labs: Laboratory Results - last 24 hr 12/12/23 12/12/23 12/12/23 15:26 17:15 17:44 MCV 87.3 MCH 29.2 MCHC 33.4 RDW 14.0 Plt Count 200 MPV 9.0 L Immature Gran % (Auto) Neut % (Auto) Lymph % (Auto) Bath % (Auto) Eos % (Auto) Baso % (Auto) Lymph # (Auto) Bath # (Auto) Eos # (Auto) Baso # (Auto) Abs Immat Gran (auto) Absolute Neuts (auto) Absolute Nucleated RBC 0.000 Nucleated RBC % (auto) 0.0 O2 Saturation 99.0 ABG pH at Pt Temp 7.50 H ABG pCO2 at Pt Temp 21 L ABG pO2 at Pt Temp 106 ABG HCO3 16 L ABG Base Excess (Actual) -4.4 Anion Gap 21 H Estim Creat Clear Calc 21.5 Estimated GFR 25 Random Glucose 83 Lactic Acid 0.9 Calcium 8.6 D Beta-Hydroxybutyrate 1.15 H Blood Type B Positive Antibody Screen NEGATIVE 12/12/23 12/13/23 22:10 05:51 MCV 86.1 MCH 28.4 MCHC 33.0 RDW 14.5 Plt Count 217 MPV 9.2 L Immature Gran % (Auto) 0.5 H Neut % (Auto) 80.0 H Lymph % (Auto) 10.0 L Bath % (Auto) 6.7 Eos % (Auto) 2.3 Baso % (Auto) 0.5 Lymph # (Auto) 1.0 L Bath # (Auto) 0.7 Eos # (Auto) 0.2 Baso # (Auto) 0.1 Abs Immat Gran (auto) 0.05 H Absolute Neuts (auto) 7.8 Absolute Nucleated RBC 0.000 Nucleated RBC % (auto) 0.0 O2 Saturation ABG pH at Pt Temp ABG pCO2 at Pt Temp ABG pO2 at Pt Temp ABG HCO3 ABG Base Excess (Actual) Anion Gap 19 15 Estim Creat Clear Calc 20.8 23.2 Estimated GFR 24 27 Random Glucose 155 H 153 H Lactic Acid Calcium 8.6 8.6 Beta-Hydroxybutyrate Blood Type Antibody Screen Assessment and Plan (1) Hematuria: Status: Acute (2) ABLA (acute blood loss anemia): Status: Acute (3) MARKUS (acute kidney injury): Status: Acute Plan 73-year-old male with a PMH significant for?prostate cancer s/p prostatectomy and radiation therapy complicated by radiation proctitis, CAD s/p PCI in 2014, carotid artery stenosis s/p bilateral carotid stenting, hx of cerebral hemorrhage, epilepsy, HLD, HTN, restless leg syndrome, and anxiety who presents to the ED for evaluation right lower lump, chills and diagnosed to have severe sepsis, MARKUS acute blood loss anemia and hematuria. Severe sepsis due to acute pyelonephritis, urine culture lactobacilus and E. coli. sepsis resolved -zosyn since admssion. Stopped 12/11 -Ceftriaxone added 12/11 Acute kidney injury--likely from obstructive uropathy -epps inserted by uro 12/11 -renal function is better -CT show bilateral hydro mild metabolic acidosis, on chronic metabolic acidosis, likely from renal failure, corrected with bica Acute blood loss anemia d/t hematuria -s/p transfusion 2 units of 12/08 with good effect, h/h now Hematuria likely due to radiation cystitis (history of prostate cancer status post radiation) -had CBI earlier, holding ASA, Plavix for now, possibly cystoscopy today Chronic diarrhea No recurrent diarrhea, had normal bowel movement has been incontinent of urine and stool x several months CT of abdomen and pelvis showed generalized rectal wall thickening surrounding the stool ball, with surrounding fat stranding consistent with proctitis , similar findings noted on prior imaging studies Previously seen by GI they recommended mesalamine by mouth t.i.d. and cholestyramine. But as per patient he was later instructed to stop these medications. 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 CT 12/11:Moderate stool burden. Otherwise the large and small bowel are normal in caliber. Rectal wall thickening and perirectal inflammatory fat stranding. -bowel regimen CAD/history of bilateral carotid stenting aspirin, Plavix. Uro recommends restarting plavix 48 once bleeding stops HTN--BP increasing Mood disorder Continue home meds Moderate protein calorie malnutrition add supplements Full Code DVT Prophylaxis: Mechanical device Pt will require continued inpatient hospitalization for treatment of?MARKUS , severe sepsis, hematuria requiring CBI, IV antibiotics. he is now agreable to go to SNF called daughter and no answer I called daughter for update around 3: 07, no answer Quality Stroke Does the patient have a stroke diagnosis?: No VTE Prior VTE?: No VTE Risk Level:: Medical - moderate - high VTE Device Contraindication: N/A - Device Ordered VTE Drug Contraindication: Treatment Not Indicated
--- NOTE | 2023-12-13 10:25 | MHC.CM.PN ---
Per ROUNDS discussion, Patient is not yet medically cleared for dc (Hemturia, Surgery today); PT is recommending home with services and CM will follow.
--- NOTE | 2023-12-13 10:40 | MHC.CLN ---
F/U PT IS MODERATELY MALNOURISHED PO INTAKE VARIABLE RANGING FROM 25-100% DIET RX: CURRENTLY NPO WHEN DIET TO ADVANCE; RECOMMEND RE-STARTING ENSURE TID PROVIDES 1050KCALS, 60G PROTEIN FOLLOWING FOR DIET ADVANCEMENT
--- NOTE | 2023-12-13 10:58 | PM.CNNEP ---
History of Present Illness Reason for Consult Consult date: 12/13/23 Reason for consult: MARKUS Chief Complaint Chief complaint: Acute blood loss anemia/MARKUS/hematuria History of Present Illness Narrative: 73-year-old male with H/O ?prostate cancer s/p prostatectomy and radiation therapy complicated by radiation proctitis, CAD s/p PCI in 2014, carotid artery stenosis s/p bilateral carotid stenting, hx of cerebral hemorrhage as well ass hypertension who presented to the ER who was diagnosed to have severe sepsis, His sepsis was treated with antibiotics. He developed MARKUS with Oliguria,hematuria and metabolic acidosis. Imaging showed him to have B/L hydro. Urology put in a catheter yesterday .He was also treated with IV NaHCO3 and supportive care. He is due to go to OR today. 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 Degenerative disc disease, cervical Impaired fasting glucose Pure hypercholesterolemia Bilateral carotid artery stenosis Benign essential hypertension Family History Family History Father Cancer Mother Chronic mental illness Son In good health Daughter In good health Surgical History Surgical History Hx of colonoscopy History of common carotid artery stent placement H/O radical prostatectomy History of inguinal hernia repair Social History Social History Household Members: Children Housing: House Do you presently have visiting nurse or other home services: No Alcohol intake: never Patient Tobacco Use Status: Former Tobacco user Tobacco use type: Cigarette Smoked in Last 30 Days: No e-Cigarette/Vaping Use: Never Used Second Hand Smoke Exposure: No Use of substances other than those prescribed or required for medical reasons: Yes Substance Use Type: Marijuana Substance Use Frequency: Daily Last Used Substance: Hours (ago) Currently Displaying Signs/Symptoms of Drug Intoxication Withdrawal: No Any prior treatment program specific to substance use: No Have you been hit, kicked, punched, or otherwise hurt by someone within the past year? If so, by whom?: No Do you feel safe in your current relationship?: No Current Relationship Is there a partner from a previous relationship who is making you feel unsafe now?: No Are you made to feel afraid or neglected: No [employer] Healthcare Practices: Sikhism Advance Directives: Yes Advance Directives on File: Yes Advance Directives Date on File: 12/08/22 Do you have a plan to hurt others: No Plan Recently lost weight without trying: No How much weight loss: Not applicable Eating poorly because of decreased appetite: No Nutrition screen score: 0 Nutrition Risks: No Nutritional Risk Poor oral hygiene: No service: No Current occupational status: retired Cognitive needs: No Hearing needs: No Vision needs: Yes Meds Allergies Allergy/AdvReac Type Severity Reaction Status Date / Time zolpidem AdvReac Unknown sleepwalkin Verified 12/04/23 12:03 g Active Medications: Current Medications Acetaminophen (Acetaminophen 325 Mg Tablet) 650 mg PO Q6H PRN PRN Reason: Pain, Mild (Pain Scale 1-3), fever or headache Last Admin: 12/12/23 02:18 Dose: 650 mg Alprazolam (Alprazolam 0.5 Mg Tablet) 1 mg PO BID PRN PRN Reason: anxiety/restlessness Last Admin: 12/11/23 21:44 Dose: 1 mg Amlodipine Besylate (Amlodipine Besylate 5 Mg Tablet) 5 mg PO DAILY [facility]; Protocol Atorvastatin Calcium (Atorvastatin Calcium 80 Mg Tablet) 80 mg PO DAILY [facility] Last Admin: 12/13/23 08:20 Dose: 80 mg Benzonatate (Benzonatate 100 Mg Capsule) 100 mg PO TID PRN PRN Reason: Cough Calcium Carbonate (Calcium Carbonate 750 Mg Tab.Chew) 750 mg PO Q4H PRN PRN Reason: Heartburn Cyanocobalamin (Cyanocobalamin (Vitamin B-12) 1,000 Mcg Tablet) 1,000 mcg PO DAILY [facility] Last Admin: 12/13/23 08:20 Dose: 1,000 mcg Ceftriaxone Sodium 1 gm/ (Sodium Chloride) 50 mls @ 100 mls/hr IV Q24H [facility] Last Infusion: 12/12/23 23:58 Dose: Infused Lactated Ringer's (Lr) 1,000 mls @ 100 mls/hr IVCONT .Q10H [facility] Loperamide HCl (Loperamide Hcl 2 Mg Capsule) 2 mg PO Q6H PRN PRN Reason: Diarrhea Lorazepam (Lorazepam 0.5 Mg Tablet) 0.5 mg PO Q6H PRN PRN Reason: Anxiety Last Admin: 12/10/23 17:14 Dose: 0.5 mg Magnesium Hydroxide (Milk Of Magnesia 30 Ml Oral.Susp) 30 ml PO DAILY PRN PRN Reason: Constipation Melatonin (Melatonin 3 Mg Tablet) 6 mg PO BEDTIME PRN PRN Reason: Insomnia Mirtazapine (Mirtazapine 15 Mg Tablet) 15 mg PO BEDTIME [facility] Last Admin: 12/12/23 21:03 Dose: 15 mg Morphine Sulfate (Morphine Sulfate 2 Mg/Ml Cartridge) 2 mg IVPUSH Q4H PRN; Protocol PRN Reason: Pain, Severe (Pain Scale 7-10) Last Admin: 12/12/23 21:18 Dose: 2 mg Ondansetron HCl (Ondansetron Hcl 4 Mg/2 Ml Vial) 4 mg IVPUSH Q8H PRN PRN Reason: Nausea and Vomiting Last Admin: 12/12/23 21:24 Dose: 4 mg Paroxetine HCl (Paroxetine Hcl 30 Mg Tablet) 60 mg PO BEDTIME [facility] Last Admin: 12/12/23 21:03 Dose: 60 mg Quetiapine Fumarate (Quetiapine Fumarate 100 Mg Tablet) 100 mg PO BEDTIME [facility] Last Admin: 12/12/23 23:27 Dose: 100 mg Ropinirole HCl (Ropinirole Hcl 1 Mg Tablet) 3 mg PO BEDTIME [facility] Last Admin: 12/12/23 21:02 Dose: 3 mg Sodium Bicarbonate (Sodium Bicarbonate 650 Mg Tablet) 650 mg PO BID [facility] Last Admin: 12/13/23 08:20 Dose: 650 mg Sodium Chloride (0.9 % Sodium Chloride Flush 3 Ml Syringe) 3 ml IVFLUSH QSHIFT [facility] Last Admin: 12/13/23 08:24 Dose: Not Given Vitamin D (Cholecalciferol (Vitamin D3) 25 Mcg Tablet) 25 mcg PO DAILY [facility] Last Admin: 12/13/23 08:20 Dose: 25 mcg Home Medications ?Medication ?Instructions ?Recorded ?Confirmed ?Last Taken ?Type cholecalciferol (vitamin D3) 25 25 mcg PO DAILY 12/01/22 12/04/23 12/02/23 History mcg (1,000 unit) tablet cyanocobalamin (vitamin B-12) 1,000 mcg PO DAILY 12/01/22 12/04/23 12/02/23 History 1,000 mcg tablet [id number] 300 mcg-K 60 1 tab PO DAILY 12/01/22 12/04/23 12/02/23 History mcg-lycop 600 mcg-lutein 300 mcg tablet (Centrum Silver Men) aspirin 81 mg tablet,delayed 81 mg PO DAILY 02/19/23 12/04/23 12/02/23 History release (Adult Low Dose Aspirin) paroxetine HCl 30 mg tablet 60 mg PO BEDTIME 07/28/23 12/04/23 12/02/23 History lisinopril 20 mg tablet 20 mg PO DAILY 12/04/23 12/04/23 12/02/23 History Physical Exam Vital Signs: Last Vital Signs Temp 97.8 F 12/13/23 10:34 Pulse 96 12/13/23 10:34 Resp 18 12/13/23 10:34 BP 111/55 L 12/13/23 10:34 Pulse Ox 95 12/13/23 10:34 O2 Del Method Room Air 12/13/23 10:34 O2 Flow Rate 2 12/11/23 03:41 BMI result Body Mass Index 16.8 Const General: no acute distress Orientation/consciousness: patient oriented x3 Eyes EOM: EOMs intact bilaterally Neck Neck: Yes supple Resp Auscultation: diminished lung sounds Cardio Rate: regular rate GI Palpation (GI): Soft to palpation Neuro General: patient oriented x3 Results Lab Results 12/13/23 05:51 12/13/23 05:51 Lab results: Chemistry 12/12/23 12/12/23 12/12/23 08:27 15:26 22:10 Sodium 139 136 137 Potassium 4.3 D 4.5 3.7 Carbon Dioxide 21 L 14 L 18 L BUN 43 H 47 H 49 H Creatinine 1.96 H 2.54 H 2.62 H Calcium 9.2 D 8.6 D 8.6 12/13/23 05:51 Sodium 138 Potassium 3.6 Carbon Dioxide 26 BUN 44 H Creatinine 2.35 H Calcium 8.6 Hematology 12/12/23 12/12/23 12/13/23 08:27 15:26 05:51 WBC 10.7 13.5 H 9.7 Hgb 11.6 L 11.5 L 10.0 L Plt Count 210 200 217 Assessment and Plan (1) MARKUS (acute kidney injury): Status: Acute Plan MARKUS due to obstructive Uropathy Imaging confirmed obstruction S/P Sesay catheter insertion UO better; For OR today Beta hydroxy butyrate was high Lactate normal; Serum bicarb normalized Shall D/C IV NaHCO3; Could start LR No reason to supsect GN/AIN C/W rest of current management for now Procedures Date of Service Date of Service: 12/13/23
[2023-12-13] MEDS: Lactated Ringers 1,000 ML 100 ML IVCONT (11:12)
--- NOTE | 2023-12-13 15:16 | PC.NURSE ---
Dr Beebe speaking with patient at bedside. Pt refusing to remove upper denture. Pt states pt very difficult to remove d/t adhesive he uses. Anes agrees to allow pt to keep in upper denture.
--- NOTE | 2023-12-13 15:25 | MHC.SHP ---
Pre-Procedural Eval Section A - 24 Hr Update-Section A only Date of Service: 12/13/23 The patient is an INPATIENT: Yes Changes since office visit: No Cold of Flu in the past 2 weeks, No New Medical Problems, No Changes in Medication and No Patient answered all questions The patient has been examined within 24 hours of the surgical procedure. The History & Physical has been completed within 30 days and I have reviewed it.: Yes Section B - Complete if H&P > 30 days Chief Complaint: Acute blood loss anemia/MARKUS/hematuria Details of Present Illness: Cystoscopy, fulguration, bilateral retrograde, bilateral stent placement Allergies: Allergies Allergy/AdvReac Type Severity Reaction Status Date / Time zolpidem AdvReac Unknown sleepwalkin Verified 12/04/23 12:03 g Review of Systems Sugical H&P ROS: Negative: Constitution, Cardiovascular, Respiratory, Neurological, Psychiatric, Hem-Onc, Allergic/Immunologic, Gastrointestinal, Genitourinary, Musculoskeletal, Integumentary, Endocrine and Eyes/Ears/Nose/Throat Exam Surgical H&P Exam: Normal: HEENT, Normal: Heart, Normal: Lungs, Normal: Extremities, Normal: Abdomen, Normal: Skin and Normal: Neurological Plan Diagnosis/Plan: Unchanged I have reviewed the history and physical and performed a pertinent physical examination on my patient. No changes have occurred unless specified. Time Spent With Patient Time: Total time managing care of this patient today ____ minutes.
--- NOTE | 2023-12-13 15:53 | HO.ANESPROP2 ---
HPI - Anesthesia Eval Consult details Narrative: 73 yo M presenting for Cystoscopy, Ureteroroscopy, Retro, Laser, clot evacuation, bladder fulgeration, stent placement. Admitted with hematuria and acute blood loss anemia. PMF Active Problems Active Problems: All Active Problems Urinary retention (Acute) BNC (bladder neck contracture) (Acute) Hematuria (Acute) ABLA (acute blood loss anemia) (Acute) MARKUS (acute kidney injury) (Acute) Acidosis, lactic (Acute) Clostridioides difficile diarrhea (Acute) S/P cardiac catheterization (Acute) Acute anemia (Acute) Insomnia (Acute) Constipation (Acute) Tubular adenoma (Acute) Anal discharge (Acute) Encounter for long-term (current) use of antiplatelets/antithrombotics (Acute) Diverticulosis of colon (Acute) Perianal lesion (Acute) Perianal infection (Acute) Epilepsy (Acute) Depression (Acute) Anxiety (Acute) Prostate cancer (Acute) Restless legs syndrome (Acute) Radiation colitis (Acute) Degenerative disc disease, cervical (Acute) Impaired fasting glucose (Acute) Pure hypercholesterolemia (Acute) Bilateral carotid artery stenosis (Acute) Benign essential hypertension (Acute) Past Medical History Medical History Coronary artery disease Radiation proctitis Abnormal stress test Unstable angina Chest pain Elevated troponin I level Multiple falls Positive colorectal cancer screening using Cologuard test Anal discharge Depression Anxiety Prostate cancer Restless legs syndrome Epilepsy 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 Degenerative disc disease, cervical Impaired fasting glucose Pure hypercholesterolemia Bilateral carotid artery stenosis Benign essential hypertension Family History Family History Father Cancer Mother Chronic mental illness Son In good health Daughter In good health Family history of problems with anesthesia: No Surgical History Surgical History Hx of colonoscopy History of common carotid artery stent placement H/O radical prostatectomy History of inguinal hernia repair History of Problems with Anesthesia: No Social History Social History Household Members: Children Housing: House Do you presently have visiting nurse or other home services: No Alcohol intake: never Patient Tobacco Use Status: Former Tobacco user Tobacco use type: Cigarette Smoked in Last 30 Days: No e-Cigarette/Vaping Use: Never Used Second Hand Smoke Exposure: No Use of substances other than those prescribed or required for medical reasons: Yes Substance Use Type: Marijuana Substance Use Frequency: Daily Last Used Substance: Hours (ago) Currently Displaying Signs/Symptoms of Drug Intoxication Withdrawal: No Any prior treatment program specific to substance use: No Have you been hit, kicked, punched, or otherwise hurt by someone within the past year? If so, by whom?: No Do you feel safe in your current relationship?: No Current Relationship Is there a partner from a previous relationship who is making you feel unsafe now?: No Are you made to feel afraid or neglected: No Anabaptism Healthcare Practices: Worship Are you DNR?: No Advance Directives: Yes Advance Directives on File: Yes Advance Directives Date on File: 12/08/22 Do you have a plan to hurt others: No Plan Recently lost weight without trying: No How much weight loss: Not applicable Eating poorly because of decreased appetite: No Nutrition screen score: 0 Nutrition Risks: No Nutritional Risk Poor oral hygiene: No service: No Current occupational status: retired Cognitive needs: No Hearing needs: No Vision needs: Yes Meds Allergies Allergy/AdvReac Type Severity Reaction Status Date / Time zolpidem AdvReac Unknown sleepwalkin Verified 12/04/23 12:03 g Active Medications: Current Medications Acetaminophen (Acetaminophen 325 Mg Tablet) 650 mg PO Q6H PRN PRN Reason: Pain, Mild (Pain Scale 1-3), fever or headache Last Admin: 12/12/23 02:18 Dose: 650 mg Alprazolam (Alprazolam 0.5 Mg Tablet) 1 mg PO BID PRN PRN Reason: anxiety/restlessness Last Admin: 12/11/23 21:44 Dose: 1 mg Amlodipine Besylate (Amlodipine Besylate 5 Mg Tablet) 5 mg PO DAILY HERMINIO; Protocol Last Admin: 12/13/23 11:26 Dose: Not Given Atorvastatin Calcium (Atorvastatin Calcium 80 Mg Tablet) 80 mg PO DAILY [facility] Last Admin: 12/13/23 08:20 Dose: 80 mg Benzonatate (Benzonatate 100 Mg Capsule) 100 mg PO TID PRN PRN Reason: Cough Calcium Carbonate (Calcium Carbonate 750 Mg Tab.Chew) 750 mg PO Q4H PRN PRN Reason: Heartburn Cyanocobalamin (Cyanocobalamin (Vitamin B-12) 1,000 Mcg Tablet) 1,000 mcg PO DAILY HERMINIO Last Admin: 12/13/23 08:20 Dose: 1,000 mcg Ceftriaxone Sodium 1 gm/ (Sodium Chloride) 50 mls @ 100 mls/hr IV Q24H HERMINIO Last Infusion: 12/12/23 23:58 Dose: Infused Lactated Ringer's (Lr) 1,000 mls @ 100 mls/hr IVCONT .Q10H HERMINIO Last Admin: 12/13/23 11:12 Dose: 100 mls/hr Loperamide HCl (Loperamide Hcl 2 Mg Capsule) 2 mg PO Q6H PRN PRN Reason: Diarrhea Lorazepam (Lorazepam 0.5 Mg Tablet) 0.5 mg PO Q6H PRN PRN Reason: Anxiety Last Admin: 12/10/23 17:14 Dose: 0.5 mg Magnesium Hydroxide (Milk Of Magnesia 30 Ml Oral.Susp) 30 ml PO DAILY PRN PRN Reason: Constipation Melatonin (Melatonin 3 Mg Tablet) 6 mg PO BEDTIME PRN PRN Reason: Insomnia Mirtazapine (Mirtazapine 15 Mg Tablet) 15 mg PO BEDTIME HERMINIO Last Admin: 12/12/23 21:03 Dose: 15 mg Morphine Sulfate (Morphine Sulfate 2 Mg/Ml Cartridge) 2 mg IVPUSH Q4H PRN; Protocol PRN Reason: Pain, Severe (Pain Scale 7-10) Last Admin: 12/12/23 21:18 Dose: 2 mg Ondansetron HCl (Ondansetron Hcl 4 Mg/2 Ml Vial) 4 mg IVPUSH Q8H PRN PRN Reason: Nausea and Vomiting Last Admin: 12/12/23 21:24 Dose: 4 mg Paroxetine HCl (Paroxetine Hcl 30 Mg Tablet) 60 mg PO BEDTIME HERMINIO Last Admin: 12/12/23 21:03 Dose: 60 mg Quetiapine Fumarate (Quetiapine Fumarate 100 Mg Tablet) 100 mg PO BEDTIME HERMINIO Last Admin: 12/12/23 23:27 Dose: 100 mg Ropinirole HCl (Ropinirole Hcl 1 Mg Tablet) 3 mg PO BEDTIME HERMINIO Last Admin: 12/12/23 21:02 Dose: 3 mg Sodium Bicarbonate (Sodium Bicarbonate 650 Mg Tablet) 650 mg PO BID HERMINIO Last Admin: 12/13/23 08:20 Dose: 650 mg Sodium Chloride (0.9 % Sodium Chloride Flush 3 Ml Syringe) 3 ml IVFLUSH QSHIFT [facility] Last Admin: 12/13/23 08:24 Dose: Not Given Vitamin D (Cholecalciferol (Vitamin D3) 25 Mcg Tablet) 25 mcg PO DAILY [facility] Last Admin: 12/13/23 08:20 Dose: 25 mcg Home Medications ?Medication ?Instructions ?Recorded ?Confirmed ?Last Taken ?Type cholecalciferol (vitamin D3) 25 25 mcg PO DAILY 12/01/22 12/04/23 12/02/23 History mcg (1,000 unit) tablet cyanocobalamin (vitamin B-12) 1,000 mcg PO DAILY 12/01/22 12/04/23 12/02/23 History 1,000 mcg tablet kyavpypr-dm-amiea 300 mcg-K 60 1 tab PO DAILY 12/01/22 12/04/23 12/02/23 History mcg-lycop 600 mcg-lutein 300 mcg tablet (Centrum Silver Men) aspirin 81 mg tablet,delayed 81 mg PO DAILY 02/19/23 12/04/23 12/02/23 History release (Adult Low Dose Aspirin) paroxetine HCl 30 mg tablet 60 mg PO BEDTIME 07/28/23 12/04/23 12/02/23 History lisinopril 20 mg tablet 20 mg PO DAILY 12/04/23 12/04/23 12/02/23 History Exam Exam Date and Time: December 13, 2023 152 Height,Weight and Vital Signs: Height 6 ft 1 in Weight 57.9 kg Last Vital Signs Temp 99.3 F 12/13/23 14:41 Pulse 100 12/13/23 14:41 Resp 16 12/13/23 14:41 BP 123/64 12/13/23 14:41 Pulse Ox 95 12/13/23 14:41 O2 Del Method Room Air 12/13/23 14:41 O2 Flow Rate 2 12/11/23 03:41 Pertinent Lab Results Pertinent Lab Results: Laboratory Tests 12/04/23 12/04/23 12/04/23 13:21 13:53 13:55 WBC RBC Hgb Hct MCV MCH MCHC RDW Plt Count MPV Immature Gran % (Auto) Neut % (Auto) Lymph % (Auto) Hendricks % (Auto) Eos % (Auto) Baso % (Auto) Lymph # (Auto) Hendricks # (Auto) Eos # (Auto) Baso # (Auto) Abs Immat Gran (auto) Absolute Neuts (auto) Absolute Nucleated RBC Nucleated RBC % (auto) Hold Purple Top PT INR O2 Saturation ABG pH at Pt Temp ABG pCO2 at Pt Temp ABG pO2 at Pt Temp ABG HCO3 ABG Base Excess (Actual) VBG pH 7.28 L VBG pCO2 40 VBG pO2 32 VBG HCO3 19 L VBG O2 Saturation 40.0 VBG Base Excess -6.5 Sodium Potassium Chloride Carbon Dioxide Anion Gap BUN Creatinine Estim Creat Clear Calc Estimated GFR Random Glucose Lactic Acid Lactic Acid F/U @ 2Hr Lactic Acid F/U @ 4Hr Calcium Magnesium Total Bilirubin Direct Bilirubin AST ALT Alkaline Phosphatase Troponin I High Sens C-Reactive Protein B-Natriuretic Peptide Total Protein Albumin Lipase Beta-Hydroxybutyrate Urine Color Urine Appearance Urine pH Ur Specific [place] Urine Protein Urine Glucose (UA) Urine Ketones Urine Blood Urine Nitrite Ur Leukocyte Esterase Urine RBC Urine WBC Ur Squamous Epith Cells Urine Bacteria Hyaline Casts Stool Occult Blood Influenza Type A (PCR) NEGATIVE Influenza Type B (PCR) NEGATIVE RSV RNA Qual (PCR) NEGATIVE SARS-CoV-2 RNA (RT-PCR) NEGATIVE Blood Type B Positive Antibody Screen NEGATIVE Crossmatch 12/04/23 12/04/23 12/04/23 13:56 15:21 16:21 WBC 13.7 H RBC 3.01 L D Hgb 8.6 L D Hct 27.0 L D MCV 89.7 MCH 28.6 MCHC 31.9 RDW 14.6 Plt Count 246 MPV 8.7 L Immature Gran % (Auto) 0.3 Neut % (Auto) 82.1 H Lymph % (Auto) 9.7 L Hendricks % (Auto) 6.6 Eos % (Auto) 1.0 Baso % (Auto) 0.3 Lymph # (Auto) 1.3 Hendricks # (Auto) 0.9 Eos # (Auto) 0.1 Baso # (Auto) 0.0 Abs Immat Gran (auto) 0.04 H Absolute Neuts (auto) 11.3 H Absolute Nucleated RBC 0.000 Nucleated RBC % (auto) 0.0 Hold Purple Top PT 13.4 H D INR 1.1 O2 Saturation ABG pH at Pt Temp ABG pCO2 at Pt Temp ABG pO2 at Pt Temp ABG HCO3 ABG Base Excess (Actual) VBG pH VBG pCO2 VBG pO2 VBG HCO3 VBG O2 Saturation VBG Base Excess Sodium 141 Potassium 4.5 Chloride 112 H Carbon Dioxide 18 L Anion Gap 16 BUN 43 H Creatinine 2.76 H Estim Creat Clear Calc 19.5 Estimated GFR 23 Random Glucose 94 Lactic Acid 2.2 H* Lactic Acid F/U @ 2Hr Lactic Acid F/U @ 4Hr Calcium 8.0 L D Magnesium 2.1 Total Bilirubin 0.4 Direct Bilirubin 0.2 AST 11 ALT 7 Alkaline Phosphatase 99 Troponin I High Sens 9.0 C-Reactive Protein 22.43 H B-Natriuretic Peptide 60 Total Protein 5.7 L Albumin 3.1 L Lipase 26 Beta-Hydroxybutyrate Urine Color RED Urine Appearance Turbid Urine pH 7.5 Ur Specific [place] 1.020 Urine Protein 300 (3+) H Urine Glucose (UA) Negative Urine Ketones Trace Urine Blood Large (3+) H Urine Nitrite Positive H Ur Leukocyte Esterase Moderate (2+) H Urine RBC >20 H Urine WBC 21-50 Ur Squamous Epith Cells 0-2 Urine Bacteria 4+ Hyaline Casts 0-2 Stool Occult Blood POSITIVE Influenza Type A (PCR) Influenza Type B (PCR) RSV RNA Qual (PCR) SARS-CoV-2 RNA (RT-PCR) Blood Type Antibody Screen Crossmatch 12/04/23 12/04/23 12/05/23 16:38 19:10 07:47 WBC 12.9 H 10.0 RBC 3.28 L 3.11 L Hgb 9.3 L 8.6 L Hct 30.8 L 28.3 L MCV 93.9 91.0 MCH 28.4 27.7 MCHC 30.2 L 30.4 L RDW 14.6 14.6 Plt Count 236 216 MPV 8.7 L 9.0 L Immature Gran % (Auto) Neut % (Auto) Lymph % (Auto) Hendricks % (Auto) Eos % (Auto) Baso % (Auto) Lymph # (Auto) [place] # (Auto) Eos # (Auto) Baso # (Auto) Abs Immat Gran (auto) Absolute Neuts (auto) Absolute Nucleated RBC 0.000 0.000 Nucleated RBC % (auto) 0.0 0.0 Hold Purple Top PT INR O2 Saturation ABG pH at Pt Temp ABG pCO2 at Pt Temp ABG pO2 at Pt Temp ABG HCO3 ABG Base Excess (Actual) VBG pH VBG pCO2 VBG pO2 VBG HCO3 VBG O2 Saturation VBG Base Excess Sodium 139 Potassium 4.4 Chloride 113 H Carbon Dioxide 16 L Anion Gap 14 BUN 35 H Creatinine 1.99 H Estim Creat Clear Calc 27.4 Estimated GFR 33 Random Glucose 89 Lactic Acid Lactic Acid F/U @ 2Hr 3.6 H* Lactic Acid F/U @ 4Hr 1.2 Calcium 8.7 D Magnesium Total Bilirubin Direct Bilirubin AST ALT Alkaline Phosphatase Troponin I High Sens C-Reactive Protein B-Natriuretic Peptide Total Protein Albumin Lipase Beta-Hydroxybutyrate Urine Color Urine Appearance Urine pH Ur Specific [place] Urine Protein Urine Glucose (UA) Urine Ketones Urine Blood Urine Nitrite Ur Leukocyte Esterase Urine RBC Urine WBC Ur Squamous Epith Cells Urine Bacteria Hyaline Casts Stool Occult Blood Influenza Type A (PCR) Influenza Type B (PCR) RSV RNA Qual (PCR) SARS-CoV-2 RNA (RT-PCR) Blood Type Antibody Screen Crossmatch 12/06/23 12/07/23 12/08/23 06:46 05:58 05:56 WBC 6.8 6.9 8.1 RBC 3.02 L 2.85 L 3.03 L Hgb 8.4 L 8.0 L 8.3 L Hct 26.9 L 25.0 L 26.4 L MCV 89.1 87.7 87.1 MCH 27.8 28.1 27.4 MCHC 31.2 32.0 31.4 RDW 14.0 13.7 13.7 Plt Count 223 243 265 MPV 8.8 L 8.8 L 8.8 L Immature Gran % (Auto) Neut % (Auto) Lymph % (Auto) Hendricks % (Auto) Eos % (Auto) Baso % (Auto) Lymph # (Auto) Hendricks # (Auto) Eos # (Auto) Baso # (Auto) Abs Immat Gran (auto) Absolute Neuts (auto) Absolute Nucleated RBC 0.000 0.000 0.000 Nucleated RBC % (auto) 0.0 0.0 0.0 Hold Purple Top PT INR O2 Saturation ABG pH at Pt Temp ABG pCO2 at Pt Temp ABG pO2 at Pt Temp ABG HCO3 ABG Base Excess (Actual) VBG pH VBG pCO2 VBG pO2 VBG HCO3 VBG O2 Saturation VBG Base Excess Sodium 142 138 140 Potassium 3.9 3.8 3.9 Chloride 113 H 110 H 106 Carbon Dioxide 24 19 L 26 Anion Gap 9 L 13 12 BUN 23 H 16 14 Creatinine 1.25 1.06 1.16 Estim Creat Clear Calc 43.7 51.5 47.1 Estimated GFR 57 > 60 > 60 Random Glucose 83 83 124 H Lactic Acid Lactic Acid F/U @ 2Hr Lactic Acid F/U @ 4Hr Calcium 8.3 L 8.4 9.1 D Magnesium Total Bilirubin Direct Bilirubin AST ALT Alkaline Phosphatase Troponin I High Sens C-Reactive Protein B-Natriuretic Peptide Total Protein Albumin Lipase Beta-Hydroxybutyrate Urine Color Urine Appearance Urine pH Ur Specific [place] Urine Protein Urine Glucose (UA) Urine Ketones Urine Blood Urine Nitrite Ur Leukocyte Esterase Urine RBC Urine WBC Ur Squamous Epith Cells Urine Bacteria Hyaline Casts Stool Occult Blood Influenza Type A (PCR) Influenza Type B (PCR) RSV RNA Qual (PCR) SARS-CoV-2 RNA (RT-PCR) Blood Type Antibody Screen Crossmatch 12/08/23 12/09/23 12/09/23 21:17 00:19 05:59 WBC 11.4 H RBC 2.68 L Hgb 7.6 L Hct 23.2 L MCV 86.6 MCH 28.4 MCHC 32.8 RDW 14.0 Plt Count 236 MPV 8.9 L Immature Gran % (Auto) 0.5 H Neut % (Auto) 87.6 H Lymph % (Auto) 4.0 L Hendricks % (Auto) 6.4 Eos % (Auto) 1.1 Baso % (Auto) 0.4 Lymph # (Auto) 0.5 L Hend[place] # (Auto) 0.7 Eos # (Auto) 0.1 Baso # (Auto) 0.0 Abs Immat Gran (auto) 0.06 H Absolute Neuts (auto) 10.0 H Absolute Nucleated RBC 0.000 Nucleated RBC % (auto) 0.0 Hold Purple Top SEE NOTE PT INR O2 Saturation ABG pH at Pt Temp ABG pCO2 at Pt Temp ABG pO2 at Pt Temp ABG HCO3 ABG Base Excess (Actual) VBG pH VBG pCO2 VBG pO2 VBG HCO3 VBG O2 Saturation VBG Base Excess Sodium 139 Potassium 3.6 Chloride 107 Carbon Dioxide 25 Anion Gap 11 L BUN 16 Creatinine 0.96 Estim Creat Clear Calc 56.9 Estimated GFR > 60 Random Glucose 109 Lactic Acid 3.2 H* Lactic Acid F/U @ 2Hr 1.4 Lactic Acid F/U @ 4Hr Calcium 8.1 L D Magnesium Total Bilirubin Direct Bilirubin AST ALT Alkaline Phosphatase Troponin I High Sens C-Reactive Protein B-Natriuretic Peptide Total Protein Albumin Lipase Beta-Hydroxybutyrate Urine Color Urine Appearance Urine pH Ur Specific [place] Urine Protein Urine Glucose (UA) Urine Ketones Urine Blood Urine Nitrite Ur Leukocyte Esterase Urine RBC Urine WBC Ur Squamous Epith Cells Urine Bacteria Hyaline Casts Stool Occult Blood Influenza Type A (PCR) Influenza Type B (PCR) RSV RNA Qual (PCR) SARS-CoV-2 RNA (RT-PCR) Blood Type Antibody Screen Crossmatch 12/09/23 12/10/23 12/12/23 12:10 06:06 08:27 WBC 11.4 H 10.7 RBC 3.75 L D 4.02 L Hgb 10.9 L D 11.6 L Hct 32.3 L D 35.1 L MCV 86.1 87.3 MCH 29.1 28.9 MCHC 33.7 33.0 RDW 13.7 14.1 Plt Count 201 210 MPV 8.9 L 8.8 L Immature Gran % (Auto) Neut % (Auto) Lymph % (Auto) Hendricks % (Auto) Eos % (Auto) Baso % (Auto) Lymph # (Auto) Hendricks # (Auto) Eos # (Auto) Baso # (Auto) Abs Immat Gran (auto) Absolute Neuts (auto) Absolute Nucleated RBC 0.000 0.000 Nucleated RBC % (auto) 0.0 0.0 Hold Purple Top PT INR O2 Saturation ABG pH at Pt Temp ABG pCO2 at Pt Temp ABG pO2 at Pt Temp ABG HCO3 ABG Base Excess (Actual) VBG pH VBG pCO2 VBG pO2 VBG HCO3 VBG O2 Saturation VBG Base Excess Sodium 139 139 Potassium 3.5 4.3 D Chloride 108 105 Carbon Dioxide 22 21 L Anion Gap 13 17 BUN 19 H 43 H Creatinine 0.98 1.96 H Estim Creat Clear Calc 55.7 27.8 Estimated GFR > 60 34 Random Glucose 92 99 Lactic Acid Lactic Acid F/U @ 2Hr Lactic Acid F/U @ 4Hr Calcium 8.5 9.2 D Magnesium 1.7 Total Bilirubin Direct Bilirubin AST ALT Alkaline Phosphatase Troponin I High Sens C-Reactive Protein B-Natriuretic Peptide Total Protein Albumin Lipase Beta-Hydroxybutyrate Urine Color Urine Appearance Urine pH Ur Specific [place] Urine Protein Urine Glucose (UA) Urine Ketones Urine Blood Urine Nitrite Ur Leukocyte Esterase Urine RBC Urine WBC Ur Squamous Epith Cells Urine Bacteria Hyaline Casts Stool Occult Blood Influenza Type A (PCR) Influenza Type B (PCR) RSV RNA Qual (PCR) SARS-CoV-2 RNA (RT-PCR) Blood Type B Positive Antibody Screen NEGATIVE Crossmatch See Detail 12/12/23 12/12/23 12/12/23 15:26 17:15 17:44 WBC 13.5 H RBC 3.94 L Hgb 11.5 L Hct 34.4 L MCV 87.3 MCH 29.2 MCHC 33.4 RDW 14.0 Plt Count 200 MPV 9.0 L Immature Gran % (Auto) Neut % (Auto) Lymph % (Auto) Hendricks % (Auto) Eos % (Auto) Baso % (Auto) Lymph # (Auto) Hendricks # (Auto) Eos # (Auto) Baso # (Auto) Abs Immat Gran (auto) Absolute Neuts (auto) Absolute Nucleated RBC 0.000 Nucleated RBC % (auto) 0.0 Hold Purple Top PT INR O2 Saturation 99.0 ABG pH at Pt Temp 7.50 H ABG pCO2 at Pt Temp 21 L ABG pO2 at Pt Temp 106 ABG HCO3 16 L ABG Base Excess (Actual) -4.4 VBG pH VBG pCO2 VBG pO2 VBG HCO3 VBG O2 Saturation VBG Base Excess Sodium 136 Potassium 4.5 Chloride 106 Carbon Dioxide 14 L Anion Gap 21 H BUN 47 H Creatinine 2.54 H Estim Creat Clear Calc 21.5 Estimated GFR 25 Random Glucose 83 Lactic Acid 0.9 Lactic Acid F/U @ 2Hr Lactic Acid F/U @ 4Hr Calcium 8.6 D Magnesium Total Bilirubin Direct Bilirubin AST ALT Alkaline Phosphatase Troponin I High Sens C-Reactive Protein B-Natriuretic Peptide Total Protein Albumin Lipase Beta-Hydroxybutyrate 1.15 H Urine Color Urine Appearance Urine pH Ur Specific [place] Urine Protein Urine Glucose (UA) Urine Ketones Urine Blood Urine Nitrite Ur Leukocyte Esterase Urine RBC Urine WBC Ur Squamous Epith Cells Urine Bacteria Hyaline Casts Stool Occult Blood Influenza Type A (PCR) Influenza Type B (PCR) RSV RNA Qual (PCR) SARS-CoV-2 RNA (RT-PCR) Blood Type B Positive Antibody Screen NEGATIVE Crossmatch 08/18/24 08/19/24 22:10 05:51 WBC 9.7 RBC 3.52 L Hgb 10.0 L Hct 30.3 L MCV 86.1 MCH 28.4 MCHC 33.0 RDW 14.5 Plt Count 217 MPV 9.2 L Immature Gran % (Auto) 0.5 H Neut % (Auto) 80.0 H Lymph % (Auto) 10.0 L Hendricks % (Auto) 6.7 Eos % (Auto) 2.3 Baso % (Auto) 0.5 Lymph # (Auto) 1.0 L Hend[place] # (Auto) 0.7 Eos # (Auto) 0.2 Baso # (Auto) 0.1 Abs Immat Gran (auto) 0.05 H Absolute Neuts (auto) 7.8 Absolute Nucleated RBC 0.000 Nucleated RBC % (auto) 0.0 Hold Purple Top PT INR O2 Saturation ABG pH at Pt Temp ABG pCO2 at Pt Temp ABG pO2 at Pt Temp ABG HCO3 ABG Base Excess (Actual) VBG pH VBG pCO2 VBG pO2 VBG HCO3 VBG O2 Saturation VBG Base Excess Sodium 137 138 Potassium 3.7 3.6 Chloride 104 101 Carbon Dioxide 18 L 26 Anion Gap 19 15 BUN 49 H 44 H Creatinine 2.62 H 2.35 H Estim Creat Clear Calc 20.8 23.2 Estimated GFR 24 27 Random Glucose 155 H 153 H Lactic Acid Lactic Acid F/U @ 2Hr Lactic Acid F/U @ 4Hr Calcium 8.6 8.6 Magnesium Total Bilirubin Direct Bilirubin AST ALT Alkaline Phosphatase Troponin I High Sens C-Reactive Protein B-Natriuretic Peptide Total Protein Albumin Lipase Beta-Hydroxybutyrate Urine Color Urine Appearance Urine pH Ur Specific [place] Urine Protein Urine Glucose (UA) Urine Ketones Urine Blood Urine Nitrite Ur Leukocyte Esterase Urine RBC Urine WBC Ur Squamous Epith Cells Urine Bacteria Hyaline Casts Stool Occult Blood Influenza Type A (PCR) Influenza Type B (PCR) RSV RNA Qual (PCR) SARS-CoV-2 RNA (RT-PCR) Blood Type Antibody Screen Crossmatch Airway Mallampati Class: I TM Dist: >3cm Neck ROM: Full Denture: Upper Heart: S1S2 Lungs: CTAB Assessment and Plan Assessment Anesthesia Assessment: Anesthesia Plan Discussed and Chart Reviewed Final Anesthetic Review Family History of Problems with Anesthesia: No History of Problems with Anesthesia: No NPO: Yes ASA Class: III Final Preanesthetic Review: No Changes in Pt Med Stat, Meds/Allgs Chart Reviewed, Consent Obtained/Reviewed and Anes Risks/Benef Reviewed Patient Risk: Intermediate Procedure Risk: Low Anesthetic Plan Anesthetic Plan: GA and Agree w/ Assess. and Plan Disposition: Standard PACU
--- NOTE | 2023-12-13 16:33 | W.PM.OPN ---
Operative Note Operative Note Date of Service: 12/13/23 Narrative: PreOperative Diagnosis: Radiation cystitis with bilateral hydronephrosis Post Operative Diagnosis: Radiation cystitis the bilateral hydronephrosis Procedure: Cystoscopy, clot evacuation, failed attempt at retrograde Surgeon: Dr Danis Evangelista Anesthesia: General Indications for procedure: Radiation cystitis prostate cancer with hematuria and bilateral hydronephrosis with elevated creatinine Procedure: After informed consent was verified the patient was brought to the operating room and placed in a supine position. Anesthesia was administered per protocol. The patient was prepped and draped in a sterile fashion. Safety pause time-out was performed. Antibiotics being given. 23 Citizen [place] cystoscope inserted. Large blood clot seen within bladder. Clot evacuation performed. Attempt to find ureteric orifice failed secondary to bladder mucosal changes [age] Citizen [place] hematuria catheter placed. Irrigated. Taken in stable condition recovery area Pathology: Drains: Hematuria catheter
--- NOTE | 2023-12-13 19:22 | PC.NURSE ---
S[employer] Installer obtained patient this morning. Patient was alert and oriented X4. Patient remain on tele monitor resulting in SR. Patient remained on room air and lung sounds clear throughout. Patient had Sesay catheter in place draining dark red bloody urine with clots present. [employer] Installer had to manually hand irrigate Sesay to remove blood clots frequently. Patient was incontinent of stools and changed often. Patient bedfast but repositioned frequently. Patient later went down for a procedure and returned to the unit this evening. VSS. Patient assessed and observed with 3way CBI that was wide open and draining red urine. Patients daughter called and updated on plan of care. Frequent rounding performed and safety maintained.
[2023-12-13] MEDS: rOPINIRole HCL 1 MG TABLET 3 MG PO (21:43)
[2023-12-13] MEDS: PARoxetine HCL 30 MG TABLET 60 MG PO (21:44)
[2023-12-13] MEDS: QUEtiapine Fumarate 100 MG TABLET PO (21:44)
[2023-12-13] MEDS: Mirtazapine 15 MG TABLET PO (21:44)
[2023-12-13] MEDS: cefTRIAXone sodium 1 GM in 0.9 % Sodium Chloride 50 ML IV (23:10)
[2023-12-14] VITALS (7 sets, daily range): BP systolic 92–158; BP diastolic 56–76; PULSE 81–104; RESP 16–20; TEMP 36.3–36.8; O2SAT 90–98
[2023-12-14] MEDS: Lactated Ringers 1,000 ML 100 ML IVCONT ×3 (00:19→20:11)
[2023-12-14] MEDS: 0.9 % Sodium Chloride Flush 3 ML SYRINGE IVFLUSH ×2 (00:22→23:55)
[2023-12-14] MEDS: ALPRAZolam 0.5 MG TABLET 1 MG PO ×2 (03:31→20:16)
[2023-12-14 07:02] LABS: Anion Gap 17 (12-20); Blood Urea Nitrogen 35 mg/dL (9-16); Calcium 8.6 mg/dL (8.4-10.2); Carbon Dioxide 23 mmol/L (22-29); Chloride 106 mmol/L (96-108); Estimated Glomerular Filt Rate 37; Glucose Random 102 mg/dL (60-115); Potassium 4.1 mmol/L (3.3-5.1); Sodium 142 mmol/L (135-145)
--- NOTE | 2023-12-14 08:41 | HO.POSTANES ---
Post Anesthesia Evaluation Post Anesthesia Evaluation Date of Service: 12/14/23 Vital Signs: Vital Signs Temp Pulse Resp BP Pulse Ox O2 Del Method 12/14/23 04:00 98.2 F 100 17 123/76 97 Room Air 12/14/23 00:00 98.1 F 104 H 16 158/76 H 97 Room Air Anesthesia: General LMA Mental Status: Awake Pain Control: Satisfactory Nausea/Vomiting: None Hydration: Adequate Anesthesia-Related Issues: No Anes. Related Issues
[2023-12-14] MEDS: amLODIPine Besylate 5 MG TABLET PO (08:48)
[2023-12-14] MEDS: Cyanocobalamin (Vitamin B-12) 1,000 MCG TABLET 1000 MCG PO (08:48)
[2023-12-14] MEDS: Sodium Bicarbonate 650 MG TABLET PO ×2 (08:49→20:12)
[2023-12-14] MEDS: Cholecalciferol (Vitamin D3) 25 MCG TABLET PO (08:49)
[2023-12-14] MEDS: Atorvastatin Calcium 80 MG TABLET PO (08:49)
[2023-12-14 08:51] LABS: Hematocrit 28.1 % (42.0-52.0); Mean Corpuscular Hemoglobin 28.8 pg (27.0-33.0); Mean Corpuscular Volume 89.8 fL (80.0-98.0); Mean Platelet Volume 9.8 fL (9.4-12.4); Platelet Count 182 X10*3/uL (160-400); Red Blood Count 3.13 X10*6/uL (4.60-5.80); Red Cell Distribution Width 14.5 % (11.0-16.0); White Blood Count 9.8 X10*3/uL (4.8-10.8)
--- NOTE | 2023-12-14 11:31 | HO.PM.IMPN ---
Subjective Subjective Date of Service: 12/14/23 Interval History: f/u on hematuria, sepsis d/t pyelo, MARKUS s/p cystoscopy yesterday for clot evacuation, failed attempt at retrograde he is overall doing better, hematuria resolving with cbi, renal function improving Physical Exam Vital Signs: Vital Signs: Last Vital Signs Temp 97.4 F 12/14/23 08:00 Pulse 93 12/14/23 08:00 Resp 20 12/14/23 08:00 BP 113/64 12/14/23 08:00 Pulse Ox 90 L 12/14/23 08:00 O2 Del Method Room Air 12/14/23 08:00 O2 Flow Rate 4 12/13/23 16:19 BMI result Body Mass Index 16.8 Const: Other: General frail , resting comfortably in no acute distress. Neck supple no JVD. CVS regular rate rhythm, Respiratory lungs clear to auscultation, no respiratory distress, no wheeze, no rhonchi. Gastrointestinal abdomen soft, non tender, bowel sounds audible, no guarding , no rigidity. Extremities no edema. Neuro non focal , speech clear. Skin no rash Psych appropriate affect CBI clear urine Objective Data Active Medications Acetaminophen (Acetaminophen 325 Mg Tablet) 650 mg PO Q6H PRN PRN Reason: Pain, Mild (Pain Scale 1-3), fever or headache Last Admin: 12/12/23 02:18 Dose: 650 mg Documented By: TRACY Alprazolam (Alprazolam 0.5 Mg Tablet) 1 mg PO BID PRN PRN Reason: anxiety/restlessness Last Admin: 12/14/23 03:31 Dose: 1 mg Documented By: NATY Amlodipine Besylate (Amlodipine Besylate 5 Mg Tablet) 5 mg PO DAILY [facility]; Protocol Last Admin: 12/14/23 08:48 Dose: 5 mg Documented By: RABIA Atorvastatin Calcium (Atorvastatin Calcium 80 Mg Tablet) 80 mg PO DAILY [facility] Last Admin: 12/14/23 08:49 Dose: 80 mg Documented By: RABIA Benzonatate (Benzonatate 100 Mg Capsule) 100 mg PO TID PRN PRN Reason: Cough Calcium Carbonate (Calcium Carbonate 750 Mg Tab.Chew) 750 mg PO Q4H PRN PRN Reason: Heartburn Cyanocobalamin (Cyanocobalamin (Vitamin B-12) 1,000 Mcg Tablet) 1,000 mcg PO DAILY [facility] Last Admin: 12/14/23 08:48 Dose: 1,000 mcg Documented By: RABIA Ceftriaxone Sodium 1 gm/ (Sodium Chloride) 50 mls @ 100 mls/hr IV Q24H HERMINIO Last Infusion: 12/13/23 23:40 Dose: Infused Documented By: NATY Lactated Ringer's (Lr) 1,000 mls @ 100 mls/hr IVCONT .Q10H HERMINIO Last Admin: 12/14/23 09:38 Dose: 100 mls/hr Documented By: DIMA Loperamide HCl (Loperamide Hcl 2 Mg Capsule) 2 mg PO Q6H PRN PRN Reason: Diarrhea Lorazepam (Lorazepam 0.5 Mg Tablet) 0.5 mg PO Q6H PRN PRN Reason: Anxiety Last Admin: 12/10/23 17:14 Dose: 0.5 mg Documented By: RABIA Magnesium Hydroxide (Milk Of Magnesia 30 Ml Oral.Susp) 30 ml PO DAILY PRN PRN Reason: Constipation Melatonin (Melatonin 3 Mg Tablet) 6 mg PO BEDTIME PRN PRN Reason: Insomnia Mirtazapine (Mirtazapine 15 Mg Tablet) 15 mg PO BEDTIME HERMINIO Last Admin: 12/13/23 21:44 Dose: 15 mg Documented By: NATY Morphine Sulfate (Morphine Sulfate 2 Mg/Ml Cartridge) 2 mg IVPUSH Q4H PRN; Protocol PRN Reason: Pain, Severe (Pain Scale 7-10) Last Admin: 12/12/23 21:18 Dose: 2 mg Documented By: SIMONA Ondansetron HCl (Ondansetron Hcl 4 Mg/2 Ml Vial) 4 mg IVPUSH Q8H PRN PRN Reason: Nausea and Vomiting Last Admin: 12/12/23 21:24 Dose: 4 mg Documented By: SIMONA Comments: Dry heaving/nausea Paroxetine HCl (Paroxetine Hcl 30 Mg Tablet) 60 mg PO BEDTIME [facility] Last Admin: 12/13/23 21:44 Dose: 60 mg Documented By: NATY Quetiapine Fumarate (Quetiapine Fumarate 100 Mg Tablet) 100 mg PO BEDTIME [facility] Last Admin: 12/13/23 21:44 Dose: 100 mg Documented By: NATY Ropinirole HCl (Ropinirole Hcl 1 Mg Tablet) 3 mg PO BEDTIME [facility] Last Admin: 12/13/23 21:43 Dose: 3 mg Documented By: NATY Sodium Bicarbonate (Sodium Bicarbonate 650 Mg Tablet) 650 mg PO BID [facility] Last Admin: 12/14/23 08:49 Dose: 650 mg Documented By: RABIA Sodium Chloride (0.9 % Sodium Chloride Flush 3 Ml Syringe) 3 ml IVFLUSH QSHIFT [facility] Last Admin: 12/14/23 08:51 Dose: Not Given Documented By: RABIA Non-Admin Reason: IV Running Vitamin D (Cholecalciferol (Vitamin D3) 25 Mcg Tablet) 25 mcg PO DAILY [facility] Last Admin: 12/14/23 08:49 Dose: 25 mcg Documented By: RABIA Labs 12/14/23 08:17 12/14/23 06:07 Labs: Laboratory Results - last 24 hr 12/14/23 12/14/23 06:07 08:17 MCV 89.8 MCH 28.8 MCHC 32.0 RDW 14.5 Plt Count 182 MPV 9.8 Absolute Nucleated RBC 0.000 Nucleated RBC % (auto) 0.0 Anion Gap 17 Estim Creat Clear Calc 30.0 Estimated GFR 37 Random Glucose 102 Calcium 8.6 Microbiology Microbiology Results: Microbiology 12/08/23 21:17 Blood Culture - Final Blood - Venous No growth after 5 days. 12/08/23 21:17 Blood Culture - Final Blood - Venous No growth after 5 days. Assessment and Plan (1) Hematuria: Status: Acute (2) ABLA (acute blood loss anemia): Status: Acute (3) MARKUS (acute kidney injury): Status: Acute Plan 73-year-old male with a PMH significant for?prostate cancer s/p prostatectomy and radiation therapy complicated by radiation proctitis, CAD s/p PCI in 2014, carotid artery stenosis s/p bilateral carotid stenting, hx of cerebral hemorrhage, epilepsy, HLD, HTN, restless leg syndrome, and anxiety who presents to the ED for evaluation right lower lump, chills and diagnosed to have severe sepsis, MARKUS acute blood loss anemia and hematuria. Severe sepsis due to acute pyelonephritis, urine culture lactobacilus and E. coli. sepsis resolved -zosyn since admssion. 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 resolved with bicab Acute blood loss anemia d/t hematuria -s/p transfusion 2 units of 12/08 with good effect, h/h now 01/21 above transfusion threshold Chronic diarrhea No recurrent diarrhea, had normal bowel movement has been incontinent of urine and stool x several months CT of abdomen and pelvis showed generalized rectal wall thickening surrounding the stool ball, with surrounding fat stranding consistent with proctitis , similar findings noted on prior imaging studies Previously seen by GI they recommended mesalamine by mouth t.i.d. and cholestyramine. But as per patient he was later instructed to stop these medications. 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 CT 12/11:Moderate stool burden. Otherwise the large and small bowel are normal in caliber. Rectal wall thickening and perirectal inflammatory fat stranding. -bowel regimen CAD/history of bilateral carotid stenting aspirin, Plavix. Uro recommends restarting plavix 48 once bleeding stops HTN--continue Norvasc Mood disorder Continue home meds Moderate protein calorie malnutrition add supplements Full Code DVT Prophylaxis: Mechanical device Pt will require continued inpatient hospitalization for treatment of?MARKUS , severe sepsis, hematuria requiring CBI, IV antibiotics. he is now agreable to go to SNF called daughter and no answer will reach out to daughter Quality Stroke Does the patient have a stroke diagnosis?: No VTE Prior VTE?: No VTE Risk Level:: Medical - moderate - high VTE Device Contraindication: N/A - Device Ordered VTE Drug Contraindication: Treatment Not Indicated
--- NOTE | 2023-12-14 12:45 | P.PNNP_ITS ---
Subjective Subjective Date of Service: 12/14/23 Interval history: Events noted on CBI Physical Exam 2 Vital Signs: Vital Signs: Last Vital Signs Temp 97.4 F 12/14/23 08:00 Pulse 93 12/14/23 08:00 Resp 20 12/14/23 08:00 BP 113/64 12/14/23 08:00 Pulse Ox 90 L 12/14/23 08:00 O2 Del Method Room Air 12/14/23 08:00 O2 Flow Rate 4 12/13/23 16:19 BMI result Body Mass Index 16.8 Const: General: no acute distress Orientation/consciousness: patient oriented x3 Eyes: EOM: EOMs intact bilaterally Neck: Neck: Yes supple Resp: Auscultation: diminished lung sounds Cardio: Rate: regular rate GI: Palpation (GI): Soft to palpation Neuro: General: patient oriented x3 Objective Data Labs 12/15/23 06:26 12/15/23 06:26 Labs: Laboratory Results - last 24 hr 12/14/23 12/14/23 06:07 08:17 WBC 9.8 RBC 3.13 L Hgb 9.0 L Hct 28.1 L MCV 89.8 MCH 28.8 MCHC 32.0 RDW 14.5 Plt Count 182 MPV 9.8 Absolute Nucleated RBC 0.000 Nucleated RBC % (auto) 0.0 Sodium 142 Potassium 4.1 Chloride 106 Carbon Dioxide 23 Anion Gap 17 BUN 35 H Creatinine 1.82 H Estim Creat Clear Calc 30.0 Estimated GFR 37 Random Glucose 102 Calcium 8.6 Microbiology Microbiology Results: Microbiology 12/08/23 21:17 Blood - Venous Blood Culture - Final No growth after 5 days. 12/08/23 21:17 Blood - Venous Blood Culture - Final No growth after 5 days. 12/04/23 13:55 Blood - Venous Blood Culture - Final No growth after 5 days. 12/04/23 13:55 Blood - Venous Blood Culture - Final No growth after 5 days. 12/04/23 Unknown Urine clean catch - Clean Catch Midstream Urine Culture - Final Escherichia coli Lactobacillus species Procedures Date of Service Date of Service: 12/15/23 Assessment & Plan Assessment and plan (1) MARKUS (acute kidney injury): Status: Acute Plan MARKUS due to obstructive Uropathy Imaging confirmed obstruction S/P Sesay catheter insertion UO better; Cr is trending down Beta hydroxy butyrate was high Lactate normal; Serum bicarb normalized No reason to supsect GN/AIN C/W rest of current management for now Time Spent With Patient Time: Total time managing care of this patient today ____ minutes. Progress Note: Quality Stroke Does the patient have a stroke diagnosis?: No
[2023-12-14] MEDS: QUEtiapine Fumarate 100 MG TABLET PO (20:12)
[2023-12-14] MEDS: Docusate Sodium 100 MG CAPSULE PO (20:12)
[2023-12-14] MEDS: PARoxetine HCL 30 MG TABLET 60 MG PO (20:12)
[2023-12-14] MEDS: Mirtazapine 15 MG TABLET PO (20:12)
[2023-12-14] MEDS: rOPINIRole HCL 1 MG TABLET 3 MG PO (20:12)
[2023-12-14] MEDS: polyethylene glycoL 3350 17 GM POWD.PACK PO (20:13)
[2023-12-14] MEDS: cefTRIAXone sodium 1 GM in 0.9 % Sodium Chloride 50 ML IV (23:00)
[2023-12-15] VITALS (11 sets, daily range): BP systolic 98–148; BP diastolic 58–81; PULSE 84–99; RESP 16–20; TEMP 36.2–37.1; O2SAT 95–98
[2023-12-15] MEDS: Lactated Ringers 1,000 ML 100 ML IVCONT (06:27)
[2023-12-15 06:32] LABS: Hematocrit 21.7 % (42.0-52.0); Mean Corpuscular HGB Conc 32.3 g/dl (31.0-36.0); Mean Corpuscular Hemoglobin 29.3 pg (27.0-33.0); Mean Corpuscular Volume 90.8 fL (80.0-98.0); Mean Platelet Volume 9.6 fL (9.4-12.4); Platelet Count 207 X10*3/uL (160-400); Red Blood Count 2.39 X10*6/uL (4.60-5.80); Red Cell Distribution Width 14.5 % (11.0-16.0)
[2023-12-15 06:55] LABS: Anion Gap 9 (12-20); Blood Urea Nitrogen 26 mg/dL (9-16); Calcium 8.6 mg/dL (8.4-10.2); Carbon Dioxide 30 mmol/L (22-29); Chloride 109 mmol/L (96-108); Creatinine Clr Calc Pharmacy 44.4; Estimated Glomerular Filt Rate 58; Glucose Random 81 mg/dL (60-115); Potassium 3.3 mmol/L (3.3-5.1); Sodium 145 mmol/L (135-145)
[2023-12-15] MEDS: Cholecalciferol (Vitamin D3) 25 MCG TABLET PO (08:08)
[2023-12-15] MEDS: amLODIPine Besylate 5 MG TABLET PO (08:08)
[2023-12-15] MEDS: Sodium Bicarbonate 650 MG TABLET PO ×2 (08:08→21:36)
[2023-12-15] MEDS: Cyanocobalamin (Vitamin B-12) 1,000 MCG TABLET 1000 MCG PO (08:08)
[2023-12-15] MEDS: Atorvastatin Calcium 80 MG TABLET PO (08:08)
[2023-12-15] MEDS: Docusate Sodium 100 MG CAPSULE PO ×2 (08:09→21:37)
[2023-12-15] MEDS: 0.9 % Sodium Chloride Flush 3 ML SYRINGE IVFLUSH ×2 (08:18→21:36)
--- NOTE | 2023-12-15 10:11 | MHC.CLN ---
F/U PT IS MODERATELY MALNOURISHED PO INTAKE 25% DIET RX: REGULAR-APPROPRIATE RECOMMEND RE-STARTING ENSURE TID PROVIDES 1050KCALS, 60G PROTEIN MONITOR PO INTAKE AND ENCOURAGE SUPPLEMENT
--- NOTE | 2023-12-15 10:22 | MHC.CM.PN ---
Per ROUNDS discussion, Patient is not yet medically cleared for dc (CBI); home with services is the goal and CM will continue to follow.
--- NOTE | 2023-12-15 11:37 | P.PNIM_ITS ---
Subjective Subjective Date of Service: 12/15/23 Interval History: f/u on hematuria, sepsis d/t pyelo, MARKUS d/t obstructive uropathy s/p cystoscopy 12/12 for clot evacuation, failed attempt at retrograde he is overall doing better, hematuria resolving with cbi, renal function improving, Cr near normal Physical Exam 2 Vital Signs: Vital Signs: Last Vital Signs Temp 98.7 F 12/15/23 11:18 Pulse 86 12/15/23 11:18 Resp 18 12/15/23 11:18 BP 132/68 12/15/23 11:18 Pulse Ox 97 12/15/23 11:18 O2 Del Method Room Air 12/15/23 11:18 O2 Flow Rate 4 12/13/23 16:19 BMI result Body Mass Index 16.8 Const: Other: General frail , resting comfortably in no acute distress. Neck supple no JVD. CVS regular rate rhythm, Respiratory lungs clear to auscultation, no respiratory distress, no wheeze, no rhonchi. Gastrointestinal abdomen soft, non tender, bowel sounds audible, no guarding , no rigidity. Extremities no edema. Neuro non focal , speech clear. Skin no rash Psych appropriate affect CBI clear urine Objective Data Active Medications Acetaminophen (Acetaminophen 325 Mg Tablet) 650 mg PO Q6H PRN PRN Reason: Pain, Mild (Pain Scale 1-3), fever or headache Last Admin: 12/12/23 02:18 Dose: 650 mg Documented By: TRACY Alprazolam (Alprazolam 0.5 Mg Tablet) 1 mg PO BID PRN PRN Reason: anxiety/restlessness Last Admin: 12/14/23 20:16 Dose: 1 mg Documented By: DIMA Amlodipine Besylate (Amlodipine Besylate 5 Mg Tablet) 5 mg PO DAILY [facility]; Protocol Last Admin: 12/15/23 08:08 Dose: 5 mg Documented By: LESTER Atorvastatin Calcium (Atorvastatin Calcium 80 Mg Tablet) 80 mg PO DAILY [facility] Last Admin: 12/15/23 08:08 Dose: 80 mg Documented By: LESTER Benzonatate (Benzonatate 100 Mg Capsule) 100 mg PO TID PRN PRN Reason: Cough Calcium Carbonate (Calcium Carbonate 750 Mg Tab.Chew) 750 mg PO Q4H PRN PRN Reason: Heartburn Cyanocobalamin (Cyanocobalamin (Vitamin B-12) 1,000 Mcg Tablet) 1,000 mcg PO DAILY [facility] Last Admin: 12/15/23 08:08 Dose: 1,000 mcg Documented By: LESTER Docusate Sodium (Docusate Sodium 100 Mg Capsule) 100 mg PO BID [facility] Last Admin: 12/15/23 08:09 Dose: 100 mg Documented By: LESTER Ceftriaxone Sodium 1 gm/ (Sodium Chloride) 50 mls @ 100 mls/hr IV Q24H [facility] Last Infusion: 12/14/23 23:54 Dose: Infused Documented By: JAMEL Loperamide HCl (Loperamide Hcl 2 Mg Capsule) 2 mg PO Q6H PRN PRN Reason: Diarrhea Lorazepam (Lorazepam 0.5 Mg Tablet) 0.5 mg PO Q6H PRN PRN Reason: Anxiety Last Admin: 12/10/23 17:14 Dose: 0.5 mg Documented By: RABIA Magnesium Hydroxide (Milk Of Magnesia 30 Ml Oral.Susp) 30 ml PO DAILY PRN PRN Reason: Constipation Melatonin (Melatonin 3 Mg Tablet) 6 mg PO BEDTIME PRN PRN Reason: Insomnia Mirtazapine (Mirtazapine 15 Mg Tablet) 15 mg PO BEDTIME [facility] Last Admin: 12/14/23 20:12 Dose: 15 mg Documented By: DIMA Morphine Sulfate (Morphine Sulfate 2 Mg/Ml Cartridge) 2 mg IVPUSH Q4H PRN; Protocol PRN Reason: Pain, Severe (Pain Scale 7-10) Last Admin: 12/12/23 21:18 Dose: 2 mg Documented By: SIMONA Ondansetron HCl (Ondansetron Hcl 4 Mg/2 Ml Vial) 4 mg IVPUSH Q8H PRN PRN Reason: Nausea and Vomiting Last Admin: 12/12/23 21:24 Dose: 4 mg Documented By: SIMONA Comments: Dry heaving/nausea Paroxetine HCl (Paroxetine Hcl 30 Mg Tablet) 60 mg PO BEDTIME [facility] Last Admin: 12/14/23 20:12 Dose: 60 mg Documented By: DIMA Polyethylene Glycol (Polyethylene Glycol 3350 17 Gm Powd.Pack) 17 gm PO DAILY PRN PRN Reason: Constipation Last Admin: 12/14/23 20:13 Dose: 17 gm Documented By: DIMA Quetiapine Fumarate (Quetiapine Fumarate 100 Mg Tablet) 100 mg PO BEDTIME [facility] Last Admin: 12/14/23 20:12 Dose: 100 mg Documented By: DIMA Ropinirole HCl (Ropinirole Hcl 1 Mg Tablet) 3 mg PO BEDTIME [facility] Last Admin: 12/14/23 20:12 Dose: 3 mg Documented By: DIMA Sodium Bicarbonate (Sodium Bicarbonate 650 Mg Tablet) 650 mg PO BID [facility] Last Admin: 12/15/23 08:08 Dose: 650 mg Documented By: LESTER Sodium Chloride (0.9 % Sodium Chloride Flush 3 Ml Syringe) 3 ml IVFLUSH QSHIFT [facility] Last Admin: 12/15/23 08:18 Dose: 3 ml Documented By: LESTER Vitamin D (Cholecalciferol (Vitamin D3) 25 Mcg Tablet) 25 mcg PO DAILY [facility] Last Admin: 12/15/23 08:08 Dose: 25 mcg Documented By: LESTER Labs 12/15/23 06:26 12/15/23 06:26 Labs: Laboratory Results - last 24 hr 12/09/23 12/12/23 12/15/23 12:10 15:26 06:26 MCV 90.8 MCH 29.3 MCHC 32.3 RDW 14.5 Plt Count 207 MPV 9.6 Absolute Nucleated RBC 0.000 Nucleated RBC % (auto) 0.0 Anion Gap 9 L Estim Creat Clear Calc 44.4 Estimated GFR 58 Random Glucose 81 Calcium 8.6 Blood Type B Positive Antibody Screen NEGATIVE Crossmatch See Detail See Detail Assessment and Plan (1) Hematuria: Status: Acute (2) ABLA (acute blood loss anemia): Status: Acute (3) MARKUS (acute kidney injury): Status: Acute Plan 73-year-old male with a PMH significant for?prostate cancer s/p prostatectomy and radiation therapy complicated by radiation proctitis, CAD s/p PCI in 2014, carotid artery stenosis s/p bilateral carotid stenting, hx of cerebral hemorrhage, epilepsy, HLD, HTN, restless leg syndrome, and anxiety who presents to the ED for evaluation right lower lump, chills and diagnosed to have severe sepsis, MARKUS acute blood loss anemia and hematuria. Severe sepsis due to acute pyelonephritis, urine culture lactobacilus and E. coli. sepsis resolved -zosyn since admssion. 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 starvation, resolved. Acute blood loss anemia d/t hematuria -s/p transfusion 2 units of 12/08 with good effect, h/h lower d/t ongoing anemia, Hgb 7 today, transfuse 1 unit Chronic diarrhea No recurrent diarrhea, had normal bowel movement has been incontinent of urine and stool x several months CT of abdomen and pelvis showed generalized rectal wall thickening surrounding the stool ball, with surrounding fat stranding consistent with proctitis , similar findings noted on prior imaging studies Previously seen by GI they recommended mesalamine by mouth t.i.d. and cholestyramine. But as per patient he was later instructed to stop these medications. 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 CT 12/11:Moderate stool burden. Otherwise the large and small bowel are normal in caliber. Rectal wall thickening and perirectal inflammatory fat stranding. -bowel regimen CAD/history of bilateral carotid stenting aspirin, Plavix. Uro recommends restarting plavix 48 once bleeding stops HTN--continue Norvasc Mood disorder Continue home meds Moderate protein calorie malnutrition add supplements Full Code DVT Prophylaxis: Mechanical device Pt will require continued inpatient hospitalization for treatment of?MARKUS , severe sepsis, hematuria requiring CBI, IV antibiotics. he is now agreable to go to SNF called daughter and no answer daughter updted on 12/13 Quality Stroke Does the patient have a stroke diagnosis?: No VTE Prior VTE?: No VTE Risk Level:: Medical - moderate - high VTE Device Contraindication: N/A - Device Ordered VTE Drug Contraindication: Treatment Not Indicated
--- NOTE | 2023-12-15 13:44 | P.PNNP_ITS ---
Subjective Subjective Date of Service: 12/15/23 Interval history: f/u on hematuria, sepsis d/t pyelo, MARKUS d/t obstructive uropathy s/p cystoscopy 12/12 for clot evacuation, failed attempt at retrograde he is overall doing better, hematuria resolving with cbi, renal function improving, Cr near normal Physical Exam 2 Vital Signs: Vital Signs: Last Vital Signs Temp 98.1 F 12/15/23 12:04 Pulse 97 12/15/23 12:04 Resp 16 12/15/23 12:04 BP 122/58 L 12/15/23 12:04 Pulse Ox 97 12/15/23 11:18 O2 Del Method Room Air 12/15/23 11:18 O2 Flow Rate 4 12/13/23 16:19 BMI result Body Mass Index 16.8 Const: General: no acute distress Orientation/consciousness: patient oriented x3 Eyes: EOM: EOMs intact bilaterally Neck: Neck: Yes supple Resp: Auscultation: diminished lung sounds Cardio: Rate: regular rate GI: Palpation (GI): Soft to palpation Neuro: General: patient oriented x3 Objective Data Labs 12/15/23 06:26 12/15/23 06:26 Labs: Laboratory Results - last 24 hr 12/09/23 12/12/23 12/15/23 12:10 15:26 06:26 WBC 7.0 RBC 2.39 L D Hgb 7.0 L* D Hct 21.7 L D MCV 90.8 MCH 29.3 MCHC 32.3 RDW 14.5 Plt Count 207 MPV 9.6 Absolute Nucleated RBC 0.000 Nucleated RBC % (auto) 0.0 Sodium 145 Potassium 3.3 Chloride 109 H Carbon Dioxide 30 H Anion Gap 9 L BUN 26 H Creatinine 1.23 Estim Creat Clear Calc 44.4 Estimated GFR 58 Random Glucose 81 Calcium 8.6 Blood Type B Positive Antibody Screen NEGATIVE Crossmatch See Detail See Detail Microbiology Microbiology Results: Microbiology 12/08/23 21:17 Blood - Venous Blood Culture - Final No growth after 5 days. 12/08/23 21:17 Blood - Venous Blood Culture - Final No growth after 5 days. 12/04/23 13:55 Blood - Venous Blood Culture - Final No growth after 5 days. 12/04/23 13:55 Blood - Venous Blood Culture - Final No growth after 5 days. 12/04/23 Unknown Urine clean catch - Clean Catch Midstream Urine Culture - Final Escherichia coli Lactobacillus species Procedures Date of Service Date of Service: 12/15/23 Assessment & Plan Assessment and plan (1) MARKUS (acute kidney injury): Status: Acute Plan MARKUS due to obstructive Uropathy Imaging confirmed obstruction S/P Sesay catheter insertion UO better; Cr is trending down Beta hydroxy butyrate was high Lactate normal; Serum bicarb normalized No reason to supsect GN/AIN C/W rest of current management for now Time Spent With Patient Time: Total time managing care of this patient today ____ minutes. Progress Note: Quality Stroke Does the patient have a stroke diagnosis?: No
[2023-12-15] MEDS: cefTRIAXone sodium 1 GM in 0.9 % Sodium Chloride 50 ML IV (21:35)
[2023-12-15] MEDS: rOPINIRole HCL 1 MG TABLET 3 MG PO (21:36)
[2023-12-15] MEDS: QUEtiapine Fumarate 100 MG TABLET PO (21:36)
[2023-12-15] MEDS: PARoxetine HCL 30 MG TABLET 60 MG PO (21:36)
[2023-12-15] MEDS: Mirtazapine 15 MG TABLET PO (21:37)
[2023-12-15] MEDS: ALPRAZolam 0.5 MG TABLET 1 MG PO (21:48)
[2023-12-16] VITALS (8 sets, daily range): BP systolic 100–160; BP diastolic 61–78; PULSE 87–95; RESP 18–20; TEMP 36.2–37.6; O2SAT 95–98
[2023-12-16 06:06] LABS: Hematocrit 29.4 % (42.0-52.0); Hemoglobin 9.7 g/dl (14.0-18.0); Mean Corpuscular Hemoglobin 29.6 pg (27.0-33.0); Mean Corpuscular Volume 89.6 fL (80.0-98.0); Mean Platelet Volume 9.2 fL (9.4-12.4); Platelet Count 225 X10*3/uL (160-400); Red Blood Count 3.28 X10*6/uL (4.60-5.80); Red Cell Distribution Width 14.6 % (11.0-16.0); White Blood Count 8.1 X10*3/uL (4.8-10.8)
[2023-12-16 06:20] LABS: Anion Gap 13 (12-20); Blood Urea Nitrogen 23 mg/dL (9-16); Calcium 9.1 mg/dL (8.4-10.2); Carbon Dioxide 27 mmol/L (22-29); Chloride 107 mmol/L (96-108); Creatinine Clr Calc Pharmacy 50.6; Estimated Glomerular Filt Rate > 60; Glucose Random 78 mg/dL (60-115); Potassium 3.5 mmol/L (3.3-5.1); Sodium 143 mmol/L (135-145)
[2023-12-16] MEDS: Cyanocobalamin (Vitamin B-12) 1,000 MCG TABLET 1000 MCG PO (08:46)
[2023-12-16] MEDS: Cholecalciferol (Vitamin D3) 25 MCG TABLET PO (08:46)
[2023-12-16] MEDS: Atorvastatin Calcium 80 MG TABLET PO (08:46)
[2023-12-16] MEDS: amLODIPine Besylate 5 MG TABLET PO (08:47)
[2023-12-16] MEDS: 0.9 % Sodium Chloride Flush 3 ML SYRINGE IVFLUSH ×3 (08:47→23:23)
[2023-12-16] MEDS: Sodium Bicarbonate 650 MG TABLET PO ×2 (08:47→20:26)
[2023-12-16] MEDS: Docusate Sodium 100 MG CAPSULE PO ×2 (08:47→20:29)
--- NOTE | 2023-12-16 11:00 | MHC.CM.PN ---
EMR REVIEWED, PT REMIANS ON CBI D/T CONT'D HEMATURIA, NO PLAN FOR DC AT THIS TIME, [facility] AND [facility] FOLLOWING, CM WILL CONT TO FOLLOW DC NEEDS.
--- NOTE | 2023-12-16 11:34 | P.PNIM_ITS ---
Subjective Subjective Date of Service: 12/16/23 Interval History: f/u on hematuria, sepsis d/t pyelo, MARKUS d/t obstructive uropathy s/p cystoscopy 12/12 for clot evacuation, failed attempt at retrograde CBI with punch colar and occasional clot, renal function Physical Exam 2 Vital Signs: Vital Signs: Last Vital Signs Temp 98.1 F 12/16/23 08:00 Pulse 89 12/16/23 10:41 Resp 20 12/16/23 08:00 BP 109/68 12/16/23 10:41 Pulse Ox 96 12/16/23 10:41 O2 Del Method Room Air 12/16/23 08:00 O2 Flow Rate 4 12/13/23 16:19 BMI result Body Mass Index 16.8 Const: Other: General frail , resting comfortably in no acute distress. Neck supple no JVD. CVS regular rate rhythm, Respiratory lungs clear to auscultation, no respiratory distress, no wheeze, no rhonchi. Gastrointestinal abdomen soft, non tender, bowel sounds audible, no guarding , no rigidity. Extremities no edema. Neuro non focal , speech clear. Skin no rash Psych appropriate affect CBI clear urine Objective Data Active Medications Acetaminophen (Acetaminophen 325 Mg Tablet) 650 mg PO Q6H PRN PRN Reason: Pain, Mild (Pain Scale 1-3), fever or headache Last Admin: 12/12/23 02:18 Dose: 650 mg Documented By: TRACY Amlodipine Besylate (Amlodipine Besylate 5 Mg Tablet) 5 mg PO DAILY [facility]; Protocol Last Admin: 12/16/23 08:47 Dose: 5 mg Documented By: DAMARI Atorvastatin Calcium (Atorvastatin Calcium 80 Mg Tablet) 80 mg PO DAILY [facility] Last Admin: 12/16/23 08:46 Dose: 80 mg Documented By: DAMARI Benzonatate (Benzonatate 100 Mg Capsule) 100 mg PO TID PRN PRN Reason: Cough Calcium Carbonate (Calcium Carbonate 750 Mg Tab.Chew) 750 mg PO Q4H PRN PRN Reason: Heartburn Cyanocobalamin (Cyanocobalamin (Vitamin B-12) 1,000 Mcg Tablet) 1,000 mcg PO DAILY [facility] Last Admin: 12/16/23 08:46 Dose: 1,000 mcg Documented By: DAMARI Docusate Sodium (Docusate Sodium 100 Mg Capsule) 100 mg PO BID [facility] Last Admin: 12/16/23 08:47 Dose: 100 mg Documented By: DAMARI Ceftriaxone Sodium 1 gm/ (Sodium Chloride) 50 mls @ 100 mls/hr IV Q24H [facility] Last Infusion: 12/16/23 00:49 Dose: Infused Documented By: JAMEL Loperamide HCl (Loperamide Hcl 2 Mg Capsule) 2 mg PO Q6H PRN PRN Reason: Diarrhea Magnesium Hydroxide (Milk Of Magnesia 30 Ml Oral.Susp) 30 ml PO DAILY PRN PRN Reason: Constipation Melatonin (Melatonin 3 Mg Tablet) 6 mg PO BEDTIME PRN PRN Reason: Insomnia Mirtazapine (Mirtazapine 15 Mg Tablet) 15 mg PO BEDTIME [facility] Last Admin: 12/15/23 21:37 Dose: 15 mg Documented By: JAMEL Morphine Sulfate (Morphine Sulfate 2 Mg/Ml Cartridge) 2 mg IVPUSH Q4H PRN; Protocol PRN Reason: Pain, Severe (Pain Scale 7-10) Last Admin: 12/12/23 21:18 Dose: 2 mg Documented By: SIMONA Ondansetron HCl (Ondansetron Hcl 4 Mg/2 Ml Vial) 4 mg IVPUSH Q8H PRN PRN Reason: Nausea and Vomiting Last Admin: 12/12/23 21:24 Dose: 4 mg Documented By: SIMONA Comments: Dry heaving/nausea Paroxetine HCl (Paroxetine Hcl 30 Mg Tablet) 60 mg PO BEDTIME [facility] Last Admin: 12/15/23 21:36 Dose: 60 mg Documented By: JAMEL Polyethylene Glycol (Polyethylene Glycol 3350 17 Gm Powd.Pack) 17 gm PO DAILY PRN PRN Reason: Constipation Last Admin: 12/14/23 20:13 Dose: 17 gm Documented By: DIMA Quetiapine Fumarate (Quetiapine Fumarate 100 Mg Tablet) 100 mg PO BEDTIME [facility] Last Admin: 12/15/23 21:36 Dose: 100 mg Documented By: JAMEL Ropinirole HCl (Ropinirole Hcl 1 Mg Tablet) 3 mg PO BEDTIME [facility] Last Admin: 12/15/23 21:36 Dose: 3 mg Documented By: JAMEL Sodium Bicarbonate (Sodium Bicarbonate 650 Mg Tablet) 650 mg PO BID [facility] Last Admin: 12/16/23 08:47 Dose: 650 mg Documented By: DAMARI Sodium Chloride (0.9 % Sodium Chloride Flush 3 Ml Syringe) 3 ml IVFLUSH QSHIFT [facility] Last Admin: 12/16/23 08:47 Dose: 3 ml Documented By: DAMARI Vitamin D (Cholecalciferol (Vitamin D3) 25 Mcg Tablet) 25 mcg PO DAILY [facility] Last Admin: 12/16/23 08:46 Dose: 25 mcg Documented By: DAMARI Labs 12/16/23 05:38 12/16/23 05:38 Labs: Laboratory Results - last 24 hr 12/12/23 12/16/23 15:26 05:38 MCV 89.6 MCH 29.6 MCHC 33.0 RDW 14.6 Plt Count 225 MPV 9.2 L Absolute Nucleated RBC 0.000 Nucleated RBC % (auto) 0.0 Anion Gap 13 Estim Creat Clear Calc 50.6 Estimated GFR > 60 Random Glucose 78 Calcium 9.1 Crossmatch See Detail Assessment and Plan (1) Hematuria: Status: Acute (2) ABLA (acute blood loss anemia): Status: Acute (3) MARKUS (acute kidney injury): Status: Acute Plan 73-year-old male with a PMH significant for?prostate cancer s/p prostatectomy and radiation therapy complicated by radiation proctitis, CAD s/p PCI in 2014, carotid artery stenosis s/p bilateral carotid stenting, hx of cerebral hemorrhage, epilepsy, HLD, HTN, restless leg syndrome, and anxiety who presents to the ED for evaluation right lower lump, chills and diagnosed to have severe sepsis, MARKUS acute blood loss anemia and hematuria. Severe sepsis due to acute pyelonephritis, urine culture lactobacilus and E. coli. sepsis resolved -zosyn since admssion. 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 starvation, resolved. Acute blood loss anemia d/t hematuria -s/p transfusion 2 units of 12/08 and 1 unit on 12/14 with good effect, h/h lower d/t ongoing anemia, Hgb is 9.7 Chronic diarrhea No recurrent diarrhea, had normal bowel movement has been incontinent of urine and stool x several months CT of abdomen and pelvis showed generalized rectal wall thickening surrounding the stool ball, with surrounding fat stranding consistent with proctitis , similar findings noted on prior imaging studies Previously seen by GI they recommended mesalamine by mouth t.i.d. and cholestyramine. But as per patient he was later instructed to stop these medications. 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 CT 12/11:Moderate stool burden. Otherwise the large and small bowel are normal in caliber. Rectal wall thickening and perirectal inflammatory fat stranding. -bowel regimen CAD/history of bilateral carotid stenting aspirin, Plavix. Uro recommends restarting plavix 48 once bleeding stops HTN--continue Norvasc Mood disorder Continue home meds Moderate protein calorie malnutrition add supplements Full Code DVT Prophylaxis: Mechanical device, d/t active hematuria and anemia needing transfusion Pt will require continued inpatient hospitalization for treatment of?MARKUS , severe sepsis, hematuria requiring CBI, IV antibiotics. he is now agreable to go to SNF called daughter and no answer daughter updted on 12/13 Quality Stroke Does the patient have a stroke diagnosis?: No VTE Prior VTE?: No VTE Risk Level:: Medical - moderate - high VTE Device Contraindication: N/A - Device Ordered VTE Drug Contraindication: Treatment Not Indicated
--- NOTE | 2023-12-16 12:04 | HO.WOUND ---
Wound Consult: Follow up 73yr old?[place] [facility] [place] - See progress notes and H&P for detailed history.? Wound consult follow up for Coccyx wound.? Patient agreeable to assessment and photo documentation.? Patient is noted for incontinence of loose stool. Sacrum, Coccyx and perianal area on admission 12/16/23 Sacrum Etiology: Stage 2 Pressure Injury ??Present on Admission Measurements: 0.1cm x 0.2cm x 0.1cm Wound Bed: resurfacing - red nonblanchable tissue with area of epidermal peeling Drainage / Odor: none Edges: ? well defined Ernestine wound: MASD ? No Induration, Fluctuance or Warmth noted Pain: no pain reported Goals of Treatment: ? Off Load pressure and foam dressing to aid in pressure redistribution Buttock and Perianal Etiology: MASD Moisture Associated Skin Damage Wound Bed: improving pink blanchable tissue Drainage / Odor: none Edges: ?mirrored Ernestine wound: MASD ? No Induration, Fluctuance or Warmth noted Pain: tenderness reported when cleansing Goals of Treatment Barrier cream to protect from moisture and friction No new topical recommendations needed at this time. Recommendations: 1. Turn and Reposition every 2 hours and as needed for patient comfort.? Use pillows or wedges to support off loading positions. 2. Off Load all bony prominences with use of pillows and heel boots if needed.? Apply Preventative foams where needed. ? 3. Monitor for incontinence and moisture control, use barrier creams when needed for prevention and treatment. 4. Provide adequate and supplemental nutrition.? 5. Continue low air loss mattress. 6. When applicable maintain blood glucose levels per Providers order. 7. Sacrum - Off Load Pressure - Cleanse with Ph balanced wipes. apply sacral foam dressing Change every 5 days and PRN. 8. Buttock and Perianal - Cleanse with Ph balanced wipes. Apply barrier cream to protect from moisture and friction twice daily and PRN. Re-consult wound care Nurse for wound deterioration or wound changes.
--- NOTE | 2023-12-16 13:11 | P.PNNP_ITS ---
Subjective Subjective Date of Service: 12/16/23 Interval history: f/u on hematuria, sepsis d/t pyelo, MARKUS d/t obstructive uropathy s/p cystoscopy 12/12 for clot evacuation, failed attempt at retrograde CBI with punch colar and occasional clot, renal function Physical Exam 2 Vital Signs: Vital Signs: Last Vital Signs Temp 98.0 F 12/16/23 12:00 Pulse 87 12/16/23 12:00 Resp 20 12/16/23 12:00 BP 100/61 12/16/23 12:00 Pulse Ox 96 12/16/23 12:00 O2 Del Method Room Air 12/16/23 12:00 O2 Flow Rate 4 12/13/23 16:19 BMI result Body Mass Index 16.8 Const: General: no acute distress Orientation/consciousness: patient oriented x3 Eyes: EOM: EOMs intact bilaterally Neck: Neck: Yes supple Resp: Auscultation: diminished lung sounds Cardio: Rate: regular rate GI: Palpation (GI): Soft to palpation Neuro: General: patient oriented x3 Objective Data Labs 12/16/23 05:38 12/16/23 05:38 Labs: Laboratory Results - last 24 hr 12/16/23 05:38 WBC 8.1 RBC 3.28 L D Hgb 9.7 L D Hct 29.4 L D MCV 89.6 MCH 29.6 MCHC 33.0 RDW 14.6 Plt Count 225 MPV 9.2 L Absolute Nucleated RBC 0.000 Nucleated RBC % (auto) 0.0 Sodium 143 Potassium 3.5 Chloride 107 Carbon Dioxide 27 Anion Gap 13 BUN 23 H Creatinine 1.08 Estim Creat Clear Calc 50.6 Estimated GFR > 60 Random Glucose 78 Calcium 9.1 Microbiology Microbiology Results: Microbiology 12/08/23 21:17 Blood - Venous Blood Culture - Final No growth after 5 days. 12/08/23 21:17 Blood - Venous Blood Culture - Final No growth after 5 days. 12/04/23 13:55 Blood - Venous Blood Culture - Final No growth after 5 days. 12/04/23 13:55 Blood - Venous Blood Culture - Final No growth after 5 days. 12/04/23 Unknown Urine clean catch - Clean Catch Midstream Urine Culture - Final Escherichia coli Lactobacillus species Procedures Date of Service Date of Service: 12/16/23 Assessment & Plan Assessment and plan (1) MARKUS (acute kidney injury): Status: Acute Plan MARKUS due to obstructive Uropathy Imaging confirmed obstruction S/P Sesay catheter insertion UO better; Cr is trending down Beta hydroxy butyrate was high Lactate normal; Serum bicarb normalized No reason to supsect GN/AIN C/W rest of current management for now Time Spent With Patient Time: Total time managing care of this patient today ____ minutes. Progress Note: Quality Stroke Does the patient have a stroke diagnosis?: No
[2023-12-16] MEDS: Loperamide HCl 2 MG CAPSULE PO (16:47)
[2023-12-16] MEDS: QUEtiapine Fumarate 100 MG TABLET PO (20:26)
[2023-12-16] MEDS: rOPINIRole HCL 1 MG TABLET 3 MG PO (20:26)
[2023-12-16] MEDS: Mirtazapine 15 MG TABLET PO (20:27)
[2023-12-16] MEDS: PARoxetine HCL 30 MG TABLET 60 MG PO (20:27)
[2023-12-16] MEDS: cefTRIAXone sodium 1 GM in 0.9 % Sodium Chloride 50 ML IV (23:13)
[2023-12-17] VITALS (8 sets, daily range): BP systolic 135–156; BP diastolic 64–79; PULSE 83–95; RESP 16–18; TEMP 36.1–37.1; O2SAT 92–97
[2023-12-17 06:40] LABS: Hematocrit 29.7 % (42.0-52.0); Hemoglobin 9.5 g/dl (14.0-18.0); Mean Corpuscular Hemoglobin 29.1 pg (27.0-33.0); Mean Corpuscular Volume 90.8 fL (80.0-98.0); Mean Platelet Volume 9.5 fL (9.4-12.4); Platelet Count 247 X10*3/uL (160-400); Red Blood Count 3.27 X10*6/uL (4.60-5.80); Red Cell Distribution Width 14.6 % (11.0-16.0); White Blood Count 6.9 X10*3/uL (4.8-10.8)
[2023-12-17 06:53] LABS: Anion Gap 11 (12-20); Blood Urea Nitrogen 23 mg/dL (9-16); Calcium 8.9 mg/dL (8.4-10.2); Carbon Dioxide 29 mmol/L (22-29); Chloride 108 mmol/L (96-108); Creatinine Clr Calc Pharmacy 52.5; Estimated Glomerular Filt Rate > 60; Glucose Random 98 mg/dL (60-115); Potassium 3.8 mmol/L (3.3-5.1); Sodium 144 mmol/L (135-145)
[2023-12-17] MEDS: Sodium Bicarbonate 650 MG TABLET PO ×2 (08:38→21:15)
[2023-12-17] MEDS: amLODIPine Besylate 5 MG TABLET PO (08:38)
[2023-12-17] MEDS: Loperamide HCl 2 MG CAPSULE PO (08:38)
[2023-12-17] MEDS: Atorvastatin Calcium 80 MG TABLET PO (08:38)
[2023-12-17] MEDS: 0.9 % Sodium Chloride Flush 3 ML SYRINGE IVFLUSH ×3 (08:39→21:15)
[2023-12-17] MEDS: Cyanocobalamin (Vitamin B-12) 1,000 MCG TABLET 1000 MCG PO (08:39)
[2023-12-17] MEDS: Cholecalciferol (Vitamin D3) 25 MCG TABLET PO (08:39)
--- NOTE | 2023-12-17 10:41 | HO.PM.IMPN ---
Subjective Subjective Date of Service: 12/17/23 Interval History: f/u on hematuria, sepsis d/t pyelo, MARKUS d/t obstructive uropathy s/p cystoscopy 12/12 for clot evacuation, failed attempt at retrograde CBI still requiring frequent irigation for clots, but clearing Physical Exam Vital Signs: Vital Signs: Last Vital Signs Temp 97.0 F 12/17/23 07:33 Pulse 86 12/17/23 07:33 Resp 18 12/17/23 07:33 BP 146/71 H 12/17/23 07:33 Pulse Ox 95 12/17/23 07:33 O2 Del Method Room Air 12/17/23 07:33 O2 Flow Rate 4 12/13/23 16:19 BMI result Body Mass Index 16.8 Const: Other: General frail , resting comfortably in no acute distress. Neck supple no JVD. CVS regular rate rhythm, Respiratory lungs clear to auscultation, no respiratory distress, no wheeze, no rhonchi. Gastrointestinal abdomen soft, non tender, bowel sounds audible, no guarding , no rigidity. Extremities no edema. Neuro non focal , speech clear. Skin no rash Psych appropriate affect CBI clear urine Objective Data Active Medications Acetaminophen (Acetaminophen 325 Mg Tablet) 650 mg PO Q6H PRN PRN Reason: Pain, Mild (Pain Scale 1-3), fever or headache Last Admin: 12/12/23 02:18 Dose: 650 mg Documented By: TRACY Amlodipine Besylate (Amlodipine Besylate 5 Mg Tablet) 5 mg PO DAILY [facility]PL[facility] BY [facility]; Protocol Last Admin: 12/17/23 08:38 Dose: 5 mg Documented By: AZEEM Atorvastatin Calcium (Atorvastatin Calcium 80 Mg Tablet) 80 mg PO DAILY [facility] Last Admin: 12/17/23 08:38 Dose: 80 mg Documented By: AZEEM Benzonatate (Benzonatate 100 Mg Capsule) 100 mg PO TID PRN PRN Reason: Cough Calcium Carbonate (Calcium Carbonate 750 Mg Tab.Chew) 750 mg PO Q4H PRN PRN Reason: Heartburn Cyanocobalamin (Cyanocobalamin (Vitamin B-12) 1,000 Mcg Tablet) 1,000 mcg PO DAILY [facility] Last Admin: 12/17/23 08:39 Dose: 1,000 mcg Documented By: AZEEM Docusate Sodium (Docusate Sodium 100 Mg Capsule) 100 mg PO BID REPLACED BY [facility] Last Admin: 12/17/23 08:42 Dose: Not Given Documented By: AZEEM Non-Admin Reason: PT HAVING LOOSE STOOL Ceftriaxone Sodium 1 gm/ (Sodium Chloride) 50 mls @ 100 mls/hr IV Q24H REPLACED BY [facility] Last Infusion: 12/17/23 01:33 Dose: Infused Documented By: TEJINDER Loperamide HCl (Loperamide Hcl 2 Mg Capsule) 2 mg PO Q6H PRN PRN Reason: Diarrhea Last Admin: 12/17/23 08:38 Dose: 2 mg Documented By: AZEEM Magnesium Hydroxide (Milk Of Magnesia 30 Ml Oral.Susp) 30 ml PO DAILY PRN PRN Reason: Constipation Melatonin (Melatonin 3 Mg Tablet) 6 mg PO BEDTIME PRN PRN Reason: Insomnia Mirtazapine (Mirtazapine 15 Mg Tablet) 15 mg PO BEDTIME [facility]PLAC[facility] Last Admin: 12/16/23 20:27 Dose: 15 mg Documented By: TEJINDER Morphine Sulfate (Morphine Sulfate 2 Mg/Ml Cartridge) 2 mg IVPUSH Q4H PRN; Protocol PRN Reason: Pain, Severe (Pain Scale 7-10) Last Admin: 12/12/23 21:18 Dose: 2 mg Documented By: SIMONA Ondansetron HCl (Ondansetron Hcl 4 Mg/2 Ml Vial) 4 mg IVPUSH Q8H PRN PRN Reason: Nausea and Vomiting Last Admin: 12/12/23 21:24 Dose: 4 mg Documented By: SIMONA Comments: Dry heaving/nausea Paroxetine HCl (Paroxetine Hcl 30 Mg Tablet) 60 mg PO BEDTIME [facility] Last Admin: 12/16/23 20:27 Dose: 60 mg Documented By: TEJINDER Polyethylene Glycol (Polyethylene Glycol 3350 17 Gm Powd.Pack) 17 gm PO DAILY PRN PRN Reason: Constipation Last Admin: 12/14/23 20:13 Dose: 17 gm Documented By: DIMA Quetiapine Fumarate (Quetiapine Fumarate 100 Mg Tablet) 100 mg PO BEDTIME REPLACED BY [facility] Last Admin: 12/16/23 20:26 Dose: 100 mg Documented By: TEJINDER Ropinirole HCl (Ropinirole Hcl 1 Mg Tablet) 3 mg PO BEDTIME REPLACED BY [facility] Last Admin: 12/16/23 20:26 Dose: 3 mg Documented By: TEJINDER Sodium Bicarbonate (Sodium Bicarbonate 650 Mg Tablet) 650 mg PO BID REPLACED BY [facility] Last Admin: 12/17/23 08:38 Dose: 650 mg Documented By: AZEEM Sodium Chloride (0.9 % Sodium Chloride Flush 3 Ml Syringe) 3 ml IVFLUSH QSHIFT REPLACED BY [facility] Last Admin: 12/17/23 08:39 Dose: 3 ml Documented By: AZEEM Vitamin D (Cholecalciferol (Vitamin D3) 25 Mcg Tablet) 25 mcg PO DAILY [facility] Last Admin: 12/17/23 08:39 Dose: 25 mcg Documented By: AZEEM Labs 12/17/23 06:04 12/17/23 06:04 Labs: Laboratory Results - last 24 hr 12/15/23 12/17/23 06:26 06:04 MCV 90.8 MCH 29.1 MCHC 32.0 RDW 14.6 Plt Count 247 MPV 9.5 Absolute Nucleated RBC 0.000 Nucleated RBC % (auto) 0.0 Smear Path Review Anion Gap 11 L Estim Creat Clear Calc 52.5 Estimated GFR > 60 Random Glucose 98 Calcium 8.9 Assessment and Plan (1) Hematuria: Status: Acute (2) ABLA (acute blood loss anemia): Status: Acute (3) MARKUS (acute kidney injury): Status: Acute Plan 73-year-old male with a PMH significant for?prostate cancer s/p prostatectomy and radiation therapy complicated by radiation proctitis, CAD s/p PCI in 2014, carotid artery stenosis s/p bilateral carotid stenting, hx of cerebral hemorrhage, epilepsy, HLD, HTN, restless leg syndrome, and anxiety who presents to the ED for evaluation right lower lump, chills and diagnosed to have severe sepsis, MARKUS acute blood loss anemia and hematuria. Severe sepsis due to acute pyelonephritis, urine culture lactobacilus and E. coli. sepsis resolved -zosyn since admssion. 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 starvation, resolved. Acute blood loss anemia d/t hematuria -s/p transfusion 2 units of 12/08 and 1 unit on 12/14 with good effect, h/h lower d/t ongoing anemia, Hgb is 9.5 Chronic diarrhea No recurrent diarrhea, had normal bowel movement has been incontinent of urine and stool x several months CT of abdomen and pelvis showed generalized rectal wall thickening surrounding the stool ball, with surrounding fat stranding consistent with proctitis , similar findings noted on prior imaging studies Previously seen by GI they recommended mesalamine by mouth t.i.d. and cholestyramine. But as per patient he was later instructed to stop these medications. 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 CT 12/11:Moderate stool burden. Otherwise the large and small bowel are normal in caliber. Rectal wall thickening and perirectal inflammatory fat stranding. -bowel regimen CAD/history of bilateral carotid stenting aspirin, Plavix. Uro recommends restarting plavix 48 once bleeding stops HTN--continue Norvasc Mood disorder Continue home meds Moderate protein calorie malnutrition add supplements Full Code DVT Prophylaxis: Mechanical device, d/t active hematuria and anemia needing transfusion Pt will require continued inpatient hospitalization for treatment of?MARKUS , severe sepsis, hematuria requiring CBI, IV antibiotics. he is now agreable to go to SNF called daughter and no answer daughter updted on 12/13 Quality Stroke Does the patient have a stroke diagnosis?: No VTE Prior VTE?: No VTE Risk Level:: Medical - moderate - high VTE Device Contraindication: N/A - Device Ordered VTE Drug Contraindication: Treatment Not Indicated
--- NOTE | 2023-12-17 11:03 | MHC.CM.PN ---
Per ROUNDS discussion, Patient is not yet medically cleared for dc (CBI); home with services is the plan and CM will continue to follow.
--- NOTE | 2023-12-17 11:14 | MHC.CLN ---
F/U PT IS MODERATELY MALNOURISHED PO INTAKE 75-100% DIET RX: REGULAR-APPROPRIATE PT RECEIVING ENSURE TID PROVIDES 1050KCALS, 60G PROTEIN MONITOR PO INTAKE AND ENCOURAGE SUPPLEMENT
--- NOTE | 2023-12-17 14:09 | P.PNNP_ITS ---
Subjective Subjective Date of Service: 12/17/23 Interval history: f/u on hematuria, sepsis d/t pyelo, MARKUS d/t obstructive uropathy s/p cystoscopy 12/12 for clot evacuation, failed attempt at retrograde CBI still requiring frequent irigation for clots, but clearing Physical Exam 2 Vital Signs: Vital Signs: Last Vital Signs Temp 97.6 F 12/17/23 11:35 Pulse 91 12/17/23 11:35 Resp 18 12/17/23 11:35 BP 141/72 H 12/17/23 11:35 Pulse Ox 96 12/17/23 11:35 O2 Del Method Room Air 12/17/23 11:35 O2 Flow Rate 4 12/13/23 16:19 BMI result Body Mass Index 16.8 Const: General: no acute distress Orientation/consciousness: patient oriented x3 Eyes: EOM: EOMs intact bilaterally Neck: Neck: Yes supple Resp: Auscultation: diminished lung sounds Cardio: Rate: regular rate GI: Palpation (GI): Soft to palpation Neuro: General: patient oriented x3 Objective Data Labs 12/17/23 06:04 12/17/23 06:04 Labs: Laboratory Results - last 24 hr 12/15/23 12/17/23 06:26 06:04 WBC 6.9 RBC 3.27 L Hgb 9.5 L Hct 29.7 L MCV 90.8 MCH 29.1 MCHC 32.0 RDW 14.6 Plt Count 247 MPV 9.5 Absolute Nucleated RBC 0.000 Nucleated RBC % (auto) 0.0 Smear Path Review Sodium 144 Potassium 3.8 Chloride 108 Carbon Dioxide 29 Anion Gap 11 L BUN 23 H Creatinine 1.04 Estim Creat Clear Calc 52.5 Estimated GFR > 60 Random Glucose 98 Calcium 8.9 Microbiology Microbiology Results: Microbiology 12/08/23 21:17 Blood - Venous Blood Culture - Final No growth after 5 days. 12/08/23 21:17 Blood - Venous Blood Culture - Final No growth after 5 days. 12/04/23 13:55 Blood - Venous Blood Culture - Final No growth after 5 days. 12/04/23 13:55 Blood - Venous Blood Culture - Final No growth after 5 days. 12/04/23 Unknown Urine clean catch - Clean Catch Midstream Urine Culture - Final Escherichia coli Lactobacillus species Procedures Date of Service Date of Service: 12/17/23 Assessment & Plan Assessment and plan (1) MARKUS (acute kidney injury): Status: Acute Plan MARKUS due to obstructive Uropathy Imaging confirmed obstruction S/P Sesay catheter insertion UO better; Cr is trending down and close to baseline Beta hydroxy butyrate was high Lactate normal; Serum bicarb normalized No reason to supsect GN/AIN C/W rest of current management for now Time Spent With Patient Time: Total time managing care of this patient today ____ minutes. Progress Note: Quality Stroke Does the patient have a stroke diagnosis?: No
[2023-12-17] MEDS: Mirtazapine 15 MG TABLET PO (21:13)
[2023-12-17] MEDS: PARoxetine HCL 30 MG TABLET 60 MG PO (21:13)
[2023-12-17] MEDS: QUEtiapine Fumarate 100 MG TABLET PO (21:14)
[2023-12-17] MEDS: rOPINIRole HCL 1 MG TABLET 3 MG PO (21:14)
[2023-12-18] VITALS (8 sets, daily range): BP systolic 93–151; BP diastolic 55–74; PULSE 87–95; RESP 18–20; TEMP 36.5–37; O2SAT 96–97
[2023-12-18] MEDS: cefTRIAXone sodium 1 GM in 0.9 % Sodium Chloride 50 ML IV ×2 (00:05→22:04)
[2023-12-18] MEDS: amLODIPine Besylate 5 MG TABLET PO (08:00)
[2023-12-18] MEDS: Atorvastatin Calcium 80 MG TABLET PO (08:00)
[2023-12-18] MEDS: Sodium Bicarbonate 650 MG TABLET PO ×2 (08:01→21:05)
[2023-12-18] MEDS: Cholecalciferol (Vitamin D3) 25 MCG TABLET PO (08:01)
[2023-12-18] MEDS: Cyanocobalamin (Vitamin B-12) 1,000 MCG TABLET 1000 MCG PO (08:01)
[2023-12-18] MEDS: 0.9 % Sodium Chloride Flush 3 ML SYRINGE IVFLUSH ×3 (08:01→21:06)
[2023-12-18 08:17] LABS: Hematocrit 29.7 % (42.0-52.0); Hemoglobin 9.5 g/dl (14.0-18.0); Mean Corpuscular Hemoglobin 29.2 pg (27.0-33.0); Mean Corpuscular Volume 91.4 fL (80.0-98.0); Mean Platelet Volume 9.2 fL (9.4-12.4); Platelet Count 280 X10*3/uL (160-400); Red Blood Count 3.25 X10*6/uL (4.60-5.80); Red Cell Distribution Width 14.7 % (11.0-16.0); White Blood Count 7.7 X10*3/uL (4.8-10.8)
[2023-12-18 08:35] LABS: Anion Gap 16 (12-20); Blood Urea Nitrogen 20 mg/dL (9-16); Calcium 9.1 mg/dL (8.4-10.2); Chloride 108 mmol/L (96-108); Creatinine Clr Calc Pharmacy 61.4; Estimated Glomerular Filt Rate > 60; Glucose Random 94 mg/dL (60-115); Potassium 3.5 mmol/L (3.3-5.1); Sodium 141 mmol/L (135-145)
[2023-12-18 08:57] LABS: Carbon Dioxide 21 mmol/L (22-29)
[2023-12-18] MEDS: Loperamide HCl 2 MG CAPSULE PO (09:58)
--- NOTE | 2023-12-18 11:51 | P.PNIM_ITS ---
Subjective Subjective Date of Service: 12/18/23 Interval History: f/u on hematuria, sepsis d/t pyelo, MARKUS d/t obstructive uropathy s/p cystoscopy 12/12 for clot evacuation, failed attempt at retrograde CBI is finally clearing Physical Exam 2 Vital Signs: Vital Signs: Last Vital Signs Temp 98.3 F 12/18/23 07:43 Pulse 90 12/18/23 07:43 Resp 18 12/18/23 07:43 BP 151/71 H 12/18/23 07:43 Pulse Ox 96 12/18/23 07:43 O2 Del Method Room Air 12/18/23 07:43 O2 Flow Rate 4 12/13/23 16:19 BMI result Body Mass Index 16.8 Const: Other: General frail , resting comfortably in no acute distress. Neck supple no JVD. CVS regular rate rhythm, Respiratory lungs clear to auscultation, no respiratory distress, no wheeze, no rhonchi. Gastrointestinal abdomen soft, non tender, bowel sounds audible, no guarding , no rigidity. Extremities no edema. Neuro non focal , speech clear. Skin no rash Psych appropriate affect CBI clear urine Objective Data Active Medications Acetaminophen (Acetaminophen 325 Mg Tablet) 650 mg PO Q6H PRN PRN Reason: Pain, Mild (Pain Scale 1-3), fever or headache Last Admin: 12/12/23 02:18 Dose: 650 mg Documented By: TRACY Amlodipine Besylate (Amlodipine Besylate 5 Mg Tablet) 5 mg PO DAILY [facility]; Protocol Last Admin: 12/18/23 08:00 Dose: 5 mg Documented By: AZEEM Atorvastatin Calcium (Atorvastatin Calcium 80 Mg Tablet) 80 mg PO DAILY [facility] Last Admin: 12/18/23 08:00 Dose: 80 mg Documented By: AZEEM Benzonatate (Benzonatate 100 Mg Capsule) 100 mg PO TID PRN PRN Reason: Cough Calcium Carbonate (Calcium Carbonate 750 Mg Tab.Chew) 750 mg PO Q4H PRN PRN Reason: Heartburn Cyanocobalamin (Cyanocobalamin (Vitamin B-12) 1,000 Mcg Tablet) 1,000 mcg PO DAILY [facility] Last Admin: 12/18/23 08:01 Dose: 1,000 mcg Documented By: AZEEM Docusate Sodium (Docusate Sodium 100 Mg Capsule) 100 mg PO BID [facility] Last Admin: 12/18/23 08:23 Dose: Not Given Documented By: AZEEM Non-Admin Reason: pt having loose stools Ceftriaxone Sodium 1 gm/ (Sodium Chloride) 50 mls @ 100 mls/hr IV Q24H [facility] Last Infusion: 12/18/23 00:35 Dose: Infused Documented By: TING Loperamide HCl (Loperamide Hcl 2 Mg Capsule) 2 mg PO Q6H PRN PRN Reason: Diarrhea Last Admin: 12/18/23 09:58 Dose: 2 mg Documented By: AZEEM Magnesium Hydroxide (Milk Of Magnesia 30 Ml Oral.Susp) 30 ml PO DAILY PRN PRN Reason: Constipation Melatonin (Melatonin 3 Mg Tablet) 6 mg PO BEDTIME PRN PRN Reason: Insomnia Mirtazapine (Mirtazapine 15 Mg Tablet) 15 mg PO BEDTIME [facility] Last Admin: 12/17/23 21:13 Dose: 15 mg Documented By: TING Ondansetron HCl (Ondansetron Hcl 4 Mg/2 Ml Vial) 4 mg IVPUSH Q8H PRN PRN Reason: Nausea and Vomiting Last Admin: 12/12/23 21:24 Dose: 4 mg Documented By: SIMONA Comments: Dry heaving/nausea Paroxetine HCl (Paroxetine Hcl 30 Mg Tablet) 60 mg PO BEDTIME [facility] Last Admin: 12/17/23 21:13 Dose: 60 mg Documented By: TING Polyethylene Glycol (Polyethylene Glycol 3350 17 Gm Powd.Pack) 17 gm PO DAILY PRN PRN Reason: Constipation Last Admin: 12/14/23 20:13 Dose: 17 gm Documented By: DIMA Quetiapine Fumarate (Quetiapine Fumarate 100 Mg Tablet) 100 mg PO BEDTIME [facility] Last Admin: 12/17/23 21:14 Dose: 100 mg Documented By: TING Ropinirole HCl (Ropinirole Hcl 1 Mg Tablet) 3 mg PO BEDTIME [facility] Last Admin: 12/17/23 21:14 Dose: 3 mg Documented By: TING Sodium Bicarbonate (Sodium Bicarbonate 650 Mg Tablet) 650 mg PO BID [facility] Last Admin: 12/18/23 08:01 Dose: 650 mg Documented By: AZEEM Sodium Chloride (0.9 % Sodium Chloride Flush 3 Ml Syringe) [facility] Last Admin: 12/18/23 08:01 Dose: 3 ml Documented By: AZEEM Vitamin D (Cholecalciferol (Vitamin D3) 25 Mcg Tablet) 25 mcg PO DAILY [facility] Last Admin: 12/18/23 08:01 Dose: 25 mcg Documented By: AZEEM Labs 12/18/23 08:07 12/18/23 08:07 Labs: Laboratory Results - last 24 hr 12/18/23 08:07 MCV 91.4 MCH 29.2 MCHC 32.0 RDW 14.7 Plt Count 280 MPV 9.2 L Absolute Nucleated RBC 0.000 Nucleated RBC % (auto) 0.0 Anion Gap 16 Estim Creat Clear Calc 61.4 Estimated GFR > 60 Random Glucose 94 Calcium 9.1 Assessment and Plan (1) Hematuria: Status: Acute (2) ABLA (acute blood loss anemia): Status: Acute (3) MARKUS (acute kidney injury): Status: Acute Plan 73-year-old male with a PMH significant for?prostate cancer s/p prostatectomy and radiation therapy complicated by radiation proctitis, CAD s/p PCI in 2014, carotid artery stenosis s/p bilateral carotid stenting, hx of cerebral hemorrhage, epilepsy, HLD, HTN, restless leg syndrome, and anxiety who presents to the ED for evaluation right lower lump, chills and diagnosed to have severe sepsis, MARKUS acute blood loss anemia and hematuria. Severe sepsis due to acute pyelonephritis, urine culture lactobacilus and E. coli. sepsis resolved - has been on zosyn since admssion. 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 starvation, ketosis, resolved. Acute blood loss anemia d/t hematuria -s/p transfusion 2 units of 12/08 and 1 unit on 12/14 with good effect, h/h lower d/t ongoing anemia, Hgb is 9.5 Chronic diarrhea No recurrent diarrhea, had normal bowel movement has been incontinent of urine and stool x several months CT of abdomen and pelvis showed generalized rectal wall thickening surrounding the stool ball, with surrounding fat stranding consistent with proctitis , similar findings noted on prior imaging studies Previously seen by GI they recommended mesalamine by mouth t.i.d. and cholestyramine. But as per patient he was later instructed to stop these medications. 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 CT 12/11:Moderate stool burden. Otherwise the large and small bowel are normal in caliber. Rectal wall thickening and perirectal inflammatory fat stranding. -bowel regimen CAD/history of bilateral carotid stenting aspirin, Plavix. Uro recommends restarting plavix 48 once bleeding stops HTN--continue Norvasc Mood disorder Continue home meds Moderate protein calorie malnutrition add supplements Full Code DVT Prophylaxis: Mechanical device, d/t active hematuria and anemia needing transfusion Pt will require continued inpatient hospitalization for treatment of?MARKUS , severe sepsis, hematuria requiring CBI, IV antibiotics. PT is following and doesn't require rehb daughter updted on 12/16 Quality Stroke Does the patient have a stroke diagnosis?: No VTE Prior VTE?: No VTE Risk Level:: Medical - moderate - high VTE Device Contraindication: N/A - Device Ordered VTE Drug Contraindication: Treatment Not Indicated
[2023-12-18] MEDS: Mirtazapine 15 MG TABLET PO (21:04)
[2023-12-18] MEDS: rOPINIRole HCL 1 MG TABLET 3 MG PO (21:05)
[2023-12-18] MEDS: PARoxetine HCL 30 MG TABLET 60 MG PO (21:05)
[2023-12-18] MEDS: QUEtiapine Fumarate 100 MG TABLET PO (21:05)
[2023-12-19] VITALS (7 sets, daily range): BP systolic 109–139; BP diastolic 56–74; PULSE 87–103; RESP 18; TEMP 36.1–37.2; O2SAT 94–98
[2023-12-19] MEDS: Sodium Bicarbonate 650 MG TABLET PO ×2 (07:45→21:05)
[2023-12-19] MEDS: 0.9 % Sodium Chloride Flush 3 ML SYRINGE IVFLUSH ×3 (07:45→21:06)
[2023-12-19] MEDS: amLODIPine Besylate 5 MG TABLET PO (07:45)
[2023-12-19] MEDS: Atorvastatin Calcium 80 MG TABLET PO (07:45)
[2023-12-19] MEDS: Cholecalciferol (Vitamin D3) 25 MCG TABLET PO (07:46)
[2023-12-19] MEDS: Cyanocobalamin (Vitamin B-12) 1,000 MCG TABLET 1000 MCG PO (07:46)
--- NOTE | 2023-12-19 11:03 | P.PNIM_ITS ---
Subjective Subjective Date of Service: 12/19/23 Interval History: seen and examined no complaints CBI nearly clear Physical Exam 2 Vital Signs: Vital Signs: Last Vital Signs Temp 98.9 F 12/19/23 07:17 Pulse 87 12/19/23 07:17 Resp 18 12/19/23 07:17 BP 125/66 12/19/23 07:17 Pulse Ox 98 12/19/23 07:17 O2 Del Method Room Air 12/19/23 07:17 O2 Flow Rate 4 12/13/23 16:19 BMI result Body Mass Index 16.8 Const: Other: General frail , resting comfortably in no acute distress. Neck supple no JVD. CVS regular rate rhythm, Respiratory lungs clear to auscultation, no respiratory distress, no wheeze, no rhonchi. Gastrointestinal abdomen soft, non tender, bowel sounds audible, no guarding , no rigidity. Extremities no edema. Neuro non focal , speech clear. Skin no rash Psych appropriate affect CBI clear urine Objective Data Active Medications Acetaminophen (Acetaminophen 325 Mg Tablet) 650 mg PO Q6H PRN PRN Reason: Pain, Mild (Pain Scale 1-3), fever or headache Last Admin: 12/12/23 02:18 Dose: 650 mg Documented By: TRACY Amlodipine Besylate (Amlodipine Besylate 5 Mg Tablet) 5 mg PO DAILY [facility]; Protocol Last Admin: 12/19/23 07:45 Dose: 5 mg Documented By: AZEEM Atorvastatin Calcium (Atorvastatin Calcium 80 Mg Tablet) 80 mg PO DAILY [facility] Last Admin: 12/19/23 07:45 Dose: 80 mg Documented By: AZEEM Benzonatate (Benzonatate 100 Mg Capsule) 100 mg PO TID PRN PRN Reason: Cough Calcium Carbonate (Calcium Carbonate 750 Mg Tab.Chew) 750 mg PO Q4H PRN PRN Reason: Heartburn Cyanocobalamin (Cyanocobalamin (Vitamin B-12) 1,000 Mcg Tablet) 1,000 mcg PO DAILY [facility] Last Admin: 12/19/23 07:46 Dose: 1,000 mcg Documented By: AZEEM Docusate Sodium (Docusate Sodium 100 Mg Capsule) 100 mg PO BID [facility] Last Admin: 12/19/23 07:49 Dose: Not Given Documented By: AZEEM Non-Admin Reason: pt has diarrhea Loperamide HCl (Loperamide Hcl 2 Mg Capsule) 2 mg PO Q6H PRN PRN Reason: Diarrhea Last Admin: 12/18/23 09:58 Dose: 2 mg Documented By: AZEEM Magnesium Hydroxide (Milk Of Magnesia 30 Ml Oral.Susp) 30 ml PO DAILY PRN PRN Reason: Constipation Melatonin (Melatonin 3 Mg Tablet) 6 mg PO BEDTIME PRN PRN Reason: Insomnia Mirtazapine (Mirtazapine 15 Mg Tablet) 15 mg PO BEDTIME [facility] Last Admin: 12/18/23 21:04 Dose: 15 mg Documented By: TING Ondansetron HCl (Ondansetron Hcl 4 Mg/2 Ml Vial) 4 mg IVPUSH Q8H PRN PRN Reason: Nausea and Vomiting Last Admin: 12/12/23 21:24 Dose: 4 mg Documented By: SIMONA Comments: Dry heaving/nausea Paroxetine HCl (Paroxetine Hcl 30 Mg Tablet) 60 mg PO BEDTIME [facility] Last Admin: 12/18/23 21:05 Dose: 60 mg Documented By: TING Polyethylene Glycol (Polyethylene Glycol 3350 17 Gm Powd.Pack) 17 gm PO DAILY PRN PRN Reason: Constipation Last Admin: 12/14/23 20:13 Dose: 17 gm Documented By: DIMA Quetiapine Fumarate (Quetiapine Fumarate 100 Mg Tablet) 100 mg PO BEDTIME [facility] Last Admin: 12/18/23 21:05 Dose: 100 mg Documented By: TING Ropinirole HCl (Ropinirole Hcl 1 Mg Tablet) 3 mg PO BEDTIME [facility] Last Admin: 12/18/23 21:05 Dose: 3 mg Documented By: TING Sodium Bicarbonate (Sodium Bicarbonate 650 Mg Tablet) 650 mg PO BID [facility] Last Admin: 12/19/23 07:45 Dose: 650 mg Documented By: AZEEM Sodium Chloride (0.9 % Sodium Chloride Flush 3 Ml Syringe) 3 ml IVFLUSH [facility] Last Admin: 12/19/23 07:45 Dose: 3 ml Documented By: AZEEM Vitamin D (Cholecalciferol (Vitamin D3) 25 Mcg Tablet) 25 mcg PO DAILY [facility] Last Admin: 12/19/23 07:46 Dose: 25 mcg Documented By: AZEEM Labs 12/18/23 08:12/18/23 08:07 Assessment and Plan (1) Hematuria: Status: Acute (2) ABLA (acute blood loss anemia): Status: Acute (3) MARKUS (acute kidney injury): Status: Acute Plan 73-year-old male with a PMH significant for?prostate cancer s/p prostatectomy and radiation therapy complicated by radiation proctitis, CAD s/p PCI in 2014, carotid artery stenosis s/p bilateral carotid stenting, hx of cerebral hemorrhage, epilepsy, HLD, HTN, restless leg syndrome, and anxiety who presents to the ED for evaluation right lower lump, chills and diagnosed to have severe sepsis, MARKUS acute blood loss anemia and hematuria. Severe sepsis due to acute pyelonephritis, urine culture lactobacilus and E. coli. 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 starvation, ketosis, resolved. Acute blood loss anemia d/t hematuria -s/p transfusion 2 units of 12/08 and 1 unit on 12/14 with good effect, h/h lower d/t ongoing anemia, Hgb is 9.5 Chronic diarrhea No recurrent diarrhea, had normal bowel movement has been incontinent of urine and stool x several months CT of abdomen and pelvis showed generalized rectal wall thickening surrounding the stool ball, with surrounding fat stranding consistent with proctitis , similar findings noted on prior imaging studies Previously seen by GI they recommended mesalamine by mouth t.i.d. and cholestyramine. But as per patient he was later instructed to stop these medications. 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 CT 12/11:Moderate stool burden. Otherwise the large and small bowel are normal in caliber. Rectal wall thickening and perirectal inflammatory fat stranding. -bowel regimen CAD/history of bilateral carotid stenting aspirin, Plavix. Uro recommends restarting plavix 48 once bleeding stops HTN--continue Norvasc Mood disorder Continue home meds Moderate protein calorie malnutrition add supplements Full Code DVT Prophylaxis: Mechanical device, d/t active hematuria and anemia needing transfusion Pt will require continued inpatient hospitalization for treatment of hematuria requiring CBI PT is following and doesn't require rehb Quality Stroke Does the patient have a stroke diagnosis?: No VTE Prior VTE?: No VTE Risk Level:: Medical - moderate - high VTE Device Contraindication: N/A - Device Ordered VTE Drug Contraindication: Treatment Not Indicated
[2023-12-19] MEDS: Mirtazapine 15 MG TABLET PO (21:05)
[2023-12-19] MEDS: QUEtiapine Fumarate 100 MG TABLET PO (21:05)
[2023-12-19] MEDS: rOPINIRole HCL 1 MG TABLET 3 MG PO (21:05)
[2023-12-19] MEDS: PARoxetine HCL 30 MG TABLET 60 MG PO (21:05)
[2023-12-19] MEDS: Docusate Sodium 100 MG CAPSULE PO (21:05)
[2023-12-19] MEDS: Melatonin 3 MG TABLET 6 MG PO (21:06)
[2023-12-20] VITALS (7 sets, daily range): BP systolic 122–148; BP diastolic 62–75; PULSE 83–90; RESP 18–20; TEMP 36.2–36.6; O2SAT 95–97
[2023-12-20 08:10] LABS: Hematocrit 30.9 % (42.0-52.0); Hemoglobin 9.8 g/dl (14.0-18.0); Mean Corpuscular HGB Conc 31.7 g/dl (31.0-36.0); Mean Corpuscular Hemoglobin 29.3 pg (27.0-33.0); Mean Corpuscular Volume 92.2 fL (80.0-98.0); Mean Platelet Volume 9.1 fL (9.4-12.4); Platelet Count 282 X10*3/uL (160-400); Red Blood Count 3.35 X10*6/uL (4.60-5.80); Red Cell Distribution Width 15.2 % (11.0-16.0); White Blood Count 7.7 X10*3/uL (4.8-10.8)
[2023-12-20 08:26] LABS: Anion Gap 13 (12-20); Blood Urea Nitrogen 24 mg/dL (9-16); Calcium 9.1 mg/dL (8.4-10.2); Carbon Dioxide 26 mmol/L (22-29); Chloride 106 mmol/L (96-108); Creatinine Clr Calc Pharmacy 62.8; Estimated Glomerular Filt Rate > 60; Glucose Random 100 mg/dL (60-115); Potassium 4.1 mmol/L (3.3-5.1); Sodium 141 mmol/L (135-145)
[2023-12-20] MEDS: Cyanocobalamin (Vitamin B-12) 1,000 MCG TABLET 1000 MCG PO (08:40)
[2023-12-20] MEDS: Sodium Bicarbonate 650 MG TABLET PO ×2 (08:40→21:40)
[2023-12-20] MEDS: amLODIPine Besylate 5 MG TABLET PO (08:40)
[2023-12-20] MEDS: Atorvastatin Calcium 80 MG TABLET PO (08:40)
[2023-12-20] MEDS: Cholecalciferol (Vitamin D3) 25 MCG TABLET PO (08:40)
[2023-12-20] MEDS: 0.9 % Sodium Chloride Flush 3 ML SYRINGE IVFLUSH ×3 (08:45→21:41)
--- NOTE | 2023-12-20 10:49 | P.PNIM_ITS ---
Subjective Subjective Date of Service: 12/20/23 Interval History: seen and examined no complaints CBI nearly clear Physical Exam 2 Vital Signs: Vital Signs: Last Vital Signs Temp 97.4 F 12/20/23 08:00 Pulse 85 12/20/23 08:00 Resp 20 12/20/23 08:00 BP 138/71 12/20/23 08:00 Pulse Ox 96 12/20/23 08:00 O2 Del Method Room Air 12/20/23 08:00 O2 Flow Rate 4 12/13/23 16:19 BMI result Body Mass Index 16.8 Const: Other: General frail , resting comfortably in no acute distress. Neck supple no JVD. CVS regular rate rhythm, Respiratory lungs clear to auscultation, no respiratory distress, no wheeze, no rhonchi. Gastrointestinal abdomen soft, non tender, bowel sounds audible, no guarding , no rigidity. Extremities no edema. Neuro non focal , speech clear. Skin no rash Psych appropriate affect CBI clear urine Objective Data Active Medications Acetaminophen (Acetaminophen 325 Mg Tablet) 650 mg PO Q6H PRN PRN Reason: Pain, Mild (Pain Scale 1-3), fever or headache Last Admin: 12/12/23 02:18 Dose: 650 mg Documented By: TRACY Amlodipine Besylate (Amlodipine Besylate 5 Mg Tablet) 5 mg PO DAILY [facility]; Protocol Last Admin: 12/20/23 08:40 Dose: 5 mg Documented By: MARC Atorvastatin Calcium (Atorvastatin Calcium 80 Mg Tablet) 80 mg PO DAILY [facility] Last Admin: 12/20/23 08:40 Dose: 80 mg Documented By: MARC Benzonatate (Benzonatate 100 Mg Capsule) 100 mg PO TID PRN PRN Reason: Cough Calcium Carbonate (Calcium Carbonate 750 Mg Tab.Chew) 750 mg PO Q4H PRN PRN Reason: Heartburn Cyanocobalamin (Cyanocobalamin (Vitamin B-12) 1,000 Mcg Tablet) 1,000 mcg PO DAILY [facility] Last Admin: 12/20/23 08:40 Dose: 1,000 mcg Documented By: MARC Docusate Sodium (Docusate Sodium 100 Mg Capsule) 100 mg PO BID [facility] Last Admin: 12/20/23 08:40 Dose: Not Given Documented By: MARC Non-Admin Reason: BM this am Loperamide HCl (Loperamide Hcl 2 Mg Capsule) 2 mg PO Q6H PRN PRN Reason: Diarrhea Last Admin: 12/18/23 09:58 Dose: 2 mg Documented By: AZEEM Magnesium Hydroxide (Milk Of Magnesia 30 Ml Oral.Susp) 30 ml PO DAILY PRN PRN Reason: Constipation Melatonin (Melatonin 3 Mg Tablet) 6 mg PO BEDTIME PRN PRN Reason: Insomnia Last Admin: 12/19/23 21:06 Dose: 6 mg Documented By: FAINA Mirtazapine (Mirtazapine 15 Mg Tablet) 15 mg PO BEDTIME [facility] Last Admin: 12/19/23 21:05 Dose: 15 mg Documented By: FAINA Ondansetron HCl (Ondansetron Hcl 4 Mg/2 Ml Vial) 4 mg IVPUSH Q8H PRN PRN Reason: Nausea and Vomiting Last Admin: 12/12/23 21:24 Dose: 4 mg Documented By: SIMONA Comments: Dry heaving/nausea Paroxetine HCl (Paroxetine Hcl 30 Mg Tablet) 60 mg PO BEDTIME [facility] Last Admin: 12/19/23 21:05 Dose: 60 mg Documented By: FAINA Polyethylene Glycol (Polyethylene Glycol 3350 17 Gm Powd.Pack) 17 gm PO DAILY PRN PRN Reason: Constipation Last Admin: 12/14/23 20:13 Dose: 17 gm Documented By: DIMA Quetiapine Fumarate (Quetiapine Fumarate 100 Mg Tablet) 100 mg PO BEDTIME [facility] Last Admin: 12/19/23 21:05 Dose: 100 mg Documented By: FAINA Ropinirole HCl (Ropinirole Hcl 1 Mg Tablet) 3 mg PO BEDTIME [facility] Last Admin: 12/19/23 21:05 Dose: 3 mg Documented By: FAINA Sodium Bicarbonate (Sodium Bicarbonate 650 Mg Tablet) 650 mg PO BID [facility] Last Admin: 12/20/23 08:40 Dose: 650 mg Documented By: MARC Sodium Chloride (0.9 % Sodium Chloride Flush 3 Ml Syringe) 3 ml IVFLUSH QSHIFT [facility] Last Admin: 12/20/23 08:45 Dose: 3 ml Documented By: MARC Vitamin D (Cholecalciferol (Vitamin D3) 25 Mcg Tablet) 25 mcg PO DAILY [facility] Last Admin: 12/20/23 08:40 Dose: 25 mcg Documented By: MARC Labs 12/20/23 07:57 12/20/23 07:57 Labs: Laboratory Results - last 24 hr 12/20/23 07:57 MCV 92.2 MCH 29.3 MCHC 31.7 RDW 15.2 Plt Count 282 MPV 9.1 L Absolute Nucleated RBC 0.000 Nucleated RBC % (auto) 0.0 Anion Gap 13 Estim Creat Clear Calc 62.8 Estimated GFR > 60 Random Glucose 100 Calcium 9.1 Assessment and Plan (1) Hematuria: Status: Acute (2) ABLA (acute blood loss anemia): Status: Acute (3) MARKUS (acute kidney injury): Status: Acute Plan 73-year-old male with a PMH significant for?prostate cancer s/p prostatectomy and radiation therapy complicated by radiation proctitis, CAD s/p PCI in 2014, carotid artery stenosis s/p bilateral carotid stenting, hx of cerebral hemorrhage, epilepsy, HLD, HTN, restless leg syndrome, and anxiety who presents to the ED for evaluation right lower lump, chills and diagnosed to have severe sepsis, MARKUS acute blood loss anemia and hematuria. Severe sepsis due to acute pyelonephritis, urine culture lactobacilus and E. coli. 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 starvation, ketosis, resolved. Acute blood loss anemia d/t hematuria -s/p transfusion 2 units of 12/08 and 1 unit on 12/14 with good effect, h/h lower d/t ongoing anemia, Hgb is 9.8 Chronic diarrhea No recurrent diarrhea, had normal bowel movement has been incontinent of urine and stool x several months CT of abdomen and pelvis showed generalized rectal wall thickening surrounding the stool ball, with surrounding fat stranding consistent with proctitis , similar findings noted on prior imaging studies Previously seen by GI they recommended mesalamine by mouth t.i.d. and cholestyramine. But as per patient he was later instructed to stop these medications. 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 CT 12/11:Moderate stool burden. Otherwise the large and small bowel are normal in caliber. Rectal wall thickening and perirectal inflammatory fat stranding. -bowel regimen CAD/history of bilateral carotid stenting aspirin, Plavix. Uro recommends restarting plavix 48 once bleeding stops HTN--continue Norvasc Mood disorder Continue home meds Moderate protein calorie malnutrition add supplements Full Code DVT Prophylaxis: Mechanical device, d/t active hematuria and anemia needing transfusion Pt will require continued inpatient hospitalization for treatment of hematuria requiring CBI PT is following and doesn't require rehb Quality Stroke Does the patient have a stroke diagnosis?: No VTE Prior VTE?: No VTE Risk Level:: Medical - moderate - high VTE Device Contraindication: N/A - Device Ordered VTE Drug Contraindication: Treatment Not Indicated
--- NOTE | 2023-12-20 11:38 | MHC.CM.PN ---
Per ROUNDS discussion, Patient is not yet medically cleared for dc (CBI); PT is recommending home with services and CM will continue to follow.
--- NOTE | 2023-12-20 13:04 | MHC.CLN ---
F/U DIET RX: REGULAR-APPROPRIATE. STAGE II PRESSURE INJURY TO SACRUM. PT RECEIVING ENSURE TID. PROVIDES 1050KCALS, 60G PROTEIN. SUPPLEMENT APPROPRIATE TO PROMOTE WOUND HEALING. MONITOR PO INTAKE AND ENCOURAGE SUPPLEMENT.
[2023-12-20] MEDS: Loperamide HCl 2 MG CAPSULE PO (17:59)
[2023-12-20] MEDS: Mirtazapine 15 MG TABLET PO (21:40)
[2023-12-20] MEDS: QUEtiapine Fumarate 100 MG TABLET PO (21:40)
[2023-12-20] MEDS: rOPINIRole HCL 1 MG TABLET 3 MG PO (21:40)
[2023-12-20] MEDS: PARoxetine HCL 30 MG TABLET 60 MG PO (21:40)
[2023-12-20] MEDS: Melatonin 3 MG TABLET 6 MG PO (21:41)
[2023-12-21] VITALS (7 sets, daily range): BP systolic 113–163; BP diastolic 60–80; PULSE 80–96; RESP 12–20; TEMP 36.4–37.4; O2SAT 93–99
[2023-12-21 06:42] LABS: Hematocrit 30.4 % (42.0-52.0); Hemoglobin 9.7 g/dl (14.0-18.0); Mean Corpuscular HGB Conc 31.9 g/dl (31.0-36.0); Mean Corpuscular Hemoglobin 29.6 pg (27.0-33.0); Mean Corpuscular Volume 92.7 fL (80.0-98.0); Mean Platelet Volume 9.1 fL (9.4-12.4); Platelet Count 265 X10*3/uL (160-400); Red Blood Count 3.28 X10*6/uL (4.60-5.80); Red Cell Distribution Width 15.2 % (11.0-16.0); White Blood Count 7.3 X10*3/uL (4.8-10.8)
[2023-12-21 06:58] LABS: Anion Gap 12 (12-20); Blood Urea Nitrogen 24 mg/dL (9-16); Calcium 9.6 mg/dL (8.4-10.2); Carbon Dioxide 25 mmol/L (22-29); Chloride 108 mmol/L (96-108); Creatinine Clr Calc Pharmacy 58.1; Estimated Glomerular Filt Rate > 60; Glucose Random 101 mg/dL (60-115); Potassium 4.4 mmol/L (3.3-5.1); Sodium 141 mmol/L (135-145)
[2023-12-21] MEDS: Atorvastatin Calcium 80 MG TABLET PO (09:23)
[2023-12-21] MEDS: Cyanocobalamin (Vitamin B-12) 1,000 MCG TABLET 1000 MCG PO (09:23)
[2023-12-21] MEDS: 0.9 % Sodium Chloride Flush 3 ML SYRINGE IVFLUSH ×3 (09:23→22:29)
[2023-12-21] MEDS: Sodium Bicarbonate 650 MG TABLET PO ×2 (09:23→22:29)
[2023-12-21] MEDS: Cholecalciferol (Vitamin D3) 25 MCG TABLET PO (09:23)
[2023-12-21] MEDS: amLODIPine Besylate 5 MG TABLET PO (09:23)
--- NOTE | 2023-12-21 11:03 | P.PNIM_ITS ---
Subjective Subjective Date of Service: 12/21/23 Interval History: cbi clear, but still with intermittent clot h/h stable, renal fuction nl Physical Exam 2 Vital Signs: Vital Signs: Last Vital Signs Temp 98.4 F 12/21/23 07:52 Pulse 80 12/21/23 07:52 Resp 20 12/21/23 07:52 BP 126/71 12/21/23 07:52 Pulse Ox 99 12/21/23 07:52 O2 Del Method Room Air 12/21/23 07:52 O2 Flow Rate 4 12/13/23 16:19 BMI result Body Mass Index 16.8 Const: Other: General frail , resting comfortably in no acute distress. Neck supple no JVD. CVS regular rate rhythm, Respiratory lungs clear to auscultation, no respiratory distress, no wheeze, no rhonchi. Gastrointestinal abdomen soft, non tender, bowel sounds audible, no guarding , no rigidity. Extremities no edema. Neuro non focal , speech clear. Skin no rash Psych appropriate affect CBI clear urine Objective Data Active Medications Acetaminophen (Acetaminophen 325 Mg Tablet) 650 mg PO Q6H PRN PRN Reason: Pain, Mild (Pain Scale 1-3), fever or headache Last Admin: 12/12/23 02:18 Dose: 650 mg Documented By: TRACY Amlodipine Besylate (Amlodipine Besylate 5 Mg Tablet) 5 mg PO DAILY [facility]; Protocol Last Admin: 12/21/23 09:23 Dose: 5 mg Documented By: MARC Atorvastatin Calcium (Atorvastatin Calcium 80 Mg Tablet) 80 mg PO DAILY [facility] Last Admin: 12/21/23 09:23 Dose: 80 mg Documented By: MARC Benzonatate (Benzonatate 100 Mg Capsule) 100 mg PO TID PRN PRN Reason: Cough Calcium Carbonate (Calcium Carbonate 750 Mg Tab.Chew) 750 mg PO Q4H PRN PRN Reason: Heartburn Cyanocobalamin (Cyanocobalamin (Vitamin B-12) 1,000 Mcg Tablet) 1,000 mcg PO DAILY [facility] Last Admin: 12/21/23 09:23 Dose: 1,000 mcg Documented By: MARC Loperamide HCl (Loperamide Hcl 2 Mg Capsule) 2 mg PO Q6H PRN PRN Reason: Diarrhea Last Admin: 12/20/23 17:59 Dose: 2 mg Documented By: MARC Magnesium Hydroxide (Milk Of Magnesia 30 Ml Oral.Susp) 30 ml PO DAILY PRN PRN Reason: Constipation Melatonin (Melatonin 3 Mg Tablet) 6 mg PO BEDTIME PRN PRN Reason: Insomnia Last Admin: 12/20/23 21:41 Dose: 6 mg Documented By: TRACY Mirtazapine (Mirtazapine 15 Mg Tablet) 15 mg PO BEDTIME [facility] Last Admin: 12/20/23 21:40 Dose: 15 mg Documented By: TRACY Ondansetron HCl (Ondansetron Hcl 4 Mg/2 Ml Vial) 4 mg IVPUSH Q8H PRN PRN Reason: Nausea and Vomiting Last Admin: 12/12/23 21:24 Dose: 4 mg Documented By: SIMONA Comments: Dry heaving/nausea Paroxetine HCl (Paroxetine Hcl 30 Mg Tablet) 60 mg PO BEDTIME [facility] Last Admin: 12/20/23 21:40 Dose: 60 mg Documented By: TRACY Polyethylene Glycol (Polyethylene Glycol 3350 17 Gm Powd.Pack) 17 gm PO DAILY PRN PRN Reason: Constipation Last Admin: 12/14/23 20:13 Dose: 17 gm Documented By: DIMA Quetiapine Fumarate (Quetiapine Fumarate 100 Mg Tablet) 100 mg PO BEDTIME [facility] Last Admin: 12/20/23 21:40 Dose: 100 mg Documented By: TRACY Ropinirole HCl (Ropinirole Hcl 1 Mg Tablet) 3 mg PO BEDTIME [facility] Last Admin: 12/20/23 21:40 Dose: 3 mg Documented By: TRACY Sodium Bicarbonate (Sodium Bicarbonate 650 Mg Tablet) 650 mg PO BID [facility] Last Admin: 12/21/23 09:23 Dose: 650 mg Documented By: MARC Sodium Chloride (0.9 % Sodium Chloride Flush 3 Ml Syringe) 3 ml IVFLUSH QSHIFT [facility] Last Admin: 12/21/23 09:23 Dose: 3 ml Documented By: MARC Vitamin D (Cholecalciferol (Vitamin D3) 25 Mcg Tablet) 25 mcg PO DAILY [facility] Last Admin: 12/21/23 09:23 Dose: 25 mcg Documented By: MARC Labs 12/21/23 06:34 12/21/23 06:34 Labs: Laboratory Results - last 24 hr 12/21/23 06:34 MCV 92.7 MCH 29.6 MCHC 31.9 RDW 15.2 Plt Count 265 MPV 9.1 L Absolute Nucleated RBC 0.000 Nucleated RBC % (auto) 0.0 Anion Gap 12 Estim Creat Clear Calc 58.1 Estimated GFR > 60 Random Glucose 101 Calcium 9.6 Blood Type B Positive Antibody Screen NEGATIVE Assessment and Plan (1) Hematuria: Status: Acute (2) ABLA (acute blood loss anemia): Status: Acute (3) MARKUS (acute kidney injury): Status: Acute Plan 73-year-old male with a PMH significant for?prostate cancer s/p prostatectomy and radiation therapy complicated by radiation proctitis, CAD s/p PCI in 2014, carotid artery stenosis s/p bilateral carotid stenting, hx of cerebral hemorrhage, epilepsy, HLD, HTN, restless leg syndrome, and anxiety who presents to the ED for evaluation right lower lump, chills and diagnosed to have severe sepsis, MARKUS acute blood loss anemia and hematuria. Severe sepsis due to acute pyelonephritis, urine culture lactobacilus and E. coli. 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 starvation, ketosis, resolved. Acute blood loss anemia d/t hematuria -s/p transfusion 2 units of 12/08 and 1 unit on 12/14 with good effect, h/h lower d/t ongoing anemia, Hgb is 9.8 Chronic diarrhea No recurrent diarrhea, had normal bowel movement has been incontinent of urine and stool x several months CT of abdomen and pelvis showed generalized rectal wall thickening surrounding the stool ball, with surrounding fat stranding consistent with proctitis , similar findings noted on prior imaging studies Previously seen by GI they recommended mesalamine by mouth t.i.d. and cholestyramine. But as per patient he was later instructed to stop these medications. 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 CT 12/11:Moderate stool burden. Otherwise the large and small bowel are normal in caliber. Rectal wall thickening and perirectal inflammatory fat stranding. -bowel regimen CAD/history of bilateral carotid stenting aspirin, Plavix. Uro recommends restarting plavix 48 once bleeding stops HTN--continue Norvasc Mood disorder Continue home meds Moderate protein calorie malnutrition add supplements Full Code DVT Prophylaxis: Mechanical device, d/t active hematuria and anemia needing transfusion Pt will require continued inpatient hospitalization for treatment of hematuria requiring CBI PT is following and doesn't require rehb Quality Stroke Does the patient have a stroke diagnosis?: No VTE Prior VTE?: No VTE Risk Level:: Medical - moderate - high VTE Device Contraindication: N/A - Device Ordered VTE Drug Contraindication: Treatment Not Indicated
[2023-12-21] MEDS: rOPINIRole HCL 1 MG TABLET 3 MG PO (22:28)
[2023-12-21] MEDS: QUEtiapine Fumarate 100 MG TABLET PO (22:28)
[2023-12-21] MEDS: PARoxetine HCL 30 MG TABLET 60 MG PO (22:28)
[2023-12-21] MEDS: Mirtazapine 15 MG TABLET PO (22:29)
[2023-12-21] MEDS: Melatonin 3 MG TABLET 6 MG PO (22:29)
[2023-12-22 04:00] VITALS: BP 122/63; PULSE 84; RESP 16; TEMP 37; O2SAT 96
[2023-12-22 06:23] LABS: Hematocrit 29.6 % (42.0-52.0); Hemoglobin 9.4 g/dl (14.0-18.0); Mean Corpuscular HGB Conc 31.8 g/dl (31.0-36.0); Mean Corpuscular Hemoglobin 29.2 pg (27.0-33.0); Mean Corpuscular Volume 91.9 fL (80.0-98.0); Mean Platelet Volume 9.2 fL (9.4-12.4); Platelet Count 256 X10*3/uL (160-400); Red Blood Count 3.22 X10*6/uL (4.60-5.80); Red Cell Distribution Width 15.3 % (11.0-16.0); White Blood Count 6.4 X10*3/uL (4.8-10.8)
[2023-12-22 06:38] LABS: Anion Gap 14 (12-20); Blood Urea Nitrogen 24 mg/dL (9-16); Calcium 9.2 mg/dL (8.4-10.2); Carbon Dioxide 24 mmol/L (22-29); Chloride 105 mmol/L (96-108); Creatinine Clr Calc Pharmacy 58.1; Estimated Glomerular Filt Rate > 60; Glucose Random 101 mg/dL (60-115); Potassium 3.7 mmol/L (3.3-5.1); Sodium 139 mmol/L (135-145)
[2023-12-22 07:55] VITALS: BP 115/65; PULSE 80; RESP 20; TEMP 36.6; O2SAT 97
[2023-12-22] MEDS: Sodium Bicarbonate 650 MG TABLET PO ×2 (09:54→21:12)
[2023-12-22] MEDS: amLODIPine Besylate 5 MG TABLET PO (09:54)
[2023-12-22] MEDS: Atorvastatin Calcium 80 MG TABLET PO (09:54)
[2023-12-22] MEDS: Cholecalciferol (Vitamin D3) 25 MCG TABLET PO (09:54)
[2023-12-22] MEDS: 0.9 % Sodium Chloride Flush 3 ML SYRINGE IVFLUSH ×3 (09:55→21:12)
[2023-12-22] MEDS: Cyanocobalamin (Vitamin B-12) 1,000 MCG TABLET 1000 MCG PO (09:55)
--- NOTE | 2023-12-22 10:38 | HO.PM.IMPN ---
Subjective Subjective Date of Service: 12/22/23 Interval History: cbi clear, but was pink earlier Physical Exam Vital Signs: Vital Signs: Last Vital Signs Temp 97.9 F 12/22/23 07:55 Pulse 80 12/22/23 07:55 Resp 20 12/22/23 07:55 BP 115/65 12/22/23 07:55 Pulse Ox 97 12/22/23 07:55 O2 Del Method Room Air 12/22/23 07:55 O2 Flow Rate 4 12/13/23 16:19 BMI result Body Mass Index 16.8 Const: Other: General frail , resting comfortably in no acute distress. Neck supple no JVD. CVS regular rate rhythm, Respiratory lungs clear to auscultation, no respiratory distress, no wheeze, no rhonchi. Gastrointestinal abdomen soft, non tender, bowel sounds audible, no guarding , no rigidity. Extremities no edema. Neuro non focal , speech clear. Skin no rash Psych appropriate affect CBI clear urine Objective Data Active Medications Acetaminophen (Acetaminophen 325 Mg Tablet) 650 mg PO Q6H PRN PRN Reason: Pain, Mild (Pain Scale 1-3), fever or headache Last Admin: 12/12/23 02:18 Dose: 650 mg Documented By: TRACY Amlodipine Besylate (Amlodipine Besylate 5 Mg Tablet) 5 mg PO DAILY [facility]; Protocol Last Admin: 12/22/23 09:54 Dose: 5 mg Documented By: SARA Atorvastatin Calcium (Atorvastatin Calcium 80 Mg Tablet) 80 mg PO DAILY [facility] Last Admin: 12/22/23 09:54 Dose: 80 mg Documented By: SARA Benzonatate (Benzonatate 100 Mg Capsule) 100 mg PO TID PRN PRN Reason: Cough Calcium Carbonate (Calcium Carbonate 750 Mg Tab.Chew) 750 mg PO Q4H PRN PRN Reason: Heartburn Cyanocobalamin (Cyanocobalamin (Vitamin B-12) 1,000 Mcg Tablet) 1,000 mcg PO DAILY [facility] Last Admin: 12/22/23 09:55 Dose: 1,000 mcg Documented By: SARA Loperamide HCl (Loperamide Hcl 2 Mg Capsule) 2 mg PO Q6H PRN PRN Reason: Diarrhea Last Admin: 12/20/23 17:59 Dose: 2 mg Documented By: MARC Magnesium Hydroxide (Milk Of Magnesia 30 Ml Oral.Susp) 30 ml PO DAILY PRN PRN Reason: Constipation Melatonin (Melatonin 3 Mg Tablet) 6 mg PO BEDTIME PRN PRN Reason: Insomnia Last Admin: 12/21/23 22:29 Dose: 6 mg Documented By: TRACY Mirtazapine (Mirtazapine 15 Mg Tablet) 15 mg PO BEDTIME [facility] Last Admin: 12/21/23 22:29 Dose: 15 mg Documented By: TRACY Ondansetron HCl (Ondansetron Hcl 4 Mg/2 Ml Vial) 4 mg IVPUSH Q8H PRN PRN Reason: Nausea and Vomiting Last Admin: 12/12/23 21:24 Dose: 4 mg Documented By: SIMONA Comments: Dry heaving/nausea Paroxetine HCl (Paroxetine Hcl 30 Mg Tablet) 60 mg PO BEDTIME [facility] Last Admin: 12/21/23 22:28 Dose: 60 mg Documented By: TRACY Polyethylene Glycol (Polyethylene Glycol 3350 17 Gm Powd.Pack) 17 gm PO DAILY PRN PRN Reason: Constipation Last Admin: 12/14/23 20:13 Dose: 17 gm Documented By: DIMA Quetiapine Fumarate (Quetiapine Fumarate 100 Mg Tablet) 100 mg PO BEDTIME [facility] Last Admin: 12/21/23 22:28 Dose: 100 mg Documented By: TRACY Ropinirole HCl (Ropinirole Hcl 1 Mg Tablet) 3 mg PO BEDTIME [facility] Last Admin: 12/21/23 22:28 Dose: 3 mg Documented By: TRACY Sodium Bicarbonate (Sodium Bicarbonate 650 Mg Tablet) 650 mg PO BID [facility] Last Admin: 12/22/23 09:54 Dose: 650 mg Documented By: SARA Sodium Chloride (0.9 % Sodium Chloride Flush 3 Ml Syringe) [facility] Last Admin: 12/22/23 09:55 Dose: 3 ml Documented By: SARA Vitamin D (Cholecalciferol (Vitamin D3) 25 Mcg Tablet) 25 mcg PO DAILY [facility] Last Admin: 12/22/23 09:54 Dose: 25 mcg Documented By: SARA Labs 12/22/23 05:48 12/22/23 05:48 Labs: Laboratory Results - last 24 hr 12/22/23 05:48 MCV 91.9 MCH 29.2 MCHC 31.8 RDW 15.3 Plt Count 256 MPV 9.2 L Absolute Nucleated RBC 0.000 Nucleated RBC % (auto) 0.0 Anion Gap 14 Estim Creat Clear Calc 58.1 Estimated GFR > 60 Random Glucose 101 Calcium 9.2 Assessment and Plan (1) Urinary retention: Status: Acute (2) BNC (bladder neck contracture): Status: Acute (3) Hematuria: Status: Acute (4) ABLA (acute blood loss anemia): Status: Acute (5) MARKUS (acute kidney injury): Status: Acute Plan 73-year-old male with a PMH significant for?prostate cancer s/p prostatectomy and radiation therapy complicated by radiation proctitis, CAD s/p PCI in 2014, carotid artery stenosis s/p bilateral carotid stenting, hx of cerebral hemorrhage, epilepsy, HLD, HTN, restless leg syndrome, and anxiety who presents to the ED for evaluation right lower lump, chills and diagnosed to have severe sepsis, MARKUS acute blood loss anemia and hematuria. Severe sepsis due to acute pyelonephritis, urine culture lactobacilus and E. coli. 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 starvation, ketosis, resolved. Acute blood loss anemia d/t hematuria -s/p transfusion 2 units of 12/08 and 1 unit on 12/14 with good effect, h/h lower d/t ongoing anemia, Hgb is 9.8 Chronic diarrhea No recurrent diarrhea, had normal bowel movement has been incontinent of urine and stool x several months CT of abdomen and pelvis showed generalized rectal wall thickening surrounding the stool ball, with surrounding fat stranding consistent with proctitis , similar findings noted on prior imaging studies Previously seen by GI they recommended mesalamine by mouth t.i.d. and cholestyramine. But as per patient he was later instructed to stop these medications. 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 CT 12/11:Moderate stool burden. Otherwise the large and small bowel are normal in caliber. Rectal wall thickening and perirectal inflammatory fat stranding. -bowel regimen CAD/history of bilateral carotid stenting aspirin, Plavix. Uro recommends restarting plavix 48 once bleeding stops HTN--continue Norvasc Mood disorder Continue home meds Moderate protein calorie malnutrition add supplements Full Code DVT Prophylaxis: Mechanical device, d/t active hematuria and anemia needing transfusion Pt will require continued inpatient hospitalization for treatment of hematuria requiring CBI PT is following and doesn't require rehb Quality Stroke Does the patient have a stroke diagnosis?: No VTE Prior VTE?: No VTE Risk Level:: Medical - moderate - high VTE Device Contraindication: N/A - Device Ordered VTE Drug Contraindication: Treatment Not Indicated
[2023-12-22 11:49] VITALS: BP 113/55; PULSE 88; RESP 20; TEMP 36.8; O2SAT 95
--- NOTE | 2023-12-22 13:16 | MHC.CLN ---
F/U DIET RX: REGULAR-APPROPRIATE. STAGE II PRESSURE INJURY TO SACRUM. PT RECEIVING ENSURE TID. PROVIDES 1050KCALS, 60G PROTEIN. SUPPLEMENT APPROPRIATE TO PROMOTE WOUND HEALING. INTAKE VARIABLE WITH MANY MEALS 100% MONITOR PO INTAKE AND ENCOURAGE SUPPLEMENT.
--- NOTE | 2023-12-22 13:23 | MHC.CM.PN ---
This CM received a phone call from [employer] air traffic systems technician in regard to a concern with the pts daughter, DCF asked if this CM would facilitate the pt to speak with them. Deyanira's number was given to pt, and he stated he would call her.
--- NOTE | 2023-12-22 13:26 | MHC.CM.PN ---
EMR reviewed and per MD rounds, pt is not medically cleared for discharge due to management of hematuria, urology consult pending.
[2023-12-22 15:36] VITALS: BP 128/62; PULSE 90; RESP 20; TEMP 36.6; O2SAT 97
[2023-12-22 19:44] VITALS: BP 115/56; PULSE 92; RESP 16; TEMP 36.8; O2SAT 97
[2023-12-22] MEDS: rOPINIRole HCL 1 MG TABLET 3 MG PO (21:11)
[2023-12-22] MEDS: PARoxetine HCL 30 MG TABLET 60 MG PO (21:12)
[2023-12-22] MEDS: Mirtazapine 15 MG TABLET PO (21:12)
[2023-12-22] MEDS: QUEtiapine Fumarate 100 MG TABLET PO (21:12)
[2023-12-22] MEDS: Melatonin 3 MG TABLET 6 MG PO (21:15)
[2023-12-23] VITALS (8 sets, daily range): BP systolic 117–143; BP diastolic 58–66; PULSE 67–98; RESP 16–20; TEMP 36.1–37.2; O2SAT 94–100
[2023-12-23 06:15] LABS: Hematocrit 30.9 % (42.0-52.0); Hemoglobin 9.7 g/dl (14.0-18.0); Mean Corpuscular HGB Conc 31.4 g/dl (31.0-36.0); Mean Corpuscular Volume 92.5 fL (80.0-98.0); Mean Platelet Volume 9.3 fL (9.4-12.4); Platelet Count 256 X10*3/uL (160-400); Red Blood Count 3.34 X10*6/uL (4.60-5.80); Red Cell Distribution Width 15.7 % (11.0-16.0); White Blood Count 6.7 X10*3/uL (4.8-10.8)
[2023-12-23 06:30] LABS: Anion Gap 13 (12-20); Blood Urea Nitrogen 27 mg/dL (9-16); Calcium 9.6 mg/dL (8.4-10.2); Carbon Dioxide 26 mmol/L (22-29); Chloride 105 mmol/L (96-108); Creatinine Clr Calc Pharmacy 58.1; Estimated Glomerular Filt Rate > 60; Glucose Random 100 mg/dL (60-115); Potassium 4.1 mmol/L (3.3-5.1); Sodium 140 mmol/L (135-145)
[2023-12-23] MEDS: Atorvastatin Calcium 80 MG TABLET PO (08:39)
[2023-12-23] MEDS: Cholecalciferol (Vitamin D3) 25 MCG TABLET PO (08:39)
[2023-12-23] MEDS: amLODIPine Besylate 5 MG TABLET PO (08:39)
[2023-12-23] MEDS: 0.9 % Sodium Chloride Flush 3 ML SYRINGE IVFLUSH ×3 (08:39→21:05)
[2023-12-23] MEDS: Cyanocobalamin (Vitamin B-12) 1,000 MCG TABLET 1000 MCG PO (08:39)
[2023-12-23] MEDS: Sodium Bicarbonate 650 MG TABLET PO ×2 (08:39→21:05)
[2023-12-23 10:07] LABS: Adenovirus F 40/41 Not Detected (Not Detect.); Astrovirus Not Detected (Not Detect.); Campylobacter Not Detected (Not Detect.); Cryptosporidium Not Detected (Not Detect.); Cyclospora cayetanensis Not Detected (Not Detect.); E. coli EAEC Not Detected (Not Detect.); E. coli EPEC Not Detected (Not Detect.); E. coli ETEC Not Detected (Not Detect.); E. coli STEC Not Detected (Not Detect.); Entamoeba histolytica Not Detected (Not Detect.); Giardia lamblia Not Detected (Not Detect.); Norovirus GI/GII Not Detected (Not Detect.); Plesiomonas shigelloides Not Detected (Not Detect.); Rotavirus A Not Detected (Not Detect.); Salmonella Not Detected (Not Detect.); Sapovirus Not Detected (Not Detect.); Shigella sp./EIEC Not Detected (Not Detect.); Vibrio Not Detected (Not Detect.); Vibrio Cholerae Not Detected (Not Detect.); Yersinia enterocolitica Not Detected (Not Detect.)
--- NOTE | 2023-12-23 10:43 | P.PNIM_ITS ---
Subjective Subjective Date of Service: 12/23/23 Interval History: cbi was clear most of yesterday, even upon ambulation, but light pin this morning Physical Exam 2 Vital Signs: Vital Signs: Last Vital Signs Temp 97.4 F 12/23/23 07:47 Pulse 77 12/23/23 07:47 Resp 20 12/23/23 07:47 BP 138/65 12/23/23 07:47 Pulse Ox 98 12/23/23 07:47 O2 Del Method Room Air 12/23/23 07:47 O2 Flow Rate 4 12/13/23 16:19 BMI result Body Mass Index 16.8 Const: Other: General frail , resting comfortably in no acute distress. Neck supple no JVD. CVS regular rate rhythm, Respiratory lungs clear to auscultation, no respiratory distress, no wheeze, no rhonchi. Gastrointestinal abdomen soft, non tender, bowel sounds audible, no guarding , no rigidity. Extremities no edema. Neuro non focal , speech clear. Skin no rash Psych appropriate affect CBI clear urine Objective Data Active Medications Acetaminophen (Acetaminophen 325 Mg Tablet) 650 mg PO Q6H PRN PRN Reason: Pain, Mild (Pain Scale 1-3), fever or headache Last Admin: 12/12/23 02:18 Dose: 650 mg Documented By: TRACY Amlodipine Besylate (Amlodipine Besylate 5 Mg Tablet) 5 mg PO DAILY [facility]; Protocol Last Admin: 12/23/23 08:39 Dose: 5 mg Documented By: SARA Atorvastatin Calcium (Atorvastatin Calcium 80 Mg Tablet) 80 mg PO DAILY [facility] Last Admin: 12/23/23 08:39 Dose: 80 mg Documented By: SARA Benzonatate (Benzonatate 100 Mg Capsule) 100 mg PO TID PRN PRN Reason: Cough Calcium Carbonate (Calcium Carbonate 750 Mg Tab.Chew) 750 mg PO Q4H PRN PRN Reason: Heartburn Cyanocobalamin (Cyanocobalamin (Vitamin B-12) 1,000 Mcg Tablet) 1,000 mcg PO DAILY [facility] Last Admin: 12/23/23 08:39 Dose: 1,000 mcg Documented By: SARA Loperamide HCl (Loperamide Hcl 2 Mg Capsule) 2 mg PO Q6H PRN PRN Reason: Diarrhea Last Admin: 12/20/23 17:59 Dose: 2 mg Documented By: MARC Magnesium Hydroxide (Milk Of Magnesia 30 Ml Oral.Susp) 30 ml PO DAILY PRN PRN Reason: Constipation Melatonin (Melatonin 3 Mg Tablet) 6 mg PO BEDTIME PRN PRN Reason: Insomnia Last Admin: 12/22/23 21:15 Dose: 6 mg Documented By: TING Mirtazapine (Mirtazapine 15 Mg Tablet) 15 mg PO BEDTIME [facility] Last Admin: 12/22/23 21:12 Dose: 15 mg Documented By: TING Ondansetron HCl (Ondansetron Hcl 4 Mg/2 Ml Vial) 4 mg IVPUSH Q8H PRN PRN Reason: Nausea and Vomiting Last Admin: 12/12/23 21:24 Dose: 4 mg Documented By: SIMONA Comments: Dry heaving/nausea Paroxetine HCl (Paroxetine Hcl 30 Mg Tablet) 60 mg PO BEDTIME [facility] Last Admin: 12/22/23 21:12 Dose: 60 mg Documented By: TING Polyethylene Glycol (Polyethylene Glycol 3350 17 Gm Powd.Pack) 17 gm PO DAILY PRN PRN Reason: Constipation Last Admin: 12/14/23 20:13 Dose: 17 gm Documented By: DIMA Quetiapine Fumarate (Quetiapine Fumarate 100 Mg Tablet) 100 mg PO BEDTIME [facility] Last Admin: 12/22/23 21:12 Dose: 100 mg Documented By: TING Ropinirole HCl (Ropinirole Hcl 1 Mg Tablet) 3 mg PO BEDTIME [facility] Last Admin: 12/22/23 21:11 Dose: 3 mg Documented By: TING Sodium Bicarbonate (Sodium Bicarbonate 650 Mg Tablet) 650 mg PO BID [facility] Last Admin: 12/23/23 08:39 Dose: 650 mg Documented By: SARA Sodium Chloride (0.9 % Sodium Chloride Flush 3 Ml Syringe) 3 ml IVFLUSH QSHIFT [facility] Last Admin: 12/23/23 08:39 Dose: 3 ml Documented By: SARA Vitamin D (Cholecalciferol (Vitamin D3) 25 Mcg Tablet) 25 mcg PO DAILY [facility] Last Admin: 12/23/23 08:39 Dose: 25 mcg Documented By: SARA Labs 12/23/23 05:52 12/23/23 05:52 Labs: Laboratory Results - last 24 hr 12/22/23 12/23/23 16:37 05:52 MCV 92.5 MCH 29.0 MCHC 31.4 RDW 15.7 Plt Count 256 MPV 9.3 L Absolute Nucleated RBC 0.000 Nucleated RBC % (auto) 0.0 Anion Gap 13 Estim Creat Clear Calc 58.1 Estimated GFR > 60 Random Glucose 100 Calcium 9.6 Stl C. cayetanensis PCR Not Detected Stool Rotavirus A PCR Not Detected Stl Adenov F 40/41 PCR Not Detected Stool Astrovirus (PCR) Not Detected Stool Campylobacter PCR Not Detected Stool Cryptosporidium PCR Not Detected Stl Sh Tox Pr E STEC PCR Not Detected Stool E coli O157 PCR Not applicable Stl Enterotoxigenic E PCR Not Detected Stool EPEC (PCR) Not Detected Stool EAEC (PCR) Not Detected Stl E. histolytica PCR Not Detected Stool Giardia Lamblia PCR Not Detected Stl P. shigelloides PCR Not Detected Stool Salmonella PCR Not Detected Stool Sapovirus (PCR) Not Detected Stl Shigella/EIEC PCR Not Detected St Y.enterocolitica PCR Not Detected Stool Vibrio (PCR) Not Detected Stl Vibrio cholerae PCR Not Detected Stl Norovirus GI/GII PCR Not Detected Assessment and Plan (1) Urinary retention: Status: Acute (2) BNC (bladder neck contracture): Status: Acute (3) Hematuria: Status: Acute (4) ABLA (acute blood loss anemia): Status: Acute (5) MARKUS (acute kidney injury): Status: Acute Plan 73-year-old male with a PMH significant for?prostate cancer s/p prostatectomy and radiation therapy complicated by radiation proctitis, CAD s/p PCI in 2014, carotid artery stenosis s/p bilateral carotid stenting, hx of cerebral hemorrhage, epilepsy, HLD, HTN, restless leg syndrome, and anxiety who presents to the ED for evaluation right lower lump, chills and diagnosed to have severe sepsis, MARKUS acute blood loss anemia and hematuria. Severe sepsis due to acute pyelonephritis, urine culture lactobacilus and E. coli. 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 starvation, ketosis, resolved. Acute blood loss anemia d/t hematuria -s/p transfusion 2 units of 12/08 and 1 unit on 12/14 with good effect, h/h lower d/t ongoing anemia, Hgb is 9.7 Chronic diarrhea No recurrent diarrhea, had normal bowel movement has been incontinent of urine and stool x several months CT of abdomen and pelvis showed generalized rectal wall thickening surrounding the stool ball, with surrounding fat stranding consistent with proctitis , similar findings noted on prior imaging studies Previously seen by GI they recommended mesalamine by mouth t.i.d. and cholestyramine. But as per patient he was later instructed to stop these medications. 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 CT 12/11:Moderate stool burden. Otherwise the large and small bowel are normal in caliber. Rectal wall thickening and perirectal inflammatory fat stranding. -bowel regimen CAD/history of bilateral carotid stenting aspirin, Plavix. Uro recommends restarting plavix 48 once bleeding stops HTN--continue Norvasc Mood disorder Continue home meds Moderate protein calorie malnutrition add supplements Full Code DVT Prophylaxis: Mechanical device, d/t active hematuria and anemia needing transfusion Pt will require continued inpatient hospitalization for treatment of hematuria requiring CBI PT is following and doesn't require rehb Quality Stroke Does the patient have a stroke diagnosis?: No VTE Prior VTE?: No VTE Risk Level:: Medical - moderate - high VTE Device Contraindication: N/A - Device Ordered VTE Drug Contraindication: Treatment Not Indicated
[2023-12-23] MEDS: Loperamide HCl 2 MG CAPSULE PO (14:33)
--- NOTE | 2023-12-23 15:32 | PC.NURSE ---
one episode blood clots today, cath irrigated with good effect,
[2023-12-23] MEDS: Mirtazapine 15 MG TABLET PO (21:04)
[2023-12-23] MEDS: QUEtiapine Fumarate 100 MG TABLET PO (21:05)
[2023-12-23] MEDS: rOPINIRole HCL 1 MG TABLET 3 MG PO (21:05)
[2023-12-23] MEDS: PARoxetine HCL 30 MG TABLET 60 MG PO (21:05)
[2023-12-24 03:47] VITALS: BP 139/65; PULSE 87; RESP 16; TEMP 36.4; O2SAT 95
[2023-12-24] MEDS: Loperamide HCl 2 MG CAPSULE PO (06:01)
--- NOTE | 2023-12-24 07:21 | P.PNIM_ITS ---
Subjective Subjective Date of Service: 12/24/23 Interval History: cbi pink, intermittent clotting Physical Exam 2 Vital Signs: Vital Signs: Last Vital Signs Temp 97.6 F 12/24/23 03:47 Pulse 87 12/24/23 03:47 Resp 16 12/24/23 03:47 BP 139/65 12/24/23 03:47 Pulse Ox 95 12/24/23 03:47 O2 Del Method Room Air 12/24/23 03:47 O2 Flow Rate 4 12/13/23 16:19 BMI result Body Mass Index 16.8 Const: Other: General frail , resting comfortably in no acute distress. Neck supple no JVD. CVS regular rate rhythm, Respiratory lungs clear to auscultation, no respiratory distress, no wheeze, no rhonchi. Gastrointestinal abdomen soft, non tender, bowel sounds audible, no guarding , no rigidity. Extremities no edema. Neuro non focal , speech clear. Skin no rash Psych appropriate affect CBI clear urine Objective Data Active Medications Acetaminophen (Acetaminophen 325 Mg Tablet) 650 mg PO Q6H PRN PRN Reason: Pain, Mild (Pain Scale 1-3), fever or headache Last Admin: 12/12/23 02:18 Dose: 650 mg Documented By: TRACY Amlodipine Besylate (Amlodipine Besylate 5 Mg Tablet) 5 mg PO DAILY [facility]; Protocol Last Admin: 12/23/23 08:39 Dose: 5 mg Documented By: SARA Atorvastatin Calcium (Atorvastatin Calcium 80 Mg Tablet) 80 mg PO DAILY [facility] Last Admin: 12/23/23 08:39 Dose: 80 mg Documented By: SARA Benzonatate (Benzonatate 100 Mg Capsule) 100 mg PO TID PRN PRN Reason: Cough Calcium Carbonate (Calcium Carbonate 750 Mg Tab.Chew) 750 mg PO Q4H PRN PRN Reason: Heartburn Cyanocobalamin (Cyanocobalamin (Vitamin B-12) 1,000 Mcg Tablet) 1,000 mcg PO DAILY [facility] Last Admin: 12/23/23 08:39 Dose: 1,000 mcg Documented By: SARA Loperamide HCl (Loperamide Hcl 2 Mg Capsule) 2 mg PO Q6H PRN PRN Reason: Diarrhea Last Admin: 12/24/23 06:01 Dose: 2 mg Documented By: TING Magnesium Hydroxide (Milk Of Magnesia 30 Ml Oral.Susp) 30 ml PO DAILY PRN PRN Reason: Constipation Melatonin (Melatonin 3 Mg Tablet) 6 mg PO BEDTIME PRN PRN Reason: Insomnia Last Admin: 12/22/23 21:15 Dose: 6 mg Documented By: TING Mirtazapine (Mirtazapine 15 Mg Tablet) 15 mg PO BEDTIME [facility] Last Admin: 12/23/23 21:04 Dose: 15 mg Documented By: TING Ondansetron HCl (Ondansetron Hcl 4 Mg/2 Ml Vial) 4 mg IVPUSH Q8H PRN PRN Reason: Nausea and Vomiting Last Admin: 12/12/23 21:24 Dose: 4 mg Documented By: SIMONA Comments: Dry heaving/nausea Paroxetine HCl (Paroxetine Hcl 30 Mg Tablet) 60 mg PO BEDTIME [facility] Last Admin: 12/23/23 21:05 Dose: 60 mg Documented By: TING Polyethylene Glycol (Polyethylene Glycol 3350 17 Gm Powd.Pack) 17 gm PO DAILY PRN PRN Reason: Constipation Last Admin: 12/14/23 20:13 Dose: 17 gm Documented By: DIMA Quetiapine Fumarate (Quetiapine Fumarate 100 Mg Tablet) 100 mg PO BEDTIME [facility] Last Admin: 12/23/23 21:05 Dose: 100 mg Documented By: TING Ropinirole HCl (Ropinirole Hcl 1 Mg Tablet) 3 mg PO BEDTIME [facility] Last Admin: 12/23/23 21:05 Dose: 3 mg Documented By: TING Sodium Bicarbonate (Sodium Bicarbonate 650 Mg Tablet) 650 mg PO BID [facility] Last Admin: 12/23/23 21:05 Dose: 650 mg Documented By: TING Sodium Chloride (0.9 % Sodium Chloride Flush 3 Ml Syringe) [facility] Last Admin: 12/23/23 21:05 Dose: 3 ml Documented By: TING Vitamin D (Cholecalciferol (Vitamin D3) 25 Mcg Tablet) 25 mcg PO DAILY [facility] Last Admin: 12/23/23 08:39 Dose: 25 mcg Documented By: SARA Labs 12/24/23 08:45 12/24/23 07:13 Labs: Laboratory Results - last 24 hr 12/22/23 16:37 Stl C. cayetanensis PCR Not Detected Stool Rotavirus A PCR Not Detected Stl Adenov F 40/41 PCR Not Detected Stool Astrovirus (PCR) Not Detected Stool Campylobacter PCR Not Detected Stool Cryptosporidium PCR Not Detected Stl Sh Tox Pr E STEC PCR Not Detected Stool E coli O157 PCR Not applicable Stl Enterotoxigenic E PCR Not Detected Stool EPEC (PCR) Not Detected Stool EAEC (PCR) Not Detected Stl E. histolytica PCR Not Detected Stool Giardia Lamblia PCR Not Detected Stl P. shigelloides PCR Not Detected Stool Salmonella PCR Not Detected Stool Sapovirus (PCR) Not Detected Stl Shigella/EIEC PCR Not Detected St Y.enterocolitica PCR Not Detected Stool Vibrio (PCR) Not Detected Stl Vibrio cholerae PCR Not Detected Stl Norovirus GI/GII PCR Not Detected Assessment and Plan (1) Urinary retention: Status: Acute (2) BNC (bladder neck contracture): Status: Acute (3) Hematuria: Status: Acute (4) ABLA (acute blood loss anemia): Status: Acute (5) MARKUS (acute kidney injury): Status: Acute Plan 73-year-old male with a PMH significant for?prostate cancer s/p prostatectomy and radiation therapy complicated by radiation proctitis, CAD s/p PCI in 2014, carotid artery stenosis s/p bilateral carotid stenting, hx of cerebral hemorrhage, epilepsy, HLD, HTN, restless leg syndrome, and anxiety who presents to the ED for evaluation right lower lump, chills and diagnosed to have severe sepsis, MARKUS acute blood loss anemia and hematuria. Severe sepsis due to acute pyelonephritis, urine culture lactobacilus and E. coli. 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 starvation, ketosis, resolved. Acute blood loss anemia d/t hematuria -s/p transfusion 2 units of 12/08 and 1 unit on 12/14 with good effect, h/h lower d/t ongoing anemia, Hgb is 9.7 Chronic diarrhea No recurrent diarrhea, had normal bowel movement has been incontinent of urine and stool x several months CT of abdomen and pelvis showed generalized rectal wall thickening surrounding the stool ball, with surrounding fat stranding consistent with proctitis , similar findings noted on prior imaging studies Previously seen by GI they recommended mesalamine by mouth t.i.d. and cholestyramine. But as per patient he was later instructed to stop these medications. 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 CT 12/11:Moderate stool burden. Otherwise the large and small bowel are normal in caliber. Rectal wall thickening and perirectal inflammatory fat stranding. -bowel regimen CAD/history of bilateral carotid stenting aspirin, Plavix. Uro recommends restarting plavix 48 hrs once bleeding stops, but given persistent bleeding more than 2 weeks not sure if good idea HTN--continue Norvasc Mood disorder Continue home meds Moderate protein calorie malnutrition add supplements Full Code DVT Prophylaxis: Mechanical device, d/t active hematuria and anemia needing transfusion Pt will require continued inpatient hospitalization for treatment of hematuria requiring CBI PT is following and doesn't require rehb out of bed, ambulate Quality Stroke Does the patient have a stroke diagnosis?: No VTE Prior VTE?: No VTE Risk Level:: Medical - moderate - high VTE Device Contraindication: N/A - Device Ordered VTE Drug Contraindication: Treatment Not Indicated
[2023-12-24 07:39] VITALS: BP 126/60; PULSE 81; RESP 20; TEMP 36.4; O2SAT 97
[2023-12-24 07:45] LABS: Anion Gap 13 (12-20); Blood Urea Nitrogen 34 mg/dL (9-16); Calcium 9.5 mg/dL (8.4-10.2); Carbon Dioxide 21 mmol/L (22-29); Chloride 109 mmol/L (96-108); Creatinine Clr Calc Pharmacy 49.2; Estimated Glomerular Filt Rate > 60; Glucose Random 93 mg/dL (60-115); Sodium 138 mmol/L (135-145)
[2023-12-24 08:49] LABS: Hemoglobin 9.8 g/dl (14.0-18.0); Mean Corpuscular HGB Conc 32.7 g/dl (31.0-36.0); Mean Corpuscular Hemoglobin 30.2 pg (27.0-33.0); Mean Corpuscular Volume 92.6 fL (80.0-98.0); Mean Platelet Volume 9.1 fL (9.4-12.4); Platelet Count 270 X10*3/uL (160-400); Red Blood Count 3.24 X10*6/uL (4.60-5.80); Red Cell Distribution Width 15.6 % (11.0-16.0); White Blood Count 6.2 X10*3/uL (4.8-10.8)
[2023-12-24] MEDS: amLODIPine Besylate 5 MG TABLET PO (08:54)
[2023-12-24] MEDS: Cyanocobalamin (Vitamin B-12) 1,000 MCG TABLET 1000 MCG PO (08:54)
[2023-12-24] MEDS: Atorvastatin Calcium 80 MG TABLET PO (08:54)
[2023-12-24] MEDS: Sodium Bicarbonate 650 MG TABLET PO ×2 (08:54→21:31)
[2023-12-24] MEDS: Cholecalciferol (Vitamin D3) 25 MCG TABLET PO (08:54)
[2023-12-24] MEDS: 0.9 % Sodium Chloride Flush 3 ML SYRINGE IVFLUSH ×2 (08:55→16:56)
[2023-12-24 09:53] VITALS: BP 126/60; PULSE 81; O2SAT 97
[2023-12-24 11:37] VITALS: BP 116/62; PULSE 86; RESP 20; TEMP 36.6; O2SAT 96
--- NOTE | 2023-12-24 14:57 | MHC.CLN ---
F/U DIET RX: REGULAR-APPROPRIATE. HEALING STAGE II PRESSURE INJURY TO SACRUM. PT RECEIVING ENSURE TID. PROVIDES 1050 KCALS, 60 G PROTEIN. SUPPLEMENT APPROPRIATE TO PROMOTE WOUND HEALING. INTAKE VARIABLE WITH MOST MEALS 100%. MONITOR PO INTAKE AND ENCOURAGE SUPPLEMENT.
[2023-12-24 15:33] VITALS: BP 120/58; PULSE 86; RESP 20; TEMP 36.8; O2SAT 96
[2023-12-24 19:19] VITALS: BP 128/62; PULSE 92; RESP 18; TEMP 36.6; O2SAT 96
[2023-12-24] MEDS: rOPINIRole HCL 1 MG TABLET 3 MG PO (21:30)
[2023-12-24] MEDS: QUEtiapine Fumarate 100 MG TABLET PO (21:30)
[2023-12-24] MEDS: Mirtazapine 15 MG TABLET PO (21:30)
[2023-12-24] MEDS: PARoxetine HCL 30 MG TABLET 60 MG PO (21:31)
[2023-12-25] VITALS (8 sets, daily range): BP systolic 118–160; BP diastolic 56–77; PULSE 80–99; RESP 18–20; TEMP 36.1–36.7; O2SAT 95–98
[2023-12-25 06:35] LABS: Hematocrit 29.3 % (42.0-52.0); Hemoglobin 9.1 g/dl (14.0-18.0); Mean Corpuscular HGB Conc 31.1 g/dl (31.0-36.0); Mean Corpuscular Hemoglobin 28.6 pg (27.0-33.0); Mean Corpuscular Volume 92.1 fL (80.0-98.0); Mean Platelet Volume 9.4 fL (9.4-12.4); Platelet Count 271 X10*3/uL (160-400); Red Blood Count 3.18 X10*6/uL (4.60-5.80); Red Cell Distribution Width 15.6 % (11.0-16.0); White Blood Count 6.3 X10*3/uL (4.8-10.8)
[2023-12-25 06:49] LABS: Anion Gap 12 (12-20); Blood Urea Nitrogen 31 mg/dL (9-16); Calcium 9.3 mg/dL (8.4-10.2); Carbon Dioxide 25 mmol/L (22-29); Chloride 107 mmol/L (96-108); Creatinine Clr Calc Pharmacy 55.2; Estimated Glomerular Filt Rate > 60; Glucose Random 92 mg/dL (60-115); Potassium 4.1 mmol/L (3.3-5.1); Sodium 140 mmol/L (135-145)
[2023-12-25] MEDS: Atorvastatin Calcium 80 MG TABLET PO (07:46)
[2023-12-25] MEDS: Sodium Bicarbonate 650 MG TABLET PO ×2 (07:46→21:36)
[2023-12-25] MEDS: amLODIPine Besylate 5 MG TABLET PO (07:46)
[2023-12-25] MEDS: Cyanocobalamin (Vitamin B-12) 1,000 MCG TABLET 1000 MCG PO (07:47)
[2023-12-25] MEDS: 0.9 % Sodium Chloride Flush 3 ML SYRINGE IVFLUSH ×3 (07:47→21:37)
[2023-12-25] MEDS: Cholecalciferol (Vitamin D3) 25 MCG TABLET PO (07:47)
[2023-12-25] MEDS: rOPINIRole HCL 1 MG TABLET 3 MG PO (21:36)
[2023-12-25] MEDS: QUEtiapine Fumarate 100 MG TABLET PO (21:36)
[2023-12-25] MEDS: PARoxetine HCL 30 MG TABLET 60 MG PO (21:36)
[2023-12-25] MEDS: Mirtazapine 15 MG TABLET PO (21:36)
[2023-12-26] VITALS (7 sets, daily range): BP systolic 101–123; BP diastolic 54–70; PULSE 80–94; RESP 16–20; TEMP 36–37.2; O2SAT 94–97
[2023-12-26 06:57] LABS: Anion Gap 14 (12-20); Blood Urea Nitrogen 32 mg/dL (9-16); Calcium 9.4 mg/dL (8.4-10.2); Carbon Dioxide 22 mmol/L (22-29); Chloride 107 mmol/L (96-108); Creatinine Clr Calc Pharmacy 51.1; Estimated Glomerular Filt Rate > 60; Glucose Random 92 mg/dL (60-115); Potassium 4.2 mmol/L (3.3-5.1); Sodium 139 mmol/L (135-145)
[2023-12-26 07:15] LABS: Hematocrit 30.1 % (42.0-52.0); Hemoglobin 9.5 g/dl (14.0-18.0); Mean Corpuscular HGB Conc 31.6 g/dl (31.0-36.0); Mean Corpuscular Volume 91.8 fL (80.0-98.0); Mean Platelet Volume 10.9 fL (9.4-12.4); Platelet Count 202 X10*3/uL (160-400); Red Blood Count 3.28 X10*6/uL (4.60-5.80); Red Cell Distribution Width 15.6 % (11.0-16.0); White Blood Count 7.3 X10*3/uL (4.8-10.8)
[2023-12-26] MEDS: Atorvastatin Calcium 80 MG TABLET PO (08:32)
[2023-12-26] MEDS: Sodium Bicarbonate 650 MG TABLET PO ×2 (08:32→20:20)
[2023-12-26] MEDS: Cholecalciferol (Vitamin D3) 25 MCG TABLET PO (08:32)
[2023-12-26] MEDS: Cyanocobalamin (Vitamin B-12) 1,000 MCG TABLET 1000 MCG PO (08:32)
[2023-12-26] MEDS: 0.9 % Sodium Chloride Flush 3 ML SYRINGE IVFLUSH ×3 (08:32→20:21)
[2023-12-26] MEDS: amLODIPine Besylate 5 MG TABLET PO (08:32)
--- NOTE | 2023-12-26 09:54 | P.PNIM_ITS ---
Subjective Subjective Date of Service: 12/26/23 Interval History: had few clots overnight when cbi slowed down Physical Exam 2 Vital Signs: Vital Signs: Last Vital Signs Temp 97.9 F 12/26/23 07:18 Pulse 82 12/26/23 07:18 Resp 20 12/26/23 07:18 BP 122/58 L 12/26/23 07:18 Pulse Ox 95 12/26/23 07:18 O2 Del Method Room Air 12/26/23 07:18 O2 Flow Rate 4 12/13/23 16:19 BMI result Body Mass Index 16.8 Const: Other: General frail , resting comfortably in no acute distress. Neck supple no JVD. CVS regular rate rhythm, Respiratory lungs clear to auscultation, no respiratory distress, no wheeze, no rhonchi. Gastrointestinal abdomen soft, non tender, bowel sounds audible, no guarding , no rigidity. Extremities no edema. Neuro non focal , speech clear. Skin no rash Psych appropriate affect CBI clear urine Objective Data Active Medications Acetaminophen (Acetaminophen 325 Mg Tablet) 650 mg PO Q6H PRN PRN Reason: Pain, Mild (Pain Scale 1-3), fever or headache Last Admin: 12/12/23 02:18 Dose: 650 mg Documented By: TRACY Amlodipine Besylate (Amlodipine Besylate 5 Mg Tablet) 5 mg PO DAILY [facility]; Protocol Last Admin: 12/26/23 08:32 Dose: 5 mg Documented By: KVNG Atorvastatin Calcium (Atorvastatin Calcium 80 Mg Tablet) 80 mg PO DAILY [facility] Last Admin: 12/26/23 08:32 Dose: 80 mg Documented By: KVNG Benzonatate (Benzonatate 100 Mg Capsule) 100 mg PO TID PRN PRN Reason: Cough Calcium Carbonate (Calcium Carbonate 750 Mg Tab.Chew) 750 mg PO Q4H PRN PRN Reason: Heartburn Cyanocobalamin (Cyanocobalamin (Vitamin B-12) 1,000 Mcg Tablet) 1,000 mcg PO DAILY [facility] Last Admin: 12/26/23 08:32 Dose: 1,000 mcg Documented By: KVNG Loperamide HCl (Loperamide Hcl 2 Mg Capsule) 2 mg PO Q6H PRN PRN Reason: Diarrhea Last Admin: 12/24/23 06:01 Dose: 2 mg Documented By: TING Magnesium Hydroxide (Milk Of Magnesia 30 Ml Oral.Susp) 30 ml PO DAILY PRN PRN Reason: Constipation Melatonin (Melatonin 3 Mg Tablet) 6 mg PO BEDTIME PRN PRN Reason: Insomnia Last Admin: 12/22/23 21:15 Dose: 6 mg Documented By: TING Mirtazapine (Mirtazapine 15 Mg Tablet) 15 mg PO BEDTIME [facility] Last Admin: 12/25/23 21:36 Dose: 15 mg Documented By: NATY Ondansetron HCl (Ondansetron Hcl 4 Mg/2 Ml Vial) 4 mg IVPUSH Q8H PRN PRN Reason: Nausea and Vomiting Last Admin: 12/12/23 21:24 Dose: 4 mg Documented By: SIMONA Comments: Dry heaving/nausea Paroxetine HCl (Paroxetine Hcl 30 Mg Tablet) 60 mg PO BEDTIME [facility] Last Admin: 12/25/23 21:36 Dose: 60 mg Documented By: NATY Polyethylene Glycol (Polyethylene Glycol 3350 17 Gm Powd.Pack) 17 gm PO DAILY PRN PRN Reason: Constipation Last Admin: 12/14/23 20:13 Dose: 17 gm Documented By: DIMA Quetiapine Fumarate (Quetiapine Fumarate 100 Mg Tablet) 100 mg PO BEDTIME [facility] Last Admin: 12/25/23 21:36 Dose: 100 mg Documented By: NATY Ropinirole HCl (Ropinirole Hcl 1 Mg Tablet) 3 mg PO BEDTIME [facility] Last Admin: 12/25/23 21:36 Dose: 3 mg Documented By: NATY Sodium Bicarbonate (Sodium Bicarbonate 650 Mg Tablet) 650 mg PO BID [facility] Last Admin: 12/26/23 08:32 Dose: 650 mg Documented By: KVNG Sodium Chloride (0.9 % Sodium Chloride Flush 3 Ml Syringe) [facility] Last Admin: 12/26/23 08:32 Dose: 3 ml Documented By: KVNG Vitamin D (Cholecalciferol (Vitamin D3) 25 Mcg Tablet) 25 mcg PO DAILY [facility] Last Admin: 12/26/23 08:32 Dose: 25 mcg Documented By: KVNG Labs 12/26/23 06:09 12/26/23 06:09 Labs: Laboratory Results - last 24 hr 12/26/23 06:09 MCV 91.8 MCH 29.0 MCHC 31.6 RDW 15.6 Plt Count 202 D MPV 10.9 Absolute Nucleated RBC 0.000 Nucleated RBC % (auto) 0.0 Anion Gap 14 Estim Creat Clear Calc 51.1 Estimated GFR > 60 Random Glucose 92 Calcium 9.4 Assessment and Plan (1) Urinary retention: Status: Acute (2) BNC (bladder neck contracture): Status: Acute (3) Hematuria: Status: Acute (4) ABLA (acute blood loss anemia): Status: Acute (5) MARKUS (acute kidney injury): Status: Acute Plan 73-year-old male with a PMH significant for?prostate cancer s/p prostatectomy and radiation therapy complicated by radiation proctitis, CAD s/p PCI in 2014, carotid artery stenosis s/p bilateral carotid stenting, hx of cerebral hemorrhage, epilepsy, HLD, HTN, restless leg syndrome, and anxiety who presents to the ED for evaluation right lower lump, chills and diagnosed to have severe sepsis, MARKUS acute blood loss anemia and hematuria. Severe sepsis due to acute pyelonephritis, urine culture lactobacilus and E. coli. 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 starvation, ketosis, resolved. Acute blood loss anemia d/t hematuria -s/p transfusion 2 units of 12/08 and 1 unit on 12/14 with good effect, h/h lower d/t ongoing anemia, Hgb is 9.7 Chronic diarrhea No recurrent diarrhea, had normal bowel movement has been incontinent of urine and stool x several months CT of abdomen and pelvis showed generalized rectal wall thickening surrounding the stool ball, with surrounding fat stranding consistent with proctitis , similar findings noted on prior imaging studies Previously seen by GI they recommended mesalamine by mouth t.i.d. and cholestyramine. But as per patient he was later instructed to stop these medications. 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 CT 12/11:Moderate stool burden. Otherwise the large and small bowel are normal in caliber. Rectal wall thickening and perirectal inflammatory fat stranding. -bowel regimen CAD/history of bilateral carotid stenting aspirin, Plavix. Uro recommends restarting plavix 48 hrs once bleeding stops, but given persistent bleeding more than 2 weeks not sure if good idea HTN--continue Norvasc Mood disorder Continue home meds Moderate protein calorie malnutrition add supplements Full Code DVT Prophylaxis: Mechanical device, d/t active hematuria and anemia needing transfusion Pt will require continued inpatient hospitalization for treatment of hematuria requiring CBI PT is following and doesn't require rehb out of bed, ambulate with staff Quality Stroke Does the patient have a stroke diagnosis?: No VTE Prior VTE?: No VTE Risk Level:: Medical - moderate - high VTE Device Contraindication: N/A - Device Ordered VTE Drug Contraindication: Treatment Not Indicated
[2023-12-26] MEDS: rOPINIRole HCL 1 MG TABLET 3 MG PO (20:20)
[2023-12-26] MEDS: QUEtiapine Fumarate 100 MG TABLET PO (20:21)
[2023-12-26] MEDS: PARoxetine HCL 30 MG TABLET 60 MG PO (20:21)
[2023-12-26] MEDS: Mirtazapine 15 MG TABLET PO (20:21)
[2023-12-27] VITALS (7 sets, daily range): BP systolic 117–140; BP diastolic 58–73; PULSE 82–91; RESP 18–20; TEMP 36.1–37; O2SAT 94–97
[2023-12-27] MEDS: Cyanocobalamin (Vitamin B-12) 1,000 MCG TABLET 1000 MCG PO (08:42)
[2023-12-27] MEDS: 0.9 % Sodium Chloride Flush 3 ML SYRINGE IVFLUSH ×2 (08:42→15:39)
[2023-12-27] MEDS: amLODIPine Besylate 5 MG TABLET PO (08:42)
[2023-12-27] MEDS: Sodium Bicarbonate 650 MG TABLET PO ×2 (08:42→21:25)
[2023-12-27] MEDS: Cholecalciferol (Vitamin D3) 25 MCG TABLET PO (08:42)
[2023-12-27] MEDS: Atorvastatin Calcium 80 MG TABLET PO (08:42)
--- NOTE | 2023-12-27 10:32 | HO.PM.IMPN ---
Subjective Subjective Date of Service: 12/27/23 Interval History: CBI has been slowed with signficant decrease in need to flush catheter, Physical Exam Vital Signs: Vital Signs: Last Vital Signs Temp 97.0 F 12/27/23 08:00 Pulse 82 12/27/23 08:00 Resp 18 12/27/23 08:00 BP 137/65 12/27/23 08:00 Pulse Ox 95 12/27/23 08:00 O2 Del Method Room Air 12/27/23 08:00 O2 Flow Rate 4 12/13/23 16:19 BMI result Body Mass Index 16.8 Const: Other: General frail , resting comfortably in no acute distress. Neck supple no JVD. CVS regular rate rhythm, Respiratory lungs clear to auscultation, no respiratory distress, no wheeze, no rhonchi. Gastrointestinal abdomen soft, non tender, bowel sounds audible, no guarding , no rigidity. Extremities no edema. Neuro non focal , speech clear. Skin no rash Psych appropriate affect CBI clear urine Objective Data Active Medications Acetaminophen (Acetaminophen 325 Mg Tablet) 650 mg PO Q6H PRN PRN Reason: Pain, Mild (Pain Scale 1-3), fever or headache Last Admin: 12/12/23 02:18 Dose: 650 mg Documented By: RTACY Amlodipine Besylate (Amlodipine Besylate 5 Mg Tablet) 5 mg PO DAILY [facility]; Protocol Last Admin: 12/27/23 08:42 Dose: 5 mg Documented By: KVNG Atorvastatin Calcium (Atorvastatin Calcium 80 Mg Tablet) 80 mg PO DAILY [facility] Last Admin: 12/27/23 08:42 Dose: 80 mg Documented By: KVNG Benzonatate (Benzonatate 100 Mg Capsule) 100 mg PO TID PRN PRN Reason: Cough Calcium Carbonate (Calcium Carbonate 750 Mg Tab.Chew) 750 mg PO Q4H PRN PRN Reason: Heartburn Cyanocobalamin (Cyanocobalamin (Vitamin B-12) 1,000 Mcg Tablet) 1,000 mcg PO DAILY [facility] Last Admin: 12/27/23 08:42 Dose: 1,000 mcg Documented By: KVNG Loperamide HCl (Loperamide Hcl 2 Mg Capsule) 2 mg PO Q6H PRN PRN Reason: Diarrhea Last Admin: 12/24/23 06:01 Dose: 2 mg Documented By: TING Magnesium Hydroxide (Milk Of Magnesia 30 Ml Oral.Susp) 30 ml PO DAILY PRN PRN Reason: Constipation Melatonin (Melatonin 3 Mg Tablet) 6 mg PO BEDTIME PRN PRN Reason: Insomnia Last Admin: 12/22/23 21:15 Dose: 6 mg Documented By: TING Mirtazapine (Mirtazapine 15 Mg Tablet) 15 mg PO BEDTIME [facility] Last Admin: 12/26/23 20:21 Dose: 15 mg Documented By: ANDREA Ondansetron HCl (Ondansetron Hcl 4 Mg/2 Ml Vial) 4 mg IVPUSH Q8H PRN PRN Reason: Nausea and Vomiting Last Admin: 12/12/23 21:24 Dose: 4 mg Documented By: SIMONA Comments: Dry heaving/nausea Paroxetine HCl (Paroxetine Hcl 30 Mg Tablet) 60 mg PO BEDTIME [facility] Last Admin: 12/26/23 20:21 Dose: 60 mg Documented By: ANDREA Polyethylene Glycol (Polyethylene Glycol 3350 17 Gm Powd.Pack) 17 gm PO DAILY PRN PRN Reason: Constipation Last Admin: 12/14/23 20:13 Dose: 17 gm Documented By: DIMA Quetiapine Fumarate (Quetiapine Fumarate 100 Mg Tablet) 100 mg PO BEDTIME [facility] Last Admin: 12/26/23 20:21 Dose: 100 mg Documented By: ANDREA Ropinirole HCl (Ropinirole Hcl 1 Mg Tablet) 3 mg PO BEDTIME [facility] Last Admin: 12/26/23 20:20 Dose: 3 mg Documented By: ANDREA Sodium Bicarbonate (Sodium Bicarbonate 650 Mg Tablet) 650 mg PO BID [facility] Last Admin: 12/27/23 08:42 Dose: 650 mg Documented By: KVNG Sodium Chloride (0.9 % Sodium Chloride Flush 3 Ml Syringe) 3 ml IVFLUSH QSHIFT [facility] Last Admin: 12/27/23 08:42 Dose: 3 ml Documented By: KVNG Vitamin D (Cholecalciferol (Vitamin D3) 25 Mcg Tablet) 25 mcg PO DAILY [facility] Last Admin: 12/27/23 08:42 Dose: 25 mcg Documented By: KVNG Labs 12/26/23 06:09 12/26/23 06:09 Assessment and Plan (1) Urinary retention: Status: Acute (2) BNC (bladder neck contracture): Status: Acute (3) Hematuria: Status: Acute Plan 73-year-old male with a PMH significant for?prostate cancer s/p prostatectomy and radiation therapy complicated by radiation proctitis, CAD s/p PCI in 2014, carotid artery stenosis s/p bilateral carotid stenting, hx of cerebral hemorrhage, epilepsy, HLD, HTN, restless leg syndrome, and anxiety who presents to the ED for evaluation right lower lump, chills and diagnosed to have severe sepsis, MARKUS acute blood loss anemia and hematuria. Severe sepsis due to acute pyelonephritis, urine culture lactobacilus and E. coli. 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 starvation, ketosis, resolved. Acute blood loss anemia d/t hematuria -s/p transfusion 2 units of 12/08 and 1 unit on 12/14 with good effect, h/h lower d/t ongoing anemia, Hgb is 9.7 Chronic diarrhea No recurrent diarrhea, had normal bowel movement has been incontinent of urine and stool x several months CT of abdomen and pelvis showed generalized rectal wall thickening surrounding the stool ball, with surrounding fat stranding consistent with proctitis , similar findings noted on prior imaging studies Previously seen by GI they recommended mesalamine by mouth t.i.d. and cholestyramine. But as per patient he was later instructed to stop these medications. 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 CT 12/11:Moderate stool burden. Otherwise the large and small bowel are normal in caliber. Rectal wall thickening and perirectal inflammatory fat stranding. -bowel regimen CAD/history of bilateral carotid stenting aspirin, Plavix. Uro recommends restarting plavix 48 hrs once bleeding stops, but given persistent bleeding more than 2 weeks not sure if good idea HTN--continue Norvasc Mood disorder Continue home meds Moderate protein calorie malnutrition add supplements Full Code DVT Prophylaxis: Mechanical device, d/t active hematuria and anemia needing transfusion Pt will require continued inpatient hospitalization for treatment of hematuria requiring CBI PT is following and doesn't require rehb out of bed, ambulate with staff Quality Stroke Does the patient have a stroke diagnosis?: No VTE Prior VTE?: No VTE Risk Level:: Medical - moderate - high VTE Device Contraindication: N/A - Device Ordered VTE Drug Contraindication: Treatment Not Indicated
--- NOTE | 2023-12-27 10:56 | MHC.CLN ---
F/U DIET RX: REGULAR-APPROPRIATE. HEALING STAGE II PRESSURE INJURY TO SACRUM. PT RECEIVING ENSURE TID. PROVIDES 1050 KCALS, 60 G PROTEIN. SUPPLEMENT APPROPRIATE TO PROMOTE SKIN INTEGRITY.. INTAKE VARIABLE, 50-100%. MONITOR PO INTAKE AND ENCOURAGE SUPPLEMENT.
[2023-12-27] MEDS: Mirtazapine 15 MG TABLET PO (21:25)
[2023-12-27] MEDS: QUEtiapine Fumarate 100 MG TABLET PO (21:25)
[2023-12-27] MEDS: PARoxetine HCL 30 MG TABLET 60 MG PO (21:25)
[2023-12-27] MEDS: rOPINIRole HCL 1 MG TABLET 3 MG PO (21:25)
[2023-12-28] VITALS (7 sets, daily range): BP systolic 113–147; BP diastolic 64–71; PULSE 80–94; RESP 16–20; TEMP 36.3–37.4; O2SAT 95–98
[2023-12-28] MEDS: 0.9 % Sodium Chloride Flush 3 ML SYRINGE IVFLUSH ×4 (00:20→21:32)
[2023-12-28 06:45] LABS: Hematocrit 31.9 % (42.0-52.0); Hemoglobin 10.1 g/dl (14.0-18.0); Mean Corpuscular HGB Conc 31.7 g/dl (31.0-36.0); Mean Corpuscular Hemoglobin 29.2 pg (27.0-33.0); Mean Corpuscular Volume 92.2 fL (80.0-98.0); Mean Platelet Volume 9.5 fL (9.4-12.4); Platelet Count 287 X10*3/uL (160-400); Red Blood Count 3.46 X10*6/uL (4.60-5.80); Red Cell Distribution Width 15.5 % (11.0-16.0)
[2023-12-28 07:00] LABS: Anion Gap 11 (12-20); Blood Urea Nitrogen 35 mg/dL (9-16); Calcium 9.6 mg/dL (8.4-10.2); Carbon Dioxide 23 mmol/L (22-29); Chloride 108 mmol/L (96-108); Creatinine Clr Calc Pharmacy 45.1; Estimated Glomerular Filt Rate 59; Glucose Random 93 mg/dL (60-115); Potassium 4.4 mmol/L (3.3-5.1); Sodium 138 mmol/L (135-145)
[2023-12-28] MEDS: amLODIPine Besylate 5 MG TABLET PO (08:12)
[2023-12-28] MEDS: Sodium Bicarbonate 650 MG TABLET PO ×2 (08:12→21:24)
[2023-12-28] MEDS: Cyanocobalamin (Vitamin B-12) 1,000 MCG TABLET 1000 MCG PO (08:12)
[2023-12-28] MEDS: Cholecalciferol (Vitamin D3) 25 MCG TABLET PO (08:12)
[2023-12-28] MEDS: Atorvastatin Calcium 80 MG TABLET PO (08:12)
--- NOTE | 2023-12-28 16:01 | P.PNIM_ITS ---
Subjective Subjective Date of Service: 12/28/23 Interval History: recurrent hematuria Review of Systems cbi -still draining puch colour no pain or fever Physical Exam 2 Vital Signs: Vital Signs: Last Vital Signs Temp 97.7 F 12/28/23 15:08 Pulse 94 12/28/23 15:08 Resp 18 12/28/23 15:08 BP 123/64 12/28/23 15:08 Pulse Ox 97 12/28/23 15:08 O2 Del Method Room Air 12/28/23 15:08 O2 Flow Rate 4 12/13/23 16:19 BMI result Body Mass Index 16.8 CVS :regular rate rhythm, Res: lungs clear to auscultation, no respiratory distress, no wheezing or rales. Gi: abdomen soft, non tender, bowel sounds audible, no guarding , no rigidity. Extremities no edema. Neuro non focal , speech clear. Skin no rash Psych appropriate affect CBI -Punch colour urine Objective Data Active Medications Acetaminophen (Acetaminophen 325 Mg Tablet) 650 mg PO Q6H PRN PRN Reason: Pain, Mild (Pain Scale 1-3), fever or headache Last Admin: 12/12/23 02:18 Dose: 650 mg Documented By: TRACY Amlodipine Besylate (Amlodipine Besylate 5 Mg Tablet) 5 mg PO DAILY [facility]; Protocol Last Admin: 12/28/23 08:12 Dose: 5 mg Documented By: KVNG Atorvastatin Calcium (Atorvastatin Calcium 80 Mg Tablet) 80 mg PO DAILY [facility] Last Admin: 12/28/23 08:12 Dose: 80 mg Documented By: KVNG Benzonatate (Benzonatate 100 Mg Capsule) 100 mg PO TID PRN PRN Reason: Cough Calcium Carbonate (Calcium Carbonate 750 Mg Tab.Chew) 750 mg PO Q4H PRN PRN Reason: Heartburn Cyanocobalamin (Cyanocobalamin (Vitamin B-12) 1,000 Mcg Tablet) 1,000 mcg PO DAILY [facility] Last Admin: 12/28/23 08:12 Dose: 1,000 mcg Documented By: KVNG Tranexamic Acid 1,000 mg/ (Sodium Chloride) 60 mls @ 360 mls/hr IV ONCE ONE Stop: 12/28/23 15:59 Loperamide HCl (Loperamide Hcl 2 Mg Capsule) 2 mg PO Q6H PRN PRN Reason: Diarrhea Last Admin: 12/24/23 06:01 Dose: 2 mg Documented By: TING Magnesium Hydroxide (Milk Of Magnesia 30 Ml Oral.Susp) 30 ml PO DAILY PRN PRN Reason: Constipation Melatonin (Melatonin 3 Mg Tablet) 6 mg PO BEDTIME PRN PRN Reason: Insomnia Last Admin: 12/22/23 21:15 Dose: 6 mg Documented By: TING Mirtazapine (Mirtazapine 15 Mg Tablet) 15 mg PO BEDTIME [facility] Last Admin: 12/27/23 21:25 Dose: 15 mg Documented By: NANCI Ondansetron HCl (Ondansetron Hcl 4 Mg/2 Ml Vial) 4 mg IVPUSH Q8H PRN PRN Reason: Nausea and Vomiting Last Admin: 12/12/23 21:24 Dose: 4 mg Documented By: SIMONA Comments: Dry heaving/nausea Paroxetine HCl (Paroxetine Hcl 30 Mg Tablet) 60 mg PO BEDTIME [facility] Last Admin: 12/27/23 21:25 Dose: 60 mg Documented By: NANCI Polyethylene Glycol (Polyethylene Glycol 3350 17 Gm Powd.Pack) 17 gm PO DAILY PRN PRN Reason: Constipation Last Admin: 12/14/23 20:13 Dose: 17 gm Documented By: DIMA Quetiapine Fumarate (Quetiapine Fumarate 100 Mg Tablet) 100 mg PO BEDTIME [facility] Last Admin: 12/27/23 21:25 Dose: 100 mg Documented By: NANCI Ropinirole HCl (Ropinirole Hcl 1 Mg Tablet) 3 mg PO BEDTIME [facility] Last Admin: 12/27/23 21:25 Dose: 3 mg Documented By: NANCI Sodium Bicarbonate (Sodium Bicarbonate 650 Mg Tablet) 650 mg PO BID [facility] Last Admin: 12/28/23 08:12 Dose: 650 mg Documented By: KVNG Sodium Chloride (0.9 % Sodium Chloride Flush 3 Ml Syringe) 3 ml IVFLUSH [facility] Last Admin: 12/28/23 15:11 Dose: 3 ml Documented By: KVNG Vitamin D (Cholecalciferol (Vitamin D3) 25 Mcg Tablet) 25 mcg PO DAILY [facility] Last Admin: 12/28/23 08:12 Dose: 25 mcg Documented By: KVNG Labs 12/28/23 06:16 12/28/23 06:16 Labs: Laboratory Results - last 24 hr 12/28/23 06:16 MCV 92.2 MCH 29.2 MCHC 31.7 RDW 15.5 Plt Count 287 D MPV 9.5 Absolute Nucleated RBC 0.000 Nucleated RBC % (auto) 0.0 Anion Gap 11 L Estim Creat Clear Calc 45.1 Estimated GFR 59 Random Glucose 93 Calcium 9.6 Assessment and Plan (1) Urinary retention: Status: Acute (2) Hematuria: Status: Acute Assessment and Plan: 73-year-old male with a PMH significant for?prostate cancer s/p prostatectomy and radiation therapy complicated by radiation proctitis, CAD s/p PCI in 2014, carotid artery stenosis s/p bilateral carotid stenting, hx of cerebral hemorrhage, epilepsy, HLD, HTN, restless leg syndrome, and anxiety who presents to the ED for evaluation right lower lump, chills and diagnosed to have severe sepsis, MARKUS acute blood loss anemia and hematuria. Severe sepsis due to acute pyelonephritis, urine culture lactobacilus and E. coli. sepsis resolved completed 14d IV antibiotics. 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 s/p Cystoscopy, clot evacuation, failed attempt at retrograde on 12/12 cbi punch colour urine , urology rec : tranexamic acid IV x1 dose . Acute kidney injury--likely from obstructive uropathy, Cr nl - resolved with Epps, will likely need chronic epps. Metabolic acidosis d/t renal failure, elevated B-hydroxy? starvation, ketosis, resolved. Acute blood loss anemia d/t hematuria -s/p transfusion 2 units of 12/08 and 1 unit on 12/14 with good effect, h/h lower d/t ongoing anemia, Hgb is 9.7 Chronic diarrhea No recurrent diarrhea, had normal bowel movement has been incontinent of urine and stool x several months CT of abdomen and pelvis showed generalized rectal wall thickening surrounding the stool ball, with surrounding fat stranding consistent with proctitis , similar findings noted on prior imaging studies Previously seen by GI they recommended mesalamine by mouth t.i.d. and cholestyramine. But as per patient he was later instructed to stop these medications. 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 CT 12/11:Moderate stool burden. Otherwise the large and small bowel are normal in caliber. Rectal wall thickening and perirectal inflammatory fat stranding. -bowel regimen CAD/history of bilateral carotid stenting aspirin, Plavix. Uro recommends restarting plavix 48 hrs once bleeding stops, but given persistent bleeding more than 2 weeks . urology follow up-added tranexemic iv x1 dose . HTN--continue Norvasc Mood disorder:Continue home meds. Moderate protein calorie malnutrition add supplements DVT Prophylaxis: Mechanical device, d/t active hematuria and anemia needing transfusion Pt will require continued inpatient hospitalization for treatment of hematuria requiring CBI PT is following and doesn't require rehab, ongoing need for hospitlisation :hematuria -need iv tranexemic iv ,h/h monitering , urology followup Quality Stroke Does the patient have a stroke diagnosis?: No VTE Prior VTE?: No VTE Risk Level:: Medical - moderate - high VTE Device Contraindication: N/A - Device Ordered VTE Drug Contraindication: Treatment Not Indicated
[2023-12-28] MEDS: Tranexamic Acid 1,000 MG in 0.9 % Sodium Chloride 50 ML 360 MG IV (16:59)
[2023-12-28] MEDS: PARoxetine HCL 30 MG TABLET 60 MG PO (21:24)
[2023-12-28] MEDS: QUEtiapine Fumarate 100 MG TABLET PO (21:24)
[2023-12-28] MEDS: Mirtazapine 15 MG TABLET PO (21:24)
[2023-12-28] MEDS: rOPINIRole HCL 1 MG TABLET 3 MG PO (21:24)
[2023-12-28] MEDS: Melatonin 3 MG TABLET 6 MG PO (21:25)
[2023-12-29] VITALS (10 sets, daily range): BP systolic 113–142; BP diastolic 56–76; PULSE 78–97; RESP 18–20; TEMP 36.2–37.4; O2SAT 94–99
[2023-12-29 06:22] LABS: Anion Gap 13 (12-20); Blood Urea Nitrogen 31 mg/dL (9-16); Calcium 9.7 mg/dL (8.4-10.2); Carbon Dioxide 25 mmol/L (22-29); Chloride 105 mmol/L (96-108); Creatinine Clr Calc Pharmacy 48.3; Estimated Glomerular Filt Rate > 60; Glucose Random 133 mg/dL (60-115); Hematocrit 32.1 % (42.0-52.0); Hemoglobin 10.1 g/dl (14.0-18.0); Mean Corpuscular HGB Conc 31.5 g/dl (31.0-36.0); Mean Corpuscular Hemoglobin 29.2 pg (27.0-33.0); Mean Corpuscular Volume 92.8 fL (80.0-98.0); Mean Platelet Volume 9.5 fL (9.4-12.4); Platelet Count 274 X10*3/uL (160-400); Potassium 4.4 mmol/L (3.3-5.1); Red Blood Count 3.46 X10*6/uL (4.60-5.80); Red Cell Distribution Width 15.4 % (11.0-16.0); Sodium 139 mmol/L (135-145); White Blood Count 8.6 X10*3/uL (4.8-10.8)
[2023-12-29] MEDS: Cholecalciferol (Vitamin D3) 25 MCG TABLET PO (08:36)
[2023-12-29] MEDS: Sodium Bicarbonate 650 MG TABLET PO ×2 (08:36→21:56)
[2023-12-29] MEDS: Cyanocobalamin (Vitamin B-12) 1,000 MCG TABLET 1000 MCG PO (08:36)
[2023-12-29] MEDS: amLODIPine Besylate 5 MG TABLET PO (08:36)
[2023-12-29] MEDS: 0.9 % Sodium Chloride Flush 3 ML SYRINGE IVFLUSH ×3 (08:36→21:55)
[2023-12-29] MEDS: Atorvastatin Calcium 80 MG TABLET PO (08:36)
--- NOTE | 2023-12-29 10:04 | MHC.CLN ---
F/U PO INTAKE 100% DIET RX: REGULAR-APPROPRIATE PT RECEIVING ENURE TID TO PROMOTE WOUND HEALING ENSURE PROVIDES 1050KCALS, 60G PROTEIN WITH 100% ACCEPTANCE MONITOR PO INTAKE AND ENCOURAGE SUPPLEMENT
--- NOTE | 2023-12-29 14:22 | P.PNIM_ITS ---
Subjective Subjective Date of Service: 12/29/23 Interval History: Hematuria Review of Systems So far today urine is clear Denies any abdominal pain or nausea vomiting. Physical Exam 2 Vital Signs: Vital Signs: Last Vital Signs Temp 97.6 F 12/29/23 12:00 Pulse 93 12/29/23 12:00 Resp 18 12/29/23 12:00 BP 113/61 12/29/23 12:00 Pulse Ox 98 12/29/23 12:00 O2 Del Method Room Air 12/29/23 12:00 O2 Flow Rate 4 12/13/23 16:19 BMI result Body Mass Index 16.8 CVS :regular rate rhythm, Res: lungs clear to auscultation, no respiratory distress, no wheezing or rales. Gi: abdomen soft, non tender, bowel sounds audible, no guarding , no rigidity. Extremities no edema. Neuro non focal , speech clear. Skin no rash Psych appropriate affect CBI -Punch colour urine Objective Data Active Medications Acetaminophen (Acetaminophen 325 Mg Tablet) 650 mg PO Q6H PRN PRN Reason: Pain, Mild (Pain Scale 1-3), fever or headache Last Admin: 12/12/23 02:18 Dose: 650 mg Documented By: TRACY Amlodipine Besylate (Amlodipine Besylate 5 Mg Tablet) 5 mg PO DAILY [facility]; Protocol Last Admin: 12/29/23 08:36 Dose: 5 mg Documented By: RAJANI Atorvastatin Calcium (Atorvastatin Calcium 80 Mg Tablet) 80 mg PO DAILY [facility] Last Admin: 12/29/23 08:36 Dose: 80 mg Documented By: RAJANI Benzonatate (Benzonatate 100 Mg Capsule) 100 mg PO TID PRN PRN Reason: Cough Calcium Carbonate (Calcium Carbonate 750 Mg Tab.Chew) 750 mg PO Q4H PRN PRN Reason: Heartburn Cyanocobalamin (Cyanocobalamin (Vitamin B-12) 1,000 Mcg Tablet) 1,000 mcg PO DAILY [facility] Last Admin: 12/29/23 08:36 Dose: 1,000 mcg Documented By: RAJANI Loperamide HCl (Loperamide Hcl 2 Mg Capsule) 2 mg PO Q6H PRN PRN Reason: Diarrhea Last Admin: 12/24/23 06:01 Dose: 2 mg Documented By: TING Magnesium Hydroxide (Milk Of Magnesia 30 Ml Oral.Susp) 30 ml PO DAILY PRN PRN Reason: Constipation Melatonin (Melatonin 3 Mg Tablet) 6 mg PO BEDTIME PRN PRN Reason: Insomnia Last Admin: 12/28/23 21:25 Dose: 6 mg Documented By: NATY Mirtazapine (Mirtazapine 15 Mg Tablet) 15 mg PO BEDTIME [facility] Last Admin: 12/28/23 21:24 Dose: 15 mg Documented By: NATY Ondansetron HCl (Ondansetron Hcl 4 Mg/2 Ml Vial) 4 mg IVPUSH Q8H PRN PRN Reason: Nausea and Vomiting Last Admin: 12/12/23 21:24 Dose: 4 mg Documented By: SIMONA Comments: Dry heaving/nausea Paroxetine HCl (Paroxetine Hcl 30 Mg Tablet) 60 mg PO BEDTIME [facility] Last Admin: 12/28/23 21:24 Dose: 60 mg Documented By: NATY Polyethylene Glycol (Polyethylene Glycol 3350 17 Gm Powd.Pack) 17 gm PO DAILY PRN PRN Reason: Constipation Last Admin: 12/14/23 20:13 Dose: 17 gm Documented By: DIMA Quetiapine Fumarate (Quetiapine Fumarate 100 Mg Tablet) 100 mg PO BEDTIME [facility] Last Admin: 12/28/23 21:24 Dose: 100 mg Documented By: NATY Ropinirole HCl (Ropinirole Hcl 1 Mg Tablet) 3 mg PO BEDTIME [facility] Last Admin: 12/28/23 21:24 Dose: 3 mg Documented By: NATY Sodium Bicarbonate (Sodium Bicarbonate 650 Mg Tablet) 650 mg PO BID [facility] Last Admin: 12/29/23 08:36 Dose: 650 mg Documented By: RAJANI Sodium Chloride (0.9 % Sodium Chloride Flush 3 Ml Syringe) 3 ml IVFLUSH QSHIFT [facility] Last Admin: 12/29/23 08:36 Dose: 3 ml Documented By: RAJANI Vitamin D (Cholecalciferol (Vitamin D3) 25 Mcg Tablet) 25 mcg PO DAILY [facility] Last Admin: 12/29/23 08:36 Dose: 25 mcg Documented By: RAJANI Labs 12/29/23 05:57 12/29/23 05:57 Labs: Laboratory Results - last 24 hr 12/29/23 05:57 MCV 92.8 MCH 29.2 MCHC 31.5 RDW 15.4 Plt Count 274 MPV 9.5 Absolute Nucleated RBC 0.000 Nucleated RBC % (auto) 0.0 Anion Gap 13 Estim Creat Clear Calc 48.3 Estimated GFR > 60 Random Glucose 133 H Calcium 9.7 Assessment and Plan (1) Hematuria: Status: Acute Assessment and Plan: 73-year-old male with a PMH significant for?prostate cancer s/p prostatectomy and radiation therapy complicated by radiation proctitis, CAD s/p PCI in 2014, carotid artery stenosis s/p bilateral carotid stenting, hx of cerebral hemorrhage, epilepsy, HLD, HTN, restless leg syndrome, and anxiety who presents to the ED for evaluation right lower lump, chills and diagnosed to have severe sepsis, MARKUS acute blood loss anemia and hematuria. Severe sepsis due to acute pyelonephritis, urine culture lactobacilus and E. coli. sepsis resolved completed 14d IV antibiotics. 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 s/p Cystoscopy, clot evacuation, failed attempt at retrograde on 12/12. cbi punch colour urine , urology rec : tranexamic acid IV x1 dose(12/29/23) . Acute kidney injury--likely from obstructive uropathy, Cr nl - resolved with Epps, will likely need chronic epps. Metabolic acidosis d/t renal failure, elevated B-hydroxy? starvation, ketosis, resolved. Acute blood loss anemia d/t hematuria -s/p transfusion 2 units of 12/08 and 1 unit on 12/14 with good effect, h/h lower d/t ongoing anemia, Hgb is 9.7 Chronic diarrhea No recurrent diarrhea, had normal bowel movement has been incontinent of urine and stool x several months CT of abdomen and pelvis showed generalized rectal wall thickening surrounding the stool ball, with surrounding fat stranding consistent with proctitis , similar findings noted on prior imaging studies Previously seen by GI they recommended mesalamine by mouth t.i.d. and cholestyramine. But as per patient he was later instructed to stop these medications. 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 CT 12/11:Moderate stool burden. Otherwise the large and small bowel are normal in caliber. Rectal wall thickening and perirectal inflammatory fat stranding. -bowel regimen CAD/history of bilateral carotid stenting aspirin, Plavix. Uro recommends restarting plavix 48 hrs once bleeding stops, but given persistent bleeding more than 2 weeks . urology follow up-added tranexemic iv x1 dose . HTN--continue Norvasc Mood disorder:Continue home meds. Moderate protein calorie malnutrition add supplements DVT Prophylaxis: Mechanical device, d/t active hematuria and anemia needing transfusion Pt will require continued inpatient hospitalization for treatment of hematuria requiring CBI PT is following and doesn't require rehab, ongoing need for hospitlisation :hematuria -clearing , moniter h/h ,if no further bleeding -will d/w plan with urology (2) Urinary retention: Status: Acute Quality Stroke Does the patient have a stroke diagnosis?: No VTE Prior VTE?: No VTE Risk Level:: Medical - moderate - high VTE Device Contraindication: N/A - Device Ordered VTE Drug Contraindication: Treatment Not Indicated
[2023-12-29] MEDS: Milk of Magnesia 30 ML ORAL.SUSP PO (16:22)
[2023-12-29] MEDS: rOPINIRole HCL 1 MG TABLET 3 MG PO (21:55)
[2023-12-29] MEDS: Melatonin 3 MG TABLET 6 MG PO (21:56)
[2023-12-29] MEDS: PARoxetine HCL 30 MG TABLET 60 MG PO (21:56)
[2023-12-29] MEDS: Mirtazapine 15 MG TABLET PO (21:56)
[2023-12-29] MEDS: QUEtiapine Fumarate 100 MG TABLET PO (21:56)
[2023-12-30] VITALS (8 sets, daily range): BP systolic 103–142; BP diastolic 53–67; PULSE 78–96; RESP 16–19; TEMP 36.3–37.1; O2SAT 92–98
--- NOTE | 2023-12-30 02:15 | PC.NURSE ---
Sesay catheter irrigated due to blockage, bright red urine noted in drainage bag. Several clots noted after irrigation, pt tolerated well. Drainage bag also changed at this time due to large amounts of sediment noted along tubing.
[2023-12-30 07:56] LABS: Hematocrit 31.8 % (42.0-52.0); Hemoglobin 9.9 g/dl (14.0-18.0); Mean Corpuscular HGB Conc 31.1 g/dl (31.0-36.0); Mean Corpuscular Hemoglobin 28.9 pg (27.0-33.0); Mean Platelet Volume 10.1 fL (9.4-12.4); Platelet Count 284 X10*3/uL (160-400); Red Blood Count 3.42 X10*6/uL (4.60-5.80); Red Cell Distribution Width 15.3 % (11.0-16.0); White Blood Count 11.4 X10*3/uL (4.8-10.8)
[2023-12-30 07:59] LABS: Anion Gap 12 (12-20); Blood Urea Nitrogen 34 mg/dL (9-16); Calcium 9.5 mg/dL (8.4-10.2); Carbon Dioxide 24 mmol/L (22-29); Chloride 104 mmol/L (96-108); Creatinine Clr Calc Pharmacy 48.3; Estimated Glomerular Filt Rate > 60; Glucose Random 105 mg/dL (60-115); Potassium 4.3 mmol/L (3.3-5.1); Sodium 136 mmol/L (135-145)
[2023-12-30] MEDS: 0.9 % Sodium Chloride Flush 3 ML SYRINGE IVFLUSH (08:11)
[2023-12-30] MEDS: Cyanocobalamin (Vitamin B-12) 1,000 MCG TABLET 1000 MCG PO (08:11)
[2023-12-30] MEDS: Sodium Bicarbonate 650 MG TABLET PO ×2 (08:11→21:17)
[2023-12-30] MEDS: amLODIPine Besylate 5 MG TABLET PO (08:11)
[2023-12-30] MEDS: Atorvastatin Calcium 80 MG TABLET PO (08:11)
[2023-12-30] MEDS: Cholecalciferol (Vitamin D3) 25 MCG TABLET PO (08:11)
--- NOTE | 2023-12-30 10:30 | MHC.CM.PN ---
Per ROUNDS discussion, Patient has hematuria and is not yet medically cleared for dc. PT is recommending home with services and CM will continue to follow.
[2023-12-30] MEDS: Tranexamic Acid 1,000 MG in 0.9 % Sodium Chloride 50 ML 360 MG IV (10:31)
--- NOTE | 2023-12-30 11:38 | HO.WOUND ---
Wound Consult: Follow up 73yr old?Male admitted to [facility] on 12/04/23 - See progress notes and H&P for detailed history.? Wound consult follow up for Coccyx wound.? Patient agreeable to assessment and photo documentation.? Patient is noted for incontinence of loose stool. Sacrum, Coccyx and perianal area on admission 12/16/23 12/30/23 Sacrum Etiology: Healed - Stage 2 Pressure Injury ??Present on Admission Wound Bed: resurfacing - red blanchable tissue Drainage / Odor: none Ernestine wound: MASD ? No Induration, Fluctuance or Warmth noted Pain: no pain reported Goals of Treatment: ? Off Load pressure and foam dressing to aid in pressure redistribution Buttock and Perianal - continues with Incontinence Associated Dermatitis Etiology: MASD Moisture Associated Skin Damage Wound Bed: improving pink blanchable tissue Drainage / Odor: none Edges: ?mirrored Ernestine wound: MASD ? No Induration, Fluctuance or Warmth noted Pain: tenderness reported when cleansing Goals of Treatment Barrier cream to protect from moisture and friction No new topical recommendations needed at this time. Recommendations: 1. Turn and Reposition every 2 hours and as needed for patient comfort.? Use pillows or wedges to support off loading positions. 2. Off Load all bony prominences with use of pillows and heel boots if needed.? Apply Preventative foams where needed. ? 3. Monitor for incontinence and moisture control, use barrier creams when needed for prevention and treatment. 4. Provide adequate and supplemental nutrition.? 5. Continue low air loss mattress. 6. When applicable maintain blood glucose levels per Providers order. 7. Sacrum - Off Load Pressure - Cleanse with Ph balanced wipes. apply sacral foam dressing Change every 5 days and PRN. 8. Buttock and Perianal - Cleanse with Ph balanced wipes. Apply barrier cream to protect from moisture and friction twice daily and PRN. Re-consult wound care Nurse for wound deterioration or wound changes.
--- NOTE | 2023-12-30 15:02 | P.PNIM_ITS ---
Subjective Subjective Date of Service: 12/30/23 Interval History: Intermittent hematuria especially with activity Review of Systems Denies any chest pain or shortness of breath or new symptoms Physical Exam 2 Vital Signs: Vital Signs: Last Vital Signs Temp 97.4 F 12/30/23 12:00 Pulse 86 12/30/23 12:00 Resp 19 12/30/23 12:00 BP 118/67 12/30/23 12:00 Pulse Ox 98 12/30/23 12:00 O2 Del Method Room Air 12/30/23 12:00 O2 Flow Rate 4 12/13/23 16:19 BMI result Body Mass Index 16.8 CVS :regular rate rhythm, Res: lungs clear to auscultation, no respiratory distress, no wheezing or rales. Gi: abdomen soft, non tender, bowel sounds audible, no guarding , no rigidity. Extremities no edema. Neuro non focal , speech clear. Skin no rash Psych appropriate affect CBI -Punch colour urine Objective Data Active Medications Acetaminophen (Acetaminophen 325 Mg Tablet) 650 mg PO Q6H PRN PRN Reason: Pain, Mild (Pain Scale 1-3), fever or headache Last Admin: 12/12/23 02:18 Dose: 650 mg Documented By: TRACY Amlodipine Besylate (Amlodipine Besylate 5 Mg Tablet) 5 mg PO DAILY [facility]; Protocol Last Admin: 12/30/23 08:11 Dose: 5 mg Documented By: RAJANI Atorvastatin Calcium (Atorvastatin Calcium 80 Mg Tablet) 80 mg PO DAILY [facility] Last Admin: 12/30/23 08:11 Dose: 80 mg Documented By: RAJANI Benzonatate (Benzonatate 100 Mg Capsule) 100 mg PO TID PRN PRN Reason: Cough Calcium Carbonate (Calcium Carbonate 750 Mg Tab.Chew) 750 mg PO Q4H PRN PRN Reason: Heartburn Cyanocobalamin (Cyanocobalamin (Vitamin B-12) 1,000 Mcg Tablet) 1,000 mcg PO DAILY [facility] Last Admin: 12/30/23 08:11 Dose: 1,000 mcg Documented By: RAJANI Loperamide HCl (Loperamide Hcl 2 Mg Capsule) 2 mg PO Q6H PRN PRN Reason: Diarrhea Last Admin: 12/24/23 06:01 Dose: 2 mg Documented By: TING Magnesium Hydroxide (Milk Of Magnesia 30 Ml Oral.Susp) 30 ml PO DAILY PRN PRN Reason: Constipation Last Admin: 12/29/23 16:22 Dose: 30 ml Documented By: RAJANI Melatonin (Melatonin 3 Mg Tablet) 6 mg PO BEDTIME PRN PRN Reason: Insomnia Last Admin: 12/29/23 21:56 Dose: 6 mg Documented By: NATY Mirtazapine (Mirtazapine 15 Mg Tablet) 15 mg PO BEDTIME [facility] Last Admin: 12/29/23 21:56 Dose: 15 mg Documented By: NATY Ondansetron HCl (Ondansetron Hcl 4 Mg/2 Ml Vial) 4 mg IVPUSH Q8H PRN PRN Reason: Nausea and Vomiting Last Admin: 12/12/23 21:24 Dose: 4 mg Documented By: SIMONA Comments: Dry heaving/nausea Paroxetine HCl (Paroxetine Hcl 30 Mg Tablet) 60 mg PO BEDTIME [facility] Last Admin: 12/29/23 21:56 Dose: 60 mg Documented By: NATY Polyethylene Glycol (Polyethylene Glycol 3350 17 Gm Powd.Pack) 17 gm PO DAILY PRN PRN Reason: Constipation Last Admin: 12/14/23 20:13 Dose: 17 gm Documented By: DIMA Quetiapine Fumarate (Quetiapine Fumarate 100 Mg Tablet) 100 mg PO BEDTIME [facility] Last Admin: 12/29/23 21:56 Dose: 100 mg Documented By: NATY Ropinirole HCl (Ropinirole Hcl 1 Mg Tablet) 3 mg PO BEDTIME [facility] Last Admin: 12/29/23 21:55 Dose: 3 mg Documented By: NATY Sodium Bicarbonate (Sodium Bicarbonate 650 Mg Tablet) 650 mg PO BID [facility] Last Admin: 12/30/23 08:11 Dose: 650 mg Documented By: RAJANI Sodium Chloride (0.9 % Sodium Chloride Flush 3 Ml Syringe) [facility] Last Admin: 12/30/23 15:01 Dose: Not Given Documented By: RAJANI Non-Admin Reason: Previously Administered Vitamin D (Cholecalciferol (Vitamin D3) 25 Mcg Tablet) 25 mcg PO DAILY [facility] Last Admin: 12/30/23 08:11 Dose: 25 mcg Documented By: RAJANI Labs 12/30/23 06:38 12/30/23 06:38 Labs: Laboratory Results - last 24 hr 12/30/23 06:38 MCV 93.0 MCH 28.9 MCHC 31.1 RDW 15.3 Plt Count 284 MPV 10.1 Absolute Nucleated RBC 0.000 Nucleated RBC % (auto) 0.0 Anion Gap 12 Estim Creat Clear Calc 48.3 Estimated GFR > 60 Random Glucose 105 Calcium 9.5 Assessment and Plan (1) Hematuria: Status: Acute Assessment and Plan: 73-year-old male with a PMH significant for?prostate cancer s/p prostatectomy and radiation therapy complicated by radiation proctitis, CAD s/p PCI in 2014, carotid artery stenosis s/p bilateral carotid stenting, hx of cerebral hemorrhage, epilepsy, HLD, HTN, restless leg syndrome, and anxiety who presents to the ED for evaluation right lower lump, chills and diagnosed to have severe sepsis, MARKUS acute blood loss anemia and hematuria. Severe sepsis due to acute pyelonephritis, urine culture lactobacilus and E. coli. sepsis resolved completed 14d IV antibiotics. 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 s/p Cystoscopy, clot evacuation, failed attempt at retrograde on 12/12. cbi punch colour urine , urology rec : tranexamic acid IV x1 dose(12/29/23) ,another dose ordered (12/30/23) Acute kidney injury--likely from obstructive uropathy, Cr nl - resolved with Epps, will likely need chronic epps. Metabolic acidosis d/t renal failure, elevated B-hydroxy? starvation, ketosis, resolved. Acute blood loss anemia d/t hematuria -s/p transfusion 2 units of 12/08 and 1 unit on 12/14 with good effect, h/h lower d/t ongoing anemia, Hgb is 9.7 Chronic diarrhea No recurrent diarrhea, had normal bowel movement has been incontinent of urine and stool x several months CT of abdomen and pelvis showed generalized rectal wall thickening surrounding the stool ball, with surrounding fat stranding consistent with proctitis , similar findings noted on prior imaging studies Previously seen by GI they recommended mesalamine by mouth t.i.d. and cholestyramine. But as per patient he was later instructed to stop these medications. 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 CT 12/11:Moderate stool burden. Otherwise the large and small bowel are normal in caliber. Rectal wall thickening and perirectal inflammatory fat stranding. -bowel regimen CAD/history of bilateral carotid stenting aspirin, Plavix. Uro recommends restarting plavix 48 hrs once bleeding stops, but given persistent bleeding more than 2 weeks . urology follow up-added tranexemic iv x1 dose . HTN--continue Norvasc Mood disorder:Continue home meds. Moderate protein calorie malnutrition add supplements DVT Prophylaxis: Mechanical device, d/t active hematuria and anemia needing transfusion Pt will require continued inpatient hospitalization for treatment of hematuria requiring CBI PT is following and doesn't require rehab, ongoing need for hospitlisation :hematuria similar -requiring tranexamic acid IV , moniter h/h ,urology follow up (2) Urinary retention: Status: Acute Quality Stroke Does the patient have a stroke diagnosis?: No VTE Prior VTE?: No VTE Risk Level:: Medical - moderate - high VTE Device Contraindication: N/A - Device Ordered VTE Drug Contraindication: Treatment Not Indicated
[2023-12-30] MEDS: Mirtazapine 15 MG TABLET PO (21:16)
[2023-12-30] MEDS: PARoxetine HCL 30 MG TABLET 60 MG PO (21:16)
[2023-12-30] MEDS: rOPINIRole HCL 1 MG TABLET 3 MG PO (21:16)
[2023-12-30] MEDS: QUEtiapine Fumarate 100 MG TABLET PO (21:17)
[2023-12-31] VITALS (7 sets, daily range): BP systolic 104–142; BP diastolic 54–70; PULSE 79–93; RESP 16–20; TEMP 36.1–37.2; O2SAT 93–97
[2023-12-31] MEDS: 0.9 % Sodium Chloride Flush 3 ML SYRINGE IVFLUSH ×3 (00:30→18:20)
--- NOTE | 2023-12-31 07:46 | PC.NURSE ---
Patient received in bed with CBI in progress. Sesay bag content was peach colored. 2 episodes of catheter obstruction requiring hand irrigation to remove some blood clots. Urine remained clear for the rest of the shift. 1400 ml counted as true urine. No signs of acute distress noted.
[2023-12-31] MEDS: Atorvastatin Calcium 80 MG TABLET PO (07:56)
[2023-12-31] MEDS: Cyanocobalamin (Vitamin B-12) 1,000 MCG TABLET 1000 MCG PO (07:57)
[2023-12-31] MEDS: amLODIPine Besylate 5 MG TABLET PO (07:57)
[2023-12-31] MEDS: Cholecalciferol (Vitamin D3) 25 MCG TABLET PO (07:57)
[2023-12-31] MEDS: Sodium Bicarbonate 650 MG TABLET PO ×2 (07:58→20:50)
--- NOTE | 2023-12-31 10:30 | MHC.CLN ---
F/U PO INTAKE REMAINS 100% DIET RX: REGULAR-APPROPRIATE PT RECEIVING ENURE TID TO PROMOTE WOUND HEALING ENSURE PROVIDES 1050KCALS, 60G PROTEIN WITH 100% ACCEPTANCE MONITOR PO INTAKE AND ENCOURAGE SUPPLEMENT OBTAIN CURRENT WEIGHT
--- NOTE | 2023-12-31 13:27 | MHC.CM.PN ---
EMR reviewed and per MD rounds, pt is not medically cleared for discharge due to management of hematuria, pending urology.
[2023-12-31] MEDS: Tranexamic Acid 1,000 MG in 0.9 % Sodium Chloride 50 ML 360 MG IV (13:41)
--- NOTE | 2023-12-31 17:40 | HO.PM.IMPN ---
Subjective Subjective Date of Service: 12/31/23 Interval History: Intermittent hematuria Review of Systems Denies any chest pain or shortness of breath or new symptoms Physical Exam Vital Signs: Vital Signs: Last Vital Signs Temp 97.1 F 12/31/23 15:57 Pulse 93 12/31/23 15:57 Resp 16 12/31/23 15:57 BP 142/70 H 12/31/23 15:57 Pulse Ox 94 12/31/23 15:57 O2 Del Method Room Air 12/31/23 15:57 O2 Flow Rate 4 12/13/23 16:19 BMI result Body Mass Index 16.8 CVS :regular rate rhythm, Res: lungs clear to auscultation, no respiratory distress, no wheezing or rales. Gi: abdomen soft, non tender, bowel sounds audible, no guarding , no rigidity. Extremities no edema. Neuro non focal , speech clear. Skin no rash Psych appropriate affect CBI -Punch colour urine Objective Data Active Medications Acetaminophen (Acetaminophen 325 Mg Tablet) 650 mg PO Q6H PRN PRN Reason: Pain, Mild (Pain Scale 1-3), fever or headache Last Admin: 12/12/23 02:18 Dose: 650 mg Documented By: TRACY Amlodipine Besylate (Amlodipine Besylate 5 Mg Tablet) 5 mg PO DAILY [facility]; Protocol Last Admin: 12/31/23 07:57 Dose: 5 mg Documented By: FREDDY Atorvastatin Calcium (Atorvastatin Calcium 80 Mg Tablet) 80 mg PO DAILY [facility] Last Admin: 12/31/23 07:56 Dose: 80 mg Documented By: FREDDY Benzonatate (Benzonatate 100 Mg Capsule) 100 mg PO TID PRN PRN Reason: Cough Calcium Carbonate (Calcium Carbonate 750 Mg Tab.Chew) 750 mg PO Q4H PRN PRN Reason: Heartburn Cyanocobalamin (Cyanocobalamin (Vitamin B-12) 1,000 Mcg Tablet) 1,000 mcg PO DAILY [facility] Last Admin: 12/31/23 07:57 Dose: 1,000 mcg Documented By: FREDDY Loperamide HCl (Loperamide Hcl 2 Mg Capsule) 2 mg PO Q6H PRN PRN Reason: Diarrhea Last Admin: 12/24/23 06:01 Dose: 2 mg Documented By: TING Magnesium Hydroxide (Milk Of Magnesia 30 Ml Oral.Susp) 30 ml PO DAILY PRN PRN Reason: Constipation Last Admin: 12/29/23 16:22 Dose: 30 ml Documented By: RAJANI Melatonin (Melatonin 3 Mg Tablet) 6 mg PO BEDTIME PRN PRN Reason: Insomnia Last Admin: 12/29/23 21:56 Dose: 6 mg Documented By: NATY Mirtazapine (Mirtazapine 15 Mg Tablet) 15 mg PO BEDTIME [facility] Last Admin: 12/30/23 21:16 Dose: 15 mg Documented By: ROBBIE Ondansetron HCl (Ondansetron Hcl 4 Mg/2 Ml Vial) 4 mg IVPUSH Q8H PRN PRN Reason: Nausea and Vomiting Last Admin: 12/12/23 21:24 Dose: 4 mg Documented By: SIMONA Comments: Dry heaving/nausea Paroxetine HCl (Paroxetine Hcl 30 Mg Tablet) 60 mg PO BEDTIME [facility] Last Admin: 12/30/23 21:16 Dose: 60 mg Documented By: ROBBIE Polyethylene Glycol (Polyethylene Glycol 3350 17 Gm Powd.Pack) 17 gm PO DAILY PRN PRN Reason: Constipation Last Admin: 12/14/23 20:13 Dose: 17 gm Documented By: DIMA Quetiapine Fumarate (Quetiapine Fumarate 100 Mg Tablet) 100 mg PO BEDTIME [facility] Last Admin: 12/30/23 21:17 Dose: 100 mg Documented By: ROBBIE Ropinirole HCl (Ropinirole Hcl 1 Mg Tablet) 3 mg PO BEDTIME [facility] Last Admin: 12/30/23 21:16 Dose: 3 mg Documented By: ROBBIE Sodium Bicarbonate (Sodium Bicarbonate 650 Mg Tablet) 650 mg PO BID [facility] Last Admin: 12/31/23 07:58 Dose: 650 mg Documented By: FREDDY Sodium Chloride (0.9 % Sodium Chloride Flush 3 Ml Syringe) [facility] Last Admin: 12/31/23 07:57 Dose: 3 ml Documented By: FREDDY Vitamin D (Cholecalciferol (Vitamin D3) 25 Mcg Tablet) 25 mcg PO DAILY [facility] Last Admin: 12/31/23 07:57 Dose: 25 mcg Documented By: FREDDY Labs 12/30/23 06:38 12/30/23 06:38 Assessment and Plan (1) Hematuria: Status: Acute Assessment and Plan: 73-year-old male with a PMH significant for?prostate cancer s/p prostatectomy and radiation therapy complicated by radiation proctitis, CAD s/p PCI in 2014, carotid artery stenosis s/p bilateral carotid stenting, hx of cerebral hemorrhage, epilepsy, HLD, HTN, restless leg syndrome, and anxiety who presents to the ED for evaluation right lower lump, chills and diagnosed to have severe sepsis, MARKUS acute blood loss anemia and hematuria. Severe sepsis due to acute pyelonephritis, urine culture lactobacilus and E. coli. sepsis resolved completed 14d IV antibiotics. 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 s/p Cystoscopy, clot evacuation, failed attempt at retrograde on 12/12. cbi punch colour urine , urology rec : tranexamic acid IV x1 dose(12/29/23) ,another dose ordered (12/30/23). Acute kidney injury--likely from obstructive uropathy, Cr nl - resolved with Epps, will likely need chronic epps. Metabolic acidosis d/t renal failure, elevated B-hydroxy? starvation, ketosis, resolved. Acute blood loss anemia d/t hematuria -s/p transfusion 2 units of 12/08 and 1 unit on 12/14 with good effect, h/h lower d/t ongoing anemia, Hgb is 9.7 Chronic diarrhea No recurrent diarrhea, had normal bowel movement has been incontinent of urine and stool x several months CT of abdomen and pelvis showed generalized rectal wall thickening surrounding the stool ball, with surrounding fat stranding consistent with proctitis , similar findings noted on prior imaging studies Previously seen by GI they recommended mesalamine by mouth t.i.d. and cholestyramine. But as per patient he was later instructed to stop these medications. 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 CT 12/11:Moderate stool burden. Otherwise the large and small bowel are normal in caliber. Rectal wall thickening and perirectal inflammatory fat stranding. -bowel regimen CAD/history of bilateral carotid stenting aspirin, Plavix. Uro recommends restarting plavix 48 hrs once bleeding stops, but given persistent bleeding more than 2 weeks . urology follow up-added tranexemic iv x1 dose . HTN--continue Norvasc Mood disorder:Continue home meds. Moderate protein calorie malnutrition add supplements DVT Prophylaxis: Mechanical device, d/t active hematuria and anemia needing transfusion Pt will require continued inpatient hospitalization for treatment of hematuria requiring CBI PT is following and doesn't require rehab, ongoing need for hospitlisation :hematuria similar -requiring tranexamic acid IV , moniter h/h ,urology follow up called today . Quality Stroke Does the patient have a stroke diagnosis?: No VTE Prior VTE?: No VTE Risk Level:: Medical - moderate - high VTE Device Contraindication: N/A - Device Ordered VTE Drug Contraindication: Treatment Not Indicated
--- NOTE | 2023-12-31 18:56 | PC.NURSE ---
PTs epps was removed 12/30 at 1845 per MD order, DR Evangelista. Epps was intact after removal
[2023-12-31] MEDS: Melatonin 3 MG TABLET 6 MG PO (20:49)
[2023-12-31] MEDS: PARoxetine HCL 30 MG TABLET 60 MG PO (20:49)
[2023-12-31] MEDS: rOPINIRole HCL 1 MG TABLET 3 MG PO (20:50)
[2023-12-31] MEDS: Mirtazapine 15 MG TABLET PO (20:50)
[2023-12-31] MEDS: QUEtiapine Fumarate 100 MG TABLET PO (20:50)
[2024-01-01] VITALS (8 sets, daily range): BP systolic 116–139; BP diastolic 58–66; PULSE 86–102; RESP 18–20; TEMP 36.3–38.6; O2SAT 92–95; BMI 18.4
[2024-01-01] MEDS: 0.9 % Sodium Chloride Flush 3 ML SYRINGE IVFLUSH ×3 (00:30→15:57)
--- NOTE | 2024-01-01 07:35 | PC.NURSE ---
Assumed care of patient since 1844 on 12/31/23. Patient remains AAOX4. Patient found to be incontinent around midnight with urine all over the pad. [place] catheter started. 250 ml pink colored -urine emptied at 0330. Post void residual=0 ml. Patient had 2 liquid stools overnight. VSS. NSR on cardiac monitoring. no signs of distress noted.
[2024-01-01] MEDS: Sodium Bicarbonate 650 MG TABLET PO ×2 (07:56→20:49)
[2024-01-01] MEDS: amLODIPine Besylate 5 MG TABLET PO (07:56)
[2024-01-01] MEDS: Cholecalciferol (Vitamin D3) 25 MCG TABLET PO (07:56)
[2024-01-01] MEDS: Atorvastatin Calcium 80 MG TABLET PO (07:56)
[2024-01-01] MEDS: Acetaminophen 325 MG TABLET 650 MG PO ×2 (07:56→20:44)
[2024-01-01] MEDS: Cyanocobalamin (Vitamin B-12) 1,000 MCG TABLET 1000 MCG PO (07:56)
--- NOTE | 2024-01-01 14:18 | P.PNIM_ITS ---
Subjective Subjective Date of Service: 01/01/24 Interval History: hematuria Review of Systems urine getting mostly clear denies any abd pain Physical Exam 2 Vital Signs: Vital Signs: Last Vital Signs Temp 98.0 F 01/01/24 11:01 Pulse 86 01/01/24 11:01 Resp 18 01/01/24 11:01 BP 116/58 L 01/01/24 11:01 Pulse Ox 95 01/01/24 11:01 O2 Del Method Room Air 01/01/24 11:01 O2 Flow Rate 4 12/13/23 16:19 BMI result Body Mass Index 18.4 CVS :regular rate rhythm, Res: lungs clear to auscultation, no respiratory distress, no wheezing or rales. Gi: abdomen soft, non tender, bowel sounds audible, no guarding , no rigidity. Extremities no edema. Neuro non focal , speech clear. Skin no rash Psych appropriate affect CBI -Punch colour urine Objective Data Active Medications Acetaminophen (Acetaminophen 325 Mg Tablet) 650 mg PO Q6H PRN PRN Reason: Pain, Mild (Pain Scale 1-3), fever or headache Last Admin: 01/01/24 07:56 Dose: 650 mg Documented By: SARA Amlodipine Besylate (Amlodipine Besylate 5 Mg Tablet) 5 mg PO DAILY [facility]; Protocol Last Admin: 01/01/24 07:56 Dose: 5 mg Documented By: SARA Atorvastatin Calcium (Atorvastatin Calcium 80 Mg Tablet) 80 mg PO DAILY [facility] Last Admin: 01/01/24 07:56 Dose: 80 mg Documented By: SARA Benzonatate (Benzonatate 100 Mg Capsule) 100 mg PO TID PRN PRN Reason: Cough Calcium Carbonate (Calcium Carbonate 750 Mg Tab.Chew) 750 mg PO Q4H PRN PRN Reason: Heartburn Cyanocobalamin (Cyanocobalamin (Vitamin B-12) 1,000 Mcg Tablet) 1,000 mcg PO DAILY [facility] Last Admin: 01/01/24 07:56 Dose: 1,000 mcg Documented By: SARA Loperamide HCl (Loperamide Hcl 2 Mg Capsule) 2 mg PO Q6H PRN PRN Reason: Diarrhea Last Admin: 12/24/23 06:01 Dose: 2 mg Documented By: TING Magnesium Hydroxide (Milk Of Magnesia 30 Ml Oral.Susp) 30 ml PO DAILY PRN PRN Reason: Constipation Last Admin: 12/29/23 16:22 Dose: 30 ml Documented By: RAJANI Melatonin (Melatonin 3 Mg Tablet) 6 mg PO BEDTIME PRN PRN Reason: Insomnia Last Admin: 12/31/23 20:49 Dose: 6 mg Documented By: ROBBIE Mirtazapine (Mirtazapine 15 Mg Tablet) 15 mg PO BEDTIME [facility] Last Admin: 12/31/23 20:50 Dose: 15 mg Documented By: ROBBIE Ondansetron HCl (Ondansetron Hcl 4 Mg/2 Ml Vial) 4 mg IVPUSH Q8H PRN PRN Reason: Nausea and Vomiting Last Admin: 12/12/23 21:24 Dose: 4 mg Documented By: SIMONA Comments: Dry heaving/nausea Paroxetine HCl (Paroxetine Hcl 30 Mg Tablet) 60 mg PO BEDTIME [facility] Last Admin: 12/31/23 20:49 Dose: 60 mg Documented By: ROBBIE Polyethylene Glycol (Polyethylene Glycol 3350 17 Gm Powd.Pack) 17 gm PO DAILY PRN PRN Reason: Constipation Last Admin: 12/14/23 20:13 Dose: 17 gm Documented By: DIMA Quetiapine Fumarate (Quetiapine Fumarate 100 Mg Tablet) 100 mg PO BEDTIME [facility] Last Admin: 12/31/23 20:50 Dose: 100 mg Documented By: ROBBIE Ropinirole HCl (Ropinirole Hcl 1 Mg Tablet) 3 mg PO BEDTIME [facility] Last Admin: 12/31/23 20:50 Dose: 3 mg Documented By: ROBBIE Sodium Bicarbonate (Sodium Bicarbonate 650 Mg Tablet) 650 mg PO BID [facility] Last Admin: 01/01/24 07:56 Dose: 650 mg Documented By: SARA Sodium Chloride (0.9 % Sodium Chloride Flush 3 Ml Syringe) 3 ml IVFLUSH QSHIFT [facility] Last Admin: 01/01/24 07:56 Dose: 3 ml Documented By: SARA Vitamin D (Cholecalciferol (Vitamin D3) 25 Mcg Tablet) 25 mcg PO DAILY [facility] Last Admin: 01/01/24 07:56 Dose: 25 mcg Documented By: SARA Labs 12/30/23 06:38 12/30/23 06:38 Assessment and Plan (1) Hematuria: Status: Acute Assessment and Plan: 73-year-old male with a PMH significant for?prostate cancer s/p prostatectomy and radiation therapy complicated by radiation proctitis, CAD s/p PCI in 2014, carotid artery stenosis s/p bilateral carotid stenting, hx of cerebral hemorrhage, epilepsy, HLD, HTN, restless leg syndrome, and anxiety who presents to the ED for evaluation right lower lump, chills and diagnosed to have severe sepsis, MARKUS acute blood loss anemia and hematuria. Severe sepsis due to acute pyelonephritis, urine culture lactobacilus and E. coli. sepsis resolved completed 14d IV antibiotics. 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 s/p Cystoscopy, clot evacuation, failed attempt at retrograde on 12/12. cbi punch colour urine , urology rec : tranexamic acid IV x1 dose(12/29/23) ,another dose ordered (12/30/23). off cbi now -placed [place] catheter per urology Acute kidney injury--likely from obstructive uropathy, Cr nl - resolved with Epps, will likely need chronic epps. Metabolic acidosis d/t renal failure, elevated B-hydroxy? starvation, ketosis, resolved. Acute blood loss anemia d/t hematuria -s/p transfusion 2 units of 12/08 and 1 unit on 12/14 with good effect, h/h lower d/t ongoing anemia, Hgb is 9.7 Chronic diarrhea No recurrent diarrhea, had normal bowel movement has been incontinent of urine and stool x several months CT of abdomen and pelvis showed generalized rectal wall thickening surrounding the stool ball, with surrounding fat stranding consistent with proctitis , similar findings noted on prior imaging studies Previously seen by GI they recommended mesalamine by mouth t.i.d. and cholestyramine. But as per patient he was later instructed to stop these medications. 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 CT 12/11:Moderate stool burden. Otherwise the large and small bowel are normal in caliber. Rectal wall thickening and perirectal inflammatory fat stranding. -bowel regimen CAD/history of bilateral carotid stenting aspirin, Plavix. Uro recommends restarting plavix 48 hrs once bleeding stops, but given persistent bleeding more than 2 weeks . urology follow up-added tranexemic iv x1 dose . HTN--continue Norvasc Mood disorder:Continue home meds. Moderate protein calorie malnutrition add supplements DVT Prophylaxis: Mechanical device, d/t active hematuria and anemia needing transfusion Pt will require continued inpatient hospitalization for treatment of hematuria requiring CBI PT is following and doesn't require rehab, ongoing need for hospitlisation :hematuria improving -will moniter for 1 day and with activity -if does improves ,plan dispo. Quality Stroke Does the patient have a stroke diagnosis?: No VTE Prior VTE?: No VTE Risk Level:: Medical - moderate - high VTE Device Contraindication: N/A - Device Ordered VTE Drug Contraindication: Treatment Not Indicated
[2024-01-01] MEDS: Loperamide HCl 2 MG CAPSULE PO (15:57)
[2024-01-01] MEDS: Melatonin 3 MG TABLET 6 MG PO (20:45)
[2024-01-01] MEDS: Mirtazapine 15 MG TABLET PO (20:45)
[2024-01-01] MEDS: rOPINIRole HCL 1 MG TABLET 3 MG PO (20:45)
[2024-01-01] MEDS: PARoxetine HCL 30 MG TABLET 60 MG PO (20:45)
[2024-01-01] MEDS: QUEtiapine Fumarate 100 MG TABLET PO (20:46)
--- NOTE | 2024-01-01 22:30 | PM.EVENT ---
Event Note Date of Service: 01/01/24 Event Note: fever of 101, tachycardia--meet SIRS, BP ok blood culture, ua, lactic,cxr. Hold Abx for now Time Spent With Patient Time: Total time managing care of this patient today ____ minutes.
[2024-01-01 23:28] LABS: Hematocrit 27.8 % (42.0-52.0); Hemoglobin 9.2 g/dl (14.0-18.0); Mean Corpuscular HGB Conc 33.1 g/dl (31.0-36.0); Mean Corpuscular Hemoglobin 29.2 pg (27.0-33.0); Mean Corpuscular Volume 88.3 fL (80.0-98.0); Mean Platelet Volume 9.3 fL (9.4-12.4); Platelet Count 229 X10*3/uL (160-400); Red Blood Count 3.15 X10*6/uL (4.60-5.80); Red Cell Distribution Width 14.9 % (11.0-16.0); White Blood Count 6.6 X10*3/uL (4.8-10.8)
[2024-01-01 23:40] LABS: Lactic Acid 0.7 mmol/L (0.5-2.0)
[2024-01-02] VITALS (7 sets, daily range): BP systolic 107–138; BP diastolic 56–68; PULSE 90–100; RESP 16–19; TEMP 36.2–37.9; O2SAT 94–96; BMI 18.1
[2024-01-02] MEDS: 0.9 % Sodium Chloride Flush 3 ML SYRINGE IVFLUSH ×3 (00:08→16:12)
--- NOTE | 2024-01-02 05:53 | PC.NURSE ---
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 Dr Mervin Jama made aware. Tylenol 650 mg po given. BCX completed . UA specimen sent to laboratory. CXR ordered. Most recent temp=98.6 around 22:40 and 97.2 at 0359. Patient remains NSR on site monitor. We'll continue to monitor.
[2024-01-02 08:35] LABS: Appearance Urine Cloudy; Color Urine Orange; Glucose Urine UA Negative (Negative); PH 6.5 (5.0-9.0); Specific Gravity - Urine 1.015 (1.005-1.025); Urine Blood Large (3+) (Negative); Urine Protein 300 (3+) mg/dL (Neg-Trace)
[2024-01-02 08:36] LABS: Urine Ketones Negative (Negative)
[2024-01-02 08:37] LABS: Leukocyte Esterase Urine Large (3+) (Negative); Nitrite Urine Positive (Negative); UMIC TRIGGER UACC YES
[2024-01-02 08:38] LABS: RBC Urine >20 /HPF (0-2); Squamous Epithelial Cell Urine 0-2 /HPF (0-2); WBC Urine >50 /HPF (0-5)
[2024-01-02 08:39] LABS: Bacteria Urine 4+ (None Seen); Hyaline Casts Urine 0-2 /LPF (0-2); UACC Culture Trigger NO
--- NOTE | 2024-01-02 09:18 | P.PNIM_ITS ---
Subjective Subjective Date of Service: 01/02/24 Interval History: sirs Review of Systems hematuria resolved no fevers today denies any other urinary c/o Physical Exam 2 Vital Signs: Vital Signs: Last Vital Signs Temp 98.4 F 01/02/24 07:12 Pulse 92 01/02/24 07:12 Resp 18 01/02/24 07:12 BP 112/60 01/02/24 07:12 Pulse Ox 95 01/02/24 07:12 O2 Del Method Room Air 01/02/24 07:12 O2 Flow Rate 4 12/13/23 16:19 BMI result Body Mass Index 18.1 CVS :regular rate rhythm, Res: lungs clear to auscultation, no respiratory distress, no wheezing or rales. Gi: abdomen soft, non tender, bowel sounds audible, no guarding , no rigidity. Extremities no edema. Neuro non focal , speech clear. Skin no rash Psych appropriate affect Objective Data Active Medications Acetaminophen (Acetaminophen 325 Mg Tablet) 650 mg PO Q6H PRN PRN Reason: Pain, Mild (Pain Scale 1-3), fever or headache Last Admin: 01/01/24 20:44 Dose: 650 mg Documented By: ROBBIE Amlodipine Besylate (Amlodipine Besylate 5 Mg Tablet) 5 mg PO DAILY [facility]; Protocol Last Admin: 01/01/24 07:56 Dose: 5 mg Documented By: SARA Atorvastatin Calcium (Atorvastatin Calcium 80 Mg Tablet) 80 mg PO DAILY [facility] Last Admin: 01/01/24 07:56 Dose: 80 mg Documented By: SARA Benzonatate (Benzonatate 100 Mg Capsule) 100 mg PO TID PRN PRN Reason: Cough Calcium Carbonate (Calcium Carbonate 750 Mg Tab.Chew) 750 mg PO Q4H PRN PRN Reason: Heartburn Cyanocobalamin (Cyanocobalamin (Vitamin B-12) 1,000 Mcg Tablet) 1,000 mcg PO DAILY [facility] Last Admin: 01/01/24 07:56 Dose: 1,000 mcg Documented By: SARA Loperamide HCl (Loperamide Hcl 2 Mg Capsule) 2 mg PO Q6H PRN PRN Reason: Diarrhea Last Admin: 01/01/24 15:57 Dose: 2 mg Documented By: SARA Magnesium Hydroxide (Milk Of Magnesia 30 Ml Oral.Susp) 30 ml PO DAILY PRN PRN Reason: Constipation Last Admin: 12/29/23 16:22 Dose: 30 ml Documented By: RAJANI Melatonin (Melatonin 3 Mg Tablet) 6 mg PO BEDTIME PRN PRN Reason: Insomnia Last Admin: 01/01/24 20:45 Dose: 6 mg Documented By: ROBBIE Mirtazapine (Mirtazapine 15 Mg Tablet) 15 mg PO BEDTIME [facility] Last Admin: 01/01/24 20:45 Dose: 15 mg Documented By: ROBBIE Ondansetron HCl (Ondansetron Hcl 4 Mg/2 Ml Vial) 4 mg IVPUSH Q8H PRN PRN Reason: Nausea and Vomiting Last Admin: 12/12/23 21:24 Dose: 4 mg Documented By: SIMONA Comments: Dry heaving/nausea Paroxetine HCl (Paroxetine Hcl 30 Mg Tablet) 60 mg PO BEDTIME [facility] Last Admin: 01/01/24 20:45 Dose: 60 mg Documented By: ROBBIE Polyethylene Glycol (Polyethylene Glycol 3350 17 Gm Powd.Pack) 17 gm PO DAILY PRN PRN Reason: Constipation Last Admin: 12/14/23 20:13 Dose: 17 gm Documented By: DIMA Quetiapine Fumarate (Quetiapine Fumarate 100 Mg Tablet) 100 mg PO BEDTIME [facility] Last Admin: 01/01/24 20:46 Dose: 100 mg Documented By: ROBBIE Ropinirole HCl (Ropinirole Hcl 1 Mg Tablet) 3 mg PO BEDTIME [facility] Last Admin: 01/01/24 20:45 Dose: 3 mg Documented By: ROBBIE Sodium Bicarbonate (Sodium Bicarbonate 650 Mg Tablet) 650 mg PO BID [facility] Last Admin: 01/01/24 20:49 Dose: 650 mg Documented By: ROBBIE Sodium Chloride (0.9 % Sodium Chloride Flush 3 Ml Syringe) 3 ml IVFLUSH QSHIFT [facility] Last Admin: 01/02/24 00:08 Dose: 3 ml Documented By: ROBBIE Vitamin D (Cholecalciferol (Vitamin D3) 25 Mcg Tablet) 25 mcg PO DAILY [facility] Last Admin: 01/01/24 07:56 Dose: 25 mcg Documented By: SARA Labs 01/01/24 23:13 12/30/23 06:38 Labs: Laboratory Results - last 24 hr 09/07/24 09/07/24 09/08/24 05:22 23:13 05:22 MCV 88.3 MCH 29.2 MCHC 33.1 RDW 14.9 Plt Count 229 MPV 9.3 L Absolute Nucleated RBC 0.000 Nucleated RBC % (auto) 0.0 Lactic Acid 0.7 Urine Color Cancelled [place] A Urine Appearance Cancelled Cloudy Urine pH Cancelled 6.5 Ur Specific Grace Cancelled 1.015 Urine Protein Cancelled 300 (3+) H Urine Glucose (UA) Cancelled Negative Urine Ketones Cancelled Negative Urine Blood Cancelled Large (3+) H Urine Nitrite Cancelled Positive H Ur Leukocyte Esterase Cancelled Large (3+) H Urine RBC Cancelled >20 H Urine WBC Cancelled >50 H Urine WBC Clumps Cancelled Ur Squamous Epith Cells Cancelled 0-2 Ur Transition Epith Cell Cancelled Ur Renal Epithelial Cell Cancelled Calcium Oxalate Crystal Cancelled Leucine Crystals Cancelled Cystine Crystals Cancelled Tyrosine Crystals Cancelled Other Crystals Cancelled Urine Bacteria Cancelled 4+ Urine Parasites Cancelled Bilirubin Casts Cancelled Epithelial Casts Cancelled Fatty Casts Cancelled Hyaline Casts Cancelled 0-2 Granular Casts Cancelled Waxy Casts Cancelled Broad Casts Cancelled RBC Casts Cancelled WBC Casts Cancelled Other Casts Cancelled Urine Trichomonas Cancelled Urine Yeast Cancelled Assessment and Plan (1) Hematuria: Status: Acute Assessment and Plan: 73-year-old male with a PMH significant for?prostate cancer s/p prostatectomy and radiation therapy complicated by radiation proctitis, CAD s/p PCI in 2014, carotid artery stenosis s/p bilateral carotid stenting, hx of cerebral hemorrhage, epilepsy, HLD, HTN, restless leg syndrome, and anxiety who presents to the ED for evaluation right lower lump, chills and diagnosed to have severe sepsis, MARKUS acute blood loss anemia and hematuria. new event: sirs last night denies any dysuria no sob or cough ua seems similar cxr neg blood cultures pending lactic acid normal respiratory viral panel no fevers afterwards cotninue to moniter Severe sepsis due to acute pyelonephritis, urine culture lactobacilus and E. coli. sepsis resolved completed 14d IV antibiotics. 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 s/p Cystoscopy, clot evacuation, failed attempt at retrograde on 12/12. cbi punch colour urine , urology rec : tranexamic acid IV x1 dose(12/29/23) ,another dose ordered (12/30/23). off cbi now -placed [place] catheter per urology Acute kidney injury--likely from obstructive uropathy, Cr nl - resolved with Epps, will likely need chronic epps. Metabolic acidosis d/t renal failure, elevated B-hydroxy? starvation, ketosis, resolved. Acute blood loss anemia d/t hematuria -s/p transfusion 2 units of 12/08 and 1 unit on 12/14 with good effect, h/h lower d/t ongoing anemia, Hgb is 9.7 Chronic diarrhea No recurrent diarrhea, had normal bowel movement has been incontinent of urine and stool x several months CT of abdomen and pelvis showed generalized rectal wall thickening surrounding the stool ball, with surrounding fat stranding consistent with proctitis , similar findings noted on prior imaging studies Previously seen by GI they recommended mesalamine by mouth t.i.d. and cholestyramine. But as per patient he was later instructed to stop these medications. 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 CT 12/11:Moderate stool burden. Otherwise the large and small bowel are normal in caliber. Rectal wall thickening and perirectal inflammatory fat stranding. -bowel regimen CAD/history of bilateral carotid stenting aspirin, Plavix. Uro recommends restarting plavix 48 hrs once bleeding stops, but given persistent bleeding more than 2 weeks . urology follow up-added tranexemic iv x1 dose . HTN--continue Norvasc Mood disorder:Continue home meds. Moderate protein calorie malnutrition add supplements DVT Prophylaxis: Mechanical device, d/t active hematuria and anemia needing transfusion Pt will require continued inpatient hospitalization for treatment of hematuria requiring CBI PT is following and doesn't require rehab, ongoing need for hospitlisation :hematuria improving -will moniter for 1 day and with activity -if does improves ,plan dispo. Quality Stroke Does the patient have a stroke diagnosis?: No VTE Prior VTE?: No VTE Risk Level:: Medical - moderate - high VTE Device Contraindication: N/A - Device Ordered VTE Drug Contraindication: Treatment Not Indicated
[2024-01-02] MEDS: amLODIPine Besylate 5 MG TABLET PO (09:37)
[2024-01-02] MEDS: Cholecalciferol (Vitamin D3) 25 MCG TABLET PO (09:37)
[2024-01-02] MEDS: Atorvastatin Calcium 80 MG TABLET PO (09:37)
[2024-01-02] MEDS: Cyanocobalamin (Vitamin B-12) 1,000 MCG TABLET 1000 MCG PO (09:37)
[2024-01-02] MEDS: Sodium Bicarbonate 650 MG TABLET PO ×2 (09:37→20:01)
[2024-01-02 10:20] LABS: Adenovirus PCR Not Detected (Not Detect.); Bordetella parapertussis PCR Not Detected (Not Detect.); Bordetella pertussis PCR Not Detected (Not Detect.); Chlamydia pneumoniae PCR Not Detected (Not Detect.); Coronavirus 229E PCR Not Detected (Not Detect.); Coronavirus HKU1 PCR Not Detected (Not Detect.); Coronavirus NL63 PCR Not Detected (Not Detect.); Coronavirus OC43 PCR Not Detected (Not Detect.); Human metapneumovirus PCR Not Detected (Not Detect.); Influenza A PCR Not Detected (Not Detect.); Influenza B PCR Not Detected (Not Detect.); Mycoplasma pneumoniae PCR Not Detected (Not Detect.); Parainfluenza 1 PCR Not Detected (Not Detect.); Parainfluenza 2 PCR Not Detected (Not Detect.); Parainfluenza 3 PCR Not Detected (Not Detect.); Parainfluenza 4 PCR Not Detected (Not Detect.); RSV PCR Not Detected (Not Detect.); Rhino/Enterovirus PCR Not Detected (Not Detect.)
[2024-01-02 10:43] LABS: SARS-CoV-2 PCR Not Detected (Not Detect.)
[2024-01-02] MEDS: Mirtazapine 15 MG TABLET PO (20:00)
[2024-01-02] MEDS: Melatonin 3 MG TABLET 6 MG PO (20:00)
[2024-01-02] MEDS: rOPINIRole HCL 1 MG TABLET 3 MG PO (20:00)
[2024-01-02] MEDS: QUEtiapine Fumarate 100 MG TABLET PO (20:01)
[2024-01-02] MEDS: PARoxetine HCL 30 MG TABLET 60 MG PO (20:01)
[2024-01-03] VITALS (7 sets, daily range): BP systolic 110–134; BP diastolic 59–63; PULSE 87–94; RESP 14–20; TEMP 36.6–37.6; O2SAT 93–97
[2024-01-03] MEDS: Sodium Bicarbonate 650 MG TABLET PO ×2 (08:48→20:47)
[2024-01-03] MEDS: Cyanocobalamin (Vitamin B-12) 1,000 MCG TABLET 1000 MCG PO (08:48)
[2024-01-03] MEDS: Atorvastatin Calcium 80 MG TABLET PO (08:48)
[2024-01-03] MEDS: Cholecalciferol (Vitamin D3) 25 MCG TABLET PO (08:48)
[2024-01-03] MEDS: amLODIPine Besylate 5 MG TABLET PO (08:48)
[2024-01-03] MEDS: 0.9 % Sodium Chloride Flush 3 ML SYRINGE IVFLUSH ×3 (08:52→22:24)
--- NOTE | 2024-01-03 10:26 | MHC.CLN ---
F/U PO INTAKE REMAINS 75-100% NOTED WT TRENDING UP SINCE ADMISSION; BMI NOW 18.1 FROM 16.8 DIET RX: REGULAR-APPROPRIATE PT RECEIVING ENURE TID TO PROMOTE WOUND HEALING ENSURE PROVIDES 1050KCALS, 60G PROTEIN WITH 100% ACCEPTANCE CONTINUE TO MONITOR PO INTAKE AND ENCOURAGE SUPPLEMENT
[2024-01-03] MEDS: Loperamide HCl 2 MG CAPSULE PO ×3 (11:15→20:47)
--- NOTE | 2024-01-03 11:18 | MHC.CM.PN ---
Per ROUNDS discussion, Patient is not yet medically cleared for dc (spiking Fevers); home with new VNA is the goal and CM will continue to follow.
--- NOTE | 2024-01-03 12:45 | P.PNIM_ITS ---
Subjective Subjective Date of Service: 01/03/24 Interval History: hematuria Review of Systems seems gross hematuria improved. more clear urine today no fevers no other c/o. Physical Exam 2 Vital Signs: Vital Signs: Last Vital Signs Temp 98.5 F 01/03/24 11:36 Pulse 87 01/03/24 11:36 Resp 14 01/03/24 11:36 BP 110/59 L 01/03/24 11:36 Pulse Ox 96 01/03/24 11:36 O2 Del Method Room Air 01/03/24 11:36 O2 Flow Rate 4 12/13/23 16:19 BMI result Body Mass Index 18.1 CVS :regular rate rhythm, Res: lungs clear to auscultation, no respiratory distress, no wheezing or rales. Gi: abdomen soft, non tender, bowel sounds audible, no guarding , no rigidity. Extremities no edema. Neuro non focal , speech clear. Skin no rash Psych appropriate affect has [place] cath-more clear,yellowish colour urine Objective Data Active Medications Acetaminophen (Acetaminophen 325 Mg Tablet) 650 mg PO Q6H PRN PRN Reason: Pain, Mild (Pain Scale 1-3), fever or headache Last Admin: 01/01/24 20:44 Dose: 650 mg Documented By: ROBBIE Amlodipine Besylate (Amlodipine Besylate 5 Mg Tablet) 5 mg PO DAILY [facility]; Protocol Last Admin: 01/03/24 08:48 Dose: 5 mg Documented By: MARC Aspirin (Aspirin 81 Mg Tab.Chew) 81 mg PO DAILY [facility] Atorvastatin Calcium (Atorvastatin Calcium 80 Mg Tablet) 80 mg PO DAILY [facility] Last Admin: 01/03/24 08:48 Dose: 80 mg Documented By: MARC Benzonatate (Benzonatate 100 Mg Capsule) 100 mg PO TID PRN PRN Reason: Cough Calcium Carbonate (Calcium Carbonate 750 Mg Tab.Chew) 750 mg PO Q4H PRN PRN Reason: Heartburn Cyanocobalamin (Cyanocobalamin (Vitamin B-12) 1,000 Mcg Tablet) 1,000 mcg PO DAILY [facility] Last Admin: 01/03/24 08:48 Dose: 1,000 mcg Documented By: MARC Loperamide HCl (Loperamide Hcl 2 Mg Capsule) 2 mg PO Q6H PRN PRN Reason: Diarrhea Last Admin: 01/03/24 11:15 Dose: 2 mg Documented By: MARC Magnesium Hydroxide (Milk Of Magnesia 30 Ml Oral.Susp) 30 ml PO DAILY PRN PRN Reason: Constipation Last Admin: 12/29/23 16:22 Dose: 30 ml Documented By: RAJANI Melatonin (Melatonin 3 Mg Tablet) 6 mg PO BEDTIME PRN PRN Reason: Insomnia Last Admin: 01/02/24 20:00 Dose: 6 mg Documented By: ARIAN Mirtazapine (Mirtazapine 15 Mg Tablet) 15 mg PO BEDTIME HERMINIO Last Admin: 01/02/24 20:00 Dose: 15 mg Documented By: ARIAN Ondansetron HCl (Ondansetron Hcl 4 Mg/2 Ml Vial) 4 mg IVPUSH Q8H PRN PRN Reason: Nausea and Vomiting Last Admin: 12/12/23 21:24 Dose: 4 mg Documented By: SIMONA Comments: Dry heaving/nausea Paroxetine HCl (Paroxetine Hcl 30 Mg Tablet) 60 mg PO BEDTIME [facility] Last Admin: 01/02/24 20:01 Dose: 60 mg Documented By: ARIAN Polyethylene Glycol (Polyethylene Glycol 3350 17 Gm Powd.Pack) 17 gm PO DAILY PRN PRN Reason: Constipation Last Admin: 12/14/23 20:13 Dose: 17 gm Documented By: DIMA Quetiapine Fumarate (Quetiapine Fumarate 100 Mg Tablet) 100 mg PO BEDTIME [facility] Last Admin: 01/02/24 20:01 Dose: 100 mg Documented By: ARIAN Ropinirole HCl (Ropinirole Hcl 1 Mg Tablet) 3 mg PO BEDTIME [facility] Last Admin: 01/02/24 20:00 Dose: 3 mg Documented By: ARIAN Sodium Bicarbonate (Sodium Bicarbonate 650 Mg Tablet) 650 mg PO BID [facility] Last Admin: 01/03/24 08:48 Dose: 650 mg Documented By: MACR Sodium Chloride (0.9 % Sodium Chloride Flush 3 Ml Syringe) 3 ml IVFLUSH QSHIFT [facility] Last Admin: 01/03/24 08:52 Dose: 3 ml Documented By: MARC Vitamin D (Cholecalciferol (Vitamin D3) 25 Mcg Tablet) 25 mcg PO DAILY [facility] Last Admin: 01/03/24 08:48 Dose: 25 mcg Documented By: MARC Labs 01/01/24 23:13 12/30/23 06:38 Microbiology Microbiology Results: Microbiology 01/02/24 Unknown Urine Culture - Final Urine clean catch - Clean Catch Midstream 01/01/24 23:13 Blood Culture - Preliminary Blood - Venous No growth after 24 hours. 01/01/24 23:13 Blood Culture - Preliminary Blood - Venous No growth after 24 hours. Assessment and Plan (1) Hematuria: Status: Acute Assessment and Plan: 73-year-old male with a PMH significant for?prostate cancer s/p prostatectomy and radiation therapy complicated by radiation proctitis, CAD s/p PCI in 2014, carotid artery stenosis s/p bilateral carotid stenting, hx of cerebral hemorrhage, epilepsy, HLD, HTN, restless leg syndrome, and anxiety who presents to the ED for evaluation right lower lump, chills and diagnosed to have severe sepsis, MARKUS acute blood loss anemia and hematuria. sirs (on01/01/24): denies any dysuria no sob or cough ua seems similar cxr neg blood cultures pending lactic acid normal respiratory viral panel-negative no fevers afterwards cotninue to moniter -blood culture prelim neg at 24hrs , urine culture -mixed nas Severe sepsis due to acute pyelonephritis, urine culture lactobacilus and E. coli. sepsis resolved completed 14d IV antibiotics. 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 added back asa. s/p Cystoscopy, clot evacuation, failed attempt at retrograde on 12/12. cbi punch colour urine , urology rec : tranexamic acid IV x1 dose(12/29/23) ,another dose ordered (12/30/23). off cbi now -placed [place] catheter per urology Acute kidney injury--likely from obstructive uropathy, Cr nl - resolved with Epps, will likely need chronic epps. Metabolic acidosis d/t renal failure, elevated B-hydroxy? starvation, ketosis, resolved. Acute blood loss anemia d/t hematuria -s/p transfusion 2 units of 12/08 and 1 unit on 12/14 with good effect, h/h lower d/t ongoing anemia, Hgb is 9.7 Chronic diarrhea No recurrent diarrhea, had normal bowel movement has been incontinent of urine and stool x several months CT of abdomen and pelvis showed generalized rectal wall thickening surrounding the stool ball, with surrounding fat stranding consistent with proctitis , similar findings noted on prior imaging studies Previously seen by GI they recommended mesalamine by mouth t.i.d. and cholestyramine. But as per patient he was later instructed to stop these medications. 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 CT 12/11:Moderate stool burden. Otherwise the large and small bowel are normal in caliber. Rectal wall thickening and perirectal inflammatory fat stranding. -bowel regimen CAD/history of bilateral carotid stenting was on aspirin, Plavix given persistent bleeding more than 2 weeks-both meds were on hold . urology follow up-hematuria resolved ,off cbi, rec-to start asa -moniter next 24 hrs. HTN--continue Norvasc Mood disorder:Continue home meds. Moderate protein calorie malnutrition add supplements DVT Prophylaxis: Mechanical device, d/t active hematuria and anemia needing transfusion Pt will require continued inpatient hospitalization for treatment of hematuria requiring CBI PT is following and doesn't require rehab, ongoing need for hospitlisation :hematuria improving -on asa and with activity -if does improves ,plan dispo. d/w her daughter. Quality Stroke Does the patient have a stroke diagnosis?: No VTE Prior VTE?: No VTE Risk Level:: Medical - moderate - high VTE Device Contraindication: N/A - Device Ordered VTE Drug Contraindication: Treatment Not Indicated
[2024-01-03] MEDS: PARoxetine HCL 30 MG TABLET 60 MG PO (20:46)
[2024-01-03] MEDS: rOPINIRole HCL 1 MG TABLET 3 MG PO (20:46)
[2024-01-03] MEDS: QUEtiapine Fumarate 100 MG TABLET PO (20:46)
[2024-01-03] MEDS: Mirtazapine 15 MG TABLET PO (20:47)
[2024-01-03] MEDS: Melatonin 3 MG TABLET 6 MG PO (20:48)
[2024-01-03] MEDS: cefuroxime axetiL 500 MG TABLET PO (22:24)
[2024-01-04] VITALS: BP 101/55; PULSE 93; RESP 20; TEMP 36.7; O2SAT 91
[2024-01-04 04:00] VITALS: BP 104/55; PULSE 82; RESP 20; TEMP 36.7; O2SAT 95
[2024-01-04 08:00] VITALS: BP 107/58; PULSE 80; RESP 20; TEMP 36.9; O2SAT 95
[2024-01-04] MEDS: Atorvastatin Calcium 80 MG TABLET PO (09:10)
[2024-01-04] MEDS: Cyanocobalamin (Vitamin B-12) 1,000 MCG TABLET 1000 MCG PO (09:10)
[2024-01-04] MEDS: cefuroxime axetiL 250 MG TABLET PO (09:10)
[2024-01-04] MEDS: Sodium Bicarbonate 650 MG TABLET PO (09:10)
[2024-01-04] MEDS: amLODIPine Besylate 5 MG TABLET PO (09:10)
[2024-01-04] MEDS: Aspirin 81 MG TAB.CHEW PO (09:10)
[2024-01-04] MEDS: Cholecalciferol (Vitamin D3) 25 MCG TABLET PO (09:10)
[2024-01-04] MEDS: 0.9 % Sodium Chloride Flush 3 ML SYRINGE IVFLUSH (09:13)
--- NOTE | 2024-01-04 10:14 | P.PNIM_ITS ---
Subjective Subjective Date of Service: 01/04/24 Interval History: hematuria Review of Systems prolonged hositalization for hematuria, sepsis, pyelonephritis, markus -issues are stable, epps removed, no further hematuria Physical Exam 2 Vital Signs: Vital Signs: Last Vital Signs Temp 98.5 F 01/04/24 08:00 Pulse 80 01/04/24 08:00 Resp 20 01/04/24 08:00 BP 107/58 L 01/04/24 08:00 Pulse Ox 95 01/04/24 08:00 O2 Del Method Room Air 01/04/24 08:00 O2 Flow Rate 4 12/13/23 16:19 BMI result Body Mass Index 18.1 CVS :regular rate rhythm, Res: lungs clear to auscultation, no respiratory distress, no wheezing or rales. Gi: abdomen soft, non tender, bowel sounds audible, no guarding , no rigidity. Extremities no edema. Neuro non focal , speech clear. Skin no rash Psych appropriate affect has [place] cath-more clear,yellowish colour urine Objective Data Active Medications Acetaminophen (Acetaminophen 325 Mg Tablet) 650 mg PO Q6H PRN PRN Reason: Pain, Mild (Pain Scale 1-3), fever or headache Last Admin: 01/01/24 20:44 Dose: 650 mg Documented By: ROBBIE Amlodipine Besylate (Amlodipine Besylate 5 Mg Tablet) 5 mg PO DAILY [facility]; Protocol Last Admin: 01/04/24 09:10 Dose: 5 mg Documented By: MARC Aspirin (Aspirin 81 Mg Tab.Chew) 81 mg PO DAILY [facility] Last Admin: 01/04/24 09:10 Dose: 81 mg Documented By: MARC Atorvastatin Calcium (Atorvastatin Calcium 80 Mg Tablet) 80 mg PO DAILY [facility] Last Admin: 01/04/24 09:10 Dose: 80 mg Documented By: MARC Benzonatate (Benzonatate 100 Mg Capsule) 100 mg PO TID PRN PRN Reason: Cough Calcium Carbonate (Calcium Carbonate 750 Mg Tab.Chew) 750 mg PO Q4H PRN PRN Reason: Heartburn Cefuroxime Axetil (Cefuroxime Axetil 250 Mg Tablet) 250 mg PO BID [facility] Last Admin: 01/04/24 09:10 Dose: 250 mg Documented By: MARC Cyanocobalamin (Cyanocobalamin (Vitamin B-12) 1,000 Mcg Tablet) 1,000 mcg PO DAILY [facility] Last Admin: 01/04/24 09:10 Dose: 1,000 mcg Documented By: MARC Loperamide HCl (Loperamide Hcl 2 Mg Capsule) 2 mg PO Q6H PRN PRN Reason: Diarrhea Last Admin: 01/03/24 20:47 Dose: 2 mg Documented By: ARIAN Magnesium Hydroxide (Milk Of Magnesia 30 Ml Oral.Susp) 30 ml PO DAILY PRN PRN Reason: Constipation Last Admin: 12/29/23 16:22 Dose: 30 ml Documented By: RAJANI Melatonin (Melatonin 3 Mg Tablet) 6 mg PO BEDTIME PRN PRN Reason: Insomnia Last Admin: 01/03/24 20:48 Dose: 6 mg Documented By: ARIAN Mirtazapine (Mirtazapine 15 Mg Tablet) 15 mg PO BEDTIME HERMINIO Last Admin: 01/03/24 20:47 Dose: 15 mg Documented By: ARIAN Ondansetron HCl (Ondansetron Hcl 4 Mg/2 Ml Vial) 4 mg IVPUSH Q8H PRN PRN Reason: Nausea and Vomiting Last Admin: 12/12/23 21:24 Dose: 4 mg Documented By: SIMONA Comments: Dry heaving/nausea Paroxetine HCl (Paroxetine Hcl 30 Mg Tablet) 60 mg PO BEDTIME HERMINIO Last Admin: 01/03/24 20:46 Dose: 60 mg Documented By: ARIAN Polyethylene Glycol (Polyethylene Glycol 3350 17 Gm Powd.Pack) 17 gm PO DAILY PRN PRN Reason: Constipation Last Admin: 12/14/23 20:13 Dose: 17 gm Documented By: DIMA Quetiapine Fumarate (Quetiapine Fumarate 100 Mg Tablet) 100 mg PO BEDTIME HERMINIO Last Admin: 01/03/24 20:46 Dose: 100 mg Documented By: ARIAN Ropinirole HCl (Ropinirole Hcl 1 Mg Tablet) 3 mg PO BEDTIME [facility]MIN[facility] Last Admin: 01/03/24 20:46 Dose: 3 mg Documented By: ARIAN Sodium Bicarbonate (Sodium Bicarbonate 650 Mg Tablet) 650 mg PO BID HERMIN[facility] Last Admin: 01/04/24 09:10 Dose: 650 mg Documented By: MARC Sodium Chloride (0.9 % Sodium Chloride Flush 3 Ml Syringe) 3 ml IVFLUSH QSHIFT [facility] Last Admin: 01/04/24 09:13 Dose: 3 ml Documented By: MARC Vitamin D (Cholecalciferol (Vitamin D3) 25 Mcg Tablet) 25 mcg PO DAILY [facility] Last Admin: 01/04/24 09:10 Dose: 25 mcg Documented By: MARC Labs 01/01/24 23:13 12/30/23 06:38 Microbiology Microbiology Results: Microbiology 01/01/24 23:13 Blood Culture - Preliminary Blood - Venous No growth after 48 hours. 01/01/24 23:13 Blood Culture - Preliminary Blood - Venous No growth after 48 hours. 01/02/24 Unknown Urine Culture - Final Urine clean catch - Clean Catch Midstream Assessment and Plan (1) Hematuria: Status: Acute Assessment and Plan: 73/m- w/ history prostate cancer s/p prostatectomy and radiation therapy complicated by radiation proctitis, CAD s/p PCI in 2014, carotid artery stenosis s/p bilateral carotid stenting, hx of cerebral hemorrhage, epilepsy, HLD, HTN, restless leg syndrome, and anxiety who presents to the ED for evaluation right lower lump, chills and diagnosed to have severe sepsis, MARKUS acute blood loss anemia and hematuria. sirs (on01/01/24): negative work up, no abx , resolved. Severe sepsis due to acute pyelonephritis on presenataton, , urine culture lactobacilus and E. coli. sepsis resolved completed 14d IV antibiotics. 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 -Was on cbi for long period of time, and ultimately had tranexamic acid IV x 2 doses, hematuria has resolved and epps removed -ASA restarted 01/02 without bldding, hold Plavix for now Acute kidney injury--likely from obstructive uropathy, Cr nl - resolved with Epps, will likely need chronic epps. Metabolic acidosis d/t renal failure, elevated B-hydroxy? starvation, ketosis, resolved. Acute blood loss anemia d/t hematuria -s/p transfusion 2 units of 12/08 and 1 unit on 12/14 with good effect, h/h lower d/t ongoing anemia, Hgb is 9.7 Chronic diarrhea No recurrent diarrhea, had normal bowel movement has been incontinent of urine and stool x several months CT of abdomen and pelvis showed generalized rectal wall thickening surrounding the stool ball, with surrounding fat stranding consistent with proctitis , similar findings noted on prior imaging studies Previously seen by GI they recommended mesalamine by mouth t.i.d. and cholestyramine. But as per patient he was later instructed to stop these medications. 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 CT 12/11:Moderate stool burden. Otherwise the large and small bowel are normal in caliber. Rectal wall thickening and perirectal inflammatory fat stranding. -bowel regimen CAD/history of bilateral carotid stenting was on aspirin, Plavix given persistent bleeding more than 2 weeks-both meds were on hold . urology follow up-hematuria resolved ,off cbi, rec-to start asa -moniter next 24 hrs, restart Plavix in 24 hrs HTN--continue Norvasc Mood disorder:Continue home meds. Moderate protein calorie malnutrition add supplements DVT Prophylaxis: Mechanical device, d/t active hematuria and anemia needing transfusion Pt will require continued inpatient hospitalization for treatment of hematuria requiring CBI PT is following and doesn't require rehab, ongoing need for hospitlisation :hematuria improving -on asa and with activity -if does improves ,plan dispo. d/w her daughter. Quality Stroke Does the patient have a stroke diagnosis?: No VTE Prior VTE?: No VTE Risk Level:: Medical - moderate - high VTE Device Contraindication: N/A - Device Ordered VTE Drug Contraindication: Treatment Not Indicated
--- NOTE | 2024-01-04 11:22 | MHC.CM.PN ---
Second IMM given 01/03. Pt is medically cleared for discharge home with new [facility] services, pts daughter will transport him home.
[2024-01-04 11:41] VITALS: BP 107/56; PULSE 82; RESP 16; TEMP 37.2; O2SAT 96
--- NOTE | 2024-01-04 12:36 | P.DS_ITS ---
DS: Providers Provider Date of Service: 01/04/24 Date of admission: 12/04/23 17:16 Date of discharge: 01/04/24 Primary care physician: Jayy Foster MD Consults: 12/04/23 17:24 Consult to Urology Routine Consulting Provider: [facility] Reason for consultation: b/l hydronephrosis/hematuria Has provider been notified: No 12/05/23 02:23 Consult to Wound Care Routine Reason for consultation: Redness to coccyx 12/12/23 02:52 Consult to Urology Routine Consulting Provider: [facility] Reason for consultation: hematuria 12/12/23 16:00 Consult to Nephrology Routine Consulting Provider: [facility] Reason for consultation: MARKUS on CKD 01/03/24 10:40 Consult to Infectious Diseases Routine Consulting Provider: [facility] Reason for consultation: sirs Has provider been notified: No DS: Diagnosis Discharge Diagnosis (1) Hematuria: Status: Resolved DS: Summary Hospital Course Hospital Course: Chief Complaint: Abdominal pain 73-year-old gentleman with past medical history of prostate cancer status post prostatectomy and radiation therapy complicated by radiation proctitis, CAD s/p PCI in 2015, carotid artery stenosis s/p bilateral carotid stenting, hx of cerebral hemorrhage, epilepsy, HLD, HTN, restless leg syndrome, and anxiety who presents to the ED due to symptoms of abdominal pain that started last evening felt a lump right lower quadrant that disappeared this morning ,but overnight patient continued to have multiple episodes of brown muddy stools, of note patient has history of chronic diarrhea he moves up to 6-8 bowel movements daily and has no control, uses briefs, he noticed blood in the briefs, was unable to urinate, passed blood clots, this morning he felt weak, tired, he chronically feels cold, denied fevers, vomited x1, he denies chest pain, no palpitations, no shortness a breath, denies back pain, in the emergency room he was noted to have brown stools not mixed with blood, but noted to have david blood from meatus and clots ,Epps catheter was placed and noted to have david hematuria ,CBI initiated at present continued to have punch colored urine, blood work showed MARKUS, anemia , lactic acidosis, leukocytosis on arrival noted to have low blood pressure, patient treated with IV Zosyn, IV fluids and now being admitted to [facility] with a diagnosis of severe sepsis likely due to acute pyelonephritis. Hospital course: 73/m- w/ history prostate cancer s/p prostatectomy and radiation therapy complicated by radiation proctitis, CAD s/p PCI in 2014, carotid artery stenosis s/p bilateral carotid stenting, hx of cerebral hemorrhage, epilepsy, HLD, HTN, restless leg syndrome, and anxiety who presents to the ED for evaluation right lower lump, chills and diagnosed to have severe sepsis, MARKUS acute blood loss anemia and hematuria. His hospital course prolonged by persistent hematuria that took weeks to resolved. Initial presentation of severe sepsis due to acute pyelonephritis on presenataton, , urine culture lactobacilus and E. coli. sepsis resolved completed 14d IV antibiotics SIRS on 12/31, fever resolved, WBV normal. 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 -Was on cbi for long period of time, and ultimately had tranexamic acid IV x 2 doses, hematuria has resolved and epps removed -ASA restarted 01/02 without bldding, hold Plavix for another 24 hours. Should follow up with Dr. Evangelista Acute kidney injury--likely from obstructive uropathy, resolved with insertion of epps cather and irigation of bladder via CBI Metabolic acidosis d/t renal failure, elevated B-hydroxy? starvation, ketosis, resolved. Acute blood loss anemia d/t hematuria -s/p transfusion 2 units of 12/08 and 1 unit on 12/14 with good effect, h/h lower d/t ongoing anemia, Hgb is 9.7 Chronic diarrhea--intermittently gets diarrhea and has been known to be incontinent of stool for months CT of abdomen and pelvis showed generalized rectal wall thickening surrounding the stool ball, with surrounding fat stranding consistent with proctitis , similar findings noted on prior imaging studies Previously seen by GI they recommended mesalamine by mouth t.i.d. and cholestyramine. But as per patient he was later instructed to stop these medications. 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 CT 12/11:Moderate stool burden. Otherwise the large and small bowel are normal in caliber. Rectal wall thickening and perirectal inflammatory fat stranding. -bowel regimen CAD/history of bilateral carotid stenting was on aspirin, Plavix given persistent bleeding more than 2 weeks-both meds were on hold . urology follow up-hematuria resolved ,off cbi, rec-to start asa -moniter next 24 hrs, restart Plavix in 24 hrs HTN--Previsously on Lisinopril and Imdure but since blood pressure has been on low side, lisinopril and Imdur have been stopped. He is instead on Norvasc 5 mg dailyl Time Attestation Discharge Coordination Time (in mins): 35 Quality: Safe Use of Opioids Does Pt have an Active Cancer Diagnosis on the Problem List?: No Quality: Stroke Does the patient have a stroke diagnosis?: No Physical Exam Vital Signs: Vital Signs: Last Vital Signs Temp 99.0 F 01/04/24 11:41 Pulse 82 01/04/24 11:41 Resp 16 01/04/24 11:41 BP 107/56 L 01/04/24 11:41 Pulse Ox 96 01/04/24 11:41 O2 Del Method Room Air 01/04/24 11:41 O2 Flow Rate 4 12/13/23 16:19 BMI result Body Mass Index 18.1 DS: Data Data Completed and Pending Completed studies during hospitalization [Text1]: Procedures Transfusion of Nonautologous Red Blood Cells into Peripheral Vein, Percutaneous Approach (12/01/22) Labs on day of discharge: Preliminary micro results at discharge 01/01/24 23:13 Blood Culture - Preliminary Blood - Venous No growth after 48 hours. 01/01/24 23:13 Blood Culture - Preliminary Blood - Venous No growth after 48 hours. Discharge Plan Discharge Anticipated Discharge Date/Time: 01/04/24 12:40 Patient Disposition: Home Health Service Discharge Diagnosis: Hematuria, MARKUS, anemia, bladder outlet obstruction, pyelonephritis Referrals: [facility]i [facility] [Outside] - 1 Week Jayy Foster MD [Primary Care Provider] - 1 Week Discharge Medications: New cefuroxime axetil 250 mg Tablet 250 mg PO BID Qty: 16 0RF loperamide [Imodium A-D] 2 mg tablet 2 mg PO Q6H PRN (Reason: diarrhea) Qty: 30 0RF Continued rosuvastatin 40 mg tablet 40 mg PO DAILY Qty: 100 2RF zolpidem 10 mg tablet 10 mg PO BEDTIME PRN (Reason: insomnia) Qty: 30 1RF ropinirole 3 mg tablet 3 mg PO BEDTIME Qty: 100 2RF clopidogrel 75 mg tablet 75 mg PO DAILY Qty: 100 2RF alprazolam 1 mg tablet 1 mg PO BID PRN (Reason: anxiety) 30 Days Qty: 60 0RF cyanocobalamin (vitamin B-12) 1,000 mcg Tablet 1,000 mcg PO DAILY cholecalciferol (vitamin D3) 25 mcg (1,000 unit) Tablet 25 mcg PO DAILY Centrum Silver Men [phone] mcg Tablet 1 tab PO DAILY aspirin [Adult Low Dose Aspirin] 81 mg tablet,delayed release (DR/EC) 81 mg PO DAILY Discontinued isosorbide mononitrate 30 mg tablet extended release 24 hr 30 mg PO DAILY 90 Days Qty: 90 1RF mirtazapine 30 mg tablet 30 mg PO BEDTIME 90 Days Qty: 90 3RF lisinopril 20 mg tablet 20 mg PO DAILY No Action paroxetine HCl 30 mg tablet 60 mg PO QAM Qty: 180 3RF quetiapine 100 mg tablet 100 mg PO BEDTIME Qty: 90 3RF mirtazapine 15 mg tablet 15 mg PO BEDTIME Qty: 30 0RF amlodipine 5 mg tablet 5 mg PO DAILY Qty: 30 0RF Protocol: Hold for SBP< HOLD for SBP < : 90 Discharge Orders: Discharge Order (Routine); Ordered 01/04/24 Ordered By: Wiley Jeffries Diet: Advance to usual diet Activity on Discharge: As tolerated Stand Alone Forms: Patient Portal Discharge page Print Language: Liberian Care Plan Goals: recovery from uti, pyeloneoprhitis, hematuria, renal failure and prolonged hos pitalization Health Concerns: hematuria, anemia, uti, chronic diarrhea, Plan of Treatment: take cefuroxime as directed for urinary tract infection you may resume plavix tomorrow if you notice any sings of bleeding, stop taking aspirin and plavix and call 911 Assessment: see above Discharge Date/Time: 01/04/24 16:17
--- NOTE | 2024-01-04 12:55 | P.F2F_ITS ---
Service Date Service Date: 01/04/24 Encounter Date of encounter: 01/04/24 Reasons for Services Signs and symptoms assessed: weakness from prolonged hospitalization from sepsis, uti, hematuria, anemia and renal failure Reason for long-term: medication management, teach disease management and GI/ assessment Reason for physical therapy: home safety and mobility and therapeutic exercises Homebound: Leaving the home is medically contraindicated at this time without the asist of a device and/or another person due th the listed conditions above and below. Reason homebound: weakness related to hospital stay Homebound supporting statement: homebound due to weakness from prolonged hospitalization due to hematuria, renal failure, sepsis,pyelonephritis, and renal failure Certification: Based on the above findings, I certify that this patient is confined to the home and needs intermittent long-term care, physical therapy and/or speech therapy, or continues to need occupational therapy. The patient is under my care, and I have initiated the establishment of the plan of care. The patient will be followed by a physician who will periodically review the plan of care. Time Spent With Patient Time: Total time managing care of this patient today ____ minutes.
[2024-01-04 15:00] VITALS: O2SAT 97
--- NOTE | 2024-01-06 22:03 | P.CNID_ITS ---
History of Present Illness Data of Consult Service Date: 01/03/24 Requesting physician: Alyssa Carty Primary Care Provider: Jayy Foster MD HPI Reason for consult: hematuria He has hematuria for a day. He has some dysuria as well. He reports having enlarged prostate Review of Systems 2 Review of Systems: Yes all other systems are reviewed and are negative PMFSH Past Medical History Medical History Coronary artery disease Radiation proctitis Abnormal stress test Unstable angina Chest pain Elevated troponin I level Multiple falls Positive colorectal cancer screening using Cologuard test Anal discharge Depression Anxiety Prostate cancer Restless legs syndrome Epilepsy 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 Degenerative disc disease, cervical Impaired fasting glucose Pure hypercholesterolemia Bilateral carotid artery stenosis Benign essential hypertension Family History Family History Father Cancer Mother Chronic mental illness Son In good health Daughter In good health Family history: reviewed and not pertinent Surgical History Surgical History Hx of colonoscopy History of common carotid artery stent placement H/O radical prostatectomy History of inguinal hernia repair Social History Social History Household Members: Children Housing: House Do you presently have visiting nurse or other home services: No Alcohol intake: never Patient Tobacco Use Status: Former Tobacco user Tobacco use type: Cigarette e-Cigarette/Vaping Use: Never Used Second Hand Smoke Exposure: No Substance Use Type: Marijuana Advance Directives Date on File: 12/08/22 service: No Current occupational status: retired Cognitive needs: No Hearing needs: No Vision needs: Yes Meds Allergies Allergy/AdvReac Type Severity Reaction Status Date / Time zolpidem AdvReac Unknown sleepwalkin Verified 12/04/23 12:03 g Home Medications ?Medication ?Instructions ?Recorded ?Confirmed ?Last Taken ?Type cholecalciferol (vitamin D3) 25 25 mcg PO DAILY 12/01/22 01/05/24 12/02/23 History mcg (1,000 unit) tablet cyanocobalamin (vitamin B-12) 1,000 mcg PO DAILY 12/01/22 01/05/24 12/02/23 History 1,000 mcg tablet [id number]-[id number] 300 mcg-K 60 1 tab PO DAILY 12/01/22 01/05/24 12/02/23 History mcg-lycop 600 mcg-lutein 300 mcg tablet (Centrum Silver Men) aspirin 81 mg tablet,delayed 81 mg PO DAILY 02/19/23 01/05/24 12/02/23 History release (Adult Low Dose Aspirin) paroxetine HCl 30 mg tablet 60 mg PO BEDTIME 07/28/23 01/05/24 12/02/23 History Physical Exam 2 Vital Signs: Vital Signs: Last Vital Signs Temp 99.0 F 01/04/24 11:41 Pulse 82 01/04/24 11:41 Resp 16 01/04/24 11:41 BP 107/56 L 01/04/24 11:41 Pulse Ox 97 01/04/24 15:00 O2 Del Method Room Air 01/04/24 15:00 O2 Flow Rate 4 12/13/23 16:19 BMI result Body Mass Index 18.1 Const: General: cooperative HEENT: Head: Yes normal to inspection Face and sinus: Yes normal facial exam Mouth: Normal oral and palatal mucosa present Teeth and gingiva: d entition normal Eyes: General: appearance normal, both eyes and all related structures P upils: Equal, round and reactive pupils present Resp: Effort & Inspection: normal respiratory effort Cardio: Rate: regular rate Rhythm: regular rhythm GI: Palpation (GI): Soft to palpation and nontender : General: Yes no CVA tenderness Back/Spine/Pelvis: Back: no CVA tenderness Skin: General skin exam: no rashes or lesions noted Neuro: General: moves all extremities Cranial nerves: Yes Equal, round and reactive pupils present Extrem: General: Yes normal to inspection Psych: Appearance: grossly normal Results Labs 01/01/24 23:13 12/30/23 06:38 Microbiology Microbiology Results: Microbiology 01/01/24 23:13 Blood - Venous Blood Culture - Preliminary No growth after 48 hours. 01/01/24 23:13 Blood - Venous Blood Culture - Preliminary No growth after 48 hours. 01/02/24 Unknown Urine clean catch - Clean Catch Midstream Urine Culture - Final 12/08/23 21:17 Blood - Venous Blood Culture - Final No growth after 5 days. 12/08/23 21:17 Blood - Venous Blood Culture - Final No growth after 5 days. 12/04/23 13:55 Blood - Venous Blood Culture - Final No growth after 5 days. 12/04/23 13:55 Blood - Venous Blood Culture - Final No growth after 5 days. 12/04/23 Unknown Urine clean catch - Clean Catch Midstream Urine Culture - Final Escherichia coli Lactobacillus species Assessment and Plan (1) Urinary retention: Status: Acute (2) Hematuria: Qualifiers: Hematuria type: gross Qualified Code(s): R31.0 - Gross hematuria Status: Acute Plan Probable UTI causing hematuria. Would continue antibiotics po cephalosporin total 14 F/U Urology
== END 2024-01-04 16:17 | disposition home health service (06) | DRG 872 ==
LOC: HO.ED 16:28 → HO.EDOVER 17:25 → HO.IMC 19:45
PROVIDERS: Internal Medicine; Student in an Organized Health Care Education/Training Program; Urology; Admitting Provider Hospitalist; Emergency Provider Emergency Medicine; PCP Internal Medicine; Visit Provider Internal Medicine
PROC: 0TCB8ZZ Extirpation of Matter from Bladder, Via Natural or Artificial Opening Endoscopic (ICD-10-PCS; principal; 2023-12-13 14:30)
DX: A41.9 Sepsis, unspecified organism (principal); N17.9 Acute kidney failure, unspecified; N30.41 Irradiation cystitis with hematuria; D62 Acute posthemorrhagic anemia; E44.0 Moderate protein-calorie malnutrition; Z68.1 Body mass index [BMI] 19.9 or less, adult; N13.6 Pyonephrosis; E87.22 Chronic metabolic acidosis; K52.0 Gastroenteritis and colitis due to radiation; I25.10 Atherosclerotic heart disease of native coronary artery without angina pectoris; E78.5 Hyperlipidemia, unspecified; R65.20 Severe sepsis without septic shock; N32.0 Bladder-neck obstruction; G25.81 Restless legs syndrome; B96.20 Unspecified Escherichia coli [E. coli] as the cause of diseases classified elsewhere; L89.152 Pressure ulcer of sacral region, stage 2; E87.8 Other disorders of electrolyte and fluid balance, not elsewhere classified; I10 Essential (primary) hypertension; Z20.822 Contact with and (suspected) exposure to COVID-19; F39 Unspecified mood [affective] disorder; Z95.5 Presence of coronary angioplasty implant and graft; Z85.46 Personal history of malignant neoplasm of prostate; Z87.891 Personal history of nicotine dependence; Z90.79 Acquired absence of other genital organ(s); Z79.02 Long term (current) use of antithrombotics/antiplatelets; Z79.82 Long term (current) use of aspirin; Z79.899 Other long term (current) drug therapy
CPT/HCPCS: 0241U; 36415; 36600; 71045; 74176; 80048; 80076; 81001; 81003; 82010; 82272; 82803; 83605; 83690; 83735; 83880; 84484; 85025; 85027; 85610; 86140; 86850; 86900; 86901; 86923; 87040; 87086; 87088; 87186; 87507; 87633; 92950; 93005; 97110; 97116; 97162; 97530; 99285; C1758; C1769; J0696; J1100; J1956; J2270; J2371; J2405; J2543; J2704; J3010; J7120; P9016; Q9967

== ENCOUNTER → 2023-12-04 12:22 | Outpatient (BNV) | payer MEDICARE, SELFPAY | PROVIDERS: Admitting Provider Hospitalist; Emergency Provider Emergency Medicine; PCP Internal Medicine; Visit Provider Internal Medicine Cardiovascular Disease | DX: I95.9 Hypotension, unspecified (principal) | CPT/HCPCS: 93010 ==

== ENCOUNTER → 2023-12-04 17:16 | Outpatient (BNV) | payer MEDICARE, SELFPAY | PROVIDERS: Admitting Provider Hospitalist; Emergency Provider Emergency Medicine; PCP Internal Medicine; Visit Provider Internal Medicine | DX: R33.9 Retention of urine, unspecified (principal); R31.0 Gross hematuria | CPT/HCPCS: 99222 ==

== ENCOUNTER → 2023-12-04 17:16 | Outpatient (BNV) | payer MEDICARE, SELFPAY | PROVIDERS: Admitting Provider Hospitalist; Emergency Provider Emergency Medicine; PCP Internal Medicine; Visit Provider Hospitalist | DX: R31.0 Gross hematuria (principal) | CPT/HCPCS: 99223; 99231; 99232; 99233; 99239; 99499; G0180 ==

== ENCOUNTER → 2023-12-04 17:16 | Outpatient (BNV) | payer MEDICARE, SELFPAY | PROVIDERS: Admitting Provider Hospitalist; Emergency Provider Emergency Medicine; PCP Internal Medicine; Visit Provider Urology | DX: R31.0 Gross hematuria (principal); N13.30 Unspecified hydronephrosis | CPT/HCPCS: 52001; 74420; 99222; 99232 ==

== ENCOUNTER → 2023-12-04 17:16 | Outpatient (BNV) | payer MEDICARE, SELFPAY | PROVIDERS: Admitting Provider Hospitalist; Emergency Provider Emergency Medicine; PCP Internal Medicine; Visit Provider Internal Medicine Nephrology | DX: N17.9 Acute kidney failure, unspecified (principal) | CPT/HCPCS: 99223; 99232 ==

== ENCOUNTER → 2024-01-13 11:19 | Outpatient (BNVA) | payer MEDICARE, SELFPAY | PROVIDERS: PCP Internal Medicine; Visit Provider Nurse Practitioner Family ==

== ENCOUNTER 2024-01-24 15:38 | Outpatient (AMB) | payer MEDICARE, SELFPAY ==
[2024-01-24 15:40] VITALS: BP 116/70; PULSE 88; O2SAT 99; BMI 14.7
--- NOTE | 2024-01-24 15:40 | MHC.PC.OV ---
Vital Signs 01/24/24 15:40 Height 6 ft 1 in Weight 111 lb 6 oz BMI 14.7 BP 116/70 Blood Pressure Location Lt brachial Position Sitting Pulse 88 Pulse Source Pulse Oximeter Pulse Oximetry (%) 99 Oxygen Delivery Method Room Air Intake Visit Reasons: 3mth f/u Blood Tester Required: No Accompanied by: Self / Same As Patient Allergies zolpidem Adverse Reaction (Unknown, Verified 01/24/24 16:24) sleepwalking Medication List - Last Reconciled 01/24/24 by Jayy Foster MD amlodipine 5 mg See Protocol PO DAILY aspirin (Adult Low Dose Aspirin) 81 mg PO DAILY cholecalciferol (vitamin D3) 25 mcg PO DAILY clopidogrel 75 mg PO DAILY cyanocobalamin (vitamin B-12) 1,000 mcg PO DAILY mirtazapine 15 mg PO BEDTIME [id number] mcg (Centrum Silver Men) 1 tab PO DAILY paroxetine HCl 60 mg (2 x 30 mg) PO QAM quetiapine 100 mg PO BEDTIME ropinirole 3 mg PO BEDTIME rosuvastatin 40 mg PO DAILY zolpidem 10 mg PO BEDTIME PRN Tobacco use date assessed: 01/24/24 Fall risk assessment: No Falls in past year Last assessed Fall Risk: 01/24/24 Dental Screening Dental Screen Date: 01/24/24 Did you have a dental visit in the last 12 months?: No Did you have a dental problem in the last 6 months where you did not have access to dental care?: No Was dental information given to patient?: No HPI 3mth f/u HPI Details Patient comes in today for his follow up visit He was admitted to [facility] [place] for about a month from 12/04/2023 to 01/04/2024 for multiple issues brought about by sepsis/infection He initially presented to the ER for increasing abdominal pain and recent worsening of his chronic diarrhea, which had been presumed to be due to his radiation proctitis resulting from previous radiation Tx for his prostate cancer Initial work ups done at the ER revealed (+) david hematuria and lab works revealed findings of MARKUS, anemia, lactic acidosis and leucocytosis He was also noted to be hypotensive in the ER andwas started on empiric IV Abx Tx and admitted for pyelonephritis with sepsis Over the course of his admission, he received a total of 3 units of PRBC due to ongoing anemia Multiple specialties were also consulted and involved during his admission, including urology, GI, wound care and infectious disease His Lisinopril and Imdur were held due to low blood pressure and patient was eventually started on Amlodipine for his blood pressure instead Aspirin and Plavix were also initially held due to his GI and bleeding and these were later gradually reimplemented Patient states that he is currently OFF his Alprazolam as he now realizes that his frequent shaking/tremors all this time were NOT related to anxiety and since coming off Alprazolam, he has not noticed any increased anxiety at all but feels that his tremors are getting worse and is wondering what he can take for these He relates that he continues to have non-stop diarrhea of up to 8 to 10 episodes of watery bowel movements a day at a minimum and is requesting to be started back on his Oxycodone, which he states was the only medication that helped slow down his diarrhea when he was on it in the past States that he has exhausted all other medications, including OTC Imodium; he was also tried on Cholestyramine in the past but his insurance would not cover the Rx and he cannot afford to pay for the Rx [id number] States that he is just looking for some relief from his diarrhea and is not looking to get high on his meds He denies any fever; denies any headaches or dizziness Denies any chest pains, no increased SOB No nausea/vomiting, no abdominal pain and he currently denies any acute urinary symptoms [facility] Medical History Coronary artery disease Radiation proctitis Abnormal stress test Unstable angina Chest pain Elevated troponin I level Multiple falls Positive colorectal cancer screening using Cologuard test Anal discharge Depression Anxiety Prostate cancer Restless legs syndrome Epilepsy 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 Degenerative disc disease, cervical Impaired fasting glucose Pure hypercholesterolemia Bilateral carotid artery stenosis Benign essential hypertension Surgical History Hx of colonoscopy History of common carotid artery stent placement H/O radical prostatectomy History of inguinal hernia repair Family History Father Cancer Mother Chronic mental illness Son In good health Daughter In good health Social History Household Members: Children Housing: House Do you presently have visiting nurse or other home services: No Alcohol intake: never Patient Tobacco Use Status: Former Tobacco user Tobacco use type: Cigarette e-Cigarette/Vaping Use: Never Used Second Hand Smoke Exposure: No Substance Use Type: Marijuana Advance Directives Date on File: 12/08/22 service: No Current occupational status: retired Cognitive needs: No Hearing needs: No Vision needs: Yes Questionnaire PHQ-9 Over the last 2 weeks, how often have you been bothered by any of the following problems? 1. Little interest or pleasure in doing things: several days 2. Feeling down, depressed, or hopeless: nearly every day 3. Trouble falling or staying asleep, or sleeping too much: several days 4. Feeling tired or having little energy: several days 5. Poor appetite or overeating: several days 6. Feeling bad about yourself - or that you are a failure or have let yourself or your family down: several days 7. Trouble concentrating on things, such as reading the newspaper or watching television: several days 8. Moving or speaking so slowly that other people could have noticed. Or the opposite - being so fidgety or restless that you have been moving around a lot more than usual: several days 9. Thoughts that you would be better off or of hurting yourself in some way: not at all Total score: 10 Depression Screening Interpretation: Positive Depression Screening Follow-up: Existing condition and In treatment Depression Screening Done: Yes 23287 - PHQ-9 Billing: Yes Source: Developed by Drs. Rory Porter, Taniya Mayen, Phil Simms and colleagues, with an educational maria c from [employer]. Thrive Questionnaire Date Thrive assessed: 01/24/24 I am a: Patient What is your living situation today?: I have a steady place to live Within the past 12 months, did the food you bought not last and you didn't have the money to get more?: Never true Within the past 12 months, did you worry whether your food would run out before you got money to buy more?: Never true Do you have trouble paying for medicines?: No Do you have trouble getting transportation to medical appointments?: No Do you have trouble paying your heating and electricity bill?: No Do you have trouble taking care of your child, family member or friend?: No Do you have trouble with day-to-day activities such as bathing, preparing meals, shopping, managing finances, etc.?: No Are you currently unemployed and looking for a job?: I choose not to answer this question Are you interested in more education?: No Please select the resources that you would like help with: None Currently or been in a relationship where the following occur: No concerns reported THRIVE Score: 0 AUDIT C Alcohol Use Questionnaire (AUDIT-C) 1. How often do you have a drink containing alcohol?: Never 3. How often do you have six or more drinks on one occasion?: Never Total Score: 0 Score Reviewed/Action Taken: Yes ELISA-7 AMB Questionnaire ELISA-7 Date ELISA - 7 assessed: 01/24/24 Feeling nervous, anxious, or on edge: 3 = Nearly every day Not being able to stop or control worryin = Nearly every day Worrying too much about different things: 3 = Nearly every day Trouble relaxin = Nearly every day Being so restless that it is hard to sit still: 3 = Nearly every day Becoming easily annoyed or irritable: 3 = Nearly every day Feeling afraid as if something awful might happen: 1 = Several days Total ELISA-7 score (0-4 normal; 5-9 mild; 10-14 moderate; 15-21 severe): 19 Source: Developed by Drs. Rory Porter, Taniya Mayen, Phil Simms and colleagues, with an educational maria c from [employer]. ELISA-7 Assessment Billing ELISA-7 Assessment Tool: ELISA-7 Assessment 70300 Review of Systems Const Denies chills, Reports difficulty sleeping (chronic), Reports fatigue, Denies fever(s) and Denies headache(s) ENT Denies dysphagia, Denies dizziness, Denies otalgia, Denies headache(s), Reports neck pain (chronic), Denies odynophagia and Denies sore throat Card Denies chest pain, Denies palpitations and Reports dyspnea on exertion (mild) Resp Denies chest congestion, Denies cough and Reports dyspnea on exertion (mild) GI Denies abdominal pain, Reports hematochezia (at times), Denies constipation, Denies dysphagia, Denies heartburn, Reports diarrhea (recurrent/chronic), Reports loose stools (up to at least 8 to 10 episodes a day), Denies nausea, Denies odynophagia and Denies vomiting Denies hematuria, Denies dysuria, Denies nocturia and Denies urinary frequency Musc Denies back pain and Reports neck pain (chronic) Skin/Breast Denies rash Neuro Denies dizziness, Denies headache(s) and Reports tremor(s) (increasing) Psych Denies anxiety and Reports depression (controlled) Endo Reports fatigue and Denies palpitations Simba/Lymph Denies easy bruising Physical exam (Primary Care) Vital Signs: Last Vital Signs Pulse 88 01/24/24 15:40 BP 116/70 01/24/24 15:40 Pulse Ox 99 01/24/24 15:40 Oxygen Delivery Method Room Air 01/24/24 15:40 BMI result Body Mass Index 14.7 Tobacco/Smoking Status: Tobacco use Status Tobacco use date assessed 01/24/24 01/24/24 15:41 Patient Tobacco Use Status Former Tobacco user 01/24/24 15:41 Tobacco use type Cigarette 01/24/24 15:41 e-Cigarette/Vaping Use Never Used 01/24/24 15:41 PHQ-9: PHQ-9 Score PHQ-9: Total score 10 01/24/24 16:32 Depression Screening Interpretation: Positive Depression Screening Follow-up: Existing condition and In treatment Thrive Assessment: Date of Thrive Assessment Date Thrive assessed 01/24/24 01/24/24 15:41 Currently or been in a relationship where the following occur: No concerns reported Const General: no acute distress and alert HENMT Ears: TM's normal bilaterally and EAC's normal Throat: Yes posterior oropharynx normal and Yes tonsils normal Neck Neck: Yes no lymphadenopathy and Yes supple Thyroid: Thyroid normal Resp Auscultation: clear to auscultation bilaterally, no rales and no wheezes Cardio Rate: regular rate Rhythm: regular rhythm Heart sounds: no murmurs GI Palpation (GI): Soft to palpation and nontender Auscultation: normal bowel sounds General: Yes no CVA tenderness Back/Spine/Pelvis Back: no CVA tenderness Cervical Spine: Cervical spine tenderness (chronic) Thoracic/Lumbar Spine: No lumbar spinal tenderness Skin Rashes: no rashes Neuro Motor exam (neuro): Tremors during motor activity present (increased, especially in both hands) Extrem General: Yes no clubbing, cyanosis or edema Results Reviewed Results Reviewed: Laboratory Tests 01/01/24 23:13 WBC 6.6 Hgb 9.2 L Hct 27.8 L Plt Count 229 Coding Level of Care Code Est Pt Level 4 (78108) Diagnoses Diarrhea of presumed infectious origin R19.7 Diarrhea type: presumed infectious Coronary artery disease of [place] artery of [place] heart with stable angina pectoris I25.118 Associated angina: with stable angina Coronary Disease-Associated Artery/Lesion type: [place] artery [place] vs. transplanted heart: [place] heart Bilateral carotid artery stenosis I65.23 Pure hypercholesterolemia E78.00 Benign essential hypertension I10 Degenerative disc disease, cervical M50.30 Nonintractable epilepsy without status epilepticus, unspecified epilepsy type G40.909 Epilepsy type: unspecified Intractability: not intractable Status epilepticus: without status epilepticus Tremor R25.1 Restless legs syndrome G25.81 Prostate cancer C61 Insomnia, unspecified type G47.00 Insomnia type: unspecified Anxiety F41.9 Episode of recurrent major depressive disorder, unspecified depression episode severity F33.9 Active/Remission status: currently active Depression Type: major depressive disorder Major depression episode severity: unspecified Major depression recurrence: recurrent Additional Codes ELISA-7 Assessment Billing - ELISA-7 Assessment Tool: ELISA-7 Assessment [id number] ([id number])
== END 2024-01-24 16:35 | disposition home or self-care (01) ==
PROVIDERS: PCP Internal Medicine; Visit Provider Internal Medicine
DX: I25.118 Atherosclerotic heart disease of native coronary artery with other forms of angina pectoris (principal); G40.909 Epilepsy, unspecified, not intractable, without status epilepticus; C61 Malignant neoplasm of prostate; F33.9 Major depressive disorder, recurrent, unspecified; R19.7 Diarrhea, unspecified; I65.23 Occlusion and stenosis of bilateral carotid arteries; E78.00 Pure hypercholesterolemia, unspecified; I10 Essential (primary) hypertension; M50.30 Other cervical disc degeneration, unspecified cervical region; R25.1 Tremor, unspecified; G25.81 Restless legs syndrome; G47.00 Insomnia, unspecified

== ENCOUNTER → 2024-01-24 15:38 | Outpatient (BNVA) | payer MEDICARE, SELFPAY | PROVIDERS: PCP Internal Medicine; Visit Provider Internal Medicine | DX: R19.7 Diarrhea, unspecified (principal); I25.118 Atherosclerotic heart disease of native coronary artery with other forms of angina pectoris; I65.23 Occlusion and stenosis of bilateral carotid arteries; E78.00 Pure hypercholesterolemia, unspecified; I10 Essential (primary) hypertension; M50.30 Other cervical disc degeneration, unspecified cervical region; G40.909 Epilepsy, unspecified, not intractable, without status epilepticus; G25.81 Restless legs syndrome; C61 Malignant neoplasm of prostate; G47.00 Insomnia, unspecified; F41.9 Anxiety disorder, unspecified; F33.9 Major depressive disorder, recurrent, unspecified | CPT/HCPCS: 96127; 99212 ==

== ENCOUNTER 2024-02-09 12:39 | Emergency (ER) | payer MEDICARE, SELFPAY ==
[2024-02-09] VITALS (26 sets, daily range): BP systolic 60–154; BP diastolic 40–135; PULSE 105–126; RESP 23–32; TEMP 36.6; O2SAT 77–100; BMI 18.5
--- NOTE | 2024-02-09 | ECG_ITS ---
Test Reason : DYSPNEA Blood Pressure : / mmHG Vent. Rate : 119 BPM Atrial Rate : 119 BPM P-R Int : 160 ms QRS Dur : 068 ms QT Int : 306 ms P-R-T Axes : 087 064 083 degrees QTc Int : 430 ms Artifact in tracing Probably sinus rhythm Apart from artifact, no obvious abnormality. When compared with ECG of 04-DEC-2023 13:07, No significant changes seen Referred By: Ortiz Nam Electronically Signed By:ZAIRA BALBUENA
--- NOTE | ~2024-02-09 | XR_ITS ---
EXAMINATION: XR CHEST CLINICAL INFORMATION: Hypoxia COMPARISON: Chest x-ray January 02, 2024 TECHNIQUE: Frontal portable view of the chest was obtained. 1415 hours FINDINGS: Emphysematous hyperlucency of lungs. No acute airspace disease. No pleural effusion or pneumothorax. Heart size is normal. Cardiac and mediastinal contours normal. No pulmonary vascular congestion. XR/XR chest 1V IMPRESSION: No acute abnormality of chest. Electronically signed by: Terrell Thomas MD 02/09/2024 03:30 PM EDT
--- NOTE | ~2024-02-09 | CT_ITS ---
EXAMINATION: CT ABDOMEN AND PELVIS WITH CONTRAST CLINICAL INFORMATION: Sepsis. COMPARISON: CT abdomen and pelvis dated 12/12/2023. TECHNIQUE: Multidetector volumetric images were obtained from the superior aspect of the liver through the pubic symphysis following administration 85 mL of Omnipaque 350 intravenous contrast. Sagittal and coronal reformatted images were obtained on the technologist's workstation. Oral contrast: No This CT examination was performed using dose optimization techniques as appropriate, variously including the following: *Automated exposure control *Adjustment of mA and/or kV according to patient size (this includes techniques or standardized protocols for targeted exams where dose is matched to indication/reason for exam; i.e. extremities or head) *Use of iterative reconstruction technique DLP: 641 mGy-cm FINDINGS: LUNG BASES: There is mild bibasilar dependent hypoaeration. LIVER, GALLBLADDER, AND BILIARY TREE: The liver is normal in size, shape, and attenuation. No focal hepatic lesion or biliary ductal dilatation is present. The gallbladder is unremarkable with no evidence of radiopaque gallstones, gallbladder wall thickening, or obvious pericholecystic inflammatory changes. PANCREAS: Unremarkable. SPLEEN: Unremarkable. ADRENAL GLANDS: Unremarkable. KIDNEYS AND URETERS: The kidneys are normal in size, shape, and attenuation. No hydronephrosis, hydroureter, or calculi seen. There are low-attenuation, simple bilateral renal cysts, for which no imaging follow-up is recommended. No perinephric stranding. BLADDER: Decompressed by a Sesay catheter. There is nondependent air within the urinary bladder. There is generalized bladder wall thickening. GASTROINTESTINAL TRACT: There is mild colonic wall thickening, most pronounced in the rectosigmoid. There is mild diverticulosis, without acute diverticulitis. No obstruction, free intraperitoneal air or abscess is seen. The vermiform appendix is not identified with certainty; however, there is no finding to suggest appendicitis. ABDOMINAL WALL: There are very small fat-containing umbilical and right inguinal hernias. LYMPH NODES: Adjacent to the lesser curvature of the stomach (3:11 and 15), there are mildly enlarged lymph nodes, with respective short axis diameters of 1.0 cm and 1.1 cm. A periportal lymph node is seen with short axis diameter of 9 mm (3:23). There are shotty, nonpathologically enlarged para-aortic lymph nodes. A left iliac chain lymph node is seen, with short axis diameter of 9 mm (3:57). VASCULAR: There is marked aortoiliac atherosclerotic calcification. No abdominal aortic aneurysm or dissection is seen. PELVIC VISCERA: The prostate gland and seminal vesicles are not visualized and may be surgically absent. OSSEOUS STRUCTURES: There is multi-level mild lumbar spondylosis. No acute or aggressive osseous finding is noted. FREE FLUID: A small amount of free fluid is seen adjacent to the hepatic tail. Mild free fluid is seen layering along the bilateral anterior pararenal fasciae and within the bilateral paracolic gutters. A small amount of free fluid is seen within the leftward pelvis (3:64). CT/CT abdomen pelvis w IV con IMPRESSION: 1. There is mild wall thickening of the colon, particularly the rectosigmoid. This can be associated with infectious colitis, inflammatory bowel disease, and ischemia and neoplasm are considered less likely. 2. There is very mild diverticulosis, without acute diverticulitis. No obstruction, free intraperitoneal air or abscess is seen. 3. The urinary bladder is decompressed by Sesay catheter. There is wall thickening of the urinary bladder, likely infectious or inflammatory in etiology. Recommend correlation with the patient's most recent urinalysis. Previously noted hydronephrosis has improved in the interim. 4. There is mild abdominopelvic free fluid, as detailed. 5. There are mildly enlarged abdominopelvic lymph nodes, as detailed. These are likely infectious or inflammatory etiology. Recommend clinical correlation and continued attention on imaging follow-up. 6. No acute or aggressive osseous finding is noted. Fleischner guidelines were followed. Electronically signed by: Colton Nguyen MD 02/09/2024 10:19 PM EDT RP
--- NOTE | ~2024-02-09 | XR_ITS ---
EXAMINATION: XR CHEST CLINICAL INFORMATION: Status-post right internal jugular central venous catheter placement. COMPARISON: Prior chest radiographs, most recently 02/09/2024. TECHNIQUE: 2 frontal views of the chest were obtained. FINDINGS: The heart, great vessels, pulmonary vasculature and mediastinum are stable. There is interim placement of a right subclavian central venous catheter, with tip positioned in the cephalad right atrium. Again, there are emphysematous changes, with lucency of the upper lung mac. There is absence of right apical parenchymal markings which is unchanged from earlier comparison examinations. This likely reflects emphysematous changes with possible bleb and bulla formation. There is no pleural reflection to suggest the presence of an acute pneumothorax. No infiltrate or effusion is seen. There is no acute osseous abnormality. XR/XR chest 1V IMPRESSION: There is interval placement of a right subclavian central venous catheter, tip situated in the cephalad right atrium. There are emphysematous changes of the lungs, with probable chronic bleb and bullous formation at the right apex. No convincing pneumothorax is seen. Electronically signed by: Colton Nguyen MD 02/09/2024 09:47 PM EDT
--- NOTE | 2024-02-09 13:18 | ED_ITS ---
HPI - General Adult General Chief complaint: Dyspnea Stated complaint: SOB X2D,77% RA,BIPAP @ THIS TIME PER EMS Time Seen by Provider: 02/09/24 12:46 Source: patient Mode of arrival: EMS Limitations: no limitations History of Present Illness HPI narrative: This is a 74-year-old man with a past medical history of prostate cancer status post prostatectomy and radiation therapy complicated by radiation proctitis, CAD status post PCI in 2015, carotid artery stenosis status post bilateral carotid stenting, history of cerebral hemorrhage, epilepsy, hypertension, hyperlipidemia, this looks slightly syndrome and anxiety, recent admission 12/03- 01/03 for severe sepsis, acute kidney injury, acute blood loss anemia secondary to hematuria likely due to radiation cystitis status post cystoscopy with clot evacuation and pyelonephritis who presents by EMS for evaluation. Patient reports feeling unwell for the last 1 day. He reports associated diarrhea with red stool. He states no melena. He reports question of hematuria. He states no fevers, chills, cough, chest pain or difficulty breathing. He states no abdominal pain or back pain. He states no syncope. He states difficulty with urination. He states no dysuria. Related Data Home Medications ?Medication ?Instructions ?Recorded ?Confirmed cholecalciferol (vitamin D3) 25 25 mcg PO DAILY 12/01/22 01/24/24 mcg (1,000 unit) tablet cyanocobalamin (vitamin B-12) 1,000 mcg PO DAILY 12/01/22 01/24/24 1,000 mcg tablet [id number] 300 mcg-K 60 1 tab PO DAILY 12/01/22 01/24/24 mcg-lycop 600 mcg-lutein 300 mcg tablet (Centrum Silver Men) aspirin 81 mg tablet,delayed 81 mg PO DAILY 02/19/23 01/24/24 release (Adult Low Dose Aspirin) Previous Rx's ?Medication ?Instructions ?Recorded rosuvastatin 40 mg tablet 40 mg PO DAILY #100 tabs 07/28/23 zolpidem 10 mg tablet 10 mg PO BEDTIME PRN insomnia #30 09/21/23 tabs clopidogrel 75 mg tablet 75 mg PO DAILY #100 tabs 11/02/23 ropinirole 3 mg tablet 3 mg PO BEDTIME #100 tabs 11/02/23 paroxetine HCl 30 mg tablet 60 mg (2 x 30 mg) PO QAM #180 tabs 01/09/24 amlodipine 5 mg tablet 5 mg PO DAILY #30 tabs 01/11/24 quetiapine 100 mg tablet 100 mg PO BEDTIME #90 tabs 01/11/24 mirtazapine 15 mg tablet 15 mg PO BEDTIME #30 tabs 02/04/24 oxycodone 10 mg tablet 10 mg PO BID PRN pain 15 days #30 02/04/24 tabs Allergies Allergy/AdvReac Type Severity Reaction Status Date / Time zolpidem AdvReac Unknown sleepwalkin Verified 02/09/24 12:49 g Review of Systems 2 Review of Systems: ROS as per HPI [facility] Past Medical History Medical History Coronary artery disease Radiation proctitis Abnormal stress test Unstable angina Chest pain Elevated troponin I level Multiple falls Positive colorectal cancer screening using Cologuard test Anal discharge Depression Anxiety Prostate cancer Restless legs syndrome Epilepsy 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 Degenerative disc disease, cervical Impaired fasting glucose Pure hypercholesterolemia Bilateral carotid artery stenosis Benign essential hypertension Surgical History Hx of colonoscopy History of common carotid artery stent placement H/O radical prostatectomy History of inguinal hernia repair Family History Family History Father Cancer Mother Chronic mental illness Son In good health Daughter In good health Social History Social History Household Members: Children Housing: House Do you presently have visiting nurse or other home services: No Alcohol intake: never Patient Tobacco Use Status: Former Tobacco user Tobacco use type: Cigarette Smoked in Last 30 Days: No e-Cigarette/Vaping Use: Never Used Second Hand Smoke Exposure: No Use of substances other than those prescribed or required for medical reasons: No Substance Use Type: Marijuana Advance Directives: Yes Advance Directives on File: Yes Advance Directives Date on File: 12/08/22 Do you have a plan to hurt others: No Plan service: No Current occupational status: retired Cognitive needs: No Hearing needs: No Vision needs: Yes Physical Exam ED Vital Signs: Vital Signs - 24 hr 02/09/24 12:50 02/09/24 12:56 02/09/24 13:05 Temperature Pulse Rate 125 H 121 H Respiratory Rate 30 H 31 H 28 H Blood Pressure 89/49 L 100/58 L Pulse Oximetry Oxygen Delivery Method BiPAP BiPAP Oxygen Flow Rate 02/09/24 13:34 02/09/24 13:47 02/09/24 13:51 Temperature 97.8 F Pulse Rate 126 H 114 H Respiratory Rate 31 H 32 H 28 H Blood Pressure 60/41 L 100/54 L Pulse Oximetry 98 100 Oxygen Delivery Method BiPAP BiPAP Oxygen Flow Rate 02/09/24 14:56 02/09/24 15:03 02/09/24 15:24 Temperature Pulse Rate 108 H 110 H 108 H Respiratory Rate 24 H 26 H 24 H Blood Pressure 85/46 L 96/51 L 98/50 L Pulse Oximetry 98 98 98 Oxygen Delivery Method Nasal Cannula Nasal Cannula Nasal Cannula Oxygen Flow Rate 4 4 4 02/09/24 15:59 02/09/24 16:15 02/09/24 16:33 Temperature Pulse Rate 111 H 105 H 106 H Respiratory Rate Blood Pressure 93/49 L 79/43 L 95/44 L Pulse Oximetry Oxygen Delivery Method Oxygen Flow Rate 02/09/24 16:37 02/09/24 16:45 02/09/24 16:54 Temperature Pulse Rate 106 H 107 H 108 H Respiratory Rate Blood Pressure 78/41 L 76/45 L 82/48 L Pulse Oximetry Oxygen Delivery Method Oxygen Flow Rate 02/09/24 17:28 02/09/24 17:54 02/09/24 18:29 Temperature Pulse Rate 115 H 112 H 118 H Respiratory Rate 26 H 23 H 28 H Blood Pressure 133/58 L 133/59 L 114/57 L Pulse Oximetry 100 100 99 Oxygen Delivery Method Nasal Cannula Nasal Cannula Nasal Cannula Oxygen Flow Rate 4 4 4 02/09/24 18:48 02/09/24 18:48 02/09/24 19:08 Temperature Pulse Rate 116 H 117 H 107 H Respiratory Rate 26 H Blood Pressure 85/40 L 85/40 L 87/54 L Pulse Oximetry 99 Oxygen Delivery Method Nasal Cannula Oxygen Flow Rate 4 02/09/24 19:12 02/09/24 19:20 Temperature 97.9 F 97.8 F Pulse Rate 110 H 111 H Respiratory Rate 24 H 26 H Blood Pressure 112/60 131/71 Pulse Oximetry Oxygen Delivery Method Oxygen Flow Rate BMI result Body Mass Index 18.5 Gen: Ill-appearing, AOx3 HEENT: NCAT, EOMI, anicteric sclera, dry oral mucosa CV: Tachycardic rate, regular rhythm, no pretibial pitting edema Pulm: Diffuse coarse breath sounds, no wheezes GI: Soft, NTND, no rebound, guarding or rigidity Rectal: Brown stool per rectum (chaperoned by RN) MSK: Moving all extremities spontaneously Neuro: Grossly non focal, symmetrical face, sensation intact to light touch in upper and lower extremities Medications Administered Generic Name Dose Route Start Last Admin Trade Name Freq PRN Reason Stop Dose Admin Dextrose 250 mls @ 750 mls/hr 02/09/24 14:30 02/09/24 16:18 D10 IV Infused Q15M PRN Infusion per Hypoglycemia Standing Ord. Norepinephrine Bitartrate 8 mg in 250 mls @ 0 mls/hr 02/09/24 16:00 02/09/24 19:08 Levophed IVCONT 0.4 mcg/kg/min .Q0M HERMINIO 41.4 mls/hr Titration Protocol Per Protocol Discontinued Medications Generic Name Dose Route Start Last Admin Trade Name Freq PRN Reason Stop Dose Admin Lactated Ringer's 1,000 mls @ 999 mls/hr 02/09/24 12:53 02/09/24 14:03 Lr IV 02/09/24 13:53 Infused .Q1H1M ONE Infusion Piperacillin Sod/Tazobactam 100 mls @ 200 mls/hr 02/09/24 13:18 02/09/24 13:56 Sod 4.5 gm/ Sodium Chloride IV 02/09/24 13:47 Infused ONCE ONE Infusion Lactated Ringer's 1,656 mls @ 1,656 mls/hr 02/09/24 13:46 02/09/24 14:57 Lr 30 ml/kg infuse over 1 hr (1656 ml) 02/09/24 14:45 Infused IV Infusion .Q1H ONE Metronidazole 500 mg in 100 mls @ 100 mls/hr 02/09/24 13:47 02/09/24 15:04 Flagyl IV 02/09/24 14:46 Infused ONCE ONE Infusion Calcium Gluconate 1 gm in 50 mls @ 50 mls/hr 02/09/24 14:30 02/09/24 16:03 Calcium Gluconate IV 02/09/24 15:29 Infused ONCE ONE Infusion Vancomycin HCl 1,250 mg/ 250 mls @ 166.667 mls/hr 02/09/24 15:55 02/09/24 18:20 Sodium Chloride IV 02/09/24 17:24 Infused ONCE ONE Infusion Calcium Gluconate 1 gm in 50 mls @ 50 mls/hr 02/09/24 17:37 02/09/24 18:57 Calcium Gluconate IV 02/09/24 18:36 Infused ONCE ONE Infusion Insulin Human Regular 5 unit 02/09/24 14:31 02/09/24 15:02 Insulin Regular, Human 100 Unit/Ml 10 Ml Vial IVPUSH 02/09/24 14:32 5 unit ONCE ONE Administration Iohexol 85 ml 02/09/24 19:13 02/09/24 19:13 Iohexol 350 Mg/Ml 100 Ml Infus..Btl IV 02/09/24 19:14 85 ml ONCE ONE Administration Lidocaine HCl 10 ml 02/09/24 17:31 02/09/24 17:57 Lidocaine Hcl 2 % Urojet 10 Ml Jel.Pf.Justo TOPICAL 02/09/24 17:32 10 ml ONCE ONE Administration Vancomycin HCl 500 mg 02/09/24 13:47 02/09/24 14:00 Vancomycin Hcl 125 Mg Capsule PO 02/09/24 13:48 500 mg ONCE ONE Administration Procedures Catheter Insertion (Urinary) Date of insertion: 02/09/24 Time of insertion: 18:25 Reason for placing: Yes Reason for placing indwelling catheter: Measure accurate output Bladder scan/ultrasound used before catheterization: Yes Antiseptic solution prep: Povidone-Iodine Topical anesthesia used: Yes Catheter type/location: 2-way Urethral Size (Turkish): 16 Catheter balloon size (mL): 10 Catheter balloon amount: 10 Results: successfully catheterized-immediate flow and consulted Procedure performed: without complications Comment: Sesay catheter placed with sureglide using Seldinger technique Central Line Placement Right IJ: Time Out Performed: Yes Patient Placed on Monitor/Pulse Ox: Yes MD Prep: mask, gown and gloves Central Line Prep: Chlorhexidine scrub Local Anesthetic: lidocaine 1% Amount of anesthesia used (mL): 2.5 Ultrasound Used for Placement: Yes Central Line Lumen Inserted: triple Post Procedure: sutured in place, good blood return, all ports aspirated, flushed, capped and sterile dressing applied Post Procedure X-Ray: tip of catheter in good position and no pneumothorax seen Patient Tolerated Procedure: no complications Complications: none EJ/Peripheral Line Arm L: Skin Cleansed in Sterile Fashion: Yes Size (gauge): 20 IV Secured and Dressing Applied: Yes Patient Tolerated Procedure: well and no complications Medical Decision Making Medical Decision Making MDM Narrative: Differential diagnosis includes, but is not limited to sepsis, acute kidney injury, fulminant colitis, C difficile infection, pyelonephritis, intra- abdominal abscess, perinephric emesis. 1251 - on arrival, patient is ill-appearing. Patient is continue with noninvasive mechanical ventilation, which was initiated pre-hospital. Patient is a difficult IV access and I was able to obtain a 20 gauge peripheral IV to the left upper extremity that is to sound guided. Sepsis labs are obtained and sepsis treatment is initiated. Patient is provided broad-spectrum antibiotics vancomycin and Zosyn given recent admission and IV antibiotics within the last 90 days. EKGs with significant baseline artifact, but no apparent ischemic changes. Patient states no chest pain. Patient states that he was feeling somewhat short of breath overnight and this morning, but states that this is improving with the use of BiPAP. I reviewed the medical record, which demonstrates no patient does not have any history of congestive heart failure or use of diuretic therapy. 1352 - Patient is afebrile and has labile blood pressures initially on BiPAP with settings of 12/5 FiO2 60%. Currently maintaining map greater than 65 mm Hg. Patient is receiving a 30 cc/kilos IV fluid bolus with lactated Ringer's given concern for sepsis. I considered arterial blood gas given difficulty obtaining SpO2 suspected due to cool extremities. However, SpO2 is obtained on FiO2 of 60% with an SpO2 of 100%. FiO2 was quickly titrated down to 40% and the patient maintains excellent SpO2 of 100%. We will continue to monitor oxygenation needs. Additional history is obtained and the patient reveals that he has been having ongoing diarrhea for some time now. He reports associated red bloody stools. He states no melena. Stool occult blood is obtained and is negative. Stools grossly brown on exam. Given recent admission with IV antibiotic use with initial white blood cell count of 30.3 and severe metabolic acidosis I am concerned for Clostridium difficile infection and fulminant colitis. We will treat empirically while awaiting stool studies. The patient is additionally provided oral vancomycin and parental metronidazole. Further, patient appears to have hematuria on exam, we will request bedside bladder scan given the patient's recent history of obstructive uropathy secondary to radiation cystitis requiring clot evacuation by Urology. Low threshold for Sesay catheterization. Awaiting chest x-ray given patient's history of cough with sputum production. Will obtain CT imaging for evaluation of a colitis versus other intra-abdominal pathology. 1425 - I independently reviewed and interpreted patient's labs. CBC is notable for leukocytosis with white blood cell count of 30.3 and 24% band neutrophils, stable chronic anemia with hemoglobin of 8.5 (previous hemoglobin 9.2), evaluation studies unremarkable, if his blood gas with metabolic acidosis pH 7.08, pCO2 29, HC03 9. Metabolic panel with hyperkalemia with a potassium of 5.8 (there are no hyperkalemic electrocardiographic changes; regardless we will treat empirically with calcium, glucose and insulin), there is anion gap of 26, which is likely multifactorial secondary to lactic acidosis (9.7), uremia (BUN 77) [will add beta hydroxybutyrate for evaluation of starvation ketosis as contributory to this anion gap), creatinine 5.29 (previous 0.13 consistent with acute kidney injury), AST 49 and alkaline phosphatase 156 (which may be secondary to shock liver in the setting of labile pressure and intermittent hypotension). COVID 19, influenza and RSV are negative. 1426 - patient is updated on results and continue plan of management. Patient has been consented for a central venous catheter given critical this and single IV access at this time. We will have RN attempt to obtain additional IV access at this point given the patient has received fluid bolus. Patient has been weaned off noninvasive mechanical ventilation to nasal cannula with excellent oxygenation. He does not appear in any respiratory distress and lungs are clear to ausculation and chest x-ray is unremarkable on my interpretation and radiology impression as below. Suspect that EMS initial SpO2 of 77% on room air was most likely secondary to poor peripheral perfusion/cool extremities. 1544 - patient has completed 30 cc/kilos IV fluid bolus as per sepsis protocol. He remains hypotensive with map less than 65 mm Hg. Central line is established of the right internal jugular vein. We will obtain a postprocedure chest x-ray. We will initiate Levophed GTT. We will target map greater than 75 mm Hg to ensure renal perfusion given evidence of acute kidney injury. We will obtain repeat blood work including CBC, CMP, lactic acid and venous blood gas at this time. Nephrology has been consulted and discussed the case and management with Lyndsey GARCÍA who is at the bedside evaluating the patient at this time. Bedside bladder scan demonstrates no urinary retention. We will establish Sesay catheter given critical illness and acute kidney injury the to monitor urinary output. Beta hydroxybutyrate reassuring at 0.08. 1607 - as below, I discussed with consult ICU, but there are no ICU beds available. I have consulted [facility] regarding transfer for continued ICU care and unfortunately am declined transfer due to capacity. 1712 - I have discussed patient's case and management with Dr. Sly Andrade and Dr. Trent Chan (Nephrology). We have considered risks and benefits of IV contrast administration, but given broad differential in his undifferentiated critically ill patient is currently on increasing vasopressor requirements (currently 0.3 micrograms/kilogram per minute) we have elected to obtain CT imaging with IV contrast as findings better evaluated for with contrast such as abscess would change management analyst and required specialist. Repeat hemoglobin 7.0. Will tranfuse 1U pRBC given concern for acute blood loss anemia with history of hematuria and evident hematuria on exam. RN unable to establish Sesay catheter initially and will re-attempt with Sesay catheter. Repeat venous blood gas with resolution of acid-base disturbance with pH 7.32, pCO2 26 NaHCO3 13. Anion gap improving to 16 from 26. Lactic acid improving to 3.5 from 9.7. Creatinine improving to 4.64 from 5.29. Hyperkalemia resolved with potassium now 4.5. 1826 - patient remains in critical condition on vasopressors. He is awake, alert answering questions appropriately. He has been consented for transfusion of 1 unit of blood. Given ongoing difficulties with Sesay catheter placement by bedside RN and multiple attempts. Sesay catheter placements with attempted initially failed with 14 Turkish silicone Sesay catheter after discussing the patient's case and management with consulted urologist, Dr. Evangelista who recommended a 12 Turkish silicone cather, but we were unable to obtain this in the ED. I further discussed patient's case with Dr. Evangelista and he recommended utilizing sure glide and on repeat Sesay catheter placement utilizing sure glide a 16 Turkish Sesay catheter is placed without difficulty or complication. 1834 - I received a return call from [facility] and patient has been accepted to the ICU under care of Dr. Aleks Covarrubias for direct admission to the [facility] in [place], [place]. c Repeat lactic acid improved to 2.5. Urinalysis is notable for brown colored urine, turbid appearance, 3-5 RBCs 11-20 WBC, 3-5 squamous epithelial cells and 4+ bacteria. CT imaging is obtained prior to transfer with Radiology impression pending at time of transfer. I have requested receptionist secretary upload CT imaging to receiving Hospital cloud and provide disc to be taken with patient during transfer. Stool studies pending at time of transfer as well. Patient is provided additional dose of po vanocmycin given ongoing hemodynamic instability while awaiting stool studies. Will also provide 2nd dose of Zosyn here in the ED given septic shock on vasopressors. Critical Care Time: A total of 120 minutes spent in direct patient care with coordinating critical resuscitation, procedures, reviewing records, discussing with consultants, reviewing labs, and/or managing patient. Admission/Observation Consideration of admission/observation: Escalation of care including admission/observation considered Consult Healthcare Provider Management of the patient was discussed with: Staff Research Associate I discussed case with ICU and am notified we do not have any ICU beds at this time. Given nature of patient's critical illness on vasopressors, patient will need transfer for appropriate level of care. I discussed patient's case with senior analytic consultant senior informatica developer as above. Lab Data MDM Lab Attestation statement: I reviewed the patient's lab results. 02/09/24 16:37 02/09/24 15:38 Labs: Lab Results 02/09/24 02/09/24 02/09/24 Range/Units 13:16 13:18 13:26 WBC 30.3 H* (4.8-10.8) X10*3/uL RBC 3.09 L (4.60-5.80) X10*6/uL Hgb 8.5 L (14.0-18.0) g/dl Hct 27.2 L (42.0-52.0) % MCV 88.0 (80.0-98.0) fL MCH 27.5 (27.0-33.0) pg MCHC 31.3 (31.0-36.0) g/dl RDW 16.9 H (11.0-16.0) % Plt Count 265 (160-400) X10*3/uL MPV 9.9 (9.4-12.4) fL Immature Gran % (Auto) Cancelled Neut % (Auto) Cancelled Lymph % (Auto) Cancelled Simpson % (Auto) Cancelled Eos % (Auto) Cancelled Baso % (Auto) Cancelled Lymph # (Auto) Cancelled Simpson # (Auto) Cancelled Eos # (Auto) Cancelled Baso # (Auto) Cancelled Abs Immat Gran (auto) Cancelled Absolute Neuts (auto) Cancelled Absolute Nucleated RBC 0.000 (0.0-0.012) X10*3/uL Nucleated RBC % (auto) 0.0 (0.0-0.2) /100WBC Neutrophils % (Manual) 69 (45-73) % Band Neutrophils % 24 H (3-5) % Lymphocytes % (Manual) 2 L (20-40) % Monocytes % (Manual) 2 (2-11) % Eosinophils % (Manual) 1 (0-4) % Metamyelocytes % 1 % Myelocytes % 1 % Abs Neuts (Manual) 28.2 H (2.0-8.3) X10*3/uL Lymphocytes # (Manual) 0.6 L (1.2-4.9) X10*3/uL Monocytes # (Manual) 0.6 (0.1-1.2) X10*3/uL Eosinophils # (Manual) 0.3 (0.0-0.4) X10*3/uL Metamyelocytes # 0.3 X10*3/uL Myelocytes # 0.3 X10*/uL Toxic Vacuolation Dohle Bodies PRESENT Platelet Estimate NORMAL (NORMAL) Plt Morphology Comment NORMAL RBC Morphology NOTED Ovalocytes /OIF Ivette Cells 3+ (>5) /OIF Acanthocytes (Spur) 1+ (0-2) /OIF Schistocytes 1+ (0-2) /OIF PT 11.5 (10.9-12.4) SEC INR 1.0 (0.9-1.1) APTT 31.6 (26.0-36.8) SEC VBG pH 7.08 L* (7.32-7.43) VBG pCO2 29 mmHg VBG pO2 47 mmHg VBG HCO3 9 L (22-26) mmol/L VBG O2 Saturation 53.0 % VBG Base Excess -19.3 mmol/L Sodium 135 (135-145) mmol/L Potassium 5.8 H D (3.3-5.1) mmol/L Chloride 105 (96-108) mmol/L Carbon Dioxide 10 L* D (22-29) mmol/L Anion Gap 26 H (12-20) BUN 77 H (9-16) mg/dL Creatinine 5.29 H* (0.5-1.4) mg/dL Estim Creat Clear Calc 9.7 Estimated GFR 11 POC Glucose (60-115) mg/dL Random Glucose 112 (60-115) mg/dL Lactic Acid 9.7 H* (0.5-2.0) mmol/L Lactic Acid F/U @ 2Hr (0.5-2.0) mmol/L Lactic Acid F/U @ 4Hr (0.5-2.0) mmol/L Calcium 8.8 D (8.4-10.2) mg/dL Total Bilirubin 0.5 (0.0-1.0) mg/dL Direct Bilirubin 0.3 (0.0-0.5) mg/dL AST 49 H (5-37) U/L ALT 22 (0-40) U/L Alkaline Phosphatase 156 H (39-117) U/L Troponin I High Sens 4.9 (<3.5-35.0) ng/L B-Natriuretic Peptide 86 (<100) pg/mL Total Protein 6.2 L (6.5-8.0) g/dL Albumin 3.2 L (3.5-5.0) g/dL Lipase 7 L (8-78) U/L Beta-Hydroxybutyrate 0.08 (0.02-0.27) mmol/L Urine Color Urine Appearance Urine pH (5.0-9.0) Ur Specific [place] (1.005-1.025) Urine Protein (Neg-Trace) mg/dL Urine Glucose (UA) (Negative) mg/dL Urine Ketones (Negative) mg/dL Urine Blood (Negative) Urine Nitrite (Negative) Ur Leukocyte Esterase (Negative) Urine RBC (0-2) /HPF Urine WBC (0-5) /HPF Ur Squamous Epith Cells (0-2) /HPF Urine Bacteria (None Seen) Hyaline Casts (0-2) /LPF Stool Occult Blood (NEGATIVE) Influenza Type A (PCR) NEGATIVE (Negative) Influenza Type B (PCR) NEGATIVE (Negative) RSV RNA Qual (PCR) NEGATIVE (Negative) SARS-CoV-2 RNA (RT-PCR) NEGATIVE (Negative) Blood Type B Positive Antibody Screen NEGATIVE Crossmatch See Detail 02/09/24 02/09/24 02/09/24 Range/Units 13:40 15:15 15:38 WBC (4.8-10.8) X10*3/uL RBC (4.60-5.80) X10*6/uL Hgb (14.0-18.0) g/dl Hct (42.0-52.0) % MCV (80.0-98.0) fL MCH (27.0-33.0) pg MCHC (31.0-36.0) g/dl RDW (11.0-16.0) % Plt Count (160-400) X10*3/uL MPV (9.4-12.4) fL Immature Gran % (Auto) Neut % (Auto) Lymph % (Auto) Simpson % (Auto) Eos % (Auto) Baso % (Auto) Lymph # (Auto) Simpson # (Auto) Eos # (Auto) Baso # (Auto) Abs Immat Gran (auto) Absolute Neuts (auto) Absolute Nucleated RBC (0.0-0.012) X10*3/uL Nucleated RBC % (auto) (0.0-0.2) /100WBC Neutrophils % (Manual) (45-73) % Band Neutrophils % (3-5) % Lymphocytes % (Manual) (20-40) % Monocytes % (Manual) (2-11) % Eosinophils % (Manual) (0-4) % Metamyelocytes % % Myelocytes % % Abs Neuts (Manual) (2.0-8.3) X10*3/uL Lymphocytes # (Manual) (1.2-4.9) X10*3/uL Monocytes # (Manual) (0.1-1.2) X10*3/uL Eosinophils # (Manual) (0.0-0.4) X10*3/uL Metamyelocytes # X10*3/uL Myelocytes # X10*/uL Toxic Vacuolation Dohle Bodies Platelet Estimate (NORMAL) Plt Morphology Comment RBC Morphology Ovalocytes /OIF [place] Cells /OIF Acanthocytes (Spur) /OIF Schistocytes /OIF PT (10.9-12.4) SEC INR (0.9-1.1) APTT (26.0-36.8) SEC VBG pH (7.32-7.43) VBG pCO2 mmHg VBG pO2 mmHg VBG HCO3 (22-26) mmol/L VBG O2 Saturation % VBG Base Excess mmol/L Sodium 131 L (135-145) mmol/L Potassium 4.5 D (3.3-5.1) mmol/L Chloride 104 (96-108) mmol/L Carbon Dioxide 16 L (22-29) mmol/L Anion Gap 16 (12-20) BUN 74 H (9-16) mg/dL Creatinine 4.64 H* (0.5-1.4) mg/dL Estim Creat Clear Calc 11.0 Estimated GFR 12 POC Glucose 69 (60-115) mg/dL Random Glucose 214 H (60-115) mg/dL Lactic Acid (0.5-2.0) mmol/L Lactic Acid F/U @ 2Hr 3.5 H* (0.5-2.0) mmol/L Lactic Acid F/U @ 4Hr (0.5-2.0) mmol/L Calcium 7.8 L D (8.4-10.2) mg/dL Total Bilirubin 0.5 (0.0-1.0) mg/dL Direct Bilirubin (0.0-0.5) mg/dL AST 56 H (5-37) U/L ALT 25 (0-40) U/L Alkaline Phosphatase 113 (39-117) U/L Troponin I High Sens (<3.5-35.0) ng/L B-Natriuretic Peptide (<100) pg/mL Total Protein 4.6 L (6.5-8.0) g/dL Albumin 2.3 L (3.5-5.0) g/dL Lipase (8-78) U/L Beta-Hydroxybutyrate (0.02-0.27) mmol/L Urine Color Urine Appearance Urine pH (5.0-9.0) Ur Specific [place] (1.005-1.025) Urine Protein (Neg-Trace) mg/dL Urine Glucose (UA) (Negative) mg/dL Urine Ketones (Negative) mg/dL Urine Blood (Negative) Urine Nitrite (Negative) Ur Leukocyte Esterase (Negative) Urine RBC (0-2) /HPF Urine WBC (0-5) /HPF Ur Squamous Epith Cells (0-2) /HPF Urine Bacteria (None Seen) Hyaline Casts (0-2) /LPF Stool Occult Blood NEGATIVE (NEGATIVE) Influenza Type A (PCR) (Negative) Influenza Type B (PCR) (Negative) RSV RNA Qual (PCR) (Negative) SARS-CoV-2 RNA (RT-PCR) (Negative) Blood Type Antibody Screen Crossmatch 02/09/24 02/09/24 02/09/24 Range/Units 15:52 16:01 16:37 WBC 19.6 H (4.8-10.8) X10*3/uL RBC 2.49 L (4.60-5.80) X10*6/uL Hgb 7.0 L* (14.0-18.0) g/dl Hct 21.5 L D (42.0-52.0) % MCV 86.3 (80.0-98.0) fL MCH 28.1 (27.0-33.0) pg MCHC 32.6 (31.0-36.0) g/dl RDW 17.0 H (11.0-16.0) % Plt Count 172 D (160-400) X10*3/uL MPV 9.7 (9.4-12.4) fL Immature Gran % (Auto) Cancelled Neut % (Auto) Cancelled Lymph % (Auto) Cancelled Simpson % (Auto) Cancelled Eos % (Auto) Cancelled Baso % (Auto) Cancelled Lymph # (Auto) Cancelled Simpson # (Auto) Cancelled Eos # (Auto) Cancelled Baso # (Auto) Cancelled Abs Immat Gran (auto) Cancelled Absolute Neuts (auto) Cancelled Absolute Nucleated RBC 0.000 (0.0-0.012) X10*3/uL Nucleated RBC % (auto) 0.0 (0.0-0.2) /100WBC Neutrophils % (Manual) 83 H (45-73) % Band Neutrophils % 10 H (3-5) % Lymphocytes % (Manual) 3 L (20-40) % Monocytes % (Manual) 2 (2-11) % Eosinophils % (Manual) (0-4) % Metamyelocytes % 2 % Myelocytes % % Abs Neuts (Manual) 18.2 H (2.0-8.3) X10*3/uL Lymphocytes # (Manual) 0.6 L (1.2-4.9) X10*3/uL Monocytes # (Manual) 0.4 (0.1-1.2) X10*3/uL Eosinophils # (Manual) (0.0-0.4) X10*3/uL Metamyelocytes # 0.4 X10*3/uL Myelocytes # X10*/uL Toxic Vacuolation PRESENT Dohle Bodies Platelet Estimate NORMAL (NORMAL) Plt Morphology Comment NORMAL RBC Morphology NOTED Ovalocytes 1+ (5-14) /OIF Ivette Cells 3+ (>5) /OIF Acanthocytes (Spur) /OIF Schistocytes /OIF PT (10.9-12.4) SEC INR (0.9-1.1) APTT (26.0-36.8) SEC VBG pH 7.32 (7.32-7.43) VBG pCO2 26 mmHg VBG pO2 76 mmHg VBG HCO3 13 L (22-26) mmol/L VBG O2 Saturation 93.0 % VBG Base Excess -10.8 mmol/L Sodium (135-145) mmol/L Potassium (3.3-5.1) mmol/L Chloride (96-108) mmol/L Carbon Dioxide (22-29) mmol/L Anion Gap (12-20) BUN (9-16) mg/dL Creatinine (0.5-1.4) mg/dL Estim Creat Clear Calc Estimated GFR POC Glucose 116 H (60-115) mg/dL Random Glucose (60-115) mg/dL Lactic Acid (0.5-2.0) mmol/L Lactic Acid F/U @ 2Hr (0.5-2.0) mmol/L Lactic Acid F/U @ 4Hr (0.5-2.0) mmol/L Calcium (8.4-10.2) mg/dL Total Bilirubin (0.0-1.0) mg/dL Direct Bilirubin (0.0-0.5) mg/dL AST (5-37) U/L ALT (0-40) U/L Alkaline Phosphatase (39-117) U/L Troponin I High Sens (<3.5-35.0) ng/L B-Natriuretic Peptide (<100) pg/mL Total Protein (6.5-8.0) g/dL Albumin (3.5-5.0) g/dL Lipase (8-78) U/L Beta-Hydroxybutyrate (0.02-0.27) mmol/L Urine Color Urine Appearance Urine pH (5.0-9.0) Ur Specific [place] (1.005-1.025) Urine Protein (Neg-Trace) mg/dL Urine Glucose (UA) (Negative) mg/dL Urine Ketones (Negative) mg/dL Urine Blood (Negative) Urine Nitrite (Negative) Ur Leukocyte Esterase (Negative) Urine RBC (0-2) /HPF Urine WBC (0-5) /HPF Ur Squamous Epith Cells (0-2) /HPF Urine Bacteria (None Seen) Hyaline Casts (0-2) /LPF Stool Occult Blood (NEGATIVE) Influenza Type A (PCR) (Negative) Influenza Type B (PCR) (Negative) RSV RNA Qual (PCR) (Negative) SARS-CoV-2 RNA (RT-PCR) (Negative) Blood Type Antibody Screen Crossmatch 02/09/24 02/09/24 Range/Units 17:42 18:31 WBC (4.8-10.8) X10*3/uL RBC (4.60-5.80) X10*6/uL Hgb (14.0-18.0) g/dl Hct (42.0-52.0) % MCV (80.0-98.0) fL MCH (27.0-33.0) pg MCHC (31.0-36.0) g/dl RDW (11.0-16.0) % Plt Count (160-400) X10*3/uL MPV (9.4-12.4) fL Immature Gran % (Auto) Neut % (Auto) Lymph % (Auto) Simpson % (Auto) Eos % (Auto) Baso % (Auto) Lymph # (Auto) Simpson # (Auto) Eos # (Auto) Baso # (Auto) Abs Immat Gran (auto) Absolute Neuts (auto) Absolute Nucleated RBC (0.0-0.012) X10*3/uL Nucleated RBC % (auto) (0.0-0.2) /100WBC Neutrophils % (Manual) (45-73) % Band Neutrophils % (3-5) % Lymphocytes % (Manual) (20-40) % Monocytes % (Manual) (2-11) % Eosinophils % (Manual) (0-4) % Metamyelocytes % % Myelocytes % % Abs Neuts (Manual) (2.0-8.3) X10*3/uL Lymphocytes # (Manual) (1.2-4.9) X10*3/uL Monocytes # (Manual) (0.1-1.2) X10*3/uL Eosinophils # (Manual) (0.0-0.4) X10*3/uL Metamyelocytes # X10*3/uL Myelocytes # X10*/uL Toxic Vacuolation Dohle Bodies Platelet Estimate (NORMAL) Plt Morphology Comment RBC Morphology Ovalocytes /OIF [place] Cells /OIF Acanthocytes (Spur) /OIF Schistocytes /OIF PT (10.9-12.4) SEC INR (0.9-1.1) APTT (26.0-36.8) SEC VBG pH (7.32-7.43) VBG pCO2 mmHg VBG pO2 mmHg VBG HCO3 (22-26) mmol/L VBG O2 Saturation % VBG Base Excess mmol/L Sodium (135-145) mmol/L Potassium (3.3-5.1) mmol/L Chloride (96-108) mmol/L Carbon Dioxide (22-29) mmol/L Anion Gap (12-20) BUN (9-16) mg/dL Creatinine (0.5-1.4) mg/dL Estim Creat Clear Calc Estimated GFR POC Glucose 106 (60-115) mg/dL Random Glucose (60-115) mg/dL Lactic Acid (0.5-2.0) mmol/L Lactic Acid F/U @ 2Hr (0.5-2.0) mmol/L Lactic Acid F/U @ 4Hr 2.5 H* (0.5-2.0) mmol/L Calcium (8.4-10.2) mg/dL Total Bilirubin (0.0-1.0) mg/dL Direct Bilirubin (0.0-0.5) mg/dL AST (5-37) U/L ALT (0-40) U/L Alkaline Phosphatase (39-117) U/L Troponin I High Sens (<3.5-35.0) ng/L B-Natriuretic Peptide (<100) pg/mL Total Protein (6.5-8.0) g/dL Albumin (3.5-5.0) g/dL Lipase (8-78) U/L Beta-Hydroxybutyrate (0.02-0.27) mmol/L Urine Color BROWN Urine Appearance Turbid Urine pH 8.5 (5.0-9.0) Ur Specific [place] 1.020 (1.005-1.025) Urine Protein See Note (Neg-Trace) mg/dL Urine Glucose (UA) Negative (Negative) mg/dL Urine Ketones See Note (Negative) mg/dL Urine Blood See Note (Negative) Urine Nitrite See Note (Negative) Ur Leukocyte Esterase See Note (Negative) Urine RBC 3-5 H (0-2) /HPF Urine WBC 11-20 H (0-5) /HPF Ur Squamous Epith Cells 3-5 (0-2) /HPF Urine Bacteria 4+ (None Seen) Hyaline Casts 0-2 (0-2) /LPF Stool Occult Blood (NEGATIVE) Influenza Type A (PCR) (Negative) Influenza Type B (PCR) (Negative) RSV RNA Qual (PCR) (Negative) SARS-CoV-2 RNA (RT-PCR) (Negative) Blood Type Antibody Screen Crossmatch ABG Data Attestation ABG: I personally reviewed and interpreted this ABG as follows: Independent Interpretation I performed an independent interpretation of an: EKG and Plain X-Ray Interpretation: I independently reviewed and interpreted the patient's EKG, which demonstrates significant baseline artifact apparent sinus tachycardia at 119, narrow complex QRS no appreciable ST/T-wave changes or STEMI, no peaked T-waves Radiology Impression Discussion of test interpretation with radiology: I have reviewed the radiologist's reading. Radiologist Impression: XR/XR chest 1V IMPRESSION: No acute abnormality of chest. Electronically signed by: Terrell Thomas MD 02/09/2024 03:30 PM EDT Dictated By: Terrell Thomas MD Signed By: <Electronically signed by Terrell Thomas MD in OV> 02/09/24 1530 Independent Historian Clinical information obtained from an independent historian. History obtained from or confirmed by: EMS Discharge Plan Discharge Clinical Impression: Septic shock, Acute anemia, Acute kidney injury, Acute hyperkalemia, Leukocytosis, Bandemia, Metabolic acidosis, Acidosis, lactic, Diarrhea Patient Disposition: [facility] Transfer Details: Patient transferred to [facility] to ICU under care of Dr. Aleks Covarrubias Prescriptions: No Action rosuvastatin 40 mg tablet 40 mg PO DAILY Qty: 100 2RF zolpidem 10 mg tablet 10 mg PO BEDTIME PRN (Reason: insomnia) Qty: 30 1RF ropinirole 3 mg tablet 3 mg PO BEDTIME Qty: 100 2RF clopidogrel 75 mg tablet 75 mg PO DAILY Qty: 100 2RF paroxetine HCl 30 mg tablet 60 mg PO QAM Qty: 180 3RF quetiapine 100 mg tablet 100 mg PO BEDTIME Qty: 90 3RF amlodipine 5 mg tablet 5 mg PO DAILY Qty: 30 0RF Protocol: Hold for SBP< HOLD for SBP < : 90 mirtazapine 15 mg tablet 15 mg PO BEDTIME Qty: 30 3RF oxycodone 10 mg tablet 10 mg PO BID PRN (Reason: pain) 15 Days Qty: 30 0RF cyanocobalamin (vitamin B-12) 1,000 mcg Tablet 1,000 mcg PO DAILY cholecalciferol (vitamin D3) 25 mcg (1,000 unit) Tablet 25 mcg PO DAILY Centrum Silver Men [id number] mcg Tablet 1 tab PO DAILY aspirin [Adult Low Dose Aspirin] 81 mg tablet,delayed release (DR/EC) 81 mg PO DAILY Print Language: Latvian
[2024-02-09] MEDS: Lactated Ringers 1,000 ML 999 ML IV (13:23)
[2024-02-09] MEDS: Piperacillin Sodium/Tazobactam 4.5 GM in 0.9 % Sodium Chloride 100 ML IV ×2 (13:26→19:38)
[2024-02-09 13:33] LABS: Hematocrit 27.2 % (42.0-52.0); Hemoglobin 8.5 g/dl (14.0-18.0); Mean Corpuscular HGB Conc 31.3 g/dl (31.0-36.0); Mean Corpuscular Hemoglobin 27.5 pg (27.0-33.0); Mean Platelet Volume 9.9 fL (9.4-12.4); Platelet Count 265 X10*3/uL (160-400); Red Blood Count 3.09 X10*6/uL (4.60-5.80); Red Cell Distribution Width 16.9 % (11.0-16.0)
[2024-02-09 13:34] LABS: VBG Base Excess -19.3 mmol/L; VBG HCO3 9 mmol/L (22-26); VBG pCO2 29 mmHg; VBG pH 7.08 (7.32-7.43); VBG pO2 47 mmHg
[2024-02-09 13:35] LABS: Venous Blood Gas Refer to POC result
[2024-02-09 13:39] LABS: WBC ABN SCTR FOR CBC 1
[2024-02-09 13:40] LABS: Prothrombin Time 11.5 SEC (10.9-12.4); White Blood Count 30.3 X10*3/uL (4.8-10.8)
[2024-02-09 13:43] LABS: Partial Thromboplastin Time 31.6 SEC (26.0-36.8)
--- NOTE | 2024-02-09 13:44 | PC.NURSE ---
pt noted to be hypotensive - LR placed on pressure bag at this time. pt currently remains sinus tachy on the school lunch monitor - HR between 1150-130bpm. pt denies chest pain/palpitations. pt remains on bipap @ this time - 03/30 @ 60%.
[2024-02-09 13:46] LABS: OBS Int Ctl Valid YES; OBS1 NEGATIVE (NEGATIVE)
[2024-02-09] MEDS: LACTATED RINGERS 1656 ML IV (13:56)
[2024-02-09] MEDS: vancomycin HCL 125 MG CAPSULE 500 MG PO ×2 (14:00→19:38)
[2024-02-09] MEDS: metroNIDAZOLE/NS 500 MG/100 ML PIGGYBACK 100 MG IV (14:00)
[2024-02-09 14:02] LABS: Neutrophils Percent Manual 69 % (45-73)
[2024-02-09 14:03] LABS: B Type Natriuretic Peptide 86 pg/mL (<100)
[2024-02-09 14:07] LABS: Troponin-I High Sensitivity 4.9 ng/L (<3.5-35.0)
[2024-02-09 14:08] LABS: Band Neutrophils Percent 24 % (3-5); Eosinophils Absolute Manual 0.3 X10*3/uL (0.0-0.4); Eosinophils Percent Manual 1 % (0-4); Lymphocytes Absolute Manual 0.6 X10*3/uL (1.2-4.9); Lymphocytes Percent Manual 2 % (20-40); Metamyelocytes Absolute 0.3 X10*3/uL; Metamyelocytes Percent 1 %; Monocytes Absolute Manual 0.6 X10*3/uL (0.1-1.2); Monocytes Percent Manual 2 % (2-11); Myelocytes Absolute 0.3 X10*/uL; Myelocytes Percent 1 %; Neutrophils Absolute Manual 28.2 X10*3/uL (2.0-8.3)
[2024-02-09 14:09] LABS: Acanthocytes 1+ (0-2) /OIF; Burr Cells 3+ (>5) /OIF; Dohle Bodies PRESENT; Platelet Estimate NORMAL (NORMAL); Platelet Morphology Comment NORMAL; RBC Morphology NOTED; Schistocytes 1+ (0-2) /OIF
[2024-02-09 14:10] LABS: Influenza A PCR NEGATIVE (Negative); Influenza B PCR NEGATIVE (Negative); Resp Syncy Virus RNA Qual PCR NEGATIVE (Negative); SARS COV2 PCR INHOUSE NEGATIVE (Negative)
[2024-02-09 14:20] LABS: Alanine Aminotransferase 22 U/L (0-40); Albumin Level 3.2 g/dL (3.5-5.0); Alkaline Phosphatase 156 U/L (39-117); Anion Gap 26 (12-20); Aspartate Amino Transferase 49 U/L (5-37); Bilirubin Direct 0.3 mg/dL (0.0-0.5); Bilirubin Total 0.5 mg/dL (0.0-1.0); Blood Urea Nitrogen 77 mg/dL (9-16); Calcium 8.8 mg/dL (8.4-10.2); Carbon Dioxide 10 mmol/L (22-29); Chloride 105 mmol/L (96-108); Creatinine Clr Calc Pharmacy 9.7; Estimated Glomerular Filt Rate 11; Glucose Random 112 mg/dL (60-115); Lactic Acid 9.7 mmol/L (0.5-2.0); Potassium 5.8 mmol/L (3.3-5.1); Sodium 135 mmol/L (135-145); Total Protein 6.2 g/dL (6.5-8.0)
--- NOTE | 2024-02-09 14:56 | PC.NURSE ---
pt taken off bipap at this time - placed on 4L via NC. pt resting comfortably in no apparent distress. no sob/wob noted. respirations even/unlabored. plan of care ongoing.
[2024-02-09] MEDS: Insulin Regular, Human 100 UNIT/ML 10 ML VIAL IVPUSH (15:02)
[2024-02-09] MEDS: Calcium Gluconate/NaCl,Iso-Osm 1 GM/50 ML PLAST..BAG IV ×2 (15:03→17:57)
--- NOTE | 2024-02-09 15:15 | PC.NURSE ---
bladder scan performed displaying 0ml. provider notified/aware.
[2024-02-09] MEDS: Dextrose 10 % 250 ML 750 ML IV (15:22)
--- NOTE | 2024-02-09 15:22 | PC.NURSE ---
pt noted to be hypoglycemic - dextrose infusing per provider order at this time. effectiveness pending.
[2024-02-09 15:26] LABS: Reflex Lactate? Lactic Acid Added
[2024-02-09 15:38] LABS: Beta-Hydroxybutyrate 0.08 mmol/L (0.02-0.27)
--- NOTE | 2024-02-09 15:42 | PC.NURSE ---
central line placed in pt's right side of his neck by MD Nam. IJ patent/intact. pt remains sinus tachy/hypotensive at this time. pt remains on 4L via NC. no sob/wob noted. respirations even/unlabored. plan of care ongoing.
[2024-02-09 15:55] LABS: VBG Base Excess -10.8 mmol/L; VBG HCO3 13 mmol/L (22-26); VBG pCO2 26 mmHg; VBG pH 7.32 (7.32-7.43); VBG pO2 76 mmHg
--- NOTE | 2024-02-09 15:55 | PM.CNNEP ---
History of Present Illness Reason for Consult Consult date: 02/09/24 Chief Complaint Chief complaint: SOB X2D,77% RA,BIPAP @ THIS TIME PER EMS History of Present Illness Narrative: pt is a 74 y/o male with a medical history of prostate CA, had recent admission for obstructive uropathy secondary to clots from hematuria from radiation cystitis. 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 ED today for general weakness, diarrhea, hypoxia (though O2 being titrated down, chest xray unremarkable). Significant lactic acidosis, WBC elevation, low blood pressures requiring vasopressor support on arrival 02/08 pt has creatinine of 5.29 (last cr on 12/29 was 1.13), BUN is 77, potassium 5.8 recent bedside bladder scan did not reveal any urinary retention, epps being placed pt is alert to voice, answers questions appropriately reports breathing is ok on NC currently lying flat reports he recently urinated on his own, reports passed some blood clots otherwise no urinary symptoms- denies pain, difficulty urinating, flank pain denies other pain, complaints denies alcohol use, smoking, NSAID use denies other changes to his medications, routine prior to admission Review of Systems Constitutional: Reports fatigue, Denies fever(s), Reports lethargy, Reports malaise and Reports weakness Cardiovascular: Denies no additional cardiovascular complaints, Denies chest pain and Reports dyspnea Respiratory: Reports no additional respiratory complaints and Reports dyspnea Gastrointestinal: Denies abdominal pain and Reports diarrhea Genitourinary: Reports hematuria (reports recently passed clots in urine with last void), Denies difficulty urinating, Denies dysuria and Denies flank pain Musculoskeletal: Denies tingling Skin/Breast: Denies rash Denies focal weakness, Denies tingling, Denies tremor(s) and Reports weakness Endocrine: Reports fatigue PMFSH Past Medical History Medical History Coronary artery disease Radiation proctitis Abnormal stress test Unstable angina Chest pain Elevated troponin I level Multiple falls Positive colorectal cancer screening using Cologuard test Anal discharge Depression Anxiety Prostate cancer Restless legs syndrome Epilepsy 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 Degenerative disc disease, cervical Impaired fasting glucose Pure hypercholesterolemia Bilateral carotid artery stenosis Benign essential hypertension Family History Family History Father Cancer Mother Chronic mental illness Son In good health Daughter In good health Surgical History Surgical History Hx of colonoscopy History of common carotid artery stent placement H/O radical prostatectomy History of inguinal hernia repair Social History Social History Household Members: Children Housing: House Do you presently have visiting nurse or other home services: No Alcohol intake: never Patient Tobacco Use Status: Former Tobacco user Tobacco use type: Cigarette e-Cigarette/Vaping Use: Never Used Second Hand Smoke Exposure: No Substance Use Type: Marijuana Advance Directives: Yes Advance Directives on File: Yes Advance Directives Date on File: 12/08/22 Do you have a plan to hurt others: No Plan service: No Current occupational status: retired Cognitive needs: No Hearing needs: No Vision needs: Yes Meds Allergies Allergy/AdvReac Type Severity Reaction Status Date / Time zolpidem AdvReac Unknown sleepwalkin Verified 02/09/24 12:49 g Active Medications: Current Medications Dextrose (D10) 250 mls @ 750 mls/hr IV Q15M PRN PRN Reason: per Hypoglycemia Standing Ord. Last Admin: 02/09/24 15:22 Dose: 750 mls/hr Norepinephrine Bitartrate (Levophed) 8 mg in 250 mls @ 0 mls/hr IVCONT .Q0M [facility]; Protocol Home Medications ?Medication ?Instructions ?Recorded ?Confirmed ?Last Taken ?Type cholecalciferol (vitamin D3) 25 25 mcg PO DAILY 12/01/22 01/24/24 12/02/23 History mcg (1,000 unit) tablet cyanocobalamin (vitamin B-12) 1,000 mcg PO DAILY 12/01/22 01/24/24 12/02/23 History 1,000 mcg tablet [id number] 300 mcg-K 60 1 tab PO DAILY 12/01/22 01/24/24 12/02/23 History mcg-lycop 600 mcg-lutein 300 mcg tablet (Centrum Silver Men) aspirin 81 mg tablet,delayed 81 mg PO DAILY 02/19/23 01/24/24 12/02/23 History release (Adult Low Dose Aspirin) Physical Exam Vital Signs: Last Vital Signs Temp 97.8 F 02/09/24 13:34 Pulse 108 H 02/09/24 15:24 Resp 24 H 02/09/24 15:24 BP 98/50 L 02/09/24 15:24 Pulse Ox 98 02/09/24 15:24 O2 Del Method Nasal Cannula 02/09/24 15:24 O2 Flow Rate 4 02/09/24 15:24 BMI result Body Mass Index 18.5 Const General: comfortable and no acute distress Orientation/consciousness: oriented to person, oriented to place and oriented to time Neck Neck: Yes no JVD Resp Effort & Inspection: able to speak in complete sentences Auscultation: rhonchi Cardio Jugular venous distension: no JVD Rate: regular rate Rhythm: regular rhythm Heart sounds: S1 normal heart sound present and S2 normal heart sound present GI Palpation (GI): Soft to palpation Rectal Exam - Male: No tenderness General: Yes no CVA tenderness Back/Spine/Pelvis Back: no CVA tenderness Skin Rashes: no rashes Neuro General: oriented to person, oriented to place and oriented to time Extrem General: Yes normal to inspection, No edema and No pedal edema Results Lab Results 02/09/24 13:16 02/09/24 13:16 Lab results: Chemistry 02/09/24 13:16 Sodium 135 Potassium 5.8 H D Carbon Dioxide 10 L* D BUN 77 H Creatinine 5.29 H* Calcium 8.8 D Hematology 02/09/24 13:16 WBC 30.3 H* Hgb 8.5 L Plt Count 265 Assessment and Plan (1) MARKUS (acute kidney injury): Status: Resolved (2) Prostate cancer: Status: Acute (3) Sepsis: Qualifiers: Sepsis type: sepsis due to unspecified organism Sepsis acute organ dysfunction status: with acute organ dysfunction Severe sepsis acute organ dysfunction type: unspecified Severe sepsis shock status: unspecified Qualified Code(s): A41.9 - Sepsis, unspecified organism; R65.20 - Severe sepsis without septic shock Status: Acute (4) Hyperkalemia: Status: Acute Plan MARKUS, likely multifactorial (sepsis, pyelonephritis) recommend ICU management recommend serum cortisol, bicarb drip recommend abdominal imaging if hydronephrosis, consult urology no indication for dialysis at this time shall continue to follow Discussed with Dr Chan Procedures Date of Service Date of Service: 02/09/24
[2024-02-09 15:56] LABS: Venous Blood Gas Refer to POC result
[2024-02-09] MEDS: Norepinephrine Bitartrate/D5W 8 MG/250 ML PLAST..BAG 5.18 MG IVCONT (15:59)
--- NOTE | 2024-02-09 16:00 | PC.NURSE ---
repeat POC post dextrose = 116mg/dL. pt started on levophed drip via central line at this time. infusion currently running @ 0.05mcg/kg/min at this time. effectiveness pending.
[2024-02-09 16:11] LABS: Glucose, Whole Blood 116 mg/dL (60-115)
[2024-02-09 16:11] LABS: Glucose, Whole Blood 69 mg/dL (60-115)
--- NOTE | 2024-02-09 16:11 | PC.NURSE ---
MAP >65 at this time. levophed continues to infuse @ 0.05mcg/kg/min at this time. provider notified/aware. attempted to place epps catheter at this time but was unsuccessful. large amount of brown/sediment noted while inserting catheter. was not able to advance. will reattempt.
[2024-02-09 16:12] LABS: Alanine Aminotransferase 25 U/L (0-40); Albumin Level 2.3 g/dL (3.5-5.0); Alkaline Phosphatase 113 U/L (39-117); Anion Gap 16 (12-20); Aspartate Amino Transferase 56 U/L (5-37); Bilirubin Total 0.5 mg/dL (0.0-1.0); Blood Urea Nitrogen 74 mg/dL (9-16); Carbon Dioxide 16 mmol/L (22-29); Chloride 104 mmol/L (96-108); Estimated Glomerular Filt Rate 12; Glucose Random 214 mg/dL (60-115); Potassium 4.5 mmol/L (3.3-5.1); Sodium 131 mmol/L (135-145); Total Protein 4.6 g/dL (6.5-8.0)
--- NOTE | 2024-02-09 16:17 | PC.NURSE ---
levophed titrated per protocol. pt remains hypotensive. MAP = 55. provider notified/aware.
[2024-02-09 16:24] LABS: Calcium 7.8 mg/dL (8.4-10.2)
[2024-02-09 16:25] LABS: ~Lactic Acid-LAB USE ONLY 3.5 mmol/L (0.5-2.0)
[2024-02-09 16:37] LABS: Lipase 7 U/L (8-78)
--- NOTE | 2024-02-09 16:39 | PC.NURSE ---
levophed infusing @ 0.2 mcg/kg/min per Dr. Nam order. target MAP = 75 at this time. current MAP of 53 at this time. py remains sinus tachy/hypotensive. on 4L via NC. effectiveness pending.
[2024-02-09 16:43] LABS: Hematocrit 21.5 % (42.0-52.0); Mean Corpuscular HGB Conc 32.6 g/dl (31.0-36.0); Mean Corpuscular Hemoglobin 28.1 pg (27.0-33.0); Mean Corpuscular Volume 86.3 fL (80.0-98.0); Mean Platelet Volume 9.7 fL (9.4-12.4); Platelet Count 172 X10*3/uL (160-400); Red Blood Count 2.49 X10*6/uL (4.60-5.80)
[2024-02-09] MEDS: vancomycin HCL 1,250 MG in 0.9 % Sodium Chloride 250 ML 166.67 MG IV (16:50)
[2024-02-09 16:52] LABS: WBC ABN SCTR FOR CBC 1; White Blood Count 19.6 X10*3/uL (4.8-10.8)
[2024-02-09 17:47] LABS: Glucose, Whole Blood 106 mg/dL (60-115)
[2024-02-09 17:51] LABS: Neutrophils Percent Manual 83 % (45-73)
[2024-02-09 17:53] LABS: Band Neutrophils Percent 10 % (3-5); Lymphocytes Absolute Manual 0.6 X10*3/uL (1.2-4.9); Lymphocytes Percent Manual 3 % (20-40); Metamyelocytes Absolute 0.4 X10*3/uL; Metamyelocytes Percent 2 %; Monocytes Absolute Manual 0.4 X10*3/uL (0.1-1.2); Monocytes Percent Manual 2 % (2-11); Neutrophils Absolute Manual 18.2 X10*3/uL (2.0-8.3)
[2024-02-09 17:55] LABS: Reflex Lactate? 2 Y
[2024-02-09 17:55] LABS: Burr Cells 3+ (>5) /OIF; Ovalocytes 1+ (5-14) /OIF; RBC Morphology NOTED; Toxic Vacuolation PRESENT
--- NOTE | 2024-02-09 17:55 | PC.NURSE ---
multiple attempts made at placing epps catheter. this RN reattempted as well as another RN w/ no success. foul smelling discharge noted from pt's penis when attempting to advance catheter. provider notified/aware. urology order placed.
[2024-02-09 17:56] LABS: Platelet Estimate NORMAL (NORMAL); Platelet Morphology Comment NORMAL
[2024-02-09] MEDS: Lidocaine HCl 2 % Urojet 10 ML JEL.PF.APP TOPICAL (17:57)
--- NOTE | 2024-02-09 18:38 | PC.NURSE ---
14Fr w/ 10ml epps catheter placed by after multiple unsuccessful attempts. sureglide guidewire used to advance catheter. epps patent/intact. 100ml of dark brown geronimo colored foul smelling urine noted immediately post output. cloudy/purulent/sediment noted. urine obtained/sent to lab.
--- NOTE | 2024-02-09 18:49 | PC.NURSE ---
levophed drip titrated per provider order d/t decreased MAP. pt to CT at this time. accompanied by this RN.
[2024-02-09 19:04] LABS: ~Lactic Acid-LAB USE ONLY 2.5 mmol/L (0.5-2.0)
[2024-02-09] MEDS: iohexoL 350 MG/ML 100 ML INFUS..BTL 85 ML IV (19:13)
[2024-02-09 19:16] LABS: Appearance Urine Turbid; Color Urine BROWN; Glucose Urine UA Negative (Negative); PH 8.5 (5.0-9.0); UMIC TRIGGER UA YES
--- NOTE | 2024-02-09 19:22 | PC.NURSE ---
unit of RBC received from blood bank at this time. pt currently receiving infusion via peripheral IV in left AC. pt remains sinus tachy on the surveillance system monitor. remains of 4L via NC. levophed continues to infuse @ 0.4mcg/kg/min per provider order. MAP = 91. provider notified/aware.
[2024-02-09 19:23] LABS: Bacteria Urine 4+ (None Seen); Hyaline Casts Urine 0-2 /LPF (0-2)
--- NOTE | 2024-02-09 19:37 | PC.NURSE ---
pt tolerated first 15min of RBC infusion well. no complications noted. abx administered per provider order. plan of care ongoing.
[2024-02-09 19:50] LABS: CDiff Gene PCR POSITIVE (Negative)
--- NOTE | 2024-02-09 20:21 | PC.NURSE ---
Addendum entered by Laurence Pino 03/10/24 11:21: late entry: pt being transported via [facility] w/ 2nd unit of PRBC infusing and levophed drip via central line at this time. Original Note: report given to MOI Bernal at this time.
[2024-02-09 20:50] LABS: CDIFF Internal ctrl Dots and bkg OK (V); CDiff Toxin Negative (Negative)
--- NOTE | 2024-02-09 21:10 | PC.NURSE ---
report given to JUNE Perrin at [facility] at this time.
[2024-02-10 09:20] LABS: Adenovirus F 40/41 Not Detected (Not Detect.); Astrovirus Not Detected (Not Detect.); Campylobacter Not Detected (Not Detect.); Cryptosporidium Not Detected (Not Detect.); Cyclospora cayetanensis Not Detected (Not Detect.); E. coli EAEC Not Detected (Not Detect.); E. coli EPEC Not Detected (Not Detect.); E. coli ETEC Not Detected (Not Detect.); E. coli STEC Not Detected (Not Detect.); Entamoeba histolytica Not Detected (Not Detect.); Giardia lamblia Not Detected (Not Detect.); Norovirus GI/GII Not Detected (Not Detect.); Plesiomonas shigelloides Not Detected (Not Detect.); Rotavirus A Not Detected (Not Detect.); Salmonella Not Detected (Not Detect.); Sapovirus Not Detected (Not Detect.); Shigella sp./EIEC Not Detected (Not Detect.); Vibrio Not Detected (Not Detect.); Vibrio Cholerae Not Detected (Not Detect.); Yersinia enterocolitica Not Detected (Not Detect.)
== END 2024-02-09 21:12 | disposition short-term general hospital (02) ==
PROVIDERS: Emergency Provider Emergency Medicine; PCP Internal Medicine
DX: A41.9 Sepsis, unspecified organism (principal); R65.21 Severe sepsis with septic shock; D64.9 Anemia, unspecified; N17.9 Acute kidney failure, unspecified; E87.5 Hyperkalemia; E87.20 Acidosis, unspecified; R19.7 Diarrhea, unspecified; R31.9 Hematuria, unspecified; C61 Malignant neoplasm of prostate; K52.0 Gastroenteritis and colitis due to radiation; R06.02 Shortness of breath; R05.9 Cough, unspecified; I10 Essential (primary) hypertension; E78.00 Pure hypercholesterolemia, unspecified; R25.1 Tremor, unspecified; N13.9 Obstructive and reflux uropathy, unspecified; I65.23 Occlusion and stenosis of bilateral carotid arteries; Z85.46 Personal history of malignant neoplasm of prostate; Z92.3 Personal history of irradiation; Z79.82 Long term (current) use of aspirin; Z79.02 Long term (current) use of antithrombotics/antiplatelets; Z79.899 Other long term (current) drug therapy; Z87.891 Personal history of nicotine dependence; Z03.818 Encounter for observation for suspected exposure to other biological agents ruled out; Z96.0 Presence of urogenital implants
CPT/HCPCS: 0241U; 36410; 36415; 36430; 36556; 36569; 36573; 51702; 51798; 71045; 74177; 80048; 80053; 80076; 81001; 82010; 82272; 82803; 82947; 83605; 83690; 83880; 84484; 85007; 85025; 85027; 85610; 85730; 86850; 86900; 86901; 86923; 87040; 87077; 87086; 87177; 87186; 87205; 87209; 87324; 87493; 87507; 93005; 96361; 96365; 96366; 96367; 96375; 99285; 99291; 99292; J0613; J1836; J2543; J3371; J7120; P9016; Q9967

== ENCOUNTER → 2024-02-09 13:11 | Outpatient (BNV) | payer MEDICARE, SELFPAY | PROVIDERS: Emergency Provider Emergency Medicine; PCP Internal Medicine; Visit Provider Nurse Practitioner Family | DX: N17.9 Acute kidney failure, unspecified (principal); C61 Malignant neoplasm of prostate; A41.9 Sepsis, unspecified organism; R65.20 Severe sepsis without septic shock; E87.5 Hyperkalemia | CPT/HCPCS: 99285; 99499 ==

== ENCOUNTER → 2024-02-09 13:16 | Outpatient (BNV) | payer MEDICARE, SELFPAY | PROVIDERS: Emergency Provider Emergency Medicine; PCP Internal Medicine; Visit Provider Internal Medicine | DX: R06.00 Dyspnea, unspecified (principal) | CPT/HCPCS: 93010 ==